=== PATIENT | male | born 1955 | race Caucasian/White ===

== ENCOUNTER → 2016-09-06 | Outpatient (CLI) | payer BC ==
[~2016-09-06] MED LIST: ACHYD1T PO; ASCO500T6 PO; ASPI325T32 PO; AZIT250T PO; CALC-694 PO; CATHETER FLUSH 10 ML SYR IV PRN; CETI10TA17 PO; CHOL20003 PO; COLE1TAB PO; Coumadin PO; GLIM4TAB PO; INSU100V6 SQ; IRON150C3 PO; LISI20TA PO; LUTE20TA PO; MTF500T PO; NAPR220T66 PO; NFR150C PO; OXYC-464 PO; POTA99TA21 PO; SENN-20 PO; TRAM50TA2 PO; TRM50T PO; [UNRECOGNIZED DRUG - OTHER] TP
--- NOTE | 2016-09-06 19:24 | Diagnostic Imaging Report ---
EXAMINATION: Three-phase bone scan. INDICATION: Bilateral knee pain. TECHNIQUE: After the intravenous administration of 26.3 Tc labeled "MDP" intravenously, three-phase bone scan over the knees was performed with flow, blood pool and delayed phase images obtained. FINDINGS: There are bilateral knee prostheses seen with photopenia expected at their sides. There is mild hyperemia of the tibial side of the prosthesis, particularly on the right side. There is also blood pool phase moderate activity around the right knee and mild activity around the left knee. There is delayed phase mild increased activity around the prostheses, bilaterally. IMPRESSION: Nonspecific mild to moderate activity around the knee prostheses, slightly more prominent around the right knee. Concurrent radiographs are not available. Slight loosening or reactive inflammatory changes are possible. Infection is unlikely. Correlate clinically and with new radiographs. Dictated by: Dictated on workstation # [id number]
== END ==
LOC: CARD 11:33
PROVIDERS: ATTEND Orthopaedic Surgery
DX: M25.561 Pain in right knee (principal); M25.562 Pain in left knee; Z96.653 Presence of artificial knee joint, bilateral
CPT/HCPCS: 78315

== ENCOUNTER → 2016-09-12 | Outpatient (CLI) | payer BC ==
[~2016-09-12] MED LIST changes: -CATHETER FLUSH 10 ML SYR IV PRN
[2016-09-12 17:45] LABS: MEAN PLATELET VOLUME 10.5 FL (7.4-10.4); RED BLOOD COUNT 4.3 10^6/uL (4.35-5.85); RED CELL DISTRIBUTION WIDTH 15.4 % (10.0-14.5); WHITE BLOOD COUNT 7.2 10^3/uL (4.3-11.0)
[2016-09-12 18:00] LABS: URIC ACID 4.2 MG/DL (2.6-7.2); hs C REACTIVE PROTEIN 0.09 MG/DL (0.00-0.50)
== END ==
LOC: LAB 17:18
PROVIDERS: ATTEND Nurse Practitioner Family
DX: M25.561 Pain in right knee (principal); M25.562 Pain in left knee; M79.1 Myalgia
CPT/HCPCS: 36415; 84550; 85027; 85652; 86038; 86141; 86430

== ENCOUNTER → 2016-09-20 | Outpatient (CLI) | payer BC ==
--- NOTE | 2016-09-20 17:07 | Diagnostic Imaging Report ---
PROCEDURE: MRI lumbar spine. TECHNIQUE: Multiplanar, multisequence MRI of the lumbar spine was performed without contrast. INDICATION: Bilateral leg pain. FINDINGS: There is satisfactory alignment at the posterior spinal line. Slight straightening of the lordotic curvature however is noted which may relate to muscle spasm. The vertebral body heights are preserved. There is mild endplate edema along the lower endplates of L2 and L4 levels. There is disc desiccation at all levels. There is moderate disc height loss at the L2-L3 level. There is unremarkable appearance of the cauda equina and conus medullaris. Incidental note of a 9 cm T2 hyperintense lesion in the left flank could be a renal cystic lesion. This is not well evaluated however on this exam. Renal ultrasound correlation is recommended. T12-L1: There is minimal disc herniation. There is no central canal, lateral recess, or foraminal stenosis. L1-L2: There is minimal disc bulge with no significant central canal or lateral recess stenosis. No foraminal narrowing. L2-L3: There is a diffuse disc bulge and moderate facet hypertrophy. There is moderate central canal stenosis reducing the AP dimension of the canal to 8.2 mm and there is rfog-ap-vlmzqsvf lateral recess stenosis on the right side and mild lateral recess stenosis on the left. The foramina demonstrate no significant stenosis. L3-L4: There is a diffuse disc bulge and xilduodu-lb-jcojwh facet arthropathy. There is moderate central canal stenosis reducing the AP dimension of the canal to 7.8 mm. There is bilateral eirv-an-hubnwucz lateral recess stenosis abutting the descending L4 nerve roots. The foramina demonstrate mild narrowing on the right and no significant narrowing on the left. L4-L5: There is a mild disc bulge and bilateral moderate facet arthropathy. No central canal stenosis. There is bhotecun-xj-vifmcd lateral recess narrowing on the left encroaching upon the descending left L5 nerve roots. There is moderate stenosis of the right lateral recess abutting the descending right L5 root. The foramina demonstrate moderate stenosis on the left and no significant stenosis on the right side. L5-S1: There is a minimal disc bulge and mild facet hypertrophy bilaterally. No central canal or lateral recess stenosis. No foraminal narrowing. IMPRESSION: 1. Zps-sl-zzctm lumbar spine disc and facet degenerative changes. There is xyqlumoo-qk-dacvpc lateral recess stenosis at L4-L5 on the left side encroaching upon the descending left L5 nerve root. Other findings as above. 2. There is a large partially visualized left flank lesion probably arising from the left kidney and could be a cystic lesion. Better evaluation with a renal ultrasound is recommended. Report was faxed to the office of Dr. Kang Mills at 5:06 p.m., by marlon (for WINTER). Dictated by: Dictated on workstation # [id number]
== END ==
LOC: RAD 15:26
PROVIDERS: ATTEND Orthopaedic Surgery
DX: M51.37 Other intervertebral disc degeneration, lumbosacral region (principal); M48.06 Spinal stenosis, lumbar region
CPT/HCPCS: 72148

== ENCOUNTER → 2016-10-15 | Outpatient (CLI) | payer BC ==
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
--- NOTE | 2016-10-15 19:33 | Diagnostic Imaging Report ---
CLINICAL INDICATION: Patient states he has low back pain with bilateral knee pain. EXAM: MRI of the thoracic spine performed without IV contrast. Sequences include sagittal T1, sagittal T2, sagittal T2 fat-sat, coronal T1, and axial T2. COMPARISON: None. FINDINGS: There is levoscoliosis of the upper thoracic spine with apex at the T2-T3 intervertebral level. There is no gross vertebral anomaly. There is associated mild right curvature of the mid to lower thoracic spine. There are minimal sized anterior spurs involving the mid and lower thoracic spine. There is mild to moderate facet arthropathy which is worse in the mid to lower thoracic spine region. There is moderate left-sided T3-T4 and mild to moderate left-sided T4-T5 neural foramen narrowing due to facet arthropathy. There is moderate bilateral neural foramen narrowing due to facet arthropathy at the T8-T9 level. There is no significant central spinal canal narrowing. Intervertebral disc heights are well-maintained. There is no significant soft tissue abnormality. The thoracic spinal cord has normal signal with normal caliber. There is no acute thoracic spine fracture or dislocation. There is an incompletely imaged large cystic structure in the expected region of the left kidney. There appears to be a moderate-sized hiatal hernia. IMPRESSION: 1: There is no acute fracture or dislocation. 2: There is scoliosis of the thoracic spine described above. 3: There is mild to moderate degenerative disease of the thoracic spine. There is multilevel mild to moderate neural foramen narrowing. There is no significant central canal narrowing. 4: There is an incompletely imaged large cystic structure in the expected region of the left kidney. Nonemergent renal ultrasound is suggested for further evaluation. 5: There appears to be a moderate sized hiatal hernia. Chest x-ray and KUB x-ray would better evaluate. Dictated by: Dictated on workstation # [id number]
== END ==
LOC: RAD 15:43
PROVIDERS: ATTEND Orthopaedic Surgery Orthopaedic Surgery of the Spine
DX: M54.2 Cervicalgia (principal); M54.14 Radiculopathy, thoracic region; I70.213 Atherosclerosis of native arteries of extremities with intermittent claudication, bilateral legs
CPT/HCPCS: 72141; 72146; 93922; 93925

== ENCOUNTER 2016-11-02 06:44 | Inpatient (IN) | payer BC ==
[~2016-11-02] VITALS: Ht 193 cm; Wt 101.2 kg
[2016-11-02 08:01] LABS: KETONES,URINE 3+ (NEGATIVE); LEUKOCYTE ESTERASE ,URINE 1+ (NEGATIVE); NITRITE,URINE NEGATIVE (NEGATIVE); PH,URINE 5 (5-9); PROTEIN,URINE 3+ (NEGATIVE); UROBILINOGEN,URINE 1 MG/DL (NORMAL)
[2016-11-02 08:13] LABS: SQUAMOUS EPITHELIAL CELL,UR RARE /HPF
[2016-11-02 08:14] LABS: BILIRUBIN,URINE 1+ (NEGATIVE); GRANULAR CASTS,URINE 25-50 /LPF
[2016-11-02] MEDS ORDERED: NS IV 1000 ML 1,000 ML IV ONE (08:19)
[2016-11-02 08:29] LABS: BASOPHILS % (AUTO) 0 % (0-10); EOSINOPHILS % (AUTO) 0 % (0-10); LYMPHOCYTES # (AUTO) 1.2 X 10^3 (1.0-4.0); LYMPHOCYTES % (AUTO) 7 % (12-44); MEAN CORPUSCULAR HEMOGLOBIN 28 PG (25-34); MEAN CORPUSCULAR HGB CONC 32 G/DL (32-36); MEAN CORPUSCULAR VOLUME 89 FL (80-99); MEAN PLATELET VOLUME 10.3 FL (7.4-10.4); MONOCYTES # (AUTO) 1.5 X 10^3 (0.0-1.0); MONOCYTES % (AUTO) 9 % (0-12); NEUTROPHILS # (AUTO) 15.1 X 10^3 (1.8-7.8); NEUTROPHILS % (AUTO) 85 % (42-75); PLATELET COUNT 202 10^3/uL (130-400); RED BLOOD COUNT 4.45 10^6/uL (4.35-5.85); RED CELL DISTRIBUTION WIDTH 14.9 % (10.0-14.5); WHITE BLOOD COUNT 17.8 10^3/uL (4.3-11.0)
[2016-11-02] MEDS ORDERED: cefTRIAXone INJECTION 1,000 MG in NS (IVPB) 50 ML IV ONE (08:30)
[2016-11-02 08:38] LABS: INR 1.1 (0.8-1.4); PROTHROMBIN TIME PATIENT 13.7 SEC (12.2-14.7)
[2016-11-02 08:47] LABS: BAND NEUTROPHILS 1 %; LYMPHOCYTES % (MANUAL) 10 %; NEUTROPHILS % (MANUAL) 83 %
[2016-11-02 08:49] LABS: ALANINE AMINOTRANSFERASE 18 U/L (0-55); ALBUMIN 3.7 G/DL (3.2-4.5); ANION GAP 9 MMOL/L (5-14); ASPARTATE AMINO TRANSFERASE 21 U/L (5-34); BILIRUBIN,TOTAL 0.9 MG/DL (0.1-1.0); BLOOD UREA NITROGEN 16 MG/DL (7-18); BUN/CREATININE RATIO 14; CALCIUM 9.2 MG/DL (8.5-10.1); CARBON DIOXIDE 27 MMOL/L (21-32); CHLORIDE 102 MMOL/L (98-107); CREATININE SERUM 1.11 MG/DL (0.60-1.30); GFR ESTIMATED > 60; GLUCOSE 157 MG/DL (70-105); POTASSIUM 4.1 MMOL/L (3.6-5.0); SODIUM 138 MMOL/L (135-145); TOTAL PROTEIN 6.9 G/DL (6.4-8.2); hs C REACTIVE PROTEIN 12.29 MG/DL (0.00-0.50)
--- NOTE | 2016-11-02 09:14 | Diagnostic Imaging Report ---
EXAMINATION: PA and lateral views of the chest. INDICATION: Chest pain. FINDINGS: There is a mild opacity in the right lung base may relate to mild pneumonia or more likely subsegmental atelectasis. The left lung is clear. Background pulmonary hyperinflation seen. The heart size is normal. No effusion or pneumothorax. IMPRESSION: Small right basilar opacity favored to be atelectasis, but could relate to a mild pneumonia. Correlate clinically. Dictated by: Dictated on workstation # [id number]
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
[2016-11-02] MEDS ORDERED: NS 100 ML (IVPB) BAG IV ONE ×2 (10:00→13:45)
[2016-11-02] MEDS ORDERED: CATHETER FLUSH 10 ML SYR IV PRN ×3 (10:00→13:45)
[2016-11-02] MEDS ORDERED: IOHEXOL 350 MG/ML 100 ML (OMNIPAQUE 350) VIAL IV ONE ×2 (10:00→13:45)
--- NOTE | 2016-11-02 10:52 | Diagnostic Imaging Report ---
CT scan of the neck and chest performed with intravenous contrast. INDICATION: Pharyngitis. Coughing up blood. FINDINGS: CT neck: There is soft tissue thickening and enhancement in the peritonsillar regions more prominent on the right side. This is not associated with an abscess. This is presumably related to infection rather than an infiltrative underlying mass. Correlate with clinical exam findings. There is no abnormality seen in the larynx with symmetric vocal cords. There is a mildly enlarged lymph node measuring 1.6 CM in short axis. This is at the level II right cervical chain. No other significant lymphadenopathy in the neck identified. The jugular vein and the carotid arterial vascular enhancement appeared grossly unremarkable. The parotid, submandibular and thyroid exams appear unremarkable. The osseous structures demonstrate degenerative changes with nonaggressive lesion. The paranasal sinuses appear clear. CT chest: There are pulmonary nodules in the right lower lobe up to 1.1 CM in size. Smaller nodules more posteriorly and inferiorly in the right the lower lobe are seen. There is no significant consolidation or sizable mass however and these nodules are probably unrelated to the symptoms. There are infracarinal lymph nodes up to 1.2 CM in size with nonspecific calcifications seen. There are prominent right hilar lymph nodes up to 1.6 CM in size. No axillary lymphadenopathy is seen. The heart size is normal. No pericardial or pleural effusion. There is a small to moderate hiatal hernia. Nonspecific calcifications at the undersurface of the right diaphragm is seen. The sections in the upper abdomen demonstrate partially visualized large mass in the left kidney measuring at least 10 x 8.7 x 10 CM concerning for primary renal cancer. The osseous structures appear grossly unremarkable. IMPRESSION: CT neck: There is a prominent thickening in the peritonsillar region with associated mild upper right neck lymphadenopathy likely related to infection. Correlate clinically and ensure resolution after treatment. CT chest: 1. Partially visualized 10 cm left renal mass suspicious for renal cell carcinoma. 2. Nodules in the right side lower lobe up to 1.1 CM in size, although nonspecific are concerning for metastasis. There are also slightly enlarged right hilar and infracarinal lymph nodes which could be neoplastic. 3. Small to moderate-sized hiatal hernia. Dictated by: Dictated on workstation # [id number]
[2016-11-02] MEDS ORDERED: fentaNYL INJECTION 100 MCG/2 ML AMP IVP ONE (11:00)
[2016-11-02 11:40] VITALS: BP 162/93
[2016-11-02] MEDS: NS IV 1000 ML 1,000 ML IV SCH (12:17)
[2016-11-02] MEDS: ACETAMINOPHEN 325 MG TABLET/CAPLET (TYLENOL) PO PRN (12:17)
[2016-11-02] MEDS: AZITHROMYCIN 500 MG/NS 250 ML IVPB IV SCH ×2 (12:18)
[2016-11-02 12:49] VITALS: BP 135/62
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
[2016-11-02] MEDS: IBUPROFEN TABLET 200 MG TAB PO PRN ×2 (13:12→22:43)
[2016-11-02] MEDS ORDERED: NAPR220T66 PO (13:20)
[2016-11-02] MEDS ORDERED: INSU100I10 SC (13:20)
[2016-11-02] MEDS ORDERED: FERR-84 PO (13:20)
[2016-11-02 13:36] VITALS: BP 125/73
--- NOTE | 2016-11-02 14:02 | Progress Note-Standard ---
Standard Progress Note HPI/CC on Admission this is a 61-year-old white male who began having a sore throat yesterday. He presented to the emergency room today with complaints of inability to breathe and inability to swallow. He notes he had night sweats last night but has not had antecedent to this time. He also is being worked up for a left kidney mass uncertain etiology, that was found incidentally on an MRI of the thoracic spine. He does have some pulmonary nodules as well. He had been coughing up some blood this morning. He was hospitalized with a similar episode of tonsillitis approximately 6 years ago. He denies having any hematuria. Progress Notes/Assess & Plan Date Seen 11/02/16 Time Seen by Provider: 07:26 Assess & Plan/Chief Complaint 1230- Was consulted on patient for pharyngitis. Patient currently admitted through ER. States pain is now a 5 out of 10 and was initially a 7 out of 10 in his throat. He is getting ready to drink some clear liquids. States throat discomfort began yesterday morning and just continued to worsen. He at one point states he was spitting out blood tinged sputum. Had CT neck completed that did note prominent thickening of the peritonsillar region with right lymphadenopathy. No drainable mass noted. Reports history or tobacco usage. Physical Exam- The patent's dental partial was removed. His pharyngial cavity was reddened with obvious swelling. No exudate noted. Tongue white. Tenderness noted to palpation of lymphadenopathy on the right side Assessment- Pharyngitis, lymphadenopathy Plan- Will continue with current Rocephin and azithromycin treatments. Will watch to see if patients symptoms continue to improve. Labs Laboratory Tests 11/02/16 08:15 Short Stay Final Diagnosis pharyngitis. lymphadenopathy. KERA ALFORD [employer] Nov 02, 2016 14:01
[2016-11-02] MEDS: inSUlin (REGULAR) HUMAN 1 UNIT/0.01 ML (CHARGE PER UNIT) SC SCH ×2 (14:19→20:28)
[2016-11-02] MEDS: ENOXAPARIN 40 MG/0.4 ML (LOVENOX) SYR SC SCH (14:21)
[2016-11-02] MEDS: fentaNYL INJECTION 100 MCG/2 ML AMP IV PRN ×2 (14:27→22:40)
[2016-11-02 14:29] VITALS: BP 118/68
[2016-11-02 15:39] VITALS: BP 105/67
--- NOTE | 2016-11-02 16:25 | Diagnostic Imaging Report ---
PROCEDURE: CT abdomen and pelvis with and without contrast. TECHNIQUE: Precontrast acquisitions were acquired through the abdomen and pelvis. Multiple contiguous axial images were obtained through the abdomen and pelvis after the administration of intravenous contrast. INDICATION: Followup of renal mass noted on CT scan of the chest from 11/02/2016. FINDINGS: There is a lobulated enhancing mass arising from the left kidney measuring upwards of 10 x 12 cm. This arises from the upper pole. The inferior portion of left kidney appears normal. Right kidney appears normal. No hydronephrosis. Liver shows no masses with normal enhancement. Gallbladder is absent. There is some air in the bile ducts consistent with previous surgery. Pancreas is atrophic. The spleen appears normal. The aorta and abdominal vessels show normal enhancement. There is atherosclerosis without aneurysm. No evidence of retroperitoneal adenopathy of pathologic size. There is large fixed hiatal hernia. The stomach and small bowel are not distended. The colon shows normal stool and gas pattern. The appendix is visualized and normal. There is diffuse diverticulosis with diffuse thickening of the sigmoid colon bowel wall. No free fluid or free air to indicate acute diverticulitis. Bladder is opacified on the delayed images and appears normal. IMPRESSION: 1. Large lobulated enhancing mass off the upper pole of the left kidney measuring upwards of 10 x 12 cm. This is consistent with primary renal cell carcinoma. No intra-abdominal adenopathy of pathologic size demonstrated. 2. Rather severe diverticulosis of the sigmoid colon with thickened colon bowel wall consistent with chronic inflammatory process. 3. Large fixed hiatal hernia without evidence of incarceration. Dictated by: Dictated on workstation # [id number]
[2016-11-02] MEDS: CEFUROXIME INJECTION 1,500 MG in NS (IVPB) 50 ML IV SCH (17:20)
--- NOTE | 2016-11-02 17:21 | Progress Note-Standard ---
Standard Progress Note Progress Notes/Assess & Plan Date Seen by Provider: Nov 02, 2016 Time Seen by Provider: 16:50 Progress/Assessment & Plan [facility] Patient seen sore throat better CT-shows thickening on right but no abscess tenderr right neck with nodes no abscess in neck currently on Rocephin and zithromax will switch to cefuroxime 1.5gm Iv q 8 D/c Rocephin regular diet will follow-up in am Final Diagnosis Acute Right Pharyngitis with cervical adenitis JAROD HEREDIA MD Nov 02, 2016 5:21 pm
[2016-11-02 19:07] VITALS: BP 117/67
[2016-11-02] MEDS ORDERED: inSUlin DETERMIR 1 UNIT/0.01 ML (LEVEMIR) CHARGE PER UNIT SQ SCH (21:00)
[2016-11-02] MEDS ORDERED: COLESTIPOL 1 GM (COLESTID) TAB PO SCH (21:00)
[2016-11-03] VITALS: BP 132/65
[2016-11-03] MEDS: NS IV 1000 ML 1,000 ML IV SCH ×2 (00:33→08:36)
[2016-11-03] MEDS: CEFUROXIME INJECTION 1,500 MG in NS (IVPB) 50 ML IV SCH ×3 (01:10→17:47)
[2016-11-03] MEDS: ACETAMINOPHEN 325 MG TABLET/CAPLET (TYLENOL) PO PRN ×2 (03:08→12:16)
[2016-11-03 04:00] VITALS: BP 123/65
[2016-11-03 05:35] LABS: BASOPHILS % (AUTO) 0 % (0-10); EOSINOPHILS # (AUTO) 0.2 10^3/uL (0.0-0.3); EOSINOPHILS % (AUTO) 1 % (0-10); LYMPHOCYTES # (AUTO) 1.4 X 10^3 (1.0-4.0); LYMPHOCYTES % (AUTO) 11 % (12-44); MEAN CORPUSCULAR HEMOGLOBIN 28 PG (25-34); MEAN CORPUSCULAR HGB CONC 31 G/DL (32-36); MEAN CORPUSCULAR VOLUME 91 FL (80-99); MEAN PLATELET VOLUME 10.8 FL (7.4-10.4); MONOCYTES # (AUTO) 1.5 X 10^3 (0.0-1.0); MONOCYTES % (AUTO) 11 % (0-12); NEUTROPHILS # (AUTO) 9.9 X 10^3 (1.8-7.8); NEUTROPHILS % (AUTO) 76 % (42-75); PLATELET COUNT 171 10^3/uL (130-400); RED BLOOD COUNT 3.94 10^6/uL (4.35-5.85); RED CELL DISTRIBUTION WIDTH 14.9 % (10.0-14.5)
[2016-11-03 06:10] LABS: ALANINE AMINOTRANSFERASE 26 U/L (0-55); ALBUMIN 3.1 G/DL (3.2-4.5); ANION GAP 7 MMOL/L (5-14); ASPARTATE AMINO TRANSFERASE 26 U/L (5-34); BILIRUBIN,TOTAL 0.5 MG/DL (0.1-1.0); BLOOD UREA NITROGEN 15 MG/DL (7-18); BUN/CREATININE RATIO 16; CALCIUM 8.1 MG/DL (8.5-10.1); CARBON DIOXIDE 24 MMOL/L (21-32); CHLORIDE 109 MMOL/L (98-107); CREATININE SERUM 0.91 MG/DL (0.60-1.30); GFR ESTIMATED > 60; POTASSIUM 4.2 MMOL/L (3.6-5.0); SODIUM 140 MMOL/L (135-145); TOTAL PROTEIN 5.7 G/DL (6.4-8.2)
[2016-11-03 06:14] LABS: GLUCOSE 60 MG/DL (70-105)
[2016-11-03] MEDS: inSUlin (REGULAR) HUMAN 1 UNIT/0.01 ML (CHARGE PER UNIT) SC SCH ×4 (06:19→20:24)
--- NOTE | 2016-11-03 06:28 | Progress Note-Standard ---
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
[2016-11-03] MEDS: GLIMEPIRIDE 4 MG (AMARYL) TAB PO SCH (06:54)
[2016-11-03 08:18] VITALS: BP 147/76
[2016-11-03] MEDS: lisINopril 20 MG (ZESTRIL) TAB PO SCH (08:20)
[2016-11-03] MEDS ORDERED: cefTRIAXone 1 GM/NS 50 ML IVPB IV SCH ×2 (08:30)
--- NOTE | 2016-11-03 11:04 | Progress Note-Hospitalist ---
Subjective HPI/CC On Admission Date Seen by Provider: Nov 03, 2016 Time Seen by Provider: 10:30 this is a 61-year-old white male who began having a sore throat yesterday. He presented to the emergency room today with complaints of inability to breathe and inability to swallow. He notes he had night sweats last night but has not had antecedent to this time. He also is being worked up for a left kidney mass uncertain etiology, that was found incidentally on an MRI of the thoracic spine. He does have some pulmonary nodules as well. He had been coughing up some blood this morning. He was hospitalized with a similar episode of tonsillitis approximately 6 years ago. He denies having any hematuria. Date Seen 11/03/16 Subjective/Events-last exam patient notes that he's been able to eat and drink much better than he had. Her Francis saw the patient this morning and noted that he would go could go home if our workup is otherwise complete. I discussed with the patient the fact that he does have a lobulated mass 10 x 12 cm on the left kidney. He had been told in the past that was on the right kidney and has been waiting for people to call him to get a doctor's appointment. He is agreeable to having Dr. Mcneil see him here and Dr. Saldivar as well Review of Systems HEENT: Sore Throat Musculoskeletal: neck pain Objective Exam Vital Signs Vital Sign - Last 12Hours 11/02/16 11/02/16 07:14 11:40 Temp 98.1 Pulse 101 Resp 18 B/P (MAP) 141/69 Pulse Ox 98 O2 Delivery Room Air Capillary Refill : Less Than 3 Seconds General Appearance: No Apparent Distress, WD/WN HEENT: Tonsillar Enlargement Neck: Limited Range of Motion, Lymphadenopathy (R) Respiratory: Lungs Clear, Normal Breath Sounds, No Accessory Muscle Use, No Respiratory Distress Cardiovascular: Regular Rate, Rhythm, No Edema, No Gallop, No Murmur Gastrointestinal: Normal Bowel Sounds, Soft Extremity: Normal Inspection Neurologic/Psychiatric: Alert, Oriented x3, No Motor/Sensory Deficits Skin: Normal Color, Warm/Dry Results/Procedures Lab Laboratory Tests 11/03/16 05:05 Assessment/Plan Assessment and Plan Assess & Plan/Chief Complaint 1.sepsis with tachycardia fever and elevated white count with a left shiftwhite count is down to 13,000-day number 2 Qianomax 2. severe pharyngitis,tonsillitis with lymphadenopathy no evidence of abscess on CT neck-Dr. Francis's consult appreciated 3. Left renal mass consistent with a primary renal cell cancer-have discussed with Dr. Ch and Dr. Mcneil- they will see and consult 4. Type II diabetes on insulin-hypoglycemic this morning we'll decrease the at bedtime Lantus 5. Conjunctivitis right eye-improved 6. Hypertension by history 7. Pulmonary nodules of unknown certain etiology-possibly related to a primary renal cell malignancy 8. oral thrush 9. 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 tobaccoism counseled to discontinue most likely discharge in the morning FELIPE STEWART MD Nov 03, 2016 11:04
[2016-11-03 11:30] LABS: BILIRUBIN,URINE NEGATIVE (NEGATIVE); KETONES,URINE NEGATIVE (NEGATIVE); LEUKOCYTE ESTERASE ,URINE NEGATIVE (NEGATIVE); NITRITE,URINE NEGATIVE (NEGATIVE); PH,URINE 5 (5-9); PROTEIN,URINE 2+ (NEGATIVE); UROBILINOGEN,URINE NORMAL (NORMAL)
[2016-11-03 11:45] LABS: WBC,URINE RARE /HPF
[2016-11-03 12:00] VITALS: BP 166/78
[2016-11-03] MEDS: AZITHROMYCIN 500 MG/NS 250 ML IVPB IV SCH ×2 (12:09)
[2016-11-03] MEDS: ENOXAPARIN 40 MG/0.4 ML (LOVENOX) SYR SC SCH (14:15)
--- NOTE | 2016-11-03 14:49 | Oncology Consultation ---
Visit Information Visit Information Date of Admission Nov 02, 2016 at 11:12 Attending Physician Danielle Tirado DO Admitting Physician Silver Nation MD Chief Complaint Renal cell mass and lung nodules Interval History Mr. Mejía is a 61 year old white admitted to the hospital due to fever, pharyngitis difficulty breath and swallow as well leukocytosis with left shift in differentials. He was treated with IV antibiotic since admission. He is getting much better and possible going home tomorrow. However, there was a large mass noticed on his scan in here and in [place]. Pt does not know what is going on and he needs an oncology evaluation. We are called to establish the care and further work up and follow up. He had his knee surgery by Dr Moore in [place] and still had pain in his legs 2 months after the knee surgery. He had MRI of spine evaluation in [place] and was told that he had kidney mass and also lung lesions. He was supposed to have a follow up with an oncologist in [place] but never happened. I consulted the patient on: 11/03/16 14:41 Constitutional: malaise EENTM: tearing, throat pain, throat swelling Respiratory: cough, hemoptysis, phlegm Cardiovascular: no symptoms reported Gastrointestinal: no symptoms reported Genitourinary: no symptoms reported Musculoskeletal: joint pain Psychiatric/Neurological: No Symptoms Reported Health Status Allergies Coded Allergies: meperidine (Verified Allergy, Unknown, RASH, 11/02/16) Home Medications Ascorbic Acid (Vitamin C) 500 Mg Tablet, 500 MG PO DAILY, (Reported) Calcium Carbonate/Vitamin D3 (Calcium 600 + Vit D Caplet) 1 Each Tablet, 1 TAB PO BID, (Reported) Cholecalciferol (Vitamin D3) (Vitamin D3) 2,000 Unit Capsule, 4,000 UNIT PO DAILY, (Reported) Colestipol Hcl,Micronized (Colestipol Hcl) 1 Gm Tablet, 2 GM PO BID, (Reported) TAKES 2 (1GM) TABLET Ferrous Sulfate (Iron) 325 Mg Tablet, 325 MG PO DAILY PRN for LOW RED BLOOD COUNT, (Reported) Glimepiride (Glimepiride) 4 Mg Tablet, 4 MG PO BID, (Reported) Insulin Glargine,Hum.rec.anlog (Lantus Solostar) 100 Unit/1 Ml Insuln.pen, 20 UNITS SC HS, (Reported) Lisinopril (Prinivil) 20 Mg Tablet, 20 MG PO DAILY, (Reported) Lutein (Lutein) 20 Mg Tablet, 40 MG PO DAILY, (Reported) Metformin Hcl (Metformin 500 Mg) 500 Mg Tablet, 500 MG PO BID WITH MEALS, ( Reported) Naproxen Sodium (Aleve) 220 Mg Tablet, 440 MG PO BID, (Reported) TAKES 2 (220MG) TABLETS Potassium Gluconate (Potassium) 99 Mg Tablet, 99 MG PO DAILY, (Reported) Flako AC/Safflower Oil (Vitamin E Beauty Oil) 52 Ml Oil, TP BID, (Reported) APPLY TO KNEES GIE-Xfttzk-Ignoom Hx Patient Social History Marrital Status: single Employed/Student: employed Alcohol Use: Denies Use Recreational Drug Use: No Smoking Status: Current Everyday Smoker Type Used: Cigarettes Recent Foreign Travel: No Contact w/other who traveled: No Recent Infectious Disease Expo: No Recent Hopitalizations: No Physical Abuse Screen: No Sexual Abuse: No Immunizations Up To Date Tetanus Booster (TDap): More than 5yrs Date of Pneumonia Vaccine: Sep 08, 2014 Family Medical History Significant Family History: No Pertinent Family Hx Family History: Diabetes mellitus 19 FATHER 19 MOTHER G8 BROTHER FH: skin cancer 19 MOTHER Family history: Arthritis Family history: Coronary thrombosis Family history: Diabetes mellitus History of - respiratory disease No Family History of: Abdominal aortic aneurysm Rush's disease Alcoholism Aphasia Cancer Cancer of colon Cataract Chest pain Congenital heart disease Congestive heart failure Cystic fibrosis Dementia Dysphagia Family history: Allergy Family history: Alzheimer's disease Family history: Asthma Family history: Breast disease Family history: Cardiovascular disease Family history: Gastrointestinal disease Family history: Glaucoma Family history: Hypertension Family history: Osteoporosis Family history: Thyroid disorder Headache Hearing loss Heart disease Hereditary disease History of - anemia History of - disorder History of drug abuse Human immunodeficiency virus (HIV) seropositivity Hypercholesterolemia Infertile Kidney disease Malignant neoplasm of lung Myocardial infarction Parkinson's disease Prostate cancer Psychotic disorder Seizure disorder Stroke Tuberculosis Visual impairment Physical Exam Vital Signs Vital Sign - Last 12Hours 11/02/16 11/02/16 07:14 11:40 Temp 98.1 Pulse 101 Resp 18 B/P (MAP) 141/69 Pulse Ox 98 O2 Delivery Room Air Capillary Refill : Less Than 3 Seconds General Appearance: No Apparent Distress, Obese HEENT: PERRL/EOMI, Pharyngeal Erythema Neck: Limited Range of Motion, Lymphadenopathy (L), Lymphadenopathy (R), Tender Lateral Respiratory: Chest Non Tender, Lungs Clear, No Accessory Muscle Use, No Respiratory Distress Cardiovascular: Regular Rate, Rhythm, No Edema, No Gallop, No JVD Gastrointestinal: Non Tender, Soft Extremity: Non Tender, No Calf Tenderness, No Pedal Edema Neurologic/Psychiatric: Alert, Oriented x3 Data Review Labs Laboratory Tests 11/03/16 05:05 Laboratory Tests 11/02/16 07:20: 11/02/16 07:55: Urine Specific [place] 1.030H, Urine Protein 3+H, Urine Ketones 3+H, Urine Bilirubin 1+H, Urine Leukocyte Esterase 1+H, Urine RBC (Auto) 1+H, Urine WBC 10- 25H, Urine Granular Casts 25-50H, Urine Mucus SMALLH 11/02/16 08:15: White Blood Count 17.8H, Hemoglobin 12.6L, Red Cell Distribution Width 14.9H, Neutrophils (%) (Auto) 85H, Lymphocytes (%) (Auto) 7L, Neutrophils # (Auto) 15.1H, Monocytes # (Auto) 1.5H, Glucose Level 157H, C-Reactive Protein High Sensitivity 12.29H 11/02/16 11:59: 11/02/16 14:17: Glucometer 125H 11/02/16 19:58: Glucometer 186H 11/03/16 05:05: White Blood Count 13.0H, Red Blood Count 3.94L, Hemoglobin 11.2L, Hematocrit 36L , Mean Corpuscular Hemoglobin Concent 31L, Red Cell Distribution Width 14.9H, Mean Platelet Volume 10.8H, Neutrophils (%) (Auto) 76H, Lymphocytes (%) (Auto) 11L, Neutrophils # (Auto) 9.9H, Monocytes # (Auto) 1.5H, Chloride Level 109H, Glucose Level 60*L, Calcium Level 8.1L, Total Protein 5.7L, Albumin 3.1L 11/03/16 06:47: 11/03/16 08:43: Glucometer 132H 11/03/16 11:25: Urine Specific [place] 1.015L, Urine Protein 2+H, Urine Glucose (UA) 1+H, Urine RBC (Auto) 1+H 11/03/16 14:12: Glucometer 275H Impression & Plan Impression & Plan IMP: 1. Large left renal mass [id number] most likely renal cell carcinoma 2. RLL 1.2cm Lung nodule/lesion, ? metastasis. Need work up before surgery of nephrectomy. 3. Right neck lymphadenopathy, possible related to current pharyngitis but can not completely rule out other possibilities. 4 .Severe pharyngitis,tonsillitis with lymphadenopathy no evidence of abscess on CT neck 5. Sepsis with tachycardia fever and elevated white count with a left shift, improving with antibiotics. 6. Type II diabetes on insulin 7. Conjunctivitis right eye 8. Hypertension by history 9. 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 Pt needs to have a staging work up as out-pt. I will see him next week at cancer center. I have given him my card and phone number. 2. We will need to get his records and scans from [facility] and compare his old scans to determine the lung nodule and to determine necessity of PET CT and of biopsy before the nephrectomy. However, because of his lymphadenopathy of the neck and pharygitis, I would prefer to wait until the infection completely cleared before the PET CT. 3. Pt can go home from Hem/Onc standpoint of view. Thank you for the consult. ARABELLA BILLY MD Nov 03, 2016 14:49
[2016-11-03 16:15] VITALS: BP 158/84
[2016-11-03] MEDS ORDERED: inSUlin DETERMIR 1 UNIT/0.01 ML (LEVEMIR) CHARGE PER UNIT SQ SCH (21:00)
[2016-11-03] MEDS: IBUPROFEN TABLET 200 MG TAB PO PRN (21:47)
[2016-11-04] VITALS: BP 155/80
[2016-11-04] MEDS: CEFUROXIME INJECTION 1,500 MG in NS (IVPB) 50 ML IV SCH ×2 (00:41→08:11)
[2016-11-04] MEDS: ACETAMINOPHEN 325 MG TABLET/CAPLET (TYLENOL) PO PRN (00:42)
[2016-11-04 04:00] VITALS: BP 159/76
[2016-11-04] MEDS: inSUlin (REGULAR) HUMAN 1 UNIT/0.01 ML (CHARGE PER UNIT) SC SCH ×2 (06:50→09:52)
[2016-11-04] MEDS: GLIMEPIRIDE 4 MG (AMARYL) TAB PO SCH (06:55)
[2016-11-04 07:43] VITALS: BP 156/82
[2016-11-04] MEDS: lisINopril 20 MG (ZESTRIL) TAB PO SCH (08:11)
[2016-11-04] MEDS ORDERED: CEFU500T63 PO (11:37)
--- NOTE | 2016-11-04 11:45 | Discharge Summary-Hospitalist ---
Diagnosis/Chief Complaint Date of Admission Nov 02, 2016 at 11:12 Date of Discharge 11/04/2016 Discharge Date: Nov 04, 2016 Discharge Time: 12:00 Admission Diagnosis 1.sepsis with tachycardia fever and elevated white count with a left shift 2. severe pharyngitis,tonsillitis with lymphadenopathy no evidence of abscess on CT neck 3. Left renal mass etiology to be determined 4. Type II diabetes on insulin 5. Conjunctivitis right eye 6. Hypertension by history 7. Pulmonary nodules of unknown certain etiology 8. oral thrush 9. 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 severe pharyngitis,tonsillitis with lymphadenopathy no evidence of abscess on CT neck-Dr. Francis's consult appreciated 3. Left renal mass consistent with a primary renal cell cancer-have discussed with Dr. Haley and Dr. Mcneil- they will see and consult 4. Type II diabetes on insulin-hypoglycemic this morning we'll decrease the at bedtime Lantus 5. Conjunctivitis right eye-improved 6. Hypertension by history 7. Pulmonary nodules of unknown certain etiology-possibly related to a primary renal cell malignancy 8. oral thrush 9. 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 tobaccoism counseled to discontinue discharge today Reason Hospital Visit/Course this is a 61-year-old white male who began having a sore throat yesterday. He presented to the emergency room today with complaints of inability to breathe and inability to swallow. He notes he had night sweats last night but has not had antecedent to this time. He also is being worked up for a left kidney mass uncertain etiology, that was found incidentally on an MRI of the thoracic spine. He does have some pulmonary nodules as well. He had been coughing up some blood this morning. He was hospitalized with a similar episode of tonsillitis approximately 6 years ago. He denies having any hematuria. Discharge Summary Procedures CT neck chest abdomen pelvis Consultations Dr. Dima Mcneil Discharge Physical Examination Allergies: Coded Allergies: meperidine (Verified Allergy, Unknown, RASH, 11/02/16) Vitals & I&Os Vital Signs Date Time Temp Pulse Resp B/P (MAP) Pulse Ox O2 Delivery O2 Flow Rate FiO2 11/04/16 07:43 97.9 78 18 156/82 93 11/02/16 14:29 Room Air General Appearance: Alert, Oriented X3 HEENT: Other (adenopathy right side neck) Respiratory: Clear to Auscultation, Other (scattered rhonchi) Cardiovascular: Regular Rate Abdominal: Normal Bowel Sounds Skin: No Rashes Neuro: Normal Gait, Normal Speech, Strength at 5/5 X4 Ext Hospital Course the patient was admitted for IV antibiotics secondary to his inability to swallow. CT neck showed no evidence of an abscess. Patient was seen in consultation by Dr. Francis who agreed with the choices of antibiotics and recommended follow up with him in about a month. Incidentally noted was a left renal mass. Patient had had some awareness of this and has not yet seen an oncologist. As such Dr. Mcneil saw him in consultation and recommended further testing for possibility of metastatic renal cell carcinoma. Case was discussed with Dr. Haley who will see him the day after discharge in his office. At the time of discharge the patient is eating and swallow swallowing normally. He is feeling much better. His metformin has been held secondary to the IV contrast use. His blood sugars have been followed closely. Labs (last 24 hrs) Laboratory Tests 11/03/16 14:12: Glucometer 275H 11/03/16 20:16: Glucometer 157H 11/03/16 21:16: Glucometer 145H 11/04/16 06:20: Glucometer 71 11/04/16 09:36: Glucometer 158H Microbiology 11/02/16 Blood Culture - Preliminary, Resulted No growth 11/02/16 Throat Culture - Preliminary, Resulted No Beta Strep isolated 11/02/16 Urine Culture - Preliminary, Resulted Pending Labs Laboratory Tests 11/04/16 06:20: Glucometer 71 11/04/16 09:36: Glucometer 158 Discharge Home Medications: Active Scripts Active Cefuroxime (Cefuroxime Axetil) 500 Mg Tablet 500 Mg PO BID Reported Lantus Solostar (Insulin Glargine,Hum.rec.anlog) 100 Unit/1 Ml Insuln.pen 20 Units SC HS Vitamin C (Ascorbic Acid) 500 Mg Tablet 500 Mg PO DAILY Vitamin D3 (Cholecalciferol (Vitamin D3)) 2,000 Unit Capsule 4,000 Unit PO DAILY Lutein 20 Mg Tablet 40 Mg PO DAILY Vitamin E Beauty Oil (Flako AC/Safflower Oil) 52 Ml Oil TP BID APPLY TO KNEES Prinivil (Lisinopril) 20 Mg Tablet 20 Mg PO DAILY Glimepiride 4 Mg Tablet 4 Mg PO BID Colestipol Hcl (Colestipol Hcl,Micronized) 1 Gm Tablet 2 Gm PO BID TAKES 2 (1GM) TABLET Condition at discharge stable Instructions to patient/family Please see electonic discharge instructions given to patient. Clinical Quality Measures DVT/VTE Risk/Contraindication: Risk Factor Score Per Nursin RFS Level Per Nursing on Admit: 4+=Very High Smoking Cessation Counseling: Counseling-Symptomatic: 3-10 Minutes Discussed Options Including: Nicotine Patch Copy Copies To 1: AMINAH MOELLER MD Copies To 2: MELVIN HALEY MD, KATHLEEN M MD Nov 04, 2016 11:45
[2016-11-04] MEDS: ENOXAPARIN 40 MG/0.4 ML (LOVENOX) SYR SC SCH (12:21)
[2016-11-04] MEDS: AZITHROMYCIN 500 MG/NS 250 ML IVPB IV SCH ×2 (12:21)
--- NOTE | 2016-11-05 07:07 | CONSULTATION REPORT ---
DATE OF SERVICE: 11/04/2016 ATTENDING PHYSICIAN: Dr. Jones. SUMMARY: After reviewing the patient's records, x-rays, interviewing him and examining him, this is a 61-year-old white man who was found to have a large left renal cell mass lobulated 10 x 12 cm, highly suspicious for renal cell carcinoma. He also was found to have some nodules in the right lung and some lymphadenopathy in that area. There is no retroperitoneal lymphadenopathy and no involvement of the blood vessels by CT. He also had 2 weeks ago, a bone scan by orthopedics that did not reveal any evidence of metastatic disease. The patient denies any voiding symptoms and denies any hematuria previously. REVIEW OF SYSTEMS: He was admitted for pharyngitis and possible sepsis. His throat is getting better. He does have chronic bronchitis and chronic diarrhea. ALLERGIES: He is allergic to DEMEROL. SOCIAL HISTORY: Social life, he is single. No children. Smokes a pack of cigarettes a day. No alcohol. No drugs. MEDICAL ILLNESSES: Admits to insulin-dependent diabetes mellitus, hypertension and osteoarthritis. MEDICATIONS: He is on lisinopril 20 mg daily, Amaryl 4 mg daily, Lantus 20 mg every evening, Aleve 2 a day and colestipol 1 gram b.i.d. PAST SURGICAL HISTORY: Had bilateral total knee replacements, cholecystectomy, a BMT, inguinal hernia repair, carpal tunnel repair and cataract extractions. PHYSICAL EXAMINATION: VITAL SIGNS: Per chart. GENERAL: Well-nourished, well-developed, in no acute distress in my examination. HEENT: The head is normocephalic. ENT unremarkable. NECK: Supple. No bruits. CHEST: Clear, nontender. HEART: Regular rate and rhythm. ABDOMEN: Soft, nontender. EXTREMITIES: Lower extremity, no edema or cyanosis. NEUROLOGIC: Grossly intact, oriented x3. RECTAL: Deferred. IMPRESSION: 1. Left renal mass, highly suspicious of renal cell carcinoma, stage 3-4. 2. Insulin dependent diabetes mellitus. 3. Hypertension. 4. Osteoarthritis. 5. Chronic bronchitis. 6. Chronic diarrhea. PLAN: We will see the patient at the office on . We will refer him to [facility] renal cancer specialist. I doubt they can do it robotically or laparoscopically and we will arrange him to see them there and proceed with the necessary procedure. This was fully explained to the patient. Job ID: [id number] DocumentID: [id number] Dictated Date: 11/04/2016 12:43:18 Contracts Attorney Date: 11/04/2016 15:03:58 Dictated By: MELVIN HALEY MD
== END 2016-11-04 13:45 | disposition home or self-care (01) | DRG 872 ==
LOC: EDUNIT# 06:44 → ER 06:47 → 4TH 11:12 → ENPENDDIS 11-04 12:00
PROVIDERS: ADMIT Internal Medicine; ATTEND Internal Medicine
DX: A41.9 Sepsis, unspecified organism (principal); J02.9 Acute pharyngitis, unspecified; J03.90 Acute tonsillitis, unspecified; R59.1 Generalized enlarged lymph nodes; B37.0 Candidal stomatitis; N28.89 Other specified disorders of kidney and ureter; K91.5 Postcholecystectomy syndrome; E11.9 Type 2 diabetes mellitus without complications; Z79.4 Long term (current) use of insulin; H10.9 Unspecified conjunctivitis; I10 Essential (primary) hypertension; R91.8 Other nonspecific abnormal finding of lung field; F17.210 Nicotine dependence, cigarettes, uncomplicated; Z79.84 Long term (current) use of oral hypoglycemic drugs; M19.90 Unspecified osteoarthritis, unspecified site; J42 Unspecified chronic bronchitis
CPT/HCPCS: 36415; 70491; 71020; 71260; 74178; 80053; 81000; 82962; 83605; 85007; 85025; 85027; 85610; 85730; 86141; 87040; 87088; 87430

== ENCOUNTER 2016-11-09 07:56 | Outpatient (RCR) | payer BC ==
[~2016-11-09 07:56] MED LIST changes: +CEFU500T63 PO; +FERR-84 PO; +INSU100I10 SC
== END 2017-02-07 | disposition home or self-care (01) ==
LOC: ONC 07:56
PROVIDERS: ATTEND Internal Medicine Hematology & Oncology
DX: C64.2 Malignant neoplasm of left kidney, except renal pelvis (principal); R91.1 Solitary pulmonary nodule; E11.9 Type 2 diabetes mellitus without complications; I10 Essential (primary) hypertension; F17.210 Nicotine dependence, cigarettes, uncomplicated; Z79.4 Long term (current) use of insulin; Z79.899 Other long term (current) drug therapy
CPT/HCPCS: 99213

== ENCOUNTER → 2016-12-19 | Outpatient (CLI) | payer BC ==
[~2016-12-19] MED LIST changes: +CATHETER FLUSH 10 ML SYR IV PRN; +IOHEXOL 350 MG/ML 100 ML (OMNIPAQUE 350) VIAL IV ONE; +NS 100 ML (IVPB) BAG IV ONE
--- NOTE | 2016-12-19 18:07 | Diagnostic Imaging Report ---
PROCEDURE: CT chest with and without contrast. TECHNIQUE: Multiple contiguous axial images were obtained through the chest before and after administration of intravenous contrast. INDICATION: Renal mass. 75 mL of Omnipaque 350 is administered intravenously. FINDINGS: There is paraseptal emphysema seen in the upper lobes. There are multiple pulmonary nodules up to 1.3 cm in size within the right lower lobe and other subcentimeter nodules are also seen mostly in the right lower lobe and right middle lobe. This is concerning for metastatic disease. No appreciable significant difference from 11/02/2016 exam is noted in the lower lobes nodules. The right upper lobe demonstrates an 8 mm nodule which appears to be slightly enlarged compared to 11/02/2016. There is no significant consolidation. The heart size is normal. There is a small to moderate size hiatal hernia. No pleural or pericardial effusion. There is a precarinal lymph node measuring 1.3 cm in size slightly larger compared to the prior exam. An infracarinal lymph node measuring 1.1 cm is stable. No axillary lymphadenopathy is seen. The osseous structures demonstrate scoliosis and degenerative changes. No suspicious mass with bone destruction seen. The left kidney demonstrates an enhancing lobulated large mass measuring 10.3 x 8 cm suggestive of renal cell carcinoma. The unenhanced phase demonstrates no suspicious calcifications. IMPRESSION: CT CHEST: 1. There are multiple pulmonary nodules mostly in the right lung up to 1.3 cm in size suggestive of metastasis. 2. Mildly enlarged mediastinal lymph nodes up to 1.2 cm in the precarinal region, slightly larger compared to 11/02/2016 exam also concerning for metastasis. 3. Large left renal mass consistent with renal cell carcinoma. Dictated by: Dictated on workstation # [id number]
== END ==
LOC: RAD 15:21
PROVIDERS: ATTEND Urology
DX: N28.89 Other specified disorders of kidney and ureter (principal); R91.8 Other nonspecific abnormal finding of lung field
CPT/HCPCS: 71270

== ENCOUNTER → 2017-03-07 | Outpatient (CLI) | payer BC ==
--- NOTE | 2017-03-07 16:59 | Diagnostic Imaging Report ---
PROCEDURE: CT chest with contrast only. TECHNIQUE: Multiple contiguous axial images were obtained through the chest after administration of intravenous contrast. INDICATION: Renal cancer. 75 mL of Omnipaque 350 is administered intravenously. COMPARISON: 12/19/2016. FINDINGS: There is interval enlargement of a nodule in the anterior aspect of the left lung base measuring now 1.3 cm compared to 3 mm on the previous exam. There are multiple other nodules that demonstrate minimal enlargement which are mostly subcentimeter in size with a few new nodules suggested in the left lung. In the right lung, the largest previously seen nodule measuring 1.3 cm is minimally smaller at 1.1 cm at this time. The mediastinum demonstrates mildly enlarged lymph nodes such as a right paratracheal 1.4 cm node and an infracarinal node measuring 1.1 cm. Minimally prominent hilar lymph nodes less than a centimeter in size are seen. No axillary lymphadenopathy is noted. The thoracic aorta is normal in caliber. The heart size is normal. There is a moderate-sized paraesophageal hiatal hernia. Sections in the upper abdomen demonstrate suggestion of left nephrectomy, and cholecystectomy clips are seen. The left adrenal gland is also probably resected. The right adrenal gland appears unremarkable. The osseous structures demonstrate mild scoliotic curvature and degenerative changes. IMPRESSION: There are numerous pulmonary metastases mostly less than a centimeter in size with generally stable to mild enlargement compared to 12/19/2016 exam. While there is significant enlargement in the dominant left lower lobe nodule, the dominant nodule in the right lower lobe measuring 1.1 cm is slightly smaller compared to prior measurements of 1.3 cm. Dictated by: Dictated on workstation # [id number]
== END ==
LOC: RAD 15:52
PROVIDERS: ATTEND Internal Medicine Hematology & Oncology
DX: C64.2 Malignant neoplasm of left kidney, except renal pelvis (principal); C78.00 Secondary malignant neoplasm of unspecified lung; R91.8 Other nonspecific abnormal finding of lung field; Z90.5 Acquired absence of kidney; Z90.49 Acquired absence of other specified parts of digestive tract
CPT/HCPCS: 71260

== ENCOUNTER 2017-06-25 06:52 | Emergency (ER) | payer BC ==
[~2017-06-25] VITALS: Ht 193 cm; Wt 93.9 kg
[~2017-06-25 06:52] MED LIST changes: +CALC-676 PO; -CATHETER FLUSH 10 ML SYR IV PRN; +FERR325T24 PO; +GABA-488 PO; +HYDR-3820 PO; -IOHEXOL 350 MG/ML 100 ML (OMNIPAQUE 350) VIAL IV ONE; +KRIL1CAP18 PO; +LISI-552 PO; +MAGN400T39 PO; +METF500T4 PO; -NS 100 ML (IVPB) BAG IV ONE; +ONDA8TAB13 PO
[2017-06-25] MEDS ORDERED: DEXTROSE 50% 50 ML (IMS) SYR ONE (06:57)
--- OUTSIDE RECORDS SUMMARY | 2017-06-25 06:58 | XMS REPORT | Continuity of Care Document ---
Author Author [employer] Organization [facility] Address Unknown Phone Unavailable Care Team Providers Care Tree Driller Name Role Phone [employer] Unavailable Unavailable Problems Medications Allergies, Adverse Reactions, Alerts Immunizations Results Vital Signs Encounters Location Location Details Encounter Type Encounter Number Reason For Visit Attending Provider ADM Date DC Date Status Source OUTPATIENT [id number] VIOLET DOE 02/05/2017 02/05/2017 Active [facility] CA SERIES [id number] BEREKET MARTINEZ 03/01/2017 03/01/2017 Active [facility] OUTPATIENT [id number] VIOLET DOE 06/07/2017 06/07/2017 Active [facility] O VIOLET DOE 06/07/2017 06/07/2017 Active [facility] Procedures Plan of Care Social History Assessment and Plan Family History Advance Directives Functional Status
--- OUTSIDE RECORDS SUMMARY | 2017-06-25 06:59 | XMS REPORT | Encounter Summary ---
Author Author [facility] Organization [facility] Address Unknown Phone Unavailable Care Team Providers Care Vertica Architect Name Role Phone PCP Unavailable Encounter Details Date Type Department Care Team Description 02/05/2017 Procedure Pass [facility] Radiology [address] [place] [address] Social History Tobacco Use Types Packs/Day Years Used Date Current Every Day Smoker Cigarettes 1 50 Smokeless Tobacco: Never Used Alcohol Use Drinks/Week oz/Week Comments No Sex Assigned at Date Recorded Not on file as of this encounter Functional Status Functional Status Response Date of Assessment Does the patient have a hearing impairment: No 01/11/2017 as of this encounter Plan of Treatment Not on fileas of this encounter Visit Diagnoses Not on filein this encounter
--- OUTSIDE RECORDS SUMMARY | 2017-06-25 06:59 | XMS REPORT | Encounter Summary ---
Author Author [facility] Organization [facility] Address Unknown Phone Unavailable Care Team Providers Care Shipbuilding Draftsperson Name Role Phone PCP Unavailable Reason for Visit * Reason Comments Cancer Encounter Details Date Type Department Care Team Description 06/07/2017 Office Visit [facility] Ryan Burton MD Renal cell carcinoma of Physicians - Urology [address] left kidney (HCC) 2ND FLOOR POD A [place] [address] [address] OFFICE BLDG [phone] [place] [address] Social History Tobacco Use Types Packs/Day Years Used Date Current Every Day Smoker Cigarettes 1 50 Smokeless Tobacco: Never Used Alcohol Use Drinks/Week oz/Week Comments No Sex Assigned at Date Recorded Not on file as of this encounter Last Filed Vital Signs Vital Sign Reading Time Taken Blood Pressure 143/70 06/07/2017 10:49 AM MATERIAL REQUIREMENTS WORKER Pulse 70 06/07/2017 10:49 AM MATERIAL REQUIREMENTS WORKER Temperature - - Respiratory Rate - - Oxygen Saturation - - Inhaled Oxygen - - Concentration Weight 94.3 kg (208 lb) 06/07/2017 10:49 AM MATERIAL REQUIREMENTS WORKER Height 193 cm (6' 4") 06/07/2017 10:49 AM MATERIAL REQUIREMENTS WORKER Body Mass Index 25.32 06/07/2017 10:49 AM MATERIAL REQUIREMENTS WORKER in this encounter Functional Status Functional Status Response Date of Assessment Does the patient have a hearing impairment: No 01/11/2017 as of this encounter Progress Notes * Ryan Burton MD - 06/07/2017 10:30 AM MATERIAL REQUIREMENTS WORKER Formatting of this note may be different from the original. Date of Service: 06/07/2017 Subjective: History of Present Illness Paul Mejía is a 61 y.o. 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 Margins negative. 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 His left renal mass was incidentally found on spine MRI September 2016 done due to low back and leg pain. Scans at that time showed a [id number] mass. 1.1 cm right lower lobe lung nodule also noted at that time along with slightly enlarged right hilar and infracarinal lymph nodes. He was asymptomatic at presentation. He has a 50 pack-year history of smoking. Since his surgery he has followed up at [facility] medical oncology with Dr. Amor and ultimately decided to follow up with medical oncology at [facility] in [place], [place]. They have surveiled him with CT scans which determined multiple lung nodules with interval growth and he has been prescribed Pazopanib which he is scheduled to start soon. He has continued to do well post operatively, no pain or hernias at site of surgery. No flank pain, hematuria, weight loss. Review of Systems Constitutional: Negative for activity change, appetite change, chills, diaphoresis, fatigue, fever and unexpected weight change. HENT: Negative for congestion, hearing loss, mouth sores and sinus pressure. Eyes: Negative for visual disturbance. Respiratory: Positive for cough, shortness of breath and wheezing. Negative for apnea and chest tightness. Cardiovascular: Negative for chest pain, palpitations and leg swelling. Gastrointestinal: Negative for abdominal distention, abdominal pain, blood in stool, constipation, nausea and vomiting. Genitourinary: Negative for decreased urine volume, difficulty urinating, discharge, dysuria, enuresis, flank pain, frequency, genital sores, hematuria, penile pain, penile swelling, scrotal swelling, testicular pain and urgency. Musculoskeletal: Negative for arthralgias, back pain, gait problem and myalgias. Skin: Negative for rash and wound. Neurological: Negative for dizziness, tremors, seizures, syncope, weakness, light-headedness, numbness and headaches. Hematological: Negative for adenopathy. Does not bruise/bleed easily. Psychiatric/Behavioral: Negative for decreased concentration and dysphoric mood. The patient is not nervous/anxious. Objective: calcium carbonate/vitamin D-3 (OSCAL-500+D) 1250 mg/200 unit tablet Take 2 Tabs by mouth daily. Calcium Carb 1250mg delivers 500mg elemental Ca cholecalciferol (VITAMIN D-3) 1,000 units tablet Take 1,000 Units by mouth daily. colestipol (COLESTID) 1 gram tablet Take 2 g by mouth twice daily. GABAPENTIN (BULK) MISC Use as directed. GINKGO BILOBA (GINKOBA PO) Take 2 Tabs by mouth daily. glimepiride (AMARYL) 4 mg tablet Take 4 mg by mouth twice daily with meals. insulin glargine (LANTUS SOLOSTAR) 100 unit/mL (3 mL) injection PEN Inject 20 Units under the skin at bedtime daily. Nxeca-MX0-JLP-[id number]-ZZ5-Hod-Astx (KRILL OIL) 1000-130(40-80) mg cap Take 1 Cap by mouth daily. lisinopril (PRINIVIL; ZESTRIL) 20 mg tablet Take 20 mg by mouth daily. Lutein 20 mg cap Take 1 Cap by mouth daily. Magnesium 250 mg tab Take 250 mg by mouth daily. metFORMIN (GLUCOPHAGE) 500 mg tablet Take 500 mg by mouth twice daily with meals. naproxen sodium(+) (ALEVE) 220 mg tablet Take 2 Tabs by mouth twice daily. Take with food. other medication 1 Dose. Focus factor 1 capsule daily. oxyCODONE/acetaminophen (ENDOCET) 5/325 mg tablet Take 1 tablet by mouth every 4 hours as needed for Pain Earliest Fill Date: 01/13/17 pazopanib (VOTRIENT) 200 mg tablet Take 800 mg by mouth daily. Take on an empty stomach, at least 1 hour before and 2 hours after food. Potassium 99 mg tab Take 1 Tab by mouth daily. senna/docusate (SENOKOT-S) 8.6/50 mg tablet Take 1 tablet by mouth daily. turmeric root extract 500 mg cap Take 1 Cap by mouth twice daily. vitamins, B complex tab Take 1 Tab by mouth daily. Vitals: 06/07/17 1049 BP: 143/70 Pulse: 70 Weight: 94.3 kg (208 lb) Height: 193 cm (76") Body mass index is 25.32 kg/(m^2). Physical Exam Constitutional: He is oriented to person, place, and time. He appears well- developed and well-nourished. No distress. HENT: Head: Normocephalic and atraumatic. Eyes: EOM are normal. Right eye exhibits no discharge. Left eye exhibits no discharge. Neck: Normal range of motion. No JVD present. Cardiovascular: Normal rate and regular rhythm. Pulmonary/Chest: Effort normal and breath sounds normal. No stridor. No respiratory distress. He has no wheezes. Abdominal: Soft. He exhibits no distension. There is no tenderness. Left lateral subcostal incisional scar without hernia Musculoskeletal: Normal range of motion. He exhibits no edema. Neurological: He is alert and oriented to person, place, and time. Coordination normal. Skin: Skin is warm. He is not diaphoretic. No erythema. No pallor. Psychiatric: He has a normal mood and affect. His behavior is normal. Judgment and thought content normal. Assessment and Plan: Problem Renal Cell Cancer (Hcc) Incidentally detected on spine MRI September 2016. [id number] mass. 1.1cm right lower lobe lung nodule along with slightly enlarged right hilar and infracarinal lymph nodes. Asymptomatic. 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 Margins negative. 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 06/07/17: Large left lower lobe lung nodule biopsied as RCC by medical oncology at [facility] and is scheduled to start Pazopanib soon. Renal cell cancer (HCC) 61 year old male s/p radical left nephrectomy 01/10/17 final pathology [id number] clear cell renal cell carcinoma with current biopsy proven lung metastases. Plan: - Await official read on CT today - If single pulmonary nodule may consider referral to CTS for wedge resection evaluation in addition to current TKI plan - If multiple nodules/sites of likely metastatic disease agree TKI first line therapy most appropriate - Will call patient with plan of care update once radiology read completed Patient seen and discussed with Dr. Burton, who directed plan of care. Alfonso Mallory MD Urology PGY1 Patient seen and examined. Pertinent radiology and laboratory reviewed. I agree with the resident's note and plan. CT scan shows multiple pulm nodules so he will proceed with TKI with Dr. Mcneil at [facility]. Ryan Burton MD in this encounter Miscellaneous Notes * Assessment & Plan Note - Alfonso Mallory MD - 06/07/2017 11:49 AM MATERIAL REQUIREMENTS WORKER Associated Problem(s): Renal cell cancer (HCC) 61 year old male s/p radical left nephrectomy 01/10/17 final pathology [id number] clear cell renal cell carcinoma with current biopsy proven lung metastases. Plan: - Await official read on CT today - If single pulmonary nodule may consider referral to CTS for wedge resection evaluation in addition to current TKI plan - If multiple nodules/sites of likely metastatic disease agree TKI first line therapy most appropriate - Will call patient with plan of care update once radiology read completed in this encounter Plan of Treatment Not on fileas of this encounter Visit Diagnoses Diagnosis Renal cell carcinoma of left kidney (HCC) in this encounter
--- OUTSIDE RECORDS SUMMARY | 2017-06-25 06:59 | XMS REPORT | Clinical Summary ---
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 If you do not see the information that you expected, contact Release of Information in the Health Information Management department at [phone] for further assistance in locating additional records.[facility] Allergies No Known Allergies Current Medications Prescription Sig. Disp. Refills Start End Date Status Date glimepiride (AMARYL) 4 mg Take 4 mg by mouth twice Active tablet daily with meals. colestipol (COLESTID) 1 Take 2 g by mouth twice Active gram tablet daily. vitamins, B complex tab Take 1 Tab by mouth Active daily. cholecalciferol (VITAMIN Take 1,000 Units by mouth Active D-3) 1,000 units tablet daily. GINKGO BILOBA (GINKOBA Take 2 Tabs by mouth Active PO) daily. metFORMIN (GLUCOPHAGE) Take 500 mg by mouth Active 500 mg tablet twice daily with meals. insulin glargine (LANTUS Inject 20 Units under the Active SOLOSTAR) 100 unit/mL (3 skin at bedtime daily. mL) injection PEN lisinopril (PRINIVIL; Take 20 mg by mouth Active ZESTRIL) 20 mg tablet daily. naproxen sodium(+) Take 2 Tabs by mouth Active (ALEVE) 220 mg tablet twice daily. Take with food. calcium carbonate/vitamin Take 2 Tabs by mouth Active D-3 (OSCAL-500+D) 1250 daily. Calcium Carb mg/200 unit tablet 1250mg delivers 500mg elemental Ca other medication 1 Dose. Focus factor 1 Active capsule daily. [id number]-Lip Take 1 Cap by mouth Active -Astx (KRILL OIL) daily. 1000-130(40-80) mg cap Lutein 20 mg cap Take 1 Cap by mouth Active daily. Potassium 99 mg tab Take 1 Tab by mouth Active daily. turmeric root extract 500 Take 1 Cap by mouth twice Active mg cap daily. Magnesium 250 mg tab Take 250 mg by mouth Active daily. oxyCODONE/acetaminophen Take 1 tablet by mouth 40 tablet 0 01/14/20 Active (ENDOCET) 5/325 mg tablet every 4 hours as needed 17 for Pain Earliest Fill Date: 01/13/17 senna/docusate Take 1 tablet by mouth 15 tablet 0 01/14/20 Active (SENOKOT-S) 8.6/50 mg daily. 17 tablet GABAPENTIN (BULK) MISC Use as directed. Active pazopanib (VOTRIENT) 200 Take 800 mg by mouth Active mg tablet daily. Take on an empty stomach, at least 1 hour before and 2 hours after food. Active Problems Problem Noted Date Renal cell cancer (HCC) 12/11/2016 Overview: Incidentally detected on spine MRI September 2016. [id number] mass. 1.1cm right lower lobe lung nodule along with slightly enlarged right hilar and infracarinal lymph nodes. Asymptomatic. 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 Margins negative. 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 06/07/17: Large left lower lobe lung nodule biopsied as RCC by medical oncology at [facility] and is scheduled to start Pazopanib soon. L ast Assessment & Plan: 61 year old male s/p radical left nephrectomy 01/10/17 final pathology [id number] clear cell renal cell carcinoma with current [...] of care update once radiology read completed Encounters Date Type Specialty Care Team Description 06/07/2017 Office Visit Urology Ryan Burton MD Renal cell carcinoma of left kidney (HCC) 06/07/2017 [facility] Radiology Ryan Burton MD Encounter 04/11/2017 Documentation Oncology Dick Amor MD 02/05/2017 Procedure Pass Radiology 02/05/2017 Procedure Pass Radiology from Last 3 Months Family History Medical History Relation Name Comments Diabetes Father Hypertension Father Diabetes Mother Hypertension Mother Diabetes Other Hypertension Other Relation Name Status Comments Father Mother Alive Other Social History Tobacco Use Types Packs/Day Years Used Date Current Every Day Smoker Cigarettes 1 50 Smokeless Tobacco: Never Used Tobacco Cessation: Ready to Quit: Yes Alcohol Use Drinks/Week oz/Week Comments No Sex Assigned at Date Recorded Not on file Last Filed Vital Signs Vital Sign Reading Time Taken Blood Pressure 143/70 06/07/2017 10:49 AM [facility] Pulse 70 06/07/2017 10:49 AM [facility] Temperature 36.9 C (98.4 F) 03/01/2017 12:20 PM CDT Respiratory Rate 18 03/01/2017 12:20 PM CDT Oxygen Saturation 94% 03/01/2017 12:20 PM CDT Inhaled Oxygen - - Concentration Weight 94.3 kg (208 lb) 06/07/2017 10:49 AM [facility] Height 193 cm (6' 4") 06/07/2017 10:49 AM MANA[facility] Body Mass Index 25.32 06/07/2017 10:49 AM MANAGER [facility] Plan of Treatment Health Maintenance Due Date Last Done Comments HEPATITIS C SCREENING 1955 PHYSICAL (COMPREHENSIVE) 1962 EXAM PERTUSSIS VACCINE 1966 TETANUS VACCINE 1972 COLORECTAL CANCER 2005 SCREENING SHINGLES VACCINE 2015 INFLUENZA VACCINE 01/01/2017 Results * CT ABD/PELV W CONTRAST (06/07/2017 10:11 AM) Specimen Performing Laboratory [facility] RAD RESULTS Impressions CHEST: 1. Bilateral pulmonary nodules, compatible with metastatic disease. 2.Mild mediastinal and hilar adenopathy.This likely represents metastatic disease. 3. Mild centrilobular and paraseptal emphysema. 4. Moderate hiatal hernia. ABDOMEN AND PELVIS: 1. Interval left radical nephrectomy without recurrent or residual nodule in the left renal fossa. 2.No abdominopelvic lymphadenopathy or metastatic disease. 3. Moderate distal colonic diverticulosis. Approved by Kashmir Guerrier M.D. on 06/07/2017 12:08 PM By my electronic signature, I attest that I have personally reviewed the images for this examination and formulated the interpretations and opinions expressed in this report Finalized by Baudilio Mckee M.D. on 06/07/2017 12:13 PM. Dictated by Kashmir Guerrier M.D. on 06/07/2017 11:[address] CHEST, ABDOMEN AND PELVIS Clinical Indication:Male, 61 years old. Renal cancer, unspecified laterality Technique: Multiple contiguous axial images were obtained through the chest, abdomen and pelvis following the administration of IV contrast material. Post processing coronal and sagittal reconstruction images were made from the axial images. IV contrast: Isovue-370 Bowel contrast:None Comparison: CT abdomen pelvis dated 11/02/2016. CHEST FINDINGS: Lower Neck: Unremarkable Axilla, Mediastinum and Jocelynn: There are a few mildly enlarged lymph nodes in the mediastinum and bilateral jocelynn, some of which contain punctate calcifications. A reference subcarinal lymph node measures 2.3 x 1.1 cm on series 6 image 34. There is a moderate hiatal hernia. There is no axillary lymphadenopathy. Heart and Great Vessels: The heart is normal in size without pericardial effusion. The thoracic aorta is normal in caliber and contains mild mixed atherosclerotic plaque. There is incidental arch origin of the left vertebral artery. The central pulmonary arteries are patent. At least mild calcified coronary artery disease. Airway, Lungs and Pleura: The trachea and central airways are patent. There is mild paraseptal and centrilobular emphysema. There are several (greater than 20 ) scattered nodules in both lungs. A sales representative uniforms left upper lobe nodule measures 2.3 cm on series 6 image 48. A few of the nodules particularly within the right lower lobe have decreased in size since the outside study dated 2016, though at least one has developed (series 6 image 50). There is no pleural effusion or pneumothorax. Chest Wall and Osseous Structures: There is mild left convexity scoliosis of the upper thoracic spine and right convexity scoliosis of the lower thoracic spine. No destructive osseous lesion. There is a small subcutaneous low-density nodule in the right anterior chest wall which likely represents a small sebaceous cyst. There is mild symmetric bilateral gynecomastia. ABDOMEN AND PELVIS FINDINGS: Liver and Biliary system: The liver is normal in size. There is mild pneumobilia in the left lobe liver. There is no discrete liver lesion. The major portal veins are patent. Previous cholecystectomy. Spleen: Unremarkable. Adrenal Glands and Kidneys: There has been interval radical left nephrectomy. No discrete nodule in the operative bed is seen. There is an unchanged nodularity of the right adrenal gland. Normal right kidney without hydronephrosis or nephrolithiasis. Pancreas and Retroperitoneum: No hyperenhancing pancreatic lesion is seen. There is is unchanged 1.0 cm low-density lesion in the body of the pancreas since 11/02/2016 (series 5 image 221). A few mildly prominent retroperitoneal lymph nodes are seen, for example on series 7 image 29, which may be reactive. Aorta and Major Vessels: The abdominal aorta and iliac vessels are normal in caliber and contain moderate predominantly calcified atherosclerotic plaque. Bowel, Mesentery and Peritoneal space: The small and large bowel loops are normal in caliber. There is moderate distal colonic diverticulosis without evidence of diverticulitis. The appendix is normal. There is no mesenteric lymphadenopathy or fluid collection. Pelvis: The urinary bladder is mildly distended. The prostate and seminal vesicles are unremarkable. No pelvic lymphadenopathy. Abdominal wall and Osseous Structures: There is multilevel lumbar spondylosis and generalized bony demineralization. No destructive osseous lesion is seen. There is mild left convexity scoliosis of the lumbar spine. There is mild soft tissue thickening in the left anterior abdominal wall, likely from prior laparotomy. Procedure Note Interface, Radiant Results - 06/07/2017 12:[address] CHEST, ABDOMEN AND PELVIS Clinical Indication: Male, 61 years old. Renal cancer, unspecified laterality Technique: Multiple contiguous axial images were obtained through the chest, abdomen and pelvis following the administration of IV contrast material. Post processing coronal and sagittal reconstruction images were made from the axial images. IV contrast: Isovue-370 Bowel contrast: None Comparison: CT abdomen pelvis dated 11/02/2016. CHEST FINDINGS: Lower Neck: Unremarkable Axilla, Mediastinum and Jocelynn: There are a few mildly enlarged lymph nodes in the mediastinum and bilateral jocelynn, some of which contain punctate calcifications. A reference subcarinal lymph node measures 2.3 x 1.1 cm on series 6 image 34. There is a moderate hiatal hernia. There is no axillary lymphadenopathy. Heart and Great Vessels: The heart is normal in size without pericardial effusion. The thoracic aorta is normal in caliber and contains mild mixed atherosclerotic plaque. There is incidental arch origin of the left vertebral artery. The central pulmonary arteries are patent. At least mild calcified coronary artery disease. Airway, Lungs and Pleura: The trachea and central airways are patent. There is mild paraseptal and centrilobular emphysema. There are several (greater than 20 ) scattered nodules in both lungs. A sales representative uniforms left upper lobe nodule measures 2.3 cm on series 6 image 48. A few of the nodules particularly within the right lower lobe have decreased in size since the outside study dated 2016, though at least one has developed (series 6 image 50). There is no pleural effusion or pneumothorax. Chest Wall and Osseous Structures: There is mild left convexity scoliosis of the upper thoracic spine and right convexity scoliosis of the lower thoracic spine. No destructive osseous lesion. There is a small subcutaneous low-density nodule in the right anterior chest wall which likely represents a small sebaceous cyst. There is mild symmetric bilateral gynecomastia. ABDOMEN AND PELVIS FINDINGS: Liver and Biliary system: The liver is normal in size. There is mild pneumobilia in the left lobe liver. There is no discrete liver lesion. The major portal veins are patent. Previous cholecystectomy. Spleen: Unremarkable. Adrenal Glands and Kidneys: There has been interval radical left nephrectomy. No discrete nodule in the operative bed is seen. There is an unchanged nodularity of the right adrenal gland. Normal right kidney without hydronephrosis or nephrolithiasis. Pancreas and Retroperitoneum: No hyperenhancing pancreatic lesion is seen. There is is unchanged 1.0 cm low-density lesion in the body of the pancreas since 11/02/2016 (series 5 image 221). A few mildly prominent retroperitoneal lymph nodes are seen, for example on series 7 image 29, which may be reactive. Aorta and Major Vessels: The abdominal aorta and iliac vessels are normal in caliber and contain moderate predominantly calcified atherosclerotic plaque. Bowel, Mesentery and Peritoneal space: The small and large bowel loops are normal in caliber. There is moderate distal colonic diverticulosis without evidence of diverticulitis. The appendix is normal. There is no mesenteric lymphadenopathy or fluid collection. Pelvis: The urinary bladder is mildly distended. The prostate and seminal vesicles are unremarkable. No pelvic lymphadenopathy. Abdominal wall and Osseous Structures: There is multilevel lumbar spondylosis and generalized bony demineralization. No destructive osseous lesion is seen. There is mild left convexity scoliosis of the lumbar spine. There is mild soft tissue thickening in the left anterior abdominal wall, likely from prior laparotomy. IMPRESSION CHEST: 1. Bilateral pulmonary nodules, compatible with metastatic disease. 2. Mild mediastinal and hilar adenopathy. This likely represents metastatic disease. 3. Mild centrilobular and paraseptal emphysema. 4. Moderate hiatal hernia. ABDOMEN AND PELVIS: 1. Interval left radical nephrectomy without recurrent or residual nodule in the left renal fossa. 2. No abdominopelvic lymphadenopathy or metastatic disease. 3. Moderate distal colonic diverticulosis. Approved by Kashmir Guerrier M.D. on 06/07/2017 12:08 PM By my electronic signature, I attest that I have personally reviewed the images for this examination and formulated the interpretations and opinions expressed in this report Finalized by Baudilio Mckee M.D. on 06/07/2017 12:13 PM. Dictated by Kashmir Guerrier M.D. on 06/07/2017 11:07 AM. * CT CHEST W CONTRAST (06/07/2017 10:11 AM) Specimen Performing Laboratory [facility] RAD RESULTS Impressions CHEST: 1. Bilateral pulmonary nodules, compatible with metastatic disease. 2.Mild mediastinal and hilar adenopathy.This likely represents metastatic disease. 3. Mild centrilobular and paraseptal emphysema. 4. Moderate hiatal hernia. ABDOMEN AND PELVIS: 1. Interval left radical nephrectomy without recurrent or residual nodule in the left renal fossa. 2.No abdominopelvic lymphadenopathy or metastatic disease. 3. Moderate distal colonic diverticulosis. Approved by Kashmir Guerrier M.D. on 06/07/2017 12:08 PM By my electronic signature, I attest that I have personally reviewed the images for this examination and formulated the interpretations and opinions expressed in this report Finalized by Baudilio Mckee M.D. on 06/07/2017 12:13 PM. Dictated by Kashmir Guerrier M.D. on 06/07/2017 11:[address] CHEST, ABDOMEN AND PELVIS Clinical Indication:Male, 61 years old. Renal cancer, unspecified laterality Technique: Multiple contiguous axial images were obtained through the chest, abdomen and pelvis following the administration of IV contrast material. Post processing coronal and sagittal reconstruction images were made from the axial images. IV contrast: Isovue-370 Bowel contrast:None Comparison: CT abdomen pelvis dated 11/02/2016. CHEST FINDINGS: Lower Neck: Unremarkable Axilla, Mediastinum and Jocelynn: There are a few mildly enlarged lymph nodes in the mediastinum and bilateral jocelynn, some of which contain punctate calcifications. A reference subcarinal lymph node measures 2.3 x 1.1 cm on series 6 image 34. There is a moderate hiatal hernia. There is no axillary lymphadenopathy. Heart and Great Vessels: The heart is normal in size without pericardial effusion. The thoracic aorta is normal in caliber and contains mild mixed atherosclerotic plaque. There is incidental arch origin of the left vertebral artery. The central pulmonary arteries are patent. At least mild calcified coronary artery disease. Airway, Lungs and Pleura: The trachea and central airways are patent. There is mild paraseptal and centrilobular emphysema. There are several (greater than 20 ) scattered nodules in both lungs. A sales representative uniforms left upper lobe nodule measures 2.3 cm on series 6 image 48. A few of the nodules particularly within the right lower lobe have decreased in size since the outside study dated 2016, though at least one has developed (series 6 image 50). There is no pleural effusion or pneumothorax. Chest Wall and Osseous Structures: There is mild left convexity scoliosis of the upper thoracic spine and right convexity scoliosis of the lower thoracic spine. No destructive osseous lesion. There is a small subcutaneous low-density nodule in the right anterior chest wall which likely represents a small sebaceous cyst. There is mild symmetric bilateral gynecomastia. ABDOMEN AND PELVIS FINDINGS: Liver and Biliary system: The liver is normal in size. There is mild pneumobilia in the left lobe liver. There is no discrete liver lesion. The major portal veins are patent. Previous cholecystectomy. Spleen: Unremarkable. Adrenal Glands and Kidneys: There has been interval radical left nephrectomy. No discrete nodule in the operative bed is seen. There is an unchanged nodularity of the right adrenal gland. Normal right kidney without hydronephrosis or nephrolithiasis. Pancreas and Retroperitoneum: No hyperenhancing pancreatic lesion is seen. There is is unchanged 1.0 cm low-density lesion in the body of the pancreas since 11/02/2016 (series 5 image 221). A few mildly prominent retroperitoneal lymph nodes are seen, for example on series 7 image 29, which may be reactive. Aorta and Major Vessels: The abdominal aorta and iliac vessels are normal in caliber and contain moderate predominantly calcified atherosclerotic plaque. Bowel, Mesentery and Peritoneal space: The small and large bowel loops are normal in caliber. There is moderate distal colonic diverticulosis without evidence of diverticulitis. The appendix is normal. There is no mesenteric lymphadenopathy or fluid collection. Pelvis: The urinary bladder is mildly distended. The prostate and seminal vesicles are unremarkable. No pelvic lymphadenopathy. Abdominal wall and Osseous Structures: There is multilevel lumbar spondylosis and generalized bony demineralization. No destructive osseous lesion is seen. There is mild left convexity scoliosis of the lumbar spine. There is mild soft tissue thickening in the left anterior abdominal wall, likely from prior laparotomy. Procedure Note Interface, Radiant Results - 06/07/2017 12:[address] CHEST, ABDOMEN AND PELVIS Clinical Indication: Male, 61 years old. Renal cancer, unspecified laterality Technique: Multiple contiguous axial images were obtained through the chest, abdomen and pelvis following the administration of IV contrast material. Post processing coronal and sagittal reconstruction images were made from the axial images. IV contrast: Isovue-370 Bowel contrast: None Comparison: CT abdomen pelvis dated 11/02/2016. CHEST FINDINGS: Lower Neck: Unremarkable Axilla, Mediastinum and Jocelynn: There are a few mildly enlarged lymph nodes in the mediastinum and bilateral jocelynn, some of which contain punctate calcifications. A reference subcarinal lymph node measures 2.3 x 1.1 cm on series 6 image 34. There is a moderate hiatal hernia. There is no axillary lymphadenopathy. Heart and Great Vessels: The heart is normal in size without pericardial effusion. The thoracic aorta is normal in caliber and contains mild mixed atherosclerotic plaque. There is incidental arch origin of the left vertebral artery. The central pulmonary arteries are patent. At least mild calcified coronary artery disease. Airway, Lungs and Pleura: The trachea and central airways are patent. There is mild paraseptal and centrilobular emphysema. There are several (greater than 20 ) scattered nodules in both lungs. A sales representative uniforms left upper lobe nodule measures 2.3 cm on series 6 image 48. A few of the nodules particularly within the right lower lobe have decreased in size since the outside study dated 2016, though at least one has developed (series 6 image 50). There is no pleural effusion or pneumothorax. Chest Wall and Osseous Structures: There is mild left convexity scoliosis of the upper thoracic spine and right convexity scoliosis of the lower thoracic spine. No destructive osseous lesion. There is a small subcutaneous low-density nodule in the right anterior chest wall which likely represents a small sebaceous cyst. There is mild symmetric bilateral gynecomastia. ABDOMEN AND PELVIS FINDINGS: Liver and Biliary system: The liver is normal in size. There is mild pneumobilia in the left lobe liver. There is no discrete liver lesion. The major portal veins are patent. Previous cholecystectomy. Spleen: Unremarkable. Adrenal Glands and Kidneys: There has been interval radical left nephrectomy. No discrete nodule in the operative bed is seen. There is an unchanged nodularity of the right adrenal gland. Normal right kidney without hydronephrosis or nephrolithiasis. Pancreas and Retroperitoneum: No hyperenhancing pancreatic lesion is seen. There is is unchanged 1.0 cm low-density lesion in the body of the pancreas since 11/02/2016 (series 5 image 221). A few mildly prominent retroperitoneal lymph nodes are seen, for example on series 7 image 29, which may be reactive. Aorta and Major Vessels: The abdominal aorta and iliac vessels are normal in caliber and contain moderate predominantly calcified atherosclerotic plaque. Bowel, Mesentery and Peritoneal space: The small and large bowel loops are normal in caliber. There is moderate distal colonic diverticulosis without evidence of diverticulitis. The appendix is normal. There is no mesenteric lymphadenopathy or fluid collection. Pelvis: The urinary bladder is mildly distended. The prostate and seminal vesicles are unremarkable. No pelvic lymphadenopathy. Abdominal wall and Osseous Structures: There is multilevel lumbar spondylosis and generalized bony demineralization. No destructive osseous lesion is seen. There is mild left convexity scoliosis of the lumbar spine. There is mild soft tissue thickening in the left anterior abdominal wall, likely from prior laparotomy. IMPRESSION CHEST: 1. Bilateral pulmonary nodules, compatible with metastatic disease. 2. Mild mediastinal and hilar adenopathy. This likely represents metastatic disease. 3. Mild centrilobular and paraseptal emphysema. 4. Moderate hiatal hernia. ABDOMEN AND PELVIS: 1. Interval left radical nephrectomy without recurrent or residual nodule in the left renal fossa. 2. No abdominopelvic lymphadenopathy or metastatic disease. 3. Moderate distal colonic diverticulosis. Approved by Kashmir Guerirer M.D. on 06/07/2017 12:08 PM By my electronic signature, I attest that I have personally reviewed the images for this examination and formulated the interpretations and opinions expressed in this report Finalized by Baudilio Mckee M.D. on 06/07/2017 12:13 PM. Dictated by Kashmir Guerrier M.D. on 06/07/2017 11:07 AM. * POC CREATININE, RAD (06/07/2017 9:41 AM) Component Value Ref Range Creatinine, POC 1.3 (H) 0.4 - 1.24 MG/DL Specimen Performing Laboratory [facility] [address] [place] [address] from Last 3 Months
--- OUTSIDE RECORDS SUMMARY | 2017-06-25 06:59 | XMS REPORT | Encounter Summary ---
Author Author [facility] Organization [facility] Address Unknown Phone Unavailable Care Team Providers Care Stock Holder Name Role Phone PCP Unavailable Encounter Details Date Type Department Care Team Description 04/11/2017 Documentation [facility] Dick Amor MD [facility] [address] [place], [place] [id number] [place] [id number] [phone] Social History Tobacco Use Types Packs/Day Years Used Date Current Every Day Smoker Cigarettes 1 50 Smokeless Tobacco: Never Used Alcohol Use Drinks/Week oz/Week Comments No Sex Assigned at Date Recorded Not on file as of this encounter Functional Status Functional Status Response Date of Assessment Does the patient have a hearing impairment: No 01/11/2017 as of this encounter Progress Notes * Shiela Titus, RN - 04/11/2017 11:31 AM LUSI FELIPE Tay APRN with pt PCP in [place] faxed over CT chest results on pt . Pt did not have CT AP as ordered. Dr Amor reviewed results and recommended CT AP and lung biopsy. Pt was scheduled to see local oncologist 04/08 in [place] and will follow up with them. Dr Amor updated. in this encounter Plan of Treatment Not on fileas of this encounter Visit Diagnoses Not on filein this encounter
--- OUTSIDE RECORDS SUMMARY | 2017-06-25 06:59 | XMS REPORT | Encounter Summary ---
Author Author [facility] Organization [facility] Address Unknown Phone Unavailable Care Team Providers Care Watershed Manager Name Role Phone PCP Unavailable Encounter Details Date Type Department Care Team Description 02/05/2017 Procedure Pass [facility] Radiology [address] [facility] [address] [place] [address] Social History Tobacco Use Types [...]
--- OUTSIDE RECORDS SUMMARY | 2017-06-25 06:59 | XMS REPORT | Encounter Summary ---
Author Author [facility] Organization [facility] Address Unknown Phone Unavailable Care Team Providers Care Kitchen Mechanic Name Role Phone PCP Unavailable Reason for Referral * Radiology Services Status Reason Specialty Diagnoses / Referred By Referred To Procedures Contact Contact New Request Radiology Diagnoses Ryan Burton MD Renal cancer, [address] laterality (HCC) [place] [address] [place], [place] rocedures [address] CT ABD/PELV W Phone: CONTRAST [phone] CT ABD/PELV WO/W Fax: CONTRAST [phone] * Radiology Services Status Reason Specialty Diagnoses / Referred By Referred To Procedures Contact Contact New Request Radiology Diagnoses Ryan Burton MD Renal cancer, [address] laterality (HCC) [place] [address] [place], [place]ced[place] [address] CT ABD/PELV W Phone: CONTRAST [phone] CT ABD/PELV WO/W Fax: CONTRAST [phone] * Radiology Services Status Reason Specialty Diagnoses / Referred By Referred To Procedures Contact Contact No Auth Needed Radiology Diagnoses Ryan Burton MD Bh[address] Ct Renal cancer, [address] FLO[address] laterality (HCC) [place] [address] [place], [place] [address] rocedures [address] Phone: CT CHEST W CONTRAST [phone] CT CHEST WO/W Fax: CONTRAST [phone] * Radiology Services Status Reason Specialty Diagnoses / Referred By Referred To Procedures Contact Contact No Auth Needed Radiology Diagnoses Ryan Burton MD [address] Ct Renal cancer, [address] FLO[address] laterality (HCC) [place] [address] [place], [place] [address] rocedures [address] Phone: CT CHEST W CONTRAST [phone] CT CHEST WO/W Fax: CONTRAST [phone] Reason for Visit * Radiology Services Status Reason Specialty Diagnoses / Referred By Referred To Procedures Contact Contact No Auth Needed Radiology Diagnoses Ryan Burton MD [address] Ct Renal cancer, [address] FLO[address] laterality (HCC) [place] [address] [place], [place] [address] rocedures [address] Phone: CT CHEST W CONTRAST [phone] CT CHEST WO/W Fax: CONTRAST [phone] Encounter Details Date Type Department Care Team Description 06/07/2017 [facility] Ryan Burton MD Encounter Hospital Radiology [address] [place] [address] [place] [address] [address] FLO[address] [phone] [place] [address] [phone] Social History Tobacco Use Types Packs/Day Years Used Date Current Every Day Smoker Cigarettes 1 50 Smokeless Tobacco: Never Used Alcohol Use Drinks/Week oz/Week Comments No Sex Assigned at Date Recorded Not on file as of this encounter Functional Status Functional Status Response Date of Assessment Does the patient have a hearing impairment: No 01/11/2017 as of this encounter Medications at Time of Discharge Medication Sig. Disp. Refills Start Date End Date calcium carbonate/vitamin Take 2 Tabs by mouth D-3 (OSCAL-500+D) 1250 daily. Calcium Carb mg/200 unit tablet 1250mg delivers 500mg elemental Ca cholecalciferol (VITAMIN Take 1,000 Units by mouth D-3) 1,000 units tablet daily. colestipol (COLESTID) 1 Take 2 g by mouth twice gram tablet daily. GABAPENTIN (BULK) MISC Use as directed. GINKGO BILOBA (GINKOBA Take 2 Tabs by mouth PO) daily. glimepiride (AMARYL) 4 mg Take 4 mg by mouth twice tablet daily with meals. insulin glargine (LANTUS Inject 20 Units under the SOLOSTAR) 100 unit/mL (3 skin at bedtime daily. mL) injection PEN [id number] Take 1 Cap by mouth -Astx (KRILL OIL) daily. 1000-130(40-80) mg cap lisinopril (PRINIVIL; Take 20 mg by mouth ZESTRIL) 20 mg tablet daily. Lutein 20 mg cap Take 1 Cap by mouth daily. Magnesium 250 mg tab Take 250 mg by mouth daily. metFORMIN (GLUCOPHAGE) Take 500 mg by mouth 500 mg tablet twice daily with meals. naproxen sodium(+) Take 2 Tabs by mouth (ALEVE) 220 mg tablet twice daily. Take with food. other medication 1 Dose. Focus factor 1 capsule daily. oxyCODONE/acetaminophen Take 1 tablet by mouth 40 tablet 0 01/13/2017 (ENDOCET) 5/325 mg tablet every 4 hours as needed for Pain Earliest Fill Date: 01/13/17 pazopanib (VOTRIENT) 200 Take 800 mg by mouth mg tablet daily. Take on an empty stomach, at least 1 hour before and 2 hours after food. Potassium 99 mg tab Take 1 Tab by mouth daily. senna/docusate Take 1 tablet by mouth 15 tablet 0 01/13/2017 (SENOKOT-S) 8.6/50 mg daily. tablet turmeric root extract 500 Take 1 Cap by mouth twice mg cap daily. vitamins, B complex tab Take 1 Tab by mouth daily. as of this encounter Plan of Treatment Not on fileas of this encounter Results * CT ABD/PELV W CONTRAST (06/07/2017 [...] ) scattered nodules in both lungs. A client service representative left upper lobe nodule measures 2.3 cm [...] Interface, Radiant Results - 06/07/2017 12:16 [address]ER CT CHEST, ABDOMEN AND PELVIS Clinical Indication: [...] ) scattered nodules in both lungs. A client service representative left upper lobe nodule measures 2.3 cm [...] ) scattered nodules in both lungs. A client service representative left upper lobe nodule measures 2.3 cm [...] Interface, Radiant Results - 06/07/2017 12:16 [address]Y [employer]ER CT CHEST, ABDOMEN AND PELVIS Clinical Indication: [...] ) scattered nodules in both lungs. A client service representative left upper lobe nodule measures 2.3 cm [...] MG/DL Specimen Performing Laboratory [facility] [address] [place] [address] in this encounter Visit Diagnoses Diagnosis Renal cancer, unspecified laterality (HCC) in this encounter Administered Medications Medication Order MAR Action Action Date Dose Rate Site iopamidol 370 (ISOVUE-370) injection 70 Given 06/07/2017 70 mL mL 10:05 TIME STUDY ENGINEER 70 mL, Intravenous, ONCE, 1 dose, 06/07/17 at 1015, NOTE: This is a HIGH ALERT Medication. sodium chloride PF 0.9% injection 50 mL Given 06/07/2017 50 mL 50 mL, Intravenous, ONCE, 1 dose, Fri 10:05 TIME STUDY ENGINEER 06/07/17 at 1015, DO NOT SEND this medication unless it is requested. This med is usually available in floor stock. in this encounter
--- OUTSIDE RECORDS SUMMARY | 2017-06-25 07:01 | XMS REPORT | Continuity of Care Document ---
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 HERNIA WITHOUT OBSTRUCTION 05/16/2017 ARABELLA BILLY MD, Ot K57.30 DVRTCLOS OF LG INT W/O PERFORATION OR AB 05/16/2017 ARABELLA BILLY MD, Ot R91.8 OTHER NONSPECIFIC ABNORMAL FINDING OF KAIN 05/16/2017 ARABELLA BILLY MD, Ot Z85.528 PERSONAL HISTORY OF OTHER MALIGNANT NEOP 05/16/2017 ARABELLA BILLY MD, Ot Z90.5 ACQUIRED ABSENCE OF KIDNEY 06/05/2017 ARABELLA BILLY MD, Ot 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 NEOPLASM OF LEFT KIDNEY, EXCEP 06/05/2017 ARABELLA BILLY MD, Ot E11.9 TYPE 2 DIABETES MELLITUS WITHOUT COMPLIC 06/05/2017 ARABELLA BILLY MD, Ot F17.210 NICOTINE DEPENDENCE, CIGARETTES, UNCOMPL 06/05/2017 ARABELLA BILLY MD, Ot I10 ESSENTIAL (PRIMARY) HYPERTENSION 06/05/2017 ARBAELLA BILLY MD, Ot R91.1 SOLITARY PULMONARY NODULE 06/05/2017 ARABELLA BILLY MD, Ot Z79.4 MCC (CURRENT) USE OF INSULIN 06/05/2017 ARABELLA BILLY MD, Ot Z79.899 OTHER OIM ARCHITECT (CURRENT) DRUG THERAPY 06/19/2017 ARABELLA BILLY MD, Ot 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 NEOPLASM OF LEFT KIDNEY, EXCEP 06/19/2017 ARABELLA BILLY MD, Ot E11.9 TYPE 2 DIABETES MELLITUS WITHOUT COMPLIC 06/19/2017 ARABELLA BILLY MD, Ot F17.210 NICOTINE DEPENDENCE, CIGARETTES, UNCOMPL 06/19/2017 ARABELLA BILLY MD, Ot I10 ESSENTIAL (PRIMARY) HYPERTENSION 06/19/2017 ARABELLA BILLY MD, Ot R91.1 SOLITARY PULMONARY NODULE 06/19/2017 ARABELLA BILLY MD, Ot Z79.4 MCC (CURRENT) USE OF INSULIN 06/19/2017 ARABELLA BILLY MD, Ot Z79.899 OTHER OIM ARCHITECT (CURRENT) DRUG THERAPY Procedures Code Description Performed By Performed On 81.54 TOTAL KNEE REPLACEMENT 10/20/2013 [id number] REPLACE OF R KNEE JT WITH SYNTH SUB, ALETA 09/20/2015 Results Test Result Range Automated blood complete blood count (hemogram) panel - 09/12/16 17:38 Blood leukocytes automated count (number/volume) 7.2 10*3/uL 4.3-11.0 Blood erythrocytes automated count (number/volume) 4.30 10*6/uL 4.35-5.85 Venous blood hemoglobin measurement (mass/volume) 12.3 g/dL 13.3-17.7 Blood hematocrit (volume fraction) 38 % 40-54 Automated erythrocyte mean corpuscular volume 89 [foz_us] 80-99 Automated erythrocyte mean corpuscular hemoglobin (mass per erythrocyte) 29 pg 25-34 Automated erythrocyte mean corpuscular hemoglobin concentration measurement ( mass/volume) 32 g/dL 32-36 Automated erythrocyte distribution width ratio 15.4 % 10.0-14.5 Automated blood platelet count (count/volume) 237 10*3/uL 130-400 Automated blood platelet mean volume measurement 10.5 [foz_us] 7.4-10.4 Serum or plasma uric acid measurement (mass/volume) - 09/12/16 17:38 Serum or plasma uric acid measurement (mass/volume) 4.2 mg/dL 2.6-7.2 Serum or plasma C reactive protein measurement (mass/volume) - 09/12/16 17:38 Serum or plasma C reactive protein measurement (mass/volume) 0.09 mg /dL 0.00-0.50 Erythrocyte sedimentation rate by westergren method - 09/12/16 17:38 Erythrocyte sedimentation rate by westergren method 7 mm 0-30 Serum or plasma rheumatoid factor measurement (units/volume) - 09/12/16 17:38 Serum or plasma rheumatoid factor measurement (units/volume) NEGATIVE NEGATIVE [id number] - 09/12/16 17:38 Screening antinuclear antibody (FLASH) assay by enzyme immunoassay <1: 80 <1:80 Streptococcus pyogenes antigen detection - 11/02/16 07:20 Streptococcus pyogenes antigen detection NEGATIVE NEGATIVE Bacterial throat culture - 11/02/16 07:20 Bacterial throat culture NBS NRG Complete urinalysis with reflex to culture - 11/02/16 07:55 Urine color determination YELLOW NRG Urine clarity determination CLEAR NRG Urine pH measurement by test strip 5 5-9 Specific gravity of urine by test strip 1.030 1.016- 1.022 Urine protein assay by test strip, semi-quantitative 3+ NEGATIVE Urine glucose detection by automated test strip NEGATIVE NEGATIVE Erythrocytes detection in urine sediment by light microscopy 1+ NEGATIVE Urine ketones detection by automated test strip 3+ NEGATIVE Urine nitrite detection by test strip NEGATIVE NEGATIVE Urine total bilirubin detection by test strip 1+ NEGATIVE Urine urobilinogen measurement by automated test strip (mass/volume) 1 mg/dL NORMAL Urine leukocyte esterase detection by dipstick 1+ NEGATIVE Automated urine sediment erythrocyte count by microscopy (number/high power field) NONE NRG Automated urine sediment leukocyte count by microscopy (number/high power field ) [HPF] NRG Bacteria detection in urine sediment by light microscopy TRACE NRG Squamous epithelial cells detection in urine sediment by light microscopy RARE NRG Crystals detection in urine sediment by light microscopy NONE NRG Casts detection in urine sediment by light microscopy PRESENT NRG Mucus detection in urine sediment by light microscopy SMALL NRG Complete urinalysis with reflex to culture YES NRG Granular casts detection in urine sediment by light microscopy 25- 50 NRG Other elements identification in urine sediment by light microscopy RARE SPERM NRG Bacterial urine culture - 11/02/16 07:55 URINE CULTURE RESULTS <10,000/ML NRG Bacterial blood culture - 11/02/16 08:10 Bacterial blood culture NG NRG Complete blood count (CBC) with automated white blood cell (WBC) differential - 11/02/16 08:15 Blood leukocytes automated count (number/volume) 17.8 10*3/uL 4.3-11.0 Blood erythrocytes automated count (number/volume) 4.45 10*6/uL 4.35-5.85 Venous blood hemoglobin measurement (mass/volume) 12.6 g/dL 13.3-17.7 Blood hematocrit (volume fraction) 40 % 40-54 Automated erythrocyte mean corpuscular volume 89 [foz_us] 80-99 Automated erythrocyte mean corpuscular hemoglobin (mass per erythrocyte) 28 pg 25-34 Automated erythrocyte mean corpuscular hemoglobin concentration measurement ( mass/volume) 32 g/dL 32-36 Automated erythrocyte distribution width ratio 14.9 % 10.0-14.5 Automated blood platelet count (count/volume) 202 10*3/uL 130-400 Automated blood platelet mean volume measurement 10.3 [foz_us] 7.4-10.4 Automated blood neutrophils/100 leukocytes 85 % 42-75 Automated blood lymphocytes/100 leukocytes 7 % 12-44 Blood monocytes/100 leukocytes 9 % 0-12 Automated blood eosinophils/100 leukocytes 0 % 0-10 Automated blood basophils/100 leukocytes 0 % 0-10 Blood neutrophils automated count (number/volume) 15.1 10*3 1.8-7.8 Blood lymphocytes automated count (number/volume) 1.2 10*3 1.0-4.0 Blood monocytes automated count (number/volume) 1.5 10*3 0.0-1.0 Automated eosinophil count 0.0 10*3/uL 0.0-0.3 Automated blood basophil count (count/volume) 0.0 10*3/uL 0.0-0.1 PT panel in platelet poor plasma by coagulation assay - 11/02/16 08:15 Prothrombin time (PT) in platelet poor plasma by coagulation assay 13.7 s 12.2-14.7 INR in platelet poor plasma or blood by coagulation assay 1.1 0.8-1.4 Activated partial thromboplastin time (aPTT) in platelet poor plasma bycoagulation assay - 11/02/16 08:15 Activated partial thromboplastin time (aPTT) in platelet poor plasma bycoagulation assay 28 s 24-35 Blood lactic acid measurement (moles/volume) - 11/02/16 08:15 Blood lactic acid measurement (moles/volume) 0.78 mmol/L 0.50-2.00 Blood manual differential performed detection - 11/02/16 08:15 Blood monocytes/100 leukocytes 6 % NRG Manual blood segmented neutrophils/100 leukocytes 83 % NRG Blood band neutrophils/100 leukocytes 1 % NRG Manual blood lymphocytes/100 leukocytes 10 % NRG Blood erythrocyte morphology finding identification NORMAL [facility] Comprehensive metabolic panel - 11/02/16 08:15 Serum or plasma sodium measurement (moles/volume) 138 mmol/L 135-145 Serum or plasma potassium measurement (moles/volume) 4.1 mmol/L 3.6-5.0 Serum or plasma chloride measurement (moles/volume) 102 mmol/L 98-107 Carbon dioxide 27 mmol/L 21-32 Serum or plasma anion gap determination (moles/volume) 9 mmol/L 5-14 Serum or plasma urea nitrogen measurement (mass/volume) 16 mg/dL 7-18 Serum or plasma creatinine measurement (mass/volume) 1.11 mg/dL 0.60-1.30 Serum or plasma urea nitrogen/creatinine mass ratio 14 NRG Serum or plasma creatinine measurement with calculation of estimated glomerular filtration rate > NRG Serum or plasma glucose measurement (mass/volume) 157 mg/dL 70-105 Serum or plasma calcium measurement (mass/volume) 9.2 mg/dL 8.5-10.1 Serum or plasma total bilirubin measurement (mass/volume) 0.9 mg/dL 0.1-1.0 Serum or plasma alkaline phosphatase measurement (enzymatic activity/volume) 58 U/L 40-136 Serum or plasma aspartate aminotransferase measurement (enzymatic activity/ volume) 21 U/L 5-34 Serum or plasma alanine aminotransferase measurement (enzymatic activity/volume ) 18 U/L 0-55 Serum or plasma protein measurement (mass/volume) 6.9 g/dL 6.4-8.2 Serum or plasma albumin measurement (mass/volume) 3.7 g/dL 3.2-4.5 Serum or plasma C reactive protein measurement (mass/volume) - 11/02/16 08:15 Serum or plasma C reactive protein measurement (mass/volume) 12.29 mg/dL 0.00-0.50 Bacterial blood culture - 11/02/16 08:40 Bacterial blood culture NG NRG Capillary blood glucose measurement by glucometer (mass/volume) - 11/02/16 11: 59 Capillary blood glucose measurement by glucometer (mass/volume) 104 mg/dL 70-110 Capillary blood glucose measurement by glucometer (mass/volume) - 11/02/16 14: 17 Capillary blood glucose measurement by glucometer (mass/volume) 125 mg/dL 70-110 Capillary blood glucose measurement by glucometer (mass/volume) - 11/02/16 19: 58 Capillary blood glucose measurement by glucometer (mass/volume) 186 mg/dL 70-110 Complete blood count (CBC) with automated white blood cell (WBC) differential - 11/03/16 05:05 Blood leukocytes automated count (number/volume) 13.0 10*3/uL 4.3-11.0 Blood erythrocytes automated count (number/volume) 3.94 10*6/uL 4.35-5.85 Venous blood hemoglobin measurement (mass/volume) 11.2 g/dL 13.3-17.7 Blood hematocrit (volume fraction) 36 % 40-54 Automated erythrocyte mean corpuscular volume 91 [foz_us] 80-99 Automated erythrocyte mean corpuscular hemoglobin (mass per erythrocyte) 28 pg 25-34 Automated erythrocyte mean corpuscular hemoglobin concentration measurement ( mass/volume) 31 g/dL 32-36 Automated erythrocyte distribution width ratio 14.9 % 10.0-14.5 Automated blood platelet count (count/volume) 171 10*3/uL 130-400 Automated blood platelet mean volume measurement 10.8 [foz_us] 7.4-10.4 Automated blood neutrophils/100 leukocytes 76 % 42-75 Automated blood lymphocytes/100 leukocytes 11 % 12-44 Blood monocytes/100 leukocytes 11 % 0-12 Automated blood eosinophils/100 leukocytes 1 % 0-10 Automated blood basophils/100 leukocytes 0 % 0-10 Blood neutrophils automated count (number/volume) 9.9 10*3 1.8-7.8 Blood lymphocytes automated count (number/volume) 1.4 10*3 1.0-4.0 Blood monocytes automated count (number/volume) 1.5 10*3 0.0-1.0 Automated eosinophil count 0.2 10*3/uL 0.0-0.3 Automated blood basophil count (count/volume) 0.0 10*3/uL 0.0-0.1 Comprehensive metabolic panel - 11/03/16 05:05 Serum or plasma sodium measurement (moles/volume) 140 mmol/L 135-145 Serum or plasma potassium measurement (moles/volume) 4.2 mmol/L 3.6-5.0 Serum or plasma chloride measurement (moles/volume) 109 mmol/L 98-107 Carbon dioxide 24 mmol/L 21-32 Serum or plasma anion gap determination (moles/volume) 7 mmol/L 5-14 Serum or plasma urea nitrogen measurement (mass/volume) 15 mg/dL 7-18 Serum or plasma creatinine measurement (mass/volume) 0.91 mg/dL 0.60-1.30 Serum or plasma urea nitrogen/creatinine mass ratio 16 NRG Serum or plasma creatinine measurement with calculation of estimated glomerular filtration rate > NRG Serum or plasma glucose measurement (mass/volume) 60 mg/dL 70-105 Serum or plasma calcium measurement (mass/volume) 8.1 mg/dL 8.5-10.1 Serum or plasma total bilirubin measurement (mass/volume) 0.5 mg/dL 0.1-1.0 Serum or plasma alkaline phosphatase measurement (enzymatic activity/volume) 50 U/L 40-136 Serum or plasma aspartate aminotransferase measurement (enzymatic activity/ volume) 26 U/L 5-34 Serum or plasma alanine aminotransferase measurement (enzymatic activity/volume ) 26 U/L 0-55 Serum or plasma protein measurement (mass/volume) 5.7 g/dL 6.4-8.2 Serum or plasma albumin measurement (mass/volume) 3.1 g/dL 3.2-4.5 Capillary blood glucose measurement by glucometer (mass/volume) - 11/03/16 06: 47 Capillary blood glucose measurement by glucometer (mass/volume) 76 mg/dL 70-110 Capillary blood glucose measurement by glucometer (mass/volume) - 11/03/16 08: 43 Capillary blood glucose measurement by glucometer (mass/volume) 132 mg/dL 70-110 Complete urinalysis with reflex to culture - 11/03/16 11:25 Urine color determination YELLOW NRG Urine clarity determination SLIGHTLY CLOUDY NRG Urine pH measurement by test strip 5 5-9 Specific gravity of urine by test strip 1.015 1.016- 1.022 Urine protein assay by test strip, semi-quantitative 2+ NEGATIVE Urine glucose detection by automated test strip 1+ NEGATIVE Erythrocytes detection in urine sediment by light microscopy 1+ NEGATIVE Urine ketones detection by automated test strip NEGATIVE NEGATIVE Urine nitrite detection by test strip NEGATIVE NEGATIVE Urine total bilirubin detection by test strip NEGATIVE NEGATIVE Urine urobilinogen measurement by automated test strip (mass/volume) NORMAL NORMAL Urine leukocyte esterase detection by dipstick NEGATIVE NEGATIVE Automated urine sediment erythrocyte count by microscopy (number/high power field) NONE NRG Automated urine sediment leukocyte count by microscopy (number/high power field ) RARE NRG Bacteria detection in urine sediment by light microscopy NEGATIVE NRG Squamous epithelial cells detection in urine sediment by light microscopy NONE NRG Crystals detection in urine sediment by light microscopy NONE NRG Casts detection in urine sediment by light microscopy NONE NRG Mucus detection in urine sediment by light microscopy NEGATIVE NRG Complete urinalysis with reflex to culture NO NRG Capillary blood glucose measurement by glucometer (mass/volume) - 11/03/16 14: 12 Capillary blood glucose measurement by glucometer (mass/volume) 275 mg/dL 70-110 Capillary blood glucose measurement by glucometer (mass/volume) - 11/03/16 20: 16 Capillary blood glucose measurement by glucometer (mass/volume) 157 mg/dL 70-110 Capillary blood glucose measurement by glucometer (mass/volume) - 11/03/16 21: 16 Capillary blood glucose measurement by glucometer (mass/volume) 145 mg/dL 70-110 Capillary blood glucose measurement by glucometer (mass/volume) - 11/04/16 06: 20 Capillary blood glucose measurement by glucometer (mass/volume) 71 mg/dL 70-110 Capillary blood glucose measurement by glucometer (mass/volume) - 11/04/16 09: 36 Capillary blood glucose measurement by glucometer (mass/volume) 158 mg/dL 70-110 Automated blood complete blood count (hemogram) panel - 04/19/17 08:05 Blood leukocytes automated count (number/volume) 6.3 10*3/uL 4.3-11.0 Blood erythrocytes automated count (number/volume) 4.32 10*6/uL 4.35-5.85 Venous blood hemoglobin measurement (mass/volume) 12.3 g/dL 13.3-17.7 Blood hematocrit (volume fraction) 39 % 40-54 Automated erythrocyte mean corpuscular volume 90 [foz_us] 80-99 Automated erythrocyte mean corpuscular hemoglobin (mass per erythrocyte) 29 pg 25-34 Automated erythrocyte mean corpuscular hemoglobin concentration measurement ( mass/volume) 32 g/dL 32-36 Automated erythrocyte distribution width ratio 14.8 % 10.0-14.5 Automated blood platelet count (count/volume) 237 10*3/uL 130-400 Automated blood platelet mean volume measurement 9.9 [foz_us] 7.4-10.4 PT panel in platelet poor plasma by coagulation assay - 04/19/17 08:05 Prothrombin time (PT) in platelet poor plasma by coagulation assay 12.3 s 12.2-14.7 INR in platelet poor plasma or blood by coagulation assay 0.9 0.8-1.4 Activated partial thromboplastin time (aPTT) in platelet poor plasma bycoagulation assay - 04/19/17 08:05 Activated partial thromboplastin time (aPTT) in platelet poor plasma bycoagulation assay 27 s 24-35 Capillary blood glucose measurement by glucometer (mass/volume) - 04/19/17 20: 48 Capillary blood glucose measurement by glucometer (mass/volume) 225 mg/dL 70-110 Capillary blood glucose measurement by glucometer (mass/volume) - 04/20/17 05: 59 Capillary blood glucose measurement by glucometer (mass/volume) 71 mg/dL 70-110 Encounters ACCT No. Visit Date/Time Discharge Status Pt. Type Provider Facility Loc./Unit Complaint [id number] 06/19/2017 14:43:00 06/19/2017 23:59:59 CLS Outpatient ARABELLA BILLY MD [facility] ONC [id number] 04/19/2017 14:45:00 04/20/2017 12:15:00 DIS Outpatient BARBARA FAUST MD [facility] 4TH LUNG NODULE [id number] 04/10/2017 12:25:00 04/10/2017 23:59:59 CLS Outpatient ARABELLA BILLY MD [facility] RAD CARCINOMA RENAL CELL [id number] 03/07/2017 15:52:00 03/07/2017 23:59:59 CLS Outpatient BEREKET MARTINEZ MD [facility] RAD RENAL CA [id number] 11/09/2016 07:56:00 02/07/2017 00:01:00 DIS Outpatient ARABELLA BILLY MD [facility] ONC [id number] 12/19/2016 15:21:00 12/19/2016 23:59:59 CLS Outpatient VIOLET DOE MD [facility] RAD RENAL MASS [id number] 11/02/2016 11:12:00 11/04/2016 13:45:00 DIS Inpatient FARHAN COYLE DO [facility] 4TH SEPSIS,PHARYNGITIS,UTI, RENAL MASS [id number] 10/15/2016 15:43:00 10/15/2016 23:59:59 CLS Outpatient OMEGA SCOTT MD [facility] RAD 54.2 M54.14 NECK PAIN, CLAUDICATION [id number] 09/20/2016 15:26:00 09/20/2016 23:59:59 CLS Outpatient DANIEL GARLAND DO [facility] RAD SCOLIOSIS [id number] 09/12/2016 17:18:00 09/12/2016 23:59:59 CLS Outpatient KAROLINA BONDS APRN [facility] LAB BILAT JOINT PAIN [id number] 09/06/2016 11:33:00 09/06/2016 23:59:59 CLS Outpatient DADA BRANDTDANIEL [facility] CARD MONO KNEE PAIN [id number] 11/28/2015 10:30:00 12/01/2015 09:48:00 DIS Outpatient DADA BRANDTDANIEL [facility] REHAB S/P L TOTAL KNEE [id number] 09/20/2015 09:50:00 09/23/2015 11:22:00 DIS Inpatient DADA BRANDT DANIEL Steven [facility] 4TH RIGHT KNEE [id number] 09/09/2015 08:52:00 09/09/2015 13:43:00 DIS Outpatient DADA BRANDT DANIEL Maurizio [facility] PREOP RIGHT KNEE [id number] 06/18/2014 16:30:00 06/21/2014 11:49:00 DIS Outpatient DADA BRANDT DANIEL Steven [facility] REHAB ARTHROFIBROSIS L KNEE S/P SERA S/P L TKA [id number] 12/21/2013 14:57:00 02/08/2014 00:01:00 DIS Outpatient DADA BRANDT DANIEL Steven [facility] REHAB S/P L TKR [id number] 12/16/2013 11:37:00 12/16/2013 23:59:59 CLS Outpatient KAROLINA BONDS APRN [facility] LABNPT (L)KNEE PAIN S/P (L) TKA [id number] 10/29/2013 14:30:00 10/29/2013 23:59:59 CLS Outpatient DADA BRANDT DANIEL Maurizio [facility] HH TKR, ANTICOAG THERAPY [id number] 10/20/2013 10:42:00 10/24/2013 13:30:00 DIS Inpatient DADA BRANDT DANIEL Maurizio [facility] SURGICAL LEFT KNEE DEGENERATIVE JOINT DISEASE [id number] 10/13/2013 09:51:00 10/13/2013 23:59:59 CLS Outpatient DADA , DANIEL Steven [facility] PREOP LEFT KNEE DEGENERATIVE JOINT DISEASE [id number] 06/08/2013 18:34:00 06/12/2013 13:15:00 DIS Inpatient BOONE ABAD MD [facility] 4TH INFLUENZA A, HYPOXIA [id number] 01/16/2013 15:49:00 01/16/2013 23:59:59 CLS Outpatient VALERIE BARRIOS MD [facility] RAD LOCKING RT KNEE [id number] 01/13/2013 15:51:00 01/13/2013 23:59:59 CLS Outpatient VALERIE BARRIOS MD [facility] RAD LOCKING RT KNEE [id number] 11/17/2012 15:58:00 11/17/2012 23:59:59 CLS Outpatient
--- NOTE | 2017-06-25 07:11 | ED General ---
General Stated Complaint: LOW BLOOD SUGAR Source of Information: EMS, Old Records Exam Limitations: Other (PT CONFUSED AND UNABLE TO ANSWER QUESTIONS ON ARRIVAL) History of Present Illness Date Seen by Provider: Jun 25, 2017 Time Seen by Provider: 06:53 Initial Comments PT ARRIVES VIA EMS FROM [facility] PT WAS AT WORK AND EMS WAS CALLED FOR PT WITH CONFUSION AND LETHARGY ACCUCHECK 21 AT SCENE EMS ATTEMPTED TO GIVE ORAL GLUCOSE, BUT PT SPIT IT OUT NO IV ACCESS ON ARRIVAL PER EMS, PT TOOK INSULIN AND AT LAST NIGHT, BUT DID NOT EAT THIS AM NO OTHER INFORMATION IS OBTAINABLE ON ARRIVAL PCP: DR. MOELLER ONCOLOGY: DR. BILLY Allergies and Home Medications Allergies Coded Allergies: meperidine (Verified Allergy, Unknown, RASH, Pt has received Fentanyl w/o issue, 04/19/17) Home Medications Ascorbic Acid 500 Mg Tablet, 500 MG PO DAILY, (Reported) Calcium Carbonate/Vitamin D3 1 Each Tablet, 1 TAB PO BID, (Reported) Cholecalciferol (Vitamin D3) 2,000 Unit Capsule, 2,000 UNIT PO DAILY, (Reported) Colestipol HCl 1 Gm Tablet, 2 GM PO BID, (Reported) TAKES 2 (1GM) TABLET Ferrous Sulfate 325 Mg Tablet, 325 MG PO BID, (Reported) Gabapentin 300 Mg Capsule, 300 MG PO TID, (Reported) Glimepiride 4 Mg Tablet, 4 MG PO BID, (Reported) Hydrocodone/Acetaminophen 1 Each Tablet, 1 TAB PO TID PRN for PAIN-MODERATE, ( Reported) Insulin Glargine,Hum.rec.anlog 100 Unit/1 Ml Insuln.pen, 20 UNITS SC HS, ( Reported) Krill/Om-3/Dha/Epa/Phospho/Ast 1 Each Capsule, 1 CAP PO DAILY, (Reported) Lisinopril 20 Mg Tablet, 20 MG PO DAILY, (Reported) Lutein 20 Mg Tablet, 40 MG PO BID, (Reported) Magnesium Oxide 400 Mg Tablet, 400 MG PO DAILY, (Reported) Metformin HCl 500 Mg Tablet, 500 MG PO BID, (Reported) Ondansetron 8 Mg Tab.rapdis, 8 MG PO TID PRN for NAUSEA/VOMITING-1ST LINE, ( Reported) Potassium Gluconate 99 Mg Tablet, 99 MG PO DAILY, (Reported) Flako AC/Safflower Oil 52 Ml Oil, TP BID, (Reported) APPLY TO SCARS [Vitorient] , (Reported) Constitutional: see HPI Past Dheozrb-Haslcm-Bonnyf Hx Patient Social History Alcohol Use: Denies Use Recreational Drug Use: No Smoking Status: Current Everyday Smoker (1 PPD) Type Used: Cigarettes (1 PPD) Recent Foreign Travel: No Contact w/Someone Who Travel: No Recent Hopitalizations: No Immunizations Up To Date Tetanus Booster (TDap): More than 5yrs Date of Pneumonia Vaccine: Sep 08, 2014 Date of Influenza Vaccine: Mar 04, 2017 Seasonal Allergies Seasonal Allergies: No Surgeries History of Surgeries: Yes (HERNIA X2 REPAIR, CARPAL TUNNEL, CATARACTS, BMT, SCREWS IN KNEE & REMOVED, LEFT TOTAL KNEE REPLACEMENT 2013; LUNG BIOPSY; LEFT NEPHRECTOMY) Surgeries: Abdominal, Ear Surgery, Eye Surgery, Gallbladder, Joint Replacement , Nephrectomy, Orthopedic Respiratory History of Respiratory Disorde: Yes (LUNG BIOPSY/PNEUMOTHORAX; LUNG CANCER) Respiratory Disorders: Pneumonia, Chronic Bronchitis Currently Using CPAP: No Currently Using BIPAP: No Cardiovascular History of Cardiac Disorders: Yes Cardiac Disorders: Hypertension Neurological History of Neurological Disord: No Reproductive System Hx Reproductive Disorders: No HIV/AIDS: No Genitourinary History of Genitourinary Disor: Yes (RENAL CANCER--LEFT NEPHRECTOMY) Gastrointestinal History of Gastrointestinal Di: Yes Gastrointestinal Disorders: Chronic Diarrhea, Polyps Musculoskeletal History of Musculoskeletal Dis: Yes (FX LEG, COLLAR BONE, RIBS, FOOT; OSTEOARTHRITIS KNEES) Musculoskeletal Disorders: Degenerate Disk Disease, Arthritis, Chronic Back Pain Endocrine History of Endocrine Disorders: Yes Endocrine Disorders: Diabetes, Insulin dep HEENT History of HEENT Disorders: Yes HEENT Disorders: Cataract Loss of Vision: Bilateral Hearing Impairment: Hard of Hearing Cancer History of Cancer: Yes Cancer: Lung, Kidney Did You Recieve Any Treatments: Yes (HAD LEFT NEPHRECTOMY FOR RENAL CANCER 2013 ; NOW WITH LUNG CANCER / LUNG METS ? AND IS ON ORAL CHEMO) Type of Tx Receive: Chemotherapy (FOR LUNG CANCER), Surgical Intervention (FOR RENAL CANCER) Psychosocial History of Psychiatric Problem: No Integumentary History of Skin or Integumenta: No Blood Transfusions History of Blood Disorders: No Adverse Reaction to a Blood Tr: No Family Medical History Significant Family History: No Pertinent Family Hx Family Medial History: Diabetes mellitus 19 FATHER 19 MOTHER G8 BROTHER FH: skin cancer 19 MOTHER Family history: Arthritis Family history: Coronary thrombosis Family history: Diabetes mellitus History of - respiratory disease No Family History of: Abdominal aortic aneurysm Karlos's disease Alcoholism Aphasia Cancer Cancer of colon Cataract Chest pain Congenital heart disease Congestive heart failure Cystic fibrosis Dementia Dysphagia Family history: Allergy Family history: Alzheimer's disease Family history: Asthma Family history: Breast disease Family history: Cardiovascular disease Family history: Gastrointestinal disease Family history: Glaucoma Family history: Hypertension Family history: Osteoporosis Family history: Thyroid disorder Headache Hearing loss Heart disease Hereditary disease History of - anemia History of - disorder History of drug abuse Human immunodeficiency virus (HIV) seropositivity Hypercholesterolemia Infertile Kidney disease Malignant neoplasm of lung Myocardial infarction Parkinson's disease Prostate cancer Psychotic disorder Seizure disorder Stroke Tuberculosis Visual impairment Physical Exam Vital Signs Vital Sign - Last 12Hours 06/25/17 07:00 Temp 97.6 Pulse 51 Resp 18 B/P (MAP) 147/73 (97) Capillary Refill : General Appearance: WD/WN, Other (PT LETHARGIC, CONFUSED, FIGHTING WITH ATTEMPTS AT IV ACCESS. NOT ANSWERING QUESTIONS OR FOLLOWING COMMANDS) HEENT: PERRL/EOMI Respiratory: Normal Breath Sounds, No Accessory Muscle Use, No Respiratory Distress Cardiovascular: Regular Rate, Rhythm, No Murmur Gastrointestinal: Non Tender, Soft Extremity: Normal Range of Motion, No Pedal Edema Neurologic/Psychiatric: No Motor/Sensory Deficits (GROSSLY INTACT), Other ( MENTATION ABOVE) Skin: Normal Color, Warm/Dry Progress/Results/Core Measures Suspected Sepsis SIRS Temperature: Pulse: Respiratory Rate: Laboratory Tests 06/25/17 07:00: White Blood Count 3.8L Blood Pressure / Mean: Laboratory Tests 06/25/17 07:00: Creatinine 1.24, Platelet Count 139, Total Bilirubin 0.7 Results/Orders Lab Results Laboratory Tests Test 06/25/17 07:00 06/25/17 07:03 06/25/17 08:18 06/25/17 08:59 Range/Units White Blood Count 3.8 L 4.3-11.0 10^3/uL Red Blood Count 4.22 L 4.35-5.85 10^6/uL Hemoglobin 12.8 L 13.3-17.7 G/DL Hematocrit 38 L 40-54 % Mean Corpuscular Volume 91 80-99 FL Mean Corpuscular Hemoglobin 30 25-34 PG Mean Corpuscular Hemoglobin Concent 33 32-36 G/DL Red Cell Distribution Width 15.0 H 10.0-14.5 % Platelet Count 139 130-400 10^3/uL Mean Platelet Volume 9.8 7.4-10.4 FL Neutrophils (%) (Auto) 72 42-75 % Lymphocytes (%) (Auto) 18 12-44 % Monocytes (%) (Auto) 10 0-12 % Eosinophils (%) (Auto) 0 0-10 % Basophils (%) (Auto) 0 0-10 % Neutrophils # (Auto) 2.7 1.8-7.8 X 10^3 Lymphocytes # (Auto) 0.7 L 1.0-4.0 X 10^3 Monocytes # (Auto) 0.4 0.0-1.0 X 10^3 Eosinophils # (Auto) 0.0 0.0-0.3 10^3/uL Basophils # (Auto) 0.0 0.0-0.1 10^3/uL Sodium Level 135 135-145 MMOL/L Potassium Level 4.2 3.6-5.0 MMOL/L Chloride Level 100 98-107 MMOL/L Carbon Dioxide Level 25 21-32 MMOL/L Anion Gap 10 5-14 MMOL/L Blood Urea Nitrogen 18 7-18 MG/DL Creatinine 1.24 0.60-1.30 MG/DL Estimat Glomerular Filtration Rate 59 BUN/Creatinine Ratio 15 Glucose Level 265 H 70-105 MG/DL Calcium Level 9.0 8.5-10.1 MG/DL Magnesium Level 1.8 1.8-2.4 MG/DL Total Bilirubin 0.7 0.1-1.0 MG/DL Aspartate Amino Transf (AST/SGOT) 33 5-34 U/L Alanine Aminotransferase (ALT/SGPT) 29 0-55 U/L Alkaline Phosphatase 57 40-136 U/L Total Protein 6.5 6.4-8.2 GM/DL Albumin 3.7 3.2-4.5 GM/DL Amylase Level 85 25-125 U/L Lipase 22 8-78 U/L Serum Alcohol < 10 <10 MG/DL Glucometer 206 H 234 H 70-110 MG/DL Urine Color YELLOW Urine Clarity CLEAR Urine pH 5 5-9 Urine Specific [place] 1.020 1.016-1.022 Urine Protein 1+ H NEGATIVE Urine Glucose (UA) NEGATIVE NEGATIVE Urine Ketones NEGATIVE NEGATIVE Urine Nitrite NEGATIVE NEGATIVE Urine Bilirubin NEGATIVE NEGATIVE Urine Urobilinogen NORMAL NORMAL MG/DL Urine Leukocyte Esterase NEGATIVE NEGATIVE Urine RBC (Auto) NEGATIVE NEGATIVE Urine RBC NONE /HPF Urine WBC NONE /HPF Urine Squamous Epithelial Cells RARE /HPF Urine Crystals NONE /LPF Urine Bacteria NEGATIVE /HPF Urine Casts NONE /LPF Urine Mucus NEGATIVE /LPF Urine Culture Indicated NO Urine Opiates Screen NEGATIVE NEGATIVE Urine Oxycodone Screen NEGATIVE NEGATIVE Urine Methadone Screen NEGATIVE NEGATIVE Urine Propoxyphene Screen NEGATIVE NEGATIVE Urine Barbiturates Screen NEGATIVE NEGATIVE Ur Tricyclic Antidepressants Screen NEGATIVE NEGATIVE Urine Phencyclidine Screen NEGATIVE NEGATIVE Urine Amphetamines Screen NEGATIVE NEGATIVE Urine Methamphetamines Screen NEGATIVE NEGATIVE Urine Benzodiazepines Screen NEGATIVE NEGATIVE Urine Cocaine Screen NEGATIVE NEGATIVE Urine Cannabinoids Screen NEGATIVE NEGATIVE My Orders Orders - KENDELL HERNANDEZ DO D50w (Emergency) Syringe (Dextrose 50% 5 (06/25/17 06:57) Accucheck Stat ONCE (06/25/17 07:03) Saline Lock/Iv-Start (06/25/17 07:03) Monitor-Rhythm Ecg Trace Only (06/25/17 07:03) Alcohol (06/25/17 07:03) Amylase (06/25/17 07:03) Cbc With Automated Diff (06/25/17 07:03) Comprehensive Metabolic Panel (06/25/17 07:03) Drug Screen Stat (Urine) (06/25/17 07:03) Lipase (06/25/17 07:03) Magnesium (06/25/17 07:03) Ua Culture If Indicated (06/25/17 07:03) Saline Lock/Iv-Start (06/25/17 07:03) D5 1/2 Ns 1000 Ml Iv Solution (Dextrose (06/25/17 07:15) D50w (Emergency) Syringe (Dextrose 50% 5 (06/25/17 07:15) General/Regular (06/25/17 Breakfast) Accucheck Stat ONCE (06/25/17 08:03) Medications Given in ED Current Medications Medications Dose Ordered Sig/Bonnie Route Start Time Stop Time Status Last Admin Dose Admin Dextrose 50 ml ONCE ONCE IV 06/25/17 07:15 06/25/17 07:16 DC 06/25/17 07:00 50 ML Dextrose/Sodium Chloride 1,000 ml @ 0 mls/hr ONCE ONCE IV 06/25/17 07:15 06/25/17 07:16 DC 06/25/17 07:12 1,000 MLS/HR Vital Signs/I&O Vital Sign - Last 12Hours 06/25/17 07:00 Temp 97.6 Pulse 51 Resp 18 B/P (MAP) 147/73 (97) Capillary Refill : Progress Note : Progress Note IV ACCESS OBTAINED AND PT GIVEN 1 AMP D50 IMMEDIATELY ON ARRIVAL, AND PT WITH IMMEDIATE IMPROVEMENT IN MENTATION--PT ABLE TO TALK, FOLLOW COMMANDS, NO LONGER COMBATIVE. ACCUCHECK DONE SHORTLY AFTER D50 WAS GIVEN AND WAS 206 0720--PT STATES HE ATE DINNER AND TOOK INSULIN AT 1830 THIS AM. 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 REMEMBERS FEELING LIKE HIS WHOLE FACE WAS STARTING TO GET NUMB AND TINGLY, AND IS ALL HE CAN RECALL UNTIL AFTER HE ARRIVED HERE. FEELS BACK TO NORMAL NOW. GIVEN A MEAL TRAY AND PT ATE ALL ACCUCHECK PRIOR TO DISMISSAL 234 UNEVENTFUL ER STAY--PT WITH NORMAL MENTATION AT DISMISSAL Departure Impression Impression: Primary Impression: Hypoglycemia associated with diabetes Disposition: 01 HOME, SELF-CARE Condition: Improved Departure-Patient Inst. Referrals: AMINAH MOELLER MD (PCP/Family) Primary Care Physician Patient Instructions: HYPOGLYCEMIA, Low Blood Sugar in People With Diabetes Add. Discharge Instructions: CHECK YOUR BLOOD SUGAR 4 TIMES A DAY EAT AT LEAST 3 HIGH-PROTEIN, LOW CARBOHYDRATE MEALS A DAY FOLLOW UP WITH DR. MOELLER THIS WEEK FOR FURTHER CARE KENDELL HERNANDEZ DO Jun 25, 2017 07:11
[2017-06-25] MEDS ORDERED: D5 1/2 NS 1000 ML IV SOLUTION 1,000 ML IV ONE (07:15)
[2017-06-25] MEDS ORDERED: DEXTROSE 50% 50 ML (IMS) SYR IV ONE (07:15)
[2017-06-25 07:22] LABS: BASOPHILS % (AUTO) 0 % (0-10); EOSINOPHILS % (AUTO) 0 % (0-10); HEMATOCRIT 38 % (40-54); HEMOGLOBIN 12.8 G/DL (13.3-17.7); LYMPHOCYTES # (AUTO) 0.7 X 10^3 (1.0-4.0); LYMPHOCYTES % (AUTO) 18 % (12-44); MEAN CORPUSCULAR HEMOGLOBIN 30 PG (25-34); MEAN CORPUSCULAR HGB CONC 33 G/DL (32-36); MEAN CORPUSCULAR VOLUME 91 FL (80-99); MEAN PLATELET VOLUME 9.8 FL (7.4-10.4); MONOCYTES # (AUTO) 0.4 X 10^3 (0.0-1.0); MONOCYTES % (AUTO) 10 % (0-12); NEUTROPHILS # (AUTO) 2.7 X 10^3 (1.8-7.8); NEUTROPHILS % (AUTO) 72 % (42-75); PLATELET COUNT 139 10^3/uL (130-400); RED BLOOD COUNT 4.22 10^6/uL (4.35-5.85); WHITE BLOOD COUNT 3.8 10^3/uL (4.3-11.0)
[2017-06-25 07:42] LABS: ALANINE AMINOTRANSFERASE 29 U/L (0-55); ALBUMIN 3.7 GM/DL (3.2-4.5); ALKALINE PHOSPHATASE 57 U/L (40-136); AMYLASE 85 U/L (25-125); BILIRUBIN,TOTAL 0.7 MG/DL (0.1-1.0); BUN/CREATININE RATIO 15; CARBON DIOXIDE 25 MMOL/L (21-32); CHLORIDE 100 MMOL/L (98-107); CREATININE SERUM 1.24 MG/DL (0.60-1.30); GFR ESTIMATED 59; GLUCOSE 265 MG/DL (70-105); LIPASE 22 U/L (8-78); MAGNESIUM 1.8 MG/DL (1.8-2.4); POTASSIUM 4.2 MMOL/L (3.6-5.0); SODIUM 135 MMOL/L (135-145); TOTAL PROTEIN 6.5 GM/DL (6.4-8.2)
[2017-06-25] MEDS ORDERED: [UNRECOGNIZED DRUG - OTHER] (08:03)
[2017-06-25 08:28] LABS: BILIRUBIN,URINE NEGATIVE (NEGATIVE); CLARITY,URINE CLEAR; COLOR,URINE YELLOW; GLUCOSE, URINE (UA) NEGATIVE (NEGATIVE); KETONES,URINE NEGATIVE (NEGATIVE); LEUKOCYTE ESTERASE ,URINE NEGATIVE (NEGATIVE); NITRITE,URINE NEGATIVE (NEGATIVE); PH,URINE 5 (5-9); PROTEIN,URINE 1+ (NEGATIVE); UROBILINOGEN,URINE NORMAL (NORMAL)
[2017-06-25 08:41] LABS: AMPHETAMINE SCREEN, URINE NEGATIVE (NEGATIVE); BARBITURATE SCREEN URINE NEGATIVE (NEGATIVE); BENZODIAZEPINES SCREEN URINE NEGATIVE (NEGATIVE); CANNABINOID SCREEN, URINE NEGATIVE (NEGATIVE); COCAINE SCREEN URINE NEGATIVE (NEGATIVE); METHADONE STAT NEGATIVE (NEGATIVE); METHAMPHETAMINE SCREEN URINE S NEGATIVE (NEGATIVE); OPIATE SCREEN URINE NEGATIVE (NEGATIVE); OXYCODONE STAT NEGATIVE (NEGATIVE); PROPOXYPHENE STAT NEGATIVE (NEGATIVE); TRICYCLIC ANTIDEPRESSANTS SCRE NEGATIVE (NEGATIVE)
[2017-06-25 08:51] LABS: BACTERIA,URINE NEGATIVE /HPF; SQUAMOUS EPITHELIAL CELL,UR RARE /HPF
[2017-06-25 09:35] VITALS: BP 163/99
== END 2017-06-25 09:35 | disposition home or self-care (01) ==
LOC: EDUNIT# 06:52 → ER 06:53
DX: E11.649 Type 2 diabetes mellitus with hypoglycemia without coma (principal); I10 Essential (primary) hypertension; M47.9 Spondylosis, unspecified; J42 Unspecified chronic bronchitis; F17.210 Nicotine dependence, cigarettes, uncomplicated; Z79.4 Long term (current) use of insulin; Z85.528 Personal history of other malignant neoplasm of kidney; Z85.3 Personal history of malignant neoplasm of breast; Z92.21 Personal history of antineoplastic chemotherapy; Z95.0 Presence of cardiac pacemaker; Z96.652 Presence of left artificial knee joint; Z87.01 Personal history of pneumonia (recurrent)
CPT/HCPCS: 36415; 80053; 80306; 80320; 81000; 82150; 82962; 83690; 83735; 85025; 93041; 96361; 96374

== ENCOUNTER 2017-07-04 11:37 | Outpatient (RCR) | payer BC ==
[2017-04-08 14:06] LABS: BASOPHILS % (AUTO) 0 % (0-10); EOSINOPHILS # (AUTO) 0.2 10^3/uL (0.0-0.3); EOSINOPHILS % (AUTO) 3 % (0-10); HEMATOCRIT 38 % (40-54); LYMPHOCYTES # (AUTO) 2.2 X 10^3 (1.0-4.0); LYMPHOCYTES % (AUTO) 30 % (12-44); MEAN CORPUSCULAR HEMOGLOBIN 28 PG (25-34); MEAN CORPUSCULAR HGB CONC 32 G/DL (32-36); MEAN CORPUSCULAR VOLUME 89 FL (80-99); MONOCYTES # (AUTO) 0.9 X 10^3 (0.0-1.0); MONOCYTES % (AUTO) 12 % (0-12); NEUTROPHILS # (AUTO) 4.1 X 10^3 (1.8-7.8); NEUTROPHILS % (AUTO) 55 % (42-75); PLATELET COUNT 326 10^3/uL (130-400); RED BLOOD COUNT 4.24 10^6/uL (4.35-5.85); RED CELL DISTRIBUTION WIDTH 14.8 % (10.0-14.5); WHITE BLOOD COUNT 7.4 10^3/uL (4.3-11.0)
[2017-06-05 14:47] LABS: BASOPHILS % (AUTO) 0 % (0-10); EOSINOPHILS # (AUTO) 0.2 10^3/uL (0.0-0.3); EOSINOPHILS % (AUTO) 4 % (0-10); HEMATOCRIT 37 % (40-54); HEMOGLOBIN 11.6 G/DL (13.3-17.7); LYMPHOCYTES # (AUTO) 1.6 X 10^3 (1.0-4.0); LYMPHOCYTES % (AUTO) 24 % (12-44); MEAN CORPUSCULAR HEMOGLOBIN 29 PG (25-34); MEAN CORPUSCULAR HGB CONC 32 G/DL (32-36); MEAN CORPUSCULAR VOLUME 92 FL (80-99); MEAN PLATELET VOLUME 9.3 FL (7.4-10.4); MONOCYTES # (AUTO) 0.7 X 10^3 (0.0-1.0); MONOCYTES % (AUTO) 10 % (0-12); NEUTROPHILS # (AUTO) 4.1 X 10^3 (1.8-7.8); NEUTROPHILS % (AUTO) 63 % (42-75); PLATELET COUNT 225 10^3/uL (130-400); RED BLOOD COUNT 4.02 10^6/uL (4.35-5.85); RED CELL DISTRIBUTION WIDTH 14.6 % (10.0-14.5); WHITE BLOOD COUNT 6.6 10^3/uL (4.3-11.0)
[2017-06-05 15:06] LABS: ALBUMIN 3.9 GM/DL (3.2-4.5); BILIRUBIN,TOTAL 0.7 MG/DL (0.1-1.0); CALCIUM 9.9 MG/DL (8.5-10.1); CREATININE SERUM 1.45 MG/DL (0.60-1.30); POTASSIUM 5.8 MMOL/L (3.6-5.0); TOTAL PROTEIN 6.6 GM/DL (6.4-8.2)
[2017-06-05 16:41] LABS: BILIRUBIN,URINE NEGATIVE (NEGATIVE); GLUCOSE, URINE (UA) NEGATIVE (NEGATIVE); KETONES,URINE NEGATIVE (NEGATIVE); LEUKOCYTE ESTERASE ,URINE NEGATIVE (NEGATIVE); NITRITE,URINE NEGATIVE (NEGATIVE); PH,URINE 6 (5-9); PROTEIN,URINE 1+ (NEGATIVE); UROBILINOGEN,URINE NORMAL (NORMAL)
[2017-06-05 16:49] LABS: CLARITY,URINE CLEAR; COLOR,URINE YELLOW; SQUAMOUS EPITHELIAL CELL,UR RARE /HPF
[2017-06-19 15:18] LABS: BASOPHILS % (AUTO) 0 % (0-10); EOSINOPHILS # (AUTO) 0.2 10^3/uL (0.0-0.3); EOSINOPHILS % (AUTO) 2 % (0-10); HEMATOCRIT 40 % (40-54); HEMOGLOBIN 13.1 G/DL (13.3-17.7); LYMPHOCYTES # (AUTO) 1.8 X 10^3 (1.0-4.0); LYMPHOCYTES % (AUTO) 27 % (12-44); MEAN CORPUSCULAR HEMOGLOBIN 30 PG (25-34); MEAN CORPUSCULAR HGB CONC 33 G/DL (32-36); MEAN CORPUSCULAR VOLUME 91 FL (80-99); MEAN PLATELET VOLUME 9.7 FL (7.4-10.4); MONOCYTES # (AUTO) 0.5 X 10^3 (0.0-1.0); MONOCYTES % (AUTO) 8 % (0-12); NEUTROPHILS # (AUTO) 4.3 X 10^3 (1.8-7.8); NEUTROPHILS % (AUTO) 63 % (42-75); PLATELET COUNT 236 10^3/uL (130-400); RED BLOOD COUNT 4.43 10^6/uL (4.35-5.85); RED CELL DISTRIBUTION WIDTH 14.8 % (10.0-14.5); WHITE BLOOD COUNT 6.7 10^3/uL (4.3-11.0)
[2017-06-19 15:44] LABS: BILIRUBIN,TOTAL 0.8 MG/DL (0.1-1.0); CALCIUM 10.1 MG/DL (8.5-10.1); CREATININE SERUM 1.43 MG/DL (0.60-1.30); POTASSIUM 5.4 MMOL/L (3.6-5.0); TOTAL PROTEIN 6.8 GM/DL (6.4-8.2)
[2017-06-27 15:32] LABS: BASOPHILS % (AUTO) 0 % (0-10); EOSINOPHILS % (AUTO) 1 % (0-10); HEMATOCRIT 40 % (40-54); HEMOGLOBIN 13.2 G/DL (13.3-17.7); LYMPHOCYTES # (AUTO) 1.2 X 10^3 (1.0-4.0); LYMPHOCYTES % (AUTO) 40 % (12-44); MEAN CORPUSCULAR HEMOGLOBIN 30 PG (25-34); MEAN CORPUSCULAR HGB CONC 33 G/DL (32-36); MEAN CORPUSCULAR VOLUME 91 FL (80-99); MEAN PLATELET VOLUME 9.8 FL (7.4-10.4); MONOCYTES # (AUTO) 0.4 X 10^3 (0.0-1.0); MONOCYTES % (AUTO) 14 % (0-12); NEUTROPHILS # (AUTO) 1.4 X 10^3 (1.8-7.8); NEUTROPHILS % (AUTO) 45 % (42-75); PLATELET COUNT 122 10^3/uL (130-400); RED BLOOD COUNT 4.35 10^6/uL (4.35-5.85); RED CELL DISTRIBUTION WIDTH 15.2 % (10.0-14.5)
[2017-06-27 15:53] LABS: ALBUMIN 3.8 GM/DL (3.2-4.5); BILIRUBIN,TOTAL 0.5 MG/DL (0.1-1.0); CALCIUM 8.9 MG/DL (8.5-10.1); CREATININE SERUM 1.45 MG/DL (0.60-1.30); POTASSIUM 4.9 MMOL/L (3.6-5.0); TOTAL PROTEIN 6.8 GM/DL (6.4-8.2)
[~2017-07-04 11:37] MED LIST changes: +[UNRECOGNIZED DRUG - OTHER]
[2017-07-04 11:53] LABS: BASOPHILS % (AUTO) 0 % (0-10); EOSINOPHILS % (AUTO) 0 % (0-10); HEMATOCRIT 40 % (40-54); HEMOGLOBIN 12.9 G/DL (13.3-17.7); LYMPHOCYTES # (AUTO) 1.5 X 10^3 (1.0-4.0); LYMPHOCYTES % (AUTO) 13 % (12-44); MEAN CORPUSCULAR HEMOGLOBIN 30 PG (25-34); MEAN CORPUSCULAR HGB CONC 33 G/DL (32-36); MEAN CORPUSCULAR VOLUME 91 FL (80-99); MEAN PLATELET VOLUME 9.9 FL (7.4-10.4); MONOCYTES # (AUTO) 1.4 X 10^3 (0.0-1.0); MONOCYTES % (AUTO) 12 % (0-12); NEUTROPHILS # (AUTO) 8.6 X 10^3 (1.8-7.8); NEUTROPHILS % (AUTO) 75 % (42-75); PLATELET COUNT 206 10^3/uL (130-400); RED BLOOD COUNT 4.36 10^6/uL (4.35-5.85); RED CELL DISTRIBUTION WIDTH 15.4 % (10.0-14.5); WHITE BLOOD COUNT 11.5 10^3/uL (4.3-11.0)
[2017-07-04 12:09] LABS: CALCIUM 10.4 MG/DL (8.5-10.1); CREATININE SERUM 1.82 MG/DL (0.60-1.30); POTASSIUM 5.3 MMOL/L (3.6-5.0)
[2017-07-04] MEDS ORDERED: NS IV 1000 ML (CANCER CTR) 1,000 ML ONE (15:21)
== END 2017-07-07 | disposition home or self-care (01) ==
LOC: ONC 11:37
PROVIDERS: ATTEND Internal Medicine Hematology & Oncology
DX: C64.2 Malignant neoplasm of left kidney, except renal pelvis (principal); R91.1 Solitary pulmonary nodule; E11.9 Type 2 diabetes mellitus without complications; I10 Essential (primary) hypertension; F17.210 Nicotine dependence, cigarettes, uncomplicated; Z79.4 Long term (current) use of insulin; Z79.899 Other long term (current) drug therapy
CPT/HCPCS: 36415; 80048; 80053; 81000; 83615; 84443; 85025; 93005; 96360; 96361; 99213

== ENCOUNTER → 2017-09-12 | Outpatient (CLI) | payer BC ==
[~2017-09-12] MED LIST changes: +BARIUM SUSPENSION 2.1% (VANILLA SILQ) 450 ML PO ONE; +CATHETER FLUSH 10 ML SYR IV PRN; +IOHEXOL 350 MG/ML 100 ML (OMNIPAQUE 350) VIAL IV ONE; +NS 250 ML (IVPB) BAG IV ONE
--- NOTE | 2017-09-12 16:25 | Diagnostic Imaging Report ---
PROCEDURE: CT chest, abdomen, and pelvis with contrast. TECHNIQUE: Multiple contiguous axial images were obtained through the chest, abdomen, and pelvis after the administration of intravenous contrast. INDICATION: Renal cell carcinoma. Lung cancer. FINDINGS: There is 5 mm vague parenchymal density in the right upper lobe medially. There is a 10 x 11 mm area in the right lung base which is likely atelectasis or scarring but underlying mass cannot totally be excluded. There is a 2.7 cm rounded mass in the left lower lobe. There is a 15 mm mass in the superior segment of the left lower lobe. There is 4 mm nodule in the left upper lobe. There is no effusion or pneumothorax. There are several mildly prominent mediastinal lymph nodes. The largest is a pretracheal lymph node measuring 15 x 15 mm. No bony destructive lesions are seen. IMPRESSION: There are multiple bilateral nodules. The subcentimeter upper lobe nodules in the right basilar atelectatic area are stable compared to the prior CT from 04/10/2017 exam. The nodule in the superior segment of the left lower lobe has increased in size. The larger nodule in the left lower lobe has increased in size. Dictated by: Dictated on workstation # [id number]
== END ==
LOC: RAD 14:44
PROVIDERS: ATTEND Internal Medicine Hematology & Oncology
DX: C64.9 Malignant neoplasm of unspecified kidney, except renal pelvis (principal); C78.01 Secondary malignant neoplasm of right lung
CPT/HCPCS: 71260; 74177

== ENCOUNTER → 2017-10-10 | Outpatient (RCR) | payer BC ==
[2017-07-12 09:45] LABS: BASOPHILS % (AUTO) 0 % (0-10); EOSINOPHILS # (AUTO) 0.1 10^3/uL (0.0-0.3); EOSINOPHILS % (AUTO) 2 % (0-10); HEMATOCRIT 36 % (40-54); HEMOGLOBIN 11.5 G/DL (13.3-17.7); LYMPHOCYTES # (AUTO) 1.4 X 10^3 (1.0-4.0); LYMPHOCYTES % (AUTO) 18 % (12-44); MEAN CORPUSCULAR HEMOGLOBIN 30 PG (25-34); MEAN CORPUSCULAR HGB CONC 32 G/DL (32-36); MEAN CORPUSCULAR VOLUME 94 FL (80-99); MEAN PLATELET VOLUME 9.5 FL (7.4-10.4); MONOCYTES # (AUTO) 0.6 X 10^3 (0.0-1.0); MONOCYTES % (AUTO) 8 % (0-12); NEUTROPHILS # (AUTO) 5.6 X 10^3 (1.8-7.8); NEUTROPHILS % (AUTO) 72 % (42-75); PLATELET COUNT 295 10^3/uL (130-400); RED CELL DISTRIBUTION WIDTH 15.5 % (10.0-14.5); WHITE BLOOD COUNT 7.8 10^3/uL (4.3-11.0)
[2017-07-12 10:04] LABS: ALANINE AMINOTRANSFERASE 21 U/L (0-55); ALBUMIN 3.2 GM/DL (3.2-4.5); ALKALINE PHOSPHATASE 62 U/L (40-136); BILIRUBIN,TOTAL 0.4 MG/DL (0.1-1.0); BUN/CREATININE RATIO 20; CALCIUM 9.4 MG/DL (8.5-10.1); CARBON DIOXIDE 26 MMOL/L (21-32); CHLORIDE 107 MMOL/L (98-107); CREATININE SERUM 1.11 MG/DL (0.60-1.30); GFR ESTIMATED > 60; GLUCOSE 83 MG/DL (70-105); SODIUM 141 MMOL/L (135-145); TOTAL PROTEIN 6.7 GM/DL (6.4-8.2)
[2017-07-19 11:08] LABS: BASOPHILS % (AUTO) 0 % (0-10); EOSINOPHILS # (AUTO) 0.1 10^3/uL (0.0-0.3); EOSINOPHILS % (AUTO) 1 % (0-10); HEMATOCRIT 37 % (40-54); HEMOGLOBIN 12.3 G/DL (13.3-17.7); LYMPHOCYTES # (AUTO) 1.6 X 10^3 (1.0-4.0); LYMPHOCYTES % (AUTO) 25 % (12-44); MEAN CORPUSCULAR HEMOGLOBIN 31 PG (25-34); MEAN CORPUSCULAR HGB CONC 33 G/DL (32-36); MEAN CORPUSCULAR VOLUME 93 FL (80-99); MEAN PLATELET VOLUME 8.9 FL (7.4-10.4); MONOCYTES # (AUTO) 0.6 X 10^3 (0.0-1.0); MONOCYTES % (AUTO) 9 % (0-12); NEUTROPHILS % (AUTO) 64 % (42-75); PLATELET COUNT 322 10^3/uL (130-400); RED CELL DISTRIBUTION WIDTH 15.7 % (10.0-14.5); WHITE BLOOD COUNT 6.2 10^3/uL (4.3-11.0)
[2017-07-19 11:32] LABS: ALANINE AMINOTRANSFERASE 19 U/L (0-55); ALBUMIN 3.6 GM/DL (3.2-4.5); ALKALINE PHOSPHATASE 60 U/L (40-136); BILIRUBIN,TOTAL 0.5 MG/DL (0.1-1.0); BUN/CREATININE RATIO 13; CALCIUM 9.3 MG/DL (8.5-10.1); CARBON DIOXIDE 31 MMOL/L (21-32); CHLORIDE 98 MMOL/L (98-107); CREATININE SERUM 1.21 MG/DL (0.60-1.30); GFR ESTIMATED > 60; GLUCOSE 124 MG/DL (70-105); POTASSIUM 4.8 MMOL/L (3.6-5.0); SODIUM 139 MMOL/L (135-145); TOTAL PROTEIN 6.6 GM/DL (6.4-8.2)
[2017-07-25 15:30] LABS: BASOPHILS % (AUTO) 0 % (0-10); EOSINOPHILS # (AUTO) 0.2 10^3/uL (0.0-0.3); EOSINOPHILS % (AUTO) 3 % (0-10); HEMATOCRIT 39 % (40-54); HEMOGLOBIN 12.5 G/DL (13.3-17.7); LYMPHOCYTES # (AUTO) 1.7 X 10^3 (1.0-4.0); LYMPHOCYTES % (AUTO) 30 % (12-44); MEAN CORPUSCULAR HEMOGLOBIN 31 PG (25-34); MEAN CORPUSCULAR HGB CONC 32 G/DL (32-36); MEAN CORPUSCULAR VOLUME 95 FL (80-99); MEAN PLATELET VOLUME 9.2 FL (7.4-10.4); MONOCYTES # (AUTO) 0.4 X 10^3 (0.0-1.0); MONOCYTES % (AUTO) 7 % (0-12); NEUTROPHILS # (AUTO) 3.4 X 10^3 (1.8-7.8); NEUTROPHILS % (AUTO) 60 % (42-75); PLATELET COUNT 250 10^3/uL (130-400); RED BLOOD COUNT 4.09 10^6/uL (4.35-5.85); RED CELL DISTRIBUTION WIDTH 16.8 % (10.0-14.5); WHITE BLOOD COUNT 5.6 10^3/uL (4.3-11.0)
[2017-07-25 15:52] LABS: ALBUMIN 3.8 GM/DL (3.2-4.5); BILIRUBIN,TOTAL 0.7 MG/DL (0.1-1.0); CALCIUM 9.6 MG/DL (8.5-10.1); CREATININE SERUM 1.44 MG/DL (0.60-1.30); POTASSIUM 4.7 MMOL/L (3.6-5.0)
[2017-08-08 15:24] LABS: BASOPHILS % (AUTO) 0 % (0-10); EOSINOPHILS # (AUTO) 0.1 10^3/uL (0.0-0.3); EOSINOPHILS % (AUTO) 2 % (0-10); HEMATOCRIT 40 % (40-54); LYMPHOCYTES # (AUTO) 1.9 X 10^3 (1.0-4.0); LYMPHOCYTES % (AUTO) 32 % (12-44); MEAN CORPUSCULAR HEMOGLOBIN 31 PG (25-34); MEAN CORPUSCULAR HGB CONC 32 G/DL (32-36); MEAN CORPUSCULAR VOLUME 97 FL (80-99); MEAN PLATELET VOLUME 9.9 FL (7.4-10.4); MONOCYTES # (AUTO) 0.5 X 10^3 (0.0-1.0); MONOCYTES % (AUTO) 9 % (0-12); NEUTROPHILS # (AUTO) 3.4 X 10^3 (1.8-7.8); NEUTROPHILS % (AUTO) 57 % (42-75); PLATELET COUNT 155 10^3/uL (130-400); RED BLOOD COUNT 4.17 10^6/uL (4.35-5.85)
[2017-08-08 15:43] LABS: BILIRUBIN,TOTAL 0.8 MG/DL (0.1-1.0); CALCIUM 10.1 MG/DL (8.5-10.1); CREATININE SERUM 1.47 MG/DL (0.60-1.30); POTASSIUM 5.2 MMOL/L (3.6-5.0)
[2017-08-22 15:36] LABS: BASOPHILS % (AUTO) 0 % (0-10); EOSINOPHILS # (AUTO) 0.1 10^3/uL (0.0-0.3); EOSINOPHILS % (AUTO) 2 % (0-10); HEMATOCRIT 41 % (40-54); HEMOGLOBIN 13.4 G/DL (13.3-17.7); LYMPHOCYTES # (AUTO) 1.9 X 10^3 (1.0-4.0); LYMPHOCYTES % (AUTO) 35 % (12-44); MEAN CORPUSCULAR HEMOGLOBIN 32 PG (25-34); MEAN CORPUSCULAR HGB CONC 33 G/DL (32-36); MEAN CORPUSCULAR VOLUME 97 FL (80-99); MEAN PLATELET VOLUME 9.8 FL (7.4-10.4); MONOCYTES # (AUTO) 0.5 X 10^3 (0.0-1.0); MONOCYTES % (AUTO) 10 % (0-12); NEUTROPHILS # (AUTO) 2.8 X 10^3 (1.8-7.8); NEUTROPHILS % (AUTO) 53 % (42-75); PLATELET COUNT 183 10^3/uL (130-400); RED BLOOD COUNT 4.21 10^6/uL (4.35-5.85); RED CELL DISTRIBUTION WIDTH 16.7 % (10.0-14.5); WHITE BLOOD COUNT 5.3 10^3/uL (4.3-11.0)
[2017-08-22 15:52] LABS: ALBUMIN 4.2 GM/DL (3.2-4.5); BILIRUBIN,TOTAL 1.1 MG/DL (0.1-1.0); CALCIUM 10.1 MG/DL (8.5-10.1); CREATININE SERUM 1.65 MG/DL (0.60-1.30); POTASSIUM 5.8 MMOL/L (3.6-5.0); TOTAL PROTEIN 6.9 GM/DL (6.4-8.2)
[2017-08-26 16:01] LABS: CALCIUM 8.9 MG/DL (8.5-10.1); CREATININE SERUM 1.34 MG/DL (0.60-1.30); POTASSIUM 4.9 MMOL/L (3.6-5.0)
[2017-09-19 15:27] LABS: BASOPHILS % (AUTO) 0 % (0-10); EOSINOPHILS # (AUTO) 0.2 10^3/uL (0.0-0.3); EOSINOPHILS % (AUTO) 2 % (0-10); HEMATOCRIT 39 % (40-54); HEMOGLOBIN 12.4 G/DL (13.3-17.7); LYMPHOCYTES # (AUTO) 1.4 X 10^3 (1.0-4.0); LYMPHOCYTES % (AUTO) 16 % (12-44); MEAN CORPUSCULAR HEMOGLOBIN 32 PG (25-34); MEAN CORPUSCULAR HGB CONC 32 G/DL (32-36); MEAN CORPUSCULAR VOLUME 101 FL (80-99); MEAN PLATELET VOLUME 9.5 FL (7.4-10.4); MONOCYTES # (AUTO) 0.8 X 10^3 (0.0-1.0); MONOCYTES % (AUTO) 9 % (0-12); NEUTROPHILS # (AUTO) 6.6 X 10^3 (1.8-7.8); NEUTROPHILS % (AUTO) 73 % (42-75); PLATELET COUNT 228 10^3/uL (130-400); RED BLOOD COUNT 3.88 10^6/uL (4.35-5.85); RED CELL DISTRIBUTION WIDTH 15.3 % (10.0-14.5); WHITE BLOOD COUNT 9.1 10^3/uL (4.3-11.0)
[2017-09-19 15:44] LABS: BILIRUBIN,TOTAL 0.7 MG/DL (0.1-1.0); CALCIUM 9.3 MG/DL (8.5-10.1); CREATININE SERUM 1.45 MG/DL (0.60-1.30); POTASSIUM 4.7 MMOL/L (3.6-5.0); TOTAL PROTEIN 6.7 GM/DL (6.4-8.2)
[~2017-10-10] MED LIST changes: -BARIUM SUSPENSION 2.1% (VANILLA SILQ) 450 ML PO ONE; -CATHETER FLUSH 10 ML SYR IV PRN; -IOHEXOL 350 MG/ML 100 ML (OMNIPAQUE 350) VIAL IV ONE; -METF500T4 PO; +METF500T5 PO; +NIVOLUMAB 200 MG, NIVOLUMAB 40 MG in NS (IVPB) CANCER CENTER 50 ML IV SCH; +NS (IVPB) CANCER CENTER 250 ML ONE; -NS 250 ML (IVPB) BAG IV ONE; +NS IV 1000 ML (CANCER CTR) 1,000 ML ONE; +NS IV 500 ML (CANCER CENTER) IV SCH; +PEMBROLIZUMAB 200 MG in NS (IVPB) CANCER CENTER 50 ML IV SCH
[2017-10-10 15:31] LABS: BASOPHILS % (AUTO) 0 % (0-10); EOSINOPHILS # (AUTO) 0.3 10^3/uL (0.0-0.3); EOSINOPHILS % (AUTO) 5 % (0-10); HEMATOCRIT 38 % (40-54); HEMOGLOBIN 11.7 G/DL (13.3-17.7); LYMPHOCYTES # (AUTO) 1.8 X 10^3 (1.0-4.0); LYMPHOCYTES % (AUTO) 29 % (12-44); MEAN CORPUSCULAR HGB CONC 31 G/DL (32-36); MEAN CORPUSCULAR VOLUME 102 FL (80-99); MEAN PLATELET VOLUME 9.9 FL (7.4-10.4); MONOCYTES # (AUTO) 0.6 X 10^3 (0.0-1.0); MONOCYTES % (AUTO) 10 % (0-12); NEUTROPHILS # (AUTO) 3.5 X 10^3 (1.8-7.8); NEUTROPHILS % (AUTO) 56 % (42-75); PLATELET COUNT 216 10^3/uL (130-400); RED BLOOD COUNT 3.72 10^6/uL (4.35-5.85); RED CELL DISTRIBUTION WIDTH 13.5 % (10.0-14.5); WHITE BLOOD COUNT 6.3 10^3/uL (4.3-11.0)
[2017-10-10 15:33] LABS: MEAN CORPUSCULAR HEMOGLOBIN 31 PG (25-34)
[2017-10-10 15:59] LABS: ALBUMIN 4.1 GM/DL (3.2-4.5); BILIRUBIN,TOTAL 0.5 MG/DL (0.1-1.0); CALCIUM 9.9 MG/DL (8.5-10.1); CREATININE SERUM 1.33 MG/DL (0.60-1.30); POTASSIUM 4.9 MMOL/L (3.6-5.0); TOTAL PROTEIN 6.9 GM/DL (6.4-8.2)
== END | disposition home or self-care (01) ==
LOC: ONC 07-12 09:37
PROVIDERS: ATTEND Internal Medicine Hematology & Oncology
DX: C64.2 Malignant neoplasm of left kidney, except renal pelvis (principal); R91.1 Solitary pulmonary nodule; E11.9 Type 2 diabetes mellitus without complications; I10 Essential (primary) hypertension; F17.210 Nicotine dependence, cigarettes, uncomplicated; Z79.4 Long term (current) use of insulin; Z79.899 Other long term (current) drug therapy
CPT/HCPCS: 36415; 80048; 80053; 84443; 85025; 87324; 87449; 96360; 96413; 99213

== ENCOUNTER 2018-02-26 15:09 | Outpatient (RCR) | payer BC ==
[2018-01-30 15:31] LABS: BASOPHILS % (AUTO) 0 % (0-10); EOSINOPHILS # (AUTO) 0.5 10^3/uL (0.0-0.3); EOSINOPHILS % (AUTO) 7 % (0-10); HEMATOCRIT 39 % (40-54); HEMOGLOBIN 12.4 G/DL (13.3-17.7); LYMPHOCYTES # (AUTO) 1.7 X 10^3 (1.0-4.0); LYMPHOCYTES % (AUTO) 25 % (12-44); MEAN CORPUSCULAR HEMOGLOBIN 31 PG (25-34); MEAN CORPUSCULAR HGB CONC 32 G/DL (32-36); MEAN CORPUSCULAR VOLUME 98 FL (80-99); MEAN PLATELET VOLUME 10.1 FL (7.4-10.4); MONOCYTES # (AUTO) 0.7 X 10^3 (0.0-1.0); MONOCYTES % (AUTO) 11 % (0-12); NEUTROPHILS # (AUTO) 3.8 X 10^3 (1.8-7.8); NEUTROPHILS % (AUTO) 57 % (42-75); PLATELET COUNT 215 10^3/uL (130-400); RED BLOOD COUNT 4.03 10^6/uL (4.35-5.85); RED CELL DISTRIBUTION WIDTH 14.2 % (10.0-14.5); WHITE BLOOD COUNT 6.6 10^3/uL (4.3-11.0)
[2018-01-30 15:46] LABS: ALBUMIN 4.2 GM/DL (3.2-4.5); BILIRUBIN,TOTAL 0.5 MG/DL (0.1-1.0); CALCIUM 10.1 MG/DL (8.5-10.1); CREATININE SERUM 1.57 MG/DL (0.60-1.30); POTASSIUM 5.3 MMOL/L (3.6-5.0); TOTAL PROTEIN 7.1 GM/DL (6.4-8.2)
[~2018-02-26] VITALS: Ht 188 cm; Wt 95.3 kg
[~2018-02-26 15:09] MED LIST changes: +METF-397 PO; -METF500T5 PO; -NIVOLUMAB 200 MG, NIVOLUMAB 40 MG in NS (IVPB) CANCER CENTER 50 ML IV SCH; +NIVOLUMAB 480 MG in NS (IVPB) CANCER CENTER 50 ML IV SCH; +NIVOLUMAB IV SCH; +NS (IVPB) CANCER CENTER 250 ML IV SCH; -NS (IVPB) CANCER CENTER 250 ML ONE; -NS IV 1000 ML (CANCER CTR) 1,000 ML ONE; -NS IV 500 ML (CANCER CENTER) IV SCH; +NS IV SCH; -PEMBROLIZUMAB 200 MG in NS (IVPB) CANCER CENTER 50 ML IV SCH
[2018-02-26 15:26] LABS: BASOPHILS % (AUTO) 0 % (0-10); EOSINOPHILS # (AUTO) 0.3 10^3/uL (0.0-0.3); EOSINOPHILS % (AUTO) 4 % (0-10); HEMATOCRIT 38 % (40-54); HEMOGLOBIN 12.3 G/DL (13.3-17.7); LYMPHOCYTES # (AUTO) 1.9 X 10^3 (1.0-4.0); LYMPHOCYTES % (AUTO) 26 % (12-44); MEAN CORPUSCULAR HEMOGLOBIN 32 PG (25-34); MEAN CORPUSCULAR HGB CONC 33 G/DL (32-36); MEAN CORPUSCULAR VOLUME 97 FL (80-99); MEAN PLATELET VOLUME 9.5 FL (7.4-10.4); MONOCYTES # (AUTO) 0.9 X 10^3 (0.0-1.0); MONOCYTES % (AUTO) 12 % (0-12); NEUTROPHILS # (AUTO) 4.3 X 10^3 (1.8-7.8); NEUTROPHILS % (AUTO) 58 % (42-75); PLATELET COUNT 198 10^3/uL (130-400); RED BLOOD COUNT 3.88 10^6/uL (4.35-5.85); RED CELL DISTRIBUTION WIDTH 14.1 % (10.0-14.5); WHITE BLOOD COUNT 7.3 10^3/uL (4.3-11.0)
[2018-02-26 15:47] LABS: ALBUMIN 4.1 GM/DL (3.2-4.5); BILIRUBIN,TOTAL 0.5 MG/DL (0.1-1.0); CALCIUM 9.9 MG/DL (8.5-10.1); CREATININE SERUM 1.36 MG/DL (0.60-1.30); MAGNESIUM 1.8 MG/DL (1.8-2.4); TOTAL PROTEIN 6.7 GM/DL (6.4-8.2)
== END 2018-03-27 09:33 | disposition home or self-care (01) ==
LOC: ONC 15:09
PROVIDERS: ATTEND Internal Medicine Hematology & Oncology
DX: Z51.11 Encounter for antineoplastic chemotherapy (principal); C64.2 Malignant neoplasm of left kidney, except renal pelvis; R91.1 Solitary pulmonary nodule; E11.9 Type 2 diabetes mellitus without complications; I10 Essential (primary) hypertension; F17.210 Nicotine dependence, cigarettes, uncomplicated; Z79.4 Long term (current) use of insulin; Z79.899 Other long term (current) drug therapy
CPT/HCPCS: 36415; 80053; 83735; 84443; 85025; 96413

== ENCOUNTER → 2018-03-21 | Outpatient (CLI) | payer BC ==
[~2018-03-21] MED LIST changes: +BARIUM SUSPENSION 2.1% (VANILLA SILQ) 450 ML PO ONE; +IOHEXOL 350 MG/ML 100 ML (OMNIPAQUE 350) VIAL IV ONE; -NIVOLUMAB 480 MG in NS (IVPB) CANCER CENTER 50 ML IV SCH; -NIVOLUMAB IV SCH; -NS (IVPB) CANCER CENTER 250 ML IV SCH; +NS 250 ML (IVPB) BAG IV ONE; -NS IV SCH
--- NOTE | 2018-03-21 12:39 | Diagnostic Imaging Report ---
PROCEDURE: CT chest with contrast, CT abdomen and pelvis with and without contrast. TECHNIQUE: Pre and post intravenous contrast axial imaging of the abdomen and pelvis and post contrast axial imaging of the chest were performed. INDICATION: Renal cell carcinoma. FINDINGS: The previous CT chest, abdomen and pelvis exam of 09/12/2017 noted a 2.7 cm rounded mass in the left lower lobe and a 1.5 cm mass in the superior segment. Both of those masses have decreased in size since the prior study. The mass in the left lower lobe now measures 1.9 cm while the mass in the superior segment of the left lower lobe is estimated to be 0.6 cm in size. The 0.4 cm nodule in the left upper lobe seen previously is barely visible on this exam. At the most, this measures 0.2 cm. The previous exam also identified a 0.5 cm nodule in the medial aspect of the right upper lobe. That finding cannot be identified on this exam. The poorly defined area of increased density near the right hemidiaphragm measuring 1.1 cm previously is also much less prominent. There is still a vague area of increased density in this region but there is no discrete mass. The lungs are otherwise generally clear. The chronic pulmonary changes seen previously are again visualized and no different. The heart is stable in size. The aorta is not abnormally dilated and there is no sign of a dissection. There is no definite defect within the pulmonary arteries to indicate a pulmonary embolus. There are a few small mediastinal nodes. These seem similar to the prior exam. The largest node is in the right pretracheal region and measures 1.6 cm. On the prior exam, this measured 1.5 cm. The 6.7 cm hiatal hernia seen previously is again evident and no different. The thyroid gland is generally unremarkable. The sections through the abdomen and pelvis show no sign of an acute abnormality. The liver is homogeneous and not enlarged. As noted on the prior exam, there is air in the biliary tree. The spleen, the pancreas, the right adrenal gland, the right kidney, the aorta and inferior vena cava show no sign of an acute abnormality. There is no evidence for a mass in the renal fossa on the left to suggest recurrent neoplasm. There is no pelvic mass or free fluid collection evident. There are innumerable diverticula in the sigmoid colon. There is no sign of acute diverticulitis. The appendix was visualized and is not abnormally thickened. The bone windows show no evidence for a fracture or for a destructive lesion. IMPRESSION: 1. The appearance of the chest has improved since the prior exam as the parenchymal lung masses have either decreased in size or essentially resolved. There is no acute cardiopulmonary abnormality noted. 2. There is no acute abnormality of the abdomen or pelvis. 3. There is no sign of a mass in the left renal fossa to suggest recurrent neoplasm. Dictated by: Dictated on workstation # [id number]
== END ==
LOC: RAD 10:46
PROVIDERS: ATTEND Internal Medicine Hematology & Oncology
DX: C64.9 Malignant neoplasm of unspecified kidney, except renal pelvis (principal); C78.01 Secondary malignant neoplasm of right lung
CPT/HCPCS: 71260; 74178

== ENCOUNTER 2018-03-28 09:56 | Outpatient (RCR) | payer BC ==
[~2018-03-28] VITALS: Ht 188 cm; Wt 95.7 kg
[~2018-03-28 09:56] MED LIST changes: -BARIUM SUSPENSION 2.1% (VANILLA SILQ) 450 ML PO ONE; -IOHEXOL 350 MG/ML 100 ML (OMNIPAQUE 350) VIAL IV ONE; +NIVOLUMAB 480 MG in NS (IVPB) CANCER CENTER 50 ML IV SCH; +NIVOLUMAB IV SCH; +NS (IVPB) CANCER CENTER 250 ML IV SCH; -NS 250 ML (IVPB) BAG IV ONE; +NS IV SCH
[2018-03-28 10:18] LABS: BASOPHILS % (AUTO) 0 % (0-10); EOSINOPHILS # (AUTO) 0.2 10^3/uL (0.0-0.3); EOSINOPHILS % (AUTO) 2 % (0-10); HEMATOCRIT 40 % (40-54); HEMOGLOBIN 12.7 G/DL (13.3-17.7); LYMPHOCYTES # (AUTO) 1.3 X 10^3 (1.0-4.0); LYMPHOCYTES % (AUTO) 17 % (12-44); MEAN CORPUSCULAR HEMOGLOBIN 30 PG (25-34); MEAN CORPUSCULAR HGB CONC 31 G/DL (32-36); MEAN CORPUSCULAR VOLUME 97 FL (80-99); MEAN PLATELET VOLUME 9.7 FL (7.4-10.4); MONOCYTES # (AUTO) 0.7 X 10^3 (0.0-1.0); MONOCYTES % (AUTO) 10 % (0-12); NEUTROPHILS # (AUTO) 5.2 X 10^3 (1.8-7.8); NEUTROPHILS % (AUTO) 71 % (42-75); PLATELET COUNT 247 10^3/uL (130-400); RED BLOOD COUNT 4.18 10^6/uL (4.35-5.85); RED CELL DISTRIBUTION WIDTH 14.3 % (10.0-14.5); WHITE BLOOD COUNT 7.4 10^3/uL (4.3-11.0)
[2018-03-28 10:35] LABS: ALBUMIN 4.1 GM/DL (3.2-4.5); BILIRUBIN,TOTAL 0.6 MG/DL (0.1-1.0); CALCIUM 9.5 MG/DL (8.5-10.1); CREATININE SERUM 1.4 MG/DL (0.60-1.30); MAGNESIUM 1.8 MG/DL (1.8-2.4); POTASSIUM 5.3 MMOL/L (3.6-5.0); TOTAL PROTEIN 6.8 GM/DL (6.4-8.2)
== END 2018-04-23 13:11 | disposition home or self-care (01) ==
LOC: ONC 09:56
PROVIDERS: ATTEND Internal Medicine Hematology & Oncology
DX: Z51.81 Encounter for therapeutic drug level monitoring (principal); C64.9 Malignant neoplasm of unspecified kidney, except renal pelvis; C78.01 Secondary malignant neoplasm of right lung
CPT/HCPCS: 36415; 80053; 83735; 84443; 85025; 96413

== ENCOUNTER 2018-05-07 16:40 | Inpatient (IN) | payer BC ==
[~2018-05-07] VITALS: Ht 193 cm; Wt 92.2 kg
[2018-05-07] VITALS (9 sets, daily range): BP systolic 93–126; BP diastolic 52–73
[~2018-05-07 16:40] MED LIST changes: -NIVOLUMAB 480 MG in NS (IVPB) CANCER CENTER 50 ML IV SCH; -NIVOLUMAB IV SCH; -NS (IVPB) CANCER CENTER 250 ML IV SCH; -NS IV SCH
--- OUTSIDE RECORDS SUMMARY | 2018-05-07 16:45 | XMS REPORT | Clinical Summary ---
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 If you do not see the information that you expected, contact Release of Information in the Health Information Management department at [phone] for further assistance in locating additional records.[facility] Allergies No Known Allergies Current Medications Prescription [...] Dose. Focus factor 1 Active capsule daily. [id number] Take 1 Cap by mouth Active -Astx [...] Incidentally detected on spine MRI September 2016. [id number] mass. 1.1cm right lower lobe lung nodule along with slightly enlarged right hilar and infracarinal lymph nodes. Asymptomatic. 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 Margins negative. 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 06/07/17: Large left lower lobe lung nodule biopsied as RCC by medical oncology at [facility] and is scheduled to start Pazopanib soon. 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 WORKER Temperature 36.9 C (98.4 F) 03/01/2017 12:20 PM CDT Respiratory Rate 18 03/01/2017 12:20 PM CDT Oxygen Saturation 94% 03/01/2017 12:20 PM CDT Inhaled Oxygen - - Concentration Weight 94.3 kg (208 lb) 06/07/2017 10:49 AM MOVING WORKER Height 193 cm (6' 4") 06/07/2017 10:49 AM MOVING WORKER Body Mass Index 25.32 06/07/2017 10:49 AM MOVING WORKER Plan of Treatment Health Maintenance Due Date Last Done Comments HEPATITIS C SCREENING 1955 PHYSICAL (COMPREHENSIVE) 1962 EXAM HIV SCREENING 1970 DTAP/TDAP VACCINES (1 - 1973 Tdap) COLORECTAL CANCER 2005 SCREENING SHINGLES RECOMBINANT 2005 VACCINE (1 of 2) INFLUENZA VACCINE 01/01/2018 06/12/2013 Results Not on filefrom Last 3 Months
--- OUTSIDE RECORDS SUMMARY | 2018-05-07 16:48 | XMS REPORT | Continuity of Care Document ---
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 06/25/2017 DANIEL GARLAND DO Ot 715.36 LOC OSTEOARTH NOS-L/LEG 06/25/2017 DANIEL GARLAND DO Ot V72.63 PRE-PROCEDURAL LABORATORY EXAMINATION 06/25/2017 DANIEL GARLAND DO Ot V72.81 [id number] CARDIOVASCULAR 06/25/2017 DANIEL GARLAND DO Ot V72.83 EXAM PRE-OPERATIVE NEC 06/25/2017 DANIEL GARLAND DO Ot V72.84 EXAM PRE-OPERATIVE NOS 06/25/2017 DANIEL GARLAND DO Ot V74.8 SCREEN-BACTERIAL DIS NEC 06/25/2017 DANIEL GARLAND DO Ot V43.65 KNEE JOINT REPLACEMENT STATUS 06/25/2017 DANIEL GARLAND DO Ot V58.61 ANTICOAGULANTS,LT,CURRENT USE 06/25/2017 DANIEL GARLAND DO Ot V58.83 ENCOUNTER FOR THERAPEUTIC DRUG MONITORIN 06/25/2017 KAROLINA BNODS [employer]AR [employer] SUPERVISOR Ot 719.06 JOINT EFFUSION-L/LEG 06/25/2017 KAROLINA BONDS [employer] SUPERVISOR Ot 719.46 JOINT PAIN-L/LEG 06/25/2017 KAROLINA BONDS [employer] SUPERVISOR Ot V43.65 KNEE JOINT REPLACEMENT STATUS 06/25/2017 DANIEL GARLAND DO Ot M25.561 PAIN IN RIGHT KNEE 06/25/2017 DANIEL GARLAND DO Ot M25.562 PAIN IN LEFT KNEE 06/25/2017 DANIEL GARLAND DO Ot Z96.653 PRESENCE OF ARTIFICIAL KNEE JOINT, BILAT 06/25/2017 KAROLINA BONDS [employer] SUPERVISOR Ot M25.561 PAIN IN RIGHT KNEE 06/25/2017 KAROLINA BONDS [employer] SUPERVISOR Ot M25.562 PAIN IN LEFT KNEE 06/25/2017 KAROLINA BONDS [employer] SUPERVISOR Ot M79.1 MYALGIA 06/25/2017 DANIEL GARLAND DO Ot M48.06 SPINAL STENOSIS, LUMBAR REGION 06/25/2017 DANIEL GARLAND DO Ot M51.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 DISC DEGENERATION, 06/25/2017 SONIA WILDER, OMEGA Meyer Ot I70.213 ATHSCL [place] ARTERIES OF EXTRM W INTRMT 06/25/2017 OMEGA SCOTT MD Ot M54.14 RADICULOPATHY, THORACIC REGION 06/25/2017 OMEGA SCOTT MD Ot M54.2 CERVICALGIA 06/25/2017 NADER WILDER, VIOLET Ot N28.89 OTHER SPECIFIED DISORDERS OF KIDNEY AND 06/25/2017 NADER WILDER, VIOLET Ot R91.8 OTHER NONSPECIFIC ABNORMAL FINDING OF KAIN 06/25/2017 ARABELLA BILLY MD Ot 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 NEOPLASM OF LEFT KIDNEY, EXCEP 06/25/2017 ARABELLA BILLY MD Ot E11.9 TYPE 2 DIABETES MELLITUS WITHOUT COMPLIC 06/25/2017 ARABELLA BILLY MD Ot F17.210 NICOTINE DEPENDENCE, CIGARETTES, UNCOMPL 06/25/2017 ARABELLA BILLY MD Ot I10 ESSENTIAL (PRIMARY) HYPERTENSION 06/25/2017 ARABELLA BILLY MD, Ot R91.1 SOLITARY PULMONARY NODULE 06/25/2017 ARABELLA BILLY MD, Ot Z79.4 SNF (CURRENT) USE OF INSULIN 06/25/2017 ARABELLA BILLY MD, Ot Z79.899 OTHER GROCERY SACKER (CURRENT) DRUG THERAPY 06/25/2017 BEREKET MARTINEZ MD, Ot 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 NEOPLASM OF LEFT KIDNEY, EXCEP 06/25/2017 BEREKET MARTINEZ MD, Ot 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 06/25/2017 BEREKET MARTINEZ MD, Ot R91.8 OTHER NONSPECIFIC ABNORMAL FINDING OF KAIN 06/25/2017 BEREKET MARTINEZ MD, Ot Z90.49 ACQUIRED ABSENCE OF OTHER SPECIFIED PART 06/25/2017 BEREKET MARTINEZ MD, Ot Z90.5 ACQUIRED ABSENCE OF KIDNEY 06/25/2017 ARABELLA BILLY MD, Ot K44.9 DIAPHRAGMATIC HERNIA WITHOUT OBSTRUCTION 06/25/2017 ARABELLA BILLY MD, Ot K57.30 DVRTCLOS OF LG INT W/O PERFORATION OR AB 06/25/2017 ARABELLA BILLY MD, Ot R91.8 OTHER NONSPECIFIC ABNORMAL FINDING OF KAIN 06/25/2017 ARABELLA BILLY MD, Ot Z85.528 PERSONAL HISTORY OF OTHER MALIGNANT NEOP 06/25/2017 ARABELLA BILLY MD, Ot Z90.5 ACQUIRED ABSENCE OF KIDNEY 06/25/2017 DAVID DO KENDELL K Ot E11.649 TYPE 2 DIABETES MELLITUS WITH HYPOGLYCEM 06/25/2017 DAVID BRANDT KENDELL K Ot F17.210 NICOTINE DEPENDENCE, CIGARETTES, UNCOMPL 06/25/2017 DAVID DO, KENDELL K Ot I10 ESSENTIAL (PRIMARY) HYPERTENSION 06/25/2017 DAVID DO KENDELL K Ot J42 UNSPECIFIED CHRONIC BRONCHITIS 06/25/2017 DAVID BRANDT KENDELL K Ot M47.9 SPONDYLOSIS, UNSPECIFIED 06/25/2017 DAVID DO KENDELL K Ot R73.09 OTHER ABNORMAL GLUCOSE 06/25/2017 DAVID BRANDT KENDELL K Ot Z79.4 GROCERY SACKER (CURRENT) USE OF INSULIN 06/25/2017 DAVID BRANDT KENDELL K Ot Z85.3 PERSONAL HISTORY OF MALIGNANT NEOPLASM O 06/25/2017 DAVID DO, KENDELL K Ot Z85.528 PERSONAL HISTORY OF OTHER MALIGNANT NEOP 06/25/2017 DAVID DO, KENDELL K Ot Z87.01 PERSONAL HISTORY OF PNEUMONIA (RECURRENT 06/25/2017 [facility], KENDELL K Ot Z92.21 PERSONAL HISTORY OF ANTINEOPLASTIC CHEMO 06/25/2017 [place] DO, KENDELL K Ot Z95.0 PRESENCE OF CARDIAC PACEMAKER 06/25/2017 DAVID DO, KENDELL K Ot Z96.652 PRESENCE OF LEFT ARTIFICIAL KNEE JOINT 06/27/2017 DAVID DO, KENDELL K Ot E11.649 TYPE 2 DIABETES MELLITUS WITH HYPOGLYCEM 06/27/2017 [place] DO, KENDELL K Ot F17.210 NICOTINE DEPENDENCE, CIGARETTES, UNCOMPL 06/27/2017 [place] DO, KENDELL K Ot I10 ESSENTIAL (PRIMARY) HYPERTENSION 06/27/2017 [facility], KENDELL K Ot J42 UNSPECIFIED CHRONIC BRONCHITIS 06/27/2017 [facility] KENDELL K Ot M47.9 SPONDYLOSIS, UNSPECIFIED 06/27/2017 [facility] KENDELL K Ot R73.09 OTHER ABNORMAL GLUCOSE 06/27/2017 [facility], KENDELL K Ot Z79.4 GROCERY SACKER (CURRENT) USE OF INSULIN 06/27/2017 [facility] KENDELL K Ot Z85.3 PERSONAL HISTORY OF MALIGNANT NEOPLASM O 06/27/2017 [facility] KENDELL K Ot Z85.528 PERSONAL HISTORY OF OTHER MALIGNANT NEOP 06/27/2017 [facility], KENDELL K Ot Z87.01 PERSONAL HISTORY OF PNEUMONIA (RECURRENT 06/27/2017 [facility], KENDELL K Ot Z92.21 PERSONAL HISTORY OF ANTINEOPLASTIC CHEMO 06/27/2017 [facility], KENDELL K Ot Z95.0 PRESENCE OF CARDIAC PACEMAKER 06/27/2017 [place] DO, KENDELL K Ot Z96.652 PRESENCE OF LEFT ARTIFICIAL KNEE JOINT 07/07/2017 MARIAJOSE WILDER, ARABELLA Ot 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 NEOPLASM OF LEFT KIDNEY, EXCEP 07/07/2017 MARIAJOSE WILDER, ARABELLA Ot E11.9 TYPE 2 DIABETES MELLITUS WITHOUT COMPLIC 07/07/2017 MARIAJOSE WILDER, ARABELLA Ot F17.210 NICOTINE DEPENDENCE, CIGARETTES, UNCOMPL 07/07/2017 MARIAJOSE WILDER, ARABELLA Ot I10 ESSENTIAL (PRIMARY) HYPERTENSION 07/07/2017 ARABELLA BILLY MD Ot R91.1 SOLITARY PULMONARY NODULE 07/07/2017 ARABELLA BILLY MD Ot Z79.4 SNF (CURRENT) USE OF INSULIN 07/07/2017 ARABELLA BILLY MD Ot Z79.899 OTHER SNF (CURRENT) DRUG THERAPY 07/08/2017 ARABELLA BILLY MD Ot 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 NEOPLASM OF LEFT KIDNEY, EXCEP 07/08/2017 ARABELLA BILLY MD Ot E11.9 TYPE 2 DIABETES MELLITUS WITHOUT COMPLIC 07/08/2017 ARABELLA BILLY MD Ot F17.210 NICOTINE DEPENDENCE, CIGARETTES, UNCOMPL 07/08/2017 ARABELLA BILLY MD Ot I10 ESSENTIAL (PRIMARY) HYPERTENSION 07/08/2017 ARABELLA BILLY MD Ot R91.1 SOLITARY PULMONARY NODULE 07/08/2017 ARABELLA BILLY MD Ot Z79.4 GROCERY SACKER (CURRENT) USE OF INSULIN 07/08/2017 ARABELLA BILLY MD Ot Z79.899 OTHER SNF (CURRENT) DRUG THERAPY 07/15/2017 ARABELLA BILLY MD Ot 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 NEOPLASM OF LEFT KIDNEY, EXCEP 07/15/2017 ARABELLA BILLY MD Ot E11.9 TYPE 2 DIABETES MELLITUS WITHOUT COMPLIC 07/15/2017 ARABELLA BILLY MD Ot F17.210 NICOTINE DEPENDENCE, CIGARETTES, UNCOMPL 07/15/2017 ARABELLA BILLY MD Ot I10 ESSENTIAL (PRIMARY) HYPERTENSION 07/15/2017 ARABELLA BILLY MD Ot R91.1 SOLITARY PULMONARY NODULE 07/15/2017 ARABELLA BILLY MD Ot Z79.4 SNF (CURRENT) USE OF INSULIN 07/15/2017 ARABELLA BILLY MD Ot Z79.899 OTHER SNF (CURRENT) DRUG THERAPY 08/16/2017 ARABELLA BILLY MD Ot 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 NEOPLASM OF LEFT KIDNEY, EXCEP 08/16/2017 ARABELLA BILLY MD Ot E11.9 TYPE 2 DIABETES MELLITUS WITHOUT COMPLIC 08/16/2017 ARABELLA BILLY MD Ot F17.210 NICOTINE DEPENDENCE, CIGARETTES, UNCOMPL 08/16/2017 ARABELLA BILLY MD Ot I10 ESSENTIAL (PRIMARY) HYPERTENSION 08/16/2017 ARABELLA BILLY MD Ot R91.1 SOLITARY PULMONARY NODULE 08/16/2017 MARIAJOSE WILDER, ARABELLA Ot Z79.4 SNF (CURRENT) USE OF INSULIN 08/16/2017 MARIAJOSE WILDER, ARABELLA Ot Z79.899 OTHER GROCERY SACKER (CURRENT) DRUG THERAPY 09/11/2017 REVEAL VALERIE WILDER Ot 719.66 JOINT SYMPTOM NEC-L/LEG 09/11/2017 REVEAL VALERIE WILDER Ot 715.36 LOC OSTEOARTH NOS-L/LEG 09/11/2017 REVEAL VALERIE WILDER Ot 717.2 DERANG POST MED MENISCUS 09/11/2017 REVEAL VALERIE WILDER Ot 719.06 JOINT EFFUSION-L/LEG 09/11/2017 DADA BRANDT DANIEL Maurizio Ot 715.36 LOC OSTEOARTH NOS-L/LEG 09/11/2017 DADA BRANDT DANIEL Maurizio Ot V72.63 PRE-PROCEDURAL LABORATORY EXAMINATION 09/11/2017 DADA BRANDT DANIEL Maurizio Ot V72.81 [id number] CARDIOVASCULAR 09/11/2017 DANIEL GARLAND DO Ot V72.83 EXAM PRE-OPERATIVE NEC 09/11/2017 DADA BRANDT DANIEL Maurizio Ot V72.84 EXAM PRE-OPERATIVE NOS 09/11/2017 DADA BRANDT DANIEL Maurizio Ot V74.8 SCREEN-BACTERIAL DIS NEC 09/11/2017 DANIEL GARLAND DO Ot V43.65 KNEE JOINT REPLACEMENT STATUS 09/11/2017 DADA BRANDT DANIEL Maurizio Ot V58.61 ANTICOAGULANTS,LT,CURRENT USE 09/11/2017 DADA BRANDT DANIEL Maurizio Ot V58.83 ENCOUNTER FOR THERAPEUTIC DRUG MONITORIN 09/11/2017 KAROLINA BONDS [employer] SUPERVISOR Ot 719.06 JOINT EFFUSION-L/LEG 09/11/2017 KAROLINA BONDS [employer] SUPERVISOR Ot 719.46 JOINT PAIN-L/LEG 09/11/2017 KAROLINA BONDS [employer] SUPERVISOR Ot V43.65 KNEE JOINT REPLACEMENT STATUS 09/11/2017 DANIEL GARLAND DO Ot M25.561 PAIN IN RIGHT KNEE 09/11/2017 DANIEL GARLAND DO Ot M25.562 PAIN IN LEFT KNEE 09/11/2017 DANIEL GARLAND DO Ot Z96.653 PRESENCE OF ARTIFICIAL KNEE JOINT, BILAT 09/11/2017 KAROLINA BONDS [employer] SUPERVISOR Ot M25.561 PAIN IN RIGHT KNEE 09/11/2017 KAROLINA BONDS APRN Ot M25.562 PAIN IN LEFT KNEE 09/11/2017 KAROLINA BONDS APRN Ot M79.1 MYALGIA 09/11/2017 DADA DO, DANIEL F Ot M48.06 SPINAL STENOSIS, LUMBAR REGION 09/11/2017 DADA DO, DANIEL F Ot M51.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 DISC DEGENERATION, 09/11/2017 OMEGA SCOTT MD Ot I70.213 ATHSCL [place] ARTERIES OF EXTRM W INTRMT 09/11/2017 OMEGA SCOTT MD Ot M54.14 RADICULOPATHY, THORACIC REGION 09/11/2017 OMEGA SCOTT MD, Ot M54.2 CERVICALGIA 09/11/2017 VIOLET DOE MD Ot N28.89 OTHER SPECIFIED DISORDERS OF KIDNEY AND 09/11/2017 VIOLET DOE MD Ot R91.8 OTHER NONSPECIFIC ABNORMAL FINDING OF KAIN 09/11/2017 BEREKET MARTINEZ MD, Ot 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 NEOPLASM OF LEFT KIDNEY, EXCEP 09/11/2017 BEREKET MARTINEZ MD Ot 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 09/11/2017 BEREKET MARTINEZ MD Ot R91.8 OTHER NONSPECIFIC ABNORMAL FINDING OF KAIN 09/11/2017 BEREKET MARTINEZ MD, Ot Z90.49 ACQUIRED ABSENCE OF OTHER SPECIFIED PART 09/11/2017 BEREKET MARTINEZ MD, Ot Z90.5 ACQUIRED ABSENCE OF KIDNEY 09/11/2017 ARABELLA BILLY MD Ot K44.9 DIAPHRAGMATIC HERNIA WITHOUT OBSTRUCTION 09/11/2017 ARABELLA BILLY MD, Ot K57.30 DVRTCLOS OF LG INT W/O PERFORATION OR AB 09/11/2017 ARABELLA BILLY MD Ot R91.8 OTHER NONSPECIFIC ABNORMAL FINDING OF KAIN 09/11/2017 ARABELLA BILLY MD, Ot Z85.528 PERSONAL HISTORY OF OTHER MALIGNANT NEOP 09/11/2017 ARABELLA BILLY MD, Ot Z90.5 ACQUIRED ABSENCE OF KIDNEY 09/11/2017 ARABELLA BILLY MD, Ot 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 NEOPLASM OF LEFT KIDNEY, EXCEP 09/11/2017 ARABELLA BILLY MD Ot E11.9 TYPE 2 DIABETES MELLITUS WITHOUT COMPLIC 09/11/2017 ARABELLA BILLY MD Ot F17.210 NICOTINE DEPENDENCE, CIGARETTES, UNCOMPL 09/11/2017 MARIAJOSE WILDER, ARABELLA Ot I10 ESSENTIAL (PRIMARY) HYPERTENSION 09/11/2017 MARIAJOSE WILDER, ARABELLA Ot R91.1 SOLITARY PULMONARY NODULE 09/11/2017 ARABELLA BILLY MD Ot Z79.4 GROCERY SACKER (CURRENT) USE OF INSULIN 09/11/2017 ARABELLA BILLY MD Ot Z79.899 OTHER SNF (CURRENT) DRUG THERAPY 09/12/2017 VALERIE BARRIOS MD Ot 719.66 JOINT SYMPTOM NEC-L/LEG 09/12/2017 VALERIE BARRIOS MD Ot 715.36 LOC OSTEOARTH NOS-L/LEG 09/12/2017 VALERIE BARRIOS MD Ot 717.2 DERANG POST MED MENISCUS 09/12/2017 VALERIE BARRIOS MD Ot 719.06 JOINT EFFUSION-L/LEG 09/12/2017 DANIEL GARLAND DO Ot 715.36 LOC OSTEOARTH NOS-L/LEG 09/12/2017 DANIEL GARLAND DO Ot V72.63 PRE-PROCEDURAL LABORATORY EXAMINATION 09/12/2017 DANIEL GARLAND DO Ot V72.81 [id number] CARDIOVASCULAR 09/12/2017 DANIEL GARLAND DO Ot V72.83 EXAM PRE-OPERATIVE NEC 09/12/2017 DANIEL GARLAND DO Ot V72.84 EXAM PRE-OPERATIVE NOS 09/12/2017 DANIEL GARLAND DO Ot V74.8 SCREEN-BACTERIAL DIS NEC 09/12/2017 DANIEL GARLAND DO Ot V43.65 KNEE JOINT REPLACEMENT STATUS 09/12/2017 DANIEL GARLAND DO Ot V58.61 ANTICOAGULANTS,LT,CURRENT USE 09/12/2017 DANIEL GARLAND DO Ot V58.83 ENCOUNTER FOR THERAPEUTIC DRUG MONITORIN 09/12/2017 KAROLINA BONDS [employer] SUPERVISOR Ot 719.06 JOINT EFFUSION-L/LEG 09/12/2017 KAROLINA BONDS [employer] SUPERVISOR Ot 719.46 JOINT PAIN-L/LEG 09/12/2017 KAROLINA BONDS [employer] SUPERVISOR Ot V43.65 KNEE JOINT REPLACEMENT STATUS 09/12/2017 DANIEL GARLAND DO Ot M25.561 PAIN IN RIGHT KNEE 09/12/2017 DANIEL GARLAND DO Ot M25.562 PAIN IN LEFT KNEE 09/12/2017 DADA DO, DANIEL Maurizio Ot Z96.653 PRESENCE OF ARTIFICIAL KNEE JOINT, BILAT 09/12/2017 VAMSHIKAROLINA BRIAR SH[employer] SUPERVISOR Ot M25.561 PAIN IN RIGHT KNEE 09/12/2017 VAMSHI KAROLINA E [employer] SUPERVISOR Ot M25.562 PAIN IN LEFT KNEE 09/12/2017 VAMSHIKAROLINA BRIAR SH[employer] SUPERVISOR Ot M79.1 MYALGIA 09/12/2017 DADA DO, DANIEL Steven Ot M48.06 SPINAL STENOSIS, LUMBAR REGION 09/12/2017 DADA DO, DANIEL F Ot M51.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 DISC DEGENERATION, 09/12/2017 OMEGA SCOTT MD Ot I70.213 ATHSCL [place] ARTERIES OF EXTRM W INTRMT 09/12/2017 OMEGA SCOTT MD Ot M54.14 RADICULOPATHY, THORACIC REGION 09/12/2017 OMEGA SCOTT MD, Ot M54.2 CERVICALGIA 09/12/2017 VIOLET DOE MD Ot N28.89 OTHER SPECIFIED DISORDERS OF KIDNEY AND 09/12/2017 VIOLET DOE MD Ot R91.8 OTHER NONSPECIFIC ABNORMAL FINDING OF KAIN 09/12/2017 BEREKET MARTINEZ MD, Ot 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 NEOPLASM OF LEFT KIDNEY, EXCEP 09/12/2017 BEREKET MARTINEZ MD Ot 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 09/12/2017 BEREKET MARTINEZ MD Ot R91.8 OTHER NONSPECIFIC ABNORMAL FINDING OF KAIN 09/12/2017 BEREKET MARTINEZ MD Ot Z90.49 ACQUIRED ABSENCE OF OTHER SPECIFIED PART 09/12/2017 BEREKET MARTINEZ MD Ot Z90.5 ACQUIRED ABSENCE OF KIDNEY 09/12/2017 ARABELLA BILLY MD, Ot K44.9 DIAPHRAGMATIC HERNIA WITHOUT OBSTRUCTION 09/12/2017 ARABELLA BILLY MD, Ot K57.30 DVRTCLOS OF LG INT W/O PERFORATION OR AB 09/12/2017 ARABELLA BILLY MD Ot R91.8 OTHER NONSPECIFIC ABNORMAL FINDING OF KAIN 09/12/2017 ARABELLA BILLY MD, Ot Z85.528 PERSONAL HISTORY OF OTHER MALIGNANT NEOP 09/12/2017 ARABELLA BILLY MD, Ot Z90.5 ACQUIRED ABSENCE OF KIDNEY 09/12/2017 XUN MD, MACIAS-RYAN Ot 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 NEOPLASM OF LEFT KIDNEY, EXCEP 09/12/2017 MARIAJOSE WILDER, ARABELLA Ot E11.9 TYPE 2 DIABETES MELLITUS WITHOUT COMPLIC 09/12/2017 ARABELLA BILLY MD Ot F17.210 NICOTINE DEPENDENCE, CIGARETTES, UNCOMPL 09/12/2017 ARABELLA BILLY MD Ot I10 ESSENTIAL (PRIMARY) HYPERTENSION 09/12/2017 ARABELLA BILLY MD Ot R91.1 SOLITARY PULMONARY NODULE 09/12/2017 ARABELLA BILLY MD Ot Z79.4 SNF (CURRENT) USE OF INSULIN 09/12/2017 ARABELLA BILLY MD Ot Z79.899 OTHER SNF (CURRENT) DRUG THERAPY 09/12/2017 SOPHIE WILDER, VALERIE Bennett Ot 719.66 JOINT SYMPTOM NEC-L/LEG 09/12/2017 SOPHIE WILDER, VALERIE Bennett Ot 715.36 LOC OSTEOARTH NOS-L/LEG 09/12/2017 SOPHIE WILDER, VALERIE Bennett Ot 717.2 DERANG POST MED MENISCUS 09/12/2017 SOPHIE WILDER, VALERIE Bennett Ot 719.06 JOINT EFFUSION-L/LEG 09/12/2017 DADA DO DANIEL Maurizio Ot 715.36 LOC OSTEOARTH NOS-L/LEG 09/12/2017 DADA BRANDT DANIEL F Ot V72.63 PRE-PROCEDURAL LABORATORY EXAMINATION 09/12/2017 DANIEL GARLAND DO Ot V72.81 [id number]-[id number] CARDIOVASCULAR 09/12/2017 DANIEL GARLAND DO Ot V72.83 EXAM PRE-OPERATIVE NEC 09/12/2017 DADA BRANDT DANIEL Maurizio Ot V72.84 EXAM PRE-OPERATIVE NOS 09/12/2017 DANIEL GARLAND DO Ot V74.8 SCREEN-BACTERIAL DIS NEC 09/12/2017 DADA BRANDT DANIEL Maurizio Ot V43.65 KNEE JOINT REPLACEMENT STATUS 09/12/2017 DADA BRANDT DANIEL F Ot V58.61 ANTICOAGULANTS,LT,CURRENT USE 09/12/2017 DADA BRANDT DANIEL Maurizio Ot V58.83 ENCOUNTER FOR THERAPEUTIC DRUG MONITORIN 09/12/2017 KAROLINA BONDS [employer] SUPERVISOR Ot 719.06 JOINT EFFUSION-L/LEG 09/12/2017 KAROLINA BONDS [employer] SUPERVISOR Ot 719.46 JOINT PAIN-L/LEG 09/12/2017 KAROLINA BONDS [employer] SUPERVISOR Ot V43.65 KNEE JOINT REPLACEMENT STATUS 09/12/2017 DADA , DANIEL Steven Ot M25.561 PAIN IN RIGHT KNEE 09/12/2017 DADA , DANIEL Steven Ot M25.562 PAIN IN LEFT KNEE 09/12/2017 DADA , DANIEL Steven Ot Z96.653 PRESENCE OF ARTIFICIAL KNEE JOINT, BILAT 09/12/2017 VAMSHIKAROLINA E BRIAR [employer] SUPERVISOR Ot M25.561 PAIN IN RIGHT KNEE 09/12/2017 VAMSHI KAROLINA E [employer] SUPERVISOR Ot M25.562 PAIN IN LEFT KNEE 09/12/2017 VAMSHI KAROLINA E [employer] SUPERVISOR Ot M79.1 MYALGIA 09/12/2017 DADA , DANIEL Steven Ot M48.06 SPINAL STENOSIS, LUMBAR REGION 09/12/2017 DADA BRANDT, DANIEL Steven Ot M51.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 DISC DEGENERATION, 09/12/2017 SONIA WILDER, OMEGA Meyer Ot I70.213 ATHSCL [place] ARTERIES OF EXTRM W INTRMT 09/12/2017 OMEGA SCOTT MD Ot M54.14 RADICULOPATHY, THORACIC REGION 09/12/2017 OMEGA SCOTT MD Ot M54.2 CERVICALGIA 09/12/2017 VIOLET DOE MD Ot N28.89 OTHER SPECIFIED DISORDERS OF KIDNEY AND 09/12/2017 VIOLET DOE MD Ot R91.8 OTHER NONSPECIFIC ABNORMAL FINDING OF KAIN 09/12/2017 BEREKET MARTINEZ MD Ot 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 NEOPLASM OF LEFT KIDNEY, EXCEP 09/12/2017 BEREKET MARTINEZ MD Ot 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 09/12/2017 BEREKET MARTINEZ MD Ot R91.8 OTHER NONSPECIFIC ABNORMAL FINDING OF KAIN 09/12/2017 BEREKET MARTINEZ MD Ot Z90.49 ACQUIRED ABSENCE OF OTHER SPECIFIED PART 09/12/2017 BEREKET MARTINEZ MD Ot Z90.5 ACQUIRED ABSENCE OF KIDNEY 09/12/2017 ARABELLA BILLY MD Ot K44.9 DIAPHRAGMATIC HERNIA WITHOUT OBSTRUCTION 09/12/2017 ARABELLA BILLY MD, Ot K57.30 DVRTCLOS OF LG INT W/O PERFORATION OR AB 09/12/2017 ARABELLA BILLY MD Ot R91.8 OTHER NONSPECIFIC ABNORMAL FINDING OF KAIN 09/12/2017 ARABELLA BILLY MD Ot Z85.528 PERSONAL HISTORY OF OTHER MALIGNANT NEOP 09/12/2017 ARABELLA BILLY MD, Ot Z90.5 ACQUIRED ABSENCE OF KIDNEY 09/12/2017 ARABELLA BILLY MD, Ot 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 NEOPLASM OF LEFT KIDNEY, EXCEP 09/12/2017 ARABELLA BILLY MD Ot E11.9 TYPE 2 DIABETES MELLITUS WITHOUT COMPLIC 09/12/2017 ARABELLA BILLY MD, Ot F17.210 NICOTINE DEPENDENCE, CIGARETTES, UNCOMPL 09/12/2017 ARABELLA BILLY MD Ot I10 ESSENTIAL (PRIMARY) HYPERTENSION 09/12/2017 ARABELLA BILLY MD, Ot R91.1 SOLITARY PULMONARY NODULE 09/12/2017 ARABELLA BILLY MD, Ot Z79.4 SNF (CURRENT) USE OF INSULIN 09/12/2017 ARABELLA BILLY MD, Ot Z79.899 OTHER GROCERY SACKER (CURRENT) DRUG THERAPY 09/13/2017 ARABELLA BILLY MD, Ot C64.9 MALIGNANT NEOPLASM OF UNSP KIDNEY, EXCEP 09/13/2017 ARABELLA BILLY MD, Ot 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 09/18/2017 ARABELLA BILLY MD, Ot C64.9 MALIGNANT NEOPLASM OF UNSP KIDNEY, EXCEP 09/18/2017 ARABELLA BILLY MD, Ot 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 09/19/2017 VALERIE BARRIOS MD Ot 719.66 JOINT SYMPTOM NEC-L/LEG 09/19/2017 VALERIE BARRIOS MD Ot 715.36 LOC OSTEOARTH NOS-L/LEG 09/19/2017 VALERIE BARRIOS MD Ot 717.2 DERANG POST MED MENISCUS 09/19/2017 VALERIE BARRIOS MD Ot 719.06 JOINT EFFUSION-L/LEG 09/19/2017 DANIEL GARLAND DO Ot 715.36 LOC OSTEOARTH NOS-L/LEG 09/19/2017 DANIEL GARLAND DO Ot V72.63 PRE-PROCEDURAL LABORATORY EXAMINATION 09/19/2017 DANIEL GARLAND DO Ot V72.81 QSOS-SUI-TYYORTTUX CARDIOVASCULAR 09/19/2017 DANIEL GARLAND DO Ot V72.83 EXAM PRE-OPERATIVE NEC 09/19/2017 DANIEL GARLAND DO Ot V72.84 EXAM PRE-OPERATIVE NOS 09/19/2017 DANIEL GARLAND DO Ot V74.8 SCREEN-BACTERIAL DIS NEC 09/19/2017 DANIEL GARLAND DO Ot V43.65 KNEE JOINT REPLACEMENT STATUS 09/19/2017 DANIEL GARLAND DO Ot V58.61 ANTICOAGULANTS,LT,CURRENT USE 09/19/2017 DANIEL GARLAND DO Ot V58.83 ENCOUNTER FOR THERAPEUTIC DRUG MONITORIN 09/19/2017 KAROLINA BONDS [employer]RIAR [employer] SUPERVISOR Ot 719.06 JOINT EFFUSION-L/LEG 09/19/2017 VAMSHI KAROLINA E [employer] SH[employer] SUPERVISOR Ot 719.46 JOINT PAIN-L/LEG 09/19/2017 KAROLINA BONDS [employer] SUPERVISOR Ot V43.65 KNEE JOINT REPLACEMENT STATUS 09/19/2017 DANIEL GARLAND DO Ot M25.561 PAIN IN RIGHT KNEE 09/19/2017 DANIEL GARLAND DO Ot M25.562 PAIN IN LEFT KNEE 09/19/2017 DANIEL GARLAND DO Ot Z96.653 PRESENCE OF ARTIFICIAL KNEE JOINT, BILAT 09/19/2017 KAROLINA BONDS [employer] SUPERVISOR Ot M25.561 PAIN IN RIGHT KNEE 09/19/2017 KAROLINA BONDS [employer] SUPERVISOR Ot M25.562 PAIN IN LEFT KNEE 09/19/2017 VAMSHI KAROLINA E [employer] SUPERVISOR Ot M79.1 MYALGIA 09/19/2017 DANIEL GARLAND DO Ot M48.06 SPINAL STENOSIS, LUMBAR REGION 09/19/2017 DANIEL GARLAND DO Ot M51.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 DISC DEGENERATION, 09/19/2017 OMEGA SCOTT MD Ot I70.213 ATHSCL [place] ARTERIES OF EXTRM W INTRMT 09/19/2017 OMEGA SCOTT MD Ot M54.14 RADICULOPATHY, THORACIC REGION 09/19/2017 OMEGA SCOTT MD Ot M54.2 CERVICALGIA 09/19/2017 VIOLET DOE MD Ot N28.89 OTHER SPECIFIED DISORDERS OF KIDNEY AND 09/19/2017 VIOLET DOE MD Ot R91.8 OTHER NONSPECIFIC ABNORMAL FINDING OF KAIN 09/19/2017 BEREKET MARTINEZ MD Ot 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 NEOPLASM OF LEFT KIDNEY, EXCEP 09/19/2017 BEREKET MARTINEZ MD Ot 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 09/19/2017 BEREKET MARTINEZ MD Ot R91.8 OTHER NONSPECIFIC ABNORMAL FINDING OF KAIN 09/19/2017 BEREKET MARTINEZ MD, Ot Z90.49 ACQUIRED ABSENCE OF OTHER SPECIFIED PART 09/19/2017 BEREKET MARTINEZ MD, Ot Z90.5 ACQUIRED ABSENCE OF KIDNEY 09/19/2017 ARABELLA BILLY MD, Ot K44.9 DIAPHRAGMATIC HERNIA WITHOUT OBSTRUCTION 09/19/2017 ARABELLA BILLY MD, Ot K57.30 DVRTCLOS OF LG INT W/O PERFORATION OR AB 09/19/2017 ARABELLA BILLY MD, Ot R91.8 OTHER NONSPECIFIC ABNORMAL FINDING OF KAIN 09/19/2017 ARABELLA BILLY MD, Ot Z85.528 PERSONAL HISTORY OF OTHER MALIGNANT NEOP 09/19/2017 ARABELLA BILLY MD, Ot Z90.5 ACQUIRED ABSENCE OF KIDNEY 09/19/2017 ARABELLA BILLY MD, Ot 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 NEOPLASM OF LEFT KIDNEY, EXCEP 09/19/2017 ARABELLA BILLY MD, Ot E11.9 TYPE 2 DIABETES MELLITUS WITHOUT COMPLIC 09/19/2017 ARABELLA BILLY MD, Ot F17.210 NICOTINE DEPENDENCE, CIGARETTES, UNCOMPL 09/19/2017 ARABELLA BILLY MD, Ot I10 ESSENTIAL (PRIMARY) HYPERTENSION 09/19/2017 ARABELLA BILLY MD, Ot R91.1 SOLITARY PULMONARY NODULE 09/19/2017 ARABELLA BILLY MD, Ot Z79.4 GROCERY SACKER (CURRENT) USE OF INSULIN 09/19/2017 ARABELLA BILLY MD, Ot Z79.899 OTHER GROCERY SACKER (CURRENT) DRUG THERAPY 09/19/2017 ARABELLA BILLY MD, Ot C64.9 MALIGNANT NEOPLASM OF UNSP KIDNEY, EXCEP 09/19/2017 ARABELLA BILLY MD, Ot 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 09/20/2017 ARABELLA BILLY MD, Ot 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 NEOPLASM OF LEFT KIDNEY, EXCEP 09/20/2017 ARABELLA BILLY MD, Ot E11.9 TYPE 2 DIABETES MELLITUS WITHOUT COMPLIC 09/20/2017 ARABELLA BILLY MD, Ot F17.210 NICOTINE DEPENDENCE, CIGARETTES, UNCOMPL 09/20/2017 ARABELLA BILLY MD Ot I10 ESSENTIAL (PRIMARY) HYPERTENSION 09/20/2017 XUN MD, MACIAS-RYAN Ot R91.1 SOLITARY PULMONARY NODULE 09/20/2017 ARABELLA BILLY MD Ot Z79.4 GROCERY SACKER (CURRENT) USE OF INSULIN 09/20/2017 ARABELLA BILLY MD Ot Z79.899 OTHER SNF (CURRENT) DRUG THERAPY 09/23/2017 ARABELLA BILLY MD Ot 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 NEOPLASM OF LEFT KIDNEY, EXCEP 09/23/2017 ARABELLA BILLY MD Ot E11.9 TYPE 2 DIABETES MELLITUS WITHOUT COMPLIC 09/23/2017 ARABELLA BILLY MD Ot F17.210 NICOTINE DEPENDENCE, CIGARETTES, UNCOMPL 09/23/2017 ARABELLA BILLY MD Ot I10 ESSENTIAL (PRIMARY) HYPERTENSION 09/23/2017 ARABELLA BILLY MD Ot R91.1 SOLITARY PULMONARY NODULE 09/23/2017 ARABELLA BILLY MD, Ot Z79.4 SNF (CURRENT) USE OF INSULIN 09/23/2017 ARABELLA BILLY MD, Ot Z79.899 OTHER SNF (CURRENT) DRUG THERAPY 09/25/2017 ARABELLA BILLY MD, Ot 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 NEOPLASM OF LEFT KIDNEY, EXCEP 09/25/2017 ARABELLA BILLY MD, Ot E11.9 TYPE 2 DIABETES MELLITUS WITHOUT COMPLIC 09/25/2017 ARABELLA BILLY MD Ot F17.210 NICOTINE DEPENDENCE, CIGARETTES, UNCOMPL 09/25/2017 ARABELLA BILLY MD Ot I10 ESSENTIAL (PRIMARY) HYPERTENSION 09/25/2017 ARABELLA BILLY MD Ot R91.1 SOLITARY PULMONARY NODULE 09/25/2017 ARABELLA BILLY MD, Ot Z79.4 GROCERY SACKER (CURRENT) USE OF INSULIN 09/25/2017 ARABELLA BILLY MD Ot Z79.899 OTHER GROCERY SACKER (CURRENT) DRUG THERAPY 10/10/2017 ARABELLA BILLY MD Ot 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 NEOPLASM OF LEFT KIDNEY, EXCEP 10/10/2017 ARABELLA BILLY MD Ot E11.9 TYPE 2 DIABETES MELLITUS WITHOUT COMPLIC 10/10/2017 ARABELLA BILLY MD Ot F17.210 NICOTINE DEPENDENCE, CIGARETTES, UNCOMPL 10/10/2017 ARABELLA BILLY MD Ot I10 ESSENTIAL (PRIMARY) HYPERTENSION 10/10/2017 ARABELLA BILLY MD Ot R91.1 SOLITARY PULMONARY NODULE 10/10/2017 ARABELLA BILLY MD, Ot Z79.4 SNF (CURRENT) USE OF INSULIN 10/10/2017 ARABELLA BILLY MD Ot Z79.899 OTHER SNF (CURRENT) DRUG THERAPY 10/11/2017 ARABELLA BILLY MD, Ot 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 NEOPLASM OF LEFT KIDNEY, EXCEP 10/11/2017 ARABELLA BILLY MD Ot E11.9 TYPE 2 DIABETES MELLITUS WITHOUT COMPLIC 10/11/2017 ARABELLA BILLY MD Ot F17.210 NICOTINE DEPENDENCE, CIGARETTES, UNCOMPL 10/11/2017 ARABELLA BILLY MD Ot I10 ESSENTIAL (PRIMARY) HYPERTENSION 10/11/2017 ARABELLA BILLY MD Ot R91.1 SOLITARY PULMONARY NODULE 10/11/2017 ARABELLA BILLY MD, Ot Z79.4 SNF (CURRENT) USE OF INSULIN 10/11/2017 ARABELLA BILLY MD Ot Z79.899 OTHER GROCERY SACKER (CURRENT) DRUG THERAPY 10/24/2017 ARABELLA BILLY MD, Ot 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 NEOPLASM OF LEFT KIDNEY, EXCEP 10/24/2017 ARABELLA BILLY MD Ot E11.9 TYPE 2 DIABETES MELLITUS WITHOUT COMPLIC 10/24/2017 ARABELLA BILLY MD Ot F17.210 NICOTINE DEPENDENCE, CIGARETTES, UNCOMPL 10/24/2017 ARABELLA BILLY MD Ot I10 ESSENTIAL (PRIMARY) HYPERTENSION 10/24/2017 ARABELLA BILLY MD Ot R91.1 SOLITARY PULMONARY NODULE 10/24/2017 ARABELLA BILLY MD Ot Z79.4 SNF (CURRENT) USE OF INSULIN 10/24/2017 ARABELLA BILLY MD Ot Z79.899 OTHER GROCERY SACKER (CURRENT) DRUG THERAPY 10/25/2017 ARABELLA BILLY MD Ot 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 NEOPLASM OF LEFT KIDNEY, EXCEP 10/25/2017 ARABELLA BILLY MD Ot E11.9 TYPE 2 DIABETES MELLITUS WITHOUT COMPLIC 10/25/2017 ARABELLA BILLY MD Ot F17.210 NICOTINE DEPENDENCE, CIGARETTES, UNCOMPL 10/25/2017 ARABELLA BILLY MD Ot I10 ESSENTIAL (PRIMARY) HYPERTENSION 10/25/2017 ARABELLA BILLY MD Ot R91.1 SOLITARY PULMONARY NODULE 10/25/2017 ARABELLA BILLY MD Ot Z79.4 SNF (CURRENT) USE OF INSULIN 10/25/2017 ARABELLA BILLY MD Ot Z79.899 OTHER SNF (CURRENT) DRUG THERAPY 11/14/2017 ARABELLA BILLY MD, Ot 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 NEOPLASM OF LEFT KIDNEY, EXCEP 11/14/2017 ARABELLA BILLY MD Ot E11.9 TYPE 2 DIABETES MELLITUS WITHOUT COMPLIC 11/14/2017 ARABELLA BILLY MD, Ot F17.210 NICOTINE DEPENDENCE, CIGARETTES, UNCOMPL 11/14/2017 ARABELLA BILLY MD Ot I10 ESSENTIAL (PRIMARY) HYPERTENSION 11/14/2017 ARABELLA BILLY MD, Ot R91.1 SOLITARY PULMONARY NODULE 11/14/2017 ARABELLA BILLY MD, Ot Z51.11 ENCOUNTER FOR ANTINEOPLASTIC CHEMOTHERAP 11/14/2017 ARABELLA BILLY MD, Ot Z79.4 SNF (CURRENT) USE OF INSULIN 11/14/2017 ARABELLA BILLY MD, Ot Z79.899 OTHER GROCERY SACKER (CURRENT) DRUG THERAPY 11/20/2017 ARABELLA BILLY MD, Ot C64.9 MALIGNANT NEOPLASM OF UNSP KIDNEY, EXCEP 11/20/2017 ARABELLA BILLY MD Ot 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 01/22/2018 ARABELLA BILLY MD, Ot 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 NEOPLASM OF LEFT KIDNEY, EXCEP 01/22/2018 ARABELLA BILLY MD, Ot E11.9 TYPE 2 DIABETES MELLITUS WITHOUT COMPLIC 01/22/2018 ARABELLA BILLY MD, Ot F17.210 NICOTINE DEPENDENCE, CIGARETTES, UNCOMPL 01/22/2018 ARABELLA BILLY MD Ot I10 ESSENTIAL (PRIMARY) HYPERTENSION 01/22/2018 ARABELLA BILLY MD Ot R91.1 SOLITARY PULMONARY NODULE 01/22/2018 ARABELLA BILLY MD, Ot Z51.11 ENCOUNTER FOR ANTINEOPLASTIC CHEMOTHERAP 01/22/2018 ARABELLA BILLY MD, Ot Z79.4 GROCERY SACKER (CURRENT) USE OF INSULIN 01/22/2018 ARABELLA BILLY MD, Ot Z79.899 OTHER GROCERY SACKER (CURRENT) DRUG THERAPY 01/23/2018 ARABELLA BILLY MD, Ot 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 NEOPLASM OF LEFT KIDNEY, EXCEP 01/23/2018 ARABELLA BILLY MD Ot E11.9 TYPE 2 DIABETES MELLITUS WITHOUT COMPLIC 01/23/2018 ARABELLA BILLY MD Ot F17.210 NICOTINE DEPENDENCE, CIGARETTES, UNCOMPL 01/23/2018 ARABELLA BILLY MD Ot I10 ESSENTIAL (PRIMARY) HYPERTENSION 01/23/2018 ARABELLA BILLY MD Ot R91.1 SOLITARY PULMONARY NODULE 01/23/2018 ARABELLA BILLY MD Ot Z51.11 ENCOUNTER FOR ANTINEOPLASTIC CHEMOTHERAP 01/23/2018 ARABELLA BILLY MD Ot Z79.4 SNF (CURRENT) USE OF INSULIN 01/23/2018 ARABELLA BILLY MD Ot Z79.899 OTHER SNF (CURRENT) DRUG THERAPY 01/30/2018 ARABELLA BILLY MD, Ot 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 NEOPLASM OF LEFT KIDNEY, EXCEP 01/30/2018 ARABELLA BILLY MD Ot E11.9 TYPE 2 DIABETES MELLITUS WITHOUT COMPLIC 01/30/2018 ARABELLA BILLY MD Ot F17.210 NICOTINE DEPENDENCE, CIGARETTES, UNCOMPL 01/30/2018 ARABELLA BILLY MD Ot I10 ESSENTIAL (PRIMARY) HYPERTENSION 01/30/2018 ARABELLA BILLY MD Ot R91.1 SOLITARY PULMONARY NODULE 01/30/2018 ARABELLA BILLY MD Ot Z51.11 ENCOUNTER FOR ANTINEOPLASTIC CHEMOTHERAP 01/30/2018 ARABELLA BILLY MD Ot Z79.4 SNF (CURRENT) USE OF INSULIN 01/30/2018 ARABELLA BILLY MD Ot Z79.899 OTHER GROCERY SACKER (CURRENT) DRUG THERAPY 02/25/2018 ARABELLA BILLY MD, Ot 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 NEOPLASM OF LEFT KIDNEY, EXCEP 02/25/2018 ARABELLA BILLY MD Ot E11.9 TYPE 2 DIABETES MELLITUS WITHOUT COMPLIC 02/25/2018 ARABELLA BILLY MD Ot F17.210 NICOTINE DEPENDENCE, CIGARETTES, UNCOMPL 02/25/2018 ARABELLA BILLY MD Ot I10 ESSENTIAL (PRIMARY) HYPERTENSION 02/25/2018 ARABELLA BILLY MD Ot R91.1 SOLITARY PULMONARY NODULE 02/25/2018 ARABELLA BILLY MD Ot Z51.11 ENCOUNTER FOR ANTINEOPLASTIC CHEMOTHERAP 02/25/2018 ARABELLA BILLY MD Ot Z79.4 SNF (CURRENT) USE OF INSULIN 02/25/2018 ARABELLA BILLY MD Ot Z79.899 OTHER SNF (CURRENT) DRUG THERAPY 03/05/2018 ARABELLA BILLY MD, Ot 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 NEOPLASM OF LEFT KIDNEY, EXCEP 03/05/2018 ARABELLA BILLY MD Ot E11.9 TYPE 2 DIABETES MELLITUS WITHOUT COMPLIC 03/05/2018 ARABELLA BILLY MD Ot F17.210 NICOTINE DEPENDENCE, CIGARETTES, UNCOMPL 03/05/2018 ARABELLA BILLY MD Ot I10 ESSENTIAL (PRIMARY) HYPERTENSION 03/05/2018 ARABELLA BILLY MD Ot R91.1 SOLITARY PULMONARY NODULE 03/05/2018 ARABELLA BILLY MD Ot Z51.11 ENCOUNTER FOR ANTINEOPLASTIC CHEMOTHERAP 03/05/2018 ARABELLA BILLY MD Ot Z79.4 GROCERY SACKER (CURRENT) USE OF INSULIN 03/05/2018 ARABELLA BILLY MD Ot Z79.899 OTHER GROCERY SACKER (CURRENT) DRUG THERAPY 03/27/2018 ARABELLA BILLY MD, Ot 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 NEOPLASM OF LEFT KIDNEY, EXCEP 03/27/2018 ARABELLA BILLY MD Ot E11.9 TYPE 2 DIABETES MELLITUS WITHOUT COMPLIC 03/27/2018 ARABELLA BILLY MD Ot F17.210 NICOTINE DEPENDENCE, CIGARETTES, UNCOMPL 03/27/2018 ARABELLA BILLY MD Ot I10 ESSENTIAL (PRIMARY) HYPERTENSION 03/27/2018 ARABELLA BILLY MD Ot R91.1 SOLITARY PULMONARY NODULE 03/27/2018 ARABELLA BILLY MD Ot Z51.11 ENCOUNTER FOR ANTINEOPLASTIC CHEMOTHERAP 03/27/2018 ARABELLA BILLY MD Ot Z79.4 GROCERY SACKER (CURRENT) USE OF INSULIN 03/27/2018 ARABELLA BILLY MD Ot Z79.899 OTHER GROCERY SACKER (CURRENT) DRUG THERAPY 04/23/2018 ARABELLA BILLY MD, Ot C64.9 MALIGNANT NEOPLASM OF UNSP KIDNEY, EXCEP 04/23/2018 ARABELLA BILLY MD, Ot 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 04/23/2018 DAMARIS VALADEZ MD, Ot C64.9 MALIGNANT NEOPLASM OF UNSP KIDNEY, EXCEP 04/23/2018 DAMARIS VALADEZ MD, Ot 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 Procedures Code Description Performed By Performed On 81.54 TOTAL KNEE REPLACEMENT 10/20/2013 [id number] REPLACE OF R KNEE JT WITH SYNTH [...] plasma rheumatoid factor measurement (units/volume) NEGATIVE NEGATIVE [id number] - 09/12/16 17:38 Screening antinuclear antibody (FLASH) [...] NRG Blood erythrocyte morphology finding identification NORMAL NR Comprehensive metabolic panel - 11/02/16 08:15 Serum [...] measurement by glucometer (mass/volume) 71 mg/dL 70-110 Complete blood count (CBC) with automated white blood cell (WBC) differential - 06/25/17 07:00 Blood leukocytes automated count (number/volume) 3.8 10*3/uL 4.3-11.0 Blood erythrocytes automated count (number/volume) 4.22 10*6/uL 4.35-5.85 Venous blood hemoglobin measurement (mass/volume) 12.8 g/dL 13.3-17.7 Blood hematocrit (volume fraction) 38 % 40-54 Automated erythrocyte mean corpuscular volume 91 [foz_us] 80-99 Automated erythrocyte mean corpuscular hemoglobin (mass per erythrocyte) 30 pg 25-34 Automated erythrocyte mean corpuscular hemoglobin concentration measurement ( mass/volume) 33 g/dL 32-36 Automated erythrocyte distribution width ratio 15.0 % 10.0-14.5 Automated blood platelet count (count/volume) 139 10*3/uL 130-400 Automated blood platelet mean volume measurement 9.8 [foz_us] 7.4-10.4 Automated blood neutrophils/100 leukocytes 72 % 42-75 Automated blood lymphocytes/100 leukocytes 18 % 12-44 Blood monocytes/100 leukocytes 10 % 0-12 Automated blood eosinophils/100 leukocytes 0 % 0-10 Automated blood basophils/100 leukocytes 0 % 0-10 Blood neutrophils automated count (number/volume) 2.7 10*3 1.8-7.8 Blood lymphocytes automated count (number/volume) 0.7 10*3 1.0-4.0 Blood monocytes automated count (number/volume) 0.4 10*3 0.0-1.0 Automated eosinophil count 0.0 10*3/uL 0.0-0.3 Automated blood basophil count (count/volume) 0.0 10*3/uL 0.0-0.1 Comprehensive metabolic panel - 06/25/17 07:00 Serum or plasma sodium measurement (moles/volume) 135 mmol/L 135-145 Serum or plasma potassium measurement (moles/volume) 4.2 mmol/L 3.6-5.0 Serum or plasma chloride measurement (moles/volume) 100 mmol/L 98-107 Carbon dioxide 25 mmol/L 21-32 Serum or plasma anion gap determination (moles/volume) 10 mmol/L 5-14 Serum or plasma urea nitrogen measurement (mass/volume) 18 mg/dL 7-18 Serum or plasma creatinine measurement (mass/volume) 1.24 mg/dL 0.60-1.30 Serum or plasma urea nitrogen/creatinine mass ratio 15 NRG Serum or plasma creatinine measurement with calculation of estimated glomerular filtration rate 59 NRG Serum or plasma glucose measurement (mass/volume) 265 mg/dL 70-105 Serum or plasma calcium measurement (mass/volume) 9.0 mg/dL 8.5-10.1 Serum or plasma total bilirubin measurement (mass/volume) 0.7 mg/dL 0.1-1.0 Serum or plasma alkaline phosphatase measurement (enzymatic activity/volume) 57 U/L 40-136 Serum or plasma aspartate aminotransferase measurement (enzymatic activity/ volume) 33 U/L 5-34 Serum or plasma alanine aminotransferase measurement (enzymatic activity/volume ) 29 U/L 0-55 Serum or plasma protein measurement (mass/volume) 6.5 g/dL 6.4-8.2 Serum or plasma albumin measurement (mass/volume) 3.7 g/dL 3.2-4.5 Magnesium - 06/25/17 07:00 Magnesium 1.8 mg/dL 1.8-2.4 Serum or plasma amylase measurement (enzymatic activity/volume) - 06/25/17 07: 00 Serum or plasma amylase measurement (enzymatic activity/volume) 85 U /L 25-125 Lipase - 06/25/17 07:00 Lipase 22 U/L 8-78 Serum or plasma ethanol measurement (mass/volume) - 06/25/17 07:00 Serum or plasma ethanol measurement (mass/volume) < mg/dL <10 Capillary blood glucose measurement by glucometer (mass/volume) - 06/25/17 07: 03 Capillary blood glucose measurement by glucometer (mass/volume) 206 mg/dL 70-110 Urine drug screening test - 06/25/17 08:18 Urine phencyclidine detection by screening method NEGATIVE NEGATIVE Urine benzodiazepines detection by screening method NEGATIVE NEGATIVE Urine cocaine detection NEGATIVE NEGATIVE Urine amphetamines detection by screening method NEGATIVE NEGATIVE Urine methamphetamine detection by screening method NEGATIVE NEGATIVE Urine cannabinoids detection by screening method NEGATIVE NEGATIVE Urine opiates detection by screening method NEGATIVE NEGATIVE Urine barbiturates detection NEGATIVE NEGATIVE Screening urine tricyclic antidepressants detection NEGATIVE NEGATIVE Urine methadone detection by screening method NEGATIVE NEGATIVE Urine oxycodone detection NEGATIVE NEGATIVE Urine propoxyphene detection NEGATIVE NEGATIVE Complete urinalysis with reflex to culture - 06/25/17 08:18 Urine color determination YELLOW NRG Urine clarity determination CLEAR NRG Urine pH measurement by test strip 5 5-9 Specific gravity of urine by test strip 1.020 1.016- 1.022 Urine protein assay by test strip, semi-quantitative 1+ NEGATIVE Urine glucose detection by automated test strip NEGATIVE NEGATIVE Erythrocytes detection in urine sediment by light microscopy NEGATIVE NEGATIVE Urine ketones detection by automated test [...] count by microscopy (number/high power field ) NONE NRG Bacteria detection in urine sediment by [...] blood glucose measurement by glucometer (mass/volume) - 06/25/17 08: 59 Capillary blood glucose measurement by glucometer (mass/volume) 234 mg/dL 70-110 C DIFFICILE AG + TOXIN A/B. - 07/12/17 14:00 RESULTS NEGATIVE FOR ANTIGEN AND TOXIN A/B NRG Encounters ACCT No. Visit Date/Time Discharge Status Pt. Type Provider Facility Loc./Unit Complaint [id number] 04/23/2018 15:30:00 04/23/2018 23:59:59 CLS Outpatient DAMARIS VALADEZ MD [facility] ONC [id number] 03/28/2018 09:56:00 04/23/2018 13:11:00 DIS Outpatient ARABELLA BILLY MD [facility] ONC [id number] 02/26/2018 15:09:00 03/27/2018 09:33:00 DIS Outpatient ARABELLA BILLY MD [facility] ONC [id number] 03/21/2018 10:46:00 03/21/2018 23:59:59 CLS Outpatient ARABELLA BILLY MD [facility] RAD RENAL CELL CARCINOMA [id number] 12/05/2017 14:29:00 12/05/2017 23:59:59 CLS Outpatient ARABELLA BILLY MD [facility] ONC [id number] 10/10/2017 15:10:00 10/10/2017 00:01:00 DIS Outpatient ARABELLA BILLY MD [facility] ONC [id number] 09/12/2017 14:44:00 09/12/2017 23:59:59 CLS Outpatient ARABELLA BILLY MD [facility] RAD C64.9 CARCINOMA [id number] 07/04/2017 11:37:00 07/07/2017 00:01:00 DIS Outpatient ARABELLA BILLY MD [facility] ONC [id number] 06/25/2017 06:53:00 06/25/2017 09:35:00 DIS Emergency DAVID DO, KENDELL K [facility] ER LOW BLOOD SUGAR [id number] 04/19/2017 14:45:00 04/20/2017 12:15:00 DIS Inpatient BARBARA FAUST MD [facility] 4TH LUNG NODULE [id number] 04/10/2017 12:25:00 04/10/2017 23:59:59 CLS Outpatient ARABELLA BILLY MD [facility] RAD CARCINOMA RENAL CELL [id number] 03/07/2017 15:52:00 03/07/2017 23:59:59 CLS Outpatient BEREKET MARTINEZ MD [facility] RAD RENAL CA [id number] 11/09/2016 07:56:00 02/07/2017 00:01:00 DIS Outpatient ARABELLA BILLY MD [facility] ONC [id number] 12/19/2016 15:21:00 12/19/2016 23:59:59 CLS Outpatient VIOLET DOE MD [facility] RAD RENAL MASS [id number] 11/02/2016 11:12:00 11/04/2016 13:45:00 DIS Inpatient FARHAN COYLE DO [facility] 4TH SEPSIS,PHARYNGITIS,UTI, RENAL MASS [id number] 10/15/2016 15:43:00 10/15/2016 23:59:59 CLS Outpatient OMEGA SCOTT MD [facility] RAD 54.2 M54.14 NECK PAIN, CLAUDICATION [id number] 09/20/2016 15:26:00 09/20/2016 23:59:59 CLS Outpatient DADA BRANDTDANIEL [facility] RAD SCOLIOSIS [id number] 09/12/2016 17:18:00 09/12/2016 23:59:59 CLS Outpatient KAROLINA BONDS APRN [facility] LAB BILAT JOINT PAIN [id number] 09/06/2016 11:33:00 09/06/2016 23:59:59 CLS Outpatient DADA BRANDTDANIEL [facility] CARD MONO KNEE PAIN [id number] 11/28/2015 10:30:00 12/01/2015 09:48:00 DIS Outpatient DADA BRANDTDANIEL [facility] REHAB S/P L TOTAL KNEE [id number] 09/20/2015 09:50:00 09/23/2015 11:22:00 DIS Inpatient DANIEL GARLAND DO [facility] 4TH RIGHT KNEE [id number] 09/09/2015 08:52:00 09/09/2015 13:43:00 DIS Outpatient DADA DODANIEL [facility] PREOP RIGHT KNEE [id number] 06/18/2014 16:30:00 06/21/2014 11:49:00 DIS Outpatient DADA BRANDT DANIEL Steven [facility] REHAB ARTHROFIBROSIS L KNEE S/P SERA S/P L TKA [id number] 12/21/2013 14:57:00 02/08/2014 00:01:00 DIS Outpatient DADA BRANDT DANIEL Steven [facility] REHAB S/P L TKR [id number] 12/16/2013 11:37:00 12/16/2013 23:59:59 CLS Outpatient KAROLINA BONDS BARNEY [facility] LABNPT (L)KNEE PAIN S/P (L) TKA [id number] 10/29/2013 14:30:00 10/29/2013 23:59:59 CLS Outpatient DANIEL GARLAND DO [facility] HH TKR, ANTICOAG THERAPY [id number] 10/20/2013 10:42:00 10/24/2013 13:30:00 DIS Inpatient DANIEL GARLAND DO [facility] SURGICAL LEFT KNEE DEGENERATIVE JOINT DISEASE [id number] 10/13/2013 09:51:00 10/13/2013 23:59:59 CLS Outpatient DANIEL GARLAND DO [facility] PREOP LEFT KNEE DEGENERATIVE JOINT DISEASE [id number] 06/08/2013 18:34:00 06/12/2013 13:15:00 DIS Inpatient BOONE ABAD MD [facility] 4TH INFLUENZA A, HYPOXIA [id number] 01/16/2013 15:49:00 01/16/2013 23:59:59 CLS Outpatient VALERIE BARRIOS MD [facility] RAD LOCKING RT KNEE [id number] 01/13/2013 15:51:00 01/13/2013 23:59:59 CLS Outpatient VALERIE BARRIOS MD [facility] RAD LOCKING RT KNEE [id number] 11/17/2012 15:58:00 11/17/2012 23:59:59 CLS Outpatient [id number] 06/18/2014 16:32:57 ACT Document Registration
[2018-05-07] MEDS ORDERED: RT-ALBUTEROL/IPRATROPIUM 3 ML (DUONEB) VIAL ONE (16:52)
[2018-05-07 17:10] LABS: BASOPHILS % (AUTO) 0 % (0-10); EOSINOPHILS # (AUTO) 0.2 10^3/uL (0.0-0.3); EOSINOPHILS % (AUTO) 1 % (0-10); HEMATOCRIT 37 % (40-54); HEMOGLOBIN 11.4 G/DL (13.3-17.7); LYMPHOCYTES # (AUTO) 1.9 X 10^3 (1.0-4.0); LYMPHOCYTES % (AUTO) 9 % (12-44); MEAN CORPUSCULAR HEMOGLOBIN 30 PG (25-34); MEAN CORPUSCULAR HGB CONC 31 G/DL (32-36); MEAN CORPUSCULAR VOLUME 96 FL (80-99); MEAN PLATELET VOLUME 9.7 FL (7.4-10.4); MONOCYTES # (AUTO) 1.2 X 10^3 (0.0-1.0); MONOCYTES % (AUTO) 6 % (0-12); NEUTROPHILS # (AUTO) 16.6 X 10^3 (1.8-7.8); NEUTROPHILS % (AUTO) 84 % (42-75); PLATELET COUNT 256 10^3/uL (130-400); RED BLOOD COUNT 3.83 10^6/uL (4.35-5.85); RED CELL DISTRIBUTION WIDTH 13.9 % (10.0-14.5); WHITE BLOOD COUNT 19.9 10^3/uL (4.3-11.0)
[2018-05-07 17:25] LABS: ALBUMIN 3.6 GM/DL (3.2-4.5); BILIRUBIN,TOTAL 0.3 MG/DL (0.1-1.0); CALCIUM 10.1 MG/DL (8.5-10.1); CREATININE SERUM 2.76 MG/DL (0.60-1.30); POTASSIUM 5.2 MMOL/L (3.6-5.0)
[2018-05-07 17:35] LABS: BAND NEUTROPHILS 12 %; BASOPHILS % (MANUAL) 0 %; EOSINOPHILS % (MANUAL) 0 %; LYMPHOCYTES % (MANUAL) 15 %; MONOCYTES % (MANUAL) 4 %; NEUTROPHILS % (MANUAL) 69 %
[2018-05-07 17:36] LABS: RBC MORPH NORMAL
--- NOTE | 2018-05-07 17:36 | Diagnostic Imaging Report ---
INDICATION: Productive cough and shortness of breath. Frontal chest obtained at 05:08 p.m. and is compared with 04/20/2017. There is cardiomegaly. There is worsening infiltrate in the left lung base. There is new infiltrate in the right lung base. There is no pneumothorax or gross pleural fluid. IMPRESSION: Bibasilar infiltrates worsened on the left side compared to the prior study and new on the right side. The findings are suspicious for pneumonia. Follow-up is recommended. Dictated by: Dictated on workstation # [id number]
--- NOTE | 2018-05-07 17:56 | ED Respiratory ---
General Chief Complaint: Respiratory Problems Stated Complaint: SOB,COLD SYMPTOMS Nursing Triage Note: PT CO OF SOA SENT FROM [facility]. W LOW O2 SAT Source: patient Exam Limitations: no limitations History of Present Illness Date Seen by Provider: May 07, 2018 Time Seen by Provider: 16:40 Initial Comments Patient is a 62-year-old male who was sent over to the emergency room from the [facility] for complaints of low oxygen saturation. He was having sutures removed this evening on his chest wall from a cyst removal and during his vital signs assessment it was found that his oxygen saturation was in the 70s. On arrival to the emergency room he was found to have oxygen saturation of 70% on room air. He denies any shortness of breath at this time and reports that he's had a respiratory cold for the past few days. He is alert and oriented and answers questions appropriately, He has history of lung cancer and he receives weekly injections of chemotherapy. Current smoker. Sees Dr. Nation and Dr. Mcneil Timing/Duration: just prior to arrival Associated Symptoms: cough, nasal congestion Allergies and Home Medications Allergies Coded Allergies: meperidine (Verified Allergy, Unknown, RASH, Pt has received Fentanyl w/o issue, 04/19/17) Home Medications Ascorbic Acid 500 Mg Tablet, 500 MG PO DAILY, (Reported) Calcium Carbonate/Vitamin D3 1 Each Tablet, 1 TAB PO BID, (Reported) Cholecalciferol (Vitamin D3) 2,000 Unit Capsule, 2,000 UNIT PO DAILY, (Reported) Colestipol HCl 1 Gm Tablet, 2 GM PO BID, (Reported) TAKES 2 (1GM) TABLET Ferrous Sulfate 325 Mg Tablet, 325 MG PO BID, (Reported) Gabapentin 300 Mg Capsule, 300 MG PO TID, (Reported) Glimepiride 4 Mg Tablet, 4 MG PO BID, (Reported) Insulin Detemir 100 Unit/1 Ml Insuln.pen, 20 UNITS SC HS, (Reported) Krill/Om-3/Dha/Epa/Phospho/Ast 1 Each Capsule, 1 CAP PO DAILY, (Reported) Lisinopril 20 Mg Tablet, 20 MG PO DAILY, (Reported) Lutein 20 Mg Tablet, 40 MG PO BID, (Reported) Magnesium Oxide 400 Mg Tablet, 400 MG PO DAILY, (Reported) Metformin HCl 500 Mg Tablet, 500 MG PO BID, (Reported) Potassium Gluconate 99 Mg Tablet, 99 MG PO DAILY, (Reported) Flako AC/Safflower Oil 52 Ml Oil, TP BID, (Reported) APPLY TO SCARS Patient Home Medication List Home Medication List Reviewed: Yes Review of Systems Review of Systems Constitutional: see HPI; No chills, No fever EENTM: see HPI, nose congestion Respiratory: see HPI, cough, other (low oxygen saturation) All Other Systems Reviewed Negative Unless Noted: Yes Past Aeaijkr-Yqmuds-Lgmjkp Hx Past Med/Social Hx: Reviewed Nursing Past Med/Soc Hx Patient Social History Type Used: Cigarettes Recent Foreign Travel: No Contact w/Someone Who Travel: No Recent Infectious Disease Expo: No Recent Hopitalizations: No Immunizations Up To Date Tetanus Booster (TDap): More than 5yrs Date of Pneumonia Vaccine: Sep 08, 2014 Date of Influenza Vaccine: Mar 04, 2017 Seasonal Allergies Seasonal Allergies: No Past Medical History Surgeries: Yes Abdominal, Ear Surgery, Eye Surgery, Gallbladder, Joint Replacement, Nephrectomy , Orthopedic Respiratory: Yes (LUNG BIOPSY/PNEUMOTHORAX; LUNG CANCER) Pneumonia, Chronic Bronchitis Currently Using CPAP: No Currently Using BIPAP: No Cardiac: Yes Hypertension Neurological: No Reproductive Disorders: No HIV/AIDS: No Genitourinary: Yes (RENAL CANCER--LEFT NEPHRECTOMY) Gastrointestinal: Yes Chronic Diarrhea, Polyps Musculoskeletal: Yes (FX LEG, COLLAR BONE, RIBS, FOOT; OSTEOARTHRITIS KNEES) Degenerate Disk Disease, Arthritis, Chronic Back Pain Endocrine: Yes Diabetes, Insulin dep HEENT: Yes Cataract Loss of Vision: Bilateral Hearing Impairment: Hard of Hearing Cancer: Yes Lung, Kidney Did You Recieve Any Treatments: Yes What Type of Treatment Did You: Chemotherapy, Surgical Intervention Psychosocial: No Integumentary: No Blood Disorders: No Adverse Reaction/Blood Tranf: No Family Medical History Reviewed Nursing Family Hx Diabetes mellitus 19 FATHER 19 MOTHER G8 BROTHER FH: skin cancer 19 MOTHER Family history: Arthritis Family history: Coronary thrombosis Family history: Diabetes mellitus History of - respiratory disease No Family History of: Abdominal aortic aneurysm [place]'s disease Alcoholism Aphasia Cancer Cancer of colon Cataract Chest pain Congenital heart disease Congestive heart failure Cystic fibrosis Dementia Dysphagia Family history: Allergy Family history: Alzheimer's disease Family history: Asthma Family history: Breast disease Family history: Cardiovascular disease Family history: Gastrointestinal disease Family history: Glaucoma Family history: Hypertension Family history: Osteoporosis Family history: Thyroid disorder Headache Hearing loss Heart disease Hereditary disease History of - anemia History of - disorder History of drug abuse Human immunodeficiency virus (HIV) seropositivity Hypercholesterolemia Infertile Kidney disease Malignant neoplasm of lung Myocardial infarction Parkinson's disease Prostate cancer Psychotic disorder Seizure disorder Stroke Tuberculosis Visual impairment No Pertinent Family Hx Physical Exam Vital Signs - First Documented Capillary Refill : Less Than 3 Seconds Height: 6'4.00" Weight: 195lbs. 0.1oz. 88.983083mf; 27.1 BMI Method:Stated General Appearance: WD/WN, no apparent distress Eyes: Bilateral Eye PERRL, Bilateral Eye EOMI Respiratory: chest non-tender, no respiratory distress, no accessory muscle use , wheezing (faint wheezes throughout all lung mccray.) Cardiovascular: normal peripheral pulses, regular rate, rhythm, no edema, no gallop, no JVD, no murmur Gastrointestinal: normal bowel sounds, non tender, soft, no organomegaly, no pulsatile mass Extremities: normal capillary refill Neurologic/Psychiatric: alert, normal mood/affect, oriented x 3 Skin: normal color, warm/dry Focused Exam Lactate Level 05/07/18 16:48: Lactic Acid Level 0.75 Lactic Acid Level Laboratory Tests Test 05/07/18 16:48 Lactic Acid Level 0.75 MMOL/L (0.50-2.00) Progress/Results/Core Measures Suspected Sepsis Recent Fever Within 48 Hours: No Infection Criteria Present: None New/Unexplained Altered Menta: No Sepsis Screen: No Definite Risk SIRS Temperature:97.4 Pulse: 107 Respiratory Rate: 24 Laboratory Tests 05/07/18 16:48: White Blood Count 19.9H Blood Pressure 107 /61 Mean: 76 05/07/18 16:48: Lactic Acid Level 0.75 Laboratory Tests 05/07/18 16:48: Platelet Count 256, Total Bilirubin 0.3 Results/Orders Lab Results Laboratory Tests Test 05/07/18 16:48 Range/Units White Blood Count 19.9 H 4.3-11.0 10^3/uL Red Blood Count 3.83 L 4.35-5.85 10^6/uL Hemoglobin 11.4 L 13.3-17.7 G/DL Hematocrit 37 L 40-54 % Mean Corpuscular Volume 96 80-99 FL Mean Corpuscular Hemoglobin 30 25-34 PG Mean Corpuscular Hemoglobin Concent 31 L 32-36 G/DL Red Cell Distribution Width 13.9 10.0-14.5 % Platelet Count 256 130-400 10^3/uL Mean Platelet Volume 9.7 7.4-10.4 FL Neutrophils (%) (Auto) 84 H 42-75 % Lymphocytes (%) (Auto) 9 L 12-44 % Monocytes (%) (Auto) 6 0-12 % Eosinophils (%) (Auto) 1 0-10 % Basophils (%) (Auto) 0 0-10 % Neutrophils # (Auto) 16.6 H 1.8-7.8 X 10^3 Lymphocytes # (Auto) 1.9 1.0-4.0 X 10^3 Monocytes # (Auto) 1.2 H 0.0-1.0 X 10^3 Eosinophils # (Auto) 0.2 0.0-0.3 10^3/uL Basophils # (Auto) 0.0 0.0-0.1 10^3/uL Neutrophils % (Manual) 69 % Lymphocytes % (Manual) 15 % Monocytes % (Manual) 4 % Eosinophils % (Manual) 0 % Basophils % (Manual) 0 % Band Neutrophils 12 % Blood Morphology Comment NORMAL Sodium Level 136 135-145 MMOL/L Potassium Level 5.2 H 3.6-5.0 MMOL/L Chloride Level 99 98-107 MMOL/L Carbon Dioxide Level 26 21-32 MMOL/L Anion Gap 11 5-14 MMOL/L Blood Urea Nitrogen 64 H 7-18 MG/DL Creatinine 2.76 H 0.60-1.30 MG/DL Estimat Glomerular Filtration Rate 23 BUN/Creatinine Ratio 23 Glucose Level 207 H 70-105 MG/DL Lactic Acid Level 0.75 0.50-2.00 MMOL/L Calcium Level 10.1 8.5-10.1 MG/DL Corrected Calcium 10.4 H 8.5-10.1 MG/DL Total Bilirubin 0.3 0.1-1.0 MG/DL Aspartate Amino Transf (AST/SGOT) 33 5-34 U/L Alanine Aminotransferase (ALT/SGPT) 39 0-55 U/L Alkaline Phosphatase 121 40-136 U/L Total Protein 7.0 6.4-8.2 GM/DL Albumin 3.6 3.2-4.5 GM/DL Micro Results Microbiology 05/07/18 Blood Culture - Preliminary, Resulted No growth 05/07/18 Blood Culture - Preliminary, Resulted No growth My Orders Orders - JEMIMA BARBOSA Cbc With Automated Diff (05/07/18 16:57) Comprehensive Metabolic Panel (05/07/18 16:57) Chest 1 View, Ap/Pa Only (05/07/18 16:57) O2 (05/07/18 16:57) Saline Lock/Iv-Start (05/07/18 16:57) Monitor-Rhythm Ecg Trace Only (05/07/18 16:57) Blood Culture (05/07/18 16:57) Influenza A And B Antigens (05/07/18 16:57) Lactic Acid Analyzer (05/07/18 16:57) General/Regular (05/08/18 Dinner) Manual Differential (05/07/18 16:48) Medications Given in ED Vital Signs/I&O 05/07/18 05/07/18 05/07/18 16:40 16:40 16:58 Temp 97.4 Pulse 107 Resp 24 B/P (MAP) 107/61 (76) Pulse Ox 91 93 90 O2 Delivery Nasal Cannula Nasal Cannula Nasal Cannula O2 Flow Rate 5.00 6.00 4.00 Capillary Refill : Less Than 3 Seconds Blood Pressure Mean: 76 Progress Note : Time: 18:00 Progress Note I have seen and evaluated the patient. His oxygen saturation has improved with oxygen via nasal canula and wheezing is no longer auscultated after breathing treatment. I have informed him of plans for admission and he agrees with plan of care. Dr. Araya agrees to accept the patient to hospitalist services. He has had blood pressures that have been in the 90s systolic but map still 65 and above. He continues to put his hand up on the bed while sleeping and it keeps having readings that are borderline hypotensive. Once the hand is placed down blood pressure rises to about 100 systolic. I discussed the case with Dr. Cloud and he has reviewed the laboratory results and he recommends giving the 3 L of normal saline for sepsis protocol as a precautionary measure. Diagnostic Imaging Diagonstic Imaging: Xray Plain Films/CT/US/NM/MRI: chest Comments NAME: [facility] REC#: [id number] PHYSICIAN: JEMIMA BARBOSA CC: JEMIMA BARBOSA; DANIEL SALINAS MD Page 1 of 1 [facility]PORT [facility] [place] [place] CC: JEMIMA BARBOSA; DANIEL SALINAS MD Page 1 of 1 RADIOLOGY REPORT NAME: [facility] REC#: [id number] PT STATUS: ADM IN : 1955 PHYSICIAN: JEMIMA BARBOSA ADMIT DATE: 05/07/18/ Signed Date of Exam: 05/07/18 CHEST 1 VIEW, AP/PA ONLY INDICATION: Productive cough and shortness of breath. Frontal chest obtained at 05:08 p.m. and is compared with 04/20/2017. There is cardiomegaly. There is worsening infiltrate in the left lung base. There is new infiltrate in the right lung base. There is no pneumothorax or gross pleural fluid. IMPRESSION: Bibasilar infiltrates worsened on the left side compared to the prior study and new on the right side. The findings are suspicious for pneumonia. Follow-up is recommended. Dictated by: Dictated on workstation # [id number] Dict: 05/07/181729 Trans: 05/07/181826 Interpreted by: DANIEL SALINAS MD Electronically signed by: DANIEL SALINAS MD 05/07/181826 Reviewed: Reviewed by Me Departure Communication (Admissions) Time/Spoke to Admitting Phy: 18:[address] Araya at this time she agrees to accept the patient to her services. Recommends Zosyn for IV antibiotic coverage. Impression Primary Impression: Pneumonia Disposition: HOME, SELF-CARE Condition: Stable/Unchanged Admissions Decision to Admit Reason: Admit from ER (General) Decision to Admit/Date: May 07, 2018 Time/Decision to Admit Time: 18:00 Departure-Patient Inst. Referrals: AMINAH NATION MD (PCP/Family) Primary Care Physician JEMIMA BARBOSA May 07, 2018 17:56
--- OUTSIDE RECORDS SUMMARY | 2018-05-07 18:41 | XMS REPORT | Clinical Summary ---
Author Author [facility] Organization [facility] Address Unknown Phone Unavailable Care Team Providers Care Electrical Troubleshooter Name Role Phone Silver Nation MD PCP Source Comments Some departments are not documenting in the electronic medical record. If you do not see the information that you expected, contact Release of Information in the Health Information Management department at [phone] for further assistance in locating additional records.[facility] Allergies No Known Allergies Current Medications Prescription [...] Dose. Focus factor 1 Active capsule daily. [id number] Take 1 Cap by mouth Active -Astx [...] Incidentally detected on spine MRI September 2016. [id number] mass. 1.1cm right lower lobe lung nodule along with slightly enlarged right hilar and infracarinal lymph nodes. Asymptomatic. 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 Margins negative. 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 06/07/17: Large left lower lobe lung nodule biopsied as RCC by medical oncology at [facility] and is scheduled to start Pazopanib soon. 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 Pulse 70 06/07/2017 10:49 AM COAL TRIMMER MACHINE OPERATOR Temperature 36.9 C (98.4 F) 03/01/2017 12:20 PM CDT Respiratory Rate 18 03/01/2017 12:20 PM CDT Oxygen Saturation 94% 03/01/2017 12:20 PM CDT Inhaled Oxygen - - Concentration Weight 94.3 kg (208 lb) 06/07/2017 10:49 AM COAL TRIMMER MACHINE OPERATOR Height 193 cm (6' 4") 06/07/2017 10:49 AM COAL TRIMMER MACHINE OPERATOR Body Mass Index 25.32 06/07/2017 10:49 AM COAL TRIMMER MACHINE OPERATOR Plan of Treatment Health Maintenance Due Date Last Done Comments HEPATITIS C SCREENING 1955 PHYSICAL (COMPREHENSIVE) 1962 EXAM HIV SCREENING 1970 DTAP/TDAP VACCINES (1 - 1973 Tdap) COLORECTAL CANCER 2005 SCREENING SHINGLES RECOMBINANT 2005 VACCINE (1 of 2) INFLUENZA VACCINE 01/01/2018 06/12/2013 Results Not on filefrom Last 3 Months
--- OUTSIDE RECORDS SUMMARY | 2018-05-07 18:44 | XMS REPORT | Continuity of Care Document ---
Author Author [facility] Organization [facility] Address Unknown Phone Unavailable Allergies Active Description Code Type Severity Reaction Onset Reported/Identified Relationship to Patient Clinical Status Yes meperidine [id number] Drug Allergy Unknown RASH 11/02/2016 Yes meperidine [id number] Drug Allergy Unknown RASH, Pt has re [...] BILLY MD, Ot R91.1 SOLITARY PULMONARY NODULE ARABELLA BILLY MD, Ot Z51.11 ENCOUNTER FOR ANTINEOPLASTIC CHEMOTHERAP ARABELLA BILLY MD, Ot Z79.4 CORRECTION (CURRENT) USE OF INSULIN ARABELLA BILLY MD, Ot Z79.899 OTHER PHYSICAL SECURITY SPECIALIST (CURRENT) DRUG THERAPY DANIEL GARLAND DO Ot [...] MD Ot 305.1 TOBACCO USE DISORDER 06/12/2013 BONOE ABAD MD Ot 389.9 HEARING LOSS NOS [...] Steven Ot V72.84 06/08/2014 DADA DO, DANIEL Setven Ot V74.8 06/08/2014 DADA DO, DANIEL Steven Ot V43.65 06/08/2014 DADA DO, DANIEL Steven Ot V58.61 06/08/2014 DADA DO, DANIEL Steven Ot V58.83 06/08/2014 VAMSHIKAROLINA FIELD STAFF MANAGER Ot 719.06 06/08/2014 VAMSHI KAROLINA Mavis FIELD STAFF MANAGER Ot 719.46 06/08/2014 VAMSHI KAROLINA E FIELD STAFF MANAGER Ot V43.65 06/21/2014 DADA DO, DANIEL Steven [...] ENCOUNTER FOR OTHER PREPROCEDURAL EXAMIN 09/09/2015 DADA DANIEL BRANDT Ot Z11.2 ENCOUNTER FOR SCREENING FOR [...] 09/23/2015 DADA BRANDT DANIEL Steven Ot Z79.4 CORRECTION (CURRENT) USE OF INSULIN 11/23/2015 DADA BRANDT [...] EXAMINATION 09/06/2016 DANIEL GARLAND DO Ot V72.81 CGJI-BCT-ORWOQIBGR CARDIOVASCULAR 09/06/2016 DANIEL GARLAND DO Ot V72.83 EXAM PRE-OPERATIVE NEC 09/06/2016 DANIEL GARLAND DO Ot V72.84 EXAM PRE-OPERATIVE NOS 09/06/2016 DADA BRANDT DANIEL Steven Ot V74.8 SCREEN-BACTERIAL DIS NEC 09/06/2016 DADA BRANDT, DANIEL Steven Ot V43.65 KNEE JOINT REPLACEMENT STATUS 09/06/2016 DADA BRANDT, DANIEL Steven Ot V58.61 ANTICOAGULANTS,LT,CURRENT USE 09/06/2016 DADA BRANDT, DANIEL Steven Ot V58.83 ENCOUNTER FOR THERAPEUTIC DRUG MONITORIN 09/06/2016 KAROLINA BONDS FIELD STAFF MANAGER Ot 719.06 JOINT EFFUSION-L/LEG 09/06/2016 KAROLINA BONDS FIELD STAFF MANAGER Ot 719.46 JOINT PAIN-L/LEG 09/06/2016 KAROLINA BONDS FIELD STAFF MANAGER Ot V43.65 KNEE JOINT REPLACEMENT STATUS 09/07/2016 [...] OTHER INTERVERTEBRAL DISC DEGENERATION, 09/28/2016 KAROLINA BONDS FIELD STAFF MANAGER Ot M25.561 PAIN IN RIGHT KNEE 09/28/2016 KAROLINA BONDS FIELD STAFF MANAGER Ot M25.562 PAIN IN LEFT KNEE 09/28/2016 KAROLINA BONDS FIELD STAFF MANAGER Ot M79.1 MYALGIA 10/10/2016 DADA BRANDT DANIEL Steven Ot M48.06 SPINAL STENOSIS, LUMBAR REGION 10/10/2016 DADA BRANDT DANIEL Maurizio Ot M51.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 DISC DEGENERATION, 10/17/2016 OMEGA SOCTT MD Ot 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 10/17/2016 OMEGA SCOTT MD Ot M54.14 RADICULOPATHY, THORACIC REGION 10/17/2016 OMEGA SCOTT MD Ot M54.2 CERVICALGIA 10/31/2016 OMEGA SCOTT MD Ot 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 10/31/2016 OMEGA [...] KAIN 11/04/2016 FARHAN COYLE DO Ot Z79.4 CORRECTION (CURRENT) USE OF INSULIN 11/04/2016 FARHAN COYLE DO Ot Z79.84 CORRECTION (CURRENT) USE OF ORAL HYPOGLYC 11/09/2016 REVEAL [...] EXAMINATION 11/09/2016 DANIEL GARLAND DO Ot V72.81 OGJJ-PTL-UODNNOLRD CARDIOVASCULAR 11/09/2016 DANIEL GARLAND DO Ot V72.83 EXAM PRE-OPERATIVE NEC 11/09/2016 DANIEL GARLAND DO Ot V72.84 EXAM PRE-OPERATIVE NOS 11/09/2016 DANIEL GARLAND DO Ot V74.8 SCREEN-BACTERIAL DIS NEC 11/09/2016 DANIEL GARLAND DO Ot V43.65 KNEE JOINT REPLACEMENT STATUS 11/09/2016 DANIEL GARLAND DO Ot V58.61 ANTICOAGULANTS,LT,CURRENT USE 11/09/2016 DANIEL GARLAND DO Ot V58.83 ENCOUNTER FOR THERAPEUTIC DRUG MONITORIN 11/09/2016 KAROLINA BONDS FIELD STAFF MANAGER Ot 719.06 JOINT EFFUSION-L/LEG 11/09/2016 KAROLINA BONDS FIELD STAFF MANAGER Ot 719.46 JOINT PAIN-L/LEG 11/09/2016 KAROLINA BONDS FIELD STAFF MANAGER Ot V43.65 KNEE JOINT REPLACEMENT STATUS 11/09/2016 DANIEL GARLAND DO Ot M25.561 PAIN IN RIGHT KNEE 11/09/2016 DANIEL GARLAND DO Ot M25.562 PAIN IN LEFT KNEE 11/09/2016 DANIEL GARLAND DO Ot Z96.653 PRESENCE OF ARTIFICIAL KNEE JOINT, BILAT 11/09/2016 KAROLINA BONDS FIELD STAFF MANAGER Ot M25.561 PAIN IN RIGHT KNEE 11/09/2016 KAROLINA BONDS FIELD STAFF MANAGER Ot M25.562 PAIN IN LEFT KNEE 11/09/2016 KAROLINA BONDS FIELD STAFF MANAGER Ot M79.1 MYALGIA 11/09/2016 DANIEL GARLAND DO Ot M48.06 SPINAL STENOSIS, LUMBAR REGION 11/09/2016 DANIEL GARLAND DO Ot M51.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 DISC DEGENERATION, 11/09/2016 OMEGA SCOTT MD Ot 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 11/09/2016 OMEGA [...] NODULE 12/14/2016 ARABELLA BILLY MD Ot Z79.4 CORRECTION (CURRENT) USE OF INSULIN 12/14/2016 ARABELLA BILLY MD, Ot Z79.899 OTHER PHYSICAL SECURITY SPECIALIST (CURRENT) DRUG THERAPY 12/19/2016 VALERIE BARRIOS MD Ot 719.66 JOINT SYMPTOM NEC-L/LEG 12/19/2016 VALERIE BARRIOS MD Ot 715.36 LOC OSTEOARTH NOS-L/LEG 12/19/2016 VALERIE BARRIOS MD Ot 717.2 DERANG POST MED MENISCUS 12/19/2016 VALERIE BARRIOS MD Ot 719.06 JOINT EFFUSION-L/LEG 12/19/2016 DANIEL GARLAND DO Ot 715.36 LOC OSTEOARTH NOS-L/LEG 12/19/2016 DANIEL GARLAND DO Ot V72.63 PRE-PROCEDURAL LABORATORY EXAMINATION 12/19/2016 DANIEL GARLAND DO Ot V72.81 OOHO-TKC-BRQTYLKSZ CARDIOVASCULAR 12/19/2016 DANIEL GARLAND DO Ot V72.83 EXAM PRE-OPERATIVE NEC 12/19/2016 DANIEL GARLAND DO Ot V72.84 EXAM PRE-OPERATIVE NOS 12/19/2016 DANIEL GARLAND DO Ot V74.8 SCREEN-BACTERIAL DIS NEC 12/19/2016 DANIEL GARLAND DO Ot V43.65 KNEE JOINT REPLACEMENT STATUS 12/19/2016 DANIEL GARLAND DO Ot V58.61 ANTICOAGULANTS,LT,CURRENT USE 12/19/2016 DANIEL GARLAND DO Ot V58.83 ENCOUNTER FOR THERAPEUTIC DRUG MONITORIN 12/19/2016 KAROLINA BONDS FIELD STAFF MANAGER Ot 719.06 JOINT EFFUSION-L/LEG 12/19/2016 KAROLINA BONDS FIELD STAFF MANAGER Ot 719.46 JOINT PAIN-L/LEG 12/19/2016 KAROLINA BONDS FIELD STAFF MANAGER Ot V43.65 KNEE JOINT REPLACEMENT STATUS 12/19/2016 DANIEL GARLAND DO Ot M25.561 PAIN IN RIGHT KNEE 12/19/2016 DANIEL GARLAND DO Ot M25.562 PAIN IN LEFT KNEE 12/19/2016 DANIEL GARLAND DO Ot Z96.653 PRESENCE OF ARTIFICIAL KNEE JOINT, BILAT 12/19/2016 KAROLINA BONDS FIELD STAFF MANAGER Ot M25.561 PAIN IN RIGHT KNEE 12/19/2016 KAROLINA BONDS FIELD STAFF MANAGER Ot M25.562 PAIN IN LEFT KNEE 12/19/2016 KAROLINA BONDS FIELD STAFF MANAGER Ot M79.1 MYALGIA 12/19/2016 DANIEL GARLAND DO Ot M48.06 SPINAL STENOSIS, LUMBAR REGION 12/19/2016 DADA BRANDT DANIEL Steven Ot M51.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 DISC DEGENERATION, 12/19/2016 SONIA WILDER, OMEGA Meyer Ot 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 12/19/2016 OMEGA [...] NODULE 12/19/2016 ARABELLA BILLY MD Ot Z79.4 PHYSICAL SECURITY SPECIALIST (CURRENT) USE OF INSULIN 12/19/2016 ARABELLA BILLY MD, Ot Z79.899 OTHER PHYSICAL SECURITY SPECIALIST (CURRENT) DRUG THERAPY 12/20/2016 VIOLET DOE MD [...] NODULE 02/07/2017 ARABELLA BILLY MD, Ot Z79.4 PHYSICAL SECURITY SPECIALIST (CURRENT) USE OF INSULIN 02/07/2017 ARABELLA BILLY MD, Ot Z79.899 OTHER CORRECTION (CURRENT) DRUG THERAPY 02/13/2017 ARABELLA BILLY MD, Ot 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 NEOPLASM OF LEFT KIDNEY, EXCEP 02/13/2017 ARABELLA BILLY MD Ot E11.9 TYPE 2 DIABETES MELLITUS WITHOUT COMPLIC 02/13/2017 ARABELLA BILLY MD, Ot F17.210 NICOTINE DEPENDENCE, CIGARETTES, UNCOMPL 02/13/2017 ARABELLA BILLY MD Ot I10 ESSENTIAL (PRIMARY) HYPERTENSION 02/13/2017 ARABELLA BILLY MD Ot R91.1 SOLITARY PULMONARY NODULE 02/13/2017 ARABELLA BILLY MD, Ot Z79.4 CORRECTION (CURRENT) USE OF INSULIN 02/13/2017 ARABELLA BILLY MD Ot Z79.899 OTHER PHYSICAL SECURITY SPECIALIST (CURRENT) DRUG THERAPY 03/08/2017 BEREKET MARTINEZ MD Ot 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 NEOPLASM OF LEFT KIDNEY, EXCEP 03/08/2017 BEREKET MARTINEZ MD Ot 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 03/08/2017 BEREKET MARTINEZ MD Ot R91.8 OTHER NONSPECIFIC ABNORMAL FINDING OF KAIN 03/08/2017 BEREKET MARTINEZ MD Ot Z90.49 ACQUIRED ABSENCE OF OTHER SPECIFIED PART 03/08/2017 BEREKET MARTINEZ MD Ot Z90.5 ACQUIRED ABSENCE [...] NODULE 04/09/2017 ARABELLA BILLY MD Ot Z79.4 CORRECTION (CURRENT) USE OF INSULIN 04/09/2017 ARABELLA BILLY MD Ot Z79.899 OTHER PHYSICAL SECURITY SPECIALIST (CURRENT) DRUG THERAPY 04/19/2017 VALERIE BARRIOS MD Ot 719.66 JOINT SYMPTOM NEC-L/LEG 04/19/2017 VALERIE BARRIOS MD Ot 715.36 LOC OSTEOARTH NOS-L/LEG 04/19/2017 VALERIE BARRIOS MD Ot 717.2 DERANG POST MED MENISCUS 04/19/2017 VALERIE BARRIOS MD Ot 719.06 JOINT EFFUSION-L/LEG 04/19/2017 DANIEL GARLAND DO Ot 715.36 LOC OSTEOARTH NOS-L/LEG 04/19/2017 DANIEL GARLAND DO Ot V72.63 PRE-PROCEDURAL LABORATORY EXAMINATION 04/19/2017 DANIEL GARLAND DO Ot V72.81 VWOI-PNH-VTFEHJOKO CARDIOVASCULAR 04/19/2017 DANIEL GARLAND DO Ot V72.83 EXAM PRE-OPERATIVE NEC 04/19/2017 DANIEL GARLAND DO Ot V72.84 EXAM PRE-OPERATIVE NOS 04/19/2017 DANIEL GARLAND DO Ot V74.8 SCREEN-BACTERIAL DIS NEC 04/19/2017 DANIEL GARLAND DO Ot V43.65 KNEE JOINT REPLACEMENT STATUS 04/19/2017 DANIEL GARLAND DO Ot V58.61 ANTICOAGULANTS,LT,CURRENT USE 04/19/2017 DANIEL GARLAND DO Ot V58.83 ENCOUNTER FOR THERAPEUTIC DRUG MONITORIN 04/19/2017 VAMSHISALENA JACOBOH Mavis FIELD STAFF MANAGER Ot 719.06 JOINT EFFUSION-L/LEG 04/19/2017 KAROLINA BONDS FIELD STAFF MANAGER Ot 719.46 JOINT PAIN-L/LEG 04/19/2017 VAMSHI, KAROLINA Gamble FIELD STAFF MANAGER Ot V43.65 KNEE JOINT REPLACEMENT STATUS 04/19/2017 DANIEL GARLAND DO Ot M25.561 PAIN IN RIGHT KNEE 04/19/2017 DANIEL GARLAND DO Ot M25.562 PAIN IN LEFT KNEE 04/19/2017 DANIEL GARLAND DO Ot Z96.653 PRESENCE OF ARTIFICIAL KNEE JOINT, BILAT 04/19/2017 VAMSHI KAROLINA Mavis FIELD STAFF MANAGER Ot M25.561 PAIN IN RIGHT KNEE 04/19/2017 VAMSHI, KAROLINA Mavis FIELD STAFF MANAGER Ot M25.562 PAIN IN LEFT KNEE 04/19/2017 VAMSHI, KAROLINA Mavis FIELD STAFF MANAGER Ot M79.1 MYALGIA 04/19/2017 DADA BRANDT DANIEL Steven Ot M48.06 SPINAL STENOSIS, LUMBAR REGION 04/19/2017 DADA BRANDT DANIEL Steven Ot M51.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 DISC DEGENERATION, 04/19/2017 SONIA WILDER, OMEGA Meyer Ot 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 04/19/2017 OMEGA [...] NODULE 04/19/2017 ARABELLA BILLY MD, Ot Z79.4 CORRECTION (CURRENT) USE OF INSULIN 04/19/2017 ARABELLA BILLY MD, Ot Z79.899 OTHER PHYSICAL SECURITY SPECIALIST (CURRENT) DRUG THERAPY 04/19/2017 BEREKET MARTINEZ MD, [...] NODULE 04/20/2017 BARBARA FAUST MD, Ot Z79.4 CORRECTION (CURRENT) USE OF INSULIN 04/20/2017 BARBARA FAUST MD, Ot Z79.899 OTHER CORRECTION (CURRENT) DRUG THERAPY 04/20/2017 BARBARA FAUST MD, [...] NODULE 05/16/2017 ARABELLA BILLY MD, Ot Z79.4 CORRECTION (CURRENT) USE OF INSULIN 05/16/2017 ARABELLA BILLY MD, Ot Z79.899 OTHER PHYSICAL SECURITY SPECIALIST (CURRENT) DRUG THERAPY 05/16/2017 VALERIE BARRIOS MD Ot 719.66 JOINT SYMPTOM NEC-L/LEG 05/16/2017 VALERIE BARRIOS MD Ot 715.36 LOC OSTEOARTH NOS-L/LEG 05/16/2017 VALERIE BARRIOS MD Ot 717.2 DERANG POST MED MENISCUS 05/16/2017 VALERIE BARRIOS MD Ot 719.06 JOINT EFFUSION-L/LEG 05/16/2017 DANIEL GARLAND DO Ot 715.36 LOC OSTEOARTH NOS-L/LEG 05/16/2017 DAINEL GARLAND DO Ot V72.63 PRE-PROCEDURAL LABORATORY EXAMINATION 05/16/2017 DANIEL GARLAND DO Ot V72.81 YDVP-PII-LNHHVGCTH CARDIOVASCULAR 05/16/2017 DANIEL GARLAND DO Ot V72.83 EXAM PRE-OPERATIVE NEC 05/16/2017 DANIEL GARLAND DO Ot V72.84 EXAM PRE-OPERATIVE NOS 05/16/2017 DANIEL GARLAND DO Ot V74.8 SCREEN-BACTERIAL DIS NEC 05/16/2017 DANIEL GARLAND DO Ot V43.65 KNEE JOINT REPLACEMENT STATUS 05/16/2017 DANIEL GARLAND DO Ot V58.61 ANTICOAGULANTS,LT,CURRENT USE 05/16/2017 DADA BRANDT DANIEL Steven Ot V58.83 ENCOUNTER FOR THERAPEUTIC DRUG MONITORIN 05/16/2017 KAROLINA BONDS FIELD STAFF MANAGER Ot 719.06 JOINT EFFUSION-L/LEG 05/16/2017 KAROLINA BONDS FIELD STAFF MANAGER Ot 719.46 JOINT PAIN-L/LEG 05/16/2017 KAROLINA BONDS FIELD STAFF MANAGER Ot V43.65 KNEE JOINT REPLACEMENT STATUS 05/16/2017 DADA BRANDT DANIEL Steven Ot M25.561 PAIN IN RIGHT KNEE 05/16/2017 DADA BRANDT DANIEL Steven Ot M25.562 PAIN IN LEFT KNEE 05/16/2017 DADA BRANDT DANIEL Steven Ot Z96.653 PRESENCE OF ARTIFICIAL KNEE JOINT, BILAT 05/16/2017 KAROLINA BONDS FIELD STAFF MANAGER Ot M25.561 PAIN IN RIGHT KNEE 05/16/2017 KAROLINA BONDS FIELD STAFF MANAGER Ot M25.562 PAIN IN LEFT KNEE 05/16/2017 KAROLINA BONDS FIELD STAFF MANAGER Ot M79.1 MYALGIA 05/16/2017 DADA BRANDT DANIEL Steven Ot M48.06 SPINAL STENOSIS, LUMBAR REGION 05/16/2017 DADA BRANDT DANIEL Steven Ot M51.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 DISC DEGENERATION, 05/16/2017 SONIA WILDER, OMEGA Meyer Ot 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 05/16/2017 SONIA [...] NODULE 05/16/2017 ARABELLA BILLY MD, Ot Z79.4 CORRECTION (CURRENT) USE OF INSULIN 05/16/2017 ARABELLA BILLY MD, Ot Z79.899 OTHER CORRECTION (CURRENT) DRUG THERAPY 05/16/2017 BEREKET MARTINEZ MD, [...] NODULE 06/05/2017 ARABELLA BILLY MD, Ot Z79.4 PHYSICAL SECURITY SPECIALIST (CURRENT) USE OF INSULIN 06/05/2017 ARABELLA BILLY MD Ot Z79.899 OTHER CORRECTION (CURRENT) DRUG THERAPY 06/19/2017 ARABELLA BILLY MD, Ot 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 NEOPLASM OF LEFT KIDNEY, EXCEP 06/19/2017 ARABELLA BILLY MD Ot E11.9 TYPE 2 DIABETES MELLITUS WITHOUT COMPLIC 06/19/2017 ARABELLA BILLY MD, Ot F17.210 NICOTINE DEPENDENCE, CIGARETTES, UNCOMPL 06/19/2017 ARABELLA BILLY MD Ot I10 ESSENTIAL (PRIMARY) HYPERTENSION 06/19/2017 ARABELLA BILLY MD Ot R91.1 SOLITARY PULMONARY NODULE 06/19/2017 ARABELLA BILLY MD, Ot Z79.4 CORRECTION (CURRENT) USE OF INSULIN 06/19/2017 ARABELLA BILLY MD, Ot Z79.899 OTHER PHYSICAL SECURITY SPECIALIST (CURRENT) DRUG THERAPY 06/25/2017 VALERIE BARRIOS MD Ot 719.66 JOINT SYMPTOM NEC-L/LEG 06/25/2017 VALERIE BARRIOS MD Ot 715.36 LOC OSTEOARTH NOS-L/LEG 06/25/2017 VALERIE BARRIOS MD Ot 717.2 DERANG POST MED MENISCUS 06/25/2017 VALERIE BARRIOS MD Ot 719.06 JOINT EFFUSION-L/LEG 06/25/2017 DANIEL GARLAND DO Ot 715.36 LOC OSTEOARTH NOS-L/LEG 06/25/2017 DANIEL GARLAND DO Ot V72.63 PRE-PROCEDURAL LABORATORY EXAMINATION 06/25/2017 DANIEL GARLAND DO Ot V72.81 HLEA-RXZ-RYPVHFIBJ CARDIOVASCULAR 06/25/2017 DANIEL GARLAND DO Ot V72.83 EXAM PRE-OPERATIVE NEC 06/25/2017 DANIEL GARLAND DO Ot V72.84 EXAM PRE-OPERATIVE NOS 06/25/2017 DANIEL GARLAND DO Ot V74.8 SCREEN-BACTERIAL DIS NEC 06/25/2017 DANIEL GARLAND DO Ot V43.65 KNEE JOINT REPLACEMENT STATUS 06/25/2017 DANIEL GARLAND DO Ot V58.61 ANTICOAGULANTS,LT,CURRENT USE 06/25/2017 DANIEL GARLAND DO Ot V58.83 ENCOUNTER FOR THERAPEUTIC DRUG MONITORIN 06/25/2017 KAROLINA BONDS FIELD STAFF MANAGER Ot 719.06 JOINT EFFUSION-L/LEG 06/25/2017 KAROLINA BONDS FIELD STAFF MANAGER Ot 719.46 JOINT PAIN-L/LEG 06/25/2017 KAROLINA BONDS FIELD STAFF MANAGER Ot V43.65 KNEE JOINT REPLACEMENT STATUS 06/25/2017 DANIEL GARLAND DO Ot M25.561 PAIN IN RIGHT KNEE 06/25/2017 DANIEL GARLAND DO Ot M25.562 PAIN IN LEFT KNEE 06/25/2017 DANIEL GARLAND DO Ot Z96.653 PRESENCE OF ARTIFICIAL KNEE JOINT, BILAT 06/25/2017 KAROLINA BONDS FIELD STAFF MANAGER Ot M25.561 PAIN IN RIGHT KNEE 06/25/2017 KAROLINA BONDS FIELD STAFF MANAGER Ot M25.562 PAIN IN LEFT KNEE 06/25/2017 KAROLINA BONDS FIELD STAFF MANAGER Ot M79.1 MYALGIA 06/25/2017 DANIEL GARLAND DO Ot M48.06 SPINAL STENOSIS, LUMBAR REGION 06/25/2017 DANIEL GARLAND DO Ot M51.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 DISC DEGENERATION, 06/25/2017 SONIA WILDER, OMEGA Meyer Ot 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 06/25/2017 OMEGA [...] NODULE 06/25/2017 ARABELLA BILLY MD, Ot Z79.4 CORRECTION (CURRENT) USE OF INSULIN 06/25/2017 ARABELLA BILLY MD, Ot Z79.899 OTHER PHYSICAL SECURITY SPECIALIST (CURRENT) DRUG THERAPY 06/25/2017 BEREKET MARTINEZ MD, [...] 06/25/2017 DAVID BRANDT KENDELL K Ot Z79.4 PHYSICAL SECURITY SPECIALIST (CURRENT) USE OF INSULIN 06/25/2017 DAVID BRANDT KENDELL K Ot Z85.3 PERSONAL HISTORY OF MALIGNANT NEOPLASM O 06/25/2017 DAVID DO, KENDELL K Ot Z85.528 PERSONAL HISTORY OF OTHER MALIGNANT NEOP 06/25/2017 DAVID DO, KENDELL K Ot Z87.01 PERSONAL HISTORY OF PNEUMONIA (RECURRENT 06/25/2017 [facility], KENDELL K Ot Z92.21 PERSONAL HISTORY OF ANTINEOPLASTIC CHEMO 06/25/2017 [place] DO, KENDELL K Ot Z95.0 PRESENCE OF CARDIAC PACEMAKER 06/25/2017 DAVID DO, KENDELL K Ot Z96.652 PRESENCE OF LEFT ARTIFICIAL KNEE JOINT 06/27/2017 DAVID DO, KENDELL K Ot E11.649 TYPE 2 DIABETES MELLITUS WITH HYPOGLYCEM 06/27/2017 [place] DO, KENDELL K Ot F17.210 NICOTINE DEPENDENCE, CIGARETTES, UNCOMPL 06/27/2017 [place] DO, KENDELL K Ot I10 ESSENTIAL (PRIMARY) HYPERTENSION 06/27/2017 [facility], KENDELL K Ot J42 UNSPECIFIED CHRONIC BRONCHITIS 06/27/2017 [facility] KENDELL K Ot M47.9 SPONDYLOSIS, UNSPECIFIED 06/27/2017 [facility] KENDELL K Ot R73.09 OTHER ABNORMAL GLUCOSE 06/27/2017 [facility], KENDELL K Ot Z79.4 PHYSICAL SECURITY SPECIALIST (CURRENT) USE OF INSULIN 06/27/2017 [facility] KENDELL K Ot Z85.3 PERSONAL HISTORY OF MALIGNANT NEOPLASM O 06/27/2017 [facility] KENDELL K Ot Z85.528 PERSONAL HISTORY OF OTHER MALIGNANT NEOP 06/27/2017 [facility], KENDELL K Ot Z87.01 PERSONAL HISTORY OF PNEUMONIA (RECURRENT 06/27/2017 [facility], KENDELL K Ot Z92.21 PERSONAL HISTORY OF ANTINEOPLASTIC CHEMO 06/27/2017 [facility], KENDELL K Ot Z95.0 PRESENCE OF CARDIAC PACEMAKER 06/27/2017 [place] DO, KENDELL K Ot Z96.652 PRESENCE OF [...] NODULE 07/07/2017 ARABELLA BILLY MD Ot Z79.4 CORRECTION (CURRENT) USE OF INSULIN 07/07/2017 ARABELLA BILLY MD Ot Z79.899 OTHER CORRECTION (CURRENT) DRUG THERAPY 07/08/2017 ARBAELLA BILLY MD Ot 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 NEOPLASM OF LEFT KIDNEY, EXCEP 07/08/2017 ARABELLA BILLY MD Ot E11.9 TYPE 2 DIABETES MELLITUS WITHOUT COMPLIC 07/08/2017 ARABELLA BILLY MD Ot F17.210 NICOTINE DEPENDENCE, CIGARETTES, UNCOMPL 07/08/2017 ARABELLA BILLY MD Ot I10 ESSENTIAL (PRIMARY) HYPERTENSION 07/08/2017 ARABELLA BILLY MD Ot R91.1 SOLITARY PULMONARY NODULE 07/08/2017 ARABELLA BILLY MD Ot Z79.4 PHYSICAL SECURITY SPECIALIST (CURRENT) USE OF INSULIN 07/08/2017 ARABELLA BILLY MD Ot Z79.899 OTHER CORRECTION (CURRENT) DRUG THERAPY 07/15/2017 ARABELLA BILLY MD Ot 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 NEOPLASM OF LEFT KIDNEY, EXCEP 07/15/2017 ARABELLA BILLY MD Ot E11.9 TYPE 2 DIABETES MELLITUS WITHOUT COMPLIC 07/15/2017 ARABELLA BILLY MD Ot F17.210 NICOTINE DEPENDENCE, CIGARETTES, UNCOMPL 07/15/2017 ARABELLA BLILY MD Ot I10 ESSENTIAL (PRIMARY) HYPERTENSION 07/15/2017 ARABELLA BILLY MD Ot R91.1 SOLITARY PULMONARY NODULE 07/15/2017 ARABELLA BILLY MD Ot Z79.4 CORRECTION (CURRENT) USE OF INSULIN 07/15/2017 ARABELLA BILLY MD Ot Z79.899 OTHER CORRECTION (CURRENT) DRUG THERAPY 08/16/2017 ARABELLA BILLY MD Ot 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 NEOPLASM OF LEFT KIDNEY, EXCEP 08/16/2017 ARABELLA BILLY MD Ot E11.9 TYPE 2 DIABETES MELLITUS WITHOUT COMPLIC 08/16/2017 ARABELLA BILLY MD Ot F17.210 NICOTINE DEPENDENCE, CIGARETTES, UNCOMPL 08/16/2017 ARABELLA BILLY MD Ot I10 ESSENTIAL (PRIMARY) HYPERTENSION 08/16/2017 ARABELLA BILLY MD Ot R91.1 SOLITARY PULMONARY NODULE 08/16/2017 MARIAJOSE WILDER, ARABELLA Ot Z79.4 CORRECTION (CURRENT) USE OF INSULIN 08/16/2017 MARIAJOSE WILDER, ARABELLA Ot Z79.899 OTHER PHYSICAL SECURITY SPECIALIST (CURRENT) DRUG THERAPY 09/11/2017 REVEAL VALERIE WILDER [...] 09/11/2017 DADA BRANDT DANIEL Maurizio Ot V72.81 KCGJ-XES-IQJAGKFIZ CARDIOVASCULAR 09/11/2017 DANIEL GARLAND DO Ot V72.83 [...] FOR THERAPEUTIC DRUG MONITORIN 09/11/2017 KAROLINA BONDS FIELD STAFF MANAGER Ot 719.06 JOINT EFFUSION-L/LEG 09/11/2017 KAROLINA BONDS FIELD STAFF MANAGER Ot 719.46 JOINT PAIN-L/LEG 09/11/2017 KAROLINA BONDS FIELD STAFF MANAGER Ot V43.65 KNEE JOINT REPLACEMENT STATUS 09/11/2017 DANIEL GARLAND DO Ot M25.561 PAIN IN RIGHT KNEE 09/11/2017 DANIEL GARLAND DO Ot M25.562 PAIN IN LEFT KNEE 09/11/2017 DANIEL GARLAND DO Ot Z96.653 PRESENCE OF ARTIFICIAL KNEE JOINT, BILAT 09/11/2017 KAROLINA BONDS FIELD STAFF MANAGER Ot M25.561 PAIN IN RIGHT KNEE 09/11/2017 KAROLINA BONDS APRN Ot M25.562 PAIN IN LEFT KNEE 09/11/2017 KAROLINA BONDS APRN Ot M79.1 MYALGIA 09/11/2017 DADA DO, DANIEL F Ot M48.06 SPINAL STENOSIS, LUMBAR REGION 09/11/2017 DADA DO, DANIEL F Ot M51.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 DISC DEGENERATION, 09/11/2017 OMEGA SCOTT MD Ot 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 09/11/2017 OMEGA [...] Ot 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 09/11/2017 BEREKET MARTINEZ MD Ot R91.8 OTHER [...] NODULE 09/11/2017 ARABELLA BILLY MD Ot Z79.4 PHYSICAL SECURITY SPECIALIST (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) USE OF INSULIN 09/11/2017 ARABELLA BILLY MD Ot Z79.899 OTHER CORRECTION (CURRENT) DRUG THERAPY 09/12/2017 VALERIE BARRIOS MD Ot 719.66 JOINT SYMPTOM NEC-L/LEG 09/12/2017 VALERIE BARRIOS MD Ot 715.36 LOC OSTEOARTH NOS-L/LEG 09/12/2017 VALERIE BARRIOS MD Ot 717.2 DERANG POST MED MENISCUS 09/12/2017 VALERIE BARRIOS MD Ot 719.06 JOINT EFFUSION-L/LEG 09/12/2017 DANIEL GARLAND DO Ot 715.36 LOC OSTEOARTH NOS-L/LEG 09/12/2017 DANIEL GARLAND DO Ot V72.63 PRE-PROCEDURAL LABORATORY EXAMINATION 09/12/2017 DANIEL GARLAND DO Ot V72.81 EFOI-ZKB-[id number] CARDIOVASCULAR 09/12/2017 DANIEL GARLAND DO Ot V72.83 EXAM PRE-OPERATIVE NEC 09/12/2017 DANIEL GARLAND DO Ot V72.84 EXAM PRE-OPERATIVE NOS 09/12/2017 DANIEL GARLAND DO Ot V74.8 SCREEN-BACTERIAL DIS NEC 09/12/2017 DANIEL GARLAND DO Ot V43.65 KNEE JOINT REPLACEMENT STATUS 09/12/2017 DANIEL GARLAND DO Ot V58.61 ANTICOAGULANTS,LT,CURRENT USE 09/12/2017 DANIEL GARLAND DO Ot V58.83 ENCOUNTER FOR THERAPEUTIC DRUG MONITORIN 09/12/2017 KAROLINA BONDS FIELD STAFF MANAGER Ot 719.06 JOINT EFFUSION-L/LEG 09/12/2017 KAROLINA BONDS FIELD STAFF MANAGER Ot 719.46 JOINT PAIN-L/LEG 09/12/2017 KAROLINA BONDS FIELD STAFF MANAGER Ot V43.65 KNEE JOINT REPLACEMENT STATUS 09/12/2017 DANIEL GARLAND DO Ot M25.561 PAIN IN RIGHT KNEE 09/12/2017 DANIEL GARLAND DO Ot M25.562 PAIN IN LEFT KNEE 09/12/2017 DADA DO, DANIEL Maurizio Ot Z96.653 PRESENCE OF ARTIFICIAL KNEE JOINT, BILAT 09/12/2017 VAMSHIKAROLINA FIELD STAFF MANAGER Ot M25.561 PAIN IN RIGHT KNEE 09/12/2017 VAMSHI KAROLINA E FIELD STAFF MANAGER Ot M25.562 PAIN IN LEFT KNEE 09/12/2017 VAMSHIKAROLINA FIELD STAFF MANAGER Ot M79.1 MYALGIA 09/12/2017 DADA DO, DANIEL Steven Ot M48.06 SPINAL STENOSIS, LUMBAR REGION 09/12/2017 DADA DO, DANIEL F Ot M51.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 DISC DEGENERATION, 09/12/2017 OMEGA SCOTT MD Ot 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 09/12/2017 OMEGA [...] NODULE 09/12/2017 ARABELLA BILLY MD Ot Z79.4 CORRECTION (CURRENT) USE OF INSULIN 09/12/2017 ARABELLA BILLY MD Ot Z79.899 OTHER CORRECTION (CURRENT) DRUG THERAPY 09/12/2017 SOPHIE WILDER, VALERIE [...] EXAMINATION 09/12/2017 DANIEL GARLAND DO Ot V72.81 [id number]-UST-[id number] CARDIOVASCULAR 09/12/2017 DANIEL GARLAND DO Ot V72.83 [...] FOR THERAPEUTIC DRUG MONITORIN 09/12/2017 KAROLINA BONDS FIELD STAFF MANAGER Ot 719.06 JOINT EFFUSION-L/LEG 09/12/2017 KAROLINA BONDS FIELD STAFF MANAGER Ot 719.46 JOINT PAIN-L/LEG 09/12/2017 KAROLINA BONDS FIELD STAFF MANAGER Ot V43.65 KNEE JOINT REPLACEMENT STATUS 09/12/2017 DADA , DANIEL Steven Ot M25.561 PAIN IN RIGHT KNEE 09/12/2017 DADA , DANIEL Steven Ot M25.562 PAIN IN LEFT KNEE 09/12/2017 DADA , DANIEL Steven Ot Z96.653 PRESENCE OF ARTIFICIAL KNEE JOINT, BILAT 09/12/2017 VAMSHIKAROLINA E FIELD STAFF MANAGER Ot M25.561 PAIN IN RIGHT KNEE 09/12/2017 VAMSHI KAROLINA E FIELD STAFF MANAGER Ot M25.562 PAIN IN LEFT KNEE 09/12/2017 VAMSHI KAROLINA E FIELD STAFF MANAGER Ot M79.1 MYALGIA 09/12/2017 DADA , DANIEL Steven Ot M48.06 SPINAL STENOSIS, LUMBAR REGION 09/12/2017 DADA BRANDT, DANIEL Steven Ot M51.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 DISC DEGENERATION, 09/12/2017 SONIA WILDER, OMEGA Meyer Ot 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 09/12/2017 OMEGA [...] NODULE 09/12/2017 ARABELLA BILLY MD, Ot Z79.4 CORRECTION (CURRENT) USE OF INSULIN 09/12/2017 ARABELLA BILLY MD, Ot Z79.899 OTHER PHYSICAL SECURITY SPECIALIST (CURRENT) DRUG THERAPY 09/13/2017 ARABELLA BILLY MD, [...] EXAMINATION 09/19/2017 DANIEL GARLAND DO Ot V72.81 [id number]-KTM-HDYIIONZA CARDIOVASCULAR 09/19/2017 DANIEL GARLAND DO Ot V72.83 EXAM PRE-OPERATIVE NEC 09/19/2017 DANIEL GARLAND DO Ot V72.84 EXAM PRE-OPERATIVE NOS 09/19/2017 DANIEL GARLAND DO Ot V74.8 SCREEN-BACTERIAL DIS NEC 09/19/2017 DANIEL GARLAND DO Ot V43.65 KNEE JOINT REPLACEMENT STATUS 09/19/2017 DANIEL GARLAND DO Ot V58.61 ANTICOAGULANTS,LT,CURRENT USE 09/19/2017 DANIEL GARLAND DO Ot V58.83 ENCOUNTER FOR THERAPEUTIC DRUG MONITORIN 09/19/2017 KAROLINA BONDS FIELD STAFF MANAGER Ot 719.06 JOINT EFFUSION-L/LEG 09/19/2017 VAMSHI KAROLINA E FIELD STAFF MANAGER Ot 719.46 JOINT PAIN-L/LEG 09/19/2017 KAROLINA BONDS FIELD STAFF MANAGER Ot V43.65 KNEE JOINT REPLACEMENT STATUS 09/19/2017 DANIEL GARLAND DO Ot M25.561 PAIN IN RIGHT KNEE 09/19/2017 DANIEL GARLAND DO Ot M25.562 PAIN IN LEFT KNEE 09/19/2017 DANIEL GARLAND DO Ot Z96.653 PRESENCE OF ARTIFICIAL KNEE JOINT, BILAT 09/19/2017 KAROLINA BONDS FIELD STAFF MANAGER Ot M25.561 PAIN IN RIGHT KNEE 09/19/2017 KAROLINA BONDS FIELD STAFF MANAGER Ot M25.562 PAIN IN LEFT KNEE 09/19/2017 VAMSHI KAROLINA E FIELD STAFF MANAGER Ot M79.1 MYALGIA 09/19/2017 DANIEL GARLAND DO Ot M48.06 SPINAL STENOSIS, LUMBAR REGION 09/19/2017 DANIEL GARLAND DO Ot M51.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 DISC DEGENERATION, 09/19/2017 OMEGA SCOTT MD Ot 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 09/19/2017 OMEGA [...] NODULE 09/19/2017 ARABELLA BILLY MD, Ot Z79.4 PHYSICAL SECURITY SPECIALIST (CURRENT) USE OF INSULIN 09/19/2017 ARABELLA BILLY MD, Ot Z79.899 OTHER PHYSICAL SECURITY SPECIALIST (CURRENT) DRUG THERAPY 09/19/2017 ARABELLA BILLY MD, [...] NODULE 09/20/2017 ARABELLA BILLY MD Ot Z79.4 PHYSICAL SECURITY SPECIALIST (CURRENT) USE OF INSULIN 09/20/2017 ARABELLA BILLY MD Ot Z79.899 OTHER CORRECTION (CURRENT) DRUG THERAPY 09/23/2017 ARABELLA BILLY MD Ot 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 NEOPLASM OF LEFT KIDNEY, EXCEP 09/23/2017 ARABELLA BILLY MD Ot E11.9 TYPE 2 DIABETES MELLITUS WITHOUT COMPLIC 09/23/2017 ARABELLA BILLY MD Ot F17.210 NICOTINE DEPENDENCE, CIGARETTES, UNCOMPL 09/23/2017 ARABELLA BILLY MD Ot I10 ESSENTIAL (PRIMARY) HYPERTENSION 09/23/2017 ARABELLA BILLY MD Ot R91.1 SOLITARY PULMONARY NODULE 09/23/2017 ARABELLA BILLY MD, Ot Z79.4 CORRECTION (CURRENT) USE OF INSULIN 09/23/2017 ARABELLA BILLY MD, Ot Z79.899 OTHER CORRECTION (CURRENT) DRUG THERAPY 09/25/2017 ARABELLA BILLY MD, Ot 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 NEOPLASM OF LEFT KIDNEY, EXCEP 09/25/2017 ARABELLA BILLY MD, Ot E11.9 TYPE 2 DIABETES MELLITUS WITHOUT COMPLIC 09/25/2017 ARABELLA BILLY MD Ot F17.210 NICOTINE DEPENDENCE, CIGARETTES, UNCOMPL 09/25/2017 ARABELLA BILLY MD Ot I10 ESSENTIAL (PRIMARY) HYPERTENSION 09/25/2017 ARABELLA BILLY MD Ot R91.1 SOLITARY PULMONARY NODULE 09/25/2017 ARABELLA BILLY MD, Ot Z79.4 PHYSICAL SECURITY SPECIALIST (CURRENT) USE OF INSULIN 09/25/2017 ARABELLA BILLY MD Ot Z79.899 OTHER PHYSICAL SECURITY SPECIALIST (CURRENT) DRUG THERAPY 10/10/2017 ARABELLA BILLY MD Ot 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 NEOPLASM OF LEFT KIDNEY, EXCEP 10/10/2017 ARABELLA BILLY MD Ot E11.9 TYPE 2 DIABETES MELLITUS WITHOUT COMPLIC 10/10/2017 ARABELLA BILLY MD Ot F17.210 NICOTINE DEPENDENCE, CIGARETTES, UNCOMPL 10/10/2017 ARABELLA BILLY MD Ot I10 ESSENTIAL (PRIMARY) HYPERTENSION 10/10/2017 ARABELLA BILLY MD Ot R91.1 SOLITARY PULMONARY NODULE 10/10/2017 ARABELLA BILLY MD, Ot Z79.4 CORRECTION (CURRENT) USE OF INSULIN 10/10/2017 ARABELLA BILLY MD Ot Z79.899 OTHER CORRECTION (CURRENT) DRUG THERAPY 10/11/2017 ARABELLA BILLY MD, Ot 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 NEOPLASM OF LEFT KIDNEY, EXCEP 10/11/2017 ARABELLA BILLY MD Ot E11.9 TYPE 2 DIABETES MELLITUS WITHOUT COMPLIC 10/11/2017 ARABELLA BILLY MD Ot F17.210 NICOTINE DEPENDENCE, CIGARETTES, UNCOMPL 10/11/2017 ARABELLA BILLY MD Ot I10 ESSENTIAL (PRIMARY) HYPERTENSION 10/11/2017 ARABELLA BILLY MD Ot R91.1 SOLITARY PULMONARY NODULE 10/11/2017 ARABELLA BILLY MD, Ot Z79.4 CORRECTION (CURRENT) USE OF INSULIN 10/11/2017 ARABELLA BILLY MD Ot Z79.899 OTHER PHYSICAL SECURITY SPECIALIST (CURRENT) DRUG THERAPY 10/24/2017 AARBELLA BILLY MD, Ot 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 NEOPLASM OF LEFT KIDNEY, EXCEP 10/24/2017 ARABELAL BILLY MD Ot E11.9 TYPE 2 DIABETES MELLITUS WITHOUT COMPLIC 10/24/2017 ARABELLA BILLY MD Ot F17.210 NICOTINE DEPENDENCE, CIGARETTES, UNCOMPL 10/24/2017 ARABELLA BILLY MD Ot I10 ESSENTIAL (PRIMARY) HYPERTENSION 10/24/2017 ARABELLA BILLY MD Ot R91.1 SOLITARY PULMONARY NODULE 10/24/2017 ARABELLA BILLY MD Ot Z79.4 CORRECTION (CURRENT) USE OF INSULIN 10/24/2017 ARABELLA BILLY MD Ot Z79.899 OTHER PHYSICAL SECURITY SPECIALIST (CURRENT) DRUG THERAPY 10/25/2017 ARABELLA BILLY MD Ot 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 NEOPLASM OF LEFT KIDNEY, EXCEP 10/25/2017 ARABELLA BILLY MD Ot E11.9 TYPE 2 DIABETES MELLITUS WITHOUT COMPLIC 10/25/2017 ARABELLA BILLY MD Ot F17.210 NICOTINE DEPENDENCE, CIGARETTES, UNCOMPL 10/25/2017 ARABELLA BILLY MD Ot I10 ESSENTIAL (PRIMARY) HYPERTENSION 10/25/2017 ARABELLA BILLY MD Ot R91.1 SOLITARY PULMONARY NODULE 10/25/2017 ARABELLA BILLY MD Ot Z79.4 CORRECTION (CURRENT) USE OF INSULIN 10/25/2017 ARABELLA BILLY MD Ot Z79.899 OTHER CORRECTION (CURRENT) DRUG THERAPY 11/14/2017 ARABELLA BILLY MD, [...] CHEMOTHERAP 11/14/2017 ARABELLA BILLY MD, Ot Z79.4 CORRECTION (CURRENT) USE OF INSULIN 11/14/2017 ARABELLA BILLY MD, Ot Z79.899 OTHER PHYSICAL SECURITY SPECIALIST (CURRENT) DRUG THERAPY 11/20/2017 ARABELLA BILLY MD, [...] CHEMOTHERAP 01/22/2018 ARABELLA BILLY MD, Ot Z79.4 PHYSICAL SECURITY SPECIALIST (CURRENT) USE OF INSULIN 01/22/2018 ARABELLA BILLY MD, Ot Z79.899 OTHER PHYSICAL SECURITY SPECIALIST (CURRENT) DRUG THERAPY 01/23/2018 ARABELLA BILLY MD, [...] CHEMOTHERAP 01/23/2018 ARABELLA BILLY MD Ot Z79.4 CORRECTION (CURRENT) USE OF INSULIN 01/23/2018 ARABELLA BILLY MD Ot Z79.899 OTHER CORRECTION (CURRENT) DRUG THERAPY 01/30/2018 ARABELLA BILLY MD, [...] CHEMOTHERAP 01/30/2018 ARABELLA BILLY MD Ot Z79.4 CORRECTION (CURRENT) USE OF INSULIN 01/30/2018 ARABELLA BILLY MD Ot Z79.899 OTHER PHYSICAL SECURITY SPECIALIST (CURRENT) DRUG THERAPY 02/25/2018 ARABELLA BILLY MD, [...] CHEMOTHERAP 02/25/2018 ARABELLA BILLY MD Ot Z79.4 CORRECTION (CURRENT) USE OF INSULIN 02/25/2018 ARABELLA BILLY MD Ot Z79.899 OTHER CORRECTION (CURRENT) DRUG THERAPY 03/05/2018 ARABELLA BILLY MD, [...] CHEMOTHERAP 03/05/2018 ARABELLA BILLY MD Ot Z79.4 PHYSICAL SECURITY SPECIALIST (CURRENT) USE OF INSULIN 03/05/2018 ARABELLA BILLY MD Ot Z79.899 OTHER PHYSICAL SECURITY SPECIALIST (CURRENT) DRUG THERAPY 03/27/2018 ARABELLA BILLY MD, [...] CHEMOTHERAP 03/27/2018 ARABELLA BILLY MD Ot Z79.4 PHYSICAL SECURITY SPECIALIST (CURRENT) USE OF INSULIN 03/27/2018 ARABELLA BILLY MD Ot Z79.899 OTHER PHYSICAL SECURITY SPECIALIST (CURRENT) DRUG THERAPY 04/23/2018 ARABELLA BILLY MD, Ot C64.9 MALIGNANT NEOPLASM OF UNSP KIDNEY, EXCEP 04/23/2018 ARABELLA BILLY MD, Ot 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 04/23/2018 DAMARIS VALADEZ MD, Ot C64.9 MALIGNANT NEOPLASM OF UNSP KIDNEY, EXCEP 04/23/2018 DAMARIS VALADEZ MD, Ot 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 Procedures Code Description Performed By Performed On 81.54 TOTAL KNEE REPLACEMENT 10/20/2013 [id number] REPLACE OF R KNEE JT WITH SYNTH [...] plasma rheumatoid factor measurement (units/volume) NEGATIVE NEGATIVE [id number] - 09/12/16 17:38 Screening antinuclear antibody (FLASH) [...] NEGATIVE FOR ANTIGEN AND TOXIN A/B NRG Complete blood count (CBC) with automated white blood cell (WBC) differential - 05/07/18 16:48 Blood leukocytes automated count (number/volume) 19.9 10*3/uL 4.3-11.0 Blood erythrocytes automated count (number/volume) 3.83 10*6/uL 4.35-5.85 Venous blood hemoglobin measurement (mass/volume) 11.4 g/dL 13.3-17.7 Blood hematocrit (volume fraction) 37 % 40-54 Automated erythrocyte mean corpuscular volume 96 [foz_us] 80-99 Automated erythrocyte mean corpuscular hemoglobin (mass per erythrocyte) 30 pg 25-34 Automated erythrocyte mean corpuscular hemoglobin concentration measurement ( mass/volume) 31 g/dL 32-36 Automated erythrocyte distribution width ratio 13.9 % 10.0-14.5 Automated blood platelet count (count/volume) 256 10*3/uL 130-400 Automated blood platelet mean volume measurement 9.7 [foz_us] 7.4-10.4 Automated blood neutrophils/100 leukocytes 84 % 42-75 Automated blood lymphocytes/100 leukocytes 9 % 12-44 Blood monocytes/100 leukocytes 6 % 0-12 Automated blood eosinophils/100 leukocytes 1 % 0-10 Automated blood basophils/100 leukocytes 0 % 0-10 Blood neutrophils automated count (number/volume) 16.6 10*3 1.8-7.8 Blood lymphocytes automated count (number/volume) 1.9 10*3 1.0-4.0 Blood monocytes automated count (number/volume) 1.2 10*3 0.0-1.0 Automated eosinophil count 0.2 10*3/uL 0.0-0.3 Automated blood basophil count (count/volume) 0.0 10*3/uL 0.0-0.1 Blood lactic acid measurement (moles/volume) - 05/07/18 16:48 Blood lactic acid measurement (moles/volume) 0.75 mmol/L 0.50-2.00 Comprehensive metabolic panel - 05/07/18 16:48 Serum or plasma sodium measurement (moles/volume) 136 mmol/L 135-145 Serum or plasma potassium measurement (moles/volume) 5.2 mmol/L 3.6-5.0 Serum or plasma chloride measurement (moles/volume) 99 mmol/L 98-107 Carbon dioxide 26 mmol/L 21-32 Serum or plasma anion gap determination (moles/volume) 11 mmol/L 5-14 Serum or plasma urea nitrogen measurement (mass/volume) 64 mg/dL 7-18 Serum or plasma creatinine measurement (mass/volume) 2.76 mg/dL 0.60-1.30 Serum or plasma urea nitrogen/creatinine mass ratio 23 NRG Serum or plasma creatinine measurement with calculation of estimated glomerular filtration rate 23 NRG Serum or plasma glucose measurement (mass/volume) 207 mg/dL 70-105 Serum or plasma calcium measurement (mass/volume) 10.1 mg/dL 8.5-10.1 Serum or plasma total bilirubin measurement (mass/volume) 0.3 mg/dL 0.1-1.0 Serum or plasma alkaline phosphatase measurement (enzymatic activity/volume) 121 U/L 40-136 Serum or plasma aspartate aminotransferase measurement (enzymatic activity/ volume) 33 U/L 5-34 Serum or plasma alanine aminotransferase measurement (enzymatic activity/volume ) 39 U/L 0-55 Serum or plasma protein measurement (mass/volume) 7.0 g/dL 6.4-8.2 Serum or plasma albumin measurement (mass/volume) 3.6 g/dL 3.2-4.5 CALCIUM CORRECTED 10.4 mg/dL 8.5-10.1 Blood manual differential performed detection - 05/07/18 16:48 Blood monocytes/100 leukocytes 4 % NRG Manual blood segmented neutrophils/100 leukocytes 69 % NRG Blood band neutrophils/100 leukocytes 12 % NRG Manual blood lymphocytes/100 leukocytes 15 % NRG Manual eosinophils/100 leukocytes in nose 0 % NRG Manual blood basophils/100 leukocytes 0 % NRG Blood erythrocyte morphology finding identification NORMAL NRG Encounters ACCT No. Visit Date/Time Discharge Status Pt. Type Provider Facility Loc./Unit Complaint [id number] 04/23/2018 15:30:00 04/23/2018 23:59:59 CLS Outpatient DAMARIS VALADEZ MD [facility] ONC [id number] 03/28/2018 09:56:00 04/23/2018 13:11:00 DIS Outpatient ARABELLA BILLY MD [facility] ONC [id number] 02/26/2018 15:09:00 03/27/2018 09:33:00 DIS Outpatient ARABELLA BILLY MD [facility] ONC [id number] 03/21/2018 10:46:00 03/21/2018 23:59:59 CLS Outpatient ARABELLA BILLY MD [facility] RAD RENAL CELL CARCINOMA [id number] 12/05/2017 14:29:00 12/05/2017 23:59:59 CLS Outpatient ARABELLA BILLY MD [facility] ONC [id number] 10/10/2017 15:10:00 10/10/2017 00:01:00 DIS Outpatient ARABELLA BILLY MD [facility] ONC [id number] 09/12/2017 14:44:00 09/12/2017 23:59:59 CLS Outpatient ARABELLA BILLY MD [facility] RAD C64.9 CARCINOMA [id number] 07/04/2017 11:37:00 07/07/2017 00:01:00 DIS Outpatient ARABELLA BILLY MD [facility] ONC [id number] 06/25/2017 06:53:00 06/25/2017 09:35:00 DIS Emergency DAVID KENDELL BRANDT [facility] ER LOW BLOOD SUGAR [id number] 04/19/2017 14:45:00 04/20/2017 12:15:00 DIS Inpatient BARBARA FAUST MD [facility] 4TH LUNG NODULE [id number] 04/10/2017 12:25:00 04/10/2017 23:59:59 CLS Outpatient ARABELLA BILLY MD [facility] RAD CARCINOMA RENAL CELL [id number] 03/07/2017 15:52:00 03/07/2017 23:59:59 CLS Outpatient BEREKET MARTINEZ MD [facility] RAD RENAL CA [id number] 11/09/2016 07:56:00 02/07/2017 00:01:00 DIS Outpatient ARABELLA BILLY MD [facility] ONC [id number] 12/19/2016 15:21:00 12/19/2016 23:59:59 CLS Outpatient VIOLET DOE MD [facility] RAD RENAL MASS [id number] 11/02/2016 11:12:00 11/04/2016 13:45:00 DIS Inpatient FARHAN COYLE DO [facility] 4TH SEPSIS,PHARYNGITIS,UTI, RENAL MASS [id number] 10/15/2016 15:43:00 10/15/2016 23:59:59 CLS Outpatient OMEGA SCOTT MD [facility] RAD 54.2 M54.14 NECK PAIN, CLAUDICATION [id number] 09/20/2016 15:26:00 09/20/2016 23:59:59 CLS Outpatient DANIEL GARLAND DO [facility] RAD SCOLIOSIS [id number] 09/12/2016 17:18:00 09/12/2016 23:59:59 CLS Outpatient KAROLINA BONDS APRN [facility] LAB BILAT JOINT PAIN [id number] 09/06/2016 11:33:00 09/06/2016 23:59:59 CLS Outpatient DADA BRANDTDANIEL [facility] CARD MONO KNEE PAIN [id number] 11/28/2015 10:30:00 12/01/2015 09:48:00 DIS Outpatient DADA BRANDT DANIEL Steven [facility] REHAB S/P L TOTAL KNEE [id number] 09/20/2015 09:50:00 09/23/2015 11:22:00 DIS Inpatient DADA BRANDT DANIEL Steven [facility] 4TH RIGHT KNEE [id number] 09/09/2015 08:52:00 09/09/2015 13:43:00 DIS Outpatient DANIEL GARLAND DO [facility] PREOP RIGHT KNEE [id number] 06/18/2014 16:30:00 06/21/2014 11:49:00 DIS Outpatient DADA BRANDT DANIEL Steven [facility] REHAB ARTHROFIBROSIS L KNEE S/P SERA S/P L TKA [id number] 12/21/2013 14:57:00 02/08/2014 00:01:00 DIS Outpatient DADA BRANDT DANIEL Maurizio [facility] REHAB S/P L TKR [id number] 12/16/2013 11:37:00 12/16/2013 23:59:59 CLS Outpatient KAROLINA BONDS APRN [facility] LABNPT (L)KNEE PAIN S/P (L) TKA [id number] 10/29/2013 14:30:00 10/29/2013 23:59:59 CLS Outpatient DADA BRANDT DANIEL Maurizio [facility] HH TKR, ANTICOAG THERAPY [id number] 10/20/2013 10:42:00 10/24/2013 13:30:00 DIS Inpatient DANIEL GARLAND DO [facility] SURGICAL LEFT KNEE DEGENERATIVE JOINT DISEASE [id number] 10/13/2013 09:51:00 10/13/2013 23:59:59 CLS Outpatient DADADANIEL LINDSAY DO [facility] PREOP LEFT KNEE DEGENERATIVE JOINT DISEASE [id number] 06/08/2013 18:34:00 06/12/2013 13:15:00 DIS Inpatient BOONE ABAD MD [facility] 4TH INFLUENZA A, HYPOXIA [id number] 01/16/2013 15:49:00 01/16/2013 23:59:59 CLS Outpatient VALERIE BARRIOS MD [facility] RAD LOCKING RT KNEE [id number] 01/13/2013 15:51:00 01/13/2013 23:59:59 CLS Outpatient VALERIE BARRIOS MD [facility] RAD LOCKING RT KNEE [id number] 11/17/2012 15:58:00 11/17/2012 23:59:59 CLS Outpatient [id number] 05/07/2018 17:12:00 Document Registration [id number] 06/18/2014 16:32:57 ACT Document Registration
[2018-05-07] MEDS ORDERED: PIPERACILLIN SODIUM/TAZOBACTAM 4.5 GM in NS (IVPB) 100 ML IV ONE (18:45)
[2018-05-07] MEDS ORDERED: NS IV 1000 ML 1,000 ML ONE (19:00)
[2018-05-07] MEDS ORDERED: NS IV 1000 ML 1,000 ML IV SCH ×3 (19:15→19:30)
[2018-05-07] MEDS ORDERED: CATHETER FLUSH 10 ML SYR IV PRN (20:15)
[2018-05-07] MEDS ORDERED: ONDANSETRON 4 MG/2 ML (SDV) Z0FRAN IV PRN (20:15)
[2018-05-07] MEDS ORDERED: CALCIUM CARBONATE 500 MG (TUMS) TAB.CHEW PO PRN (20:30)
[2018-05-07] MEDS ORDERED: ACETAMINOPHEN 500 MG TAB (TYLENOL) PO PRN (20:30)
[2018-05-07] MEDS ORDERED: DOCUSATE SODIUM 100 MG (COLACE) CAP PO PRN (20:30)
[2018-05-07] MEDS ORDERED: HYDROcodone/APAP 5 MG/325 MG (LORTAB) TAB PO PRN (20:30)
[2018-05-07] MEDS ORDERED: LOPERAMIDE 2 MG (IMODIUM) CAP PO PRN (20:30)
[2018-05-07] MEDS ORDERED: ALPRAZolam 0.25 MG (XANAX) TAB PO PRN (20:30)
[2018-05-07] MEDS ORDERED: diphenhydrAMINE 25 MG TAB (BENADRYL) PO PRN (20:30)
[2018-05-07] MEDS ORDERED: guaiFENesin/CODEINE (ROBITUSSIN AC) 10ML UDC PO PRN (20:30)
[2018-05-07] MEDS: NS IV 1000 ML 1,000 ML IV SCH (20:43)
[2018-05-07] MEDS ORDERED: NS IV 1000 ML 1,000 ML IV ONE (21:30)
[2018-05-07 21:39] LABS: ABG BASE EXCESS 0.5 MMOL/L (-2.5-2.5); ABG OXYGEN SATURATION 92 % (94-100); ABG PO2 75 MMHG (79-93); ABG TCO2 32.7 MMOL/L (21.0-31.0)
[2018-05-07 21:43] LABS: ABG PCO2 95 MMHG (35-45); ABG PH 7.11 (7.37-7.43)
[2018-05-07 21:44] LABS: ALLENS TEST POSITIVE; INSPIRED O2 6L; PATIENT TEMP 96.3; VENTILATOR NO
[2018-05-07 23:13] LABS: ABG BASE EXCESS -0.6 MMOL/L (-2.5-2.5); ABG OXYGEN SATURATION 97 % (94-100); ABG PO2 97 MMHG (79-93); ABG TCO2 30.9 MMOL/L (21.0-31.0); ALLENS TEST YES-POS; INSPIRED O2 50% BIPAP; PATIENT TEMP 98.6; VENTILATOR NO
[2018-05-07 23:15] LABS: ABG PCO2 91 MMHG (35-45); ABG PH 7.12 (7.37-7.43)
[2018-05-07] MEDS ORDERED: PROPOFOL DRIP (ICU) 100 ML IV ONE (23:52)
[2018-05-08] VITALS (28 sets, daily range): BP systolic 72–146; BP diastolic 5–84
[2018-05-08] MEDS ORDERED: ACETAMINOPHEN 325 MG SUPP (TYLENOL) PR PRN (00:15)
[2018-05-08] MEDS: PANTOPRAZOLE 40 MG (PROTONIX) VIAL IV SCH ×2 (00:51→12:19)
[2018-05-08 01:28] LABS: ABG BASE EXCESS 0.8 MMOL/L (-2.5-2.5); ABG OXYGEN SATURATION 100 % (94-100); ABG PCO2 58 MMHG (35-45); ABG PO2 278 MMHG (79-93); ABG TCO2 28.7 MMOL/L (21.0-31.0); ALLENS TEST YES-POS; INSPIRED O2 80%
[2018-05-08 01:29] LABS: PATIENT TEMP 97.7; VENTILATOR YES
[2018-05-08 01:30] LABS: ABG PH 7.28 (7.37-7.43)
[2018-05-08 01:52] LABS: BASOPHILS % (AUTO) 0 % (0-10); EOSINOPHILS % (AUTO) 0 % (0-10); HEMATOCRIT 24 % (40-54); HEMOGLOBIN 7.7 G/DL (13.3-17.7); LYMPHOCYTES # (AUTO) 0.8 X 10^3 (1.0-4.0); LYMPHOCYTES % (AUTO) 7 % (12-44); MEAN CORPUSCULAR HEMOGLOBIN 32 PG (25-34); MEAN CORPUSCULAR HGB CONC 32 G/DL (32-36); MEAN CORPUSCULAR VOLUME 100 FL (80-99); MEAN PLATELET VOLUME 9.9 FL (7.4-10.4); MONOCYTES # (AUTO) 0.7 X 10^3 (0.0-1.0); MONOCYTES % (AUTO) 6 % (0-12); NEUTROPHILS # (AUTO) 10.6 X 10^3 (1.8-7.8); NEUTROPHILS % (AUTO) 87 % (42-75); PLATELET COUNT 170 10^3/uL (130-400); RED BLOOD COUNT 2.42 10^6/uL (4.35-5.85); RED CELL DISTRIBUTION WIDTH 14.3 % (10.0-14.5); WHITE BLOOD COUNT 12.2 10^3/uL (4.3-11.0)
[2018-05-08 02:09] LABS: BUN/CREATININE RATIO 28; CARBON DIOXIDE 17 MMOL/L (21-32); CHLORIDE 114 MMOL/L (98-107); CREATININE SERUM 1.51 MG/DL (0.60-1.30); GFR ESTIMATED 47; GLUCOSE 139 MG/DL (70-105); MAGNESIUM 1.6 MG/DL (1.8-2.4); PHOSPHORUS 3.4 MG/DL (2.3-4.7); POTASSIUM 4.3 MMOL/L (3.6-5.0); SODIUM 139 MMOL/L (135-145)
[2018-05-08 02:13] LABS: CALCIUM 5.7 MG/DL (8.5-10.1)
--- NOTE | 2018-05-08 02:52 | Procedure/Intervention Note ---
Procedures/Interventions Reason for Intubation: respiratory distress and impending respiratory failure with hypercarbia Date of ETT Placement: May 07, 2018 Time of ETT Placement: 23:40 Intubation Method: orotracheal Tube Size: 8.0 Medications: Etomidate (20 mg), Fentanyl (50 g), Succinylcholine (100 mg), Versed (5 mg) Positive End Tide CO2: Yes Breath Sounds after Intubation: bilateral-equal Intubation Complications: no complications Post Intubation Xray: Yes ET tube in good position Called emergently to ICU 9 to provide intubation for patient with significant respiratory distress and compromise. Patient has history of lung cancer and pneumonia. Had respiratory decline and had trial of BiPAP, which failed. Patient has markedly elevated PCO2 level on ABG with acidosis. Intubated via video scope times one attempt after sedation and paralysis with etomidate and succinylcholine. Postintubation sedation with Versed and fentanyl pending propofol drip initiation. Postintubation chest x-ray shows ET tube in good position. OG tube passed after also in good position. Tolerated procedure well with no complications. MORGAN MARIE MD May 08, 2018 02:52
[2018-05-08] MEDS: PIPERACILLIN/TAZO 4.5 GM/NS 100 ML IV SCH ×6 (03:00→16:29)
[2018-05-08 03:54] LABS: ABG BASE EXCESS 1.6 MMOL/L (-2.5-2.5); ABG OXYGEN SATURATION 99 % (94-100); ABG PCO2 42 MMHG (35-45); ABG PH 7.41 (7.37-7.43); ABG PO2 102 MMHG (79-93); ABG TCO2 27.1 MMOL/L (21.0-31.0)
[2018-05-08 03:56] LABS: ALLENS TEST YES-POS; INSPIRED O2 40%; PATIENT TEMP 99.1; VENTILATOR YES
[2018-05-08] MEDS: POTASSIUM CL 10MEQ/50ML IVPB 50 ML IV SCH (04:28)
[2018-05-08] MEDS: KCL 20 MEQ TAB (K-DUR) PO SCH (04:29)
[2018-05-08] MEDS: MAGNESIUM 1 GM/100 ML IVPB 100 ML IV SCH ×3 (04:29→08:51)
[2018-05-08] MEDS ORDERED: RT-ALBUTEROL/IPRATROPIUM 3 ML (DUONEB) VIAL INH PRN (04:45)
[2018-05-08 05:40] LABS: BASOPHILS % (AUTO) 0 % (0-10); EOSINOPHILS # (AUTO) 0.1 10^3/uL (0.0-0.3); EOSINOPHILS % (AUTO) 1 % (0-10); HEMATOCRIT 32 % (40-54); HEMOGLOBIN 9.9 G/DL (13.3-17.7); LYMPHOCYTES # (AUTO) 1.3 X 10^3 (1.0-4.0); LYMPHOCYTES % (AUTO) 8 % (12-44); MEAN CORPUSCULAR HEMOGLOBIN 30 PG (25-34); MEAN CORPUSCULAR HGB CONC 31 G/DL (32-36); MEAN CORPUSCULAR VOLUME 96 FL (80-99); MEAN PLATELET VOLUME 9.7 FL (7.4-10.4); MONOCYTES % (AUTO) 6 % (0-12); NEUTROPHILS # (AUTO) 12.9 X 10^3 (1.8-7.8); NEUTROPHILS % (AUTO) 85 % (42-75); PLATELET COUNT 224 10^3/uL (130-400); RED BLOOD COUNT 3.32 10^6/uL (4.35-5.85); RED CELL DISTRIBUTION WIDTH 14.3 % (10.0-14.5); WHITE BLOOD COUNT 15.3 10^3/uL (4.3-11.0)
--- NOTE | 2018-05-08 05:44 | Pulmonary Consultation ---
History of Present Illness History of Present Illness Date of Consultation 05/08/18 05:39 Time Seen by Provider: 05:39 Date of Admission History of Present Illness 62 yo with lung cancer currently undergoing chemo last was 04/23 was admitted to 4th floor secondary to SOB, hypoxia, and hypotension. He have worsening lethargy, confusion, and respiratory distress. PT was transferred to ICU and was placed on BiPAP however continued to worsen and was intubated per Dr. Vila. He has been hypotensive through the night and has had a total of 4 liters through the night. Allergies and Home Medications Allergies Coded Allergies: meperidine (Verified Allergy, Unknown, RASH, Pt has received Fentanyl w/o issue, 04/19/17) Home Medications Ascorbic Acid 500 Mg Tablet, 500 MG PO DAILY, (Reported) Calcium Carbonate/Vitamin D3 1 Each Tablet, 1 TAB PO BID, (Reported) Cholecalciferol (Vitamin D3) 2,000 Unit Capsule, 2,000 UNIT PO DAILY, (Reported) Colestipol HCl 1 Gm Tablet, 2 GM PO BID, (Reported) TAKES 2 (1GM) TABLET Ferrous Sulfate 325 Mg Tablet, 325 MG PO BID, (Reported) Gabapentin 300 Mg Capsule, 300 MG PO TID, (Reported) Glimepiride 4 Mg Tablet, 4 MG PO BID, (Reported) Insulin Detemir 100 Unit/1 Ml Insuln.pen, 20 UNITS SC HS, (Reported) Krill/Om-3/Dha/Epa/Phospho/Ast 1 Each Capsule, 1 CAP PO DAILY, (Reported) Lisinopril 20 Mg Tablet, 20 MG PO DAILY, (Reported) Lutein 20 Mg Tablet, 40 MG PO BID, (Reported) Magnesium Oxide 400 Mg Tablet, 400 MG PO DAILY, (Reported) Metformin HCl 500 Mg Tablet, 500 MG PO BID, (Reported) Potassium Gluconate 99 Mg Tablet, 99 MG PO DAILY, (Reported) Flako AC/Safflower Oil 52 Ml Oil, TP BID, (Reported) APPLY TO SCARS Past Kpsqobx-Mlfzho-Acjxec Hx Past Med/Social Hx: Reviewed Nursing Past Med/Soc Hx Patient Social History Alcohol Use: Denies Use Recreational Drug Use: No Smoking Status: Current Everyday Smoker Type Used: Cigarettes Recent Foreign Travel: No Contact w/Someone Who Travel: No Recent Infectious Disease Expo: No Recent Hopitalizations: No Physical Abuse: No Sexual Abuse: No Immunizations Up To Date Tetanus Booster (TDap): More than 5yrs Date of Pneumonia Vaccine: Sep 08, 2014 Date of Influenza Vaccine: Mar 03, 2018 Seasonal Allergies Seasonal Allergies: No Past Medical History Surgeries: Yes Abdominal, Ear Surgery, Eye Surgery, Gallbladder, Joint Replacement, Nephrectomy , Orthopedic Respiratory: Yes (LUNG BIOPSY/PNEUMOTHORAX; LUNG CANCER) Pneumonia, Chronic Bronchitis Currently Using CPAP: No Currently Using BIPAP: No Cardiac: Yes Hypertension Neurological: No Reproductive Disorders: No HIV/AIDS: No Genitourinary: Yes (RENAL CANCER--LEFT NEPHRECTOMY) Gastrointestinal: Yes Chronic Diarrhea, Polyps Musculoskeletal: Yes (FX LEG, COLLAR BONE, RIBS, FOOT; OSTEOARTHRITIS KNEES) Degenerate Disk Disease, Arthritis, Chronic Back Pain Endocrine: Yes Diabetes, Insulin dep HEENT: Yes Cataract Loss of Vision: Bilateral Hearing Impairment: Hard of Hearing Cancer: Yes Lung, Kidney Did You Recieve Any Treatments: Yes What Type of Treatment Did You: Chemotherapy, Surgical Intervention Psychosocial: No Integumentary: No Blood Disorders: No Adverse Reaction/Blood Tranf: No Family Medical History Reviewed Nursing Family Hx Diabetes mellitus 19 FATHER 19 MOTHER G8 BROTHER FH: skin cancer 19 MOTHER Family history: Arthritis Family history: Coronary thrombosis Family history: Diabetes mellitus History of - respiratory disease No Family History of: Abdominal aortic aneurysm Ulysses's disease Alcoholism Aphasia Cancer Cancer of colon Cataract Chest pain Congenital heart disease Congestive heart failure Cystic fibrosis Dementia Dysphagia Family history: Allergy Family history: Alzheimer's disease Family history: Asthma Family history: Breast disease Family history: Cardiovascular disease Family history: Gastrointestinal disease Family history: Glaucoma Family history: Hypertension Family history: Osteoporosis Family history: Thyroid disorder Headache Hearing loss Heart disease Hereditary disease History of - anemia History of - disorder History of drug abuse Human immunodeficiency virus (HIV) seropositivity Hypercholesterolemia Infertile Kidney disease Malignant neoplasm of lung Myocardial infarction Parkinson's disease Prostate cancer Psychotic disorder Seizure disorder Stroke Tuberculosis Visual impairment No Pertinent Family Hx Review of Systems Time Seen by Provider: 07:36 Sepsis Event Evaluation Height, Weight, BMI Height: 6'4.00" Weight: 211lbs. 8.0oz. 95.201071yc; 25.7 BMI Method:Stated Exam Exam Vital Signs Date Time Temp Pulse Resp B/P (MAP) Pulse Ox O2 Delivery O2 Flow Rate FiO2 05/08/18 05:00 64 24 92/57 (69) 100 Mechanical Ventilator 40.00 05/08/18 04:00 96 Mechanical Ventilator 40 05/08/18 04:00 64 24 96/59 (71) 100 Mechanical Ventilator 40.00 05/08/18 03:00 63 23 95/54 (68) 100 Mechanical Ventilator 40.00 05/08/18 02:00 62 23 80/45 (57) 100 Mechanical Ventilator 40.00 05/08/18 01:47 Mechanical Ventilator 40.00 05/08/18 01:40 Mechanical Ventilator 70.00 05/08/18 01:00 60 05/08/18 01:00 60 05/08/18 01:00 56 17 72/43 (53) 100 Mechanical Ventilator 80.00 05/08/18 00:38 97.6 65 16 115/47 100 NIV Bilevel 50.00 05/08/18 00:01 Mechanical Ventilator 80.00 05/08/18 00:00 100 Mechanical Ventilator 80 05/08/18 00:00 65 16 115/47 (69) 100 NIV Bilevel 50.00 05/07/18 23:00 74 11 102/56 (71) 96 NIV Bilevel 50.00 05/07/18 23:00 98 NIV Bilevel 70 05/07/18 22:52 80 05/07/18 22:12 97.6 75 18 104/59 (74) 96 NIV Bilevel 50.00 05/07/18 21:29 100/54 (69) 05/07/18 21:18 93/52 (66) 05/07/18 20:54 87 18 103/53 (70) 95 Nasal Cannula 6.00 05/07/18 20:39 96.1 78 126/73 (90) Nasal Cannula 6.00 05/07/18 20:23 63 121/67 (85) 05/07/18 20:08 87 103/53 (70) 05/07/18 19:55 Nasal Cannula 6.00 05/07/18 19:53 96.0 88 20 107/64 (78) 89 Nasal Cannula 6.00 05/07/18 19:21 82 16 101/62 (75) 94 Nasal Cannula 6.00 05/07/18 16:58 90 Nasal Cannula 4.00 05/07/18 16:40 93 Nasal Cannula 6.00 05/07/18 16:40 97.4 107 24 107/61 (76) 91 Nasal Cannula 5.00 I & O 05/08/18 07:00 Intake Total 5100 ml Output Total 1050 ml Balance 4050 ml Height & Weight Height: 6'4.00" Weight: 211lbs. 8.0oz. 95.372236io; 25.7 BMI Method:Stated General Appearance: No Apparent Distress, WD/WN HEENT: PERRL/EOMI, Normal ENT Inspection, Pharynx Normal Neck: Full Range of Motion, Non Tender, Supple Respiratory: Chest Non Tender, Decreased Breath Sounds Cardiovascular: Regular Rate, Rhythm Capillary Refill: Less Than 3 Seconds Gastrointestinal: normal bowel sounds, non tender, soft, no organomegaly, no pulsatile mass Extremity: Normal Capillary Refill, Normal Inspection Neurologic/Psychiatric: Alert Skin: Normal Color Results Lab Laboratory Tests 05/07/18 16:48 05/08/18 01:40 Assessment/Plan Assessment/Plan Acute respiratory distress/failure -Continue vent Pneumonia with severe sepsis -Continue zosyn -Garcia cultures pending Hypotension -Will place central line -IVF Anemia -Monitor -Occult stool -GI ppx Lung cancer -Oncology is following -Last Chemo 04/23 Metabolic acidosis with renal failure -Monitor -IVF Hypercalcemia -IVF -monitor -Recheck ANETA HAWKINS DO May 08, 2018 05:44
[2018-05-08] MEDS ORDERED: PANTOPRAZOLE 40 MG (PROTONIX) VIAL IV ONE (05:45)
[2018-05-08 05:57] LABS: CALCIUM 8.3 MG/DL (8.5-10.1); CREATININE SERUM 2.25 MG/DL (0.60-1.30); POTASSIUM 6.1 MMOL/L (3.6-5.0)
[2018-05-08] MEDS ORDERED: SOD POLYSTERENE 15 GM/60 ML (KAYEXALATE) UNIT DOSE NG ONE (06:30)
--- NOTE | 2018-05-08 06:36 | Pulmonary Progress Note ---
Subjective Time Seen by a Provider: 07:37 Sepsis Event Evaluation Height, Weight, BMI Height: 6'4.00" Weight: 211lbs. 8.0oz. 95.833694ep; 25.7 BMI Method:Stated Focused Exam Lactate Level 05/07/18 16:48: Lactic Acid Level 0.75 05/07/18 23:15: Lactic Acid Level 0.46L 05/08/18 01:40: Lactic Acid Level 0.56 Exam Exam Vital Signs Date Time Temp Pulse Resp B/P (MAP) Pulse Ox O2 Delivery O2 Flow Rate FiO2 05/08/18 06:00 67 28 98/58 (71) 100 Mechanical Ventilator 40.00 05/08/18 05:00 64 24 92/57 (69) 100 Mechanical Ventilator 40.00 05/08/18 04:00 96 Mechanical Ventilator 40 05/08/18 04:00 64 24 96/59 (71) 100 Mechanical Ventilator 40.00 05/08/18 03:00 63 23 95/54 (68) 100 Mechanical Ventilator 40.00 05/08/18 02:00 62 23 80/45 (57) 100 Mechanical Ventilator 40.00 05/08/18 01:47 Mechanical Ventilator 40.00 05/08/18 01:40 Mechanical Ventilator 70.00 05/08/18 01:00 60 05/08/18 01:00 60 05/08/18 01:00 56 17 72/43 (53) 100 Mechanical Ventilator 80.00 05/08/18 00:38 97.6 65 16 115/47 100 NIV Bilevel 50.00 05/08/18 00:01 Mechanical Ventilator 80.00 05/08/18 00:00 100 Mechanical Ventilator 80 05/08/18 00:00 65 16 115/47 (69) 100 NIV Bilevel 50.00 05/07/18 23:00 74 11 102/56 (71) 96 NIV Bilevel 50.00 05/07/18 23:00 98 NIV Bilevel 70 05/07/18 22:52 80 05/07/18 22:12 97.6 75 18 104/59 (74) 96 NIV Bilevel 50.00 05/07/18 21:29 100/54 (69) 05/07/18 21:18 93/52 (66) 05/07/18 20:54 87 18 103/53 (70) 95 Nasal Cannula 6.00 05/07/18 20:39 96.1 78 126/73 (90) Nasal Cannula 6.00 05/07/18 20:23 63 121/67 (85) 05/07/18 20:08 87 103/53 (70) 05/07/18 19:55 Nasal Cannula 6.00 05/07/18 19:53 96.0 88 20 107/64 (78) 89 Nasal Cannula 6.00 05/07/18 19:21 82 16 101/62 (75) 94 Nasal Cannula 6.00 05/07/18 16:58 90 Nasal Cannula 4.00 05/07/18 16:40 93 Nasal Cannula 6.00 05/07/18 16:40 97.4 107 24 107/61 (76) 91 Nasal Cannula 5.00 I & O 05/08/18 07:00 Intake Total 5100 ml Output Total 1050 ml Balance 4050 ml Height & Weight Height: 6'4.00" Weight: 211lbs. 8.0oz. 95.191705ds; 25.7 BMI Method:Stated General Appearance: WD/WN, Anxious HEENT: PERRL/EOMI Neck: Full Range of Motion, Supple Respiratory: Chest Non Tender, No Accessory Muscle Use, No Respiratory Distress , Crackles, Decreased Breath Sounds Cardiovascular: Regular Rate, Rhythm Capillary Refill: Less Than 3 Seconds Gastrointestinal: normal bowel sounds, non tender, soft, no organomegaly, no pulsatile mass Neurologic/Psychiatric: Alert Skin: Normal Color, Warm/Dry Results Lab Laboratory Tests 05/07/18 16:48 05/08/18 01:40 05/08/18 05:25 Assessment/Plan Assessment/Plan Acute respiratory distress/failure -Continue vent Pneumonia with severe sepsis -Continue zosyn -Garcia cultures pending Hypotension -Will place central line -IVF -Give antoher liter Hyperkalemia -Kayexalate and recheck at 11 Anemia -Monitor -Occult stool -GI ppx Lung cancer -Oncology is following -Last Chemo 04/23 Metabolic acidosis with renal failure -Monitor -IVF Hypercalcemia -IVF -monitor -Recheck ANETA HAWKINS DO May 08, 2018 06:36
[2018-05-08] MEDS ORDERED: NS IV 1000 ML 1,000 ML IV ONE (06:45)
[2018-05-08] MEDS: RT-ALBUTEROL/IPRATROPIUM 3 ML (DUONEB) VIAL INH SCH ×5 (06:51→22:13)
[2018-05-08] MEDS: NS IV 1000 ML 1,000 ML IV SCH ×5 (06:59→19:53)
[2018-05-08] MEDS ORDERED: ACETAMINOPHEN 650 MG SUPP (TYLENOL) PR PRN (07:30)
--- NOTE | 2018-05-08 07:33 | Diagnostic Imaging Report ---
INDICATION: Intubation, tube placement. TECHNIQUE: Single view chest 1207 AM. CORRELATION STUDY: 05/07/2018 FINDINGS: Endotracheal tube has been placed, tip projects over the trachea below the clavicles and above the kusum. Gastric tube passes below the left hemidiaphragm. Heart size and mediastinum remain enlarged and prominent. Vasculature appear slightly increased from prior study. Scattered areas of atelectasis and/or infiltrate throughout both lung mccray appearing to be superimposed on chronic changes of the lung parenchyma. The findings do appear to be increased particularly at the right mid and lower lung field. Bilateral pleural effusions. IMPRESSION: 1. Interval intubation and placement of gastric tube. 2. There appears to be increasing areas of infiltrate, right greater than left. Dictated by: Dictated on workstation # [id number]
--- NOTE | 2018-05-08 07:59 | History & Physical-Hospitalist ---
History of Present Illness HPI/Chief Complaint Pt is a 62yoCM with a PMH of metastatic renal cell carcinoma, IDDMII, HTN who presented to the ER from [facility] who presented to the ER for hypoxia. He is currently intubated and sedated and unable to provide any history. Reportedly he was found to have sats in the 60s in the [facility] and sent to the ER. He was started on oxygen and responded to 4-5lpm via NC and was able to maintain his sats. He was found ot have bilateral pneumonia and was admitted to the floor. He continued to decompensate with confusion and was found to be hypercarbic. He was transferred to the unit and trialed on BiPAP but was unable to tolerate it and eventually could not no longer protect his airway. ER physician responded for emergent intubation. This morning his ABG has improved but he is now hypotensive and receiving fluid bolus. Source: patient Exam Limitations: clinical condition Date Seen 05/08/18 Time Seen by a Provider: 07:56 Attending Physician Silver Nation MD PCP Silver Nation MD Referring Physician Date of Admission May 07, 2018 at 18:06 Home Medications & Allergies Home Medications Reviewed patient Home Medication Reconciliation performed by pharmacy medication reconciliations entry level installation technician and/or nursing. Patients Allergies have been reviewed. Allergies Allergies Coded Allergies meperidine (Verified Allergy, Unknown, RASH, Pt has received Fentanyl w/o issue, 04/19/17) Past Gzrckql-Trezwr-Qvaajg Hx Past Med/Social Hx: Reviewed Nursing Past Med/Soc Hx Patient Social History Alcohol Use: Denies Use Recreational Drug Use: No Smoking Status: Current Everyday Smoker Type Used: Cigarettes Physical Abuse Screen: No Sexual Abuse: No Recent Foreign Travel: No Contact w/other who traveled: No Recent Hopitalizations: No Recent Infectious Disease Expo: No Immunizations Up To Date Tetanus Booster (TDap): More than 5yrs Date of Pneumonia Vaccine: Sep 08, 2014 Date of Influenza Vaccine: Mar 03, 2018 Seasonal Allergies Seasonal Allergies: No Past Medical History Surgeries: Abdominal, Ear Surgery, Eye Surgery, Gallbladder, Joint Replacement , Nephrectomy, Orthopedic Respiratory: Chronic Bronchitis Currently Using CPAP: No Currently Using BIPAP: No Cardiac: Hypertension Reproductive: No HIV/AIDS: No Gastrointestinal: Chronic Diarrhea, Polyps Musculoskeletal: Degenerate Disk Disease, Arthritis, Chronic Back Pain Endocrine: Diabetes, Insulin dep HEENT: Cataract Loss of Vision: Bilateral Hearing Impairment: Hard of Hearing Cancer: Lung, Kidney Did You Recieve Any Treatments: Yes What Type of Treatment Did You: Chemotherapy, Surgical Intervention History of Blood Disorders: No Adverse Reaction to Blood Olmedo: No Family History Reviewed Nursing Family Hx Diabetes mellitus 19 FATHER 19 MOTHER G8 BROTHER FH: skin cancer 19 MOTHER Family history: Arthritis Family history: Coronary thrombosis Family history: Diabetes mellitus History of - respiratory disease No Family History of: Abdominal aortic aneurysm [place]'s disease Alcoholism Aphasia Cancer Cancer of colon Cataract Chest pain Congenital heart disease Congestive heart failure Cystic fibrosis Dementia Dysphagia Family history: Allergy Family history: Alzheimer's disease Family history: Asthma Family history: Breast disease Family history: Cardiovascular disease Family history: Gastrointestinal disease Family history: Glaucoma Family history: Hypertension Family history: Osteoporosis Family history: Thyroid disorder Headache Hearing loss Heart disease Hereditary disease History of - anemia History of - disorder History of drug abuse Human immunodeficiency virus (HIV) seropositivity Hypercholesterolemia Infertile Kidney disease Malignant neoplasm of lung Myocardial infarction Parkinson's disease Prostate cancer Psychotic disorder Seizure disorder Stroke Tuberculosis Visual impairment No Pertinent Family Hx Review of Systems ROS-Unable to Obtain: Intubated and sedated Constitutional: see HPI Physical Exam Physical Exam Vital Signs Vital Signs - First Documented 05/07/18 23:00 FiO2 70 Capillary Refill : Less Than 3 Seconds Height, Weight, BMI Height: 6'4.00" Weight: 99lbs. 8.0oz. 45.112408wr; 25.7 BMI Method:Stated General Appearance: Other (intubated and sedated) HEENT: PERRL/EOMI, Moist Mucous Membranes Neck: Non Tender, Supple Respiratory: Respiratory Distress, Rhonci, Other (intubated) Cardiovascular: Regular Rate, Rhythm, No Murmur Gastrointestinal: Normal Bowel Sounds, Soft Rectal: Deferred Genital/Rectal: Other (roblero in place) Extremity: No Calf Tenderness, No Pedal Edema Neurologic/Psychiatric: Alert, Oriented x3, Normal Mood/Affect Skin: Normal Color, Warm/Dry Results Results/Procedures Labs Laboratory Tests 05/10/18 04:10 05/11/18 03:55 Patient resulted labs reviewed. Imaging: Reviewed Imaging Report Assessment/Plan Admission Diagnosis Acute Respiratory Failure Admission Status: Inpatient Order (span 2 midnights) Reason for Inpatient Admission: intubated Diagnosis/Problems Diagnosis/Problems (1) Septic shock Status: Acute Assessment & Plan: Continue on broad spectrum abx Cultures done in ER Continue fluid resuscitation May need pressors (2) Acute respiratory failure Status: Acute Assessment & Plan: On vent Pulm consulted, appreciate recs ABG improved likely due to pneumonia Qualifiers: Respiratory failure complication: hypoxia and hypercapnia Qualified Codes: J96.01 - Acute respiratory failure with hypoxia; J96.02 - Acute respiratory failure with hypercapnia (3) 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 Assessment & Plan: Follows with Dr Mcneil Consulted, appreciate recs Qualifiers: Laterality: unspecified laterality Qualified Codes: C78.00 - Secondary malignant neoplasm of unspecified lung; C64.9 - Malignant neoplasm of unspecified kidney, except renal pelvis (4) Acute renal failure Status: Acute Assessment & Plan: Acute on chronic kidney disease Hyperkalemia this AM Kayexalate ordered Monitor on telemetry Repeat Monitor UOP Qualifiers: Acute renal failure type: unspecified Qualified Codes: N17.9 - Acute kidney failure, unspecified (5) Hyperkalemia Status: Resolved Assessment & Plan: Kayexalate ordered Attempt to avoid lasix for hypotension Liley transient due to succ given during intubation Resolution Date/Time: 05/09/18 @ 09:04 Clinical Quality Measures DVT/VTE Risk/Contraindication: Risk Factor Score Per Nursin RFS Level Per Nursing on Admit: 4+=Very High Smoking Cessation Counseling: Counseling-Symptomatic: 3-10 Minutes Discussed Options Including: Nicotine Patch RYANNE DYSON MD May 08, 2018 07:59
[2018-05-08] MEDS ORDERED: MIDAZOLAM 5 MG/5 ML (VERSED) VIAL IJ ONE (08:06)
[2018-05-08] MEDS ORDERED: fentaNYL INJECTION 100 MCG/2 ML AMP INJ ONE (08:06)
[2018-05-08] MEDS ORDERED: SUCCINYLCHOLINE INJ 100 MG/5 ML SYR INJ ONE (08:06)
[2018-05-08] MEDS ORDERED: ETOMIDATE IV SOLN 20 MG/10 ML VIAL IV ONE (08:06)
[2018-05-08] MEDS: CHLORHEXIDINE 0.12% SOLN 15 ML (PERIDEX) UDC PO SCH ×2 (08:38→20:42)
[2018-05-08] MEDS ORDERED: INSU100I29 SC (09:49)
--- NOTE | 2018-05-08 10:04 | Anesthesia-Procedure Note ---
Procedures/Interventions Procedure Start/Stop/Diagnosis Date of Procedure: May 08, 2018 Start Time: 09:08 Stop Time: 09:21 Arterial Line Arterial Line Catheter: 20G Type: Radial Location: Left Procedure: prepped, draped in sterile fashion, 1% lidocaine used to numb region , good wave-form was obtained, patient tolerated procedure well, no immediate complications, post procedure area cleaned, post procedure dressing applied LYUDMILA MCGOVERN CRNA May 08, 2018 10:04
[2018-05-08 11:11] LABS: HEMOGLOBIN 10.6 G/DL (13.3-17.7)
--- NOTE | 2018-05-08 11:41 | Oncology Consultation ---
Visit Information Visit Information Date of Admission May 07, 2018 at 18:06 Attending Physician Silver Nation MD Admitting Physician Silver Nation MD Chief Complaint Respiratory failure, renal cell cancer with lung mets Interval History Mr. 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 He was on 2nd line therapy Opdivo immunotherapy and was doing well. Last CT scan 03/2018 showed disease improvement and reducing size of the tumor masses. He has his last dose of Opdivo 480mg on 04/23/18. He presented to urgent care with SOB and hypoxia, then transfused to ER. She was found to have bilateral pneumonia on CXR. He was treated with IV antibiotics and admitted to the floor and then intubated later at the night I consulted the patient on: 05/08/18 11:31 Time Seen by Provider: 11:41 Review of Systems Constitutional: see HPI, other (Pt is intubated and not able to give any) EENTM: see HPI Health Status Allergies Coded Allergies: meperidine (Verified Allergy, Unknown, RASH, Pt has received Fentanyl w/o issue, 04/19/17) Home Medications Ascorbic Acid (Vitamin C) 500 Mg Tablet, 500 MG PO DAILY, (Reported) Calcium Carbonate/Vitamin D3 (Calcium 500 + Vit D 200 Caplet) 1 Each Tablet, 1 TAB PO BID, (Reported) Cholecalciferol (Vitamin D3) (Vitamin D3) 2,000 Unit Capsule, 2,000 UNIT PO DAILY, (Reported) Colestipol HCl (Colestipol HCl) 1 Gm Tablet, 2 GM PO BID, (Reported) TAKES 2 (1GM) TABLET Ferrous Sulfate (Ferosul) 325 Mg Tablet, 325 MG PO BID, (Reported) Gabapentin (Gabapentin) 300 Mg Capsule, 300 MG PO TID, (Reported) Glimepiride (Glimepiride) 4 Mg Tablet, 4 MG PO BID, (Reported) Insulin Detemir (Levemir Flextouch) 100 Unit/1 Ml Insuln.pen, 20 UNITS SC HS, ( Reported) Krill/Om-3/Dha/Epa/Phospho/Ast (Krill Oil 1,000 mg Softgel) 1 Each Capsule, 1 CAP PO DAILY, (Reported) Lisinopril (Lisinopril) 20 Mg Tablet, 20 MG PO DAILY, (Reported) Lutein (Lutein) 20 Mg Tablet, 40 MG PO BID, (Reported) Magnesium Oxide (Magnesium) 400 Mg Tablet, 400 MG PO DAILY, (Reported) Metformin HCl (Metformin HCl) 500 Mg Tablet, 500 MG PO BID, (Reported) Potassium Gluconate (Potassium) 99 Mg Tablet, 99 MG PO DAILY, (Reported) Flako AC/Safflower Oil (Vitamin E Beauty Oil) 52 Ml Oil, TP BID, (Reported) APPLY TO SCARS ERU-Zyvpdv-Vouuvk Hx Patient Social History Alcohol Use: Denies Use Recreational Drug Use: No Smoking Status: Current Everyday Smoker Type Used: Cigarettes Recent Foreign Travel: No Contact w/other who traveled: No Recent Infectious Disease Expo: No Recent Hopitalizations: No Physical Abuse Screen: No Sexual Abuse: No Immunizations Up To Date Tetanus Booster (TDap): More than 5yrs Date of Pneumonia Vaccine: Sep 08, 2014 Date of Influenza Vaccine: Mar 03, 2018 Family Medical History Significant Family History: No Pertinent Family Hx Family History: Diabetes mellitus 19 FATHER 19 MOTHER G8 BROTHER FH: skin cancer 19 MOTHER Family history: Arthritis Family history: Coronary thrombosis Family history: Diabetes mellitus History of - respiratory disease No Family History of: Abdominal aortic aneurysm Karlos's disease Alcoholism Aphasia Cancer Cancer of colon Cataract Chest pain Congenital heart disease Congestive heart failure Cystic fibrosis Dementia Dysphagia Family history: Allergy Family history: Alzheimer's disease Family history: Asthma Family history: Breast disease Family history: Cardiovascular disease Family history: Gastrointestinal disease Family history: Glaucoma Family history: Hypertension Family history: Osteoporosis Family history: Thyroid disorder Headache Hearing loss Heart disease Hereditary disease History of - anemia History of - disorder History of drug abuse Human immunodeficiency virus (HIV) seropositivity Hypercholesterolemia Infertile Kidney disease Malignant neoplasm of lung Myocardial infarction Parkinson's disease Prostate cancer Psychotic disorder Seizure disorder Stroke Tuberculosis Visual impairment Physical Exam Vital Signs Vital Signs - First Documented 05/07/18 23:00 FiO2 70 Capillary Refill : Less Than 3 Seconds Height, Weight, BMI Height: 6'4.00" Weight: 99lbs. 8.0oz. 45.657202tk; 25.7 BMI Method:Stated General Appearance: Other (Intubated) HEENT: PERRL/EOMI Cardiovascular: Regular Rate, Rhythm Neurologic/Psychiatric: Other (sedated) Data Review Labs Laboratory Tests 05/07/18 16:48 05/08/18 01:40 05/08/18 05:25 05/08/18 11:02 05/08/18 11:13 Laboratory Tests 05/07/18 16:48: White Blood Count 19.9H, Red Blood Count 3.83L, Hemoglobin 11.4L, Hematocrit 37L , Mean Corpuscular Hemoglobin Concent 31L, Neutrophils (%) (Auto) 84H, Lymphocytes (%) (Auto) 9L, Neutrophils # (Auto) 16.6H, Monocytes # (Auto) 1.2H, Potassium Level 5.2H, Blood Urea Nitrogen 64H, Creatinine 2.76H, Glucose Level 207H, Corrected Calcium 10.4H 05/07/18 21:30: Arterial Blood pH 7.11*L, Arterial Blood Partial Pressure CO2 95*H, Arterial Blood Partial Pressure O2 75L, Arterial Blood HCO3 30H, Arterial Blood Total CO2 32.7H, Arterial Blood Oxygen Saturation 92L 05/07/18 23:05: Arterial Blood pH 7.12*L, Arterial Blood Partial Pressure CO2 91*H, Arterial Blood Partial Pressure O2 97H, Arterial Blood HCO3 28H 05/07/18 23:15: Lactic Acid Level 0.46L 05/08/18 01:15: 05/08/18 01:20: Arterial Blood pH 7.28*L, Arterial Blood Partial Pressure CO2 58H, Arterial Blood Partial Pressure O2 278H 05/08/18 01:40: White Blood Count 12.2H, Red Blood Count 2.42L, Hemoglobin 7.7#L, Hematocrit 24L , Mean Corpuscular Volume 100H, Neutrophils (%) (Auto) 87H, Lymphocytes (%) ( Auto) 7L, Neutrophils # (Auto) 10.6H, Lymphocytes # (Auto) 0.8L, Chloride Level 114#H, Carbon Dioxide Level 17L, Blood Urea Nitrogen 43H, Creatinine 1.51H, Glucose Level 139H, Calcium Level 5.7#*L, Magnesium Level 1.6L 05/08/18 03:45: Arterial Blood Partial Pressure O2 102H 05/08/18 05:25: White Blood Count 15.3H, Red Blood Count 3.32L, Hemoglobin 9.9#L, Hematocrit 32L , Mean Corpuscular Hemoglobin Concent 31L, Neutrophils (%) (Auto) 85H, Lymphocytes (%) (Auto) 8L, Neutrophils # (Auto) 12.9H, Potassium Level 6.1H, Blood Urea Nitrogen 59H, Creatinine 2.25H, Glucose Level 154H, Calcium Level 8.3L 05/08/18 10:01: Glucometer 136H 05/08/18 11:02: Hemoglobin 10.6L, Hematocrit 34L 05/08/18 11:13: Blood Urea Nitrogen 55H, Creatinine 2.11H, Glucose Level 127H, Calcium Level 8.3L, Chloride Level 108H, Magnesium Level 2.5H Impression & Plan Impression & Plan 1. Respiratory failure on vent. Pneumonia. ? Pneumonitis from Opdivo immunotherapy. Will treat with both antibiotics and add steroid until we can prove it is NOT from Opdivo pneumonitis otherwise. Solumderol 125mg q 6hr IV. 2. 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 Pathology approved lung metastasis 04/29/17. Started Opdivo treatment 09-28-2017. CT scan 03-20-18 showed improvement. Last cycle #11 was given 04/23/2018. 3. Hypotensive, sepsis. PICC line placement for IVF. 4. h/o severe pharyngitis, tonsillitis with lymphadenopathy no evidence of abscess on CT neck 10/2016. Resolved. 5. Type II diabetes on insulin 6. Acute and on chronic renal insufficiency, ARABELLA BILLY MD May 08, 2018 11:41
[2018-05-08 11:42] LABS: CALCIUM 8.3 MG/DL (8.5-10.1); CREATININE SERUM 2.11 MG/DL (0.60-1.30); MAGNESIUM 2.5 MG/DL (1.8-2.4); POTASSIUM 4.8 MMOL/L (3.6-5.0)
[2018-05-08] MEDS ORDERED: NS IV 1000 ML 1,000 ML IV SCH (12:00)
[2018-05-08] MEDS: methylPREDNISolone 125 MG (Solu-MEDROL) VIAL IVP SCH ×2 (12:18→17:18)
[2018-05-08] MEDS ORDERED: VANCOMYCIN 1 GM/NS 250 ML IVPB IV NR ×2 (13:13)
[2018-05-08] MEDS: DEXMEDETOMIDINE INJECTION 200 MCG in NS (IVPB) 50 ML IV PRN ×2 (13:52→23:29)
[2018-05-08] MEDS ORDERED: NOREPINEPHRINE 4 MG in NS (IVPB) 250 ML IV SCH (15:45)
[2018-05-08] MEDS ORDERED: inSUlin ASPART (NovoLOG) 1 UNIT/0.01 ML (CHARGE PER UNIT) SC SCH ×2 (16:00→18:00)
--- NOTE | 2018-05-08 16:54 | Diagnostic Imaging Report ---
INDICATION: Evaluate PICC line. COMPARISON: Earlier same day. FINDINGS: Single frontal radiographic view of the chest was obtained and demonstrates interval placement of right upper extremity PICC line. The tip is coiled within the high SVC near the junction of the innominate veins. Indwelling endotracheal tube is again seen with tip below the clavicular heads and above the kusum. Gastric tube extends inferiorly beyond the [id number]. Lungs show interval decreased inspiratory volumes with slight increase in patchy alveolar opacities in the left base. Otherwise, aeration is stable. There is no pneumothorax on either side. Cardiac silhouette and pulmonary vasculature is stable as well. IMPRESSION: 1. Lines and tubes as above. May want to withdraw the indwelling PICC line 6 cm and readvance. 2. Increased patchy alveolar opacities in left base, which are felt to represent atelectasis and related to interval decreased inspiratory volumes. Dictated by: Dictated on workstation # [id number]
[2018-05-08] MEDS: inSUlin ASPART (NovoLOG) 1 UNIT/0.01 ML (CHARGE PER UNIT) SC SCH (17:28)
--- NOTE | 2018-05-08 17:42 | Diagnostic Imaging Report ---
INDICATION: PICC line repositioning. Frontal chest obtained at 5:27 p.m. and compared with 4:22 p.m. the same day. FINDINGS: PICC line has been repositioned, tip is now overlying the mid to lower SVC. ET tube and NG tube are unchanged. There is cardiomegaly with unchanged bilateral infiltrates. IMPRESSION: Repositioning of right-sided PICC line, tip now overlies the mid to lower SVC. Otherwise, no change compared to earlier today. Dictated by: Dictated on workstation # [id number]
[2018-05-08] MEDS ORDERED: PIPERACILLIN/TAZO 4.5 GM/NS 100 ML IV SCH ×2 (18:00)
[2018-05-08] MEDS ORDERED: ATROPINE INJ 0.4 MG/ML SDV IV PRN (18:30)
[2018-05-08] MEDS ORDERED: inSUlin DETERMIR 1 UNIT/0.01 ML (LEVEMIR) CHARGE PER UNIT SQ SCH (21:00)
[2018-05-08] MEDS ORDERED: NON-FORMULARY MEDICATION 1 EA EA (Insulin Detemir (Levemir Flextouch) 20 UNITS) SC SCH (21:00)
[2018-05-08] MEDS: fentaNYL INJECTION 100 MCG/2 ML AMP IV PRN ×2 (22:13→22:52)
[2018-05-09] VITALS (27 sets, daily range): BP systolic 94–156; BP diastolic 39–99
[2018-05-09] MEDS: PIPERACILLIN/TAZO 4.5 GM/NS 100 ML IV SCH ×6 (00:15→16:43)
[2018-05-09] MEDS: methylPREDNISolone 125 MG (Solu-MEDROL) VIAL IVP SCH ×2 (00:16→05:25)
[2018-05-09] MEDS: inSUlin ASPART (NovoLOG) 1 UNIT/0.01 ML (CHARGE PER UNIT) SC SCH ×4 (00:16→17:17)
[2018-05-09] MEDS: PANTOPRAZOLE 40 MG (PROTONIX) VIAL IV SCH ×3 (00:16→23:22)
[2018-05-09] MEDS: NS IV 1000 ML 1,000 ML IV SCH ×4 (01:35→21:29)
[2018-05-09] MEDS: DEXMEDETOMIDINE INJECTION 200 MCG in NS (IVPB) 50 ML IV PRN (02:15)
[2018-05-09] MEDS: RT-ALBUTEROL/IPRATROPIUM 3 ML (DUONEB) VIAL INH SCH ×6 (02:43→22:25)
[2018-05-09 03:17] LABS: BASOPHILS % (AUTO) 0 % (0-10); EOSINOPHILS % (AUTO) 0 % (0-10); HEMATOCRIT 33 % (40-54); HEMOGLOBIN 10.6 G/DL (13.3-17.7); LYMPHOCYTES # (AUTO) 0.8 X 10^3 (1.0-4.0); LYMPHOCYTES % (AUTO) 4 % (12-44); MEAN CORPUSCULAR HEMOGLOBIN 30 PG (25-34); MEAN CORPUSCULAR HGB CONC 32 G/DL (32-36); MEAN CORPUSCULAR VOLUME 94 FL (80-99); MEAN PLATELET VOLUME 10.1 FL (7.4-10.4); MONOCYTES # (AUTO) 0.2 X 10^3 (0.0-1.0); MONOCYTES % (AUTO) 1 % (0-12); NEUTROPHILS # (AUTO) 16.5 X 10^3 (1.8-7.8); NEUTROPHILS % (AUTO) 95 % (42-75); PLATELET COUNT 230 10^3/uL (130-400); RED BLOOD COUNT 3.52 10^6/uL (4.35-5.85); RED CELL DISTRIBUTION WIDTH 14.2 % (10.0-14.5); WHITE BLOOD COUNT 17.5 10^3/uL (4.3-11.0)
[2018-05-09 03:29] LABS: ABG BASE EXCESS -7.7 MMOL/L (-2.5-2.5); ABG OXYGEN SATURATION 87 % (94-100); ABG PCO2 36 MMHG (35-45); ABG PO2 53 MMHG (79-93); ABG TCO2 18.8 MMOL/L (21.0-31.0)
[2018-05-09 03:34] LABS: ALLENS TEST ARTLINE; INSPIRED O2 25% FIO2; VENTILATOR YES
[2018-05-09 03:35] LABS: PATIENT TEMP 97.2
[2018-05-09 03:36] LABS: CALCIUM 7.7 MG/DL (8.5-10.1); CREATININE SERUM 1.99 MG/DL (0.60-1.30); PHOSPHORUS 3.7 MG/DL (2.3-4.7); POTASSIUM 4.7 MMOL/L (3.6-5.0)
[2018-05-09] MEDS: POTASSIUM CL 10MEQ/50ML IVPB 50 ML IV SCH (04:33)
[2018-05-09] MEDS: MAGNESIUM 1 GM/100 ML IVPB 100 ML IV SCH (04:33)
[2018-05-09] MEDS: KCL 20 MEQ TAB (K-DUR) PO SCH (04:34)
--- NOTE | 2018-05-09 05:29 | Pulmonary Progress Note ---
CHRIS CRUZ MED STUDENT 05/09/18 0529: Subjective Date Seen by a Provider: May 09, 2018 Time Seen by a Provider: 05:24 Subjective/Events-last exam Patient has had episodes of bradycardia with HR's as low as 35, Miguel Ángel consulted , atropine prn ordered but not given still on ventilator Sepsis Event Evaluation Height, Weight, BMI Height: 6'4.00" Weight: 99lbs. 8.0oz. 45.523980iw; 25.7 BMI Method:Stated Focused Exam Lactate Level 05/07/18 16:48: Lactic Acid Level 0.75 05/07/18 23:15: Lactic Acid Level 0.46L 05/08/18 01:40: Lactic Acid Level 0.56 Cardiovascular: Regular Rate, Rhythm, No Edema Skin: normal color, warm/dry Exam Exam Vital Signs Date Time Temp Pulse Resp B/P (MAP) Pulse Ox O2 Delivery O2 Flow Rate FiO2 05/09/18 05:00 47 23 123/48 (73) 97 Mechanical Ventilator 25.00 05/09/18 04:00 96 Mechanical Ventilator 25 05/09/18 04:00 59 24 99/53 (68) 96 Mechanical Ventilator 25.00 05/09/18 04:00 97.9 Mechanical Ventilator 25.00 05/09/18 03:00 55 24 107/59 (75) 95 Mechanical Ventilator 25.00 05/09/18 02:43 51 24 96 25 05/09/18 02:00 54 24 137/52 (80) 96 Mechanical Ventilator 25.00 05/09/18 01:35 141/54 05/09/18 01:00 69 05/09/18 01:00 59 24 146/54 (84) 95 Mechanical Ventilator 25.00 05/09/18 00:59 65 23 156/57 (90) 95 Mechanical Ventilator 25.00 05/09/18 00:00 94 Mechanical Ventilator 25 05/09/18 00:00 97.8 Mechanical Ventilator 25.00 05/08/18 23:00 74 24 124/50 (74) 95 Mechanical Ventilator 25.00 05/08/18 22:14 81 24 93 25 05/08/18 22:00 86 22 92 Mechanical Ventilator 25.00 05/08/18 21:00 70 24 83/61 (68) 96 Mechanical Ventilator 25.00 05/08/18 20:00 97.8 05/08/18 20:00 96 Mechanical Ventilator 25 05/08/18 20:00 67 24 98/58 (71) 96 Mechanical Ventilator 25.00 05/08/18 19:01 57 24 97 25 05/08/18 19:00 57 05/08/18 19:00 59 24 146/54 (84) 97 Mechanical Ventilator 25.00 05/08/18 18:00 49 24 91/39 (56) 100 Mechanical Ventilator 30.00 05/08/18 17:00 92 25 146/84 (104) 100 Mechanical Ventilator 30.00 05/08/18 16:51 56 24 99 30 05/08/18 16:31 98.4 05/08/18 16:08 95 Mechanical Ventilator 30 05/08/18 16:01 60 94/52 05/08/18 16:00 62 24 92/50 (64) 98 Mechanical Ventilator 30.00 05/08/18 15:00 62 23 102/44 (63) 98 Mechanical Ventilator 30.00 05/08/18 14:15 68 24 97 30 05/08/18 14:00 63 23 133/50 (77) 98 Mechanical Ventilator 30.00 05/08/18 13:00 61 23 115/38 (63) 100 Mechanical Ventilator 30.00 05/08/18 13:00 61 05/08/18 12:29 98.1 05/08/18 12:00 76 23 85/33 (50) 97 Mechanical Ventilator 30.00 05/08/18 12:00 100 Mechanical Ventilator 30 05/08/18 11:00 67 24 85/75 (78) 100 Mechanical Ventilator 30.00 05/08/18 10:30 65 24 100 30 05/08/18 10:00 66 23 102/46 (64) 100 Mechanical Ventilator 30.00 05/08/18 09:00 66 23 98/56 (70) 100 Mechanical Ventilator 30.00 05/08/18 08:49 64 24 100 30 05/08/18 08:29 63 23 88/52 100 Mechanical Ventilator 30.00 05/08/18 08:01 99.1 05/08/18 08:00 72 24 85/50 (62) 100 Mechanical Ventilator 30.00 05/08/18 08:00 100 Mechanical Ventilator 30 05/08/18 07:00 84 05/08/18 07:00 84 24 116/62 (80) 96 Mechanical Ventilator 30.00 05/08/18 06:52 78 24 100 30 05/08/18 06:38 Mechanical Ventilator 30.00 05/08/18 06:00 67 28 98/58 (71) 100 Mechanical Ventilator 40.00 I & O 05/09/18 07:00 Intake Total 7050 ml Output Total 990 ml Balance 6060 ml Height & Weight Height: 6'4.00" Weight: 99lbs. 8.0oz. 45.873000rf; 25.7 BMI Method:Stated General Appearance: Other (Intubated) HEENT: PERRL/EOMI Respiratory: Respiratory Distress, Rhonci, Other (intubated) Cardiovascular: Regular Rate, Rhythm Capillary Refill: Less Than 3 Seconds Gastrointestinal: normal bowel sounds, non tender, soft, no organomegaly, no pulsatile mass Extremity: No Calf Tenderness, No Pedal Edema Neurologic/Psychiatric: Other (sedated) Results Lab Laboratory Tests 05/07/18 16:48 05/08/18 01:40 05/08/18 05:25 05/08/18 11:02 05/08/18 11:13 05/09/18 03:10 Assessment/Plan Assessment/Plan Acute respiratory distress/failure -Continue vent Pneumonia with severe sepsis -Continue vancomycin -Garcia cultures pending Hypotension -IVF -levophed Bradycardia -cardiology consulted -atropine prn Anemia -Monitor -Occult stool -GI ppx 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 RN is giving PRN Atropine. Exam Exam General Appearance: Other (Intubated) HEENT: PERRL/EOMI Respiratory: Respiratory Distress, Rhonci, Other (intubated) Cardiovascular: Bradycardia Capillary Refill: Less Than 3 Seconds Gastrointestinal: normal bowel sounds, non tender, soft, no organomegaly, no pulsatile mass Extremity: No Calf Tenderness, No Pedal Edema Neurologic/Psychiatric: Other (sedated) Assessment/Plan Assessment/Plan Acute respiratory distress/failure -Continue vent Pneumonia with severe sepsis -Continue vancomycin, and zosyn -Garcia cultures pending Hypotension -IVF -Echo is pending for today -Levophed- titrate to d/c as tolerated Bradycardia- possibly secondary to Precedex -D/C precedex. Will add Fentanyl gtt -If pt continues to be hypotensive and bradycardic will change to dopamine. -cardiology consulted -atropine prn Metastatic renal carcinoma - mets to lung -Last chemo was 04/23 -Follows with Dr. Mcneil Anemia -Monitor -Occult stool -GI ppx Renal clear cell carcinoma with metastasis to Lung -Oncology is following -Last Chemo 04/23 -nephrectomy 2017 Metabolic acidosis with renal failure -Monitor -IVF CHRIS CRUZ MED STUDENT May 09, 2018 05:29 ANETA HAWKINS DO May 09, 2018 05:35
[2018-05-09] MEDS ORDERED: SODIUM BICARB 8.4% 50 MEQ/50 ML (ABBOTT) SYR IV ONE (05:45)
[2018-05-09] MEDS ORDERED: fentaNYL INJECTION 1,250 MCG in NS (IVPB) 250 ML IV SCH ×3 (06:00→19:00)
[2018-05-09] MEDS ORDERED: methylPREDNISolone 125 MG (Solu-MEDROL) VIAL IVP SCH (06:00)
--- NOTE | 2018-05-09 07:23 | Diagnostic Imaging Report ---
INDICATION: Pneumonia. COMPARISON: 05/08/2018. FINDINGS: Single view of the chest demonstrates stable support lines. The heart is prominent with overall less central vascular congestion. Infiltrates persist in both bases. Trace effusions are noted. There is no pneumothorax. IMPRESSION: 1. Well-positioned support lines. 2. Cardiac enlargement with decreased central vascular congestion. 3. Stable infiltrates in both bases with trace effusion. Dictated by: Dictated on workstation # [id number]
[2018-05-09] MEDS: CHLORHEXIDINE 0.12% SOLN 15 ML (PERIDEX) UDC PO SCH ×2 (08:16→21:21)
[2018-05-09] MEDS: VANCOMYCIN 1500 MG/NS 500 ML IVPB IV SCH ×2 (08:24)
--- NOTE | 2018-05-09 08:26 | Consultation-Cardiology ---
HPI-Cardiology Cardiology Consultation: Date of Consultation 05/09/18 Time Seen by a Provider: 08:20 Date of Admission 05-07-18 Attending Physician Silver Nation MD Admitting Physician Silver Naiton MD Consulting Physician Erika Del Rosario MD HPI: Chief Complaint: Bradycardia Unable to obtain information from patient. Currently intubated and sedated. Information obtained via chart review and nursing. He was seen at [facility] on 05-07-18 d/t increasing dyspnea, cough. He was found to be hypoxic and sent to the [facility] ED. CXR showed pneumonia. Condition continued to worsen requiring intubation. He currently has a niece at the bedside. She reports they were unaware he had been feeling unwell until they were called yesterday following his hospitalization. She states prior to this he is typically very active. Review of Systems-Cardiology Review of Systems Other comments Unable to obtain d/t intubation and sedation All Other Systems Reviewed Negative Unless Noted: Yes IFL-[id number]-[id number] Hx Patient Social History Alcohol Use: Denies Use Recreational Drug Use: No Smoking Status: Current Everyday Smoker Type Used: Cigarettes Recent Foreign Travel: No Recent Infectious Disease Expo: No Hospitalization with Isolation: Denies Physical Abuse Screen: No Sexual Abuse: No Immunizations Up To Date Tetanus Booster (TDap): More than 5yrs Date of Pneumonia Vaccine: Sep 08, 2014 Date of Influenza Vaccine: Mar 03, 2018 Past Medical History PMH As described under Assessment. Family Medical History Family Medical History: Niece reports family h/o cancer and diabetes. No reported family h/o CAD. Family History: Diabetes mellitus 19 FATHER 19 MOTHER G8 BROTHER FH: skin cancer 19 MOTHER Family history: Arthritis Family history: Coronary thrombosis Family history: Diabetes mellitus History of - respiratory disease No Family History of: Abdominal aortic aneurysm Kimball's disease Alcoholism Aphasia Cancer Cancer of colon Cataract Chest pain Congenital heart disease Congestive heart failure Cystic fibrosis Dementia Dysphagia Family history: Allergy Family history: Alzheimer's disease Family history: Asthma Family history: Breast disease Family history: Cardiovascular disease Family history: Gastrointestinal disease Family history: Glaucoma Family history: Hypertension Family history: Osteoporosis Family history: Thyroid disorder Headache Hearing loss Heart disease Hereditary disease History of - anemia History of - disorder History of drug abuse Human immunodeficiency virus (HIV) seropositivity Hypercholesterolemia Infertile Kidney disease Malignant neoplasm of lung Myocardial infarction Parkinson's disease Prostate cancer Psychotic disorder Seizure disorder Stroke Tuberculosis Visual impairment Allergies and Home Medications Allergies Coded Allergies: meperidine (Verified Allergy, Unknown, RASH, Pt has received Fentanyl w/o issue, 04/19/17) Home Medications Ascorbic Acid 500 Mg Tablet, 500 MG PO DAILY, (Reported) Calcium Carbonate/Vitamin D3 1 Each Tablet, 1 TAB PO BID, (Reported) Cholecalciferol (Vitamin D3) 2,000 Unit Capsule, 2,000 UNIT PO DAILY, (Reported) Colestipol HCl 1 Gm Tablet, 2 GM PO BID, (Reported) TAKES 2 (1GM) TABLET Ferrous Sulfate 325 Mg Tablet, 325 MG PO BID, (Reported) Gabapentin 300 Mg Capsule, 300 MG PO TID, (Reported) Glimepiride 4 Mg Tablet, 4 MG PO BID, (Reported) Insulin Detemir 100 Unit/1 Ml Insuln.pen, 20 UNITS SC HS, (Reported) Krill/Om-3/Dha/Epa/Phospho/Ast 1 Each Capsule, 1 CAP PO DAILY, (Reported) Lisinopril 20 Mg Tablet, 20 MG PO DAILY, (Reported) Lutein 20 Mg Tablet, 40 MG PO BID, (Reported) Magnesium Oxide 400 Mg Tablet, 400 MG PO DAILY, (Reported) Metformin HCl 500 Mg Tablet, 500 MG PO BID, (Reported) Potassium Gluconate 99 Mg Tablet, 99 MG PO DAILY, (Reported) Flako AC/Safflower Oil 52 Ml Oil, TP BID, (Reported) APPLY TO SCARS Patient Home Medication List Home Medication List Reviewed: Yes Physical Exam-Cardiology Physical Exam Vital Signs/I&O 05/11/18 05/12/18 05/12/18 05/12/18 23:45 00:30 03:45 04:30 Temp 97.5 96.7 Pulse 73 77 Resp 22 18 B/P (MAP) 157/76 (103) 140/70 (93) Pulse Ox 92 92 98 91 O2 Delivery Nasal Cannula Nasal Cannula Nasal Cannula Nasal Cannula O2 Flow Rate 2.00 2.00 2.00 2.00 05/12/18 05/12/18 05/12/18 07:47 08:00 08:00 Temp 98.5 Pulse 98 Resp 20 B/P (MAP) 139/66 (90) Pulse Ox 75 92 92 O2 Delivery Nasal Cannula Nasal Cannula Nasal Cannula O2 Flow Rate 2.00 2.00 2.00 05/12/18 00:00 Intake Total 1260 ml Output Total 1250 ml Balance 10 ml Capillary Refill : Less Than 3 Seconds Constitutional: well-developed, well-nourished HEENT: oral hygience is good; No ulceration Neck: No carotid bruit; carotid pulses are 2 + bilaterally Respiratory: No accessory muscle use, No respiratory distress; other (coarse lower lobes bilat; currently intubated) Cardiovascular: regular rate-rhythm; No JVD; S1 and S2 Gastrointestinal: soft, audible bowel sounds Rectal: deferred Genital/Rectal: other (Urinary catheter to DD; clear, yellow urine) Extremities: no lower extremity edema bilateral Neurologic/Psychiatric: other (intubated/sedated) Skin: normal color, warm/dry; No ulcerations Data Review Labs Laboratory Tests 05/11/18 11:00: Stool Occult Blood Immunoassay NEGATIVE, Glucometer 251H 05/11/18 12:10: Sodium Level 146H, Potassium Level 5.3H, Chloride Level 116H, Carbon Dioxide Level 20L, Anion Gap 10, Blood Urea Nitrogen 51H, Creatinine 1.77H, Estimat Glomerular Filtration Rate 39, BUN/Creatinine Ratio 29, Glucose Level 221H, Calcium Level 7.9L 05/11/18 16:08: Glucometer 233H 05/11/18 20:34: Glucometer 298H 05/12/18 05:04: White Blood Count 16.9H, Red Blood Count 3.56L, Hemoglobin 10.6L, Hematocrit 34L , Mean Corpuscular Volume 96, Mean Corpuscular Hemoglobin 30, Mean Corpuscular Hemoglobin Concent 31L, Red Cell Distribution Width 15.0H, Platelet Count 220, Mean Platelet Volume 9.8, Neutrophils (%) (Auto) 91H, Lymphocytes (%) (Auto) 4L , Monocytes (%) (Auto) 5, Eosinophils (%) (Auto) 0, Basophils (%) (Auto) 0, Neutrophils # (Auto) 15.4H, Lymphocytes # (Auto) 0.7L, Monocytes # (Auto) 0.8, Eosinophils # (Auto) 0.0, Basophils # (Auto) 0.0, Sodium Level 143, Potassium Level 5.9H, Chloride Level 113H, Carbon Dioxide Level 23, Anion Gap 7, Blood Urea Nitrogen 40H, Creatinine 1.50H, Estimat Glomerular Filtration Rate 47, BUN/ Creatinine Ratio 27, Glucose Level 242H, Calcium Level 8.1L Microbiology 05/07/18 Blood Culture - Preliminary, Resulted No growth 05/09/18 MRSA Screen - Final, Complete MRSA not isolated Radiology NAME: JAROD LOJA [facility] REC#: [id number] PT STATUS: ADM IN : 1955 PHYSICIAN: ANETA HAWKINS DO ADMIT DATE: 05/07/18/ICU Signed Date of Exam: 05/09/18 CHEST 1 VIEW, AP/PA ONLY INDICATION: Pneumonia. COMPARISON: 05/08/2018. FINDINGS: Single view of the chest demonstrates stable support lines. The heart is prominent with overall less central vascular congestion. Infiltrates persist in both bases. Trace effusions are noted. There is no pneumothorax. IMPRESSION: 1. Well-positioned support lines. 2. Cardiac enlargement with decreased central vascular congestion. 3. Stable infiltrates in both bases with trace effusion. Dictated by: Dictated on workstation # [id number] Dict: 05/09/18624 Trans: 05/09/18828 Interpreted by: ZARI BHAT Electronically signed by: ZARI BHAT 05/09/18828 ECG Impression ECG Initial ECG Rhythm: S.Giovani A/P-Cardiology Assessment/Admission Diagnosis Sinus bradycardia - received one dose of Atropine this morning for HR of 35 Pneumonia with sepsis- management per medical/surgical services Hypotension secondary to sepsis - BP improved Acute respiratory failure requiring intubation H/O renal cell carcinoma - post left nephrectomy in 2006 at [facility] Metastatic lung cancer - receiving chemo (last tx on 04-23-18) - management per oncology services (Dr. Mcneil) Acute on chronic renal failure Metabolic acidosis - has received Bicarb - management per pulmonary services Clinical Quality Measures DVT/VTE Risk/Contraindication: Risk Factor Score Per Nursin RFS Level Per Nursing on Admit: 4+=Very High Smoking Cessation Counseling: Counseling-Symptomatic: 3-10 Minutes Discussed Options Including: Nicotine Patch NOHEMY GRANADOS May 09, 2018 08:26
--- NOTE | 2018-05-09 08:30 | Progress Note-Hospitalist ---
Subjective HPI/CC On Admission Date Seen by Provider: May 09, 2018 Time Seen by Provider: 08:27 Pt is a 62yoCM with a PMH of metastatic renal cell carcinoma, IDDMII, HTN who presented to the ER from [facility] who presented to the ER for hypoxia. He is currently intubated and sedated and unable to provide any history. Reportedly he was found to have sats in the 60s in the [facility] and sent to the ER. He was started on oxygen and responded to 4-5lpm via NC and was able to maintain his sats. He was found ot have bilateral pneumonia and was admitted to the floor. He continued to decompensate with confusion and was found to be hypercarbic. He was transferred to the unit and trialed on BiPAP but was unable to tolerate it and eventually could not no longer protect his airway. ER physician responded for emergent intubation. This morning his ABG has improved but he is now hypotensive and receiving fluid bolus. Subjective/Events-last exam Pt is intubated and sedated. Unable to answer ROS. RN reports episode of bradycardia overnight requiring atropine. Focused Exam Lactate Level 05/07/18 16:48: Lactic Acid Level 0.75 05/07/18 23:15: Lactic Acid Level 0.46L 05/08/18 01:40: Lactic Acid Level 0.56 Objective Exam Vital Signs Vital Signs Date Time Temp Pulse Resp B/P (MAP) Pulse Ox O2 Delivery O2 Flow Rate FiO2 05/09/18 06:33 71 24 95 25 05/09/18 06:00 147/59 (88) Mechanical Ventilator 25.00 05/09/18 04:00 97.9 Capillary Refill : Less Than 3 Seconds General Appearance: Other (on vent) Respiratory: Decreased Breath Sounds, Other (on vent) Cardiovascular: Regular Rate, Rhythm Gastrointestinal: Normal Bowel Sounds, Non Tender, Soft Extremity: No Calf Tenderness, No Pedal Edema Results/Procedures Lab Laboratory Tests 05/08/18 11:02 05/08/18 11:13 05/09/18 03:10 Patient resulted labs reviewed. Imaging: Reviewed Imaging Report Assessment/Plan Assessment and Plan Assess & Plan/Chief Complaint Acute Respiratory Failure Diagnosis/Problems Diagnosis/Problems (1) Septic shock Status: Acute Assessment & Plan: Continue on Vanc and Zosyn Cultures done in ER Required pressors overnight but now titrate off Blood cultures negative Flu negative (2) Bradycardia Assessment & Plan: Atropine given overnight DC precedex Cardiology consulted, appreciate recs (3) Acute respiratory failure Status: Acute Assessment & Plan: On vent Pulm consulted, appreciate recs ABG improved likely due to pneumonia May need bronch Qualifiers: Respiratory failure complication: hypoxia and hypercapnia Qualified Codes: J96.01 - Acute respiratory failure with hypoxia; J96.02 - Acute respiratory failure with hypercapnia (4) Acute renal failure Status: Acute Assessment & Plan: Acute on chronic kidney disease Hyperkalemia resolved but acidosis Also markedly hyperchloremic and likely contributing Monitor on telemetry Repeat Monitor UOP- adequate (5) 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 Assessment & Plan: Follows with Dr Mcneil Consulted, appreciate recs On Opdivo On steroids for possible opdivo induced pneumonitis Qualifiers: Laterality: unspecified laterality Qualified Codes: C78.00 - Secondary malignant neoplasm of unspecified lung; C64.9 - Malignant neoplasm of unspecified kidney, except renal pelvis (6) Hyperkalemia Status: Resolved Assessment & Plan: Resolved Resolution Date/Time: 05/09/18 @ 09:04 (7) Insulin dependent diabetes mellitus Assessment & Plan: Increase insulin due to hyperglycemia Likely due to steroids Clinical Quality Measures DVT/VTE Risk/Contraindication: Risk Factor Score Per Nursin RFS Level Per Nursing on Admit: 4+=Very High Smoking Cessation Counseling: Counseling-Symptomatic: 3-10 Minutes Discussed Options Including: Nicotine Patch RYANNE DYSON MD May 09, 2018 08:30
[2018-05-09 10:11] LABS: BILIRUBIN,URINE NEGATIVE (NEGATIVE); CLARITY,URINE SLIGHTLY CLOUDY; COLOR,URINE YELLOW; GLUCOSE, URINE (UA) 3+ (NEGATIVE); KETONES,URINE 2+ (NEGATIVE); LEUKOCYTE ESTERASE ,URINE 1+ (NEGATIVE); NITRITE,URINE NEGATIVE (NEGATIVE); PH,URINE 5 (5-9); PROTEIN,URINE 2+ (NEGATIVE); UROBILINOGEN,URINE NORMAL (NORMAL)
--- NOTE | 2018-05-09 10:13 | Oncology Progress Note ---
Subjective Date Seen by a Provider: May 09, 2018 Time Seen by a Provider: 10:08 Subjective/Events-last exam Remains on vent, sedated. Still a lot respiratory secretions. BP is better today PICC line placed yesterday. Good urine output Data Review Labs Laboratory Tests 05/11/18 12:10 05/12/18 05:04 Laboratory Tests 05/09/18 11:33: Glucometer 340H 05/09/18 17:07: Glucometer 258H 05/09/18 21:24: Glucometer 289H 05/10/18 04:10: White Blood Count 14.0H, Red Blood Count 3.20L, Hemoglobin 9.7L, Hematocrit 29L , Neutrophils (%) (Auto) 89H, Lymphocytes (%) (Auto) 5L, Neutrophils # (Auto) 12.5H, Lymphocytes # (Auto) 0.7L, Arterial Blood Partial Pressure O2 52L, Arterial Blood HCO3 22L, Arterial Blood Oxygen Saturation 88L, Arterial Blood Base Excess -3.0L, Chloride Level 116H, Carbon Dioxide Level 19L, Blood Urea Nitrogen 48H, Creatinine 1.73H, Glucose Level 251H, Calcium Level 7.3L 05/10/18 13:11: Glucometer 175H 05/10/18 21:03: Glucometer 316H 05/11/18 03:55: White Blood Count 19.4H, Red Blood Count 3.57L, Hemoglobin 10.7L, Hematocrit 34L , Red Cell Distribution Width 14.9H, Neutrophils (%) (Auto) 93H, Lymphocytes (% ) (Auto) 3L, Neutrophils # (Auto) 18.0H, Lymphocytes # (Auto) 0.6L, Sodium Level 146H, Potassium Level 5.5H, Chloride Level 117H, Carbon Dioxide Level 20L , Blood Urea Nitrogen 55H, Creatinine 1.98H, Glucose Level 225H, Calcium Level 7.9L 05/11/18 08:22: 05/11/18 11:00: Glucometer 251H 05/11/18 12:10: Sodium Level 146H, Potassium Level 5.3H, Chloride Level 116H, Carbon Dioxide Level 20L, Blood Urea Nitrogen 51H, Creatinine 1.77H, Glucose Level 221H, Calcium Level 7.9L 05/11/18 16:08: Glucometer 233H 12/9/18 20:34: Glucometer 298H 05/12/18 05:04: White Blood Count 16.9H, Red Blood Count 3.56L, Hemoglobin 10.6L, Hematocrit 34L , Mean Corpuscular Hemoglobin Concent 31L, Red Cell Distribution Width 15.0H, Neutrophils (%) (Auto) 91H, Lymphocytes (%) (Auto) 4L, Neutrophils # (Auto) 15.4H, Lymphocytes # (Auto) 0.7L, Potassium Level 5.9H, Chloride Level 113H, Blood Urea Nitrogen 40H, Creatinine 1.50H, Glucose Level 242H, Calcium Level 8.1L Physical Exam Vital Signs Vital Signs - First Documented 05/07/18 23:00 FiO2 70 Capillary Refill : Less Than 3 Seconds Height, Weight, BMI Height: 6'4.00" Weight: 212lbs. 6.0oz. 96.610563td; 25.7 BMI Method:Stated General Appearance: Other (remains on vent, sedated) Focused Exam Lactate Level Impression & Plan Impression & Plan 1. Respiratory failure on vent. Pneumonia. ? Pneumonitis from Opdivo immunotherapy. Continue both antibiotics and add steroid until we can prove it is NOT from Opdivo pneumonitis otherwise. Solumderol 125mg q 6hr IV. Continue until patient is extubated and stable, then wean off over a week. Appreciate Dr Scanlon insight and help. 2. 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 Pathology approved lung metastasis 04/29/17. Started Opdivo treatment 09-28-2017. CT scan 03-20-18 showed improvement. Last cycle #11 was given 04/23/2018. 3. Hypotensive, sepsis. PICC line placement for IVF. 4. h/o severe pharyngitis, tonsillitis with lymphadenopathy no evidence of abscess on CT neck 10/2016. Resolved. 5. Type II diabetes on insulin 6. Acute and on chronic renal insufficiency, 7. I will be off this weekend. Call hospitalist for help. Clinical Quality Measures DVT/VTE Risk/Contraindication: Risk Factor Score Per Nursin RFS Level Per Nursing on Admit: 4+=Very High Smoking Cessation Counseling: Counseling-Symptomatic: 3-10 Minutes Discussed Options Including: Nicotine Patch ARABELLA BILLY MD May 09, 2018 10:13
[2018-05-09 10:24] LABS: AMORPHOUS SEDIMENT,UR MOD AMOR URATES /LPF; BACTERIA,URINE NEGATIVE /HPF; RBC,URINE RARE /HPF; WBC,URINE 0-2 /HPF
[2018-05-09] MEDS ORDERED: fentaNYL INJECTION 1,250 MCG in NS (IVPB) 225 ML IV SCH ×2 (10:45→12:34)
[2018-05-09] MEDS ORDERED: inSUlin ASPART (NovoLOG) 1 UNIT/0.01 ML (CHARGE PER UNIT) SC SCH (11:00)
[2018-05-09] MEDS: methylPREDNISolone 40 MG/ML (Solu-MEDROL) VIAL IV SCH ×3 (11:35→23:24)
[2018-05-09] MEDS ORDERED: TROUGH ORDER-PHARMACY XX NR (12:00)
[2018-05-09] MEDS ORDERED: NS IV SCH (13:00)
[2018-05-09] MEDS ORDERED: VANCOMYCIN IV SCH (13:00)
[2018-05-09] MEDS ORDERED: LORazepam INJ 2 MG/ML (ATIVAN) VIAL ONE (13:36)
[2018-05-09] MEDS: LORazepam INJ 2 MG/ML (ATIVAN) VIAL IVP PRN ×2 (13:39→17:43)
[2018-05-09] MEDS ORDERED: aCETylcysteine 20% (MUCOMYST) 30ML SOLN VIAL ONE (14:13)
[2018-05-09] MEDS: aCETylcysteine 20% (MUCOMYST) 30ML SOLN VIAL INH SCH ×2 (14:32→22:25)
--- NOTE | 2018-05-09 14:34 | Consultation-Cardiology ---
HPI-Cardiology Cardiology Consultation: Date of Consultation 05/09/18 Time Seen by a Provider: 09:15 Date of Admission Attending Physician Silver Nation MD Admitting Physician Silver Nation MD Consulting Physician KANG PEREZ MD, MA, FACP, FACC, FSCAI, CCDS HPI: Chief Complaint: Bradycardia Unable to obtain information from patient. Currently intubated and sedated. Information obtained via chart review and nursing. He was seen at [facility] on 05-07-18 d/t increasing dyspnea, cough. He was found to be hypoxic and sent to the [facility] ED. CXR showed pneumonia. Condition continued to worsen requiring intubation. His niece has reported they were unaware he had been feeling unwell until they were called following his hospitalization. She has stated that prior to this he was typically very active. Review of Systems-Cardiology Review of Systems Constitutional: other (He is intubated and on mech vent and unable to provide any history) All Other Systems Reviewed Negative Unless Noted: Yes [id number] Hx Patient Social History Alcohol Use: Denies Use Recreational Drug Use: No Smoking Status: Current Everyday Smoker Type Used: Cigarettes Recent Foreign Travel: No Recent Infectious Disease Expo: No Hospitalization with Isolation: Denies Physical Abuse Screen: No Sexual Abuse: No Immunizations Up To Date Tetanus Booster (TDap): More than 5yrs Date of Pneumonia Vaccine: Sep 08, 2014 Date of Influenza Vaccine: Mar 03, 2018 Past Medical History PMH As described under Assessment. Family Medical History Family Medical History: Niece reports family h/o cancer and diabetes. No reported family h/o CAD. Family History: Diabetes mellitus 19 FATHER 19 MOTHER G8 BROTHER FH: skin cancer 19 MOTHER Family history: Arthritis Family history: Coronary thrombosis Family history: Diabetes mellitus History of - respiratory disease No Family History of: Abdominal aortic aneurysm [place]'s disease Alcoholism Aphasia Cancer Cancer of colon Cataract Chest pain Congenital heart disease Congestive heart failure Cystic fibrosis Dementia Dysphagia Family history: Allergy Family history: Alzheimer's disease Family history: Asthma Family history: Breast disease Family history: Cardiovascular disease Family history: Gastrointestinal disease Family history: Glaucoma Family history: Hypertension Family history: Osteoporosis Family history: Thyroid disorder Headache Hearing loss Heart disease Hereditary disease History of - anemia History of - disorder History of drug abuse Human immunodeficiency virus (HIV) seropositivity Hypercholesterolemia Infertile Kidney disease Malignant neoplasm of lung Myocardial infarction Parkinson's disease Prostate cancer Psychotic disorder Seizure disorder Stroke Tuberculosis Visual impairment Allergies and Home Medications Allergies Coded Allergies: meperidine (Verified Allergy, Unknown, RASH, Pt has received Fentanyl w/o issue, 04/19/17) Home Medications Ascorbic Acid 500 Mg Tablet, 500 MG PO DAILY, (Reported) Calcium Carbonate/Vitamin D3 1 Each Tablet, 1 TAB PO BID, (Reported) Cholecalciferol (Vitamin D3) 2,000 Unit Capsule, 2,000 UNIT PO DAILY, (Reported) Colestipol HCl 1 Gm Tablet, 2 GM PO BID, (Reported) TAKES 2 (1GM) TABLET Ferrous Sulfate 325 Mg Tablet, 325 MG PO BID, (Reported) Gabapentin 300 Mg Capsule, 300 MG PO TID, (Reported) Glimepiride 4 Mg Tablet, 4 MG PO BID, (Reported) Insulin Detemir 100 Unit/1 Ml Insuln.pen, 20 UNITS SC HS, (Reported) Krill/Om-3/Dha/Epa/Phospho/Ast 1 Each Capsule, 1 CAP PO DAILY, (Reported) Lisinopril 20 Mg Tablet, 20 MG PO DAILY, (Reported) Lutein 20 Mg Tablet, 40 MG PO BID, (Reported) Magnesium Oxide 400 Mg Tablet, 400 MG PO DAILY, (Reported) Metformin HCl 500 Mg Tablet, 500 MG PO BID, (Reported) Potassium Gluconate 99 Mg Tablet, 99 MG PO DAILY, (Reported) Flako AC/Safflower Oil 52 Ml Oil, TP BID, (Reported) APPLY TO SCARS Patient Home Medication List Home Medication List Reviewed: Yes Physical Exam-Cardiology Physical Exam Vital Signs/I&O 05/09/18 05/09/18 05/09/18 05/09/18 02:43 03:00 04:00 04:00 Temp 97.9 Pulse 51 55 59 Resp 24 24 24 B/P (MAP) 107/59 (75) 99/53 (68) Pulse Ox 96 95 96 O2 Delivery Mechanical Ventilator Mechanical Ventilator Mechanical Ventilator O2 Flow Rate 25.00 25.00 25.00 FiO2 25 05/09/18 05/09/18 05/09/18 05/09/18 04:00 04:57 05:00 05:56 Pulse 48 47 Resp 24 23 B/P (MAP) 123/48 (73) 146/59 Pulse Ox 96 96 97 O2 Delivery Mechanical Ventilator Mechanical Ventilator O2 Flow Rate 25.00 FiO2 25 25 05/09/18 05/09/18 05/09/18 05/09/18 06:00 06:33 07:00 07:00 Pulse 68 71 58 61 Resp 24 24 24 B/P (MAP) 147/59 (88) Pulse Ox 96 95 96 O2 Delivery Mechanical Ventilator Mechanical Ventilator O2 Flow Rate 25.00 25.00 FiO2 25 05/09/18 05/09/18 05/09/18 05/09/18 08:00 08:00 08:25 08:29 Temp 96.6 Pulse 54 63 Resp 24 24 B/P (MAP) 115/51 (72) Pulse Ox 97 96 99 O2 Delivery Mechanical Ventilator Mechanical Ventilator O2 Flow Rate 25.00 FiO2 25 25 05/09/18 05/09/18 05/09/18 05/09/18 09:00 09:39 09:48 12:00 Pulse 80 70 76 Resp 24 24 B/P (MAP) 132/92 Pulse Ox 95 99 96 O2 Delivery Mechanical Ventilator Mechanical Ventilator Mechanical Ventilator O2 Flow Rate 25.00 25.00 FiO2 25 25 05/09/18 05/09/18 05/09/18 12:11 13:07 13:11 Temp 97.0 Pulse 62 66 Resp 24 B/P (MAP) 135/48 Pulse Ox 100 FiO2 25 05/09/18 00:00 Intake Total 4600 ml Output Total 650 ml Balance 3950 ml Capillary Refill : Less Than 3 Seconds Constitutional: well-developed, well-nourished HEENT: oral hygience is good; No ulceration Neck: No carotid bruit; carotid pulses are 2 + bilaterally Respiratory: No accessory muscle use, No respiratory distress; other (coarse lower lobes bilat; currently intubated) Cardiovascular: regular rate-rhythm; No JVD; S1 and S2 Gastrointestinal: soft, audible bowel sounds Rectal: deferred Genital/Rectal: other (Urinary catheter to DD; clear, yellow urine) Extremities: no lower extremity edema bilateral Neurologic/Psychiatric: other (intubated/sedated) Skin: normal color, warm/dry; No ulcerations Data Review Labs Laboratory Tests 05/08/18 17:23: Glucometer 211H 05/09/18 00:04: Glucometer 276H 05/09/18 03:10: White Blood Count 17.5H, Red Blood Count 3.52L, Hemoglobin 10.6L, Hematocrit 33L , Mean Corpuscular Volume 94, Mean Corpuscular Hemoglobin 30, Mean Corpuscular Hemoglobin Concent 32, Red Cell Distribution Width 14.2, Platelet Count 230, Mean Platelet Volume 10.1, Neutrophils (%) (Auto) 95H, Lymphocytes (%) (Auto) 4L , Monocytes (%) (Auto) 1, Eosinophils (%) (Auto) 0, Basophils (%) (Auto) 0, Neutrophils # (Auto) 16.5H, Lymphocytes # (Auto) 0.8L, Monocytes # (Auto) 0.2, Eosinophils # (Auto) 0.0, Basophils # (Auto) 0.0, Sodium Level 140, Potassium Level 4.7, Chloride Level 111H, Carbon Dioxide Level 14L, Anion Gap 15H, Blood Urea Nitrogen 53H, Creatinine 1.99H, Estimat Glomerular Filtration Rate 34, BUN/ Creatinine Ratio 27, Glucose Level 309H, Calcium Level 7.7L, Phosphorus Level 3.7, Magnesium Level 2.0 05/09/18 03:25: Blood Gas Puncture Site LEFT RADIAL, Blood Gas Patient Temperature 97.2, Arterial Blood pH 7.30*L, Arterial Blood Partial Pressure CO2 36, Arterial Blood Partial Pressure O2 53L, Arterial Blood HCO3 18L, Arterial Blood Total CO2 18.8L, Arterial Blood Oxygen Saturation 87L, Arterial Blood Base Excess - 7.7L, Ino Test ARTLINE, Blood Gas Ventilator Setting YES, Blood Gas Inspired Oxygen 25% FIO2 05/09/18 09:50: Urine Color YELLOW, Urine Clarity SLIGHTLY CLOUDY, Urine pH 5, Urine Specific [place] 1.020, Urine Protein 2+H, Urine Glucose (UA) 3+H, Urine Ketones 2+H, Urine Nitrite NEGATIVE, Urine Bilirubin NEGATIVE, Urine Urobilinogen NORMAL, Urine Leukocyte Esterase 1+H, Urine RBC (Auto) 1+H, Urine RBC RARE, Urine WBC 0- 2, Urine Squamous Epithelial Cells 2-5, Urine Crystals NONE, Urine Amorphous Sediment MOD CASSANDRA URATESH, Urine Bacteria NEGATIVE, Urine Casts NONE, Urine Mucus NEGATIVE, Urine Culture Indicated NO 05/09/18 11:33: Glucometer 340H Microbiology 05/07/18 Blood Culture - Preliminary, Resulted No growth 05/08/18 Influenza Types A,B Antigen (BARRON) - Final, Complete Laboratory Tests 05/07/18 16:48 05/08/18 01:40 05/08/18 05:25 05/08/18 11:02 05/08/18 11:13 05/09/18 03:10 A/P-Cardiology Assessment/Admission Diagnosis Sinus bradycardia - received one dose of Atropine this morning for HR of 35 Pneumonia with sepsis- management per Medical services Hypotension secondary to sepsis - BP improved Acute respiratory failure requiring intubation H/O renal cell carcinoma - post left nephrectomy in 2006 at [facility] Metastatic lung cancer - receiving chemo (last tx on 04-23-18) - management per Oncology services (Dr. Mcneil) Acute on chronic renal failure Metabolic acidosis - has received Bicarb - management per Pulmonary services Discussion and Recomendations * Bradycardia likely due to metabolic abnormalities that are continually being corrected * Continue to monitor labs * Echo today * Prognosis guarded Clinical Quality Measures DVT/VTE Risk/Contraindication: Risk Factor Score Per Nursin RFS Level Per Nursing on Admit: 4+=Very High Smoking Cessation Counseling: Counseling-Symptomatic: 3-10 Minutes Discussed Options Including: Nicotine Patch KANG PEREZ MD FACP FAC CCDS May 09, 2018 14:34
[2018-05-09] MEDS ORDERED: inSUlin DETERMIR 1 UNIT/0.01 ML (LEVEMIR) CHARGE PER UNIT SQ SCH (21:00)
[2018-05-10] VITALS (29 sets, daily range): BP systolic 71–179; BP diastolic 49–104
[2018-05-10] MEDS: inSUlin ASPART (NovoLOG) 1 UNIT/0.01 ML (CHARGE PER UNIT) SC SCH ×4 (00:30→21:11)
[2018-05-10] MEDS: PIPERACILLIN/TAZO 4.5 GM/NS 100 ML IV SCH ×6 (01:28→17:50)
[2018-05-10] MEDS: aCETylcysteine 20% (MUCOMYST) 30ML SOLN VIAL INH SCH ×4 (02:41→22:11)
[2018-05-10] MEDS: RT-ALBUTEROL/IPRATROPIUM 3 ML (DUONEB) VIAL INH SCH ×6 (02:41→22:11)
[2018-05-10 04:24] LABS: ABG OXYGEN SATURATION 88 % (94-100); ABG PCO2 37 MMHG (35-45); ABG PH 7.38 (7.37-7.43); ABG PO2 52 MMHG (79-93); ABG TCO2 22.7 MMOL/L (21.0-31.0); BASOPHILS % (AUTO) 0 % (0-10); EOSINOPHILS % (AUTO) 0 % (0-10); HEMATOCRIT 29 % (40-54); HEMOGLOBIN 9.7 G/DL (13.3-17.7); LYMPHOCYTES # (AUTO) 0.7 X 10^3 (1.0-4.0); LYMPHOCYTES % (AUTO) 5 % (12-44); MEAN CORPUSCULAR HEMOGLOBIN 30 PG (25-34); MEAN CORPUSCULAR HGB CONC 33 G/DL (32-36); MEAN CORPUSCULAR VOLUME 92 FL (80-99); MEAN PLATELET VOLUME 9.6 FL (7.4-10.4); MONOCYTES # (AUTO) 0.8 X 10^3 (0.0-1.0); MONOCYTES % (AUTO) 6 % (0-12); NEUTROPHILS # (AUTO) 12.5 X 10^3 (1.8-7.8); NEUTROPHILS % (AUTO) 89 % (42-75); PLATELET COUNT 233 10^3/uL (130-400); RED CELL DISTRIBUTION WIDTH 14.1 % (10.0-14.5)
[2018-05-10 04:25] LABS: ALLENS TEST ARTLINE; INSPIRED O2 25%; VENTILATOR YES
[2018-05-10 04:26] LABS: PATIENT TEMP 96.9
[2018-05-10 04:40] LABS: CALCIUM 7.3 MG/DL (8.5-10.1); CREATININE SERUM 1.73 MG/DL (0.60-1.30); MAGNESIUM 2.1 MG/DL (1.8-2.4); PHOSPHORUS 3.3 MG/DL (2.3-4.7)
[2018-05-10] MEDS: NS IV 1000 ML 1,000 ML IV SCH ×2 (05:09→13:04)
[2018-05-10] MEDS: POTASSIUM CL 10MEQ/50ML IVPB 50 ML IV SCH (05:14)
[2018-05-10] MEDS: MAGNESIUM 1 GM/100 ML IVPB 100 ML IV SCH (05:15)
[2018-05-10] MEDS: methylPREDNISolone 40 MG/ML (Solu-MEDROL) VIAL IV SCH ×3 (05:38→18:04)
[2018-05-10] MEDS: KCL 20 MEQ TAB (K-DUR) PO SCH (06:29)
--- NOTE | 2018-05-10 07:17 | Pulmonary Progress Note ---
Subjective Time Seen by a Provider: 07:23 Subjective/Events-last exam Pt is off Levophed. Currently on Diprivan and Fentanyl gtt. HR has been stable. Sepsis Event Evaluation Height, Weight, BMI Height: 6'4.00" Weight: 240lbs. 6.0oz. 108.215987cc; 25.7 BMI Method:Stated Focused Exam Lactate Level 05/07/18 16:48: Lactic Acid Level 0.75 05/07/18 23:15: Lactic Acid Level 0.46L 05/08/18 01:40: Lactic Acid Level 0.56 Exam Exam Vital Signs Date Time Temp Pulse Resp B/P (MAP) Pulse Ox O2 Delivery O2 Flow Rate FiO2 05/10/18 06:18 67 24 98 25 05/10/18 06:02 63 24 92/58 (69) 98 Mechanical Ventilator 25.00 05/10/18 06:00 63 24 92/58 (69) 98 Mechanical Ventilator 25.00 05/10/18 05:39 62 05/10/18 05:00 64 23 95/57 (70) 98 Mechanical Ventilator 25.00 05/10/18 04:41 66 24 97 25 05/10/18 04:00 97.6 05/10/18 04:00 69 23 110/60 (77) 97 Mechanical Ventilator 25.00 05/10/18 04:00 99 Mechanical Ventilator 25 05/10/18 03:00 62 24 99/53 (68) 96 Mechanical Ventilator 25.00 05/10/18 02:42 62 24 96 25 05/10/18 02:00 67 23 84/52 (63) 95 Mechanical Ventilator 25.00 05/10/18 01:00 61 24 87/52 (64) 96 Mechanical Ventilator 25.00 05/10/18 01:00 67 05/10/18 00:52 61 05/10/18 00:15 61 24 96 25 05/10/18 00:00 97.0 05/10/18 00:00 58 24 117/49 (71) 97 Mechanical Ventilator 25.00 05/10/18 00:00 99 Mechanical Ventilator 25 05/09/18 23:00 63 23 116/49 (71) 96 Mechanical Ventilator 25.00 05/09/18 22:26 75 24 98 25 05/09/18 22:00 58 23 115/43 (67) 96 Mechanical Ventilator 25.00 12/7/18 21:00 61 24 123/44 (70) 97 Mechanical Ventilator 25.00 18 20:24 61 24 97 25 05/09/18 20:00 96.9 Mechanical Ventilator 25.00 05/09/18 20:00 99 Mechanical Ventilator 25 05/09/18 20:00 60 24 114/43 (66) 97 Mechanical Ventilator 25.00 05/09/18 19:00 62 23 117/42 (67) 97 Mechanical Ventilator 25.00 05/09/18 19:00 64 05/09/18 18:51 56 24 98 25 05/09/18 18:06 68 109/41 05/09/18 18:00 65 24 124/44 (70) 98 Mechanical Ventilator 25.00 05/09/18 17:00 63 23 119/89 (99) 99 Mechanical Ventilator 25.00 05/09/18 16:52 99 Mechanical Ventilator 25 05/09/18 16:52 97.4 05/09/18 16:42 24 100 25 05/09/18 16:00 64 24 104/41 (62) 97 Mechanical Ventilator 25.00 05/09/18 15:00 59 23 102/39 (60) 97 Mechanical Ventilator 25.00 05/09/18 14:32 63 24 98 25 05/09/18 14:00 64 23 94/40 (58) 95 Mechanical Ventilator 25.00 05/09/18 13:11 66 135/48 05/09/18 13:07 62 24 100 25 05/09/18 13:00 58 05/09/18 13:00 57 23 112/43 (66) 95 Mechanical Ventilator 25.00 05/09/18 12:11 97.0 05/09/18 12:00 96 Mechanical Ventilator 25 05/09/18 12:00 69 24 124/45 (71) 97 Mechanical Ventilator 25.00 05/09/18 11:00 63 24 102/42 (62) 97 Mechanical Ventilator 25.00 05/09/18 10:00 77 25 106/99 (101) 97 Mechanical Ventilator 25.00 05/09/18 09:48 76 132/92 Mechanical Ventilator 25.00 05/09/18 09:39 70 24 99 25 05/09/18 09:00 80 24 95 Mechanical Ventilator 25.00 05/09/18 08:29 96.6 05/09/18 08:25 63 24 99 25 05/09/18 08:00 96 Mechanical Ventilator 25 05/09/18 08:00 54 24 115/51 (72) 97 Mechanical Ventilator 25.00 I & O 05/10/18 07:00 Intake Total 3015 ml Output Total 1040 ml Balance 1975 ml Height & Weight Height: 6'4.00" Weight: 240lbs. 6.0oz. 108.320527dl; 25.7 BMI Method:Stated General Appearance: Other (remains on vent, sedated) HEENT: PERRL/EOMI Respiratory: Decreased Breath Sounds, Other (on vent) Cardiovascular: Regular Rate, Rhythm Capillary Refill: Less Than 3 Seconds Gastrointestinal: normal bowel sounds, non tender, soft, no organomegaly, no pulsatile mass Extremity: No Calf Tenderness, No Pedal Edema Neurologic/Psychiatric: Other (sedated) Skin: Normal Color, Warm/Dry Results Lab Laboratory Tests 05/08/18 11:02 05/08/18 11:13 05/09/18 03:10 05/10/18 04:10 Assessment/Plan Assessment/Plan Acute respiratory distress/failure -Will start weaning ventilator today. -D/C sedation and wake pt up. -Yesterday when pt was awake on vent he was telling RN he wanted ET tube out. Per family assistant wants him to be a DNR. He is still currently in computer as a DNR. Family is not at bedside yet. I will attempt vent weaning today and we will need to confirm DNR status with patient and family. I have also consulted hospice for education only. Pt has metastatic renal cell cancer with mets to lung. Pneumonia with severe sepsis -Continue vancomycin, and zosyn -Garcia cultures pending Hypotension - resolved -Levophed- D/C'd Bradycardia- improved -D/C precedex. Metabolic acidosis renal failure Metastatic renal carcinoma - mets to lung -Last chemo was 04/23 -Follows with Dr. Mcneil Anemia -Monitor -Occult stool -GI ppx Renal clear cell carcinoma with metastasis to Lung -Oncology is following -Last Chemo 04/23 -nephrectomy 2017 Metabolic acidosis with renal failure -Monitor -IVF ANETA HAWKINS DO May 10, 2018 07:17
[2018-05-10] MEDS: VANCOMYCIN 1500 MG/NS 500 ML IVPB IV SCH ×2 (08:29)
[2018-05-10] MEDS: PANTOPRAZOLE 40 MG (PROTONIX) VIAL IV SCH (08:30)
[2018-05-10] MEDS: CHLORHEXIDINE 0.12% SOLN 15 ML (PERIDEX) UDC PO SCH ×2 (08:37→21:00)
--- NOTE | 2018-05-10 09:28 | Progress Note-Hospitalist ---
Subjective HPI/CC On Admission Date Seen by Provider: May 10, 2018 Time Seen by Provider: 09:23 Pt is a 62yoCM with a PMH of metastatic renal cell carcinoma, IDDMII, HTN who presented to the ER from [facility] who presented to the ER for hypoxia. He is currently intubated and sedated and unable to provide any history. Reportedly he was found to have sats in the 60s in the [facility] and sent to the ER. He was started on oxygen and responded to 4-5lpm via NC and was able to maintain his sats. He was found ot have bilateral pneumonia and was admitted to the floor. He continued to decompensate with confusion and was found to be hypercarbic. He was transferred to the unit and trialed on BiPAP but was unable to tolerate it and eventually could not no longer protect his airway. ER physician responded for emergent intubation. This morning his ABG has improved but he is now hypotensive and receiving fluid bolus. Subjective/Events-last exam Pt is intubated with slight sedation. Appears uncomfortable at this time. Focused Exam Lactate Level 05/07/18 16:48: Lactic Acid Level 0.75 05/07/18 23:15: Lactic Acid Level 0.46L 05/08/18 01:40: Lactic Acid Level 0.56 Objective Exam Vital Signs Vital Signs Date Time Temp Pulse Resp B/P (MAP) Pulse Ox O2 Delivery O2 Flow Rate FiO2 05/10/18 08:05 97 Vapotherm 15.00 25 05/10/18 08:00 64 18 140/74 (96) 05/10/18 07:00 98.2 Capillary Refill : Less Than 3 Seconds General Appearance: Other (intubated, tearful, appears uncomfortable) Respiratory: Lungs Clear, No Respiratory Distress Cardiovascular: Regular Rate, Rhythm Gastrointestinal: Normal Bowel Sounds, Non Tender, Soft Extremity: No Calf Tenderness, No Pedal Edema Neurologic/Psychiatric: Other (easily arousable) Results/Procedures Lab Laboratory Tests 05/10/18 04:10 Patient resulted labs reviewed. Imaging: Reviewed Imaging Report Assessment/Plan Assessment and Plan Assess & Plan/Chief Complaint Acute Respiratory Failure Diagnosis/Problems Diagnosis/Problems (1) Septic shock Status: Acute Assessment & Plan: Continue on Vanc and Zosyn Blood cultures negative Flu negative Leukocytosis improving Afebrile (2) Bradycardia Assessment & Plan: Resolved with discontinuation of precedex Cardiology consulted, appreciate recs (3) Acute respiratory failure Status: Acute Assessment & Plan: On vent- plan to extubate today Pulm consulted, appreciate recs likely due to pneumonia Qualifiers: Respiratory failure complication: hypoxia and hypercapnia Qualified Codes: J96.01 - Acute respiratory failure with hypoxia; J96.02 - Acute respiratory failure with hypercapnia (4) Acute renal failure Status: Acute Assessment & Plan: Acute on chronic kidney disease Improving Monitor UOP- adequate Qualifiers: Acute renal failure type: unspecified Qualified Codes: N17.9 - Acute kidney failure, unspecified (5) 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 Assessment & Plan: Follows with Dr Mcneil Consulted, appreciate recs On Opdivo On steroids for possible opdivo induced pneumonitis Qualifiers: Laterality: unspecified laterality Qualified Codes: C78.00 - Secondary malignant neoplasm of unspecified lung; C64.9 - Malignant neoplasm of unspecified kidney, except renal pelvis (6) Insulin dependent diabetes mellitus Assessment & Plan: Remains hyperglycemic Will increase insulin again Likely due to steroids (7) Hyperkalemia Status: Resolved Assessment & Plan: Resolved Resolution Date/Time: 05/09/18 @ 09:04 Clinical Quality Measures DVT/VTE Risk/Contraindication: Risk Factor Score Per Nursin RFS Level Per Nursing on Admit: 4+=Very High Smoking Cessation Counseling: Counseling-Symptomatic: 3-10 Minutes Discussed Options Including: Nicotine Patch RYANNE DYSON MD May 10, 2018 09:28
--- NOTE | 2018-05-10 09:49 | Diagnostic Imaging Report ---
Portable erect AP chest at 335h. INDICATION: Pneumonia The heart size is within normal limits and stable when compared to 05/09/2018. The atelectasis/infiltrate and fluid involving the left lung base seen previously is again evident and essentially no different. The right lower lobe atelectasis/infiltrate seen on the prior study is perhaps slightly greater. The upper lungs are generally clear. The mediastinum is not widened. The osseous structures are intact. The supportive tubes and lines seem stable in position. IMPRESSION: The appearance of the chest has worsened somewhat since the prior study as there has been a slight increase in atelectasis/infiltrate in the right lower lobe. A followup exam would be recommended for continued evaluation. Dictated by: Dictated on workstation # [id number]
--- NOTE | 2018-05-10 14:30 | Progress Note-Cardiology ---
Cardiology SOAP Progress Note Subjective: Does not report cp or palp or syncope Notes shortness of breath Notes dry throat and dry cough since being taken off of vent Objective: I&O/Vital Signs 05/10/18 05/10/18 05/10/18 05/10/18 02:42 03:00 04:00 04:00 Pulse 62 62 69 Resp 24 24 23 B/P (MAP) 99/53 (68) 110/60 (77) Pulse Ox 96 96 99 97 O2 Delivery Mechanical Ventilator Mechanical Ventilator Mechanical Ventilator O2 Flow Rate 25.00 25.00 FiO2 25 25 05/10/18 05/10/18 05/10/18 05/10/18 04:00 04:41 05:00 05:39 Temp 97.6 Pulse 66 64 62 Resp 24 23 B/P (MAP) 95/57 (70) Pulse Ox 97 98 O2 Delivery Mechanical Ventilator O2 Flow Rate 25.00 FiO2 25 05/10/18 05/10/18 05/10/18 05/10/18 06:00 06:02 06:18 07:00 Temp 98.2 Pulse 63 63 67 66 Resp 24 24 24 16 B/P (MAP) 92/58 (69) 92/58 (69) 105/58 (74) Pulse Ox 98 98 98 99 O2 Delivery Mechanical Ventilator Mechanical Ventilator Mechanical Ventilator O2 Flow Rate 25.00 25.00 25.00 FiO2 25 05/10/18 05/10/18 05/10/18 05/10/18 07:00 08:00 08:00 08:05 Pulse 71 64 Resp 18 B/P (MAP) 140/74 (96) Pulse Ox 99 97 97 O2 Delivery Mechanical Ventilator Vapotherm Vapotherm O2 Flow Rate 25.00 15.00 15.00 FiO2 25 25 05/10/18 05/10/18 05/10/18 05/10/18 09:00 10:00 11:00 11:39 Pulse 92 90 93 Resp 29 28 27 B/P (MAP) 143/80 (101) 150/82 (104) 147/88 (107) Pulse Ox 97 97 96 97 O2 Delivery Vapotherm Vapotherm Vapotherm Vapotherm O2 Flow Rate 25.00 25.00 25.00 10.00 15.00 15.00 15.00 FiO2 25 05/10/18 05/10/18 12:00 13:00 Pulse 98 92 Resp 20 B/P (MAP) 157/83 (107) Pulse Ox 96 O2 Delivery Vapotherm O2 Flow Rate 25.00 15.00 05/10/18 00:00 Intake Total 1300 ml Output Total 490 ml Balance 810 ml Weight (Pounds): 240 Weight (Ounces): 6.0 Weight (Calculated Kilograms): 108.695809 Constitutional: AAO x 3, well-developed, well-nourished Respiratory: No accessory muscle use, No respiratory distress; other (fair bilat air entry; prolonged exp; scattered rhonchi over large damián ways) Cardiovascular: regular rate-rhythm; No JVD; S1 and S2 Gastrointestional: No tender; soft; No guarding, No rebound; audible bowel sounds Genital/Rectal: other (Urinary catheter to DD; clear, yellow urine) Extremities: no lower extremity edema bilateral Neurologic/Psychiatric: other (appropriately responsive; moves all limbs equally) Skin: normal color, warm/dry; No ulcerations Results/Procedures: Labs Laboratory Tests 05/09/18 17:07: Glucometer 258H 05/09/18 21:24: Glucometer 289H 05/10/18 04:10: White Blood Count 14.0H, Red Blood Count 3.20L, Hemoglobin 9.7L, Hematocrit 29L , Mean Corpuscular Volume 92, Mean Corpuscular Hemoglobin 30, Mean Corpuscular Hemoglobin Concent 33, Red Cell Distribution Width 14.1, Platelet Count 233, Mean Platelet Volume 9.6, Neutrophils (%) (Auto) 89H, Lymphocytes (%) (Auto) 5L , Monocytes (%) (Auto) 6, Eosinophils (%) (Auto) 0, Basophils (%) (Auto) 0, Neutrophils # (Auto) 12.5H, Lymphocytes # (Auto) 0.7L, Monocytes # (Auto) 0.8, Eosinophils # (Auto) 0.0, Basophils # (Auto) 0.0, Blood Gas Puncture Site ARTLINE, Blood Gas Patient Temperature 96.9, Arterial Blood pH 7.38, Arterial Blood Partial Pressure CO2 37, Arterial Blood Partial Pressure O2 52L, Arterial Blood HCO3 22L, Arterial Blood Total CO2 22.7, Arterial Blood Oxygen Saturation 88L, Arterial Blood Base Excess -3.0L, Ino Test ARTLINE, Blood Gas Ventilator Setting YES, Blood Gas Inspired Oxygen 25%, Sodium Level 145, Potassium Level 4.0, Chloride Level 116H, Carbon Dioxide Level 19L, Anion Gap 10, Blood Urea Nitrogen 48H, Creatinine 1.73H, Estimat Glomerular Filtration Rate 40, BUN/ Creatinine Ratio 28, Glucose Level 251H, Calcium Level 7.3L, Phosphorus Level 3.3, Magnesium Level 2.1 05/10/18 13:11: Glucometer 175H Microbiology 05/07/18 Blood Culture - Preliminary, Resulted No growth 05/08/18 Gram Stain - Final, Complete 05/08/18 Sputum Culture - Final, Complete Yeast species Laboratory Tests 05/09/18 03:10 05/10/18 04:10 A/P: Assessment: Ac resp failure, improved. He's now off mech vent Sinus bradycardia - likely due to metabolic abnormalities, now resolved Pneumonia with sepsis- management per Medical services Hypotension secondary to sepsis - BP improved H/o renal cell carcinoma - post left nephrectomy in 2006 at [facility] Metastatic lung cancer - receiving chemo (last tx on 04-23-18) - management per Oncology services (Dr. Mcneil) Acute on chronic renal failure, acute component of renal failure is improving Plan: * Bradycardia likely due to metabolic abnormalities that are continually being corrected * Continue to monitor labs * Echo today * Prognosis guarded Clinical Quality Measures Smoking Cessation Counseling: Counseling-Symptomatic: 3-10 Minutes Discussed Options Including: Nicotine Patch KANG PEREZ MD FACP [facility] CCDS May 10, 2018 14:30
[2018-05-10] MEDS ORDERED: ACETAMINOPHEN 500 MG TAB (TYLENOL) ONE (21:05)
[2018-05-10] MEDS: inSUlin DETERMIR 1 UNIT/0.01 ML (LEVEMIR) CHARGE PER UNIT SQ SCH (21:10)
[2018-05-10] MEDS ORDERED: ACETAMINOPHEN 500 MG TAB (TYLENOL) PO PRN (22:30)
[2018-05-11] VITALS (14 sets, daily range): BP systolic 134–177; BP diastolic 62–115
[2018-05-11] MEDS: aCETylcysteine 20% (MUCOMYST) 30ML SOLN VIAL INH SCH ×4 (02:21→23:45)
[2018-05-11] MEDS: RT-ALBUTEROL/IPRATROPIUM 3 ML (DUONEB) VIAL INH SCH ×6 (02:22→23:45)
[2018-05-11 04:05] LABS: BASOPHILS % (AUTO) 0 % (0-10); EOSINOPHILS % (AUTO) 0 % (0-10); HEMATOCRIT 34 % (40-54); HEMOGLOBIN 10.7 G/DL (13.3-17.7); LYMPHOCYTES # (AUTO) 0.6 X 10^3 (1.0-4.0); LYMPHOCYTES % (AUTO) 3 % (12-44); MEAN CORPUSCULAR HEMOGLOBIN 30 PG (25-34); MEAN CORPUSCULAR HGB CONC 32 G/DL (32-36); MEAN CORPUSCULAR VOLUME 94 FL (80-99); MEAN PLATELET VOLUME 9.8 FL (7.4-10.4); MONOCYTES # (AUTO) 0.8 X 10^3 (0.0-1.0); MONOCYTES % (AUTO) 4 % (0-12); NEUTROPHILS % (AUTO) 93 % (42-75); PLATELET COUNT 221 10^3/uL (130-400); RED BLOOD COUNT 3.57 10^6/uL (4.35-5.85); RED CELL DISTRIBUTION WIDTH 14.9 % (10.0-14.5); WHITE BLOOD COUNT 19.4 10^3/uL (4.3-11.0)
[2018-05-11 04:37] LABS: CALCIUM 7.9 MG/DL (8.5-10.1); CREATININE SERUM 1.98 MG/DL (0.60-1.30); MAGNESIUM 2.4 MG/DL (1.8-2.4); PHOSPHORUS 3.5 MG/DL (2.3-4.7); POTASSIUM 5.5 MMOL/L (3.6-5.0)
[2018-05-11] MEDS: methylPREDNISolone 40 MG/ML (Solu-MEDROL) VIAL IV SCH ×4 (06:03→18:23)
[2018-05-11] MEDS ORDERED: SOD POLYSTERENE 15 GM/60 ML (KAYEXALATE) UNIT DOSE PO ONE (07:00)
[2018-05-11] MEDS: POTASSIUM CL 10MEQ/50ML IVPB 50 ML IV SCH (07:38)
[2018-05-11] MEDS: KCL 20 MEQ TAB (K-DUR) PO SCH (07:39)
[2018-05-11] MEDS: MAGNESIUM 1 GM/100 ML IVPB 100 ML IV SCH (07:39)
[2018-05-11] MEDS: inSUlin ASPART (NovoLOG) 1 UNIT/0.01 ML (CHARGE PER UNIT) SC SCH ×4 (07:44→20:47)
[2018-05-11] MEDS ORDERED: TROUGH ORDER-PHARMACY XX NR (08:00)
[2018-05-11] MEDS: NS IV 1000 ML 1,000 ML IV SCH (08:24)
[2018-05-11] MEDS ORDERED: NITROGLYCERIN 2% OINT 1 GM UNIT DOSE PACKET TOP PRN (09:15)
--- NOTE | 2018-05-11 09:15 | Progress Note-Hospitalist ---
Subjective HPI/CC On Admission Date Seen by Provider: May 11, 2018 Time Seen by Provider: 09:09 Pt is a 62yoCM with a PMH of metastatic renal cell carcinoma, IDDMII, HTN who presented to the ER from [facility] who presented to the ER for hypoxia. He is currently intubated and sedated and unable to provide any history. Reportedly he was found to have sats in the 60s in the [facility] and sent to the ER. He was started on oxygen and responded to 4-5lpm via NC and was able to maintain his sats. He was found ot have bilateral pneumonia and was admitted to the floor. He continued to decompensate with confusion and was found to be hypercarbic. He was transferred to the unit and trialed on BiPAP but was unable to tolerate it and eventually could not no longer protect his airway. ER physician responded for emergent intubation. This morning his ABG has improved but he is now hypotensive and receiving fluid bolus. Subjective/Events-last exam Pt reports feeling better. Breathing is better as well. His only request is to be discharged from the hospital. Otherwise no complaints or concerns. Discussed with him that he is not yet ready to DC but ready for transfer out of ICU. Objective Exam Vital Signs Vital Signs Date Time Temp Pulse Resp B/P (MAP) Pulse Ox O2 Delivery O2 Flow Rate FiO2 05/11/18 07:00 82 20 164/111 (128) 99 Nasal Cannula 2.00 05/11/18 04:00 97.9 05/10/18 11:39 25 Capillary Refill : Less Than 3 Seconds General Appearance: No Apparent Distress, WD/WN Respiratory: Lungs Clear, No Respiratory Distress Cardiovascular: Regular Rate, Rhythm, No Murmur Gastrointestinal: Normal Bowel Sounds, Soft Genital/Rectal: Other (roblero in place) Extremity: No Calf Tenderness Neurologic/Psychiatric: Alert, Oriented x3 Results/Procedures Lab Laboratory Tests 05/11/18 03:55 Patient resulted labs reviewed. Imaging: Reviewed Imaging Report Assessment/Plan Assessment and Plan Assess & Plan/Chief Complaint Acute Respiratory Failure Diagnosis/Problems Diagnosis/Problems (1) Septic shock Status: Acute Assessment & Plan: Continue on Zosyn DC Vanc as MRSA screen negative Blood cultures negative Flu negative transfer to floor (2) Acute respiratory failure Status: Acute Assessment & Plan: Extubated 05/10 Pulm consulted, appreciate recs likely due to pneumonia Qualifiers: Respiratory failure complication: hypoxia and hypercapnia Qualified Codes: J96.01 - Acute respiratory failure with hypoxia; J96.02 - Acute respiratory failure with hypercapnia (3) Acute renal failure Status: Acute Assessment & Plan: Acute on chronic kidney disease Creatinine up today with mild hyperkalemia Kayexalate ordered by Dr Scanlon Follow up BMP this afternoon Hold home lisinopril Qualifiers: Acute renal failure type: unspecified Qualified Codes: N17.9 - Acute kidney failure, unspecified (4) 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 Assessment & Plan: Follows with Dr Mcneil Consulted, appreciate recs On Opdivo On steroids for possible opdivo induced pneumonitis Qualifiers: Laterality: unspecified laterality Qualified Codes: C78.00 - Secondary malignant neoplasm of unspecified lung; C64.9 - Malignant neoplasm of unspecified kidney, except renal pelvis (5) Insulin dependent diabetes mellitus Assessment & Plan: Blood sugar improved slightly since yesterday Trend Likely due to steroids (6) Essential (primary) hypertension Status: Chronic Assessment & Plan: BP trending up Holding home lisinopril due to MARÍA Nitro paste added prn (7) Bradycardia Status: Resolved Assessment & Plan: Resolved with discontinuation of precedex Cardiology consulted, appreciate recs Resolution Date/Time: 05/11/18 @ 09:12 Clinical Quality Measures DVT/VTE Risk/Contraindication: Risk Factor Score Per Nursin RFS Level Per Nursing on Admit: 4+=Very High Smoking Cessation Counseling: Counseling-Symptomatic: 3-10 Minutes Discussed Options Including: Nicotine Patch RYANNE DYSON MD May 11, 2018 09:15
[2018-05-11] MEDS: PIPERACILLIN/TAZO 4.5 GM/NS 100 ML IV SCH ×6 (10:23→16:27)
[2018-05-11] MEDS: GABAPENTIN 300 MG (NEURONTIN) CAP PO SCH ×3 (10:23→20:43)
--- NOTE | 2018-05-11 10:43 | Diagnostic Imaging Report ---
INDICATION: Dyspnea. Comparison made with prior examination 05/10/2018. FINDINGS: There are patchy bibasilar infiltrates right greater than left. There are bilateral pleural effusions. There is cardiomegaly. There is some venous congestion. There is no pneumothorax. Mediastinum is unremarkable. IMPRESSION: Bibasilar infiltrates and small bilateral pleural effusions. Cardiomegaly and some central pulmonary venous congestion. Dictated by: Dictated on workstation # [id number]
[2018-05-11] MEDS: PANTOPRAZOLE 40 MG (PROTONIX) VIAL IV SCH ×2 (12:14)
[2018-05-11 12:34] LABS: CALCIUM 7.9 MG/DL (8.5-10.1); CREATININE SERUM 1.77 MG/DL (0.60-1.30); POTASSIUM 5.3 MMOL/L (3.6-5.0)
--- NOTE | 2018-05-11 12:38 | Diagnostic Imaging Report ---
INDICATION: Line placement. TECHNIQUE: Single-view chest at 12:12 p.m. CORRELATION STUDY: 05/11/2018. FINDINGS: Combination of likely loculated effusion along with consolidation of the right mid and lower lung field persisting. Overall, generally stable. Infiltrate and effusion of the left lung base persisting, may be slightly increased. Heart size remains enlarged and vasculature is prominent. Right-sided central line is present. Tip projects over the expected location of the low SVC, stable to perhaps slightly advanced from prior study. IMPRESSION: 1. Combination of effusion along with consolidation of both lung bases, overall generally stable to perhaps slightly increased on the left. 2. A right upper extremity central line tip projects over the low SVC, generally stable. Dictated by: Dictated on workstation # [id number]
--- NOTE | 2018-05-11 15:04 | Progress Note-Cardiology ---
Cardiology SOAP Progress Note Subjective: Notes shortness of breath and dry cough No cp or palp or syncope Gen malaise Objective: I&O/Vital Signs 05/11/18 05/11/18 05/11/18 05/11/18 04:00 04:00 04:00 05:00 Temp 97.9 Pulse 93 89 Resp 27 23 B/P (MAP) 138/115 (123) 147/80 (102) Pulse Ox 97 99 100 O2 Delivery Nasal Cannula Nasal Cannula Nasal Cannula O2 Flow Rate 2.00 2.00 2.00 05/11/18 05/11/18 05/11/18 05/11/18 06:00 06:22 07:00 07:00 Pulse 89 83 82 Resp 27 20 B/P (MAP) 167/88 (114) 164/111 (128) Pulse Ox 100 97 99 O2 Delivery Nasal Cannula Nasal Cannula Nasal Cannula O2 Flow Rate 2.00 2.00 2.00 05/11/18 05/11/18 05/11/18 05/11/18 08:00 08:00 08:00 09:00 Temp 98.2 Pulse 88 90 Resp 27 B/P (MAP) 164/82 (109) 163/88 (113) Pulse Ox 99 98 99 O2 Delivery Nasal Cannula Nasal Cannula Nasal Cannula O2 Flow Rate 2.00 2.00 2.00 05/11/18 05/11/18 05/11/18 10:00 11:00 11:32 Temp 99.4 Pulse 93 106 Resp 24 B/P (MAP) 177/98 (124) 177/97 (123) Pulse Ox 99 90 91 O2 Delivery Nasal Cannula Nasal Cannula Nasal Cannula O2 Flow Rate 2.00 2.00 3.00 05/11/18 00:00 Intake Total 1100 ml Output Total 520 ml Balance 580 ml Weight (Pounds): 242 Weight (Ounces): 6.0 Weight (Calculated Kilograms): 109.863427 Constitutional: AAO x 3, well-developed, well-nourished Respiratory: No accessory muscle use, No respiratory distress; other (fair bilat air entry; prolonged exp; scattered rhonchi over large damián ways) Cardiovascular: regular rate-rhythm; No JVD; S1 and S2 Gastrointestional: No tender; soft; No guarding, No rebound; audible bowel sounds Genital/Rectal: other (Urinary catheter to DD; clear, yellow urine) Extremities: no lower extremity edema bilateral Neurologic/Psychiatric: other (appropriately responsive; moves all limbs equally) Skin: normal color, warm/dry; No ulcerations Results/Procedures: Labs Laboratory Tests 05/10/18 21:03: Glucometer 316H 05/11/18 03:55: White Blood Count 19.4H, Red Blood Count 3.57L, Hemoglobin 10.7L, Hematocrit 34L , Mean Corpuscular Volume 94, Mean Corpuscular Hemoglobin 30, Mean Corpuscular Hemoglobin Concent 32, Red Cell Distribution Width 14.9H, Platelet Count 221, Mean Platelet Volume 9.8, Neutrophils (%) (Auto) 93H, Lymphocytes (%) (Auto) 3L , Monocytes (%) (Auto) 4, Eosinophils (%) (Auto) 0, Basophils (%) (Auto) 0, Neutrophils # (Auto) 18.0H, Lymphocytes # (Auto) 0.6L, Monocytes # (Auto) 0.8, Eosinophils # (Auto) 0.0, Basophils # (Auto) 0.0, Sodium Level 146H, Potassium Level 5.5H, Chloride Level 117H, Carbon Dioxide Level 20L, Anion Gap 9, Blood Urea Nitrogen 55H, Creatinine 1.98H, Estimat Glomerular Filtration Rate 34, BUN/ Creatinine Ratio 28, Glucose Level 225H, Calcium Level 7.9L, Phosphorus Level 3.5, Magnesium Level 2.4 05/11/18 08:22: Vancomycin Level Trough 14.4 05/11/18 11:00: Glucometer 251H, Stool Occult Blood Immunoassay NEGATIVE 05/11/18 12:10: Sodium Level 146H, Potassium Level 5.3H, Chloride Level 116H, Carbon Dioxide Level 20L, Anion Gap 10, Blood Urea Nitrogen 51H, Creatinine 1.77H, Estimat Glomerular Filtration Rate 39, BUN/Creatinine Ratio 29, Glucose Level 221H, Calcium Level 7.9L Microbiology 05/07/18 Blood Culture - Preliminary, Resulted No growth 05/09/18 MRSA Screen - Final, Complete MRSA not isolated Laboratory Tests 05/10/18 04:10 05/11/18 03:55 05/11/18 12:10 A/P: Assessment: Ac resp failure, improved. He's now off mech vent Sinus bradycardia - likely due to metabolic abnormalities and/or dexmedetomidine during mech vent, now resolved Pneumonia with sepsis- management per Medical services Hypotension secondary to sepsis - BP improved H/o renal cell carcinoma - post left nephrectomy in 2006 at [facility] Metastatic lung cancer - receiving chemo (last tx on 04-23-18) - management per Oncology services (Dr. Mcneil) Acute on chronic renal failure, acute component of renal failure is improving. K at top end of normal to minimally elevated Plan: * Continue to monitor labs * Prognosis guarded * I spoke with him and answered CV-related questions Clinical Quality Measures Smoking Cessation Counseling: Counseling-Symptomatic: 3-10 Minutes Discussed Options Including: Nicotine Patch KANG PEREZ MD FACP FAC CCDS May 11, 2018 15:04
[2018-05-11] MEDS: inSUlin DETERMIR 1 UNIT/0.01 ML (LEVEMIR) CHARGE PER UNIT SQ SCH (20:43)
[2018-05-12] MEDS: PANTOPRAZOLE 40 MG (PROTONIX) VIAL IV SCH (00:26)
[2018-05-12] MEDS: PIPERACILLIN/TAZO 4.5 GM/NS 100 ML IV SCH ×6 (00:26→16:34)
[2018-05-12] MEDS: methylPREDNISolone 40 MG/ML (Solu-MEDROL) VIAL IV SCH ×5 (00:26→23:47)
[2018-05-12 00:30] VITALS: BP 157/76
[2018-05-12] MEDS: morphine INJ 4 MG/ML 1 ML (VIAL/SYRINGE) IVP PRN (00:42)
[2018-05-12] MEDS: aCETylcysteine 20% (MUCOMYST) 30ML SOLN VIAL INH SCH ×4 (03:45→21:34)
[2018-05-12] MEDS: RT-ALBUTEROL/IPRATROPIUM 3 ML (DUONEB) VIAL INH SCH ×6 (03:45→21:34)
[2018-05-12 04:30] VITALS: BP 140/70
[2018-05-12 05:12] LABS: BASOPHILS % (AUTO) 0 % (0-10); EOSINOPHILS % (AUTO) 0 % (0-10); HEMATOCRIT 34 % (40-54); HEMOGLOBIN 10.6 G/DL (13.3-17.7); LYMPHOCYTES # (AUTO) 0.7 X 10^3 (1.0-4.0); LYMPHOCYTES % (AUTO) 4 % (12-44); MEAN CORPUSCULAR HEMOGLOBIN 30 PG (25-34); MEAN CORPUSCULAR HGB CONC 31 G/DL (32-36); MEAN CORPUSCULAR VOLUME 96 FL (80-99); MEAN PLATELET VOLUME 9.8 FL (7.4-10.4); MONOCYTES # (AUTO) 0.8 X 10^3 (0.0-1.0); MONOCYTES % (AUTO) 5 % (0-12); NEUTROPHILS # (AUTO) 15.4 X 10^3 (1.8-7.8); NEUTROPHILS % (AUTO) 91 % (42-75); PLATELET COUNT 220 10^3/uL (130-400); RED BLOOD COUNT 3.56 10^6/uL (4.35-5.85); WHITE BLOOD COUNT 16.9 10^3/uL (4.3-11.0)
[2018-05-12 05:31] LABS: CALCIUM 8.1 MG/DL (8.5-10.1); CREATININE SERUM 1.5 MG/DL (0.60-1.30); POTASSIUM 5.9 MMOL/L (3.6-5.0)
[2018-05-12] MEDS: inSUlin ASPART (NovoLOG) 1 UNIT/0.01 ML (CHARGE PER UNIT) SC SCH ×4 (06:46→20:45)
[2018-05-12 08:00] VITALS: BP 139/66
--- NOTE | 2018-05-12 08:49 | Pulmonary Progress Note ---
CHRIS CRUZ MED STUDENT 05/12/18 0849: Subjective Date Seen by a Provider: May 12, 2018 Time Seen by a Provider: 08:45 Subjective/Events-last exam Patient reports he is feeling good today. Throat soreness has resolved, describes no SOB, cough, or CP. Sepsis Event Evaluation Height, Weight, BMI Height: 6'4.00" Weight: 262lbs. 2.0oz. 118.572788bb; 25.7 BMI Method:Stated Exam Exam Vital Signs Date Time Temp Pulse Resp B/P (MAP) Pulse Ox O2 Delivery O2 Flow Rate FiO2 05/12/18 08:00 92 Nasal Cannula 2.00 05/12/18 08:00 98.5 98 20 139/66 (90) 92 Nasal Cannula 2.00 05/12/18 07:47 75 Nasal Cannula 2.00 05/12/18 04:30 96.7 77 18 140/70 (93) 91 Nasal Cannula 2.00 05/12/18 03:45 98 Nasal Cannula 2.00 05/12/18 00:30 97.5 73 22 157/76 (103) 92 Nasal Cannula 2.00 05/11/18 23:45 92 Nasal Cannula 2.00 05/11/18 20:31 97.6 75 16 152/70 (97) 91 Nasal Cannula 2.00 05/11/18 19:51 87 Nasal Cannula 2.00 05/11/18 19:45 91 Nasal Cannula 2.00 05/11/18 16:05 97.9 77 20 136/64 (88) 91 Nasal Cannula 2.00 05/11/18 15:15 92 Nasal Cannula 2.00 05/11/18 11:32 91 Nasal Cannula 3.00 05/11/18 11:00 99.4 106 24 177/97 (123) 90 Nasal Cannula 2.00 05/11/18 10:00 93 26 177/98 (124) 99 Nasal Cannula 2.00 05/11/18 09:00 90 27 163/88 (113) 99 Nasal Cannula 2.00 I & O 05/12/18 07:00 Intake Total 2340 ml Output Total 2450 ml Balance -110 ml Height & Weight Height: 6'4.00" Weight: 262lbs. 2.0oz. 118.910939jz; 25.7 BMI Method:Stated General Appearance: No Apparent Distress, WD/WN, Other (intubated and sedated) HEENT: PERRL/EOMI, Moist Mucous Membranes Neck: Non Tender, Supple Respiratory: Chest Non Tender, No Accessory Muscle Use, Other (on 2L nasal canula) Cardiovascular: Regular Rate, Rhythm, No Murmur Capillary Refill: Less Than 3 Seconds Gastrointestinal: normal bowel sounds, non tender, soft, no organomegaly, no pulsatile mass Extremity: No Calf Tenderness, No Pedal Edema Neurologic/Psychiatric: Alert, Oriented x3, Normal Mood/Affect Skin: Normal Color, Warm/Dry Results Lab Laboratory Tests 05/11/18 03:55 05/11/18 12:10 05/12/18 05:04 Assessment/Plan Assessment/Plan Acute respiratory distress/failure -sats 92 today on 2L via nasal canula Pneumonia with severe sepsis -Continue zosyn -Garcia cultures pending Bilateral effusions/consolidation on CXR -IS -ambulate with assistance Bradycardia, Hypotension -Resolved -Cardiology consulted Anemia -Monitor -Occult stool negative -GI ppx 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 Mcneil is following -Last Chemo 04/23 -nephrectomy 2017 Metabolic acidosis with renal failure -Monitor -IVF Hyperkalemia -kayexalate ANETA HAWKINS DO 05/12/18 1552: Exam Exam General Appearance: No Apparent Distress, WD/WN HEENT: PERRL/EOMI, Moist Mucous Membranes Neck: Non Tender, Supple Capillary Refill: Less Than 3 Seconds Gastrointestinal: normal bowel sounds, non tender, soft, no organomegaly Skin: Normal Color, Warm/Dry Assessment/Plan Assessment/Plan Acute respiratory distress/failure -sats 92 today on 2L via nasal canula Pneumonia with severe sepsis -Continue zosyn -Garcia cultures pending Bilateral effusions/consolidation on CXR -IS -ambulate with assistance Bradycardia, Hypotension -Resolved -Cardiology consulted Anemia -Monitor -Occult stool negative -GI ppx 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 Mcneil is following -Last Chemo 04/23 -nephrectomy 2017 Metabolic acidosis with renal failure -Monitor -IVF Hyperkalemia -kayexalate -Recheck labs CHRIS CRUZ STUDENT May 12, 2018 08:49 ANETA HAWKINS DO May 12, 2018 15:52
[2018-05-12] MEDS: GABAPENTIN 300 MG (NEURONTIN) CAP PO SCH ×3 (09:02→20:45)
--- NOTE | 2018-05-12 09:14 | Progress Note-Cardiology ---
Cardiology SOAP Progress Note Subjective: Sitting up in bed. Family at the bedside. Feels SOB is improving. C/O occ non -productive cough. No c/o palpitations, syncope or near syncope. Objective: I&O/Vital Signs 05/12/18 05/12/18 05/13/18 05/13/18 20:00 21:35 00:12 02:23 Temp 98.4 Pulse 77 Resp 18 B/P (MAP) 139/64 (89) Pulse Ox 90 95 91 O2 Delivery Nasal Cannula Nasal Cannula Nasal Cannula Nasal Cannula O2 Flow Rate 4.00 4.00 4.00 4.00 05/13/18 05/13/18 04:19 07:34 Temp 97.9 Pulse 71 Resp 18 B/P (MAP) 137/71 (93) Pulse Ox 94 90 O2 Delivery Nasal Cannula Nasal Cannula O2 Flow Rate 4.00 4.00 05/13/18 00:00 Intake Total 1920 ml Output Total 1500 ml Balance 420 ml Weight (Pounds): 262 Weight (Ounces): 2.0 Weight (Calculated Kilograms): 118.972182 Constitutional: AAO x 3, well-developed, well-nourished Respiratory: No accessory muscle use, No respiratory distress; other (fair bilat air entry; prolonged exp; scattered rhonchi over large air ways) Cardiovascular: regular rate-rhythm; No JVD; S1 and S2 Gastrointestional: No tender; soft; No guarding, No rebound; audible bowel sounds Genital/Rectal: other (Urinary catheter to DD; clear, yellow urine) Extremities: no lower extremity edema bilateral Neurologic/Psychiatric: other (appropriately responsive; moves all limbs equally) Skin: normal color, warm/dry; No ulcerations Results/Procedures: Labs Laboratory Tests 05/12/18 11:31: Glucometer 304H 05/12/18 16:00: Sodium Level 143, Potassium Level 5.9H, Chloride Level 112H, Carbon Dioxide Level 25, Anion Gap 6, Blood Urea Nitrogen 39H, Creatinine 1.54H, Estimat Glomerular Filtration Rate 46, BUN/Creatinine Ratio 25, Glucose Level 278H, Calcium Level 8.1L, B-Type Natriuretic Peptide 819.5H 05/12/18 16:14: Glucometer 250H 05/12/18 20:14: Glucometer 267H 05/13/18 05:46: Glucometer 265H 05/13/18 06:05: White Blood Count 16.8H, Red Blood Count 3.60L, Hemoglobin 10.6L, Hematocrit 35L , Mean Corpuscular Volume 97, Mean Corpuscular Hemoglobin 29, Mean Corpuscular Hemoglobin Concent 30L, Red Cell Distribution Width 15.2H, Platelet Count 226, Mean Platelet Volume 10.4, Neutrophils (%) (Auto) 91H, Lymphocytes (%) (Auto) 5L , Monocytes (%) (Auto) 5, Eosinophils (%) (Auto) 0, Basophils (%) (Auto) 0, Neutrophils # (Auto) 15.3H, Lymphocytes # (Auto) 0.8L, Monocytes # (Auto) 0.8, Eosinophils # (Auto) 0.0, Basophils # (Auto) 0.0, Neutrophils % (Manual) 90, Lymphocytes % (Manual) 8, Monocytes % (Manual) 2, Sodium Level 143, Potassium Level 5.7H, Chloride Level 110H, Carbon Dioxide Level 26, Anion Gap 7, Blood Urea Nitrogen 36H, Creatinine 1.40H, Estimat Glomerular Filtration Rate 51, BUN/ Creatinine Ratio 26, Glucose Level 250H, Calcium Level 8.4L Microbiology 05/07/18 Blood Culture - Preliminary, Resulted No growth 05/09/18 MRSA Screen - Final, Complete MRSA not isolated A/P: Assessment: Ac resp failure, improved. He's now off mech vent Sinus bradycardia - likely due to metabolic abnormalities and/or dexmedetomidine during mech vent, now resolved Pneumonia with sepsis- management per Medical services Hypotension secondary to sepsis - BP improved H/o renal cell carcinoma - post left nephrectomy in 2006 at [facility] Metastatic lung cancer - receiving chemo (last tx on 04-23-18) - management per Oncology services (Dr. Mcneil) Acute on chronic renal failure, acute component of renal failure is improving Hyperkalemia Plan: * Continue to monitor labs * Worsening hyperkalemia - give Kayexalate * Prognosis guarded Clinical Quality Measures Smoking Cessation Counseling: Counseling-Symptomatic: 3-10 Minutes Discussed Options Including: Nicotine Patch NOHEMY GRANADOS May 12, 2018 09:14
[2018-05-12] MEDS ORDERED: SOD POLYSTERENE 15 GM/60 ML (KAYEXALATE) UNIT DOSE PO NR (09:15)
[2018-05-12] MEDS: PANTOPRAZOLE 40 MG (PROTONIX) TAB PO SCH ×2 (09:49→20:45)
--- NOTE | 2018-05-12 10:36 | Oncology Progress Note ---
Subjective Date Seen by a Provider: May 12, 2018 Time Seen by a Provider: 10:26 Subjective/Events-last exam Pt is off vent. Doing much better. Wanting to go home On steroid taper. No fever O2 sat 91% on 4L NC. 75% on 2L NC Data Review Labs Laboratory Tests 05/12/18 05:04 Laboratory Tests 05/09/18 17:07: Glucometer 258H 05/09/18 21:24: Glucometer 289H 05/10/18 04:10: White Blood Count 14.0H, Red Blood Count 3.20L, Hemoglobin 9.7L, Hematocrit 29L , Neutrophils (%) (Auto) 89H, Lymphocytes (%) (Auto) 5L, Neutrophils # (Auto) 12.5H, Lymphocytes # (Auto) 0.7L, Arterial Blood Partial Pressure O2 52L, Arterial Blood HCO3 22L, Arterial Blood Oxygen Saturation 88L, Arterial Blood Base Excess -3.0L, Chloride Level 116H, Carbon Dioxide Level 19L, Blood Urea Nitrogen 48H, Creatinine 1.73H, Glucose Level 251H, Calcium Level 7.3L 05/10/18 13:11: Glucometer 175H 05/10/18 21:03: Glucometer 316H 05/11/18 03:55: White Blood Count 19.4H, Red Blood Count 3.57L, Hemoglobin 10.7L, Hematocrit 34L , Red Cell Distribution Width 14.9H, Neutrophils (%) (Auto) 93H, Lymphocytes (% ) (Auto) 3L, Neutrophils # (Auto) 18.0H, Lymphocytes # (Auto) 0.6L, Sodium Level 146H, Potassium Level 5.5H, Chloride Level 117H, Carbon Dioxide Level 20L , Blood Urea Nitrogen 55H, Creatinine 1.98H, Glucose Level 225H, Calcium Level 7.9L 05/11/18 08:22: 05/11/18 11:00: Glucometer 251H 05/11/18 12:10: Sodium Level 146H, Potassium Level 5.3H, Chloride Level 116H, Carbon Dioxide Level 20L, Blood Urea Nitrogen 51H, Creatinine 1.77H, Glucose Level 221H, Calcium Level 7.9L 05/11/18 16:08: Glucometer 233H 05/11/18 20:34: Glucometer 298H 05/12/18 05:04: Potassium Level 5.9H, Chloride Level 113H, Blood Urea Nitrogen 40H, Creatinine 1.50H, Glucose Level 242H, Calcium Level 8.1L, White Blood Count 16.9H, Red Blood Count 3.56L, Hemoglobin 10.6L, Hematocrit 34L, Mean Corpuscular Hemoglobin Concent 31L, Red Cell Distribution Width 15.0H, Neutrophils (%) (Auto ) 91H, Lymphocytes (%) (Auto) 4L, Neutrophils # (Auto) 15.4H, Lymphocytes # ( Auto) 0.7L 05/12/18 11:31: Glucometer 304H Physical Exam Vital Signs Vital Signs - First Documented 05/07/18 23:00 FiO2 70 Capillary Refill : Less Than 3 Seconds Height, Weight, BMI Height: 6'4.00" Weight: 262lbs. 2.0oz. 118.875596lc; 25.7 BMI Method:Stated General Appearance: No Apparent Distress HEENT: PERRL/EOMI Neck: Non Tender, Supple Respiratory: No Accessory Muscle Use, No Respiratory Distress Cardiovascular: Regular Rate, Rhythm Neurologic/Psychiatric: Alert, Oriented x3 Impression & Plan Impression & Plan 1. Respiratory failure and pneumonia , improved, Off vent. Dr Scanlon and Dr Araya to decide the antibiotics and hospital course. Pt can be discharged from Hem/Onc point of view. 2. ? Pneumonitis from Opdivo immunotherapy. Change IV to PO Prednisone 20mg a day over 2 days and then 10 mg over 2 days then off. 3. 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 Pathology approved lung metastasis 04/29/17. Started Opdivo treatment 09-28-2017. CT scan 03-20-18 showed improvement. Last cycle #11 was given 04/23/2018. Because of #1 and #2 above, Pt needs rest and treatment break at least for a month. See me in the mid Jun 2018. Please call cancer center for f/u appointment. 4. Hypotensive, sepsis. PICC line placement for IVF. 5. Type II diabetes on insulin 6. Acute and on chronic renal insufficiency, improving Clinical Quality Measures DVT/VTE Risk/Contraindication: Risk Factor Score Per Nursin RFS Level Per Nursing on Admit: 4+=Very High Smoking Cessation Counseling: Counseling-Symptomatic: 3-10 Minutes Discussed Options Including: Nicotine Patch ARABELLA BLILY MD May 12, 2018 10:36
--- NOTE | 2018-05-12 10:41 | Physical Therapy Evaluation ---
PT Evaluation-General Medical Diagnosis Admission Date May 07, 2018 at 18:06 Medical Diagnosis: pneumonia Onset Date: May 07, 2018 Therapy Diagnosis Therapy Diagnosis: generalized weakness Height/Weight Height (Feet): 6 Height (Inches): 4.00 Weight (Pounds): 262 Weight (Ounces): 2.0 Precautions Precautions/Isolations: Fall Prevention, Standard Precautions, Pressure Ulcer Weight Bear Status Right Lower Extremity: Right Full Weight Bearing Left Lower Extremity: Left Full Weight Bearing Referral Physician: Quiana Reason for Referral: Evaluation/Treatment Medical History Pertinent Medical History: Arthritis, DM, Smoking Additional Medical History lung and kidney cancer Current History ED from clinic with SOB and SAO2 70% on RA Reviewed History: Yes Social History Home: Single Level Current Living Status: Spouse Entry Into Home: Stairs With Railing PT Steps Into Home: 6 Prior/Core FIM Prior Level of Function Therapy Code Descriptions/Definitions Functional [place] Measure: 0=Not Assessed/NA 4=Minimal Assistance 1=Total Assistance 5=Supervision or Setup 2=Maximal Assistance 6=Modified [place] 3=Moderate Assistance 7=Complete [place] Therapy Quality Codes: 6 Independent with activity with or without an assistive device 5 Patient requires set up or clean up by helper. Patient completes activity by themselves 4 Supervision or touching assist (CGA). [place] provide cues , steadying assist 3 The helper provides less than half the effort to complete the activity 2 The helper provides more than half the effort to complete the activity 1 Dependent. The helper does all the effort to complete an activity 7 Patient refused to complete or attempt activity 9 The patient did not perform the activity before the current illness or injury 88 Not attempted due to Medical conditions or safety concerns Functional Abilities and Goals: Independent: Patient completed the activities by him/herself, with or without an assistive device, with no assistance from a helper. Needed Some Help: Patient needed partial assistance from another person to complete activities. Dependent: A helper completed the activities for the patient. Unknown: Not Applicable: Bed Mobility: 7 Transfers (B,C,W/C) (FIM): 7 Gait: 7 Stairs: 7 Indoor Mobility (Ambulation): Independent Stairs: Independent Prior Devices Use: None PT Evaluation-Current Subjective Patient agrees to PT. No c/o at this time. Pain Numeric Pain Scale: 0-No Pain Location: No Pain Reported Objective Patient Orientation: Normal For Age Problem Solving: Fair Attachments: Oxygen (4L), IV ROM/Strength ROM Lower Extremities bilateral LE WFL (noted left LE edema) Strength Lower Extremities 4/5 grossly bilaterally Integumentary/Posture Integumentary refer to nursing notes Bowel Incontinence: No Bladder Incontinence: No Posture slight trunk flexed posture Neuromuscular (Tone, Coordination, Reflexes) grossly intact Sensory Vision: Wears Glasses Hearing: Functional Sensation Right Lower Extremit: Impaired Sensation Left Lower Extremity: Impaired Transfers Therapy Code Descriptions/Definitions Functional [place] Measure: 0=Not Assessed/NA 4=Minimal Assistance 1=Total Assistance 5=Supervision or Setup 2=Maximal Assistance 6=Modified [place] 3=Moderate Assistance 7=Complete [place] Transfers (B, C, W/C) (FIM): 5 Scootin Rollin Supine to/from Sit: 6 Sit to/from Stand: 5 Gait Mode of Locomotion: Walk Anticipated Mode of Locomotion: Walk Gait (FIM): 5 Distance (FIM): 3=150 ft Distance: 275' Gait Level of Assist: 5 Gait Assistive Device: FWW Comments/Gait Description slow, steady gait sequence Balance Sitting Static: Normal Sitting Dynamic: Normal Standing Static: Normal Standing Dynamic: Normal Assessment/Needs 62 y.o. male, will benefit from short term skilled PT to address functional strength and mobility to improve current LOF and to safely return to home with family at maximum LOF. Patient and family are current smokers. Rehab Potential: Guarded PT Longterm Goals Longterm Goals PT Longterm Goals Time Frame: May 21, 2018 Transfers (B,C,W/C) (FIM): 6 Gait (FIM): 6 Gait distance (FIM): 3=150 ft Distance: 300' Gait Level of Assist: 6 Gait Assistive Device: None, FWW Stairs (FIM): 5 # of Steps: 8 Stairs Level Of Assist: 5 household level PT Plan Problem List Problem List: Activity Tolerance, Safety, Gait Treatment/Plan Treatment Plan: Continue Plan of Care Treatment Plan: Bed Mobility, Education, Functional Activity Deshawn, Functional Strength, Gait, Safety, Therapeutic Exercise, Transfers Treatment Duration: May 21, 2018 Frequency: 6 times per week Estimated Hrs Per Day: .25 hour per day Patient and/or Family Agrees t: Yes Discharge Recommendations Therapy D/C Recommendations: Home w/ Family Support Time/GCodes Time In: 1000 Time Out: 1016 Total Billed Treatment Time: 16 Total Billed Treatment 1 visit EVModC 16 min G Codes Necessary: SUE Porras PT May 12, 2018 10:41
--- NOTE | 2018-05-12 11:27 | Progress Note-Hospitalist ---
Progress Note Progress Notes/Assess & Plan Date Seen 05/12/18 Time Seen by Provider: 11:20 Assessment & Plan The patient is a 62-year-old white male known to me for many years. He was hospitalized at this time with pneumonia and respiratory failure and ultimately was placed on the ventilator. A recent CT scan from 03/21 is reviewed. At that time the report suggested that the previously known lung metastases or either reduced in size or inapparent. The left renal fossa also appeared to be clear of tumor at this time. The patient reports that he has been able to walk in the hallway. He has felt quite weak. Physical exam: He is alert and oriented. Lungs show rather distant breath sounds. CV is regular without murmur. Abdomen is soft. Impression: Pneumonia/hypoxia. 2.renal cell carcinoma with metastases. 3.type II diabetes mellitus. Plan: Continue pulmonary toilet. 2.PT for strengthening and ambulation. 3.nasal cannula oxygen. BOONE ABAD MD May 12, 2018 11:27
[2018-05-12] MEDS: CATHETER FLUSH 10 ML SYR IV PRN (11:51)
[2018-05-12 13:00] VITALS: BP 138/64
--- NOTE | 2018-05-12 15:45 | Progress Note-Cardiology ---
Cardiology SOAP Progress Note Subjective: Feels better today Less short of breath No cp or palp or syncope Objective: I&O/Vital Signs 05/12/18 05/12/18 05/12/18 05/12/18 03:45 04:30 07:47 08:00 Temp 96.7 98.5 Pulse 77 98 Resp 18 20 B/P (MAP) 140/70 (93) 139/66 (90) Pulse Ox 98 91 75 92 O2 Delivery Nasal Cannula Nasal Cannula Nasal Cannula Nasal Cannula O2 Flow Rate 2.00 2.00 2.00 2.00 05/12/18 05/12/18 05/12/18 08:00 11:20 13:00 Temp 97.2 Pulse 68 Resp 18 B/P (MAP) 138/64 (88) Pulse Ox 92 92 92 O2 Delivery Nasal Cannula Nasal Cannula Nasal Cannula O2 Flow Rate 4.00 4.00 4.00 05/12/18 00:00 Intake Total 1260 ml Output Total 1250 ml Balance 10 ml Weight (Pounds): 262 Weight (Ounces): 2.0 Weight (Calculated Kilograms): 118.622407 Constitutional: AAO x 3, well-developed, well-nourished Respiratory: No accessory muscle use, No respiratory distress; other (fair bilat air entry; prolonged exp; scattered rhonchi over large air ways) Cardiovascular: regular rate-rhythm; No JVD; S1 and S2 Gastrointestional: No tender; soft; No guarding, No rebound; audible bowel sounds Genital/Rectal: other (Urinary catheter to DD; clear, yellow urine) Extremities: no lower extremity edema bilateral Neurologic/Psychiatric: other (appropriately responsive; moves all limbs equally) Skin: normal color, warm/dry; No ulcerations Results/Procedures: Labs Laboratory Tests 05/11/18 16:08: Glucometer 233H 05/11/18 20:34: Glucometer 298H 05/12/18 05:04: White Blood Count 16.9H, Red Blood Count 3.56L, Hemoglobin 10.6L, Hematocrit 34L , Mean Corpuscular Volume 96, Mean Corpuscular Hemoglobin 30, Mean Corpuscular Hemoglobin Concent 31L, Red Cell Distribution Width 15.0H, Platelet Count 220, Mean Platelet Volume 9.8, Neutrophils (%) (Auto) 91H, Lymphocytes (%) (Auto) 4L , Monocytes (%) (Auto) 5, Eosinophils (%) (Auto) 0, Basophils (%) (Auto) 0, Neutrophils # (Auto) 15.4H, Lymphocytes # (Auto) 0.7L, Monocytes # (Auto) 0.8, Eosinophils # (Auto) 0.0, Basophils # (Auto) 0.0, Sodium Level 143, Potassium Level 5.9H, Chloride Level 113H, Carbon Dioxide Level 23, Anion Gap 7, Blood Urea Nitrogen 40H, Creatinine 1.50H, Estimat Glomerular Filtration Rate 47, BUN/ Creatinine Ratio 27, Glucose Level 242H, Calcium Level 8.1L 05/12/18 11:31: Glucometer 304H Microbiology 05/07/18 Blood Culture - Preliminary, Resulted No growth 05/09/18 MRSA Screen - Final, Complete MRSA not isolated Laboratory Tests 05/11/18 03:55 05/11/18 12:10 05/12/18 05:04 A/P: Assessment: Ac resp failure, improved. He's now off mech vent Sinus bradycardia - likely due to metabolic abnormalities and/or dexmedetomidine during mech vent, now resolved Pneumonia with sepsis- management per Medical services Hypotension secondary to sepsis - BP improved H/o renal cell carcinoma - post left nephrectomy in 2006 at [facility] Metastatic lung cancer - receiving chemo (last tx on 04-23-18) - management per Oncology services (Dr. Mcneil) Acute on chronic renal failure, acute component of renal failure is improving Hyperkalemia Plan: * Continue to monitor labs * Worsening hyperkalemia - give Kayexalate * I spoke with him and his fam and answered questions Clinical Quality Measures Smoking Cessation Counseling: Counseling-Symptomatic: 3-10 Minutes Discussed Options Including: Nicotine Patch KANG PEREZ MD FACP FAC CCDS May 12, 2018 15:45
[2018-05-12 15:55] VITALS: BP 161/77
[2018-05-12 16:24] LABS: CALCIUM 8.1 MG/DL (8.5-10.1); CREATININE SERUM 1.54 MG/DL (0.60-1.30); POTASSIUM 5.9 MMOL/L (3.6-5.0)
[2018-05-12 19:45] VITALS: BP 131/60
[2018-05-12] MEDS: inSUlin DETERMIR 1 UNIT/0.01 ML (LEVEMIR) CHARGE PER UNIT SQ SCH (20:44)
[2018-05-13 00:12] VITALS: BP 139/64
[2018-05-13] MEDS: PIPERACILLIN/TAZO 4.5 GM/NS 100 ML IV SCH ×6 (00:53→17:39)
[2018-05-13] MEDS: RT-ALBUTEROL/IPRATROPIUM 3 ML (DUONEB) VIAL INH SCH ×6 (02:23→22:30)
[2018-05-13 04:19] VITALS: BP 137/71
[2018-05-13] MEDS: methylPREDNISolone 40 MG/ML (Solu-MEDROL) VIAL IV SCH ×2 (05:57→12:31)
[2018-05-13] MEDS: inSUlin ASPART (NovoLOG) 1 UNIT/0.01 ML (CHARGE PER UNIT) SC SCH ×4 (05:57→21:04)
[2018-05-13 06:16] LABS: BASOPHILS % (AUTO) 0 % (0-10); EOSINOPHILS % (AUTO) 0 % (0-10); HEMATOCRIT 35 % (40-54); HEMOGLOBIN 10.6 G/DL (13.3-17.7); LYMPHOCYTES # (AUTO) 0.8 X 10^3 (1.0-4.0); LYMPHOCYTES % (AUTO) 5 % (12-44); MEAN CORPUSCULAR HEMOGLOBIN 29 PG (25-34); MEAN CORPUSCULAR HGB CONC 30 G/DL (32-36); MEAN CORPUSCULAR VOLUME 97 FL (80-99); MEAN PLATELET VOLUME 10.4 FL (7.4-10.4); MONOCYTES # (AUTO) 0.8 X 10^3 (0.0-1.0); MONOCYTES % (AUTO) 5 % (0-12); NEUTROPHILS # (AUTO) 15.3 X 10^3 (1.8-7.8); PLATELET COUNT 226 10^3/uL (130-400); RED CELL DISTRIBUTION WIDTH 15.2 % (10.0-14.5); WHITE BLOOD COUNT 16.8 10^3/uL (4.3-11.0)
[2018-05-13 06:38] LABS: CALCIUM 8.4 MG/DL (8.5-10.1); CREATININE SERUM 1.4 MG/DL (0.60-1.30); POTASSIUM 5.7 MMOL/L (3.6-5.0)
[2018-05-13 06:55] LABS: LYMPHOCYTES % (MANUAL) 8 %; MONOCYTES % (MANUAL) 2 %; NEUTROPHILS % (MANUAL) 90 %
[2018-05-13] MEDS: aCETylcysteine 20% (MUCOMYST) 30ML SOLN VIAL INH SCH ×3 (07:32→19:14)
[2018-05-13 08:00] VITALS: BP 162/75
[2018-05-13] MEDS: GABAPENTIN 300 MG (NEURONTIN) CAP PO SCH ×3 (08:13→21:04)
[2018-05-13] MEDS: PANTOPRAZOLE 40 MG (PROTONIX) TAB PO SCH ×2 (08:13→21:04)
--- NOTE | 2018-05-13 09:08 | Pulmonary Progress Note ---
CHRIS CRUZ MED STUDENT 05/13/18 0908: Subjective Date Seen by a Provider: May 13, 2018 Time Seen by a Provider: 09:07 Subjective/Events-last exam Patient reports he is feeling better. Gets out of bed only with assistance and says this is difficult as his knees hurt. He has a nonproductive cough. Sepsis Event Evaluation Height, Weight, BMI Height: 6'4.00" Weight: 264lbs. 4.4oz. 119.752090iw; 25.7 BMI Method:Stated Focused Exam Respiratory: Chest Non Tender, No Accessory Muscle Use, Wheezing Cardiovascular: Regular Rate, Rhythm, No Murmur Skin: normal color, warm/dry Exam Exam Vital Signs Date Time Temp Pulse Resp B/P (MAP) Pulse Ox O2 Delivery O2 Flow Rate FiO2 05/13/18 07:34 90 Nasal Cannula 4.00 05/13/18 04:19 97.9 71 18 137/71 (93) 94 Nasal Cannula 4.00 05/13/18 02:23 91 Nasal Cannula 4.00 05/13/18 00:12 98.4 77 18 139/64 (89) 95 Nasal Cannula 4.00 05/12/18 21:35 90 Nasal Cannula 4.00 05/12/18 20:00 Nasal Cannula 4.00 05/12/18 19:45 97.4 90 20 131/60 (83) 92 Nasal Cannula 4.00 05/12/18 18:28 93 Nasal Cannula 4.00 05/12/18 15:55 97.9 80 16 161/77 (105) 97 Nasal Cannula 4.00 05/12/18 15:48 92 Nasal Cannula 4.00 05/12/18 13:00 97.2 68 18 138/64 (88) 92 Nasal Cannula 4.00 05/12/18 11:20 92 Nasal Cannula 4.00 I & O 05/13/18 07:00 Intake Total 2470 ml Output Total 2200 ml Balance 270 ml Height & Weight Height: 6'4.00" Weight: 264lbs. 4.4oz. 119.457781uc; 25.7 BMI Method:Stated General Appearance: No Apparent Distress, WD/WN HEENT: PERRL/EOMI, Moist Mucous Membranes Neck: Non Tender, Supple Respiratory: Chest Non Tender, No Accessory Muscle Use, Wheezing, Other ( requiring 4L O2 via nasal canula) Cardiovascular: Regular Rate, Rhythm, No Murmur Capillary Refill: Less Than 3 Seconds Gastrointestinal: normal bowel sounds, non tender, soft Extremity: No Calf Tenderness, No Pedal Edema Neurologic/Psychiatric: Alert, Oriented x3 Skin: Normal Color, Warm/Dry Results Lab Laboratory Tests 05/11/18 12:10 05/12/18 05:04 05/12/18 16:00 05/13/18 06:05 Assessment/Plan Assessment/Plan Acute respiratory distress/failure -sats 90 today on 4L via nasal canula -continue oxygen Pneumonia with severe sepsis -Continue zosyn -Garcia cultures grew yeast -persistent cough, some wheezing Bilateral effusions/consolidation on CXR -IS -ambulate with assistance Bradycardia, Hypotension -Resolved -Cardiology consulted Anemia -Monitor -Occult stool negative -GI ppx 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 Mcneil is following -Last Chemo 04/23 -nephrectomy 2016 Metabolic acidosis with renal failure -Improving, continue to Monitor Hyperkalemia -kayexalate ANETA HAWKINS DO 05/13/18 1315: Subjective Time Seen by a Provider: 13:10 Subjective/Events-last exam Pt feels better. No complications noted. nonproductive cough. Exam Exam General Appearance: No Apparent Distress, WD/WN HEENT: PERRL/EOMI, Moist Mucous Membranes Neck: Non Tender, Supple Respiratory: Chest Non Tender, No Accessory Muscle Use, Wheezing Cardiovascular: Regular Rate, Rhythm Capillary Refill: Less Than 3 Seconds Gastrointestinal: normal bowel sounds, non tender, soft Neurologic/Psychiatric: Alert, Oriented x3 Skin: Normal Color, Warm/Dry Assessment/Plan Assessment/Plan Acute respiratory distress/failure -sats 90 today on 4L via nasal canula -continue oxygen Pneumonia with severe sepsis -Continue zosyn -Garcia cultures grew yeast -persistent cough, some wheezing Bilateral effusions/consolidation on CXR -BNP is elevated. Lasix started. -IS -ambulate with assistance Bradycardia, Hypotension -Resolved -Cardiology consulted Anemia -Monitor -Occult stool negative -GI ppx 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 Mcneil is following -Last Chemo 04/23 -nephrectomy 2017 Metabolic acidosis with renal failure -Improving, continue to Monitor Hyperkalemia -kayexalate lasix CHRIS CRUZ MED STUDENT May 13, 2018 09:08 ANETA HAWKINS DO May 13, 2018 13:15
--- NOTE | 2018-05-13 10:00 | Physical Therapy Daily Note ---
PT Daily Note-Current Subjective Patient agrees to PT. Pain Numeric Pain Scale: 0-No Pain Location: No Pain Reported Mental Status Patient Orientation: Normal For Age Attachments: Oxygen, IV Transfers Therapy Code Descriptions/Definitions Functional [place] Measure: 0=Not Assessed/NA 4=Minimal Assistance 1=Total Assistance 5=Supervision or Setup 2=Maximal Assistance 6=Modified [place] 3=Moderate Assistance 7=Complete [place] Therapy Quality Codes: 6 Independent with activity with or without an assistive device 5 Patient requires set up or clean up by helper. Patient completes activity by themselves 4 Supervision or touching assist (CGA). [place] provide cues , steadying assist 3 The helper provides less than half the effort to complete the activity 2 The helper provides more than half the effort to complete the activity 1 Dependent. The helper does all the effort to complete an activity 7 Patient refused to complete or attempt activity 9 The patient did not perform the activity before the current illness or injury 88 Not attempted due to Medical conditions or safety concerns Transfers (B, C, W/C) (FIM): 6 Scootin Rollin Supine to/from Sit: 6 Sit to/from Stand: 6 Bed to/from Chair: 6 Weight Bearing Right Lower Extremity: Right Full Weight Bearing Left Lower Extremity: Left Full Weight Bearing Gait Training Gait (FIM): 6 Distance (FIM): 3=150 ft Distance: 300' Gait Level of Assist: 6 Gait Assistive Device: FWW steady, functional gait sequence Assessment Patient is up in recliner with needs met. Patient progressing with treatment plan. PT Finished Cloth Examiner Goals Finished Cloth Examiner Goals PT Senior Care Goals Time Frame: May 21, 2018 Transfers (B,C,W/C) (FIM): 6 Gait (FIM): 6 Gait distance (FIM): 3=150 ft Distance: 300' Gait Level of Assist: 6 Gait Assistive Device: None, FWW Stairs (FIM): 5 # of Steps: 8 Stairs Level Of Assist: 5 PT Plan Treatment/Plan Treatment Plan: Continue Plan of Care Treatment Plan: Bed Mobility, Education, Functional Activity Deshawn, Functional Strength, Gait, Safety, Therapeutic Exercise, Transfers Treatment Duration: May 21, 2018 Frequency: 6 times per week Estimated Hrs Per Day: .25 hour per day Patient and/or Family Agrees t: Yes Time/GCodes Time In: 921 Time Out: 930 Total Billed Treatment Time: 9 Total Billed Treatment 1 visit FA 9 min SUE CONTRERAS PT May 13, 2018 10:00
--- NOTE | 2018-05-13 10:32 | Progress Note-Cardiology ---
Cardiology SOAP Progress Note Subjective: Sitting up in a chair at the bedside. Feels breathing is unchanged from yesterday. No c/o CP, palpitations, syncope or near syncope. C/O bilat LE swelling. Objective: I&O/Vital Signs 05/13/18 05/13/18 05/13/18 05/13/18 07:34 08:00 08:15 12:00 Temp 98.7 97.5 Pulse 91 77 Resp 22 B/P (MAP) 162/75 (104) 162/75 (104) Pulse Ox 90 93 93 O2 Delivery Nasal Cannula Nasal Cannula Nasal Cannula Nasal Cannula O2 Flow Rate 4.00 4.00 4.00 4.00 05/13/18 05/13/18 05/13/18 12:48 15:01 16:35 Temp 98.3 Pulse 73 Resp 18 B/P (MAP) 172/81 (111) Pulse Ox 93 88 95 O2 Delivery Nasal Cannula Nasal Cannula Nasal Cannula O2 Flow Rate 4.00 3.00 4.00 05/13/18 00:00 Intake Total 1920 ml Output Total 1500 ml Balance 420 ml Weight (Pounds): 264 Weight (Ounces): 4.4 Weight (Calculated Kilograms): 119.755553 Constitutional: AAO x 3, well-developed, well-nourished Respiratory: No accessory muscle use, No respiratory distress; other (fair bilat air entry; prolonged exp; scattered rhonchi over large air ways) Cardiovascular: regular rate-rhythm; No JVD; S1 and S2 Gastrointestional: No tender; soft; No guarding, No rebound; audible bowel sounds Extremities: other (mod bilat LE edema) Neurologic/Psychiatric: other (appropriately responsive; moves all limbs equally) Skin: normal color, warm/dry Results/Procedures: Labs Laboratory Tests 05/12/18 20:14: Glucometer 267H 05/13/18 05:46: Glucometer 265H 05/13/18 06:05: White Blood Count 16.8H, Red Blood Count 3.60L, Hemoglobin 10.6L, Hematocrit 35L , Mean Corpuscular Volume 97, Mean Corpuscular Hemoglobin 29, Mean Corpuscular Hemoglobin Concent 30L, Red Cell Distribution Width 15.2H, Platelet Count 226, Mean Platelet Volume 10.4, Neutrophils (%) (Auto) 91H, Lymphocytes (%) (Auto) 5L , Monocytes (%) (Auto) 5, Eosinophils (%) (Auto) 0, Basophils (%) (Auto) 0, Neutrophils # (Auto) 15.3H, Lymphocytes # (Auto) 0.8L, Monocytes # (Auto) 0.8, Eosinophils # (Auto) 0.0, Basophils # (Auto) 0.0, Neutrophils % (Manual) 90, Lymphocytes % (Manual) 8, Monocytes % (Manual) 2, Sodium Level 143, Potassium Level 5.7H, Chloride Level 110H, Carbon Dioxide Level 26, Anion Gap 7, Blood Urea Nitrogen 36H, Creatinine 1.40H, Estimat Glomerular Filtration Rate 51, BUN/ Creatinine Ratio 26, Glucose Level 250H, Calcium Level 8.4L 05/13/18 10:29: Glucometer 517*H 05/13/18 14:30: Albumin 3.0L 05/13/18 16:01: Glucometer 449*H Microbiology 05/07/18 Blood Culture - Final, Complete No growth 05/09/18 MRSA Screen - Final, Complete MRSA not isolated A/P: Assessment: Ac resp failure, improved Sinus bradycardia - likely due to metabolic abnormalities and/or dexmedetomidine during mech vent, now resolved Pneumonia with sepsis- management per Medical services Hypotension secondary to sepsis - BP improved Hyperkalemia, persistent Acute on chronic renal failure H/o renal cell carcinoma - post left nephrectomy in [address] [facility] Metastatic lung cancer - receiving chemo (last tx on 04-23-18) - management per Oncology services (Dr. Mcneil) Plan: * Continue to monitor labs * Hyperkalemia persistent, but slightly better * Bilat LE swelling - give dose of Lasix today Physician Assessment Physician Assessment Shortness of breath persistent. Malaise persistent. No cp or palp or syncope Lungs: fair air entry, prolonged exp phase Cor: reg Ext: mild to mod pitting edema A&R * As documented in our note above that I updated (italics) * Continue diuretics as needed and as tolerated * Kayexelate today * Monitor labs Clinical Quality Measures Smoking Cessation Counseling: Counseling-Symptomatic: 3-10 Minutes Discussed Options Including: Nicotine Patch NOHEMY GRANADOS MIXING MACHINE TENDER CORK GASKET May 13, 2018 10:31 KANG PEREZ MD [facility] May 13, 2018 17:33
[2018-05-13] MEDS ORDERED: FUROSEMIDE 40 MG/4 ML INJ (LASIX) IVP NR ×2 (10:45→14:15)
[2018-05-13 12:00] VITALS: BP 162/75
--- NOTE | 2018-05-13 14:10 | Progress Note-Hospitalist ---
Progress Note Progress Notes/Assess & Plan Date Seen 05/13/18 Time Seen by Provider: 14:07 Assessment & Plan The patient reports that he walked to the end of his hallway and back to his room with some difficulty. He observed that his legs are so swollen he has trouble bending at the knees. He has something of a cough but is not troubled by shortness of breath at this time. Physical exam: He is pleasant and alert. Lungs show scattered rhonchi bilaterally. CV is regular. Extremities show considerable edema to the hips. The calves are quite edematous and firm. His belly is large but also firm. He is not clear whether there seems to be fluid in the tummy. His arms have some edema but he states that seems to be lessening. Impression: Metastatic renal cell carcinoma. 2.lung metastases and pneumonia/ respiratory failure. 3.anasarca. Plan: Serum albumin. 2.IV Lasix. BOONE ABAD MD May 13, 2018 14:10
[2018-05-13] MEDS ORDERED: SOD POLYSTERENE 15 GM/60 ML (KAYEXALATE) UNIT DOSE PO NR (15:00)
--- NOTE | 2018-05-13 16:14 | Oncology Progress Note ---
Subjective Date Seen by a Provider: May 13, 2018 Time Seen by a Provider: 16:11 Subjective/Events-last exam Pt continues improving. Working on to get off the swelling of both legs. Wants to home if possible Still on 4L O2 Sat 90% Data Review Labs Laboratory Tests 05/13/18 06:05 Laboratory Tests 05/10/18 21:03: Glucometer 316H 05/11/18 03:55: White Blood Count 19.4H, Red Blood Count 3.57L, Hemoglobin 10.7L, Hematocrit 34L , Red Cell Distribution Width 14.9H, Neutrophils (%) (Auto) 93H, Lymphocytes (% ) (Auto) 3L, Neutrophils # (Auto) 18.0H, Lymphocytes # (Auto) 0.6L, Sodium Level 146H, Potassium Level 5.5H, Chloride Level 117H, Carbon Dioxide Level 20L , Blood Urea Nitrogen 55H, Creatinine 1.98H, Glucose Level 225H, Calcium Level 7.9L 05/11/18 08:22: 05/11/18 11:00: Glucometer 251H 05/11/18 12:10: Sodium Level 146H, Potassium Level 5.3H, Chloride Level 116H, Carbon Dioxide Level 20L, Blood Urea Nitrogen 51H, Creatinine 1.77H, Glucose Level 221H, Calcium Level 7.9L 05/11/18 16:08: Glucometer 233H 05/11/18 20:34: Glucometer 298H 05/12/18 05:04: Potassium Level 5.9H, Chloride Level 113H, Blood Urea Nitrogen 40H, Creatinine 1.50H, Glucose Level 242H, Calcium Level 8.1L, White Blood Count 16.9H, Red Blood Count 3.56L, Hemoglobin 10.6L, Hematocrit 34L, Mean Corpuscular Hemoglobin Concent 31L, Red Cell Distribution Width 15.0H, Neutrophils (%) (Auto ) 91H, Lymphocytes (%) (Auto) 4L, Neutrophils # (Auto) 15.4H, Lymphocytes # ( Auto) 0.7L 05/12/18 11:31: Glucometer 304H 05/12/18 16:00: Potassium Level 5.9H, Chloride Level 112H, Blood Urea Nitrogen 39H, Creatinine 1.54H, Glucose Level 278H, Calcium Level 8.1L, B-Type Natriuretic Peptide 819.5H 05/12/18 16:14: Glucometer 250H 05/12/18 20:14: Glucometer 267H 05/13/18 05:46: Glucometer 265H 05/13/18 06:05: White Blood Count 16.8H, Red Blood Count 3.60L, Hemoglobin 10.6L, Hematocrit 35L , Mean Corpuscular Hemoglobin Concent 30L, Red Cell Distribution Width 15.2H, Neutrophils (%) (Auto) 91H, Lymphocytes (%) (Auto) 5L, Neutrophils # (Auto) 15.3H, Lymphocytes # (Auto) 0.8L, Potassium Level 5.7H, Chloride Level 110H, Blood Urea Nitrogen 36H, Creatinine 1.40H, Glucose Level 250H, Calcium Level 8.4L 05/13/18 10:29: Glucometer 517*H 05/13/18 14:30: Albumin 3.0L 05/13/18 16:01: Glucometer 449*H Physical Exam Vital Signs Vital Signs - First Documented 05/07/18 23:00 FiO2 70 Capillary Refill : Less Than 3 Seconds Height, Weight, BMI Height: 6'4.00" Weight: 264lbs. 4.4oz. 119.025843ik; 25.7 BMI Method:Stated General Appearance: No Apparent Distress HEENT: PERRL/EOMI Neck: Non Tender, Supple Respiratory: No Accessory Muscle Use, No Respiratory Distress, Crackles Cardiovascular: Regular Rate, Rhythm Extremity: Pedal Edema, Swelling Neurologic/Psychiatric: Alert, Oriented x3 Impression & Plan Impression & Plan 1. Respiratory failure and pneumonia , improved, Off vent. Dr Scanlon and Dr Araya to decide the antibiotics and hospital course. Pt can be discharged from Hem/Onc point of view. 2. ? Pneumonitis from Opdivo immunotherapy. Change IV to PO Prednisone 20mg a day over 2 days and then 10 mg over 2 days then off. Stop Prednisone on discharge home. 3. 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 Pathology approved lung metastasis 04/29/17. Started Opdivo treatment 09-28-2017. CT scan 03-20-18 showed improvement. Last cycle #11 was given 04/23/2018. Because of #1 and #2 above, Pt needs rest and treatment break at least for a month. I will see him at cancer center on 06/16/18 2pm. I gave him f/u appointment card today. 4. Hypotensive, sepsis. PICC line placement for IVF. 5. Type II diabetes on insulin 6. Acute and on chronic renal insufficiency, improving Clinical Quality Measures DVT/VTE Risk/Contraindication: Risk Factor Score Per Nursin RFS Level Per Nursing on Admit: 4+=Very High Smoking Cessation Counseling: Counseling-Symptomatic: 3-10 Minutes Discussed Options Including: Nicotine Patch ARABELLA BILLY MD May 13, 2018 16:14
[2018-05-13 16:35] VITALS: BP 172/81
[2018-05-13 19:45] VITALS: BP 154/68
[2018-05-13] MEDS: inSUlin DETERMIR 1 UNIT/0.01 ML (LEVEMIR) CHARGE PER UNIT SQ SCH (21:05)
[2018-05-14 00:31] VITALS: BP 143/63
[2018-05-14] MEDS: PIPERACILLIN/TAZO 4.5 GM/NS 100 ML IV SCH ×6 (00:35→16:21)
[2018-05-14] MEDS: aCETylcysteine 20% (MUCOMYST) 30ML SOLN VIAL INH SCH ×5 (02:10→22:38)
[2018-05-14] MEDS: RT-ALBUTEROL/IPRATROPIUM 3 ML (DUONEB) VIAL INH SCH ×6 (02:10→22:38)
[2018-05-14 04:46] VITALS: BP 136/62
[2018-05-14] MEDS: inSUlin ASPART (NovoLOG) 1 UNIT/0.01 ML (CHARGE PER UNIT) SC SCH ×4 (06:04→21:28)
[2018-05-14] MEDS: predniSONE 20 MG TAB PO SCH (06:04)
[2018-05-14] MEDS: inSUlin DETERMIR 1 UNIT/0.01 ML (LEVEMIR) CHARGE PER UNIT SQ SCH ×2 (06:04→21:27)
[2018-05-14 06:17] LABS: BASOPHILS % (AUTO) 0 % (0-10); EOSINOPHILS # (AUTO) 0.1 10^3/uL (0.0-0.3); EOSINOPHILS % (AUTO) 1 % (0-10); HEMATOCRIT 35 % (40-54); HEMOGLOBIN 10.9 G/DL (13.3-17.7); LYMPHOCYTES # (AUTO) 1.5 X 10^3 (1.0-4.0); LYMPHOCYTES % (AUTO) 10 % (12-44); MEAN CORPUSCULAR HEMOGLOBIN 30 PG (25-34); MEAN CORPUSCULAR HGB CONC 31 G/DL (32-36); MEAN CORPUSCULAR VOLUME 96 FL (80-99); MEAN PLATELET VOLUME 9.8 FL (7.4-10.4); MONOCYTES # (AUTO) 0.9 X 10^3 (0.0-1.0); MONOCYTES % (AUTO) 6 % (0-12); NEUTROPHILS # (AUTO) 12.7 X 10^3 (1.8-7.8); NEUTROPHILS % (AUTO) 84 % (42-75); PLATELET COUNT 246 10^3/uL (130-400); RED BLOOD COUNT 3.66 10^6/uL (4.35-5.85); RED CELL DISTRIBUTION WIDTH 14.9 % (10.0-14.5); WHITE BLOOD COUNT 15.1 10^3/uL (4.3-11.0)
[2018-05-14 06:41] LABS: CALCIUM 8.4 MG/DL (8.5-10.1); CREATININE SERUM 1.46 MG/DL (0.60-1.30); POTASSIUM 4.5 MMOL/L (3.6-5.0)
--- NOTE | 2018-05-14 06:57 | Pulmonary Progress Note ---
CHRIS CRUZ MED STUDENT 05/14/18 0657: Subjective Date Seen by a Provider: May 14, 2018 Time Seen by a Provider: 06:53 Subjective/Events-last exam Patient is awake and alert this am. He reports he feels lots better today. No new symptoms, slept well. Sepsis Event Evaluation Height, Weight, BMI Height: 6'4.00" Weight: 260lbs. 0.4oz. 117.366085sq; 25.7 BMI Method:Stated Focused Exam Respiratory: Chest Non Tender, No Accessory Muscle Use, No Respiratory Distress , Wheezing Cardiovascular: Regular Rate, Rhythm, No Murmur Skin: normal color, warm/dry Exam Exam Vital Signs Date Time Temp Pulse Resp B/P (MAP) Pulse Ox O2 Delivery O2 Flow Rate FiO2 05/14/18 04:46 97.8 78 18 136/62 (86) 95 Nasal Cannula 4.00 05/14/18 02:11 96 Nasal Cannula 3.00 05/14/18 00:31 98.4 86 18 143/63 (89) 97 Nasal Cannula 4.00 05/13/18 22:31 98 Nasal Cannula 3.00 05/13/18 20:00 Nasal Cannula 4.00 05/13/18 19:45 98.6 84 20 154/68 (96) 94 Nasal Cannula 4.00 05/13/18 19:16 94 Nasal Cannula 3.00 05/13/18 16:35 98.3 73 18 172/81 (111) 95 Nasal Cannula 4.00 05/13/18 15:01 88 Nasal Cannula 3.00 05/13/18 12:48 93 Nasal Cannula 4.00 05/13/18 12:00 97.5 77 162/75 (104) 93 Nasal Cannula 4.00 05/13/18 08:15 Nasal Cannula 4.00 05/13/18 08:00 98.7 91 22 162/75 (104) 93 Nasal Cannula 4.00 05/13/18 07:34 90 Nasal Cannula 4.00 I & O 05/14/18 07:00 Intake Total 2620 ml Output Total 2300 ml Balance 320 ml Height & Weight Height: 6'4.00" Weight: 260lbs. 0.4oz. 117.975456pj; 25.7 BMI Method:Stated General Appearance: No Apparent Distress, WD/WN HEENT: PERRL/EOMI Neck: Non Tender, Supple Respiratory: Chest Non Tender, No Accessory Muscle Use, No Respiratory Distress , Wheezing Cardiovascular: Regular Rate, Rhythm, No Murmur Capillary Refill: Less Than 3 Seconds Gastrointestinal: normal bowel sounds, non tender, soft Extremity: Non Tender Neurologic/Psychiatric: Alert, Oriented x3 Skin: Normal Color, Warm/Dry Results Lab Laboratory Tests 05/12/18 16:00 05/13/18 06:05 05/14/18 06:10 Assessment/Plan Assessment/Plan Acute respiratory distress/failure -sats 95 today on 4L via nasal canula -continue oxygen Pneumonia with severe sepsis -Continue zosyn -persistent nonproductive cough, some wheezing Bilateral effusions/consolidation on CXR -Repeat CXR today Bradycardia, Hypotension -Resolved -Cardiology consulted Anemia -Monitor -Occult stool negative -GI ppx 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 Mcneil is following -Last Chemo 04/23 -nephrectomy 2017 Metabolic acidosis with renal failure -Improving, continue to Monitor Hyperkalemia, resolved ANETA HAWKINS DO 05/14/18 0906: Subjective Time Seen by a Provider: 09:04 Subjective/Events-last exam Pt feels improved. No complications noted. Exam Exam General Appearance: No Apparent Distress, WD/WN HEENT: PERRL/EOMI Neck: Non Tender, Supple Respiratory: Chest Non Tender, No Accessory Muscle Use, No Respiratory Distress Cardiovascular: Regular Rate, Rhythm Capillary Refill: Less Than 3 Seconds Gastrointestinal: normal bowel sounds, non tender, soft Neurologic/Psychiatric: Alert, Oriented x3 Skin: Normal Color, Warm/Dry Assessment/Plan Assessment/Plan Acute respiratory distress/failure -sats 95 today on 4L via nasal canula -continue oxygen -Repeat CXR Pneumonia with severe sepsis -Continue zosyn -persistent nonproductive cough, some wheezing Bilateral effusions/consolidation on CXR -Repeat CXR today Bradycardia, Hypotension -Resolved -Cardiology consulted Anemia -Monitor -Occult stool negative -GI ppx 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 Mcneil is following -Last Chemo 04/23 -nephrectomy 2017 Metabolic acidosis with renal failure -Improving, continue to Monitor Hyperkalemia, resolved CHRIS CRUZ MED STUDENT May 14, 2018 06:57 ANETA HAWKINS DO May 14, 2018 09:06
[2018-05-14] MEDS: GABAPENTIN 300 MG (NEURONTIN) CAP PO SCH ×3 (07:56→21:28)
[2018-05-14] MEDS: PANTOPRAZOLE 40 MG (PROTONIX) TAB PO SCH ×2 (07:56→21:28)
[2018-05-14 08:00] VITALS: BP 165/71
--- NOTE | 2018-05-14 08:43 | Diagnostic Imaging Report ---
INDICATION: Shortness of breath. COMPARISON: Comparison is made with the prior examination prior dated 05/11/2018. FINDINGS: There are bibasilar infiltrates and bilateral pleural effusions. There is no pneumothorax. Mediastinum is unremarkable. There is some cardiomegaly. IMPRESSION: Bibasilar pneumonia with bilateral pleural effusions. Dictated by: Dictated on workstation # [id number]
[2018-05-14 08:55] LABS: NEUTROPHILS % (AUTO) 90 % (42-75)
--- NOTE | 2018-05-14 09:35 | Progress Note-Hospitalist ---
COYLEFARHAN DO 05/14/18 0935: Subjective HPI/CC On Admission Date Seen by Provider: May 14, 2018 Pt is a 62yoCM with a PMH of metastatic renal cell carcinoma, IDDMII, HTN who presented to the ER from [facility] who presented to the ER for hypoxia. He is currently intubated and sedated and unable to provide any history. Reportedly he was found to have sats in the 60s in the [facility] and sent to the ER. He was started on oxygen and responded to 4-5lpm via OR and was able to maintain his sats. He was found ot have bilateral pneumonia and was admitted to the floor. He continued to decompensate with confusion and was found to be hypercarbic. He was transferred to the unit and trialed on BiPAP but was unable to tolerate it and eventually could not no longer protect his airway. ER physician responded for emergent intubation. This morning his ABG has improved but he is now hypotensive and receiving fluid bolus. 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 Doesn't wear oxygen at home but will likely need that at discharge Patient will need either swing bed or inpatient rehab since he lives alone Bowels are moving Eating and drinking well Checked meds and labs Review of Systems General: Fatigue Pulmonary: Cough Cardiovascular: Edema Objective Exam Vital Signs Vital Signs Date Time Temp Pulse Resp B/P (MAP) Pulse Ox O2 Delivery O2 Flow Rate FiO2 05/14/18 18:56 91 Vapotherm 10.00 36 05/14/18 16:45 98.1 89 20 142/86 (104) Capillary Refill : Less Than 3 Seconds General Appearance: No Apparent Distress, WD/WN, Chronically ill Respiratory: Chest Non Tender, Lungs Clear, No Accessory Muscle Use, No Respiratory Distress, Wheezing Cardiovascular: Regular Rate, Rhythm, No Edema, No Gallop, No JVD, No Murmur, Normal Peripheral Pulses Extremity: Normal Capillary Refill, Normal Inspection, Normal Range of Motion, Non Tender, No Calf Tenderness, Pedal Edema Neurologic/Psychiatric: Alert, Oriented x3, No Motor/Sensory Deficits, Normal Mood/Affect Results/Procedures Lab Laboratory Tests 05/14/18 06:10 Patient resulted labs reviewed. Imaging: Reviewed Imaging Report Assessment/Plan Assessment and Plan Assess & Plan/Chief Complaint Assessment: Anasarca s/p respiratory failure Renal cell CA w/mets to lung Plan: Lasix Ambulate Evaluate rehab Diagnosis/Problems Diagnosis/Problems (1) Pneumonia Status: Acute (2) Anasarca Status: Acute (3) Acute renal failure Status: Acute Qualifiers: Acute renal failure type: unspecified Qualified Codes: N17.9 - Acute kidney failure, unspecified (4) Cough Status: Acute (5) Insulin dependent diabetes mellitus Status: Chronic (6) 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 Qualifiers: Laterality: unspecified laterality Qualified Codes: C78.00 - Secondary malignant neoplasm of unspecified lung; C64.9 - Malignant neoplasm of unspecified kidney, except renal pelvis Clinical Quality Measures DVT/VTE Risk/Contraindication: Risk Factor Score Per Nursin RFS Level Per Nursing on Admit: 4+=Very High Smoking Cessation Counseling: Counseling-Symptomatic: 3-10 Minutes Discussed Options Including: Nicotine Patch MARIA ELENASARAH MED STUDENT 05/14/18 1016: Subjective HPI/CC On Admission Time Seen by Provider: 07:10 Subjective/Events-last exam Pt had no events overnight Currently on 4L NC Today his biggest bother is his b/l LLE edema, states the pain is a constant 5/ 10 Initiated lasix yesterday- he says that has helped a little Denies SOB, continues to have a cough Expiratory wheezing Ambulating well No bowel/bladder dysfunction AM labs showed decrease in WBC to 15.1, increase in Cr to 1.45 Focused Exam Respiratory: Chest Non Tender, Wheezing Cardiovascular: Regular Rate, Rhythm Objective Exam General Appearance: Chronically ill Respiratory: Wheezing Cardiovascular: Regular Rate, Rhythm Extremity: Pedal Edema, Swelling Neurologic/Psychiatric: Alert, Oriented x3 Skin: Normal Color Assessment/Plan Assessment and Plan Assess & Plan/Chief Complaint Assessment: Pneumonia Cough Respiratory failure B/l infiltrates on CXR Acute renal failure Anasarca Anemia Metastatic renal cell carcinoma to lung DM Plan: Continue O2 Continue lasix Continue IV abx Breathing tx q2h Ambulate Monitor labs Diagnosis/Problems Diagnosis/Problems (1) Pneumonia Status: Acute (2) Anasarca Status: Acute (3) Acute renal failure Status: Acute Qualifiers: Acute renal failure type: unspecified Qualified Codes: N17.9 - Acute kidney failure, unspecified (4) Cough Status: Acute (5) Insulin dependent diabetes mellitus Status: Chronic (6) 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 Qualifiers: Laterality: unspecified laterality Qualified Codes: C78.00 - Secondary malignant neoplasm of unspecified lung; C64.9 - Malignant neoplasm of unspecified kidney, except renal pelvis FARHAN COYLE DO May 14, 2018 09:35 SARAH ARREDONDO MED STUDENT May 14, 2018 10:16
--- NOTE | 2018-05-14 11:47 | Physical Therapy Daily Note ---
PT Daily Note-Current Subjective Pt. sitting up in bed, agrees to Rx. Willing to sit up after Rx. Pain Numeric Pain Scale: 0-No Pain Mental Status Patient Orientation: Normal For Age Transfers Therapy Code Descriptions/Definitions Functional [place] Measure: 0=Not Assessed/NA 4=Minimal Assistance 1=Total Assistance 5=Supervision or Setup 2=Maximal Assistance 6=Modified [place] 3=Moderate Assistance 7=Complete [place] Therapy Quality Codes: 6 Independent with activity with or without an assistive device 5 Patient requires set up or clean up by helper. Patient completes activity by themselves 4 Supervision or touching assist (CGA). Celoron provide cues , steadying assist 3 The helper provides less than half the effort to complete the activity 2 The helper provides more than half the effort to complete the activity 1 Dependent. The helper does all the effort to complete an activity 7 Patient refused to complete or attempt activity 9 The patient did not perform the activity before the current illness or injury 88 Not attempted due to Medical conditions or safety concerns indep sup to sit Weight Bearing Right Lower Extremity: Right Full Weight Bearing Left Lower Extremity: Left Full Weight Bearing Gait Training Gait (FIM): 5 Distance (FIM): 3=150 ft (300) Gait Level of Assist: 5 Gait Persons Needed: 1 Gait Assistive Device: FWW O2 $L and IV assist, instructed in safer gait pattern, pt. crosses over at turns Exercises Supine Ex: Bridging, Quad Set, Rolling, Hip abd/add Supine Reps: 10 Treatments bedding and gown changed, pt. incont of urine in bed and chair, all cleaned and changed as well as pts gown Assessment Current Status: Good Progress still much edema, SBA for safe gait PT Jail Goals Jail Goals PT Jail Goals Time Frame: May 21, 2018 Transfers (B,C,W/C) (FIM): 6 Gait (FIM): 6 Gait distance (FIM): 3=150 ft Distance: 300' Gait Level of Assist: 6 Gait Assistive Device: None, FWW Stairs (FIM): 5 # of Steps: 8 Stairs Level Of Assist: 5 PT Plan Treatment/Plan Treatment Plan: Continue Plan of Care Treatment Plan: Bed Mobility, Education, Functional Activity Deshawn, Functional Strength, Gait, Safety, Therapeutic Exercise, Transfers Treatment Duration: May 21, 2018 Frequency: 6 times per week Estimated Hrs Per Day: .25 hour per day Patient and/or Family Agrees t: Yes Safety Risks/Education Patient Education: Gait Training, Transfer Techniques, Correct Positioning, Disease Process, Safety Issues Teaching Recipient: Patient Teaching Methods: Demonstration, Discussion Response to Teaching: Verbalize Understanding, Return Demonstration, Reinforcement Needed Time/GCodes Time In: 1120 Time Out: 1145 Total Billed Treatment Time: 25 Total Billed Treatment 1,EX8, GT17 G Codes Necessary: MARY BETH Ricci SATELLITE DISH REPAIRER May 14, 2018 11:47
[2018-05-14 12:00] VITALS: BP 157/72
--- NOTE | 2018-05-14 13:27 | Progress Note-Cardiology ---
Cardiology SOAP Progress Note Subjective: Reports bilat leg swelling that he finds quite bothersome Has shortness of breath, but this continues to improve Denies cp or palp or syncope Reports a h/o L nephrectomy in [place] for clear cell CA Objective: I&O/Vital Signs 05/14/18 05/14/18 05/14/18 05/14/18 02:11 04:46 07:17 08:00 Temp 97.8 98.8 Pulse 78 92 Resp 18 B/P (MAP) 136/62 (86) 165/71 (102) Pulse Ox 96 95 92 90 O2 Delivery Nasal Cannula Nasal Cannula Nasal Cannula Nasal Cannula O2 Flow Rate 3.00 4.00 4.00 4.00 05/14/18 05/14/18 08:00 10:57 Pulse Ox 90 O2 Delivery Nasal Cannula Nasal Cannula O2 Flow Rate 4.00 4.00 05/14/18 00:00 Intake Total 2370 ml Output Total 1900 ml Balance 470 ml Weight (Pounds): 260 Weight (Ounces): 0.4 Weight (Calculated Kilograms): 117.183295 Constitutional: AAO x 3, well-developed, well-nourished Respiratory: No accessory muscle use, No respiratory distress; other (fair bilat air entry; prolonged exp; scattered rhonchi over large air ways) Cardiovascular: regular rate-rhythm; No JVD; S1 and S2 Gastrointestional: No tender; soft; No guarding, No rebound; audible bowel sounds Extremities: No clubbing, No cyanosis; significant edema Neurologic/Psychiatric: other (appropriately responsive; moves all limbs equally) Skin: normal color, warm/dry Results/Procedures: Labs Laboratory Tests 05/13/18 14:30: Albumin 3.0L 05/13/18 16:01: Glucometer 449*H 05/13/18 20:19: Glucometer 483*H 05/14/18 05:40: Glucometer 193H 05/14/18 06:10: White Blood Count 15.1H, Red Blood Count 3.66L, Hemoglobin 10.9L, Hematocrit 35L , Mean Corpuscular Volume 96, Mean Corpuscular Hemoglobin 30, Mean Corpuscular Hemoglobin Concent 31L, Red Cell Distribution Width 14.9H, Platelet Count 246, Mean Platelet Volume 9.8, Neutrophils (%) (Auto) 84H, Lymphocytes (%) (Auto) 10L , Monocytes (%) (Auto) 6, Eosinophils (%) (Auto) 1, Basophils (%) (Auto) 0, Neutrophils # (Auto) 12.7H, Lymphocytes # (Auto) 1.5, Monocytes # (Auto) 0.9, Eosinophils # (Auto) 0.1, Basophils # (Auto) 0.0, Sodium Level 144, Potassium Level 4.5, Chloride Level 107, Carbon Dioxide Level 30, Anion Gap 7, Blood Urea Nitrogen 30H, Creatinine 1.46H, Estimat Glomerular Filtration Rate 49, BUN/ Creatinine Ratio 21, Glucose Level 191H, Calcium Level 8.4L 05/14/18 11:22: Glucometer 229H Microbiology 05/07/18 Blood Culture - Final, Complete No growth 05/09/18 MRSA Screen - Final, Complete MRSA not isolated Laboratory Tests 05/12/18 16:00 05/13/18 06:05 05/14/18 06:10 A/P: Assessment: Ac resp failure, improved Sinus bradycardia - likely due to metabolic abnormalities and/or dexmedetomidine during mech vent, now resolved Pneumonia with sepsis- management per Medical services CKD 3 H/o renal cell carcinoma - post left nephrectomy in 2006 at [facility] Metastatic lung cancer - receiving chemo (last tx on 04-23-18) - management per Oncology services (Dr. Mcneil) Plan: * Continue to monitor labs * Hyperkalemia has resolved * Bilat LE swelling - give dose of Lasix today Clinical Quality Measures Smoking Cessation Counseling: Counseling-Symptomatic: 3-10 Minutes Discussed Options Including: Nicotine Patch KANG PEREZ MD FACP [facility] May 14, 2018 13:27
[2018-05-14] MEDS ORDERED: FUROSEMIDE 40 MG/4 ML INJ (LASIX) IVP NR (13:30)
[2018-05-14] MEDS: morphine INJ 4 MG/ML 1 ML (VIAL/SYRINGE) IVP PRN (14:58)
[2018-05-14] MEDS: oxyCODONE/APAP 7.5-325 MG (PERCOCET 7.5) TABLET PO PRN (16:20)
[2018-05-14 16:45] VITALS: BP 142/86
[2018-05-14 20:10] VITALS: BP 153/76
[2018-05-15 00:08] VITALS: BP 138/74
[2018-05-15] MEDS: PIPERACILLIN/TAZO 4.5 GM/NS 100 ML IV SCH ×6 (01:53→16:15)
[2018-05-15] MEDS: aCETylcysteine 20% (MUCOMYST) 30ML SOLN VIAL INH SCH ×6 (02:42→22:02)
[2018-05-15] MEDS: RT-ALBUTEROL/IPRATROPIUM 3 ML (DUONEB) VIAL INH SCH ×6 (02:42→22:02)
[2018-05-15 04:00] VITALS: BP 146/72
[2018-05-15 05:40] LABS: BASOPHILS % (AUTO) 0 % (0-10); EOSINOPHILS # (AUTO) 0.1 10^3/uL (0.0-0.3); EOSINOPHILS % (AUTO) 1 % (0-10); HEMATOCRIT 38 % (40-54); HEMOGLOBIN 11.8 G/DL (13.3-17.7); LYMPHOCYTES % (AUTO) 5 % (12-44); MEAN CORPUSCULAR HEMOGLOBIN 29 PG (25-34); MEAN CORPUSCULAR HGB CONC 31 G/DL (32-36); MEAN CORPUSCULAR VOLUME 95 FL (80-99); MEAN PLATELET VOLUME 9.6 FL (7.4-10.4); MONOCYTES # (AUTO) 1.1 X 10^3 (0.0-1.0); MONOCYTES % (AUTO) 5 % (0-12); NEUTROPHILS # (AUTO) 18.3 X 10^3 (1.8-7.8); NEUTROPHILS % (AUTO) 89 % (42-75); PLATELET COUNT 264 10^3/uL (130-400); RED BLOOD COUNT 4.01 10^6/uL (4.35-5.85); RED CELL DISTRIBUTION WIDTH 14.8 % (10.0-14.5); WHITE BLOOD COUNT 20.5 10^3/uL (4.3-11.0)
[2018-05-15 05:57] LABS: CALCIUM 9.1 MG/DL (8.5-10.1); CREATININE SERUM 1.29 MG/DL (0.60-1.30); POTASSIUM 3.4 MMOL/L (3.6-5.0)
[2018-05-15] MEDS: inSUlin ASPART (NovoLOG) 1 UNIT/0.01 ML (CHARGE PER UNIT) SC SCH ×4 (05:58→20:38)
[2018-05-15] MEDS: predniSONE 20 MG TAB PO SCH (06:04)
[2018-05-15 06:22] LABS: BAND NEUTROPHILS 1 %; BASOPHILS % (MANUAL) 0 %; EOSINOPHILS % (MANUAL) 0 %; LYMPHOCYTES % (MANUAL) 5 %; METAMYELOCYTES % 1 %; MONOCYTES % (MANUAL) 1 %; NEUTROPHILS % (MANUAL) 92 %
[2018-05-15 06:23] LABS: ANISOCYTOSIS SLIGHT; HYPOCHROMASIA MODERATE; STOMATOCYTES SLIGHT; TARGET CELLS SLIGHT
--- NOTE | 2018-05-15 07:27 | Pulmonary Progress Note ---
Subjective Date Seen by a Provider: May 15, 2018 Time Seen by a Provider: 07:22 Subjective/Events-last exam Yesterday afternoon patient had coarse lung sounds and felt his chest was a little congested. After increasing frequency of mucomyst and switching nasal canula to vapotherm he reports his condition is improved and he is feeling "about the same" this morning compared to yesterday. Sepsis Event Evaluation Height, Weight, BMI Height: 6'4.00" Weight: 260lbs. 0.4oz. 117.563510fc; 25.7 BMI Method:Stated Focused Exam Respiratory: Chest Non Tender, No Accessory Muscle Use, No Respiratory Distress , Rhonci (l side), Other (on vapotherm) Cardiovascular: Regular Rate, Rhythm, No Murmur Skin: normal color, warm/dry Exam Exam Vital Signs Date Time Temp Pulse Resp B/P (MAP) Pulse Ox O2 Delivery O2 Flow Rate FiO2 05/15/18 06:58 95 Vapotherm 13.00 40 05/15/18 02:42 88 Vapotherm 10.00 36 05/15/18 00:08 98.1 84 18 138/74 (95) 93 Nasal Cannula 4.00 05/14/18 22:38 91 Vapotherm 10.00 36 05/14/18 20:10 97.6 85 18 153/76 (101) 94 Vapotherm 36.00 10.00 05/14/18 18:56 91 Vapotherm 10.00 36 05/14/18 16:45 98.1 89 20 142/86 (104) 93 Nasal Cannula 4.00 05/14/18 14:51 90 Nasal Cannula 4.00 05/14/18 12:00 98.5 79 20 157/72 (100) 92 Nasal Cannula 4.00 05/14/18 10:57 90 Nasal Cannula 4.00 05/14/18 08:00 Nasal Cannula 4.00 05/14/18 08:00 98.8 92 18 165/71 (102) 90 Nasal Cannula 4.00 I & O 05/15/18 07:00 Intake Total 1860 ml Output Total 2650 ml Balance -790 ml Height & Weight Height: 6'4.00" Weight: 260lbs. 0.4oz. 117.317863rn; 25.7 BMI Method:Stated General Appearance: No Apparent Distress, WD/WN HEENT: PERRL/EOMI Neck: Non Tender, Supple Respiratory: Chest Non Tender, No Accessory Muscle Use, No Respiratory Distress , Rhonci (L side), Other (on vapotherm) Cardiovascular: Regular Rate, Rhythm, No Murmur Capillary Refill: Less Than 3 Seconds Gastrointestinal: normal bowel sounds, non tender, soft Extremity: Normal Capillary Refill, Normal Inspection, Normal Range of Motion, Non Tender, No Calf Tenderness, Pedal Edema Neurologic/Psychiatric: Alert, Oriented x3 Skin: Normal Color, Warm/Dry Results Lab Laboratory Tests 05/14/18 06:10 05/15/18 05:30 Assessment/Plan Assessment/Plan Acute respiratory distress/failure -sats 90 today on vapotherm 40% O2 with flow rate 13 -continue oxygen -Repeat CXR Increased feeling of congestion yesterday afternoon -increase frequency of mucomyst treatment -switch from nasal canula to vapotherm -subjective improvement in these symptoms since onset yesterday afternoon Pneumonia with severe sepsis -Continue zosyn -persistent nonproductive cough, some wheezing Bilateral effusions/consolidation on CXR -still present on todays CXR -continue Abx Bradycardia, Hypotension -Resolved -Cardiology consulted Anemia -Monitor -Occult stool negative -GI ppx 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 Mcneil is following -Last Chemo 04/23 -nephrectomy 2017 Metabolic acidosis with renal failure -Improving, continue to Monitor Hyperkalemia, resolved CHRIS CRUZ MED STUDENT May 15, 2018 07:26
[2018-05-15 08:00] VITALS: BP 157/71
[2018-05-15] MEDS: oxyCODONE/APAP 7.5-325 MG (PERCOCET 7.5) TABLET PO PRN ×2 (08:15→16:15)
[2018-05-15] MEDS: PANTOPRAZOLE 40 MG (PROTONIX) TAB PO SCH ×2 (08:15→20:37)
[2018-05-15] MEDS: GABAPENTIN 300 MG (NEURONTIN) CAP PO SCH ×3 (08:15→20:37)
[2018-05-15] MEDS: inSUlin DETERMIR 1 UNIT/0.01 ML (LEVEMIR) CHARGE PER UNIT SQ SCH ×2 (08:16→20:38)
--- NOTE | 2018-05-15 10:08 | Progress Note-Cardiology ---
Cardiology SOAP Progress Note Subjective: Sitting up in a recliner at the bedside. Feels LE swelling has improved. No c/ o CP or palpitations. Feels breathing is improving Objective: I&O/Vital Signs 05/14/18 05/15/18 05/15/18 05/15/18 22:38 00:08 02:42 04:00 Temp 98.1 98.4 Pulse 84 88 Resp 18 18 B/P (MAP) 138/74 (95) 146/72 (96) Pulse Ox 91 93 88 95 O2 Delivery Vapotherm Nasal Cannula Vapotherm Nasal Cannula O2 Flow Rate 10.00 4.00 10.00 4.00 FiO2 36 36 05/15/18 05/15/18 06:58 08:00 Temp 96.1 Pulse 65 Resp 16 B/P (MAP) 157/71 (99) Pulse Ox 95 92 O2 Delivery Vapotherm Nasal Cannula O2 Flow Rate 13.00 4.00 FiO2 40 05/15/18 00:00 Intake Total 1260 ml Output Total 2200 ml Balance -940 ml Weight (Pounds): 177 Weight (Ounces): 5.4 Weight (Calculated Kilograms): 80.985117 Constitutional: AAO x 3, well-developed, well-nourished Respiratory: No accessory muscle use, No respiratory distress; other (fair bilat air entry; prolonged exp; scattered rhonchi over large air ways) Cardiovascular: regular rate-rhythm; No JVD; S1 and S2 Gastrointestional: No tender; soft; No guarding, No rebound; audible bowel sounds Extremities: No clubbing, No cyanosis; significant edema Neurologic/Psychiatric: other (appropriately responsive; moves all limbs equally) Skin: normal color, warm/dry Results/Procedures: Labs Laboratory Tests 05/14/18 11:22: Glucometer 229H 05/14/18 16:15: Glucometer 375H 05/14/18 20:09: Glucometer 371H 05/15/18 05:16: Glucometer 42*L 05/15/18 05:30: White Blood Count 20.5H, Red Blood Count 4.01L, Hemoglobin 11.8L, Hematocrit 38L , Mean Corpuscular Volume 95, Mean Corpuscular Hemoglobin 29, Mean Corpuscular Hemoglobin Concent 31L, Red Cell Distribution Width 14.8H, Platelet Count 264, Mean Platelet Volume 9.6, Neutrophils (%) (Auto) 89H, Lymphocytes (%) (Auto) 5L , Monocytes (%) (Auto) 5, Eosinophils (%) (Auto) 1, Basophils (%) (Auto) 0, Neutrophils # (Auto) 18.3H, Lymphocytes # (Auto) 1.0, Monocytes # (Auto) 1.1H, Eosinophils # (Auto) 0.1, Basophils # (Auto) 0.0, Neutrophils % (Manual) 92, Lymphocytes % (Manual) 5, Monocytes % (Manual) 1, Eosinophils % (Manual) 0, Basophils % (Manual) 0, Metamyelocytes % 1, Band Neutrophils 1, Hypochromasia MODERATE, Basophilic Stippling SLIGHT, Anisocytosis SLIGHT, Target Cells SLIGHT , Stomatocytes SLIGHT, Sodium Level 145, Potassium Level 3.4L, Chloride Level 101, Carbon Dioxide Level 34H, Anion Gap 10, Blood Urea Nitrogen 28H, Creatinine 1.29, Estimat Glomerular Filtration Rate 56, BUN/Creatinine Ratio 22 , Glucose Level 35*L, Calcium Level 9.1 05/15/18 05:51: Glucometer 88 Microbiology 05/07/18 Blood Culture - Final, Complete No growth 05/09/18 MRSA Screen - Final, Complete MRSA not isolated Laboratory Tests 05/14/18 06:10 05/15/18 05:30 A/P: Assessment: Ac resp failure, improved Sinus bradycardia - likely due to metabolic abnormalities and/or dexmedetomidine during mech vent, now resolved Pneumonia with sepsis- management per Medical services CKD 3 H/o renal cell carcinoma - post left nephrectomy in 2006 at [facility] Metastatic lung cancer - receiving chemo (last tx on 04-23-18) - management per Oncology services (Dr. Mcneil) Plan: * Continue to monitor labs * Bilat LE swelling - give dose of Lasix today Clinical Quality Measures Smoking Cessation Counseling: Counseling-Symptomatic: 3-10 Minutes Discussed Options Including: Nicotine Patch NOHEMY GRANADOS May 15, 2018 10:08
[2018-05-15] MEDS ORDERED: FUROSEMIDE 40 MG/4 ML INJ (LASIX) IVP NR (10:14)
[2018-05-15] MEDS: CATHETER FLUSH 10 ML SYR IV PRN (11:01)
--- NOTE | 2018-05-15 11:03 | Diagnostic Imaging Report ---
INDICATION: Shortness of breath. EXAMINATION: Portable chest at 9:39 AM. FINDINGS: The right upper extremity PICC line tip projects over the SVC. There are bilateral pleural effusions with some volume loss at the lung bases. IMPRESSION: Bilateral basilar atelectasis and effusions, unchanged from the previous day. Dictated by: Dictated on workstation # [id number]
--- NOTE | 2018-05-15 11:11 | Physical Therapy Daily Note ---
PT Daily Note-Current Subjective Patient agrees to PT. Pain Numeric Pain Scale: 5-Moderate Pain Location: Right, Left Location Body Site: Knee Pain Description: Chronic Mental Status Patient Orientation: Normal For Age Attachments: Oxygen (vapotherm), IV Transfers Therapy Code Descriptions/Definitions Functional [place] Measure: 0=Not Assessed/NA 4=Minimal Assistance 1=Total Assistance 5=Supervision or Setup 2=Maximal Assistance 6=Modified [place] 3=Moderate Assistance 7=Complete [place] Therapy Quality Codes: 6 Independent with activity with or without an assistive device 5 Patient requires set up or clean up by helper. Patient completes activity by themselves 4 Supervision or touching assist (CGA). [place] provide cues , steadying assist 3 The helper provides less than half the effort to complete the activity 2 The helper provides more than half the effort to complete the activity 1 Dependent. The helper does all the effort to complete an activity 7 Patient refused to complete or attempt activity 9 The patient did not perform the activity before the current illness or injury 88 Not attempted due to Medical conditions or safety concerns Transfers (B, C, W/C) (FIM): 6 Scootin Sit to/from Stand: 6 Weight Bearing Right Lower Extremity: Right Full Weight Bearing Left Lower Extremity: Left Full Weight Bearing Exercises Standing: Marching, Mini squats Standing Reps: 20 (3 sets) Assessment Patient unable to ambulate due to on vapotherm. Dr. jasso for assessment. Patient instructed to perform sit to stand and standing exercises PRN. PT Snf Goals It Help Desk Analyst Goals PT Snf Goals Time Frame: May 21, 2018 Transfers (B,C,W/C) (FIM): 6 Gait (FIM): 6 Gait distance (FIM): 3=150 ft Distance: 300' Gait Level of Assist: 6 Gait Assistive Device: None, FWW Stairs (FIM): 5 # of Steps: 8 Stairs Level Of Assist: 5 PT Plan Treatment/Plan Treatment Plan: Continue Plan of Care Treatment Plan: Bed Mobility, Education, Functional Activity Deshawn, Functional Strength, Gait, Safety, Therapeutic Exercise, Transfers Treatment Duration: May 21, 2018 Frequency: 6 times per week Estimated Hrs Per Day: .25 hour per day Patient and/or Family Agrees t: Yes Time/GCodes Time In: 1030 Time Out: 1040 Total Billed Treatment Time: 10 Total Billed Treatment 1 visit EX 10 min SUE CONTRERAS PT May 15, 2018 11:11
--- NOTE | 2018-05-15 11:39 | Progress Note-Hospitalist ---
FARHAN COYLE 05/15/18 1139: Subjective HPI/CC On Admission Date Seen by Provider: May 15, 2018 Time Seen by Provider: 10:30 Pt is a 62yoCM with a PMH of metastatic renal cell carcinoma, IDDMII, HTN who presented to the ER from [facility] who presented to the ER for hypoxia. He is currently intubated and sedated and unable to provide any history. Reportedly he was found to have sats in the 60s in the [facility] and sent to the ER. He was started on oxygen and responded to 4-5lpm via NC and was able to maintain his sats. He was found ot have bilateral pneumonia and was admitted to the floor. He continued to decompensate with confusion and was found to be hypercarbic. He was transferred to the unit and trialed on BiPAP but was unable to tolerate it and eventually could not no longer protect his airway. ER physician responded for emergent intubation. This morning his ABG has improved but he is now hypotensive and receiving fluid bolus. Subjective/Events-last exam Patient doing well except edema Vapotherm placed due to hypoxia last night Labs noted with elevated wbc No pain except edema and scrotal edema Dr Ch consulted Objective Exam Vital Signs Vital Signs Date Time Temp Pulse Resp B/P (MAP) Pulse Ox O2 Delivery O2 Flow Rate FiO2 05/15/18 20:05 98.4 85 22 141/64 (89) 92 Vapotherm 36.00 10.00 05/15/18 19:27 35 Capillary Refill : Less Than 3 Seconds General Appearance: No Apparent Distress, WD/WN, Chronically ill Respiratory: Chest Non Tender, Normal Breath Sounds, No Accessory Muscle Use, No Respiratory Distress, Decreased Breath Sounds Cardiovascular: Regular Rate, Rhythm, No Gallop, No JVD, No Murmur, Normal Peripheral Pulses Extremity: Pedal Edema Neurologic/Psychiatric: Alert, Oriented x3, No Motor/Sensory Deficits, Normal Mood/Affect Results/Procedures Lab Laboratory Tests 05/15/18 05:30 Patient resulted labs reviewed. Imaging: Reviewed Imaging Report Assessment/Plan Assessment and Plan Assess & Plan/Chief Complaint Assessment: Anasarca s/p respiratory failure Renal cell CA w/mets to lung Plan: Lasix Ambulate Evaluate rehab Diagnosis/Problems Diagnosis/Problems (1) Pneumonia Status: Acute (2) Anasarca Status: Acute (3) Acute renal failure Status: Acute Qualifiers: Acute renal failure type: unspecified Qualified Codes: N17.9 - Acute kidney failure, unspecified (4) Cough Status: Acute (5) Insulin dependent diabetes mellitus Status: Chronic (6) 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 Qualifiers: Laterality: unspecified laterality Qualified Codes: C78.00 - Secondary malignant neoplasm of unspecified lung; C64.9 - Malignant neoplasm of unspecified kidney, except renal pelvis Clinical Quality Measures DVT/VTE Risk/Contraindication: Risk Factor Score Per Nursin RFS Level Per Nursing on Admit: 4+=Very High Smoking Cessation Counseling: Counseling-Symptomatic: 3-10 Minutes Discussed Options Including: Nicotine Patch ARIANEIA,SARAH MED STUDENT 05/15/18 1210: Subjective Subjective/Events-last exam Pt was switched to vapotherm last night- beginning to cough up yellow sputum Very uncomfortable due to severe b/l LE edema and scrotal swelling- beginning to have some problems with urination WBC up from yesterday - 20.1 Hypokalemic at 3.4 Creatinine improved to 1.29 Doing well with PT Focused Exam Respiratory: No Accessory Muscle Use, No Respiratory Distress Cardiovascular: Regular Rate, Rhythm, No Murmur Skin: normal color, cool (lower extremities) Objective Exam General Appearance: Chronically ill Neck: Full Range of Motion, Non Tender Respiratory: Chest Non Tender, No Accessory Muscle Use, No Respiratory Distress Cardiovascular: Regular Rate, Rhythm, No Murmur Extremity: Pedal Edema, Swelling Neurologic/Psychiatric: Alert, Oriented x3 Assessment/Plan Assessment and Plan Assess & Plan/Chief Complaint Assessment: Anasarca s/p respiratory failure Renal cell CA w/ mets to lung Plan: Re-evaluate Lasix dosing- increase if possible Wide [place] wraps to b/l LE Continue PT and ambulation Rehab evaluation Diagnosis/Problems Diagnosis/Problems (1) Anasarca Status: Acute (2) Cough Status: Acute (3) 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 Qualifiers: Laterality: unspecified laterality Qualified Codes: C78.00 - Secondary malignant neoplasm of unspecified lung; C64.9 - Malignant neoplasm of unspecified kidney, except renal pelvis (4) Insulin dependent diabetes mellitus Status: Chronic (5) Essential (primary) hypertension Status: Chronic FARHAN COYLE DO May 15, 2018 11:39 DIMATTIA,SARAH MED STUDENT May 15, 2018 12:10
[2018-05-15 12:00] VITALS: BP 150/90
[2018-05-15] MEDS: morphine INJ 4 MG/ML 1 ML (VIAL/SYRINGE) IVP PRN ×2 (12:26→20:37)
[2018-05-15 12:53] LABS: BILIRUBIN,URINE NEGATIVE (NEGATIVE); CLARITY,URINE CLEAR; COLOR,URINE YELLOW; GLUCOSE, URINE (UA) 3+ (NEGATIVE); KETONES,URINE NEGATIVE (NEGATIVE); LEUKOCYTE ESTERASE ,URINE 1+ (NEGATIVE); NITRITE,URINE NEGATIVE (NEGATIVE); PH,URINE 6.5 (5-9); PROTEIN,URINE NEGATIVE (NEGATIVE); UROBILINOGEN,URINE NORMAL (NORMAL)
[2018-05-15 13:02] LABS: BACTERIA,URINE NEGATIVE /HPF; RBC,URINE RARE /HPF; SQUAMOUS EPITHELIAL CELL,UR RARE /HPF; WBC,URINE RARE /HPF
[2018-05-15] MEDS: PHENAZOPYRIDINE 100 MG (PYRIDIUM) TABLET PO SCH ×2 (13:07→17:14)
[2018-05-15] MEDS: HYOSCYAMINE 0.375 MG (LEVBID) TAB PO SCH ×2 (13:12→20:37)
--- NOTE | 2018-05-15 14:10 | CONSULTATION REPORT ---
DATE OF SERVICE: 05/15/2018 ATTENDING PHYSICIAN: Danielle Tirado DO. SUMMARY: A 62-year-old white man with history of left renal cell carcinoma with metastasis, post radical nephrectomy at , was admitted with respiratory issues and pneumonia and respirator. He had a catheter for the past 5 days, was removed yesterday and the patient is complaining of pain in the suprapubic area especially with voiding as well as dysuria and some also swelling in his genitalia. PHYSICAL EXAMINATION: On physical exam, there is some edema of the penile skin part of fluid retention. There is edema in the lower extremities, more on the left side. ASSESSMENT: Cystitis was dysuria and genital edema. PLAN: 1. Urinalysis with possible culture. 2. Scrotal support and elevation of the genitalia and ice. 3. Continue Zosyn. 4. Pyridium 200 mg t.i.d. 5. 0.375 b.i.d. Thank you for letting me participate in the care of this patient. We will follow with you. Job ID: [id number] DocumentID: [id number] Dictated Date: 05/15/2018 13:09:57 Account Development Manager Date: 05/15/2018 14:10:15 Dictated By: MELVIN HALEY MD
[2018-05-15 20:05] VITALS: BP 141/64
[2018-05-15] MEDS: MICONAZOLE 2% POWDER (DESENEX AF) 90 GM TOP SCH (20:39)
[2018-05-15 23:59] VITALS: BP 123/56
[2018-05-16] MEDS: PIPERACILLIN/TAZO 4.5 GM/NS 100 ML IV SCH ×4 (00:45→08:57)
[2018-05-16] MEDS: RT-ALBUTEROL/IPRATROPIUM 3 ML (DUONEB) VIAL INH SCH ×6 (02:16→21:36)
[2018-05-16] MEDS: aCETylcysteine 20% (MUCOMYST) 30ML SOLN VIAL INH SCH ×6 (02:17→21:36)
[2018-05-16 04:00] VITALS: BP 135/60
[2018-05-16 05:11] LABS: BASOPHILS % (AUTO) 0 % (0-10); EOSINOPHILS # (AUTO) 0.3 10^3/uL (0.0-0.3); EOSINOPHILS % (AUTO) 2 % (0-10); HEMATOCRIT 32 % (40-54); HEMOGLOBIN 10.1 G/DL (13.3-17.7); LYMPHOCYTES # (AUTO) 1.1 X 10^3 (1.0-4.0); LYMPHOCYTES % (AUTO) 8 % (12-44); MEAN CORPUSCULAR HEMOGLOBIN 30 PG (25-34); MEAN CORPUSCULAR HGB CONC 32 G/DL (32-36); MEAN CORPUSCULAR VOLUME 95 FL (80-99); MEAN PLATELET VOLUME 9.7 FL (7.4-10.4); MONOCYTES # (AUTO) 0.7 X 10^3 (0.0-1.0); MONOCYTES % (AUTO) 5 % (0-12); NEUTROPHILS # (AUTO) 11.3 X 10^3 (1.8-7.8); NEUTROPHILS % (AUTO) 84 % (42-75); PLATELET COUNT 242 10^3/uL (130-400); RED BLOOD COUNT 3.37 10^6/uL (4.35-5.85); RED CELL DISTRIBUTION WIDTH 14.6 % (10.0-14.5); WHITE BLOOD COUNT 13.5 10^3/uL (4.3-11.0)
[2018-05-16 05:26] LABS: CALCIUM 8.3 MG/DL (8.5-10.1); CREATININE SERUM 1.4 MG/DL (0.60-1.30); POTASSIUM 3.6 MMOL/L (3.6-5.0)
[2018-05-16] MEDS: inSUlin ASPART (NovoLOG) 1 UNIT/0.01 ML (CHARGE PER UNIT) SC SCH ×4 (05:44→20:26)
[2018-05-16] MEDS: predniSONE 20 MG TAB PO SCH (06:13)
[2018-05-16] MEDS: inSUlin DETERMIR 1 UNIT/0.01 ML (LEVEMIR) CHARGE PER UNIT SQ SCH ×2 (06:14→20:26)
[2018-05-16 08:00] VITALS: BP 146/71
--- NOTE | 2018-05-16 08:46 | Progress Note-Hospitalist ---
Subjective HPI/CC On Admission Date Seen by Provider: May 16, 2018 Time Seen by Provider: 10:30 Pt is a 62yoCM with a PMH of metastatic renal cell carcinoma, IDDMII, HTN who presented to the ER from [facility] who presented to the ER for hypoxia. He is currently intubated and sedated and unable to provide any history. Reportedly he was found to have sats in the 60s in the [facility] and sent to the ER. He was started on oxygen and responded to 4-5lpm via NC and was able to maintain his sats. He was found ot have bilateral pneumonia and was admitted to the floor. He continued to decompensate with confusion and was found to be hypercarbic. He was transferred to the unit and trialed on BiPAP but was unable to tolerate it and eventually could not no longer protect his airway. ER physician responded for emergent intubation. This morning his ABG has improved but he is now hypotensive and receiving fluid bolus. Subjective/Events-last exam Patient doing much better Lower extremity edema is improving Wide [place] wraps will be initiated Scrotal edema managed by with improvement No pain is reported Bowels are moving Lungs are clear today Completed antibiotics today of Zosyn Off Vapotherm Inpatient rehabilitation eval Review of Systems General: Fatigue Cardiovascular: Edema Objective Exam Vital Signs Vital Signs Date Time Temp Pulse Resp B/P (MAP) Pulse Ox O2 Delivery O2 Flow Rate FiO2 05/16/18 10:12 95 High Flow N/C 12.00 05/16/18 08:00 98.9 90 20 146/71 (96) 05/16/18 06:50 35 Capillary Refill : Less Than 3 Seconds General Appearance: No Apparent Distress, WD/WN, Chronically ill Respiratory: Chest Non Tender, Lungs Clear, Normal Breath Sounds, No Accessory Muscle Use, No Respiratory Distress Cardiovascular: Regular Rate, Rhythm, No Gallop, No JVD, No Murmur, Normal Peripheral Pulses Extremity: Pedal Edema Neurologic/Psychiatric: Alert, Oriented x3, No Motor/Sensory Deficits, Normal Mood/Affect Results/Procedures Lab Laboratory Tests 05/16/18 05:03 Patient resulted labs reviewed. Imaging: Reviewed Imaging Report Assessment/Plan Assessment and Plan Assess & Plan/Chief Complaint Assessment: Anasarca s/p respiratory failure Renal cell CA w/mets to lung s/p Pneumonia Plan: Lasix IV Wide hector wraps Ambulate Evaluate rehab Diagnosis/Problems Diagnosis/Problems (1) Pneumonia Status: Resolved Qualifiers: Aspiration pneumonia type: unspecified Laterality: unspecified laterality Lung location: unspecified part of lung Resolution Date/Time: 05/16/18 @ 12:02 (2) Anasarca Status: Acute (3) Acute renal failure Status: Resolved Qualifiers: Acute renal failure type: unspecified Qualified Codes: N17.9 - Acute kidney failure, unspecified Resolution Date/Time: 05/16/18 @ 12:02 (4) Cough Status: Resolved (5) Insulin dependent diabetes mellitus Status: Chronic (6) 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 Qualifiers: Laterality: unspecified laterality Qualified Codes: C78.00 - Secondary malignant neoplasm of unspecified lung; C64.9 - Malignant neoplasm of unspecified kidney, except renal pelvis Clinical Quality Measures DVT/VTE Risk/Contraindication: Risk Factor Score Per Nursin RFS Level Per Nursing on Admit: 4+=Very High Smoking Cessation Counseling: Counseling-Symptomatic: 3-10 Minutes Discussed Options Including: Nicotine Patch FARHAN COYLE DO May 16, 2018 08:46
[2018-05-16] MEDS: PHENAZOPYRIDINE 100 MG (PYRIDIUM) TABLET PO SCH ×2 (08:57→13:16)
[2018-05-16] MEDS: MICONAZOLE 2% POWDER (DESENEX AF) 90 GM TOP SCH ×2 (08:57→20:26)
[2018-05-16] MEDS: GABAPENTIN 300 MG (NEURONTIN) CAP PO SCH ×3 (08:57→20:26)
[2018-05-16] MEDS: PANTOPRAZOLE 40 MG (PROTONIX) TAB PO SCH ×2 (08:57→20:26)
[2018-05-16] MEDS: HYOSCYAMINE 0.375 MG (LEVBID) TAB PO SCH (08:57)
--- NOTE | 2018-05-16 09:51 | Progress Note-Urology ---
Progress Note-Urology Progress Notes/Assess & Plan Progress/Assessment & Plan DOING AND FEELING MUCH BETTER. KEEP SAME AND MAY BE TOMORROW USE LEVBID AND PYRIDIUM PRN MELVIN HALEY MD May 16, 2018 09:51
--- NOTE | 2018-05-16 10:30 | Oncology Progress Note ---
Subjective Date Seen by a Provider: May 16, 2018 Time Seen by a Provider: 10:24 Subjective/Events-last exam Pt is feeling better. Able to walk in short distance O2 requirement from 15L to 12L and sat 90% Data Review Labs Laboratory Tests 05/16/18 05:03 Laboratory Tests 05/13/18 10:29: Glucometer 517*H 05/13/18 14:30: Albumin 3.0L 05/13/18 16:01: Glucometer 449*H 05/13/18 20:19: Glucometer 483*H 05/14/18 05:40: Glucometer 193H 05/14/18 06:10: White Blood Count 15.1H, Red Blood Count 3.66L, Hemoglobin 10.9L, Hematocrit 35L , Mean Corpuscular Hemoglobin Concent 31L, Red Cell Distribution Width 14.9H, Neutrophils (%) (Auto) 84H, Lymphocytes (%) (Auto) 10L, Neutrophils # (Auto) 12.7H, Blood Urea Nitrogen 30H, Creatinine 1.46H, Glucose Level 191H, Calcium Level 8.4L 05/14/18 11:22: Glucometer 229H 05/14/18 16:15: Glucometer 375H 05/14/18 20:09: Glucometer 371H 05/15/18 05:16: Glucometer 42*L 05/15/18 05:30: White Blood Count 20.5H, Red Blood Count 4.01L, Hemoglobin 11.8L, Hematocrit 38L , Mean Corpuscular Hemoglobin Concent 31L, Red Cell Distribution Width 14.8H, Neutrophils (%) (Auto) 89H, Lymphocytes (%) (Auto) 5L, Neutrophils # (Auto) 18.3H, Monocytes # (Auto) 1.1H, Potassium Level 3.4L, Carbon Dioxide Level 34H, Blood Urea Nitrogen 28H, Glucose Level 35*L 05/15/18 05:51: 05/15/18 11:28: Glucometer 330H 05/15/18 12:45: Urine Specific [place] 1.010L, Urine Glucose (UA) 3+H, Urine Leukocyte Esterase 1+H 05/15/18 15:54: Glucometer 293H 05/15/18 20:08: Glucometer 348H 05/16/18 05:03: White Blood Count 13.5H, Red Blood Count 3.37L, Hemoglobin 10.1L, Hematocrit 32L , Red Cell Distribution Width 14.6H, Neutrophils (%) (Auto) 84H, Lymphocytes (% ) (Auto) 8L, Neutrophils # (Auto) 11.3H, Carbon Dioxide Level 37H, Blood Urea Nitrogen 26H, Creatinine 1.40H, Glucose Level 124H, Calcium Level 8.3L Laboratory Tests 05/16/18 05:03 Physical Exam Vital Signs Vital Signs - First Documented 05/10/18 00:00 Temp 97.0 Pulse 58 Resp 24 B/P (MAP) 117/49 (71) Pulse Ox 99 O2 Delivery Mechanical Ventilator O2 Flow Rate 25.00 FiO2 25 Capillary Refill : Less Than 3 Seconds Height, Weight, BMI Height: 6'4.00" Weight: 247lbs. 7.0oz. 112.150173nb; 25.7 BMI Method:Stated General Appearance: No Apparent Distress Respiratory: No Accessory Muscle Use, No Respiratory Distress, Crackles Cardiovascular: Regular Rate, Rhythm, Tachycardia Gastrointestinal: Non Tender, Soft Extremity: Pedal Edema, Swelling Neurologic/Psychiatric: Alert, Oriented x3 Impression & Plan Impression & Plan 1. Respiratory failure and pneumonia , improved, Off vent. Dr Scanlon and Dr Araya to decide the antibiotics and hospital course. Pt can be discharged from Hem/Onc point of view. 2. ? Pneumonitis from Opdivo immunotherapy. Change IV to PO Prednisone 20mg a day over 2 days and then 10 mg over 2 days then off today. 3. 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 Pathology approved lung metastasis 04/29/17. Started Opdivo treatment 09-28-2017. CT scan 03-20-18 showed improvement. Last cycle #11 was given 04/23/2018. Because of #1 and #2 above, Pt needs rest and treatment break at least for a month. [facility] will [facility] 06[facility]16[facility]18 2pm. I gave him f/u appointment card today. 4. Hypotensive, sepsis. PICC line placement for IVF. 5. Type II diabetes on insulin 6. Acute and on chronic renal insufficiency, improving 7. Pt can go home from Hem/Onc stand point of view. See me at [facility] on . I have already given pt appointment card. Clinical Quality Measures DVT/VTE Risk/Contraindication: Risk Factor Score Per Nursin RFS Level Per Nursing on Admit: 4+=Very High Smoking Cessation Counseling: Counseling-Symptomatic: 3-10 Minutes Discussed Options Including: Nicotine Patch ARABELLA BILLY MD May 16, 2018 10:30
--- NOTE | 2018-05-16 11:00 | Physical Therapy Daily Note ---
PT Daily Note-Current Subjective Patient agrees to PT. He is currently on 10L O2 HF NC Pain Numeric Pain Scale: 0-No Pain Location: No Pain Reported Mental Status Patient Orientation: Normal For Age Attachments: Oxygen, IV Transfers Therapy Code Descriptions/Definitions Functional [place] Measure: 0=Not Assessed/NA 4=Minimal Assistance 1=Total Assistance 5=Supervision or Setup 2=Maximal Assistance 6=Modified [place] 3=Moderate Assistance 7=Complete [place] Therapy Quality Codes: 6 Independent with activity with or without an assistive device 5 Patient requires set up or clean up by helper. Patient completes activity by themselves 4 Supervision or touching assist (CGA). [place] provide cues , steadying assist 3 The helper provides less than half the effort to complete the activity 2 The helper provides more than half the effort to complete the activity 1 Dependent. The helper does all the effort to complete an activity 7 Patient refused to complete or attempt activity 9 The patient did not perform the activity before the current illness or injury 88 Not attempted due to Medical conditions or safety concerns Transfers (B, C, W/C) (FIM): 6 Scootin Sit to/from Stand: 6 Weight Bearing Right Lower Extremity: Right Full Weight Bearing Left Lower Extremity: Left Full Weight Bearing Gait Training Gait (FIM): 6 Distance (FIM): 3=150 ft Distance: 300' Gait Level of Assist: 6 Gait Assistive Device: FWW safe and functional/O2 12L NC HF with activity Assessment Patient tolerated treatment well and remains up in recliner with needs met. Per patient report, they are going to wean O2 on this date. PT Snf Goals Snf Goals PT Snf Goals Time Frame: May 21, 2018 Transfers (B,C,W/C) (FIM): 6 Gait (FIM): 6 Gait distance (FIM): 3=150 ft Distance: 300' Gait Level of Assist: 6 Gait Assistive Device: None, FWW Stairs (FIM): 5 # of Steps: 8 Stairs Level Of Assist: 5 PT Plan Treatment/Plan Treatment Plan: Continue Plan of Care Treatment Plan: Bed Mobility, Education, Functional Activity Deshawn, Functional Strength, Gait, Safety, Therapeutic Exercise, Transfers Treatment Duration: May 21, 2018 Frequency: 6 times per week Estimated Hrs Per Day: .25 hour per day Patient and/or Family Agrees t: Yes Time/GCodes Time In: 1030 Time Out: 1040 Total Billed Treatment Time: 10 Total Billed Treatment 1 visit FA 10 min SUE CONTRERAS PT May 16, 2018 11:00
[2018-05-16 12:00] VITALS: BP 143/69
--- NOTE | 2018-05-16 13:19 | Progress Note-Cardiology ---
Cardiology SOAP Progress Note Subjective: Shortness of breath improving very slowly No cp or palp or syncope Persistent leg swelling Objective: I&O/Vital Signs 05/16/18 05/16/18 05/16/18 05/16/18 02:17 04:00 06:50 08:00 Temp 99.2 Pulse 88 Resp 20 B/P (MAP) 135/60 (85) Pulse Ox 90 93 90 95 O2 Delivery Vapotherm Vapotherm Vapotherm High Flow N/C O2 Flow Rate 15.00 36.00 15.00 12.00 10.00 FiO2 35 35 05/16/18 05/16/18 05/16/18 08:00 08:35 10:12 Temp 98.9 Pulse 90 Resp 20 B/P (MAP) 146/71 (96) Pulse Ox 97 98 95 O2 Delivery High Flow N/C Nasal Cannula High Flow N/C O2 Flow Rate 10.00 15.00 12.00 05/16/18 00:00 Intake Total 1630 ml Output Total 2200 ml Balance -570 ml Weight (Pounds): 247 Weight (Ounces): 7.0 Weight (Calculated Kilograms): 112.682361 Constitutional: AAO x 3, well-developed, well-nourished Respiratory: No accessory muscle use, No respiratory distress; other (fair bilat air entry; prolonged exp; scattered rhonchi over large air ways) Cardiovascular: regular rate-rhythm; No JVD; S1 and S2 Gastrointestional: No tender; soft; No guarding, No rebound; audible bowel sounds Extremities: No clubbing, No cyanosis; significant edema Neurologic/Psychiatric: other (appropriately responsive; moves all limbs equally) Skin: normal color, cool (lower extremities) Results/Procedures: Labs Laboratory Tests 05/15/18 15:54: Glucometer 293H 05/15/18 20:08: Glucometer 348H 05/16/18 05:03: White Blood Count 13.5H, Red Blood Count 3.37L, Hemoglobin 10.1L, Hematocrit 32L , Mean Corpuscular Volume 95, Mean Corpuscular Hemoglobin 30, Mean Corpuscular Hemoglobin Concent 32, Red Cell Distribution Width 14.6H, Platelet Count 242, Mean Platelet Volume 9.7, Neutrophils (%) (Auto) 84H, Lymphocytes (%) (Auto) 8L , Monocytes (%) (Auto) 5, Eosinophils (%) (Auto) 2, Basophils (%) (Auto) 0, Neutrophils # (Auto) 11.3H, Lymphocytes # (Auto) 1.1, Monocytes # (Auto) 0.7, Eosinophils # (Auto) 0.3, Basophils # (Auto) 0.0, Sodium Level 143, Potassium Level 3.6, Chloride Level 99, Carbon Dioxide Level 37H, Anion Gap 7, Blood Urea Nitrogen 26H, Creatinine 1.40H, Estimat Glomerular Filtration Rate 51, BUN/ Creatinine Ratio 19, Glucose Level 124H, Calcium Level 8.3L, B-Type Natriuretic Peptide 42.6 05/16/18 10:51: Glucometer 279H Microbiology 05/07/18 Blood Culture - Final, Complete No growth 05/09/18 MRSA Screen - Final, Complete MRSA not isolated Laboratory Tests 05/15/18 05:30 05/16/18 05:03 A/P: Assessment: Ac resp failure, improved Sinus bradycardia - likely due to metabolic abnormalities and/or dexmedetomidine during mech vent, now resolved Pneumonia with sepsis- management per Medical services CKD 3 H/o renal cell carcinoma - post left nephrectomy in 2006 at [facility] Metastatic lung cancer - receiving chemo (last tx on 04-23-18) - management per Oncology services (Dr. Mcneil) Bilateral leg swelling due to venous insuff Plan: * Add oral furosemide * K, if needed * Continue to monitor labs * Dr Booth covering the Card Svce over this weekend Clinical Quality Measures Smoking Cessation Counseling: Counseling-Symptomatic: 3-10 Minutes Discussed Options Including: Nicotine Patch KANG PEREZ MD FACP [facility] CCDS May 16, 2018 13:19
[2018-05-16] MEDS ORDERED: KCL 10 MEQ TAB (MICRO K) PO NR (13:30)
[2018-05-16] MEDS ORDERED: FUROSEMIDE 40 MG (LASIX) TAB PO NR (13:30)
[2018-05-16 16:00] VITALS: BP 132/68
[2018-05-16] MEDS ORDERED: PHENAZOPYRIDINE 100 MG (PYRIDIUM) TABLET PO PRN (16:15)
[2018-05-16] MEDS ORDERED: HYOSCYAMINE 0.375 MG (LEVBID) TAB PO PRN (16:15)
[2018-05-16] MEDS ORDERED: LIDOCAINE UROJET 2% GEL 10 ML PKG TOP PRN (16:30)
[2018-05-16] MEDS: TAMSULOSIN 0.4 MG (FLOMAX) CAP PO SCH (16:46)
[2018-05-16 20:00] VITALS: BP 131/62
[2018-05-17 00:50] VITALS: BP 123/56
[2018-05-17] MEDS: aCETylcysteine 20% (MUCOMYST) 30ML SOLN VIAL INH SCH ×5 (01:39→19:01)
[2018-05-17] MEDS: RT-ALBUTEROL/IPRATROPIUM 3 ML (DUONEB) VIAL INH SCH ×6 (01:39→21:11)
[2018-05-17 04:30] VITALS: BP 123/56
[2018-05-17 05:31] LABS: BASOPHILS % (AUTO) 0 % (0-10); EOSINOPHILS # (AUTO) 0.3 10^3/uL (0.0-0.3); EOSINOPHILS % (AUTO) 2 % (0-10); HEMATOCRIT 32 % (40-54); HEMOGLOBIN 9.9 G/DL (13.3-17.7); LYMPHOCYTES # (AUTO) 1.1 X 10^3 (1.0-4.0); LYMPHOCYTES % (AUTO) 10 % (12-44); MEAN CORPUSCULAR HEMOGLOBIN 30 PG (25-34); MEAN CORPUSCULAR HGB CONC 31 G/DL (32-36); MEAN CORPUSCULAR VOLUME 96 FL (80-99); MONOCYTES # (AUTO) 0.8 X 10^3 (0.0-1.0); MONOCYTES % (AUTO) 7 % (0-12); NEUTROPHILS # (AUTO) 9.5 X 10^3 (1.8-7.8); NEUTROPHILS % (AUTO) 81 % (42-75); PLATELET COUNT 221 10^3/uL (130-400); RED BLOOD COUNT 3.33 10^6/uL (4.35-5.85); RED CELL DISTRIBUTION WIDTH 14.7 % (10.0-14.5); WHITE BLOOD COUNT 11.7 10^3/uL (4.3-11.0)
[2018-05-17 05:49] LABS: CALCIUM 8.8 MG/DL (8.5-10.1); CREATININE SERUM 1.37 MG/DL (0.60-1.30); POTASSIUM 3.9 MMOL/L (3.6-5.0)
[2018-05-17] MEDS: KCL 10 MEQ TAB (MICRO K) PO SCH (06:29)
[2018-05-17] MEDS: inSUlin DETERMIR 1 UNIT/0.01 ML (LEVEMIR) CHARGE PER UNIT SQ SCH ×2 (06:30→20:34)
[2018-05-17] MEDS: inSUlin ASPART (NovoLOG) 1 UNIT/0.01 ML (CHARGE PER UNIT) SC SCH ×4 (06:30→20:33)
--- NOTE | 2018-05-17 07:06 | Pulmonary Progress Note ---
Subjective Time Seen by a Provider: 07:08 Subjective/Events-last exam NO complications noted. Sepsis Event Evaluation Height, Weight, BMI Height: 6'4.00" Weight: 247lbs. 7.0oz. 112.220215fe; 25.7 BMI Method:Stated Exam Exam Vital Signs Date Time Temp Pulse Resp B/P (MAP) Pulse Ox O2 Delivery O2 Flow Rate FiO2 05/17/18 01:39 95 High Flow N/C 6.00 05/17/18 00:50 98.4 74 18 123/56 (78) 96 High Flow N/C 10.00 05/16/18 21:36 94 High Flow N/C 8.00 05/16/18 20:00 98.6 87 20 131/62 (85) 95 High Flow N/C 10.00 05/16/18 19:45 High Flow N/C 8.00 05/16/18 18:51 96 High Flow N/C 8.00 05/16/18 16:00 98.4 69 18 132/68 (89) 95 High Flow N/C 10.00 05/16/18 14:09 96 High Flow N/C 10.00 05/16/18 12:00 98.5 87 18 143/69 (93) 97 High Flow N/C 10.00 05/16/18 10:12 95 High Flow N/C 12.00 05/16/18 08:35 98 Nasal Cannula 15.00 05/16/18 08:00 98.9 90 20 146/71 (96) 97 High Flow N/C 10.00 05/16/18 08:00 95 High Flow N/C 12.00 I & O 05/17/18 07:00 Intake Total 1510 ml Output Total 3520 ml Balance -2010 ml Height & Weight Height: 6'4.00" Weight: 247lbs. 7.0oz. 112.447236ne; 25.7 BMI Method:Stated General Appearance: No Apparent Distress, WD/WN, Chronically ill HEENT: PERRL/EOMI Neck: Full Range of Motion, Non Tender Respiratory: Chest Non Tender, Lungs Clear, Normal Breath Sounds, No Accessory Muscle Use, No Respiratory Distress Cardiovascular: Regular Rate, Rhythm, No Gallop, No JVD, No Murmur, Normal Peripheral Pulses Capillary Refill: Less Than 3 Seconds Gastrointestinal: normal bowel sounds, non tender, soft Extremity: Pedal Edema Neurologic/Psychiatric: Alert, Oriented x3, No Motor/Sensory Deficits, Normal Mood/Affect Skin: Normal Color, Warm/Dry Results Lab Laboratory Tests 05/16/18 05:03 05/17/18 05:25 Assessment/Plan Assessment/Plan Acute respiratory distress/failure - improving -continue oxygen -titrate as tolerated. 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 Mcneil is following -Last Chemo 04/23 -nephrectomy 2017 ANETA HAWKINS DO May 17, 2018 07:06
[2018-05-17 08:00] VITALS: BP 142/65
[2018-05-17] MEDS: PANTOPRAZOLE 40 MG (PROTONIX) TAB PO SCH ×2 (08:25→20:33)
[2018-05-17] MEDS: FUROSEMIDE 20 MG (LASIX) TAB PO SCH (08:25)
[2018-05-17] MEDS: GABAPENTIN 300 MG (NEURONTIN) CAP PO SCH ×3 (08:25→20:33)
[2018-05-17] MEDS: oxyCODONE/APAP 7.5-325 MG (PERCOCET 7.5) TABLET PO PRN (08:26)
--- NOTE | 2018-05-17 09:39 | Progress Note-Urology ---
Progress Note-Urology Progress Notes/Assess & Plan Progress/Assessment & Plan HAS RETENTION. STARTED ON FLOMAX. PLAN PUENTE FOR A DAY OR 2 THEN TOV AGAIN, ? CYSTO, ?URECHOLINE Final Diagnosis URINE RETENTION MELVIN HALEY MD May 17, 2018 09:39
[2018-05-17 12:00] VITALS: BP 128/59
--- NOTE | 2018-05-17 13:00 | Progress Note-Hospitalist ---
Subjective HPI/CC On Admission Date Seen by Provider: May 17, 2018 Time Seen by Provider: 12:00 Pt is a 62yoCM with a PMH of metastatic renal cell carcinoma, IDDMII, HTN who presented to the ER from [facility] who presented to the ER for hypoxia. He is currently intubated and sedated and unable to provide any history. Reportedly he was found to have sats in the 60s in the [facility] and sent to the ER. He was started on oxygen and responded to 4-5lpm via NC and was able to maintain his sats. He was found ot have bilateral pneumonia and was admitted to the floor. He continued to decompensate with confusion and was found to be hypercarbic. He was transferred to the unit and trialed on BiPAP but was unable to tolerate it and eventually could not no longer protect his airway. ER physician responded for emergent intubation. This morning his ABG has improved but he is now hypotensive and receiving fluid bolus. Subjective/Events-last exam Patient is sitting up getting his breathing treatment. He has been having trouble with urinary retention and we had to straight catheter him last night when he had almost thousand cc of urine. Dr. Saldivar put him on Flomax. The patient's chest x-ray continues to show bilateral pleural effusions but otherwise appears to be a little bit better. Currently has no complaint. Review of Systems Pulmonary: Dyspnea Genitourinary: Retention Neurological: Weakness Objective Exam Vital Signs Vital Signs Date Time Temp Pulse Resp B/P (MAP) Pulse Ox O2 Delivery O2 Flow Rate FiO2 05/17/18 16:20 98.1 80 18 134/65 (88) 97 High Flow N/C 6.00 05/16/18 06:50 35 Capillary Refill : Less Than 3 Seconds General Appearance: Chronically ill Neck: Limited Range of Motion Respiratory: Decreased Breath Sounds Cardiovascular: Systolic Murmur, Irregularly Irregular Gastrointestinal: Normal Bowel Sounds, Non Tender, Soft Rectal: Deferred Back: Normal Inspection Extremity: Pedal Edema Neurologic/Psychiatric: Alert, Oriented x3, Normal Mood/Affect Results/Procedures Lab Laboratory Tests 05/17/18 05:25 Patient resulted labs reviewed. Imaging: Reviewed Imaging Report Assessment/Plan Assessment and Plan Assess & Plan/Chief Complaint 1. Status post respiratory failure and arrest-has never been on O2 before and is down to 5 L. 2. IBIlateral pneumonia 3. Metastatic renal cell carcinoma 4. Type II diabetes labile 5. Urinary retention status post catheter placement 6. Deconditioning-consider rehabilitation Diagnosis/Problems Diagnosis/Problems (1) Acute respiratory failure Status: Acute Qualifiers: Respiratory failure complication: hypoxia and hypercapnia Qualified Codes: J96.01 - Acute respiratory failure with hypoxia; J96.02 - Acute respiratory failure with hypercapnia (2) 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 Qualifiers: Laterality: unspecified laterality Qualified Codes: C78.00 - Secondary malignant neoplasm of unspecified lung; C64.9 - Malignant neoplasm of unspecified kidney, except renal pelvis (3) Insulin dependent diabetes mellitus Status: Chronic (4) Pneumonia Status: Resolved Qualifiers: Aspiration pneumonia type: unspecified Laterality: unspecified laterality Lung location: unspecified part of lung Resolution Date/Time: 05/16/18 @ 12:02 (5) Urinary retention Clinical Quality Measures DVT/VTE Risk/Contraindication: Risk Factor Score Per Nursin RFS Level Per Nursing on Admit: 4+=Very High Smoking Cessation Counseling: Counseling-Symptomatic: 3-10 Minutes Discussed Options Including: Nicotine Patch FELIPE STEWART MD May 17, 2018 13:00
[2018-05-17] MEDS: MICONAZOLE 2% POWDER (DESENEX AF) 90 GM TOP SCH ×2 (13:04→20:34)
--- NOTE | 2018-05-17 13:57 | Physical Therapy Daily Note ---
PT Daily Note-Current Subjective Pt sitting up in bed upon arrival. Pt agrees to PT but reports would rather not walk until Valente is placed due to leakage. Mental Status Patient Orientation: Person, Place, Time, Situation Attachments: Oxygen (6L) Transfers Therapy Code Descriptions/Definitions Functional Mccone Measure: 0=Not Assessed/NA 4=Minimal Assistance 1=Total Assistance 5=Supervision or Setup 2=Maximal Assistance 6=Modified Mccone 3=Moderate Assistance 7=Complete Mccone Therapy Quality Codes: 6 Independent with activity with or without an assistive device 5 Patient requires set up or clean up by helper. Patient completes activity by themselves 4 Supervision or touching assist (CGA). Costa provide cues , steadying assist 3 The helper provides less than half the effort to complete the activity 2 The helper provides more than half the effort to complete the activity 1 Dependent. The helper does all the effort to complete an activity 7 Patient refused to complete or attempt activity 9 The patient did not perform the activity before the current illness or injury 88 Not attempted due to Medical conditions or safety concerns Weight Bearing Right Lower Extremity: Right Full Weight Bearing Left Lower Extremity: Left Full Weight Bearing Exercises Supine Ex: Bridging, Ankle pumps, Quad Set, Rolling, Glut sets, Heel Slides, Scooting, Straight leg raise, Hip abd/add Supine Reps: 15 Treatments Pt completes Supine Ex in bed with a couple short rest breaks. Pt also has to use urinal constantly due to leakage. Pt has urine retention and bladder gets so full that it slowly leaks. Pt has all needs met at end of tx. Assessment Current Status: Good Progress Pt completes Ex well and states will walk with Nurse later after Valente is placed. PT Refrigerated [employer] Goals Refr[employer]ated [employer] Goals PT Ref[employer]igerated [employer] Goals Time Frame: May 21, 2018 Transfers (B,C,W/C) (FIM): 6 Gait (FIM): 6 Gait distance (FIM): 3=150 ft Distance: 300' Gait Level of Assist: 6 Gait Assistive Device: None, FWW Stairs (FIM): 5 # of Steps: 8 Stairs Level Of Assist: 5 PT Plan Problem List Problem List: Activity Tolerance, Functional Strength, Safety Treatment/Plan Treatment Plan: Continue Plan of Care Treatment Plan: Bed Mobility, Education, Functional Activity Deshawn, Functional Strength, Gait, Safety, Therapeutic Exercise, Transfers Treatment Duration: May 21, 2018 Frequency: 6 times per week Estimated Hrs Per Day: .25 hour per day Patient and/or Family Agrees t: Yes Safety Risks/Education Patient Education: Correct Positioning, Disease Process, Safety Issues Teaching Recipient: Patient Teaching Methods: Discussion Response to Teaching: Verbalize Understanding Time/GCodes Time In: 1230 Time Out: 1255 Total Billed Treatment Time: 25 Total Billed Treatment 1, EX x2 (25m) G Codes Necessary: ANDRÉS Ledezma PTA May 17, 2018 13:57
[2018-05-17 16:20] VITALS: BP 134/65
[2018-05-17] MEDS: TAMSULOSIN 0.4 MG (FLOMAX) CAP PO SCH (17:39)
[2018-05-17 19:40] VITALS: BP 129/60
[2018-05-18] VITALS: BP 121/58
[2018-05-18] MEDS: RT-ALBUTEROL/IPRATROPIUM 3 ML (DUONEB) VIAL INH SCH ×6 (01:21→21:36)
[2018-05-18 05:47] LABS: BASOPHILS % (AUTO) 0 % (0-10); EOSINOPHILS # (AUTO) 0.3 10^3/uL (0.0-0.3); EOSINOPHILS % (AUTO) 3 % (0-10); HEMATOCRIT 32 % (40-54); HEMOGLOBIN 9.8 G/DL (13.3-17.7); LYMPHOCYTES % (AUTO) 11 % (12-44); MEAN CORPUSCULAR HEMOGLOBIN 30 PG (25-34); MEAN CORPUSCULAR HGB CONC 31 G/DL (32-36); MEAN CORPUSCULAR VOLUME 97 FL (80-99); MONOCYTES # (AUTO) 0.9 X 10^3 (0.0-1.0); MONOCYTES % (AUTO) 10 % (0-12); NEUTROPHILS # (AUTO) 6.8 X 10^3 (1.8-7.8); NEUTROPHILS % (AUTO) 76 % (42-75); PLATELET COUNT 245 10^3/uL (130-400); RED BLOOD COUNT 3.32 10^6/uL (4.35-5.85); RED CELL DISTRIBUTION WIDTH 14.9 % (10.0-14.5)
[2018-05-18 06:04] LABS: BUN/CREATININE RATIO 18; CALCIUM 8.5 MG/DL (8.5-10.1); CARBON DIOXIDE 42 MMOL/L (21-32); CHLORIDE 92 MMOL/L (98-107); CREATININE SERUM 1.17 MG/DL (0.60-1.30); GFR ESTIMATED > 60; GLUCOSE 103 MG/DL (70-105); POTASSIUM 4.1 MMOL/L (3.6-5.0); SODIUM 144 MMOL/L (135-145)
[2018-05-18] MEDS: inSUlin ASPART (NovoLOG) 1 UNIT/0.01 ML (CHARGE PER UNIT) SC SCH ×4 (06:16→20:23)
[2018-05-18] MEDS: KCL 10 MEQ TAB (MICRO K) PO SCH (06:18)
[2018-05-18] MEDS: inSUlin DETERMIR 1 UNIT/0.01 ML (LEVEMIR) CHARGE PER UNIT SQ SCH ×2 (06:21→20:23)
--- NOTE | 2018-05-18 06:34 | Pulmonary Progress Note ---
Sepsis Event Evaluation Height, Weight, BMI Height: 6'4.00" Weight: 234lbs. 3.0oz. 106.135079os; 25.7 BMI Method:Stated Exam Exam Vital Signs Date Time Temp Pulse Resp B/P (MAP) Pulse Ox O2 Delivery O2 Flow Rate FiO2 05/18/18 01:21 94 High Flow N/C 5.00 05/18/18 00:00 97.8 74 18 121/58 (79) 97 High Flow N/C 6.00 05/17/18 21:11 95 High Flow N/C 6.00 05/17/18 19:40 95 High Flow N/C 6.00 05/17/18 19:40 98.0 86 14 129/60 (83) 94 High Flow N/C 6.00 05/17/18 19:01 92 High Flow N/C 6.00 05/17/18 16:20 98.1 80 18 134/65 (88) 97 High Flow N/C 6.00 05/17/18 15:10 High Flow N/C 5.00 05/17/18 12:00 98.7 78 18 128/59 (82) 94 High Flow N/C 10.00 05/17/18 11:15 93 High Flow N/C 5.00 05/17/18 08:00 High Flow N/C 8.00 05/17/18 08:00 98.3 89 18 142/65 (90) 95 High Flow N/C 10.00 05/17/18 07:12 95 High Flow N/C 6.00 I & O 05/18/18 07:00 Intake Total 1780 ml Output Total 1750 ml Balance 30 ml Height & Weight Height: 6'4.00" Weight: 234lbs. 3.0oz. 106.017175jo; 25.7 BMI Method:Stated General Appearance: Chronically ill HEENT: PERRL/EOMI Neck: Limited Range of Motion Respiratory: Decreased Breath Sounds Cardiovascular: Systolic Murmur, Irregularly Irregular Capillary Refill: Less Than 3 Seconds Gastrointestinal: normal bowel sounds, non tender, soft Extremity: Pedal Edema Neurologic/Psychiatric: Alert, Oriented x3, Normal Mood/Affect Skin: Normal Color, Warm/Dry Results Lab Laboratory Tests 05/17/18 05:25 05/18/18 05:30 Assessment/Plan Assessment/Plan Acute respiratory distress/failure - improving -continue oxygen -titrate as tolerated. 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 Mcneil is following -Last Chemo 04/23 -nephrectomy 2017 ANETA HAWKINS DO May 18, 2018 06:34
[2018-05-18] MEDS: aCETylcysteine 20% (MUCOMYST) 30ML SOLN VIAL INH SCH ×3 (06:50→19:29)
[2018-05-18 08:00] VITALS: BP 142/64
[2018-05-18] MEDS: GABAPENTIN 300 MG (NEURONTIN) CAP PO SCH ×3 (09:25→20:22)
[2018-05-18] MEDS: FUROSEMIDE 20 MG (LASIX) TAB PO SCH (09:25)
[2018-05-18] MEDS: PANTOPRAZOLE 40 MG (PROTONIX) TAB PO SCH ×2 (09:26→20:22)
[2018-05-18] MEDS: MICONAZOLE 2% POWDER (DESENEX AF) 90 GM TOP SCH ×2 (09:26→20:23)
[2018-05-18] MEDS: oxyCODONE/APAP 7.5-325 MG (PERCOCET 7.5) TABLET PO PRN ×2 (09:26→16:31)
--- NOTE | 2018-05-18 12:50 | Progress Note-Hospitalist ---
Subjective HPI/CC On Admission Date Seen by Provider: May 18, 2018 Time Seen by Provider: 12:30 Pt is a 62yoCM with a PMH of metastatic renal cell carcinoma, IDDMII, HTN who presented to the ER from [facility] who presented to the ER for hypoxia. He is currently intubated and sedated and unable to provide any history. Reportedly he was found to have sats in the 60s in the [facility] and sent to the ER. He was started on oxygen and responded to 4-5lpm via NC and was able to maintain his sats. He was found ot have bilateral pneumonia and was admitted to the floor. He continued to decompensate with confusion and was found to be hypercarbic. He was transferred to the unit and trialed on BiPAP but was unable to tolerate it and eventually could not no longer protect his airway. ER physician responded for emergent intubation. This morning his ABG has improved but he is now hypotensive and receiving fluid bolus. Subjective/Events-last exam patient is sitting up eating on 4 L nasal cannulaand feels much better. He is asking about when he can go home because he wants to get back to work. 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 We discussed that he may have to go home on oxygen but he is highly resistant to this idea and does not seem to have insight into how ill he spend. He finds the Valente catheter a nuisance Review of Systems Pulmonary: Dyspnea Objective Exam Vital Signs Vital Signs Date Time Temp Pulse Resp B/P (MAP) Pulse Ox O2 Delivery O2 Flow Rate FiO2 05/18/18 10:34 93 High Flow N/C 4.00 05/18/18 08:00 99.2 88 14 142/64 (90) 05/16/18 06:50 35 Capillary Refill : Less Than 3 Seconds General Appearance: Chronically ill Neck: Normal Inspection, Non Tender Respiratory: Chest Non Tender, Decreased Breath Sounds Cardiovascular: Regular Rate, Rhythm, No Gallop, Normal Peripheral Pulses, Systolic Murmur Gastrointestinal: Normal Bowel Sounds, Non Tender, Soft Rectal: Deferred Back: Normal Inspection, No CVA Tenderness Extremity: Pedal Edema Neurologic/Psychiatric: Alert, Oriented x3, Normal Mood/Affect Skin: Normal Color, Warm/Dry Results/Procedures Lab Laboratory Tests 05/18/18 05:30 Patient resulted labs reviewed. Imaging: Reviewed Imaging Report Assessment/Plan Assessment and Plan Assess & Plan/Chief Complaint 1. Status post respiratory failure and arrest-has never been on O2 before and is down to 4 L. 2. BIlateral pneumonia 3. Metastatic renal cell carcinoma 4. Type II diabetes labile 5. Urinary retention status post catheter placement 6. Deconditioning-consider rehabilitation Diagnosis/Problems Diagnosis/Problems (1) Acute respiratory failure Status: Acute Qualifiers: Respiratory failure complication: hypoxia and hypercapnia Qualified Codes: J96.01 - Acute respiratory failure with hypoxia; J96.02 - Acute respiratory failure with hypercapnia (2) 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 Qualifiers: Laterality: unspecified laterality Qualified Codes: C78.00 - Secondary malignant neoplasm of unspecified lung; C64.9 - Malignant neoplasm of unspecified kidney, except renal pelvis (3) Insulin dependent diabetes mellitus Status: Chronic (4) Pneumonia Status: Resolved Qualifiers: Aspiration pneumonia type: unspecified Laterality: unspecified laterality Lung location: unspecified part of lung Resolution Date/Time: 05/16/18 @ 12:02 (5) Urinary retention Clinical Quality Measures DVT/VTE Risk/Contraindication: Risk Factor Score Per Nursin RFS Level Per Nursing on Admit: 4+=Very High Smoking Cessation Counseling: Counseling-Symptomatic: 3-10 Minutes Discussed Options Including: Nicotine Patch FELIPE STEWART MD May 18, 2018 12:50
[2018-05-18 12:53] VITALS: BP 126/57
[2018-05-18 16:40] VITALS: BP_SYST 126; BP_SYST 133; BP_DIAS 59; BP_DIAS 77
[2018-05-18] MEDS: TAMSULOSIN 0.4 MG (FLOMAX) CAP PO SCH (19:30)
[2018-05-18 20:00] VITALS: BP 138/60
[2018-05-18] MEDS: morphine INJ 4 MG/ML 1 ML (VIAL/SYRINGE) IVP PRN (20:22)
[2018-05-19] VITALS: BP 115/52
[2018-05-19] MEDS: RT-ALBUTEROL/IPRATROPIUM 3 ML (DUONEB) VIAL INH SCH ×6 (01:06→22:20)
[2018-05-19 04:00] VITALS: BP 153/67
[2018-05-19 05:47] LABS: BASOPHILS % (AUTO) 0 % (0-10); EOSINOPHILS # (AUTO) 0.3 10^3/uL (0.0-0.3); EOSINOPHILS % (AUTO) 3 % (0-10); HEMATOCRIT 32 % (40-54); HEMOGLOBIN 9.9 G/DL (13.3-17.7); LYMPHOCYTES # (AUTO) 1.3 X 10^3 (1.0-4.0); LYMPHOCYTES % (AUTO) 15 % (12-44); MEAN CORPUSCULAR HEMOGLOBIN 30 PG (25-34); MEAN CORPUSCULAR HGB CONC 31 G/DL (32-36); MEAN CORPUSCULAR VOLUME 96 FL (80-99); MEAN PLATELET VOLUME 9.8 FL (7.4-10.4); MONOCYTES # (AUTO) 0.9 X 10^3 (0.0-1.0); MONOCYTES % (AUTO) 11 % (0-12); NEUTROPHILS # (AUTO) 6.3 X 10^3 (1.8-7.8); NEUTROPHILS % (AUTO) 71 % (42-75); PLATELET COUNT 218 10^3/uL (130-400); RED BLOOD COUNT 3.31 10^6/uL (4.35-5.85); RED CELL DISTRIBUTION WIDTH 14.7 % (10.0-14.5); WHITE BLOOD COUNT 8.8 10^3/uL (4.3-11.0)
[2018-05-19 06:00] LABS: CREATININE SERUM 1.35 MG/DL (0.60-1.30); POTASSIUM 4.3 MMOL/L (3.6-5.0)
[2018-05-19] MEDS: inSUlin ASPART (NovoLOG) 1 UNIT/0.01 ML (CHARGE PER UNIT) SC SCH ×4 (06:20→21:53)
[2018-05-19] MEDS: inSUlin DETERMIR 1 UNIT/0.01 ML (LEVEMIR) CHARGE PER UNIT SQ SCH ×2 (06:21→21:53)
[2018-05-19] MEDS: KCL 10 MEQ TAB (MICRO K) PO SCH (06:21)
--- NOTE | 2018-05-19 06:41 | Pulmonary Progress Note ---
CHRIS CRUZ MED STUDENT 05/19/18 0641: Subjective Date Seen by a Provider: May 19, 2018 Time Seen by a Provider: 06:37 Subjective/Events-last exam Patient appears to be much improved, is sitting up in bed with no SOB this morning. He reports his condition is improved and he feels strong enough for discharge. Sepsis Event Evaluation Height, Weight, BMI Height: 6'4.00" Weight: 224lbs. 6.0oz. 101.066687kk; 25.7 BMI Method:Stated Focused Exam Respiratory: Chest Non Tender, Lungs Clear, Normal Breath Sounds, No Accessory Muscle Use, Other (on 3L O2 via nasal canula) Cardiovascular: Regular Rate, Rhythm, No Murmur Skin: normal color, warm/dry Exam Exam Vital Signs Date Time Temp Pulse Resp B/P (MAP) Pulse Ox O2 Delivery O2 Flow Rate FiO2 05/19/18 01:06 92 High Flow N/C 3.00 05/19/18 00:00 98.9 79 18 115/52 (73) 93 High Flow N/C 3.00 05/18/18 21:36 91 High Flow N/C 3.00 05/18/18 20:00 98.3 80 18 138/60 (86) 92 High Flow N/C 4.00 05/18/18 19:55 High Flow N/C 3.00 05/18/18 19:29 94 High Flow N/C 4.00 05/18/18 16:40 98.5 114 18 133/59 (83) 96 High Flow N/C 4.00 05/18/18 14:23 92 High Flow N/C 4.00 05/18/18 12:53 98.8 87 18 126/57 (80) 94 High Flow N/C 6.00 05/18/18 10:34 93 High Flow N/C 4.00 05/18/18 08:00 Nasal Cannula 05/18/18 08:00 99.2 88 14 142/64 (90) 93 High Flow N/C 6.00 05/18/18 06:53 92 High Flow N/C 4.00 I & O 05/19/18 07:00 Intake Total 3770 ml Output Total 6025 ml Balance -2255 ml Height & Weight Height: 6'4.00" Weight: 224lbs. 6.0oz. 101.150443if; 25.7 BMI Method:Stated General Appearance: No Apparent Distress, WD/WN HEENT: PERRL/EOMI Neck: Normal Inspection, Non Tender Respiratory: Chest Non Tender, Lungs Clear, Normal Breath Sounds, No Accessory Muscle Use, Other (on 3L via nc) Cardiovascular: Regular Rate, Rhythm, No Gallop Capillary Refill: Less Than 3 Seconds Gastrointestinal: non tender, soft Neurologic/Psychiatric: Alert, Oriented x3, Normal Mood/Affect Skin: Normal Color, Warm/Dry Results Lab Laboratory Tests 05/18/18 05:30 05/19/18 05:42 Assessment/Plan Assessment/Plan Acute respiratory distress/failure - improving -continue oxygen, currently on 3L via nasal canula -titrate as tolerated -home O2 test prior to discharge Pneumonia- resolving Anemia -Monitor 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 Mcneil is following -Last Chemo 04/23 -nephrectomy 2016 ANETA HAWKINS DO 05/19/18 0810: Subjective Time Seen by a Provider: 08:09 Subjective/Events-last exam Pt appears to be doing better. He has less SOB. Exam Exam General Appearance: No Apparent Distress, WD/WN HEENT: PERRL/EOMI Neck: Normal Inspection, Non Tender Respiratory: Chest Non Tender, Lungs Clear, Normal Breath Sounds, No Accessory Muscle Use Cardiovascular: Regular Rate, Rhythm Capillary Refill: Less Than 3 Seconds Gastrointestinal: non tender, soft Neurologic/Psychiatric: Alert, Oriented x3, Normal Mood/Affect Skin: Normal Color, Warm/Dry Assessment/Plan Assessment/Plan Acute respiratory distress/failure - improving -continue oxygen, currently on 3L via nasal canula -titrate as tolerated -home O2 test prior to discharge Pneumonia- resolving Anemia -Monitor 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 Mcneil is following -Last Chemo 04/23 -nephrectomy 2017 CHRIS CRUZ MED STUDENT May 19, 2018 06:41 ANETA HAWKINS DO May 19, 2018 08:10
[2018-05-19] MEDS: aCETylcysteine 20% (MUCOMYST) 30ML SOLN VIAL INH SCH ×3 (06:59→18:21)
[2018-05-19 08:00] VITALS: BP 148/65
[2018-05-19] MEDS: PANTOPRAZOLE 40 MG (PROTONIX) TAB PO SCH ×2 (08:17→20:47)
[2018-05-19] MEDS: FUROSEMIDE 20 MG (LASIX) TAB PO SCH (08:17)
[2018-05-19] MEDS: oxyCODONE/APAP 7.5-325 MG (PERCOCET 7.5) TABLET PO PRN ×2 (08:17→16:38)
[2018-05-19] MEDS: GABAPENTIN 300 MG (NEURONTIN) CAP PO SCH ×3 (08:18→20:47)
[2018-05-19] MEDS: MICONAZOLE 2% POWDER (DESENEX AF) 90 GM TOP SCH ×2 (11:26→20:48)
[2018-05-19 12:00] VITALS: BP 163/79
--- NOTE | 2018-05-19 12:39 | Progress Note-Hospitalist ---
Subjective HPI/CC On Admission Date Seen by Provider: May 19, 2018 Time Seen by Provider: 12:34 Pt is a 62yoCM with a PMH of metastatic renal cell carcinoma, IDDMII, HTN who presented to the ER from [facility] who presented to the ER for hypoxia. He is currently intubated and sedated and unable to provide any history. Reportedly he was found to have sats in the 60s in the [facility] and sent to the ER. He was started on oxygen and responded to 4-5lpm via NC and was able to maintain his sats. He was found ot have bilateral pneumonia and was admitted to the floor. He continued to decompensate with confusion and was found to be hypercarbic. He was transferred to the unit and trialed on BiPAP but was unable to tolerate it and eventually could not no longer protect his airway. ER physician responded for emergent intubation. This morning his ABG has improved but he is now hypotensive and receiving fluid bolus. Subjective/Events-last exam Pt reports feeling better. No complaints. Would like catheter out. Requesting DC. Objective Exam Vital Signs Vital Signs Date Time Temp Pulse Resp B/P (MAP) Pulse Ox O2 Delivery O2 Flow Rate FiO2 05/19/18 14:57 92 3.00 05/19/18 14:16 Nasal Cannula 05/19/18 12:00 98.5 75 18 163/79 (107) 05/16/18 06:50 35 Capillary Refill : Less Than 3 Seconds General Appearance: No Apparent Distress, WD/WN Respiratory: Lungs Clear Cardiovascular: Regular Rate, Rhythm, No Murmur Gastrointestinal: Normal Bowel Sounds, Soft Genital/Rectal: Other (roblero in place) Extremity: No Calf Tenderness, No Pedal Edema Neurologic/Psychiatric: Alert, Oriented x3 Results/Procedures Lab Laboratory Tests 05/19/18 05:42 Patient resulted labs reviewed. Imaging: Reviewed Imaging Report Assessment/Plan Assessment and Plan Assess & Plan/Chief Complaint Acute Respiratory Failure Diagnosis/Problems Diagnosis/Problems (1) Acute respiratory failure Status: Acute Assessment & Plan: Extubated 05/10 Pulm consulted, appreciate recs likely due to pneumonia Still on 3lpm Will get home oxygen study Diuresing well- 3lpm out today and over 5l yesterday Will decrease lasix due to contraction alkalosis Qualifiers: Respiratory failure complication: hypoxia and hypercapnia Qualified Codes: J96.01 - Acute respiratory failure with hypoxia; J96.02 - Acute respiratory failure with hypercapnia (2) Septic shock Status: Resolved Assessment & Plan: Completed abx Resolution Date/Time: 05/19/18 @ 12:36 (3) Acute renal failure Status: Resolved Assessment & Plan: Acute on chronic kidney disease acute aspect resolved Qualifiers: Acute renal failure type: unspecified Qualified Codes: N17.9 - Acute kidney failure, unspecified Resolution Date/Time: 05/16/18 @ 12:02 (4) 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 Assessment & Plan: Follows with Dr Mcneil Consulted, appreciate recs On Opdivo On steroids for possible opdivo induced pneumonitis Qualifiers: Laterality: unspecified laterality Qualified Codes: C78.00 - Secondary malignant neoplasm of unspecified lung; C64.9 - Malignant neoplasm of unspecified kidney, except renal pelvis (5) Insulin dependent diabetes mellitus Status: Chronic Assessment & Plan: Blood sugar improved slightly since yesterday Trend Likely due to steroids (6) Essential (primary) hypertension Status: Chronic Assessment & Plan: BP trending up Holding home lisinopril due to MARÍA Nitro paste added prn (7) Bradycardia Status: Resolved Assessment & Plan: Resolved with discontinuation of precedex Cardiology consulted, appreciate recs Resolution Date/Time: 05/11/18 @ 09:12 Clinical Quality Measures DVT/VTE Risk/Contraindication: Risk Factor Score Per Nursin RFS Level Per Nursing on Admit: 4+=Very High Smoking Cessation Counseling: Counseling-Symptomatic: 3-10 Minutes Discussed Options Including: Nicotine Patch RYANNE DYSON MD May 19, 2018 12:39
--- NOTE | 2018-05-19 14:32 | Physical Therapy Daily Note ---
PT Daily Note-Current Subjective Patient agrees to PT and reports he hopes to go home this week. Pain Numeric Pain Scale: 0-No Pain Location: No Pain Reported Mental Status Patient Orientation: Normal For Age Attachments: Oxygen Transfers Therapy Code Descriptions/Definitions Functional [place] Measure: 0=Not Assessed/NA 4=Minimal Assistance 1=Total Assistance 5=Supervision or Setup 2=Maximal Assistance 6=Modified [place] 3=Moderate Assistance 7=Complete [place] Therapy Quality Codes: 6 Independent with activity with or without an assistive device 5 Patient requires set up or clean up by helper. Patient completes activity by themselves 4 Supervision or touching assist (CGA). [place] provide cues , steadying assist 3 The helper provides less than half the effort to complete the activity 2 The helper provides more than half the effort to complete the activity 1 Dependent. The helper does all the effort to complete an activity 7 Patient refused to complete or attempt activity 9 The patient did not perform the activity before the current illness or injury 88 Not attempted due to Medical conditions or safety concerns Transfers (B, C, W/C) (FIM): 6 Scootin Sit to/from Stand: 6 Weight Bearing Right Lower Extremity: Right Full Weight Bearing Left Lower Extremity: Left Full Weight Bearing Gait Training Gait (FIM): 6 Distance (FIM): 3=150 ft Distance: >500' Gait Level of Assist: 6 Gait Assistive Device: FWW steady, functional pace with FWW Assessment Patient tolerated treatment well and returned to EOB. Patient much improved with gross motor skills. 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 Time Frame: May 21, 2018 Transfers (B,C,W/C) (FIM): 6 Gait (FIM): 6 Gait distance (FIM): 3=150 ft Distance: 300' Gait Level of Assist: 6 Gait Assistive Device: None, FWW Stairs (FIM): 5 # of Steps: 8 Stairs Level Of Assist: 5 PT Plan Treatment/Plan Treatment Plan: Continue Plan of Care Treatment Plan: Bed Mobility, Education, Functional Activity Deshawn, Functional Strength, Gait, Safety, Therapeutic Exercise, Transfers Treatment Duration: May 21, 2018 Frequency: 6 times per week Estimated Hrs Per Day: .25 hour per day Patient and/or Family Agrees t: Yes Time/GCodes Time In: 1350 Time Out: 1404 Total Billed Treatment Time: 14 Total Billed Treatment 1 visit FA 14 min SUE CONTRERAS PT May 19, 2018 14:32
--- NOTE | 2018-05-19 14:48 | Oncology Progress Note ---
Subjective Date Seen by a Provider: May 19, 2018 Time Seen by a Provider: 14:45 Subjective/Events-last exam Doing better. On O2 3L NC Large urine out put. Cr is coming down nicely. Possible home tomorrow. Data Review Labs Laboratory Tests 05/19/18 05:42 Laboratory Tests 05/16/18 16:36: Glucometer 380H 05/16/18 19:48: Glucometer 371H 05/17/18 05:25: White Blood Count 11.7H, Red Blood Count 3.33L, Hemoglobin 9.9L, Hematocrit 32L , Mean Corpuscular Hemoglobin Concent 31L, Red Cell Distribution Width 14.7H, Neutrophils (%) (Auto) 81H, Lymphocytes (%) (Auto) 10L, Neutrophils # (Auto) 9.5H, Chloride Level 94L, Carbon Dioxide Level 39H, Blood Urea Nitrogen 25H, Creatinine 1.37H, Glucose Level 242H 05/17/18 10:59: Glucometer 450*H 05/17/18 11:04: Glucometer 336H 05/17/18 16:22: Glucometer 275H 05/17/18 20:22: Glucometer 311H 05/18/18 05:30: Red Blood Count 3.32L, Hemoglobin 9.8L, Hematocrit 32L, Mean Corpuscular Hemoglobin Concent 31L, Red Cell Distribution Width 14.9H, Neutrophils (%) (Auto ) 76H, Lymphocytes (%) (Auto) 11L, Chloride Level 92L, Carbon Dioxide Level 42H , Blood Urea Nitrogen 21H 05/18/18 11:09: Glucometer 273H 05/18/18 16:37: Glucometer 323H 05/18/18 19:50: Glucometer 353H 05/19/18 05:42: Red Blood Count 3.31L, Hemoglobin 9.9L, Hematocrit 32L, Mean Corpuscular Hemoglobin Concent 31L, Red Cell Distribution Width 14.7H, Chloride Level 90L, Carbon Dioxide Level 42H, Blood Urea Nitrogen 24H, Creatinine 1.35H 05/19/18 11:22: Glucometer 305H Laboratory Tests 05/19/18 05:42 Physical Exam Vital Signs Vital Signs - First Documented 05/13/18 05/14/18 00:12 18:56 Temp 98.4 Pulse 77 Resp 18 B/P (MAP) 139/64 (89) Pulse Ox 95 O2 Delivery Nasal Cannula O2 Flow Rate 4.00 FiO2 36 Capillary Refill : Less Than 3 Seconds Height, Weight, BMI Height: 6'4.00" Weight: 224lbs. 6.0oz. 101.393807te; 25.7 BMI Method:Stated General Appearance: No Apparent Distress HEENT: PERRL/EOMI Respiratory: Chest Non Tender, No Accessory Muscle Use, No Respiratory Distress Cardiovascular: Regular Rate, Rhythm Gastrointestinal: Non Tender, Soft Neurologic/Psychiatric: Alert, Oriented x3 Impression & Plan Impression & Plan 1. Respiratory failure and pneumonia , improved, Off vent. Dr Scanlon and Dr Araya to decide the antibiotics and hospital course. Pt can be discharged from Hem/Onc point of view. 2. ? Pneumonitis from Opdivo immunotherapy. Pt is off steroid and continue improving. Possible home tomorrow. 3. 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 Pathology approved lung metastasis 04/29/17. Started Opdivo treatment 09-28-2017. CT scan 03-20-18 showed improvement. Last cycle #11 was given 04/23/2018. Because of #1 and #2 above, Pt needs rest and treatment break at least for a month. I will see him at cancer center on 06/16/18 2pm. I gave him f/u appointment card today. 4. Hypotensive, sepsis. Resolved. 5. Type II diabetes on insulin 6. Acute and on chronic renal insufficiency, improving 7. See me at Cancer center on 06/16/18. I have already given pt appointment card. Clinical Quality Measures DVT/VTE Risk/Contraindication: Risk Factor Score Per Nursin RFS Level Per Nursing on Admit: 4+=Very High Smoking Cessation Counseling: Counseling-Symptomatic: 3-10 Minutes Discussed Options Including: Nicotine Patch ARABELLA BILLY MD May 19, 2018 14:48
[2018-05-19 15:30] VITALS: BP 117/56
[2018-05-19] MEDS: BETHANECHOL 25 MG (URECHOLINE) TAB PO SCH ×2 (16:58→20:47)
[2018-05-19] MEDS: TAMSULOSIN 0.4 MG (FLOMAX) CAP PO SCH (16:58)
[2018-05-19 19:55] VITALS: BP 118/55
[2018-05-20 00:21] VITALS: BP 126/56
[2018-05-20] MEDS: RT-ALBUTEROL/IPRATROPIUM 3 ML (DUONEB) VIAL INH SCH ×6 (02:19→22:44)
[2018-05-20 04:00] VITALS: BP 135/64
[2018-05-20] MEDS: aCETylcysteine 20% (MUCOMYST) 30ML SOLN VIAL INH SCH ×3 (06:28→20:14)
[2018-05-20] MEDS: inSUlin ASPART (NovoLOG) 1 UNIT/0.01 ML (CHARGE PER UNIT) SC SCH ×4 (06:52→21:22)
[2018-05-20] MEDS: inSUlin DETERMIR 1 UNIT/0.01 ML (LEVEMIR) CHARGE PER UNIT SQ SCH ×2 (06:57→21:22)
[2018-05-20] MEDS: BETHANECHOL 25 MG (URECHOLINE) TAB PO SCH ×4 (06:57→21:22)
[2018-05-20] MEDS: KCL 10 MEQ TAB (MICRO K) PO SCH (06:57)
[2018-05-20] MEDS: oxyCODONE/APAP 7.5-325 MG (PERCOCET 7.5) TABLET PO PRN (07:00)
--- NOTE | 2018-05-20 07:12 | Pulmonary Progress Note ---
Subjective Date Seen by a Provider: May 20, 2018 Time Seen by a Provider: 07:17 Subjective/Events-last exam Patient reports that he is feeling well and ready for discharge today. His only concern is that he has some left hip pain that began a few days ago when someone wrapped his hip too tight. His hip is no longer wrapped, but he is experiencing residual discomfort. Sepsis Event Evaluation Height, Weight, BMI Height: 6'4.00" Weight: 215lbs. 6.4oz. 97.203781gg; 25.7 BMI Method:Stated Focused Exam Respiratory: Chest Non Tender, Lungs Clear, Normal Breath Sounds, No Accessory Muscle Use, No Respiratory Distress Cardiovascular: Regular Rate, Rhythm, No Murmur Skin: normal color, warm/dry Exam Exam Vital Signs Date Time Temp Pulse Resp B/P (MAP) Pulse Ox O2 Delivery O2 Flow Rate FiO2 05/20/18 06:28 95 Nasal Cannula 2.00 05/20/18 04:00 98.0 85 20 135/64 (87) 93 High Flow N/C 2.00 05/20/18 02:21 95 Nasal Cannula 2.00 05/20/18 00:21 98.3 87 18 126/56 (79) 94 High Flow N/C 2.00 05/19/18 22:22 92 Nasal Cannula 2.00 05/19/18 20:45 Nasal Cannula 2.00 05/19/18 19:55 98.9 95 20 118/55 (76) 92 High Flow N/C 2.00 05/19/18 18:30 97 Nasal Cannula 2.00 05/19/18 15:30 98.2 91 20 117/56 (76) 93 High Flow N/C 2.00 05/19/18 14:57 92 3.00 05/19/18 14:16 91 Nasal Cannula 3.00 05/19/18 12:00 98.5 75 18 163/79 (107) 98 High Flow N/C 3.00 05/19/18 11:13 90 Nasal Cannula 3.00 05/19/18 08:00 98.6 89 18 148/65 (92) 92 High Flow N/C 3.00 05/19/18 08:00 Nasal Cannula I & O 05/20/18 07:00 Intake Total 3280 ml Output Total 7345 ml Balance -4065 ml Height & Weight Height: 6'4.00" Weight: 215lbs. 6.4oz. 97.054938gb; 25.7 BMI Method:Stated General Appearance: No Apparent Distress, WD/WN HEENT: PERRL/EOMI Neck: Normal Inspection, Non Tender Respiratory: Chest Non Tender, Lungs Clear, Normal Breath Sounds, No Accessory Muscle Use, No Respiratory Distress, Other (on 2L nasal canula) Cardiovascular: Regular Rate, Rhythm, No Murmur Capillary Refill: Less Than 3 Seconds Gastrointestinal: non tender, soft Extremity: No Calf Tenderness, No Pedal Edema Neurologic/Psychiatric: Alert, Oriented x3 Skin: Normal Color, Warm/Dry Results Lab Laboratory Tests 05/19/18 05:42 Assessment/Plan Assessment/Plan Acute respiratory distress/failure - improving -Maintaining oxygenation with 2L via nasal canula -titrate as tolerated -home O2 test Pneumonia- resolving -F/u CXR in 6 weeks to ensure complete resolution Anemia -Monitor 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 Mcneil is following -Last Chemo 04/23 -nephrectomy 2017 CHRIS CRUZ MED STUDENT May 20, 2018 07:12
[2018-05-20 08:00] VITALS: BP 131/56
[2018-05-20] MEDS: GABAPENTIN 300 MG (NEURONTIN) CAP PO SCH ×3 (08:38→21:22)
[2018-05-20] MEDS: PANTOPRAZOLE 40 MG (PROTONIX) TAB PO SCH ×2 (08:38→21:22)
[2018-05-20] MEDS: FUROSEMIDE 20 MG (LASIX) TAB PO SCH (08:38)
[2018-05-20] MEDS: MICONAZOLE 2% POWDER (DESENEX AF) 90 GM TOP SCH ×2 (08:39→21:35)
--- NOTE | 2018-05-20 09:43 | Physical Therapy Daily Note ---
PT Daily Note-Current Subjective Patient reports he wants to go home today. Agrees to PT. Pain Numeric Pain Scale: 0-No Pain Location: No Pain Reported Mental Status Patient Orientation: Normal For Age Attachments: Oxygen, Valente Catheter Transfers Therapy Code Descriptions/Definitions Functional [place] Measure: 0=Not Assessed/NA 4=Minimal Assistance 1=Total Assistance 5=Supervision or Setup 2=Maximal Assistance 6=Modified [place] 3=Moderate Assistance 7=Complete [place] Therapy Quality Codes: 6 Independent with activity with or without an assistive device 5 Patient requires set up or clean up by helper. Patient completes activity by themselves 4 Supervision or touching assist (CGA). [place] provide cues , steadying assist 3 The helper provides less than half the effort to complete the activity 2 The helper provides more than half the effort to complete the activity 1 Dependent. The helper does all the effort to complete an activity 7 Patient refused to complete or attempt activity 9 The patient did not perform the activity before the current illness or injury 88 Not attempted due to Medical conditions or safety concerns Transfers (B, C, W/C) (FIM): 7 Scootin Sit to/from Stand: 7 Weight Bearing Right Lower Extremity: Right Full Weight Bearing Left Lower Extremity: Left Full Weight Bearing Gait Training Gait (FIM): 6 Distance (FIM): 3=150 ft Distance: >500' Gait Level of Assist: 6 Gait Assistive Device: FWW safe and functional with no deviation Assessment Patient is currently at modified independent to independent LOF with all gross motor skills and does not require continued skilled PT intervention. PT to dismiss patient from services and nursing staff to continue to ambulate with patient PRN. PT Detention Goals Detention Goals PT Filling Layer Up Goals Time Frame: May 21, 2018 Transfers (B,C,W/C) (FIM): 6 Gait (FIM): 6 Gait distance (FIM): 3=150 ft Distance: 300' Gait Level of Assist: 6 Gait Assistive Device: None, FWW Stairs (FIM): 5 # of Steps: 8 Stairs Level Of Assist: 5 PT Plan Treatment/Plan Treatment Plan: Discontinue PT, goals met Treatment Plan: Bed Mobility, Education, Functional Activity Deshawn, Functional Strength, Gait, Safety, Therapeutic Exercise, Transfers Treatment Duration: May 21, 2018 Frequency: 6 times per week Estimated Hrs Per Day: .25 hour per day Patient and/or Family Agrees t: Yes Time/GCodes Time In: 640 Time Out: 929 Total Billed Treatment Time: 9 Total Billed Treatment 1 visit FA 9 min SUE CONTRERAS PT May 20, 2018 09:43
--- NOTE | 2018-05-20 10:24 | Progress Note-Urology ---
Progress Note-Urology Progress Notes/Assess & Plan Progress/Assessment & Plan FAILED TOV AND PUENTE REINSERTED AND URECHOLINE 25 AC AND HS STARTED. PLAN TOV TODAY AND MANAGE PER ORDERS Final Diagnosis URINE RETENTION MELVIN HALEY MD May 20, 2018 10:24
[2018-05-20 11:31] VITALS: BP 132/61
--- NOTE | 2018-05-20 12:02 | Progress Note-Hospitalist ---
Subjective HPI/CC On Admission Date Seen by Provider: May 20, 2018 Time Seen by Provider: 11:55 Pt is a 62yoCM with a PMH of metastatic renal cell carcinoma, IDDMII, HTN who presented to the ER from [facility] who presented to the ER for hypoxia. He is currently intubated and sedated and unable to provide any history. Reportedly he was found to have sats in the 60s in the [facility] and sent to the ER. He was started on oxygen and responded to 4-5lpm via NC and was able to maintain his sats. He was found ot have bilateral pneumonia and was admitted to the floor. He continued to decompensate with confusion and was found to be hypercarbic. He was transferred to the unit and trialed on BiPAP but was unable to tolerate it and eventually could not no longer protect his airway. ER physician responded for emergent intubation. This morning his ABG has improved but he is now hypotensive and receiving fluid bolus. Subjective/Events-last exam Pt reports doing well. Valente removed today. Requesting DC home still. Objective Exam Vital Signs Vital Signs Date Time Temp Pulse Resp B/P (MAP) Pulse Ox O2 Delivery O2 Flow Rate FiO2 05/20/18 11:31 97.0 75 6 132/61 (84) 95 High Flow N/C 2.00 05/16/18 06:50 35 Capillary Refill : Less Than 3 Seconds General Appearance: No Apparent Distress, WD/WN Respiratory: Lungs Clear, No Respiratory Distress Cardiovascular: Regular Rate, Rhythm, No Murmur Neurologic/Psychiatric: Alert, Oriented x3 Results/Procedures Lab Patient resulted labs reviewed. Imaging: Reviewed Imaging Report Assessment/Plan Assessment and Plan Assess & Plan/Chief Complaint Acute Respiratory Failure Diagnosis/Problems Diagnosis/Problems (1) Acute respiratory failure Status: Acute Assessment & Plan: Extubated 05/10 Pulm consulted, appreciate recs likely due to pneumonia Still on 3lpm- home oxygen study showed 3lpm need 7L out yesterday Lasix decreased yesterday Qualifiers: Respiratory failure complication: hypoxia and hypercapnia Qualified Codes: J96.01 - Acute respiratory failure with hypoxia; J96.02 - Acute respiratory failure with hypercapnia (2) Septic shock Status: Resolved Assessment & Plan: Completed abx Resolution Date/Time: 05/19/18 @ 12:36 (3) Acute renal failure Status: Resolved Assessment & Plan: Acute on chronic kidney disease acute aspect resolved Qualifiers: Acute renal failure type: unspecified Qualified Codes: N17.9 - Acute kidney failure, unspecified Resolution Date/Time: 05/16/18 @ 12:02 (4) 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 Assessment & Plan: Follows with Dr Mcneil Consulted, appreciate recs Qualifiers: Laterality: unspecified laterality Qualified Codes: C78.00 - Secondary malignant neoplasm of unspecified lung; C64.9 - Malignant neoplasm of unspecified kidney, except renal pelvis (5) Insulin dependent diabetes mellitus Status: Chronic Assessment & Plan: Levemir 20 units BID and SSI (6) Essential (primary) hypertension Status: Chronic Assessment & Plan: BP well controlled (7) Bradycardia Status: Resolved Assessment & Plan: Resolved with discontinuation of precedex Cardiology consulted, appreciate recs Resolution Date/Time: 05/11/18 @ 09:12 Clinical Quality Measures DVT/VTE Risk/Contraindication: Risk Factor Score Per Nursin RFS Level Per Nursing on Admit: 4+=Very High Smoking Cessation Counseling: Counseling-Symptomatic: 3-10 Minutes Discussed Options Including: Nicotine Patch RYANNE DYSON MD May 20, 2018 12:02
[2018-05-20 15:50] VITALS: BP 122/56
[2018-05-20] MEDS: TAMSULOSIN 0.4 MG (FLOMAX) CAP PO SCH (18:24)
[2018-05-20 19:50] VITALS: BP 123/58
[2018-05-21 00:06] VITALS: BP 111/60
[2018-05-21] MEDS: RT-ALBUTEROL/IPRATROPIUM 3 ML (DUONEB) VIAL INH SCH ×3 (02:29→09:52)
[2018-05-21 04:09] VITALS: BP 120/64
[2018-05-21] MEDS: inSUlin DETERMIR 1 UNIT/0.01 ML (LEVEMIR) CHARGE PER UNIT SQ SCH (06:06)
[2018-05-21] MEDS: inSUlin ASPART (NovoLOG) 1 UNIT/0.01 ML (CHARGE PER UNIT) SC SCH ×2 (06:06→11:45)
[2018-05-21] MEDS: KCL 10 MEQ TAB (MICRO K) PO SCH (06:06)
[2018-05-21] MEDS: BETHANECHOL 25 MG (URECHOLINE) TAB PO SCH ×2 (06:06→10:50)
[2018-05-21] MEDS: oxyCODONE/APAP 7.5-325 MG (PERCOCET 7.5) TABLET PO PRN (06:11)
[2018-05-21] MEDS: aCETylcysteine 20% (MUCOMYST) 30ML SOLN VIAL INH SCH (06:46)
--- NOTE | 2018-05-21 07:02 | Pulmonary Progress Note ---
Subjective Date Seen by a Provider: May 21, 2018 Time Seen by a Provider: 07:08 Subjective/Events-last exam Patient reports he is feeling well. He is ready to go home. No SOB, still an occasional cough. Was having urinary retention but reports one void this morning since catheter was dc'd. Sepsis Event Evaluation Height, Weight, BMI Height: 6'4.00" Weight: 203lbs. 5.0oz. 92.866847qb; 25.7 BMI Method:Stated Focused Exam Respiratory: Chest Non Tender, Lungs Clear, No Accessory Muscle Use, No Respiratory Distress, Decreased Breath Sounds, Other (on 2L nc) Cardiovascular: Regular Rate, Rhythm, No Murmur Skin: normal color, warm/dry Exam Exam Vital Signs Date Time Temp Pulse Resp B/P (MAP) Pulse Ox O2 Delivery O2 Flow Rate FiO2 05/21/18 06:48 91 Nasal Cannula 2.00 05/21/18 04:09 98.3 88 18 120/64 (82) 95 High Flow N/C 2.00 05/21/18 02:29 91 Nasal Cannula 2.00 05/21/18 00:06 98.9 84 18 111/60 (77) 94 High Flow N/C 2.00 05/20/18 22:44 95 Nasal Cannula 2.00 05/20/18 20:15 91 Nasal Cannula 2.00 05/20/18 20:00 Nasal Cannula 2.00 05/20/18 19:50 98.8 88 20 123/58 (79) 91 High Flow N/C 2.00 05/20/18 15:50 98.3 77 18 122/56 (78) 92 High Flow N/C 2.00 05/20/18 13:58 93 Nasal Cannula 2.00 05/20/18 11:31 97.0 75 6 132/61 (84) 95 High Flow N/C 2.00 05/20/18 10:26 91 Nasal Cannula 2.00 05/20/18 08:00 98.7 99 16 131/56 (81) 92 High Flow N/C 2.00 05/20/18 08:00 Nasal Cannula 2.00 I & O 05/21/18 07:00 Intake Total 2500 ml Output Total 2825 ml Balance -325 ml Height & Weight Height: 6'4.00" Weight: 203lbs. 5.0oz. 92.465119bd; 25.7 BMI Method:Stated General Appearance: No Apparent Distress, WD/WN HEENT: PERRL/EOMI Neck: Normal Inspection, Non Tender Respiratory: Lungs Clear, No Accessory Muscle Use, No Respiratory Distress, Other (on 2L nc) Cardiovascular: Regular Rate, Rhythm, No Murmur Capillary Refill: Less Than 3 Seconds Gastrointestinal: non tender, soft Extremity: No Calf Tenderness, No Pedal Edema Neurologic/Psychiatric: Alert, Oriented x3 Skin: Normal Color, Warm/Dry Assessment/Plan Assessment/Plan Acute respiratory distress/failure - improving -Maintaining oxygenation 91-95 with 2L via nasal canula -home O2 test performed yesterday demonstrated need for 3 lpm Pneumonia- resolving -F/u CXR in 6 weeks to ensure complete resolution Anemia -Monitor 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 Mcneil is following -Last Chemo 04/23 -nephrectomy 2017 Urinary Retention -Urology consulted CHRIS CRUZ MED STUDENT May 21, 2018 07:02
[2018-05-21 08:00] VITALS: BP 130/58
[2018-05-21] MEDS: PANTOPRAZOLE 40 MG (PROTONIX) TAB PO SCH (09:08)
[2018-05-21] MEDS: FUROSEMIDE 20 MG (LASIX) TAB PO SCH (09:08)
[2018-05-21] MEDS: GABAPENTIN 300 MG (NEURONTIN) CAP PO SCH (09:09)
[2018-05-21] MEDS ORDERED: OXYC1TAB16 PO (09:10)
[2018-05-21] MEDS ORDERED: TAMS0.4C98 PO (09:10)
[2018-05-21] MEDS ORDERED: FURO20TA4 PO (09:10)
[2018-05-21] MEDS ORDERED: BETH25TA PO (09:10)
[2018-05-21] MEDS: MICONAZOLE 2% POWDER (DESENEX AF) 90 GM TOP SCH (09:12)
--- NOTE | 2018-05-21 09:46 | Discharge Summary-Hospitalist ---
Diagnosis/Chief Complaint Date of Admission May 07, 2018 at 18:06 Date of Discharge Admission Diagnosis Acute Respiratory Failure Discharge Diagnosis (1) Acute respiratory failure Status: Acute Assessment & Plan: Extubated 05/10 Pulm consulted, appreciate recs likely due to pneumonia Still on 3lpm- home oxygen study showed 3lpm need 7L out yesterday Lasix decreased yesterday (2) Septic shock Status: Resolved Assessment & Plan: Completed abx (3) Acute renal failure Status: Resolved Assessment & Plan: Acute on chronic kidney disease acute aspect resolved (4) 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 Assessment & Plan: Follows with Dr Mcneil Consulted, appreciate recs (5) Insulin dependent diabetes mellitus Status: Chronic Assessment & Plan: Levemir 20 units BID and SSI (6) Essential (primary) hypertension Status: Chronic Assessment & Plan: BP well controlled (7) Bradycardia Status: Resolved Assessment & Plan: Resolved with discontinuation of precedex Cardiology consulted, appreciate recs Discharge Summary Discharge Physical Exam Allergies: Coded Allergies: meperidine (Verified Allergy, Unknown, RASH, Pt has received Fentanyl w/o issue, 04/19/17) Vitals & I&Os Vital Signs Date Time Temp Pulse Resp B/P (MAP) Pulse Ox O2 Delivery O2 Flow Rate FiO2 05/21/18 08:00 99.0 98 20 130/58 (82) 94 High Flow N/C 2.00 05/16/18 06:50 35 Hospital Course Labs (last 24 hrs) Laboratory Tests 05/20/18 10:22: Glucometer 303H 05/20/18 15:53: Glucometer 217H 05/20/18 20:57: Glucometer 407*H 05/21/18 05:38: Glucometer 175H Microbiology 05/07/18 Blood Culture - Final, Complete No growth 05/09/18 MRSA Screen - Final, Complete MRSA not isolated Patient resulted labs reviewed. Pending Labs Laboratory Tests 05/21/18 05:38: Glucometer 175 Imaging: Reviewed Imaging Report Discharge Home Medications: Active Scripts Active Furosemide 20 Mg Tablet 40 Mg PO DAILY Percocet 7.5-325 mg Tablet (Oxycodone HCl/Acetaminophen) 1 Each Tablet 1 Each PO Q8HR PRN Flomax (Tamsulosin HCl) 0.4 Mg Cap 0.4 Mg PO DAILY@1800 Bethanechol Chloride 25 Mg Tablet 50 Mg PO ACHS Reported Levemir Flextouch (Insulin Detemir) 100 Unit/1 Ml Insuln.pen 20 Units SC HS Krill Oil 1,000 mg Softgel (Krill/Om-3/Dha/Epa/Phospho/Ast) 1 Each Capsule 1 Cap PO DAILY Magnesium (Magnesium Oxide) 400 Mg Tablet 400 Mg PO DAILY Potassium (Potassium Gluconate) 99 Mg Tablet 99 Mg PO DAILY Calcium 500 + Vit D 200 Caplet (Calcium Carbonate/Vitamin D3) 1 Each Tablet 1 Tab PO BID Ferosul (Ferrous Sulfate) 325 Mg Tablet 325 Mg PO BID Colestipol HCl 1 Gm Tablet 2 Gm PO BID TAKES 2 (1GM) TABLET Metformin HCl 500 Mg Tablet 500 Mg PO BID Glimepiride 4 Mg Tablet 4 Mg PO BID Lisinopril 20 Mg Tablet 20 Mg PO DAILY Gabapentin 300 Mg Capsule 300 Mg PO TID Vitamin C (Ascorbic Acid) 500 Mg Tablet 500 Mg PO DAILY Vitamin D3 (Cholecalciferol (Vitamin D3)) 2,000 Unit Capsule 2,000 Unit PO DAILY Lutein 20 Mg Tablet 40 Mg PO BID Vitamin E Beauty Oil (Flako AC/Safflower Oil) 52 Ml Oil TP BID APPLY TO SCARS Instructions to patient/family Please see electronic discharge instructions given to patient. Clinical Quality Measures DVT/VTE Risk/Contraindication: Risk Factor Score Per Nursin RFS Level Per Nursing on Admit: 4+=Very High Smoking Cessation Counseling: Counseling-Symptomatic: 3-10 Minutes Discussed Options Including: Nicotine Patch Problem Qualifiers (1) Acute respiratory failure: Respiratory failure complication: hypoxia and hypercapnia Qualified Codes: J96.01 - Acute respiratory failure with hypoxia; J96.02 - Acute respiratory failure with hypercapnia (2) Acute renal failure: Acute renal failure type: unspecified Qualified Codes: N17.9 - Acute kidney failure, unspecified (3) Metastatic renal cell carcinoma to lung: Laterality: unspecified laterality Qualified Codes: C78.00 - Secondary malignant neoplasm of unspecified lung; C64.9 - Malignant neoplasm of unspecified kidney, except renal pelvis RYANNE DYSON MD May 21, 2018 09:46
--- NOTE | 2018-05-21 10:21 | D/C HH Face to Face Order ---
D/C Face to Face Orders Instructions for Patient Via [facility], Patient Instructions/FollowUp: Please follow up with your physicians as recommended. Physician to follow Patient: Dr Nation Discharge Diet for Home: No Restrictions Patient Data-Allergies,Ht & Wt Patient Allergies: Coded Allergies: meperidine (Verified Allergy, Unknown, RASH, Pt has received Fentanyl w/o issue, 04/19/17) Height (Feet): 6 Height (Inches): 4.00 Weight (Pounds): 203 Weight (Ounces): 5.0 Home Health Need/Face to Face Date of Face to Face: May 21, 2018 Clinical Findings: Shortness of breath I have seen Pt [id number]: Yes Discharged To: Home Diagnosis/Conditions: Metastatic renal cell carinoma, respiratory failure, sepsis, urinary retention Patient is Homebound due to: Shortness of breath/distress (on continuous oxygen ) Homebound Status Due to the above stated illness, injury or surgical procedure (medical condition or diagnosis) and associated clinical findings, the patient is homebound because of his/her inability to leave home except with aid of a supportive device and/or person AND leaving the home requires a considerable and taxing effort or is medically contraindicated. Pt req the following assistanc: Aid of another person Home Health Nursing Orders Home Health Services Order: Nursing Services Straight cath supervision, med set up Home Health Infusion Therapy Line Start Date: May 08, 2018 Line Start Time: 1600 Line Type: PICC Site Location: Arm-Upper Certify Stmt I certify that this patient is under my care and that I, a nurse practitioner or a physician; a assistant professor of german working with me, had a face to face encounter that - meets the physician face to face encounter requirements with this patient as dated. RYANNE DYSON MD May 21, 2018 10:19
[2018-05-21] MEDS ORDERED: oxyCODONE/APAP 7.5-325 MG (PERCOCET 7.5) TABLET PO PRN (10:45)
[2018-05-21 12:00] VITALS: BP 119/59
[2018-05-21 14:02] VITALS: BP 119/59
== END 2018-05-21 12:57 | disposition home health service (06) | DRG 871 ==
LOC: EDUNIT# 16:40 → ER 16:41 → 4TH 18:06 → ICU 22:13 → 4TH 05-11 10:40
PROVIDERS: ADMIT Family Medicine; ATTEND Family Medicine
PROC: 5A1945Z Respiratory Ventilation, 24-96 Consecutive Hours (ICD-10-PCS; principal; 2018-05-07)
DX: A41.9 Sepsis, unspecified organism (principal); R65.21 Severe sepsis with septic shock; J18.9 Pneumonia, unspecified organism; J96.01 Acute respiratory failure with hypoxia; J96.02 Acute respiratory failure with hypercapnia; N17.9 Acute kidney failure, unspecified; C78.00 Secondary malignant neoplasm of unspecified lung; E87.4 Mixed disorder of acid-base balance; E87.2 Acidosis; J90 Pleural effusion, not elsewhere classified; I12.9 Hypertensive chronic kidney disease with stage 1 through stage 4 chronic kidney disease, or unspecified chronic kidney disease; N18.3 Chronic kidney disease, stage 3 (moderate); D64.9 Anemia, unspecified; E87.5 Hyperkalemia; F17.210 Nicotine dependence, cigarettes, uncomplicated; E11.9 Type 2 diabetes mellitus without complications; M19.91 Primary osteoarthritis, unspecified site; M54.9 Dorsalgia, unspecified; E83.52 Hypercalcemia; Z79.4 Long term (current) use of insulin; Z90.5 Acquired absence of kidney; Z85.528 Personal history of other malignant neoplasm of kidney; Z79.899 Other long term (current) drug therapy; Z92.21 Personal history of antineoplastic chemotherapy; R00.1 Bradycardia, unspecified; T38.0X5A Adverse effect of glucocorticoids and synthetic analogues, initial encounter; E87.6 Hypokalemia; N30.90 Cystitis, unspecified without hematuria; N50.89 Other specified disorders of the male genital organs; R33.9 Retention of urine, unspecified
CPT/HCPCS: 36415; 36569; 36600; 71045; 76937; 80048; 80053; 80202; 81000; 82040; 82274; 82330; 82805; 82962; 83605; 83735; 83880; 84100; 84484; 85007; 85014; 85018; 85025; 85027; 87040; 87070; 87081; 87205; 87449; 87804; 87899; 93005; 93041; 93306; 94003; 94640; 94668; 94760; 94761; 94799; 96361; 96365

== ENCOUNTER 2018-06-16 13:53 | Outpatient (RCR) | payer BC, OTHER ==
[2018-04-23 15:50] LABS: BASOPHILS % (AUTO) 0 % (0-10); EOSINOPHILS # (AUTO) 0.4 10^3/uL (0.0-0.3); EOSINOPHILS % (AUTO) 5 % (0-10); HEMATOCRIT 39 % (40-54); HEMOGLOBIN 12.1 G/DL (13.3-17.7); LYMPHOCYTES # (AUTO) 1.6 X 10^3 (1.0-4.0); LYMPHOCYTES % (AUTO) 23 % (12-44); MEAN CORPUSCULAR HEMOGLOBIN 30 PG (25-34); MEAN CORPUSCULAR HGB CONC 31 G/DL (32-36); MEAN CORPUSCULAR VOLUME 97 FL (80-99); MEAN PLATELET VOLUME 9.6 FL (7.4-10.4); MONOCYTES # (AUTO) 0.7 X 10^3 (0.0-1.0); MONOCYTES % (AUTO) 10 % (0-12); NEUTROPHILS # (AUTO) 4.3 X 10^3 (1.8-7.8); NEUTROPHILS % (AUTO) 62 % (42-75); PLATELET COUNT 205 10^3/uL (130-400); RED BLOOD COUNT 4.01 10^6/uL (4.35-5.85); RED CELL DISTRIBUTION WIDTH 13.8 % (10.0-14.5); WHITE BLOOD COUNT 6.9 10^3/uL (4.3-11.0)
[2018-04-23 16:17] LABS: ALBUMIN 4.1 GM/DL (3.2-4.5); BILIRUBIN,TOTAL 0.5 MG/DL (0.1-1.0); CALCIUM 9.6 MG/DL (8.5-10.1); CREATININE SERUM 1.42 MG/DL (0.60-1.30); POTASSIUM 5.9 MMOL/L (3.6-5.0); TOTAL PROTEIN 6.9 GM/DL (6.4-8.2)
[~2018-06-16] VITALS: Ht 188 cm; Wt 97.1 kg
[~2018-06-16 13:53] MED LIST changes: +BETH25TA PO; +FURO20TA4 PO; +INSU100I29 SC; +NIVOLUMAB 480 MG in NS (IVPB) CANCER CENTER 50 ML IV SCH; +NS (IVPB) CANCER CENTER 250 ML IV SCH; +OXYC1TAB16 PO; +TAMS0.4C98 PO
[2018-06-16 14:24] LABS: BASOPHILS % (AUTO) 0 % (0-10); EOSINOPHILS # (AUTO) 0.2 10^3/uL (0.0-0.3); EOSINOPHILS % (AUTO) 3 % (0-10); HEMATOCRIT 39 % (40-54); HEMOGLOBIN 12.2 G/DL (13.3-17.7); LYMPHOCYTES # (AUTO) 1.4 X 10^3 (1.0-4.0); LYMPHOCYTES % (AUTO) 16 % (12-44); MEAN CORPUSCULAR HEMOGLOBIN 30 PG (25-34); MEAN CORPUSCULAR HGB CONC 31 G/DL (32-36); MEAN CORPUSCULAR VOLUME 95 FL (80-99); MONOCYTES # (AUTO) 0.9 X 10^3 (0.0-1.0); MONOCYTES % (AUTO) 10 % (0-12); NEUTROPHILS # (AUTO) 6.5 X 10^3 (1.8-7.8); NEUTROPHILS % (AUTO) 72 % (42-75); PLATELET COUNT 216 10^3/uL (130-400); RED BLOOD COUNT 4.13 10^6/uL (4.35-5.85); RED CELL DISTRIBUTION WIDTH 14.8 % (10.0-14.5); WHITE BLOOD COUNT 9.1 10^3/uL (4.3-11.0)
[2018-06-16 14:52] LABS: BILIRUBIN,TOTAL 0.3 MG/DL (0.1-1.0); CALCIUM 9.2 MG/DL (8.5-10.1); CREATININE SERUM 1.3 MG/DL (0.60-1.30); MAGNESIUM 1.8 MG/DL (1.8-2.4); POTASSIUM 5.1 MMOL/L (3.6-5.0); TOTAL PROTEIN 6.7 GM/DL (6.4-8.2)
[2018-06-25] MEDS ORDERED: NIVOLUMAB 240 MG in NS (IVPB) CANCER CENTER 50 ML IV SCH (15:37)
== END 2018-06-25 15:37 | disposition home or self-care (01) ==
LOC: ONC 13:53
PROVIDERS: ATTEND Internal Medicine Hematology & Oncology
DX: Z51.11 Encounter for antineoplastic chemotherapy (principal); C64.9 Malignant neoplasm of unspecified kidney, except renal pelvis; C78.01 Secondary malignant neoplasm of right lung
CPT/HCPCS: 36415; 80053; 83735; 84443; 85025; 96413; 99213

== ENCOUNTER → 2018-06-18 | Outpatient (CLI) | payer BC ==
[~2018-06-18] MED LIST changes: +BARIUM SUSPENSION 2.1% (VANILLA SILQ) 450 ML PO ONE; +IOHEXOL 350 MG/ML 100 ML (OMNIPAQUE 350) VIAL IV ONE; -NIVOLUMAB 480 MG in NS (IVPB) CANCER CENTER 50 ML IV SCH; -NS (IVPB) CANCER CENTER 250 ML IV SCH; +NS 100 ML (IVPB) BAG IV ONE; +RECEIVED CONTRAST (Hold Metformin) IV SCH
--- NOTE | 2018-06-18 11:05 | Diagnostic Imaging Report ---
PROCEDURE: CT chest with contrast, CT abdomen and pelvis with and without contrast. TECHNIQUE: Pre and post intravenous contrast axial imaging of the abdomen and pelvis and post contrast axial imaging of the chest were performed. INDICATION: Renal cell carcinoma. COMPARISON: Comparison is made with prior CT from 03/21/2018. FINDINGS: CT CHEST: No axillary lymphadenopathy is seen. Paratracheal lymph node is stable at approximately 17 mm. There are small AP window nodes which appear stable. Subcarinal partially calcified node appears to be stable. The asael are unremarkable. No pericardial or pleural fluid is seen. Large hiatal hernia is again noted. Parenchymal evaluation again demonstrates centrilobular emphysematous changes. A superior segment left lower lobe nodule has increased in size measuring 13 mm compared with 7 mm. The nodule noted in the lingula continues to decrease in size, now measuring approximately 14 mm x 7 mm compared with 16 mm x 11 mm. No new mass is seen. There is some linear scarring or atelectasis in bilateral upper lobes. IMPRESSION: 1. Mixed findings, with decrease in size of a slightly lobulated nodule in the lingula. However, there has been increase in size of a nodule in the superior segment left lower lobe since prior exam from 03/21/2018. Mediastinal lymph nodes are stable. CT ABDOMEN AND PELVIS: No discrete liver mass is seen. Air in the biliary tree left lobe is again noted. Gallbladder surgically absent. Pancreas and spleen are unremarkable. No definite adrenal mass is identified. Left kidney is surgically absent. No mass in the left renal fossa is identified. The right kidney is unremarkable. Aorta is calcified but nonaneurysmal. No central retroperitoneal or mesenteric lymphadenopathy is seen. Bowel loops are normal caliber. There is diverticulosis of the sigmoid but no evidence of acute diverticulitis. No inguinal lymphadenopathy is seen. No definite iliac lymphadenopathy is seen. Bladder and prostate are unremarkable. Bony structures are nonacute. IMPRESSION: Stable CT of the abdomen and pelvis when compared with exam from 03/21/2018. Patient is status post nephrectomy. No residual or recurrent mass or evidence of abdominal or pelvic lymphadenopathy is seen. There is uncomplicated sigmoid diverticulosis. Dictated by: Dictated on workstation # [id number]
== END ==
LOC: RAD 09:06
PROVIDERS: ATTEND Internal Medicine Hematology & Oncology
DX: C78.01 Secondary malignant neoplasm of right lung (principal); C64.9 Malignant neoplasm of unspecified kidney, except renal pelvis; K57.30 Diverticulosis of large intestine without perforation or abscess without bleeding; Z90.5 Acquired absence of kidney; Z90.49 Acquired absence of other specified parts of digestive tract
CPT/HCPCS: 71260; 74178

== ENCOUNTER 2018-09-10 14:18 | Outpatient (RCR) | payer BC, OTHER ==
[2018-06-25 15:57] LABS: BASOPHILS % (AUTO) 0 % (0-10); EOSINOPHILS # (AUTO) 0.1 10^3/uL (0.0-0.3); EOSINOPHILS % (AUTO) 2 % (0-10); HEMATOCRIT 36 % (40-54); HEMOGLOBIN 11.3 G/DL (13.3-17.7); LYMPHOCYTES # (AUTO) 1.3 X 10^3 (1.0-4.0); LYMPHOCYTES % (AUTO) 21 % (12-44); MEAN CORPUSCULAR HEMOGLOBIN 29 PG (25-34); MEAN CORPUSCULAR HGB CONC 31 G/DL (32-36); MEAN CORPUSCULAR VOLUME 93 FL (80-99); MEAN PLATELET VOLUME 9.8 FL (7.4-10.4); MONOCYTES % (AUTO) 16 % (0-12); NEUTROPHILS # (AUTO) 3.7 X 10^3 (1.8-7.8); NEUTROPHILS % (AUTO) 61 % (42-75); PLATELET COUNT 212 10^3/uL (130-400); RED CELL DISTRIBUTION WIDTH 14.9 % (10.0-14.5)
[2018-06-25 16:15] LABS: ALBUMIN 3.9 GM/DL (3.2-4.5); BILIRUBIN,TOTAL 0.5 MG/DL (0.1-1.0); CALCIUM 9.7 MG/DL (8.5-10.1); CREATININE SERUM 1.46 MG/DL (0.60-1.30); POTASSIUM 5.7 MMOL/L (3.6-5.0); TOTAL PROTEIN 6.7 GM/DL (6.4-8.2)
[2018-07-10 15:26] LABS: BASOPHILS % (AUTO) 0 % (0-10); EOSINOPHILS # (AUTO) 0.2 10^3/uL (0.0-0.3); EOSINOPHILS % (AUTO) 2 % (0-10); HEMATOCRIT 36 % (40-54); HEMOGLOBIN 11.3 G/DL (13.3-17.7); LYMPHOCYTES # (AUTO) 1.7 X 10^3 (1.0-4.0); LYMPHOCYTES % (AUTO) 20 % (12-44); MEAN CORPUSCULAR HEMOGLOBIN 29 PG (25-34); MEAN CORPUSCULAR HGB CONC 32 G/DL (32-36); MEAN CORPUSCULAR VOLUME 92 FL (80-99); MEAN PLATELET VOLUME 9.9 FL (7.4-10.4); MONOCYTES # (AUTO) 0.8 X 10^3 (0.0-1.0); MONOCYTES % (AUTO) 10 % (0-12); NEUTROPHILS # (AUTO) 5.7 X 10^3 (1.8-7.8); NEUTROPHILS % (AUTO) 68 % (42-75); PLATELET COUNT 261 10^3/uL (130-400); RED CELL DISTRIBUTION WIDTH 15.1 % (10.0-14.5); WHITE BLOOD COUNT 8.3 10^3/uL (4.3-11.0)
[2018-07-10 16:33] LABS: ALANINE AMINOTRANSFERASE 18 U/L (0-55); ALBUMIN 3.9 GM/DL (3.2-4.5); ALKALINE PHOSPHATASE 56 U/L (40-136); BILIRUBIN,TOTAL 0.7 MG/DL (0.1-1.0); BUN/CREATININE RATIO 14; CALCIUM 9.2 MG/DL (8.5-10.1); CARBON DIOXIDE 25 MMOL/L (21-32); CHLORIDE 106 MMOL/L (98-107); CREATININE SERUM 1.19 MG/DL (0.60-1.30); GFR ESTIMATED > 60; GLUCOSE 122 MG/DL (70-105); POTASSIUM 4.6 MMOL/L (3.6-5.0); SODIUM 140 MMOL/L (135-145); TOTAL PROTEIN 6.3 GM/DL (6.4-8.2)
[2018-08-06 15:32] LABS: BASOPHILS % (AUTO) 0 % (0-10); EOSINOPHILS # (AUTO) 0.2 10^3/uL (0.0-0.3); EOSINOPHILS % (AUTO) 2 % (0-10); HEMATOCRIT 32 % (40-54); HEMOGLOBIN 9.9 G/DL (13.3-17.7); LYMPHOCYTES # (AUTO) 1.7 X 10^3 (1.0-4.0); LYMPHOCYTES % (AUTO) 23 % (12-44); MEAN CORPUSCULAR HEMOGLOBIN 29 PG (25-34); MEAN CORPUSCULAR HGB CONC 31 G/DL (32-36); MEAN CORPUSCULAR VOLUME 96 FL (80-99); MEAN PLATELET VOLUME 9.9 FL (7.4-10.4); MONOCYTES # (AUTO) 0.6 X 10^3 (0.0-1.0); MONOCYTES % (AUTO) 8 % (0-12); NEUTROPHILS # (AUTO) 4.9 X 10^3 (1.8-7.8); NEUTROPHILS % (AUTO) 67 % (42-75); PLATELET COUNT 289 10^3/uL (130-400); RED CELL DISTRIBUTION WIDTH 14.9 % (10.0-14.5); WHITE BLOOD COUNT 7.4 10^3/uL (4.3-11.0)
[2018-08-06 16:02] LABS: ALBUMIN 4.1 GM/DL (3.2-4.5); BILIRUBIN,TOTAL 0.5 MG/DL (0.1-1.0); CALCIUM 10.1 MG/DL (8.5-10.1); CREATININE SERUM 1.5 MG/DL (0.60-1.30); POTASSIUM 4.9 MMOL/L (3.6-5.0); TOTAL PROTEIN 6.4 GM/DL (6.4-8.2)
[2018-08-20 15:31] LABS: BASOPHILS % (AUTO) 0 % (0-10); EOSINOPHILS # (AUTO) 0.3 10^3/uL (0.0-0.3); EOSINOPHILS % (AUTO) 4 % (0-10); HEMATOCRIT 35 % (40-54); HEMOGLOBIN 10.8 G/DL (13.3-17.7); LYMPHOCYTES # (AUTO) 1.8 X 10^3 (1.0-4.0); LYMPHOCYTES % (AUTO) 25 % (12-44); MEAN CORPUSCULAR HEMOGLOBIN 30 PG (25-34); MEAN CORPUSCULAR HGB CONC 31 G/DL (32-36); MEAN CORPUSCULAR VOLUME 96 FL (80-99); MEAN PLATELET VOLUME 9.5 FL (7.4-10.4); MONOCYTES # (AUTO) 0.7 X 10^3 (0.0-1.0); MONOCYTES % (AUTO) 11 % (0-12); NEUTROPHILS # (AUTO) 4.2 X 10^3 (1.8-7.8); NEUTROPHILS % (AUTO) 60 % (42-75); PLATELET COUNT 236 10^3/uL (130-400); RED CELL DISTRIBUTION WIDTH 14.8 % (10.0-14.5)
[2018-08-20 15:55] LABS: ALBUMIN 4.2 GM/DL (3.2-4.5); BILIRUBIN,TOTAL 0.5 MG/DL (0.1-1.0); CALCIUM 10.3 MG/DL (8.5-10.1); CREATININE SERUM 1.47 MG/DL (0.60-1.30); POTASSIUM 4.9 MMOL/L (3.6-5.0); TOTAL PROTEIN 6.8 GM/DL (6.4-8.2)
[~2018-09-10] VITALS: Ht 188 cm; Wt 97.1 kg
[~2018-09-10 14:18] MED LIST changes: -BARIUM SUSPENSION 2.1% (VANILLA SILQ) 450 ML PO ONE; -IOHEXOL 350 MG/ML 100 ML (OMNIPAQUE 350) VIAL IV ONE; +NIVOLUMAB 240 MG in NS (IVPB) CANCER CENTER 50 ML IV SCH; +NS (IVPB) CANCER CENTER 250 ML IV SCH; -NS 100 ML (IVPB) BAG IV ONE; -RECEIVED CONTRAST (Hold Metformin) IV SCH
== END 2018-09-23 | disposition home or self-care (01) ==
LOC: ONC 14:18
PROVIDERS: ATTEND Internal Medicine Hematology & Oncology
DX: Z51.11 Encounter for antineoplastic chemotherapy (principal); C78.01 Secondary malignant neoplasm of right lung; Z85.528 Personal history of other malignant neoplasm of kidney; Z51.81 Encounter for therapeutic drug level monitoring; Z90.5 Acquired absence of kidney
CPT/HCPCS: 36415; 80053; 85025; 96413; 99213

== ENCOUNTER 2018-12-15 06:22 | Outpatient (CLI) | payer BC ==
[~2018-12-15] VITALS: Ht 193 cm; Wt 92.2 kg
[~2018-12-15 06:22] MED LIST changes: -NIVOLUMAB 240 MG in NS (IVPB) CANCER CENTER 50 ML IV SCH; -NS (IVPB) CANCER CENTER 250 ML IV SCH
[2018-12-15] MEDS ORDERED: LACT1CAP64 PO (10:02)
[2018-12-15] MEDS ORDERED: HYDR-3812 PO (10:02)
== END 2018-12-15 12:53 | disposition home or self-care (01) ==
LOC: PREOP 06:22
PROVIDERS: ATTEND Otolaryngology Otolaryngology/Facial Plastic Surgery
DX: Z01.818 Encounter for other preprocedural examination (principal)

== ENCOUNTER 2018-12-19 07:49 | Day surgery (SDC) | payer BC ==
[2018-12-19] VITALS (9 sets, daily range): BP systolic 107–124; BP diastolic 57–68
[~2018-12-19] VITALS: Ht 193 cm; Wt 92.2 kg
[~2018-12-19 07:49] MED LIST changes: +HYDR-3812 PO; +LACT1CAP64 PO
[2018-12-19] MEDS ORDERED: LACTATED RINGERS 1,000 ML IV PRN (08:25)
--- NOTE | 2018-12-19 08:43 | Progress Note-Pre Operative ---
Pre-Operative Progress Note H&P Reviewed The H&P was reviewed, patient examined and no changes noted. Date Seen by Provider: Dec 19, 2018 Time Seen by Provider: 08:30 Date H&P Reviewed: Dec 19, 2018 Time H&P Reviewed: 08:30 Pre-Operative Diagnosis: JAROD Ross MD Dec 19, 2018 08:43
[2018-12-19 08:46] LABS: BASOPHILS % (AUTO) 0 % (0-10); EOSINOPHILS # (AUTO) 0.4 10^3/uL (0.0-0.3); EOSINOPHILS % (AUTO) 5 % (0-10); HEMATOCRIT 40 % (40-54); HEMOGLOBIN 12.6 G/DL (13.3-17.7); LYMPHOCYTES # (AUTO) 1.6 X 10^3 (1.0-4.0); LYMPHOCYTES % (AUTO) 21 % (12-44); MEAN CORPUSCULAR HEMOGLOBIN 30 PG (25-34); MEAN CORPUSCULAR HGB CONC 31 G/DL (32-36); MEAN CORPUSCULAR VOLUME 95 FL (80-99); MEAN PLATELET VOLUME 9.9 FL (7.4-10.4); MONOCYTES # (AUTO) 0.9 X 10^3 (0.0-1.0); MONOCYTES % (AUTO) 11 % (0-12); NEUTROPHILS # (AUTO) 4.8 X 10^3 (1.8-7.8); NEUTROPHILS % (AUTO) 62 % (42-75); PLATELET COUNT 228 10^3/uL (130-400); RED CELL DISTRIBUTION WIDTH 14.6 % (10.0-14.5); WHITE BLOOD COUNT 7.7 10^3/uL (4.3-11.0)
[2018-12-19 09:10] LABS: CALCIUM 9.7 MG/DL (8.5-10.1); CREATININE SERUM 1.3 MG/DL (0.60-1.30); POTASSIUM 5.7 MMOL/L (3.6-5.0)
[2018-12-19] MEDS ORDERED: SEVOFLURANE (ULTANE) 15 ML INHAL SOLN ONE (09:44)
[2018-12-19] MEDS ORDERED: proPOfol 200 MG/20 ML (DIPRIVAN) VIAL IV ONE (09:44)
[2018-12-19] MEDS ORDERED: ONDANSETRON 4 MG/2 ML (SDV) Z0FRAN ONE (09:44)
[2018-12-19] MEDS ORDERED: MIDAZOLAM 2 MG/2 ML (VERSED) VIAL ONE (09:44)
[2018-12-19] MEDS ORDERED: LIDOCAINE PF 2% 5 ML (XYLOCAINE) VIAL ONE (09:44)
[2018-12-19] MEDS ORDERED: fentaNYL INJECTION 100 MCG/2 ML AMP ONE (09:44)
--- NOTE | 2018-12-19 10:27 | Progress Note-Post Operative ---
Post-Operative Progess Note Surgeon (s)/Community Affairs Director (s) Surgeon JAROD HEREDIA MD Community Affairs Director n/a Pre-Operative Diagnosis Bilat ELOISA Post-Operative Diagnosis same Post-Op Procedure Note Date of Procedure: Dec 19, 2018 Name of Procedure Performed: BMT Description & Findings Description and Findings: n/a Anesthesia Type lma Estimated Blood Loss minimal Packing none. Specimen(s) collected/removed none JAROD HEREDIA MD Dec 19, 2018 10:27
[2018-12-19] MEDS ORDERED: APAP 325 MG/10.15 ML LIQ (TYLENOL) UDC PO PRN (10:30)
[2018-12-19] MEDS ORDERED: ONDANSETRON 4 MG/2 ML (SDV) Z0FRAN IVP PRN (10:45)
[2018-12-19] MEDS ORDERED: morphine INJ 10 MG/ML 1ML (SYR OR VIAL) IVP ONE (10:45)
[2018-12-19] MEDS ORDERED: GARAMYCIN OPTH EACH EAR (12:12)
--- NOTE | 2018-12-19 12:59 | Anesthesia-General Post-Op ---
General Patient Condition Mental Status/LOC: Same as Preop Cardiovascular: Satisfactory Nausea/Vomiting: Absent Respiratory: Satisfactory Pain: Controlled Complications: Absent Post Op Complications Complications None Follow Up Care/Instructions Patient Instructions None needed. Anesthesia/Patient Condition Patient Condition Patient is doing well, no complaints, stable vital signs, no apparent adverse anesthesia problems. No complications reported per nursing. JESSE HUITRON CRNA Dec 19, 2018 12:59
--- OUTSIDE RECORDS SUMMARY | 2018-12-19 18:01 | XMS REPORT | Clinical Summary ---
Author Author [facility] Organization [facility] Address Unknown Phone Unavailable Care Team Providers Care Admiralty Lawyer Name Role Phone Silver Nation MD PCP Source Comments Some departments are not documenting in the electronic medical record. If you d o not see the information that you expected, contact Release of Information in [facility] [employer] Information Management department at [phone] for further assistan ce in locating additional records.[facility] Allergies No Known Allergies Medications End Date Status Medication Sig Dispensed Refills Start Date Active glimepiride (AMARYL) 4 mg Take 4 mg by 0 tablet mouth twice daily with meals. Active colestipol (COLESTID) 1 Take 2 g by 0 gram tablet mouth twice daily. Active vitamins, B complex tab Take 1 Tab by 0 mouth daily. Active cholecalciferol (VITAMIN Take 1,000 0 D-3) 1,000 units tablet Units by mouth daily. Active GINKGO BILOBA (GINKOBA Take 2 Tabs 0 PO) by mouth daily. Active metFORMIN (GLUCOPHAGE) Take 500 mg 0 500 mg tablet by mouth twice daily with meals. Active insulin glargine (LANTUS Inject 20 0 SOLOSTAR) 100 unit/mL (3 Units under mL) injection PEN the skin at bedtime daily. Active lisinopril (PRINIVIL; Take 20 mg by 0 ZESTRIL) 20 mg tablet mouth daily. Active naproxen sodium(+) Take 2 Tabs 0 (ALEVE) 220 mg tablet by mouth twice daily. Take with food. Active calcium carbonate/vitamin Take 2 Tabs 0 D-3 (OSCAL-500+D) 1250 by mouth mg/200 unit tablet daily. Calcium Carb 1250mg delivers 500mg elemental Ca Active other medication 1 Dose. Focus 0 factor 1 capsule daily. Active Wqofo-[id number]-[id number]-OM6-Lip Take 1 Cap by 0 -Astx (KRILL OIL) mouth daily. 1000-130(40-80) mg cap Active Lutein 20 mg cap Take 1 Cap by 0 mouth daily. Active Potassium 99 mg tab Take 1 Tab by 0 mouth daily. Active turmeric root extract 500 Take 1 Cap by 0 mg cap mouth twice daily. Active Magnesium 250 mg tab Take 250 mg 0 by mouth daily. Active oxyCODONE/acetaminophen Take 1 tablet 40 tablet 0 (ENDOCET) 5/325 mg tablet by mouth 7 every 4 hours as needed for Pain Earliest Fill Date: 01/13/17 Active senna/docusate Take 1 tablet 15 tablet 0 (SENOKOT-S) 8.6/50 mg by mouth 7 tablet daily. Active GABAPENTIN (BULK) MISC Use as 0 directed. Active pazopanib (VOTRIENT) 200 Take 800 mg 0 mg tablet by mouth daily. Take on an empty stomach, at least 1 hour before and 2 hours after food. Active Problems Problem Noted Date Renal cell cancer 12/11/2016 Overview: Incidentally detected on spine MRI September 2016. [id number] mass. 1.1cm right lower lobe lung nodule along with slightly enlarged right hilar and infracarinal lymph nodes. Asymptomatic. 50 pack-year history of smoking 01/10/17: Left radical nephrectomy final pathology [id number] clear cell renal cell carcinoma WHO/ISUP grade 4, 9/9 nodes negative. Margins negative. 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 06/07/17: Large left lower lobe lung nodule biopsied as RCC by medical oncology at [facility] and is scheduled to start Pazopanib soon. L ast Assessment & Plan: 61 year old male s/p radical left nephrectomy 01/10/17 final pathology [id number] clear cell renal cell carcinoma with current [...] Comments Father Mother Alive Other Social History Date Tobacco Use Types Packs/Day Years Used Current Every Day Smoker Cigarettes 1 50 Smokeless Tobacco: Never Used Tobacco Cessation: Ready to Quit: Yes Drinks/Week oz/Week Comments Alcohol Use No Sex Assigned at Date Recorded Not on file Industry Job Start Date Occupation Not on file Not on file Not on file Travel End Travel History Travel Start No recent travel history available. Last Filed Vital Signs Reading Time Taken Comments Vital Sign 143/70 06/07/2017 10:49 AM [employer] Blood Pressure 70 06/07/2017 10:49 AM [employer] Pulse 36.9 C (98.4 F) 03/01/2017 12:20 PM CDT Temperature 18 03/01/2017 12:20 PM CDT Respiratory Rate 94% 03/01/2017 12:20 PM CDT Oxygen Saturation - - Inhaled Oxygen Concentration 94.3 kg (208 lb) 06/07/2017 10:49 AM [employer] Weight 193 cm (6' 4") 06/07/2017 10:49 AM [employer] Height 25.32 06/07/2017 10:49 AM [employer] Body Mass Index Plan of Treatment Health Maintenance Due Date Last Done Comments HEPATITIS C SCREENING 1955 PHYSICAL (COMPREHENSIVE) 1962 EXAM HIV SCREENING 1970 DTAP/TDAP VACCINES (1 - 1973 Tdap) COLORECTAL CANCER 2005 SCREENING SHINGLES RECOMBINANT 2005 VACCINE (1 of 2) INFLUENZA VACCINE 03/03/2019 06/12/2013 Results Not on filefrom Last 3 Months Insurance Type Payer Benefit Subscriber ID Effective Phone Address Plan / Dates Group PPO BCBS [employer] xxxxxxxxxxxx 2016-P OUT OF resent STATE Advance Directives Patient Advanced [employer] Programs Director Explanation Type Date Recorded Advance 12/11/2016 4:24 PM Directive/DPOA Date Inactivated Comments Code Status Date Activated 01/13/2017 7:57 PM Full Code 01/10/2017 5:03 PM Provider has discussed Code Status Yes w/Patient or Family?
== END 2018-12-19 12:50 | disposition home or self-care (01) ==
LOC: SDC 07:49
PROVIDERS: ATTEND Otolaryngology Otolaryngology/Facial Plastic Surgery
DX: H65.23 Chronic serous otitis media, bilateral (principal); H90.6 Mixed conductive and sensorineural hearing loss, bilateral; E11.9 Type 2 diabetes mellitus without complications; I10 Essential (primary) hypertension; J40 Bronchitis, not specified as acute or chronic; M19.91 Primary osteoarthritis, unspecified site; M54.9 Dorsalgia, unspecified; Z85.528 Personal history of other malignant neoplasm of kidney; Z85.118 Personal history of other malignant neoplasm of bronchus and lung; Z96.653 Presence of artificial knee joint, bilateral; Z90.5 Acquired absence of kidney; Z79.4 Long term (current) use of insulin; Z79.899 Other long term (current) drug therapy; Z11.2 Encounter for screening for other bacterial diseases
CPT/HCPCS: 36415; 80048; 82962; 85025; 87081

== ENCOUNTER 2018-12-26 14:23 | Outpatient (RCR) | payer BC, OTHER ==
[2018-12-24 15:57] LABS: BASOPHILS % (AUTO) 0 % (0-10); EOSINOPHILS # (AUTO) 0.3 10^3/uL (0.0-0.3); EOSINOPHILS % (AUTO) 4 % (0-10); HEMATOCRIT 38 % (40-54); HEMOGLOBIN 11.9 G/DL (13.3-17.7); LYMPHOCYTES # (AUTO) 1.6 X 10^3 (1.0-4.0); LYMPHOCYTES % (AUTO) 20 % (12-44); MEAN CORPUSCULAR HEMOGLOBIN 29 PG (25-34); MEAN CORPUSCULAR HGB CONC 31 G/DL (32-36); MEAN CORPUSCULAR VOLUME 94 FL (80-99); MEAN PLATELET VOLUME 9.9 FL (7.4-10.4); MONOCYTES # (AUTO) 0.7 X 10^3 (0.0-1.0); MONOCYTES % (AUTO) 9 % (0-12); NEUTROPHILS # (AUTO) 5.1 X 10^3 (1.8-7.8); NEUTROPHILS % (AUTO) 66 % (42-75); PLATELET COUNT 221 10^3/uL (130-400); RED CELL DISTRIBUTION WIDTH 14.5 % (10.0-14.5); WHITE BLOOD COUNT 7.7 10^3/uL (4.3-11.0)
[2018-12-24 16:05] LABS: ALBUMIN 4.2 GM/DL (3.2-4.5); BILIRUBIN,TOTAL 0.4 MG/DL (0.1-1.0); CALCIUM 10.3 MG/DL (8.5-10.1); CREATININE SERUM 1.54 MG/DL (0.60-1.30); TOTAL PROTEIN 6.7 GM/DL (6.4-8.2)
[~2018-12-26 14:23] MED LIST changes: +GARAMYCIN OPTH EACH EAR; +NIVOLUMAB 240 MG in NS (IVPB) CANCER CENTER 50 ML IV SCH; +NS (IVPB) CANCER CENTER 250 ML IV SCH; +NS IV 1000 ML (CANCER CTR) 1,000 ML ONE
[2018-12-26] MEDS ORDERED: NS IV 1000 ML (CANCER CTR) 1,000 ML ONE (15:18)
[2018-12-26 16:00] LABS: CREATININE SERUM 1.41 MG/DL (0.60-1.30); POTASSIUM 5.2 MMOL/L (3.6-5.0)
[2018-12-27] MEDS ORDERED: FAMO-119 PO (17:22)
[2018-12-27] MEDS ORDERED: PRD20T PO (17:22)
== END 2019-01-01 09:15 | disposition home or self-care (01) ==
LOC: ONC 14:23
PROVIDERS: ATTEND Internal Medicine Hematology & Oncology
DX: Z51.11 Encounter for antineoplastic chemotherapy (principal); C78.01 Secondary malignant neoplasm of right lung; Z85.528 Personal history of other malignant neoplasm of kidney; Z51.81 Encounter for therapeutic drug level monitoring; Z90.5 Acquired absence of kidney
CPT/HCPCS: 36415; 80048; 80053; 85025; 96360; 96413

== ENCOUNTER 2018-12-27 16:44 | Emergency (ER) | payer BC ==
[~2018-12-27] VITALS: Ht 193 cm; Wt 92.2 kg
[~2018-12-27 16:44] MED LIST changes: -NIVOLUMAB 240 MG in NS (IVPB) CANCER CENTER 50 ML IV SCH; -NS (IVPB) CANCER CENTER 250 ML IV SCH; -NS IV 1000 ML (CANCER CTR) 1,000 ML ONE
--- NOTE | 2018-12-27 17:10 | ED Integumentary General ---
General Chief Complaint: Bite-Animal/Human/Insect Stated Complaint: WASP STING Nursing Triage Note: PT WAS STUNG BY A WASP AT APPROX 1500. PT DENIES DIFFICULTY BREATHING. PT UNAWARE OF LAST TDAP SHOT. PT STATES HE REMOVED THE WASPS STINGER. SWELLING NOTED TO RIGHT HAND. Source: patient Exam Limitations: no limitations History of Present Illness Date Seen by Provider: Dec 27, 2018 Time Seen by Provider: 17:10 Initial Comments 63 yo male patient presents for c/o a wasp sting to the right hand at 1500. Patient denies taking any medications at home. swelling and pain to the right hand. Location Injury Occurred: home Timing/Duration: this afternoon Location: hands (rt hand) Possible Cause: insect sting Modifying Factors: worse with other (worse with palpation) Allergies and Home Medications Allergies Coded Allergies: meperidine (Verified Allergy, Mild, RASH, Pt has received Fentanyl w/o issue, 12/15/18) Home Medications Ascorbic Acid 500 Mg Tablet, 500 MG PO DAILY, (Reported) Calcium Carbonate/Vitamin D3 1 Each Tablet, 1 TAB PO BID, (Reported) Cholecalciferol (Vitamin D3) 2,000 Unit Capsule, 2,000 UNIT PO DAILY, (Reported) Colestipol HCl 1 Gm Tablet, 2 GM PO BID, (Reported) TAKES 2 (1GM) TABLET Ferrous Sulfate 325 Mg Tablet, 325 MG PO BID, (Reported) Gabapentin 300 Mg Capsule, 300 MG PO TID, (Reported) Glimepiride 4 Mg Tablet, 4 MG PO BID, (Reported) Hydrocodone/Acetaminophen 1 Each Tablet, 1 TAB PO Q4-6HR PRN for PAIN-MODERATE, (Reported) Insulin Detemir 100 Unit/1 Ml Insuln.pen, 20 UNITS SC HS, (Reported) Krill/Om-3/Dha/Epa/Phospho/Ast 1 Each Capsule, 1 CAP PO DAILY, (Reported) Lactobacillus Combo No.11 1 Each Cap.sprink, 1 EACH PO DAILY, (Reported) Lisinopril 20 Mg Tablet, 20 MG PO DAILY, (Reported) Lutein 20 Mg Tablet, 40 MG PO BID, (Reported) Magnesium Oxide 400 Mg Tablet, 400 MG PO DAILY, (Reported) Metformin HCl 500 Mg Tablet, 500 MG PO BID, (Reported) Flako AC/Safflower Oil 52 Ml Oil, TP BID, (Reported) APPLY TO SCARS [Garamycin Opth] , 3 DROPS EACH EAR BID Prescribed by: NOHEMY MILLAN on 12/19/18 1212 Patient Home Medication List Home Medication List Reviewed: Yes Review of Systems Review of Systems Constitutional: No chills, No dizziness, No fever, No malaise EENTM: No ear pain, No tearing, No mouth swelling, No nose congestion, No throat pain, No throat swelling Respiratory: No cough, No short of breath, No stridor, No wheezing Cardiovascular: No chest pain, No edema, No palpitations Gastrointestinal: No nausea, No vomiting Musculoskeletal: see HPI Skin: see HPI Psychiatric/Neurological: Denies Headache All Other Systems Reviewed Negative Unless Noted: Yes (Negative excepted noted.) Past Gqhfwia-Eiobpb-Vewquf Hx Past Med/Social Hx: Reviewed Nursing Past Med/Soc Hx Patient Social History Alcohol Use: Denies Use Recreational Drug Use: No Type Used: Cigarettes 2nd Hand Smoke Exposure: Yes Recent Foreign Travel: No Contact w/Someone Who Travel: No Recent Infectious Disease Expo: No Recent Hopitalizations: No Physical Abuse: No Sexual Abuse: No Immunizations Up To Date Tetanus Booster (TDap): More than 5yrs Date of Pneumonia Vaccine: Sep 08, 2014 Date of Influenza Vaccine: Mar 03, 2018 Seasonal Allergies Seasonal Allergies: No Past Medical History Surgeries: Yes (BILAT TKR, BMT, HERNIA X2) Abdominal, Ear Surgery, Eye Surgery, Gallbladder, Joint Replacement, Nephrectomy Respiratory: Yes (LUNG BIOPSY/PNEUMOTHORAX; LUNG CANCER) Pneumonia, Chronic Bronchitis Currently Using CPAP: No Currently Using BIPAP: No Cardiac: Yes Hypertension Neurological: No Reproductive Disorders: No HIV/AIDS: No Genitourinary: Yes (RENAL CANCER--LEFT NEPHRECTOMY) Gastrointestinal: Yes Chronic Diarrhea, Polyps Musculoskeletal: Yes (FX LEG, COLLAR BONE, RIBS, FOOT; OSTEOARTHRITIS KNEES) Degenerate Disk Disease, Arthritis, Chronic Back Pain Endocrine: Yes Diabetes, Insulin dep HEENT: Yes (GLASSES, PARTIAL ) Cataract Loss of Vision: Denies Hearing Impairment: Hard of Hearing Cancer: Yes Lung, Kidney Did You Recieve Any Treatments: Yes What Type of Treatment Did You: Chemotherapy, Surgical Intervention Psychosocial: No Integumentary: No Blood Disorders: No Adverse Reaction/Blood Tranf: No (N/A) Family Medical History Reviewed Nursing Family Hx Diabetes mellitus 19 FATHER 19 MOTHER G8 BROTHER FH: skin cancer 19 MOTHER Family history: Arthritis Family history: Coronary thrombosis Family history: Diabetes mellitus History of - respiratory disease No Family History of: Abdominal aortic aneurysm [place]'s disease Alcoholism Aphasia Cancer Cancer of colon Cataract Chest pain Congenital heart disease Congestive heart failure Cystic fibrosis Dementia Dysphagia Family history: Allergy Family history: Alzheimer's disease Family history: Asthma Family history: Breast disease Family history: Cardiovascular disease Family history: Gastrointestinal disease Family history: Glaucoma Family history: Hypertension Family history: Osteoporosis Family history: Thyroid disorder Headache Hearing loss Heart disease Hereditary disease History of - anemia History of - disorder History of drug abuse Human immunodeficiency virus (HIV) seropositivity Hypercholesterolemia Infertile Kidney disease Malignant neoplasm of lung Myocardial infarction Parkinson's disease Prostate cancer Psychotic disorder Seizure disorder Stroke Tuberculosis Visual impairment No Pertinent Family Hx Physical Exam Vital Signs Vital Signs - First Documented 12/27/18 16:54 Temp 97.6 Pulse 86 Resp 18 B/P (MAP) 113/66 (82) O2 Delivery Room Air Capillary Refill : Less Than 3 Seconds General Appearance: WD/WN, no apparent distress HEENT: PERRL/EOMI, pharynx normal Neck: supple, normal inspection Cardiovascular: normal peripheral pulses, regular rate, rhythm, no murmur Respiratory: lungs clear, normal breath sounds, no respiratory distress, no accessory muscle use Extremities: normal capillary refill, swelling (swelling and tenderness to the rt hand over the 3rd, 4th, and 5th metacarpals/fingers. puncture to the rt 4th MCP joint noted without cellulitis. ) Neurologic/Psychiatric: no motor/sensory deficits, alert, normal mood/affect, oriented x 3 Skin: normal color, warm/dry, other (swelling and tenderness to the rt hand over the 3rd, 4th, and 5th metacarpals/fingers. puncture to the rt 4th MCP joint noted without cellulitis. ) Skin Problem Location: upper extremities (rt hand ) Skin Problem Character: other (swelling and tenderness to the rt hand over the 3rd, 4th, and 5th metacarpals/fingers. puncture to the rt 4th MCP joint noted without cellulitis. ) Procedures/Interventions Date of ETT Placement: May 07, 2018 Time of ETT Placement: 2339 Progress/Results/Core Measures Results/Orders My Orders Orders - KRISTIAN RICHARDS Pepcid Po (12/27/18 17:14) Tdap (Boostrix) Im (12/27/18 17:15) Motrin 800 Mg Po (7/27/19 17:14) Prednisone Tablet (Deltasone Tablet) (12/27/18 17:15) Diphenhydramine Tablet (Benadryl Tablet) (12/27/18 17:15) Vital Signs/I&O 12/27/18 16:54 Temp 97.6 Pulse 86 Resp 18 B/P (MAP) 113/66 (82) O2 Delivery Room Air Blood Pressure Mean: 82 Departure Impression Primary Impression: Bee sting Qualified Codes: T63.441A - Toxic effect of venom of bees, accidental (unintentional), initial encounter Disposition: HOME, SELF-CARE Condition: Improved Departure-Patient Inst. Decision time for Depature: 17:21 Referrals: AMINAH MOELLER MD (PCP/Family) Primary Care Physician Patient Instructions: Insect Bites and Stings (DC) Add. Discharge Instructions: All discharge instructions reviewed with patient and/or family. Voiced understanding. Medications as instructed. Claritin 10 mg once daily as needed. Benadryl 25 mg by mouth every 4-6 hours as needed for itching or swelling. Tylenol extra strength [id number] as directed for pain. Ibuprofen [id number] as directed for pain. Elevate the right hand on pillows. Follow-up with your family practitioner for recheck if not patient improvement in symptoms. Reduction in the emergency department for worsened symptoms, difficulty swallowing, difficulty breathing, fever, redness, or any other concerns. Scripts Famotidine (Pepcid) 20 Mg Tablet 20 MG PO BID, #20 TAB 0 Refills Prov: KRISTIAN RICHARDS 12/27/18 Prednisone (Prednisone) 20 Mg Tab 40 MG PO DAILY, #10 TAB 0 Refills Prov: KRISTIAN RICHARDS 12/27/18 KRISTIAN RICHARDS Dec 27, 2018 17:10
[2018-12-27] MEDS ORDERED: IBUPROFEN 800 MG (MOTRIN) TAB PO STA (17:14)
[2018-12-27] MEDS ORDERED: FAMOTIDINE 20 MG (PEPCID) TABLET PO STA (17:14)
[2018-12-27] MEDS ORDERED: diphenhydrAMINE 25 MG TAB (BENADRYL) PO ONE (17:15)
[2018-12-27] MEDS ORDERED: predniSONE 20 MG TAB PO ONE (17:15)
[2018-12-27] MEDS ORDERED: TETANUS,DIPTH,PERTUSS P/F (BOOSTRIX) 0.5 ML VIAL IM ONE (17:15)
[2018-12-27] MEDS ORDERED: PRD20T PO (17:22)
[2018-12-27] MEDS ORDERED: FAMO-119 PO (17:22)
[2018-12-27 17:44] VITALS: BP 113/66
== END 2018-12-27 17:45 | disposition home or self-care (01) ==
LOC: EDUNIT# 16:44 → ER 16:47
DX: T63.441A Toxic effect of venom of bees, accidental (unintentional), initial encounter (principal); I10 Essential (primary) hypertension; E11.9 Type 2 diabetes mellitus without complications; F17.210 Nicotine dependence, cigarettes, uncomplicated; M17.0 Bilateral primary osteoarthritis of knee; Z85.528 Personal history of other malignant neoplasm of kidney; Z23 Encounter for immunization; Z88.5 Allergy status to narcotic agent; Z79.4 Long term (current) use of insulin; Z90.5 Acquired absence of kidney; Z85.118 Personal history of other malignant neoplasm of bronchus and lung; Z80.8 Family history of malignant neoplasm of other organs or systems
CPT/HCPCS: 90715; 99284

== ENCOUNTER → 2019-01-16 | Outpatient (CLI) | payer BC ==
[~2019-01-16] MED LIST changes: +FAMO-119 PO; +HOLD METFORMIN - RECEIVED CONTRAST 20 ML VIAL IV SCH; +IOHEXOL 350 MG/ML 100 ML (OMNIPAQUE 350) VIAL IV ONE; +NS 100 ML (IVPB) BAG IV ONE; +PRD20T PO
--- NOTE | 2019-01-16 15:50 | Diagnostic Imaging Report ---
PROCEDURE: CT chest with contrast, CT abdomen and pelvis with and without contrast. TECHNIQUE: Pre and post intravenous contrast axial imaging of the abdomen and pelvis and post contrast axial imaging of the chest were performed. Auto Exposure Controls were utilized during the CT exam to meet ALARA standards for radiation dose reduction. INDICATION: Renal cancer. Findings: Comparison is 06/18/2018. Lungs are emphysematous. The previously seen 13 mm left upper lobe nodule now measures 3 mm. The 14 mm left lower lobe nodule now measures 8 mm. No edema or pneumonia. No pleural effusion or pneumothorax. Heart size is normal. No pericardial effusion. Aorta is normal in caliber. There are moderate coronary artery calcifications. No axillary, supraclavicular lymphadenopathy. A 16 mm right lower paratracheal lymph node is unchanged. Is mild hiatal hernia. Liver is normal. No focal liver lesions are seen. Gallbladder is absent. There is no biliary ductal dilation. Portal vein is patent. Pancreas, spleen and right adrenal gland are normal. Left kidney is resected, possible including the left adrenal gland. Right kidney is normal. No hydronephrosis. Urinary bladder is normal. There is diverticulosis without diverticulitis. Appendix is normal. No abdominal or pelvic lymphadenopathy. Abdominal aorta is atherosclerotic but normal in caliber. No free fluid or air is seen. There are no suspicious osseous lesions. Impression: 1. Decrease in size of pulmonary nodule stable right lower paratracheal lymph node. Dictated by: Dictated on workstation # [id number]
== END ==
LOC: RAD 15:02
PROVIDERS: ATTEND Internal Medicine Hematology & Oncology
DX: C64.1 Malignant neoplasm of right kidney, except renal pelvis (principal); C78.01 Secondary malignant neoplasm of right lung; R91.8 Other nonspecific abnormal finding of lung field
CPT/HCPCS: 71260; 74178

== ENCOUNTER 2019-03-17 14:37 | Outpatient (RCR) | payer BC, OTHER ==
[2019-01-21 15:33] LABS: BASOPHILS % (AUTO) 0 % (0-10); EOSINOPHILS # (AUTO) 0.4 10^3/uL (0.0-0.3); EOSINOPHILS % (AUTO) 5 % (0-10); HEMATOCRIT 38 % (40-54); HEMOGLOBIN 11.8 G/DL (13.3-17.7); LYMPHOCYTES # (AUTO) 1.6 X 10^3 (1.0-4.0); LYMPHOCYTES % (AUTO) 23 % (12-44); MEAN CORPUSCULAR HEMOGLOBIN 29 PG (25-34); MEAN CORPUSCULAR HGB CONC 31 G/DL (32-36); MEAN CORPUSCULAR VOLUME 95 FL (80-99); MEAN PLATELET VOLUME 9.4 FL (7.4-10.4); MONOCYTES # (AUTO) 0.7 X 10^3 (0.0-1.0); MONOCYTES % (AUTO) 11 % (0-12); NEUTROPHILS # (AUTO) 4.3 X 10^3 (1.8-7.8); NEUTROPHILS % (AUTO) 61 % (42-75); PLATELET COUNT 239 10^3/uL (130-400); RED CELL DISTRIBUTION WIDTH 14.7 % (10.0-14.5); WHITE BLOOD COUNT 7.1 10^3/uL (4.3-11.0)
[2019-01-21 16:08] LABS: ALBUMIN 4.1 GM/DL (3.2-4.5); BILIRUBIN,TOTAL 0.5 MG/DL (0.1-1.0); CALCIUM 9.9 MG/DL (8.5-10.1); CREATININE SERUM 1.4 MG/DL (0.60-1.30); POTASSIUM 4.7 MMOL/L (3.6-5.0); TOTAL PROTEIN 6.9 GM/DL (6.4-8.2)
[2019-02-18 15:55] LABS: BASOPHILS % (AUTO) 0 % (0-10); EOSINOPHILS # (AUTO) 0.4 10^3/uL (0.0-0.3); EOSINOPHILS % (AUTO) 6 % (0-10); HEMATOCRIT 40 % (40-54); HEMOGLOBIN 12.5 G/DL (13.3-17.7); LYMPHOCYTES # (AUTO) 1.6 X 10^3 (1.0-4.0); LYMPHOCYTES % (AUTO) 23 % (12-44); MEAN CORPUSCULAR HEMOGLOBIN 30 PG (25-34); MEAN CORPUSCULAR HGB CONC 31 G/DL (32-36); MEAN CORPUSCULAR VOLUME 96 FL (80-99); MONOCYTES # (AUTO) 0.7 X 10^3 (0.0-1.0); MONOCYTES % (AUTO) 10 % (0-12); NEUTROPHILS # (AUTO) 4.4 X 10^3 (1.8-7.8); NEUTROPHILS % (AUTO) 62 % (42-75); PLATELET COUNT 211 10^3/uL (130-400); RED CELL DISTRIBUTION WIDTH 14.6 % (10.0-14.5); WHITE BLOOD COUNT 7.1 10^3/uL (4.3-11.0)
[2019-02-18 16:25] LABS: ALBUMIN 4.1 GM/DL (3.2-4.5); BILIRUBIN,TOTAL 0.4 MG/DL (0.1-1.0); CALCIUM 9.5 MG/DL (8.5-10.1); CREATININE SERUM 1.39 MG/DL (0.60-1.30); POTASSIUM 4.4 MMOL/L (3.6-5.0); TOTAL PROTEIN 6.4 GM/DL (6.4-8.2)
[~2019-03-17] VITALS: Ht 188 cm; Wt 96.6 kg
[~2019-03-17 14:37] MED LIST changes: -HOLD METFORMIN - RECEIVED CONTRAST 20 ML VIAL IV SCH; -IOHEXOL 350 MG/ML 100 ML (OMNIPAQUE 350) VIAL IV ONE; +NIVOLUMAB 240 MG in NS (IVPB) CANCER CENTER 50 ML IV SCH; +NIVOLUMAB 480 MG in NS (IVPB) CANCER CENTER 100 ML IV SCH; +NS (IVPB) CANCER CENTER 250 ML IV SCH; -NS 100 ML (IVPB) BAG IV ONE; +NS IV 1000 ML (CANCER CTR) IV SCH
[2019-03-17 15:45] LABS: BASOPHILS % (AUTO) 0 % (0-10); EOSINOPHILS # (AUTO) 0.3 10^3/uL (0.0-0.3); EOSINOPHILS % (AUTO) 5 % (0-10); HEMATOCRIT 39 % (40-54); HEMOGLOBIN 12.4 G/DL (13.3-17.7); LYMPHOCYTES # (AUTO) 1.6 X 10^3 (1.0-4.0); LYMPHOCYTES % (AUTO) 23 % (12-44); MEAN CORPUSCULAR HEMOGLOBIN 30 PG (25-34); MEAN CORPUSCULAR HGB CONC 32 G/DL (32-36); MEAN CORPUSCULAR VOLUME 94 FL (80-99); MEAN PLATELET VOLUME 9.8 FL (7.4-10.4); MONOCYTES # (AUTO) 0.8 X 10^3 (0.0-1.0); MONOCYTES % (AUTO) 12 % (0-12); NEUTROPHILS # (AUTO) 4.2 X 10^3 (1.8-7.8); NEUTROPHILS % (AUTO) 61 % (42-75); PLATELET COUNT 226 10^3/uL (130-400); RED CELL DISTRIBUTION WIDTH 14.1 % (10.0-14.5); WHITE BLOOD COUNT 6.9 10^3/uL (4.3-11.0)
[2019-03-17 16:15] LABS: ALBUMIN 4.1 GM/DL (3.2-4.5); BILIRUBIN,TOTAL 0.5 MG/DL (0.1-1.0); CALCIUM 9.5 MG/DL (8.5-10.1); CREATININE SERUM 1.41 MG/DL (0.60-1.30); POTASSIUM 4.7 MMOL/L (3.6-5.0); TOTAL PROTEIN 6.5 GM/DL (6.4-8.2)
== END 2019-04-07 | disposition home or self-care (01) ==
LOC: ONC 14:37
PROVIDERS: ATTEND Internal Medicine Hematology & Oncology
DX: Z51.11 Encounter for antineoplastic chemotherapy (principal); C78.01 Secondary malignant neoplasm of right lung; Z85.528 Personal history of other malignant neoplasm of kidney; Z51.81 Encounter for therapeutic drug level monitoring; Z90.5 Acquired absence of kidney
CPT/HCPCS: 36415; 80053; 84443; 85025; 96413

== ENCOUNTER → 2019-05-13 | Outpatient (CLI) | payer BC ==
[~2019-05-13] MED LIST changes: -NIVOLUMAB 240 MG in NS (IVPB) CANCER CENTER 50 ML IV SCH; -NIVOLUMAB 480 MG in NS (IVPB) CANCER CENTER 100 ML IV SCH; -NS (IVPB) CANCER CENTER 250 ML IV SCH; -NS IV 1000 ML (CANCER CTR) IV SCH
--- NOTE | 2019-05-13 16:38 | Diagnostic Imaging Report ---
INDICATION: Trauma. Pain and swelling. COMPARISON: 10/20/2013. FINDINGS: Four radiographic views of left tibia and fibula were obtained. There is no evidence of acute fracture or dislocation. Postsurgical changes of previous total left knee replacement are partially visualized. Tibial component appears well seated. There is no evidence of periprosthetic fracture or loosening. Left ankle joint space is maintained as well. IMPRESSION: 1. No acute fracture or dislocation of left tibia or fibula. Dictated by: Dictated on workstation # [id number]
== END ==
LOC: RAD 16:22
PROVIDERS: ATTEND Nurse Practitioner Family
DX: S89.92XA Unspecified injury of left lower leg, initial encounter (principal)
CPT/HCPCS: 73590

== ENCOUNTER 2019-06-28 12:09 | Emergency (ER) | payer BC ==
[~2019-06-28] VITALS: Ht 193 cm; Wt 102.0 kg
[~2019-06-28 12:09] MED LIST changes: +GLIM4TAB3 PO; -TAMS0.4C98 PO; +TMSL.4C PO; -TRAM50TA2 PO
--- NOTE | 2019-06-28 12:57 | ED Lower Extremity ---
General Chief Complaint: Skin/Wound Problems Stated Complaint: L LEG SWELLING Nursing Triage Note: Patient reports having a piece of iron falling on his L leg about 5 weeks ago. patient states that the area that was hit has began to swell and turn red Nursing Sepsis Screen: No Definite Risk (JAMES PATIÑO MEDICAL STUDENT) Source: patient Exam Limitations: no limitations (MORGAN MARIE MD) History of Present Illness Initial Comments Mr. Mejía is a 64 year old male presenting to the ED via private vehicle for left leg pain. Patient reports that several weeks ago a piece of treated lumber and iron fell on his left leg while working. He had a deep gash on his leg for which he saw his PCP. He was prescribed Keflex on both 04/11/19 and 04/15/19. He finished both courses. He reports that he has had a wound since then but it was not causing him significant pain until 06/24/19 when he bumped his wound at work. Since then he has had increasing leg pain, which he rates as 8/10 at rest and 10/10 with movement. He reports swelling, redness, and warmth of the surrounding area. He denies fevers, chills, nausea, vomiting, diarrhea or palpitations. (JAMES PATIÑO MEDICAL STUDENT) Date Seen by Provider: Jun 28, 2019 Time Seen by Provider: 12:40 Method of Injury: direct blow Modifying Factors: Worse With Movement; Improves With Rest (MORGAN MARIE MD) Allergies and Home Medications Allergies Coded Allergies: meperidine (Verified Allergy, Mild, RASH, Pt has received Fentanyl w/o issue, 12/15/18) Home Medications Ascorbic Acid 500 Mg Tablet, 500 MG PO DAILY, (Reported) Calcium Carbonate/Vitamin D3 1 Each Tablet, 1 TAB PO BID, (Reported) Cholecalciferol (Vitamin D3) 2,000 Unit Capsule, 2,000 UNIT PO DAILY, (Reported) Colestipol HCl 1 Gm Tablet, 2 GM PO BID, (Reported) TAKES 2 (1GM) TABLET Famotidine 20 Mg Tablet, 20 MG PO BID Prescribed by: KRISTIAN RICHARDS on 12/27/18 1722 Ferrous Sulfate 325 Mg Tablet, 325 MG PO BID, (Reported) Gabapentin 300 Mg Capsule, 300 MG PO TID, (Reported) Glimepiride 4 Mg Tablet, 4 MG PO BID, (Reported) Hydrocodone/Acetaminophen 1 Each Tablet, 1 TAB PO Q4-6HR PRN for PAIN-MODERATE, (Reported) Insulin Detemir 100 Unit/1 Ml Insuln.pen, 20 UNITS SC HS, (Reported) Krill/Om-3/Dha/Epa/Phospho/Ast 1 Each Capsule, 1 CAP PO DAILY, (Reported) Lactobacillus Combo No.11 1 Each Cap.sprink, 1 EACH PO DAILY, (Reported) Lisinopril 20 Mg Tablet, 20 MG PO DAILY, (Reported) Lutein 20 Mg Tablet, 40 MG PO BID, (Reported) Magnesium Oxide 400 Mg Tablet, 400 MG PO DAILY, (Reported) Metformin HCl 500 Mg Tablet, 500 MG PO BID, (Reported) Prednisone 20 Mg Tab, 40 MG PO DAILY Prescribed by: KRISTIAN RICHARDS on 12/27/18 172 Flako AC/Safflower Oil 52 Ml Oil, TP BID, (Reported) APPLY TO SCARS [Garamycin Opth] , 3 DROPS EACH EAR BID Prescribed by: NOHEMY MILLAN on 12/19/18 1212 Patient Home Medication List Home Medication List Reviewed: Yes (MORGAN MARIE MD) Review of Systems Constitutional: no symptoms reported EENTM: no symptoms reported Respiratory: no symptoms reported Cardiovascular: no symptoms reported Gastrointestinal: no symptoms reported Musculoskeletal: other (left lower leg pain) Skin: other (Wound on lateral aspect of distal vee) (JAMES PATIÑO MEDICAL STUDENT) Constitutional: No chills, No fever Cardiovascular: no symptoms reported Gastrointestinal: no symptoms reported Musculoskeletal: muscle pain, other (left lower leg pain) Skin: change in color, lesions Psychiatric/Neurological: No Symptoms Reported (MORGAN MARIE MD) All Other Systems Reviewed Negative Unless Noted: Yes (MORGAN MARIE MD) Past Ybeewvo-Llkbxb-Flqtdf Hx Past Med/Social Hx: Reviewed Nursing Past Med/Soc Hx (MORGAN MARIE MD) Patient Social History Alcohol Use: Denies Use Recreational Drug Use: No Type Used: Cigarettes 2nd Hand Smoke Exposure: Yes Recent Foreign Travel: No Contact w/Someone Who Travel: No Recent Infectious Disease Expo: No Recent Hopitalizations: No Physical Abuse: No Sexual Abuse: No Mistreated: No Fear: No (JAMES PATIÑO MEDICAL STUDENT) Immunizations Up To Date Tetanus Booster (TDap): More than 5yrs Date of Pneumonia Vaccine: Sep 08, 2014 Date of Influenza Vaccine: Mar 03, 2018 (JAMES PATIÑO MEDICAL STUDENT) Seasonal Allergies Seasonal Allergies: No (JAMES PATIÑO MEDICAL STUDENT) Past Medical History Surgeries: Yes (BILAT TKR, BMT, HERNIA X2) Abdominal, Ear Surgery, Eye Surgery, Gallbladder, Joint Replacement, Nephrectomy Respiratory: Yes (LUNG BIOPSY/PNEUMOTHORAX; LUNG CANCER) Pneumonia, Chronic Bronchitis Currently Using CPAP: No Currently Using BIPAP: No Cardiac: Yes Hypertension Neurological: No Reproductive Disorders: No HIV/AIDS: No Genitourinary: Yes (RENAL CANCER--LEFT NEPHRECTOMY) Gastrointestinal: Yes Chronic Diarrhea, Polyps Musculoskeletal: Yes (FX LEG, COLLAR BONE, RIBS, FOOT; OSTEOARTHRITIS KNEES) Degenerate Disk Disease, Arthritis, Chronic Back Pain Endocrine: Yes Diabetes, Insulin dep HEENT: Yes (GLASSES, PARTIAL ) Cataract Loss of Vision: Denies Hearing Impairment: Hard of Hearing Cancer: Yes Lung, Kidney Did You Recieve Any Treatments: Yes What Type of Treatment Did You: Chemotherapy, Surgical Intervention Psychosocial: No Integumentary: No Blood Disorders: No Adverse Reaction/Blood Tranf: No (N/A) (JAMES PATIÑO MEDICAL STUDENT) Family Medical History Reviewed Nursing Family Hx (MORGAN MARIE MD) Diabetes mellitus 19 FATHER 19 MOTHER G8 BROTHER FH: skin cancer 19 MOTHER Family history: Arthritis Family history: Coronary thrombosis Family history: Diabetes mellitus History of - respiratory disease No Family History of: Abdominal aortic aneurysm Buffalo's disease Alcoholism Aphasia Cancer Cancer of colon Cataract Chest pain Congenital heart disease Congestive heart failure Cystic fibrosis Dementia Dysphagia Family history: Allergy Family history: Alzheimer's disease Family history: Asthma Family history: Breast disease Family history: Cardiovascular disease Family history: Gastrointestinal disease Family history: Glaucoma Family history: Hypertension Family history: Osteoporosis Family history: Thyroid disorder Headache Hearing loss Heart disease Hereditary disease History of - anemia History of - disorder History of drug abuse Human immunodeficiency virus (HIV) seropositivity Hypercholesterolemia Infertile Kidney disease Malignant neoplasm of lung Myocardial infarction Parkinson's disease Prostate cancer Psychotic disorder Seizure disorder Stroke Tuberculosis Visual impairment No Pertinent Family Hx (JAMES PATIÑO MEDICAL STUDENT) Physical Exam Vital Signs Vital Signs - First Documented 06/28/19 12:16 Temp 36.9 Pulse 80 Resp 18 B/P (MAP) 155/77 (103) Pulse Ox 99 (MORGAN MARIE MD) Vital Signs Capillary Refill : Less Than 3 Seconds (JAMES PATIÑO MEDICAL STUDENT) Height, Weight, BMI Height: 6'4.00" Weight: 203lbs. 5.0oz. 92.686460mi; 27.00 BMI Method:Stated General Appearance: no apparent distress Cardiovascular: normal peripheral pulses, regular rate, rhythm, no murmur Respiratory: lungs clear, normal breath sounds Gastrointestinal: normal bowel sounds, non tender, soft Legs: left leg pain (severely tender to palpation), left leg soft tissue tenderness, left leg swelling (circumferential from mid-calf to mid-foot), left leg other (Red, warm to touch) Feet: left foot pain, left foot soft tissue tenderness, left foot swelling Neurologic/Tendon: normal sensation, normal motor functions (JAMES PATIÑO MEDICAL STUDENT) General Appearance: WD/WN, no apparent distress Cardiovascular: normal peripheral pulses, regular rate, rhythm Respiratory: lungs clear, normal breath sounds Gastrointestinal: non tender, soft Legs: right leg non-tender, right leg normal inspection, right leg normal range of motion Feet: right foot non-tender, right foot normal inspection, right foot normal range of motion Neurologic/Psychiatric: alert, oriented x 3 Skin: warm/dry, other (erythema to the distal left lower extremity from distal third junction of the tibia down into the mid foot including ankle. Circumferential erythema and swelling. Healing lesion lateral aspect proximal to the lateral malleolus actually 2 x 2 centimeter) Lymphatic: no adenopathy (MORGAN MARIE MD) Procedures/Interventions Date of ETT Placement: May 07, 2018 Time of ETT Placement: 2340 (JAMES PATIÑO MEDICAL STUDENT) Progress/Results/Core Measures Results/Orders Lab Results Laboratory Tests Test 06/28/19 13:10 Range/Units White Blood Count 9.2 4.3-11.0 10^3/uL Red Blood Count 4.14 L 4.35-5.85 10^6/uL Hemoglobin 12.1 L 13.3-17.7 G/DL Hematocrit 39 L 40-54 % Mean Corpuscular Volume 93 80-99 FL Mean Corpuscular Hemoglobin 29 25-34 PG Mean Corpuscular Hemoglobin Concent 31 L 32-36 G/DL Red Cell Distribution Width 14.5 10.0-14.5 % Platelet Count 239 130-400 10^3/uL Mean Platelet Volume 9.6 7.4-10.4 FL Neutrophils (%) (Auto) 69 42-75 % Lymphocytes (%) (Auto) 15 12-44 % Monocytes (%) (Auto) 11 0-12 % Eosinophils (%) (Auto) 5 0-10 % Basophils (%) (Auto) 0 0-10 % Neutrophils # (Auto) 6.3 1.8-7.8 X 10^3 Lymphocytes # (Auto) 1.4 1.0-4.0 X 10^3 Monocytes # (Auto) 1.0 0.0-1.0 X 10^3 Eosinophils # (Auto) 0.5 H 0.0-0.3 10^3/uL Basophils # (Auto) 0.0 0.0-0.1 10^3/uL Sodium Level 136 135-145 MMOL/L Potassium Level 5.2 H 3.6-5.0 MMOL/L Chloride Level 104 98-107 MMOL/L Carbon Dioxide Level 22 21-32 MMOL/L Anion Gap 10 5-14 MMOL/L Blood Urea Nitrogen 28 H 7-18 MG/DL Creatinine 1.43 H 0.60-1.30 MG/DL Estimat Glomerular Filtration Rate 50 BUN/Creatinine Ratio 20 Glucose Level 168 H 70-105 MG/DL Lactic Acid Level 0.74 0.50-2.00 MMOL/L Calcium Level 9.3 8.5-10.1 MG/DL Corrected Calcium 9.5 8.5-10.1 MG/DL Total Bilirubin 0.5 0.1-1.0 MG/DL Aspartate Amino Transf (AST/SGOT) 20 5-34 U/L Alanine Aminotransferase (ALT/SGPT) 24 0-55 U/L Alkaline Phosphatase 68 40-136 U/L C-Reactive Protein High Sensitivity 1.17 H 0.00-0.50 MG/DL Total Protein 6.6 6.4-8.2 GM/DL Albumin 3.8 3.2-4.5 GM/DL (MORGAN MARIE MD) My Orders Orders - MORGAN MARIE MD Cbc With Automated Diff (06/28/19 12:47) Comprehensive Metabolic Panel (06/28/19 12:47) Hs C Reactive Protein (06/28/19 12:47) Lactic Acid Analyzer (06/28/19 12:47) Blood Culture (06/28/19 12:47) Tibia/Fibula, Left, 2 Views (06/28/19 12:47) Ed Iv/Invasive Line Start (06/28/19 12:47) Ceftriaxone For Iv Use (Rocephin For I (06/28/19 14:15) (MORGAN MARIE MD) Vital Signs/I&O 06/28/19 12:16 Temp 36.9 Pulse 80 Resp 18 B/P (MAP) 155/77 (103) Pulse Ox 99 (MORGAN MARIE MD) Blood Pressure Mean: 103 Progress Progress Note : Progress Note I have seen and evaluated the patient and agree with above except as indicated. I directed the plan of care. IV, labs, blood cultures and lactic acid ordered. X-ray left lower extremity. Monitor patient. 1421: Rocephin 1 g IV. Labs reassuring as well as x-ray. We will continue outpatient treatment with doxycycline 10 days. Discharged home with return precautions. Patient verbalize understanding instructions and agreement with plan. Toradol 15 mg IV given for pain. (MORGAN MARIE MD) Diagnostic Imaging Diagonstic Imaging: Xray Plain Films/CT/US/NM/MRI: other Comments [facility], [place] NAME: [facility] REC#: [id number] PT STATUS: REG ER : 1955 PHYSICIAN: MORGAN MARIE MD ADMIT DATE: 06/28/19/ER Draft Date of Exam:06/28/19 TIBIA/FIBULA, LEFT, 2 VIEWS EXAMINATION: Left tibia and fibula at 121h. INDICATION: Injury AP and lateral views were obtained. The prior exam of 05/13/2019 noted post traumatic and post surgical changes involving the knee joint including a total knee prosthesis. The prosthesis is again evident on this study and remains in good position. There is no fracture or acute bony abnormality identified. The soft tissues are unremarkable. There is no radiopaque foreign body evident. IMPRESSION: 1. There is no evidence for an acute bony abnormality of the left lower leg. 2. The total knee prosthesis seen previously appears stable. Dictated on workstation # [id number] Dict: 06/28/19 1342 Trans: 06/28/19 1353 [facility] [id number] Interpreted by: EDUARDA PHILLIPS MD Electronically signed by: Reviewed: Reviewed by Me (MORGAN MARIE MD) Departure Impression Primary Impression: Cellulitis of right lower extremity Disposition: HOME, SELF-CARE Condition: Improved Departure-Patient Inst. Decision time for Depature: 14:23 (MORGAN MARIE MD) Referrals: SHAWN CALLEJAS MD (PCP/Family) Primary Care Physician Patient Instructions: Cellulitis (Skin Infection), Adult (DC) Add. Discharge Instructions: All discharge instructions reviewed with patient and/or family. Voiced understanding. Take medications as directed. Elevate the feet as much as possible. Follow-up with your doctor in 2-3 days for recheck. Return for worse pain, fever, increasing redness, increasing swelling, foul-smelling drainage or other concerns as needed. You may take Tylenol/acetaminophen 1000 mg every 8 hours as needed for pain (2 yuya-yey-qshufly extra strength tablets). Do not exceed 6 tablets in a day. If you take your prescribed pain medicine, you may only take one of the extra strength tablets every 8 hours. Scripts Doxycycline Hyclate (Doxycycline Hyclate) 100 Mg Tablet 100 MG PO BID, #20 TAB 0 Refills Prov: MORGAN MARIE MD 06/28/19 JAMES PATIÑO MEDICAL STUDENT Jun 28, 2019 12:57 MORGAN MARIE MD Jun 28, 2019 13:25
[2019-06-28 13:26] LABS: BASOPHILS % (AUTO) 0 % (0-10); EOSINOPHILS # (AUTO) 0.5 10^3/uL (0.0-0.3); EOSINOPHILS % (AUTO) 5 % (0-10); HEMATOCRIT 39 % (40-54); HEMOGLOBIN 12.1 G/DL (13.3-17.7); LYMPHOCYTES # (AUTO) 1.4 X 10^3 (1.0-4.0); LYMPHOCYTES % (AUTO) 15 % (12-44); MEAN CORPUSCULAR HEMOGLOBIN 29 PG (25-34); MEAN CORPUSCULAR HGB CONC 31 G/DL (32-36); MEAN CORPUSCULAR VOLUME 93 FL (80-99); MEAN PLATELET VOLUME 9.6 FL (7.4-10.4); MONOCYTES % (AUTO) 11 % (0-12); NEUTROPHILS # (AUTO) 6.3 X 10^3 (1.8-7.8); NEUTROPHILS % (AUTO) 69 % (42-75); PLATELET COUNT 239 10^3/uL (130-400); RED CELL DISTRIBUTION WIDTH 14.5 % (10.0-14.5); WHITE BLOOD COUNT 9.2 10^3/uL (4.3-11.0)
[2019-06-28 13:50] LABS: ALBUMIN 3.8 GM/DL (3.2-4.5); BILIRUBIN,TOTAL 0.5 MG/DL (0.1-1.0); CALCIUM 9.3 MG/DL (8.5-10.1); CREATININE SERUM 1.43 MG/DL (0.60-1.30); POTASSIUM 5.2 MMOL/L (3.6-5.0); TOTAL PROTEIN 6.6 GM/DL (6.4-8.2)
--- NOTE | 2019-06-28 13:53 | Diagnostic Imaging Report ---
EXAMINATION: Left tibia and fibula at 121h. INDICATION: Injury AP and lateral views were obtained. The prior exam of 05/13/2019 noted post traumatic and post surgical changes involving the knee joint including a total knee prosthesis. The prosthesis is again evident on this study and remains in good position. There is no fracture or acute bony abnormality identified. The soft tissues are unremarkable. There is no radiopaque foreign body evident. IMPRESSION: 1. There is no evidence for an acute bony abnormality of the left lower leg. 2. The total knee prosthesis seen previously appears stable. Dictated by: Dictated on workstation # [id number]
[2019-06-28] MEDS ORDERED: cefTRIAXone FOR IV USE 1,000 MG in WATER (STERILE) FOR INJECTION 10 ML IV ONE (14:15)
[2019-06-28] MEDS ORDERED: KETOROLAC 30 MG/ML VIAL IVP STA (14:18)
[2019-06-28] MEDS ORDERED: DOXY100T2 PO (14:25)
[2019-06-28 14:39] VITALS: BP 155/77
== END 2019-06-28 14:40 | disposition home or self-care (01) ==
LOC: EDUNIT# 12:09 → ER 12:10
DX: L03.115 Cellulitis of right lower limb (principal); I10 Essential (primary) hypertension; E11.9 Type 2 diabetes mellitus without complications; M17.0 Bilateral primary osteoarthritis of knee; Z88.5 Allergy status to narcotic agent; Z79.4 Long term (current) use of insulin; Z79.52 Long term (current) use of systemic steroids; Z77.22 Contact with and (suspected) exposure to environmental tobacco smoke (acute) (chronic); Z96.653 Presence of artificial knee joint, bilateral; Z90.5 Acquired absence of kidney; Z85.118 Personal history of other malignant neoplasm of bronchus and lung; Z85.528 Personal history of other malignant neoplasm of kidney; Z80.8 Family history of malignant neoplasm of other organs or systems
CPT/HCPCS: 36415; 73590; 80053; 83605; 85025; 86141; 87040

== ENCOUNTER 2019-07-07 15:12 | Outpatient (RCR) | payer BC, OTHER ==
[2019-04-14 15:27] LABS: BASOPHILS % (AUTO) 0 % (0-10); EOSINOPHILS # (AUTO) 0.4 10^3/uL (0.0-0.3); EOSINOPHILS % (AUTO) 5 % (0-10); HEMATOCRIT 39 % (40-54); HEMOGLOBIN 12.2 G/DL (13.3-17.7); LYMPHOCYTES # (AUTO) 1.8 X 10^3 (1.0-4.0); LYMPHOCYTES % (AUTO) 23 % (12-44); MEAN CORPUSCULAR HEMOGLOBIN 29 PG (25-34); MEAN CORPUSCULAR HGB CONC 31 G/DL (32-36); MEAN CORPUSCULAR VOLUME 94 FL (80-99); MEAN PLATELET VOLUME 9.3 FL (7.4-10.4); MONOCYTES # (AUTO) 1.1 X 10^3 (0.0-1.0); MONOCYTES % (AUTO) 14 % (0-12); NEUTROPHILS # (AUTO) 4.6 X 10^3 (1.8-7.8); NEUTROPHILS % (AUTO) 59 % (42-75); PLATELET COUNT 222 10^3/uL (130-400); WHITE BLOOD COUNT 7.8 10^3/uL (4.3-11.0)
[2019-04-14 15:53] LABS: ALBUMIN 4.3 GM/DL (3.2-4.5); BILIRUBIN,TOTAL 0.4 MG/DL (0.1-1.0); CALCIUM 9.9 MG/DL (8.5-10.1); CREATININE SERUM 1.57 MG/DL (0.60-1.30); POTASSIUM 4.7 MMOL/L (3.6-5.0); TOTAL PROTEIN 6.9 GM/DL (6.4-8.2)
[2019-05-12 15:21] LABS: BASOPHILS % (AUTO) 0 % (0-10); EOSINOPHILS # (AUTO) 0.4 10^3/uL (0.0-0.3); EOSINOPHILS % (AUTO) 5 % (0-10); HEMATOCRIT 41 % (40-54); HEMOGLOBIN 13.1 G/DL (13.3-17.7); LYMPHOCYTES # (AUTO) 1.5 X 10^3 (1.0-4.0); LYMPHOCYTES % (AUTO) 18 % (12-44); MEAN CORPUSCULAR HEMOGLOBIN 30 PG (25-34); MEAN CORPUSCULAR HGB CONC 32 G/DL (32-36); MEAN CORPUSCULAR VOLUME 93 FL (80-99); MEAN PLATELET VOLUME 10.1 FL (7.4-10.4); MONOCYTES % (AUTO) 12 % (0-12); NEUTROPHILS # (AUTO) 5.2 X 10^3 (1.8-7.8); NEUTROPHILS % (AUTO) 65 % (42-75); PLATELET COUNT 202 10^3/uL (130-400); WHITE BLOOD COUNT 8.1 10^3/uL (4.3-11.0)
[2019-05-12 15:39] LABS: ALBUMIN 4.3 GM/DL (3.2-4.5); BILIRUBIN,TOTAL 0.4 MG/DL (0.1-1.0); CALCIUM 9.7 MG/DL (8.5-10.1); CREATININE SERUM 1.44 MG/DL (0.60-1.30); POTASSIUM 5.2 MMOL/L (3.6-5.0); TOTAL PROTEIN 6.9 GM/DL (6.4-8.2)
[2019-06-09 16:02] LABS: BASOPHILS % (AUTO) 0 % (0-10); EOSINOPHILS # (AUTO) 0.6 10^3/uL (0.0-0.3); EOSINOPHILS % (AUTO) 8 % (0-10); HEMATOCRIT 39 % (40-54); HEMOGLOBIN 12.4 G/DL (13.3-17.7); LYMPHOCYTES # (AUTO) 1.6 X 10^3 (1.0-4.0); LYMPHOCYTES % (AUTO) 22 % (12-44); MEAN CORPUSCULAR HEMOGLOBIN 29 PG (25-34); MEAN CORPUSCULAR HGB CONC 32 G/DL (32-36); MEAN CORPUSCULAR VOLUME 92 FL (80-99); MEAN PLATELET VOLUME 8.8 FL (7.4-10.4); MONOCYTES # (AUTO) 0.8 X 10^3 (0.0-1.0); MONOCYTES % (AUTO) 11 % (0-12); NEUTROPHILS # (AUTO) 4.2 X 10^3 (1.8-7.8); NEUTROPHILS % (AUTO) 59 % (42-75); PLATELET COUNT 238 10^3/uL (130-400); RED CELL DISTRIBUTION WIDTH 14.6 % (10.0-14.5); WHITE BLOOD COUNT 7.1 10^3/uL (4.3-11.0)
[2019-06-09 16:24] LABS: ALBUMIN 4.2 GM/DL (3.2-4.5); BILIRUBIN,TOTAL 0.6 MG/DL (0.1-1.0); CALCIUM 10.1 MG/DL (8.5-10.1); CREATININE SERUM 1.62 MG/DL (0.60-1.30); POTASSIUM 5.3 MMOL/L (3.6-5.0); TOTAL PROTEIN 6.6 GM/DL (6.4-8.2)
[~2019-07-07 15:12] MED LIST changes: +DOXY100T2 PO; +NIVOLUMAB 480 MG in NS (IVPB) CANCER CENTER 100 ML IV SCH; +NS (IVPB) CANCER CENTER 250 ML IV SCH; +NS IV 1000 ML (CANCER CTR) IV SCH
[2019-07-07 15:43] LABS: BASOPHILS % (AUTO) 0 % (0-10); EOSINOPHILS # (AUTO) 0.5 10^3/uL (0.0-0.3); EOSINOPHILS % (AUTO) 5 % (0-10); HEMATOCRIT 40 % (40-54); HEMOGLOBIN 12.7 G/DL (13.3-17.7); LYMPHOCYTES # (AUTO) 1.7 X 10^3 (1.0-4.0); LYMPHOCYTES % (AUTO) 19 % (12-44); MEAN CORPUSCULAR HEMOGLOBIN 30 PG (25-34); MEAN CORPUSCULAR HGB CONC 32 G/DL (32-36); MEAN CORPUSCULAR VOLUME 93 FL (80-99); MEAN PLATELET VOLUME 10.1 FL (7.4-10.4); MONOCYTES # (AUTO) 0.9 X 10^3 (0.0-1.0); MONOCYTES % (AUTO) 10 % (0-12); NEUTROPHILS # (AUTO) 5.9 X 10^3 (1.8-7.8); NEUTROPHILS % (AUTO) 66 % (42-75); PLATELET COUNT 295 10^3/uL (130-400); RED CELL DISTRIBUTION WIDTH 15.1 % (10.0-14.5); WHITE BLOOD COUNT 8.9 10^3/uL (4.3-11.0)
[2019-07-07 16:02] LABS: ALBUMIN 4.2 GM/DL (3.2-4.5); BILIRUBIN,TOTAL 0.5 MG/DL (0.1-1.0); CREATININE SERUM 1.57 MG/DL (0.60-1.30); POTASSIUM 5.3 MMOL/L (3.6-5.0); TOTAL PROTEIN 7.2 GM/DL (6.4-8.2)
== END 2019-07-13 | disposition home or self-care (01) ==
LOC: ONC 15:12
PROVIDERS: ATTEND Internal Medicine Hematology & Oncology
DX: Z51.11 Encounter for antineoplastic chemotherapy (principal); C64.1 Malignant neoplasm of right kidney, except renal pelvis; C78.01 Secondary malignant neoplasm of right lung; I10 Essential (primary) hypertension; D63.0 Anemia in neoplastic disease; E11.9 Type 2 diabetes mellitus without complications; A41.9 Sepsis, unspecified organism; R00.0 Tachycardia, unspecified; D72.829 Elevated white blood cell count, unspecified; R19.7 Diarrhea, unspecified; Z98.890 Other specified postprocedural states; Z89.022 Acquired absence of left finger(s); Z90.49 Acquired absence of other specified parts of digestive tract; Z79.4 Long term (current) use of insulin
CPT/HCPCS: 36415; 80053; 84443; 85025; 96413

== ENCOUNTER → 2019-08-06 | Outpatient (CLI) | payer BC ==
[~2019-08-06] MED LIST changes: +ACHD5005 PO; -GLIM4TAB3 PO; +GLIM4TAB5 PO; -HYDR-3812 PO; -HYDR-3820 PO; -NIVOLUMAB 480 MG in NS (IVPB) CANCER CENTER 100 ML IV SCH; -NS (IVPB) CANCER CENTER 250 ML IV SCH; -NS IV 1000 ML (CANCER CTR) IV SCH
== END ==
LOC: WOUNDCARE 13:15
PROVIDERS: ATTEND Surgery
DX: E11.622 Type 2 diabetes mellitus with other skin ulcer (principal); E11.52 Type 2 diabetes mellitus with diabetic peripheral angiopathy with gangrene; I70.262 Atherosclerosis of native arteries of extremities with gangrene, left leg; I87.332 Chronic venous hypertension (idiopathic) with ulcer and inflammation of left lower extremity; C64.2 Malignant neoplasm of left kidney, except renal pelvis; L97.222 Non-pressure chronic ulcer of left calf with fat layer exposed; Z92.21 Personal history of antineoplastic chemotherapy
CPT/HCPCS: 11104

== ENCOUNTER → 2019-08-10 | Outpatient (CLI) | payer BC | LOC: WOUNDCARE 15:31 | PROVIDERS: ATTEND Surgery | DX: L97.222 Non-pressure chronic ulcer of left calf with fat layer exposed (principal); E11.622 Type 2 diabetes mellitus with other skin ulcer; I87.332 Chronic venous hypertension (idiopathic) with ulcer and inflammation of left lower extremity; C64.2 Malignant neoplasm of left kidney, except renal pelvis; E11.52 Type 2 diabetes mellitus with diabetic peripheral angiopathy with gangrene; Z92.21 Personal history of antineoplastic chemotherapy | CPT/HCPCS: 99213 ==

== ENCOUNTER → 2019-08-12 | Outpatient (CLI) | payer BC ==
--- NOTE | 2019-08-12 17:09 | Diagnostic Imaging Report ---
PROCEDURE: US left lower extremity venous. TECHNIQUE: Multiple real-time grayscale images were obtained over the left lower extremity in various projections. Additional duplex Doppler and color Doppler images were also obtained. INDICATION: Left leg swelling, ulcers lower leg FINDINGS: Left lower extremity venous Doppler demonstrates normal compression, augmentation, and color flow. No fluid collections are identified. IMPRESSION: Negative left lower extremity venous Doppler. Dictated by: Dictated on workstation # [id number]
== END ==
LOC: RAD 15:23
PROVIDERS: ATTEND Surgery
DX: E11.622 Type 2 diabetes mellitus with other skin ulcer (principal); L97.222 Non-pressure chronic ulcer of left calf with fat layer exposed; I87.332 Chronic venous hypertension (idiopathic) with ulcer and inflammation of left lower extremity; C64.2 Malignant neoplasm of left kidney, except renal pelvis; Z92.21 Personal history of antineoplastic chemotherapy

== ENCOUNTER → 2019-08-13 | Outpatient (CLI) | payer BC | LOC: LAB 12:12 | PROVIDERS: ATTEND Surgery | DX: E11.622 Type 2 diabetes mellitus with other skin ulcer (principal) | CPT/HCPCS: 36415; 83036 ==

== ENCOUNTER → 2019-08-13 | Outpatient (CLI) | payer BC | LOC: WOUNDCARE 10:55 | PROVIDERS: ATTEND Surgery | DX: E11.622 Type 2 diabetes mellitus with other skin ulcer (principal); L97.222 Non-pressure chronic ulcer of left calf with fat layer exposed; I87.332 Chronic venous hypertension (idiopathic) with ulcer and inflammation of left lower extremity; C64.2 Malignant neoplasm of left kidney, except renal pelvis; Z92.21 Personal history of antineoplastic chemotherapy; L22 Diaper dermatitis; M79.605 Pain in left leg | CPT/HCPCS: 99213 ==

== ENCOUNTER → 2019-08-14 | Outpatient (CLI) | payer BC ==
[~2019-08-14] MED LIST changes: +CATHETER FLUSH 10 ML SYR IV PRN; +HOLD METFORMIN - RECEIVED CONTRAST 20 ML VIAL IV SCH; +IOHEXOL 350 MG/ML 100 ML (OMNIPAQUE 350) VIAL IV ONE; +NS 100 ML (IVPB) BAG IV ONE
--- NOTE | 2019-08-14 16:07 | Diagnostic Imaging Report ---
PROCEDURE: CT chest with contrast, CT abdomen and pelvis with and without contrast. TECHNIQUE: Pre and post intravenous contrast axial imaging of the abdomen and pelvis and post contrast axial imaging of the chest were performed. Auto Exposure Controls were utilized during the CT exam to meet ALARA standards for radiation dose reduction. INDICATION: Carcinoma, secondary lung cancer. COMPARISON: January 16, 2019 and March 21, 2018. FINDINGS: Precarinal lymph node is mildly prominent measuring 1.5 cm, though this is unchanged since March 2018. A few calcified mediastinal and hilar lymph nodes are again identified. No new adenopathy within the chest. Scattered vascular calcifications within the thoracic aorta and its branch vessels, including within the coronary arteries. No aneurysmal dilatation of the thoracic aorta. The heart is within normal limits in size. No pericardial effusion. No pleural effusion. Large hiatal hernia is again noted. Moderate background emphysematous changes. No pneumothorax. Previously noted left upper lobe/lingular pulmonary nodule appears unchanged from the prior examination measuring 0.6 x 0.3 cm. Previously noted left lower lobe pulmonary nodule continues to decrease in size now measuring 3 mm, axial image 50. No new pulmonary nodules or opacities. Scattered osseous degenerative changes without acute osseous abnormality within the chest. Cholecystectomy. Minimal pneumobilia within the left hepatic lobe is again identified and stable. The liver is otherwise unremarkable. The spleen is unremarkable. The right adrenal gland is unremarkable. The pancreas is unremarkable. Postsurgical changes of a left nephrectomy. No abnormal soft tissue mass within the left renal fossa. Advanced vascular calcifications without aneurysmal dilatation of the abdominal aorta. The urinary bladder is unremarkable. Extensive colonic diverticulosis without CT evidence of diverticulitis. The appendix is unremarkable. Significant mural thickening associated with multiple loops of small bowel are present, particularly within the left abdomen. This appears to be a change from the prior examination. No bowel obstruction or pneumatosis. Duodenal diverticulum are again identified without adjacent fat stranding. No significant adenopathy, free air, or free fluid within the abdomen or pelvis. Scattered osseous degenerative changes without acute osseous abnormality. IMPRESSION: Previously noted left-sided pulmonary nodules continue to decrease in size without new suspicious pulmonary nodules. Therefore, findings likely relate to good interval response to therapy. Significant mural thickening associated with multiple loops of small bowel, favored related to underlying enteritis. Postsurgical changes within the right upper quadrant with associated stable pneumobilia. Dictated by: Dictated on workstation # [id number]
== END ==
LOC: RAD 15:01
PROVIDERS: ATTEND Internal Medicine Hematology & Oncology
DX: C64.1 Malignant neoplasm of right kidney, except renal pelvis (principal); C78.01 Secondary malignant neoplasm of right lung; R92.8 Other abnormal and inconclusive findings on diagnostic imaging of breast; Z98.890 Other specified postprocedural states
CPT/HCPCS: 71260; 74178

== ENCOUNTER → 2019-08-17 | Outpatient (CLI) | payer BC ==
[~2019-08-17] MED LIST changes: -CATHETER FLUSH 10 ML SYR IV PRN; -HOLD METFORMIN - RECEIVED CONTRAST 20 ML VIAL IV SCH; -IOHEXOL 350 MG/ML 100 ML (OMNIPAQUE 350) VIAL IV ONE; -NS 100 ML (IVPB) BAG IV ONE
== END ==
LOC: WOUNDCARE 15:36
PROVIDERS: ATTEND Surgery
DX: E11.622 Type 2 diabetes mellitus with other skin ulcer (principal); L97.222 Non-pressure chronic ulcer of left calf with fat layer exposed; I87.332 Chronic venous hypertension (idiopathic) with ulcer and inflammation of left lower extremity; C64.2 Malignant neoplasm of left kidney, except renal pelvis; Z92.21 Personal history of antineoplastic chemotherapy; L22 Diaper dermatitis; M79.605 Pain in left leg
CPT/HCPCS: 11042

== ENCOUNTER → 2019-08-25 | Outpatient (CLI) | payer BC | LOC: WOUNDCARE 15:13 | PROVIDERS: ATTEND Surgery | DX: E11.622 Type 2 diabetes mellitus with other skin ulcer (principal); L97.222 Non-pressure chronic ulcer of left calf with fat layer exposed; I87.332 Chronic venous hypertension (idiopathic) with ulcer and inflammation of left lower extremity; C64.2 Malignant neoplasm of left kidney, except renal pelvis; Z92.21 Personal history of antineoplastic chemotherapy; L22 Diaper dermatitis; M79.605 Pain in left leg | CPT/HCPCS: 99213 ==

== ENCOUNTER → 2019-09-01 | Outpatient (CLI) | payer BC | LOC: WOUNDCARE 15:15 | PROVIDERS: ATTEND Surgery | DX: E11.622 Type 2 diabetes mellitus with other skin ulcer (principal); L97.222 Non-pressure chronic ulcer of left calf with fat layer exposed; I87.332 Chronic venous hypertension (idiopathic) with ulcer and inflammation of left lower extremity; C64.2 Malignant neoplasm of left kidney, except renal pelvis; Z92.21 Personal history of antineoplastic chemotherapy; M79.605 Pain in left leg; I89.0 Lymphedema, not elsewhere classified | CPT/HCPCS: 99212 ==

== ENCOUNTER 2019-10-27 15:13 | Outpatient (RCR) | payer BC, OTHER ==
[2019-08-04 15:40] LABS: BASOPHILS % (AUTO) 0 % (0-10); EOSINOPHILS # (AUTO) 0.4 10^3/uL (0.0-0.3); EOSINOPHILS % (AUTO) 4 % (0-10); HEMATOCRIT 38 % (40-54); HEMOGLOBIN 11.9 G/DL (13.3-17.7); LYMPHOCYTES # (AUTO) 1.3 X 10^3 (1.0-4.0); LYMPHOCYTES % (AUTO) 14 % (12-44); MEAN CORPUSCULAR HEMOGLOBIN 29 PG (25-34); MEAN CORPUSCULAR HGB CONC 31 G/DL (32-36); MEAN CORPUSCULAR VOLUME 94 FL (80-99); MEAN PLATELET VOLUME 9.1 FL (7.4-10.4); MONOCYTES # (AUTO) 1.1 X 10^3 (0.0-1.0); MONOCYTES % (AUTO) 11 % (0-12); NEUTROPHILS % (AUTO) 72 % (42-75); PLATELET COUNT 271 10^3/uL (130-400); RED CELL DISTRIBUTION WIDTH 15.1 % (10.0-14.5); WHITE BLOOD COUNT 9.8 10^3/uL (4.3-11.0)
[2019-08-04 16:03] LABS: ALBUMIN 4.1 GM/DL (3.2-4.5); BILIRUBIN,TOTAL 0.5 MG/DL (0.1-1.0); CALCIUM 9.5 MG/DL (8.5-10.1); CREATININE SERUM 1.44 MG/DL (0.60-1.30); POTASSIUM 5.2 MMOL/L (3.6-5.0); TOTAL PROTEIN 6.9 GM/DL (6.4-8.2)
[2019-09-28 14:59] LABS: BASOPHILS % (AUTO) 0 % (0-10); EOSINOPHILS # (AUTO) 0.5 10^3/uL (0.0-0.3); EOSINOPHILS % (AUTO) 6 % (0-10); HEMATOCRIT 40 % (40-54); HEMOGLOBIN 12.7 G/DL (13.3-17.7); LYMPHOCYTES % (AUTO) 20 % (12-44); MEAN CORPUSCULAR HEMOGLOBIN 30 PG (25-34); MEAN CORPUSCULAR HGB CONC 32 G/DL (32-36); MEAN CORPUSCULAR VOLUME 93 FL (80-99); MEAN PLATELET VOLUME 9.9 FL (7.4-10.4); MONOCYTES # (AUTO) 0.9 X 10^3 (0.0-1.0); MONOCYTES % (AUTO) 9 % (0-12); NEUTROPHILS # (AUTO) 6.5 X 10^3 (1.8-7.8); NEUTROPHILS % (AUTO) 66 % (42-75); PLATELET COUNT 230 10^3/uL (130-400); RED CELL DISTRIBUTION WIDTH 15.1 % (10.0-14.5); WHITE BLOOD COUNT 9.9 10^3/uL (4.3-11.0)
[2019-09-28 15:18] LABS: BILIRUBIN,TOTAL 0.7 MG/DL (0.1-1.0); CALCIUM 9.6 MG/DL (8.5-10.1); CREATININE SERUM 1.45 MG/DL (0.60-1.30); TOTAL PROTEIN 6.2 GM/DL (6.4-8.2)
[~2019-10-27 15:13] MED LIST changes: +ASCO500T17 PO; -ASCO500T6 PO; +NIVOLUMAB 480 MG in NS (IVPB) CANCER CENTER 100 ML IV SCH; +NS (IVPB) CANCER CENTER 250 ML IV SCH; +NS IV 1000 ML (CANCER CTR) IV SCH
[2019-10-27 15:27] LABS: BASOPHILS % (AUTO) 0 % (0-10); EOSINOPHILS # (AUTO) 0.6 10^3/uL (0.0-0.3); EOSINOPHILS % (AUTO) 6 % (0-10); HEMATOCRIT 38 % (40-54); HEMOGLOBIN 12.3 G/DL (13.3-17.7); LYMPHOCYTES # (AUTO) 2.2 X 10^3 (1.0-4.0); LYMPHOCYTES % (AUTO) 21 % (12-44); MEAN CORPUSCULAR HEMOGLOBIN 30 PG (25-34); MEAN CORPUSCULAR HGB CONC 32 G/DL (32-36); MEAN CORPUSCULAR VOLUME 93 FL (80-99); MEAN PLATELET VOLUME 9.9 FL (7.4-10.4); MONOCYTES # (AUTO) 1.1 X 10^3 (0.0-1.0); MONOCYTES % (AUTO) 11 % (0-12); NEUTROPHILS # (AUTO) 6.3 X 10^3 (1.8-7.8); NEUTROPHILS % (AUTO) 62 % (42-75); PLATELET COUNT 232 10^3/uL (130-400); WHITE BLOOD COUNT 10.2 10^3/uL (4.3-11.0)
[2019-10-27 15:48] LABS: ALBUMIN 4.2 GM/DL (3.2-4.5); BILIRUBIN,TOTAL 0.6 MG/DL (0.1-1.0); CALCIUM 9.6 MG/DL (8.5-10.1); CREATININE SERUM 1.69 MG/DL (0.60-1.30); TOTAL PROTEIN 6.9 GM/DL (6.4-8.2)
== END 2019-11-02 | disposition home or self-care (01) ==
LOC: ONC 15:13
PROVIDERS: ATTEND Internal Medicine Hematology & Oncology
DX: Z51.11 Encounter for antineoplastic chemotherapy (principal); C64.1 Malignant neoplasm of right kidney, except renal pelvis; C78.01 Secondary malignant neoplasm of right lung; I10 Essential (primary) hypertension; D63.0 Anemia in neoplastic disease; E11.9 Type 2 diabetes mellitus without complications; A41.9 Sepsis, unspecified organism; R00.0 Tachycardia, unspecified; D72.829 Elevated white blood cell count, unspecified; D63.1 Anemia in chronic kidney disease; N28.9 Disorder of kidney and ureter, unspecified; K52.9 Noninfective gastroenteritis and colitis, unspecified; J18.9 Pneumonia, unspecified organism; Z89.022 Acquired absence of left finger(s); Z98.890 Other specified postprocedural states; Z90.49 Acquired absence of other specified parts of digestive tract; Z79.899 Other long term (current) drug therapy; Z79.4 Long term (current) use of insulin
CPT/HCPCS: 36415; 80053; 85025; 88305; 88312; 96413; 99213

== ENCOUNTER → 2019-11-27 | Outpatient (CLI) | payer BC ==
[~2019-11-27] MED LIST changes: -NIVOLUMAB 480 MG in NS (IVPB) CANCER CENTER 100 ML IV SCH; -NS (IVPB) CANCER CENTER 250 ML IV SCH; -NS IV 1000 ML (CANCER CTR) IV SCH
--- NOTE | 2019-11-27 15:35 | Diagnostic Imaging Report ---
PROCEDURE: CT chest and abdomen without contrast. TECHNIQUE: Axial images were obtained from the thoracic inlet through the iliac crest without the administration of intravenous contrast. Auto Exposure Controls were utilized during the CT exam to meet ALARA standards for radiation dose reduction. INDICATION: Renal cell carcinoma. FINDINGS: The previous CT chest, abdomen, and pelvis exam of 08/14/2019 noted a 3 x 6 mm nodule in the left upper lobe/lingula. That finding is again evident and does not seem to have changed significantly (image 49 series 2). The 3 mm nodule in the posterior aspect of the left upper lung seen previously does not appear to have changed significantly either (image 27 series 2). Also, the wispy area of increased density in the anterior aspect of the left upper lung noted on the prior exam is essentially no different (image 26 series 2). There is no new parenchymal mass identified to indicate metastatic disease. There are chronic pulmonary changes present. These are similar to the prior exam. There is no sign of failure, pneumonia, or pleural effusion to indicate an acute abnormality. The heart is stable in size. Coronary artery calcifications are noted. The aorta is not abnormally dilated. The 1.5 cm precarinal node on the right noted previously now measures 1.6 cm. The other smaller nodes in the mediastinum are no different. The thyroid gland is not well visualized. The images through the abdomen show that the liver is not enlarged. There is no focal mass involving the liver to suggest metastatic disease but the evaluation of the liver is limited as intravenous contrast was not administered. The pneumobilia seen on the prior exam has nearly completely resolved. As noted on the previous exam, the gallbladder is surgically absent. The spleen, pancreas, right kidney, aorta, and inferior vena cava are unremarkable for an acute abnormality. The large 5.0 x 6.3 cm hiatal hernia seen on the prior study is again evident. The left kidney is surgically absent. There is no mass in the left renal fossa to suggest recurrent neoplasm. There is no periaortic or retroperitoneal adenopathy noted. The prior exam did raise a question of enteritis. There is no clear evidence for an inflammation/infection of the small bowel on this study. The bone windows show no sign of a fracture or of a destructive lesion. IMPRESSION: 1. The small pulmonary nodules noted on the prior study are again evident and do not appear to have changed significantly. No new parenchymal lung mass has developed to suggest metastatic disease. There is no sign of a recurrent mass in the left renal fossa either. 2. There is no acute abnormality of the chest, abdomen, or pelvis. Dictated by: Dictated on workstation # [id number]
== END ==
LOC: RAD 13:36
PROVIDERS: ATTEND Internal Medicine Hematology & Oncology
DX: C64.1 Malignant neoplasm of right kidney, except renal pelvis (principal); C78.01 Secondary malignant neoplasm of right lung
CPT/HCPCS: 71250; 74150

== ENCOUNTER 2020-01-27 15:12 | Outpatient (RCR) | payer BC, OTHER ==
[2019-11-24 15:24] LABS: BASOPHILS % (AUTO) 0 % (0-10); EOSINOPHILS # (AUTO) 0.7 10^3/uL (0.0-0.3); EOSINOPHILS % (AUTO) 8 % (0-10); HEMATOCRIT 36 % (40-54); HEMOGLOBIN 11.1 G/DL (13.3-17.7); LYMPHOCYTES # (AUTO) 2.1 X 10^3 (1.0-4.0); LYMPHOCYTES % (AUTO) 23 % (12-44); MEAN CORPUSCULAR HEMOGLOBIN 29 PG (25-34); MEAN CORPUSCULAR HGB CONC 31 G/DL (32-36); MEAN CORPUSCULAR VOLUME 94 FL (80-99); MEAN PLATELET VOLUME 9.7 FL (7.4-10.4); MONOCYTES # (AUTO) 0.8 X 10^3 (0.0-1.0); MONOCYTES % (AUTO) 9 % (0-12); NEUTROPHILS # (AUTO) 5.4 X 10^3 (1.8-7.8); NEUTROPHILS % (AUTO) 60 % (42-75); PLATELET COUNT 215 10^3/uL (130-400); WHITE BLOOD COUNT 8.9 10^3/uL (4.3-11.0)
[2019-11-24 15:37] LABS: ALBUMIN 4.1 GM/DL (3.2-4.5); POTASSIUM 5.2 MMOL/L (3.6-5.0)
[2019-11-24 15:38] LABS: CALCIUM 9.4 MG/DL (8.5-10.1)
[2019-11-24 15:39] LABS: TOTAL PROTEIN 6.6 GM/DL (6.4-8.2)
[2019-11-24 15:41] LABS: BILIRUBIN,TOTAL 0.4 MG/DL (0.1-1.0)
[2019-11-24 15:43] LABS: CREATININE SERUM 1.62 MG/DL (0.60-1.30)
[2019-12-30 15:44] LABS: BASOPHILS % (AUTO) 0 % (0-10); EOSINOPHILS # (AUTO) 0.6 10^3/uL (0.0-0.3); EOSINOPHILS % (AUTO) 6 % (0-10); HEMATOCRIT 35 % (40-54); LYMPHOCYTES # (AUTO) 2.1 X 10^3 (1.0-4.0); LYMPHOCYTES % (AUTO) 20 % (12-44); MEAN CORPUSCULAR HEMOGLOBIN 30 PG (25-34); MEAN CORPUSCULAR HGB CONC 32 G/DL (32-36); MEAN CORPUSCULAR VOLUME 94 FL (80-99); MEAN PLATELET VOLUME 9.6 FL (7.4-10.4); MONOCYTES % (AUTO) 10 % (0-12); NEUTROPHILS # (AUTO) 6.7 X 10^3 (1.8-7.8); NEUTROPHILS % (AUTO) 64 % (42-75); PLATELET COUNT 242 10^3/uL (130-400); WHITE BLOOD COUNT 10.5 10^3/uL (4.3-11.0)
[2019-12-30 16:05] LABS: ALBUMIN 3.9 GM/DL (3.2-4.5); BILIRUBIN,TOTAL 0.2 MG/DL (0.1-1.0); CALCIUM 9.1 MG/DL (8.5-10.1); CREATININE SERUM 1.42 MG/DL (0.60-1.30); POTASSIUM 5.8 MMOL/L (3.6-5.0); TOTAL PROTEIN 6.5 GM/DL (6.4-8.2)
[~2020-01-27 15:12] MED LIST changes: +NIVOLUMAB 480 MG in NS (IVPB) CANCER CENTER 100 ML IV SCH; +NS (IVPB) CANCER CENTER 250 ML IV SCH; +NS IV 1000 ML (CANCER CTR) IV SCH
[2020-01-27 15:44] LABS: BASOPHILS % (AUTO) 0 % (0-10); EOSINOPHILS # (AUTO) 0.6 10^3/uL (0.0-0.3); EOSINOPHILS % (AUTO) 8 % (0-10); HEMATOCRIT 35 % (40-54); HEMOGLOBIN 11.1 G/DL (13.3-17.7); LYMPHOCYTES # (AUTO) 1.8 X 10^3 (1.0-4.0); LYMPHOCYTES % (AUTO) 22 % (12-44); MEAN CORPUSCULAR HEMOGLOBIN 30 PG (25-34); MEAN CORPUSCULAR HGB CONC 32 G/DL (32-36); MEAN CORPUSCULAR VOLUME 95 FL (80-99); MONOCYTES # (AUTO) 0.8 X 10^3 (0.0-1.0); MONOCYTES % (AUTO) 10 % (0-12); NEUTROPHILS # (AUTO) 5.1 X 10^3 (1.8-7.8); NEUTROPHILS % (AUTO) 61 % (42-75); PLATELET COUNT 219 10^3/uL (130-400); WHITE BLOOD COUNT 8.3 10^3/uL (4.3-11.0)
[2020-01-27 16:08] LABS: ALBUMIN 4.1 GM/DL (3.2-4.5); BILIRUBIN,TOTAL 0.5 MG/DL (0.1-1.0); CALCIUM 9.8 MG/DL (8.5-10.1); CREATININE SERUM 1.65 MG/DL (0.60-1.30); POTASSIUM 5.3 MMOL/L (3.6-5.0); TOTAL PROTEIN 6.5 GM/DL (6.4-8.2)
== END 2020-02-22 | disposition home or self-care (01) ==
LOC: ONC 15:12
PROVIDERS: ATTEND Internal Medicine Hematology & Oncology
DX: Z51.11 Encounter for antineoplastic chemotherapy (principal); C64.1 Malignant neoplasm of right kidney, except renal pelvis; C78.01 Secondary malignant neoplasm of right lung; I12.9 Hypertensive chronic kidney disease with stage 1 through stage 4 chronic kidney disease, or unspecified chronic kidney disease; D63.0 Anemia in neoplastic disease; E11.22 Type 2 diabetes mellitus with diabetic chronic kidney disease; A41.9 Sepsis, unspecified organism; R00.0 Tachycardia, unspecified; D72.829 Elevated white blood cell count, unspecified; D63.1 Anemia in chronic kidney disease; K52.9 Noninfective gastroenteritis and colitis, unspecified; N18.3 Chronic kidney disease, stage 3 (moderate); Z98.890 Other specified postprocedural states; Z90.49 Acquired absence of other specified parts of digestive tract; Z79.899 Other long term (current) drug therapy; Z79.4 Long term (current) use of insulin; Z90.5 Acquired absence of kidney; Z87.01 Personal history of pneumonia (recurrent)
CPT/HCPCS: 80053; 85025; G0463; 36415; 84443; 96413; 99213

== ENCOUNTER → 2020-02-03 | Outpatient (CLI) | payer BC ==
[~2020-02-03] MED LIST changes: -NIVOLUMAB 480 MG in NS (IVPB) CANCER CENTER 100 ML IV SCH; -NS (IVPB) CANCER CENTER 250 ML IV SCH; -NS IV 1000 ML (CANCER CTR) IV SCH
--- NOTE | 2020-02-03 13:32 | Diagnostic Imaging Report ---
PROCEDURE: US Scrotum. TECHNIQUE: Multiple Real-time grayscale images were obtained over the scrotum in various projections bilaterally. INDICATION: Swelling left scrotum. FINDINGS: The right testicle measures 4.9 x 2.4 x 2.3 cm. The left testicle measures 5.2 x 2.9 x 2.9 cm. Both testicles show a homogeneous appearance without evidence of mass. There is normal blood flow to both testes. The epididymides appear normal bilaterally. There is a small hydrocele on the right with a moderate hydrocele on the left. No evidence of varicoceles. IMPRESSION: 1. Bilateral hydroceles, larger on the left. 2. The testicles and epididymides appear normal. Dictated by: Dictated on workstation # [id number]
== END ==
LOC: RAD 12:16
PROVIDERS: ATTEND Physician Assistant
DX: N43.3 Hydrocele, unspecified (principal)
CPT/HCPCS: 76870

== ENCOUNTER 2020-02-18 16:07 | Emergency (ER) | payer BC ==
[~2020-02-18] VITALS: Ht 193 cm; Wt 95.2 kg
[2020-02-18] MEDS ORDERED: NITROGLYCERIN 0.4 MG SL TABS BTL 25'S SL PRN (16:15)
[2020-02-18] MEDS ORDERED: ASPIRIN 81 MG CHEW (CHILDREN'S ASA) PO ONE (16:15)
--- NOTE | 2020-02-18 16:37 | ED Cardiac General ---
History of Present Illness General Stated Complaint: CHEST PAIN,SOB Source: patient, old records (KENDELL HERNANDEZ DO) History of Present Illness Date Seen by Provider: Feb 18, 2020 Time Seen by Provider: 16:15 Initial Comments PT ARRIVES VIA POV FROM HOME C/O LEFT CHEST PAIN AND SHORTNESS OF BREATH SINCE SATURDAY PAIN IS WORSE WITH EXERTION, COUGHING AND DEEP BREATHS--RATES PAIN 5/10 AT REST, UP TO 9/10 WITH EXERTION, COUGH OR DEEP BREATHS BEGAN HAVING A PRODUCTIVE COUGH TODAY--WHITE TO YELLOW SPUTUM NO FEVER/SWEATS/CHILLS NO CHANGE IN CHRONIC LEG SWELLING--LEFT LEG IS ALWAYS SWOLLEN/LARGER THAN RIGHT DUE TO OLD INJURY NO PALPITATIONS OR SYNCOPE HAS NOT TAKEN ANYTHING FOR PAIN AT ANY TIME PT HAS COPD BUT HAS NOT USED INHALER TODAY STILL SMOKES-1 PACK/DAY NO HISTORY OF CARDIAC PROBLEMS, BUT HAS HTN, HYPERLIPIDEMA AND IS INSULIN- DEPENDENT PLUS ORAL MEDICATION DEPENDENT DIABETIC. PT HAS RENAL CANCER WITH METS TO LUNGS, AND IS GETTING MONTHLY IV CHEMO--LAST TREATMENT WAS LAST MONTH PT STATES HE WAS MOVING SOME FURNITURE ON SATURDAY AND IN AN AREA WITH ALOT OF RATS/RAT FECES NO KNOWN SICK CONTACTS OR KNOWN EXPOSURE TO COVID-19 PCP: DR. CALLEJAS (KENDELL HERNANDEZ DO) Allergies and Home Medications Allergies Coded Allergies: meperidine (Verified Allergy, Mild, RASH, Pt has received Fentanyl w/o issue, 12/15/18) Home Medications Ascorbic Acid 500 Mg Tablet, 500 MG PO DAILY, (Reported) Calcium Carbonate/Vitamin D3 1 Each Tablet, 1 TAB PO BID, (Reported) Cholecalciferol (Vitamin D3) 2,000 Unit Capsule, 2,000 UNIT PO DAILY, (Reported) Colestipol HCl 1 Gm Tablet, 2 GM PO BID, (Reported) TAKES 2 (1GM) TABLET Doxycycline Hyclate 100 Mg Tablet, 100 MG PO BID Prescribed by: MORGAN MARIE on 06/28/19 1425 Famotidine 20 Mg Tablet, 20 MG PO BID Prescribed by: KRISTIAN RICHARDS on 12/27/18 1722 Ferrous Sulfate 325 Mg Tablet, 325 MG PO BID, (Reported) Gabapentin 300 Mg Capsule, 300 MG PO TID, (Reported) Glimepiride 4 Mg Tablet, 4 MG PO BID, (Reported) Hydrocodone Bit/Acetaminophen 1 Each Tablet, 1 TAB PO Q4-6HR PRN for PAIN- MODERATE, (Reported) Insulin Detemir 100 Unit/1 Ml Insuln.pen, 20 UNITS SC HS, (Reported) Krill/Om-3/Dha/Epa/Phospho/Ast 1 Each Capsule, 1 CAP PO DAILY, (Reported) Lactobacillus Combo No.11 1 Each Cap.sprink, 1 EACH PO DAILY, (Reported) Lisinopril 20 Mg Tablet, 20 MG PO DAILY, (Reported) Lutein 20 Mg Tablet, 40 MG PO BID, (Reported) Magnesium Oxide 400 Mg Tablet, 400 MG PO DAILY, (Reported) Metformin HCl 500 Mg Tablet, 500 MG PO BID, (Reported) Prednisone 20 Mg Tab, 40 MG PO DAILY Prescribed by: KRISTIAN RICHARDS on 12/27/18 1722 Flako AC/Safflower Oil 52 Ml Oil, TP BID, (Reported) APPLY TO SCARS [Garamycin Opth] , 3 DROPS EACH EAR BID Prescribed by: NOHEMY MILLAN on 12/19/18 1212 Patient Home Medication List Home Medication List Reviewed: Yes (MORGAN MARIE MD) Review of Systems Review of Systems Constitutional: no symptoms reported; No chills, No diaphoresis, No fever EENTM: No Symptoms Reported Respiratory: See HPI, Cough, Shortness of Air, SOA With Exertion Cardiovascular: See HPI, Chest Pain, Edema (PER HPI); Denies Irregular Heart Rate, Denies Lightheadedness, Denies Palpitations, Denies Syncope Gastrointestinal: No Symptoms Reported; Denies Abdominal Pain, Denies Diarrhea, Denies Nausea, Denies Vomiting Genitourinary: No Symptoms Reported Musculoskeletal: no symptoms reported Skin: no symptoms reported Psychiatric/Neurological: No Symptoms Reported Endocrine: No Symptoms Reported Hematologic/Lymphatic: No Symptoms Reported (KENDELL HERNANDEZ DO) Past Lqljary-Jaltpd-Fcgkyo Hx Past Med/Social Hx: Reviewed and Corrections made (KENDELL HERNANDEZ DO) Patient Social History Alcohol Use: Denies Use Recreational Drug Use: No Smoking Status: Current Everyday Smoker (1 PACK/DAY) Type Used: Cigarettes 2nd Hand Smoke Exposure: Yes Recent Hopitalizations: No (KENDELL HERNANDEZ DO) Immunizations Up To Date Tetanus Booster (TDap): More than 5yrs Date of Pneumonia Vaccine: Sep 08, 2014 Date of Influenza Vaccine: Mar 03, 2018 (KENDELL HERNANDEZ DO) Seasonal Allergies Seasonal Allergies: No (KENDELL HERNANDEZ DO) Past Medical History Surgeries: Yes (BILAT TKR, BMT, HERNIA X2;CATARACTS;THUMB SURGERY;L NEPHRECTOMY;LUNG BX) Abdominal, Ear Surgery, Eye Surgery, Gallbladder, Joint Replacement, Nephrectomy, Orthopedic Respiratory: Yes (LUNG BIOPSY/PNEUMOTHORAX; LUNG CANCER) Pneumonia, Chronic Bronchitis Currently Using CPAP: No Currently Using BIPAP: No Cardiac: Yes Hypertension, Rheumatic Fever Neurological: No Reproductive Disorders: No HIV/AIDS: No Genitourinary: Yes (RENAL CANCER--LEFT NEPHRECTOMY) Gastrointestinal: Yes Chronic Diarrhea, Polyps Musculoskeletal: Yes (FX L LEG,CLAVICLE,RIBS,FOOT; KNEE SX/SCREWS;OSTEOARTHRITIS KNEES/BILAT TKR) Degenerate Disk Disease, Arthritis, Chronic Back Pain, Fractures Endocrine: Yes (INSULIN + ORAL MEDICATIONS) Diabetes, Insulin dep HEENT: Yes (GLASSES, PARTIAL ) Cataract Loss of Vision: Denies Hearing Impairment: Hard of Hearing Cancer: Yes (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) Lung, Kidney Did You Recieve Any Treatments: Yes (CHEMO FOR LUNG CA/METS; LEFT NEPHRECOMTY FOR RENAL CA 2013) What Type of Treatment Did You: Chemotherapy, Surgical Intervention Psychosocial: No Integumentary: No Blood Disorders: No Adverse Reaction/Blood Tranf: No (N/A) (KENDELL HERNANDEZ DO) Family Medical History Diabetes mellitus 19 FATHER 19 MOTHER G8 BROTHER FH: skin cancer 19 MOTHER Family history: Arthritis Family history: Coronary thrombosis Family history: Diabetes mellitus History of - respiratory disease No Family History of: Abdominal aortic aneurysm [place]'s disease Alcoholism Aphasia Cancer Cancer of colon Cataract Chest pain Congenital heart disease Congestive heart failure Cystic fibrosis Dementia Dysphagia Family history: Allergy Family history: Alzheimer's disease Family history: Asthma Family history: Breast disease Family history: Cardiovascular disease Family history: Gastrointestinal disease Family history: Glaucoma Family history: Hypertension Family history: Osteoporosis Family history: Thyroid disorder Headache Hearing loss Heart disease Hereditary disease History of - anemia History of - disorder History of drug abuse Human immunodeficiency virus (HIV) seropositivity Hypercholesterolemia Infertile Kidney disease Malignant neoplasm of lung Myocardial infarction Parkinson's disease Prostate cancer Psychotic disorder Seizure disorder Stroke Tuberculosis Visual impairment No Pertinent Family Hx SOCIAL HISTORY: -ETOH--DENIES USE -SMOKES 1 PPD -DRUGS--DENIES USE PSH: -HERNIA REPAIR X 2 -BILATERAL MYRINGOTOMY TUBES -CARPAL TUNNEL SURGERY -BILATERAL CATARACT SURGERY -SCREWS IN KNEE AND LATER REMOVED -BILATERAL KNEE REPLACEMENTS 2013 -LEFT NEPHRECTOMY FOR CANCER 2013 -LUNG BIOPSY WITH PNEUMOTHORAX (KENDELL HERNANDEZ DO) Physical Exam Vital Signs Vital Signs - First Documented 02/18/20 02/18/20 16:15 16:20 Temp 36.8 Pulse 84 Resp 18 B/P (MAP) 149/80 (103) Pulse Ox 94 O2 Delivery Room Air O2 Flow Rate 2.00 (MORGAN MARIE MD) Vital Signs Capillary Refill : (KENDELL HERNANDEZ DO) Height, Weight, BMI Height: 6'4.00" Weight: 203lbs. 5.0oz. 92.413206eg; 27.00 BMI Method:Stated General Appearance: No Apparent Distress, WD/WN, Other (VERY FLAT AFFECT) HEENT: PERRL/EOMI Neck: Full Range of Motion, Normal Inspection, Non Tender, Supple; No Carotid Bruit, No JVD Respiratory: Normal Breath Sounds, No Accessory Muscle Use, No Respiratory Distress Cardiovascular: Regular Rate, Rhythm, No JVD, No Murmur, Normal Peripheral Pulses Gastrointestinal: Non Tender, Soft Extremity: Normal Capillary Refill, Non Tender, No Calf Tenderness, Other (TR [place] EDEMA ON RIGHT, 1+ EDEMA ON LEFT--PT STATES IS NORMAL DUE TO OLD L LEG INJURY) Neurologic/Psychiatric: Alert, Oriented x3, No Motor/Sensory Deficits, 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 Norm as Tested Skin: Normal Color, Warm/Dry; No Rash (KENDELL HERNANDEZ DO) Procedures/Interventions Date of ETT Placement: May 07, 2018 Time of ETT Placement: 2339 (KENDELL HERNANDEZ DO) Progress/Results/Core Measures Results/Orders Lab Results Laboratory Tests Test 02/18/20 16:05 02/18/20 16:30 02/18/20 17:28 02/18/20 19:33 Range/Units Coronavirus 2019 (JOSE CARLOS) Negative Negative White Blood Count 8.5 4.3-11.0 10^3/uL Red Blood Count 3.72 L 4.35-5.85 10^6/uL Hemoglobin 11.3 L 13.3-17.7 G/DL Hematocrit 36 L 40-54 % Mean Corpuscular Volume 95 80-99 FL Mean Corpuscular Hemoglobin 30 25-34 PG Mean Corpuscular Hemoglobin Concent 32 32-36 G/DL Red Cell Distribution Width 13.7 10.0-14.5 % Platelet Count 216 130-400 10^3/uL Mean Platelet Volume 9.8 7.4-10.4 FL Neutrophils (%) (Auto) 53 42-75 % Lymphocytes (%) (Auto) 25 12-44 % Monocytes (%) (Auto) 11 0-12 % Eosinophils (%) (Auto) 10 0-10 % Basophils (%) (Auto) 0 0-10 % Neutrophils # (Auto) 4.5 1.8-7.8 X 10^3 Lymphocytes # (Auto) 2.2 1.0-4.0 X 10^3 Monocytes # (Auto) 1.0 0.0-1.0 X 10^3 Eosinophils # (Auto) 0.9 H 0.0-0.3 10^3/uL Basophils # (Auto) 0.0 0.0-0.1 10^3/uL Erythrocyte Sedimentation Rate 10 0-30 MM/HR Prothrombin Time 13.4 12.2-14.7 SEC INR Comment 1.0 0.8-1.4 Activated Partial Thromboplast Time 30 24-35 SEC D-Dimer 0.99 H 0.00-0.49 UG/ML Sodium Level 136 135-145 MMOL/L Potassium Level 5.6 H 3.6-5.0 MMOL/L Chloride Level 105 98-107 MMOL/L Carbon Dioxide Level 25 21-32 MMOL/L Anion Gap 6 5-14 MMOL/L Blood Urea Nitrogen 23 H 7-18 MG/DL Creatinine 1.51 H 0.60-1.30 MG/DL Estimat Glomerular Filtration Rate 47 BUN/Creatinine Ratio 15 Glucose Level 138 H 70-105 MG/DL Calcium Level 9.0 8.5-10.1 MG/DL Corrected Calcium 9.1 8.5-10.1 MG/DL Magnesium Level 1.7 1.6-2.4 MG/DL Total Bilirubin 0.4 0.1-1.0 MG/DL Aspartate Amino Transf (AST/SGOT) 18 5-34 U/L Alanine Aminotransferase (ALT/SGPT) 18 0-55 U/L Alkaline Phosphatase 67 40-136 U/L Lactate Dehydrogenase 155 125-220 U/L Total Creatine Kinase 190 30-200 U/L Creatine Kinase MB 7.7 *H 5.7 <6.6 NG/ML Myoglobin 102.2 H 100.4 H 10.0-92.0 NG/ML Troponin I < 0.028 < 0.028 <0.028 NG/ML C-Reactive Protein High Sensitivity 0.14 0.00-0.50 MG/DL B-Type Natriuretic Peptide 26.2 <100.0 PG/ML Total Protein 6.6 6.4-8.2 GM/DL Albumin 3.9 3.2-4.5 GM/DL Amylase Level 78 25-125 U/L Lipase 20 8-78 U/L Procalcitonin 0.05 <0.10 NG/ML (MORGAN MARIE MD) My Orders Orders - MORGAN MARIE MD Creatine Kinase Mb (02/18/20 19:29) Troponin I (02/18/20 19:29) Myoglobin Serum (02/18/20 19:29) (MORGAN MARIE MD) Medications Given in ED Current Medications Medications Dose Ordered Sig/Bonnie Route Start Time Stop Time Status Last Admin Dose Admin Aspirin 324 mg ONCE ONCE PO 02/18/20 16:15 02/18/20 16:16 DC 02/18/20 16:32 324 MG Iohexol 100 ml ONCE ONCE IV 02/18/20 18:15 02/18/20 18:20 DC 02/18/20 18:24 79 ML Ketorolac Tromethamine 30 mg ONCE ONCE IVP 02/18/20 17:15 02/18/20 17:16 DC 02/18/20 17:26 30 MG Nitroglycerin 1 TAB Q 5 MIN X 3 NEEDED PRN SL 02/18/20 16:15 02/18/20 16:33 0.4 MG Sodium Chloride 100 ml ONCE ONCE IV 02/18/20 18:15 02/18/20 18:20 DC 02/18/20 18:24 80 ML (MORGAN MARIE MD) Vital Signs/I&O 02/18/20 02/18/20 16:15 16:20 Temp 36.8 Pulse 84 Resp 18 B/P (MAP) 149/80 (103) Pulse Ox 94 97 O2 Delivery Room Air Nasal Cannula O2 Flow Rate 2.00 (MORGAN MARIE MD) Progress Progress Note : Progress Note PT PLACED IN ISOLATION ROOM PPE WORN AT ALL TIMES COVID-19 TESTING PERFORMED GIVEN ASPIRIN 324 MG AND NITROGLYCERINE SL X1 NTG DROPPED BP TO 98 SYSTOLICE--UP WITH IV FLUIDS, AND PT REPORTS NO IMPROVEMENT IN PAIN GIVEN TORADOL 1800--CARE TURNED OVER TO DR. MARIE, CT PENDING (KENDELL HERNANDEZ DO) Progress Note : Progress Note 1829: I talked with the patient after he returned from CT scan and discussed options for further evaluation including potentially staying in the hospital. Patient states he does not really want to stay in the hospital on like to do whatever he could to not stay. Patient does have significant history with diabetes and renal cell carcinoma with metastasis to the lung. Patient really believes this is muscular in origin. We did discuss various options including repeat testing but we would like to do that at approximately the 3 hour kae at a minimum. Patient was okay with that. 1927: Repeat troponin, myoglobin and CK- MB ordered for reference evaluation. Patient did get repeat IV fluids. We did discuss the fact that he needs to remain quarantine until test results are noted. He is working on calling his job to let them know. Monitor patient. 2034: Repeat labs negative or improved. I did discuss the case with Dr. Chiu. Patient would like to go home. I was able to get appointment with Dr. Chiu for Saturday at 310 or 3:20 PM. Patient will call tomorrow and he states that he can do that. I did rediscuss with the patient regarding isolation until test results noted. Also return precautions were discussed. Discharged home with return precautions. Patient verbalize understanding instructions and agreement with plan. (MORGAN MARIE MD) Initial ECG Impression Date: Feb 18, 2020 Initial ECG Impression Time: 16:20 Initial ECG Rate: 70 Initial ECG Rhythm: Normal Sinus (IVCD) Initial ECG Comparisson: Unchanged (KENDELL HERNANDEZ DO) Diagnostic Imaging Comments CXR--PER RADIOLOGIST REPORT AT 1800 FINDINGS: The heart is slightly prominent. There is a small to moderate hiatal hernia. Mild prominence of the pulmonary vasculature. The visualized lungs clear. Blunted left costophrenic angle, perhaps due to a very small effusion. There is no pneumothorax. IMPRESSION: 1. Mild pulmonary vascular congestion. 2. Other findings as above. Reviewed: Reviewed by Me (KENDELL HERNANDEZ DO) Diagonstic Imaging: Xray Plain Films/CT/US/NM/MRI: chest Diagonstic Imaging: CT Plain Films/CT/US/NM/MRI: chest Comments [facility] [place], [place] NAME: JAROD LOJA [facility] REC#: [id number] PT STATUS: REG ER : 1955 PHYSICIAN: KENDELL HRENANDEZ DO ADMIT DATE: 02/18/20/ER Signed Date of Exam:02/18/20 CT ANGIO CHEST W PROCEDURE: CT angiography of the chest with contrast. TECHNIQUE: Multiple contiguous axial images were obtained through the chest after uneventful bolus administration of intravenous contrast. 3D reconstructed CTA MIP acquisitions were also performed. Auto Exposure Controls were utilized during the CT exam to meet ALARA standards for radiation dose reduction. INDICATION: High clinical index of suspicion for PE. FINDINGS: There is well opacified pulmonary arterial branches, bilaterally. They show no filling defect, no thrombus or PE identified. The aorta is nonaneurysmal and nonacute. There is no intracardiac chamber mass or thrombus. There is a moderately large retrocardiac hiatal hernia. There is some chronic pleural plaquing at the right base as a benign finding. No suspicious lung mass. No lobar consolidation. There are biapical and paraseptal cyst formations and symmetrical air trapping. No finding of mulu edema or pneumonia. No effusion or pneumothorax. The visualized upper abdomen demonstrates an apparent previous left nephrectomy air within the left hepatic lobe is presumed to reflect pneumobilia from previous biliary intervention. IMPRESSION: Negative for PE or acute aortic disease. Retrocardiac hernia and emphysema noted. Dictated by: Dictated on workstation # [id number] Dict: 02/18/201825 Trans: 02/18/201911 PJE [id number] Interpreted by: VERNELL GRANADOS Electronically signed by: VERNELL GRANADOS 02/18/201911 (MORGAN MARIE MD) Departure Impression Primary Impression: CHEST PAIN Additional Impression: Person under investigation for COVID-19 Disposition: 01 HOME, SELF-CARE Condition: Stable Departure-Patient Inst. Decision time for Depature: 20:36 (MORGAN MARIE MD) Referrals: GE[place] CHIU MD, JOHN D MD (PCP/Family) Primary Care Physician Patient Instructions: Chest Pain (DC), Coronavirus Disease 2019 (COVID-19) Tests Add. Discharge Instructions: Drink plenty of fluids and get plenty of rest. You will need to remain on quarantine until test results are noted. If they are negative, you will need to be isolated for 3 days after symptoms resolve. If they are positive, the health department will call you and direct quarantine timeframe. You may take Tylenol/acetaminophen 1000 mg every 8 hours as needed for fever. You should call Dr. Chiu's office and set up appointment for Saturday at 3:10 or 3:20 PM with him for recheck and further evaluation. Let the staff know that your case was discussed with him and he wants to see you at that time. Return for worse pain, fever, vomiting, weakness, breathing problems or other concerns as needed. Copy Copies To 1: GEORGIA CHIU MD Copies To 2: SHAWN CALLEJAS MD, LISA K DO Feb 18, 2020 16:37 MORGAN MARIE MD Feb 18, 2020 19:29
--- NOTE | 2020-02-18 16:40 | NUR ---
Pt reports no change in chest pain after one nitro.
[2020-02-18 16:48] LABS: BASOPHILS % (AUTO) 0 % (0-10); EOSINOPHILS # (AUTO) 0.9 10^3/uL (0.0-0.3); EOSINOPHILS % (AUTO) 10 % (0-10); HEMATOCRIT 36 % (40-54); HEMOGLOBIN 11.3 G/DL (13.3-17.7); LYMPHOCYTES # (AUTO) 2.2 X 10^3 (1.0-4.0); LYMPHOCYTES % (AUTO) 25 % (12-44); MEAN CORPUSCULAR HEMOGLOBIN 30 PG (25-34); MEAN CORPUSCULAR HGB CONC 32 G/DL (32-36); MEAN CORPUSCULAR VOLUME 95 FL (80-99); MEAN PLATELET VOLUME 9.8 FL (7.4-10.4); MONOCYTES % (AUTO) 11 % (0-12); NEUTROPHILS # (AUTO) 4.5 X 10^3 (1.8-7.8); NEUTROPHILS % (AUTO) 53 % (42-75); PLATELET COUNT 216 10^3/uL (130-400); WHITE BLOOD COUNT 8.5 10^3/uL (4.3-11.0)
[2020-02-18] MEDS ORDERED: NS IV 1000 ML 1,000 ML IV SCH ×2 (16:52→17:26)
[2020-02-18 17:02] LABS: ALANINE AMINOTRANSFERASE 18 U/L (0-55); ALBUMIN 3.9 GM/DL (3.2-4.5); ALKALINE PHOSPHATASE 67 U/L (40-136); AMYLASE 78 U/L (25-125); BILIRUBIN,TOTAL 0.4 MG/DL (0.1-1.0); BUN/CREATININE RATIO 15; CARBON DIOXIDE 25 MMOL/L (21-32); CHLORIDE 105 MMOL/L (98-107); CREATINE KINASE 190 U/L (30-200); CREATININE SERUM 1.51 MG/DL (0.60-1.30); GFR ESTIMATED 47; GLUCOSE 138 MG/DL (70-105); LIPASE 20 U/L (8-78); MAGNESIUM 1.7 MG/DL (1.6-2.4); POTASSIUM 5.6 MMOL/L (3.6-5.0); SODIUM 136 MMOL/L (135-145); TOTAL PROTEIN 6.6 GM/DL (6.4-8.2)
[2020-02-18 17:13] LABS: FIBRIN DEGRADATION PRODUCTS 0.99 UG/ML (0.00-0.49); PROTHROMBIN TIME PATIENT 13.4 SEC (12.2-14.7)
[2020-02-18] MEDS ORDERED: KETOROLAC 30 MG/ML VIAL IVP ONE (17:15)
[2020-02-18 17:25] LABS: CREATINE KINASE MB 7.7 NG/ML (<6.6)
[2020-02-18 17:32] LABS: ERYTHROCYTE SEDIMENTATION RATE 10 MM/HR (0-30)
--- NOTE | 2020-02-18 17:33 | Diagnostic Imaging Report ---
INDICATION: Left-sided pain, injury. EXAMINATION: Chest 02/18/2020 FINDINGS: The heart is slightly prominent. There is a small to moderate hiatal hernia. Mild prominence of the pulmonary vasculature. The visualized lungs clear. Blunted left costophrenic angle, perhaps due to a very small effusion. There is no pneumothorax. IMPRESSION: 1. Mild pulmonary vascular congestion. 2. Other findings as above. Dictated by: Dictated on workstation # [id number]
[2020-02-18] MEDS ORDERED: NS 100 ML (IVPB) BAG IV ONE (18:15)
[2020-02-18] MEDS ORDERED: IOHEXOL 350 MG/ML 100 ML (OMNIPAQUE 350) VIAL IV ONE (18:15)
[2020-02-18] MEDS ORDERED: HOLD METFORMIN - RECEIVED CONTRAST 20 ML VIAL IV SCH (18:15)
--- NOTE | 2020-02-18 18:59 | Diagnostic Imaging Report ---
PROCEDURE: CT angiography of the chest with contrast. TECHNIQUE: Multiple contiguous axial images were obtained through the chest after uneventful bolus administration of intravenous contrast. 3D reconstructed CTA MIP acquisitions were also performed. Auto Exposure Controls were utilized during the CT exam to meet ALARA standards for radiation dose reduction. INDICATION: High clinical index of suspicion for PE. FINDINGS: There is well opacified pulmonary arterial branches, bilaterally. They show no filling defect, no thrombus or PE identified. The aorta is nonaneurysmal and nonacute. There is no intracardiac chamber mass or thrombus. There is a moderately large retrocardiac hiatal hernia. There is some chronic pleural plaquing at the right base as a benign finding. No suspicious lung mass. No lobar consolidation. There are biapical and paraseptal cyst formations and symmetrical air trapping. No finding of mulu edema or pneumonia. No effusion or pneumothorax. The visualized upper abdomen demonstrates an apparent previous left nephrectomy air within the left hepatic lobe is presumed to reflect pneumobilia from previous biliary intervention. IMPRESSION: Negative for PE or acute aortic disease. Retrocardiac hernia and emphysema noted. Dictated by: Dictated on workstation # [id number]
[2020-02-18 20:06] LABS: CREATINE KINASE MB 5.7 NG/ML (<6.6)
[2020-02-18 20:42] VITALS: BP 131/68
--- NOTE | 2020-02-20 18:12 | NUR ---
pt called for lab results. informed pt that covid test both neg.
== END 2020-02-18 20:42 | disposition home or self-care (01) ==
LOC: EDUNIT# 16:07 → ER 16:08
DX: R07.89 Other chest pain (principal); C64.2 Malignant neoplasm of left kidney, except renal pelvis; C78.00 Secondary malignant neoplasm of unspecified lung; I10 Essential (primary) hypertension; E11.9 Type 2 diabetes mellitus without complications; J44.9 Chronic obstructive pulmonary disease, unspecified; G89.29 Other chronic pain; M54.9 Dorsalgia, unspecified; F17.210 Nicotine dependence, cigarettes, uncomplicated; Z91.14 Patient's other noncompliance with medication regimen; Z88.5 Allergy status to narcotic agent; Z79.4 Long term (current) use of insulin; Z20.828 Contact with and (suspected) exposure to other viral communicable diseases; Z79.52 Long term (current) use of systemic steroids; Z96.653 Presence of artificial knee joint, bilateral; Z80.8 Family history of malignant neoplasm of other organs or systems; Z82.49 Family history of ischemic heart disease and other diseases of the circulatory system; Z82.61 Family history of arthritis
CPT/HCPCS: 71045; 71275; 80053; 82150; 82550; 82553; 83615; 83690; 83735; 83874; 83880; 84145; 84484; 85025; 85379; 85610; 85652; 85730; 86141; 93005; 93041; 99284; U0002; 36415; 87635

== ENCOUNTER → 2020-03-01 | Outpatient (CLI) | payer BC | LOC: CARD 10:00 | PROVIDERS: ATTEND Internal Medicine Cardiovascular Disease | DX: I11.9 Hypertensive heart disease without heart failure (principal); E11.9 Type 2 diabetes mellitus without complications; J44.9 Chronic obstructive pulmonary disease, unspecified; F17.201 Nicotine dependence, unspecified, in remission | CPT/HCPCS: 93306 ==

== ENCOUNTER → 2020-03-09 | Outpatient (CLI) | payer BC ==
[~2020-03-09] VITALS: Ht 188 cm; Wt 90.0 kg
[~2020-03-09] MED LIST changes: +CATHETER FLUSH 10 ML SYR IV PRN; +REGADENOSON 0.4 MG/5 ML SYR (LEXISCAN) IV ONE
[2020-03-09 13:36] VITALS: BP 131/70
--- NOTE | 2020-03-09 15:54 | Cardiology Stress Test Report ---
Stress Test Report Date of Procedure/Referring: Date of Procedure: Mar 09, 2020 PCP Georgia Chiu MD Admitting Physician Sha Clayton MD Indications: Hypertension Baseline Heart Rate: 47 Baseline Blood Pressure: Blood Pressure Systolic: 131 Blood Pressure Diastolic: 70 Baseline Vitals Vital Signs Date Time Temp Pulse Resp B/P (MAP) Pulse Ox O2 Delivery O2 Flow Rate FiO2 03/09/20 13:36 48 18 131/70 (90) 97 Room Air Baseline EKG: Baseline EKG: normal sinus rhythm, right bundle branch block, occasional PVC Summary After explaining the procedure to the patient, he signed a consent and then brought to the stress nuclear laboratory. Patient received 0.4 mg Lexiscan for stress test, ECG, heart rate and blood pressure were monitored continuously. Resting and stress dose of radio tracer were injected, imaging was acquired and reviewed in short axis, horizontal long axis and vertical long axis views. TID: 1.05 SSS: 4 SDS: 4 EF: 49 1. Patient tolerated Lexiscan well 2. Diaphragmatic attenuation with decreased uptake at the inferior wall, typical male pattern, mild ischemia at the true apex. 3. Normal left ventricular size, EF 49 percent GEORGIA CHIU MD Mar 09, 2020 15:54
== END ==
LOC: CARD 12:00
PROVIDERS: ATTEND Internal Medicine Cardiovascular Disease
DX: J44.9 Chronic obstructive pulmonary disease, unspecified (principal); E11.9 Type 2 diabetes mellitus without complications; I10 Essential (primary) hypertension; F17.201 Nicotine dependence, unspecified, in remission
CPT/HCPCS: 78452; 93017; A9502

== ENCOUNTER 2020-05-04 14:21 | Outpatient (RCR) | payer BC, OTHER ==
[2020-04-06 15:51] LABS: BASOPHILS % (AUTO) 0 % (0-10); EOSINOPHILS # (AUTO) 0.7 10^3/uL (0.0-0.3); EOSINOPHILS % (AUTO) 8 % (0-10); HEMATOCRIT 36 % (40-54); HEMOGLOBIN 11.5 g/dL (13.3-17.7); LYMPHOCYTES # (AUTO) 1.9 10^3/uL (1.0-4.0); LYMPHOCYTES % (AUTO) 23 % (12-44); MEAN CORPUSCULAR HEMOGLOBIN 30 pg (25-34); MEAN CORPUSCULAR HGB CONC 32 g/dL (32-36); MEAN CORPUSCULAR VOLUME 95 fL (80-99); MEAN PLATELET VOLUME 9.6 fL (9.0-12.2); MONOCYTES # (AUTO) 0.8 10^3/uL (0.0-1.0); MONOCYTES % (AUTO) 10 % (0-12); NEUTROPHILS # (AUTO) 4.7 10^3/uL (1.8-7.8); NEUTROPHILS % (AUTO) 59 % (42-75); PLATELET COUNT 198 10^3/uL (130-400)
[2020-04-06 16:02] LABS: BILIRUBIN,TOTAL 0.4 MG/DL (0.1-1.0); CREATININE SERUM 1.43 MG/DL (0.60-1.30); TOTAL PROTEIN 6.1 GM/DL (6.4-8.2)
[~2020-05-04 14:21] MED LIST changes: -CATHETER FLUSH 10 ML SYR IV PRN; +NIVOLUMAB 480 MG in NS (IVPB) CANCER CENTER 100 ML IV SCH; +NS (IVPB) CANCER CENTER 250 ML IV SCH; +NS IV 1000 ML (CANCER CTR) IV SCH; -REGADENOSON 0.4 MG/5 ML SYR (LEXISCAN) IV ONE
[2020-05-04 14:56] LABS: BASOPHILS % (AUTO) 0 % (0-10); EOSINOPHILS # (AUTO) 0.4 10^3/uL (0.0-0.3); EOSINOPHILS % (AUTO) 5 % (0-10); HEMATOCRIT 38 % (40-54); HEMOGLOBIN 12.4 g/dL (13.3-17.7); LYMPHOCYTES # (AUTO) 1.6 10^3/uL (1.0-4.0); LYMPHOCYTES % (AUTO) 18 % (12-44); MEAN CORPUSCULAR HEMOGLOBIN 30 pg (25-34); MEAN CORPUSCULAR HGB CONC 33 g/dL (32-36); MEAN CORPUSCULAR VOLUME 93 fL (80-99); MEAN PLATELET VOLUME 9.7 fL (9.0-12.2); MONOCYTES # (AUTO) 0.8 10^3/uL (0.0-1.0); MONOCYTES % (AUTO) 9 % (0-12); NEUTROPHILS # (AUTO) 5.7 10^3/uL (1.8-7.8); NEUTROPHILS % (AUTO) 67 % (42-75); PLATELET COUNT 227 10^3/uL (130-400); WHITE BLOOD COUNT 8.4 10^3/uL (4.3-11.0)
[2020-05-04 15:17] LABS: ALBUMIN 3.9 GM/DL (3.2-4.5); BILIRUBIN,TOTAL 0.4 MG/DL (0.1-1.0); CALCIUM 9.3 MG/DL (8.5-10.1); CREATININE SERUM 1.32 MG/DL (0.60-1.30); POTASSIUM 4.6 MMOL/L (3.6-5.0); TOTAL PROTEIN 6.5 GM/DL (6.4-8.2)
== END 2020-05-24 | disposition home or self-care (01) ==
LOC: ONC 14:21
PROVIDERS: ATTEND Internal Medicine Hematology & Oncology
DX: C64.1 Malignant neoplasm of right kidney, except renal pelvis (principal); C78.01 Secondary malignant neoplasm of right lung; I12.9 Hypertensive chronic kidney disease with stage 1 through stage 4 chronic kidney disease, or unspecified chronic kidney disease; D63.0 Anemia in neoplastic disease; E11.22 Type 2 diabetes mellitus with diabetic chronic kidney disease; A41.9 Sepsis, unspecified organism; R00.0 Tachycardia, unspecified; D72.829 Elevated white blood cell count, unspecified; K52.9 Noninfective gastroenteritis and colitis, unspecified; N18.31 Chronic kidney disease, stage 3a; D63.1 Anemia in chronic kidney disease; Z98.890 Other specified postprocedural states; Z90.49 Acquired absence of other specified parts of digestive tract; Z79.899 Other long term (current) drug therapy; Z79.4 Long term (current) use of insulin; Z90.5 Acquired absence of kidney; Z87.01 Personal history of pneumonia (recurrent); Z82.49 Family history of ischemic heart disease and other diseases of the circulatory system; Z83.3 Family history of diabetes mellitus
CPT/HCPCS: 36415; 80053; 85025; 96413; 99213

== ENCOUNTER 2020-06-01 15:14 | Outpatient (RCR) | payer BC, OTHER | END 2020-06-06 15:29 | disposition home or self-care (01) | LOC: ONC 15:14 | PROVIDERS: ATTEND Internal Medicine Hematology & Oncology | DX: C64.1 Malignant neoplasm of right kidney, except renal pelvis (principal); C78.01 Secondary malignant neoplasm of right lung; R91.8 Other nonspecific abnormal finding of lung field; Z90.5 Acquired absence of kidney | CPT/HCPCS: 99213 ==

== ENCOUNTER 2020-08-31 15:13 | Outpatient (RCR) | payer BC, OTHER ==
[2020-07-06 15:39] LABS: BASOPHILS % (AUTO) 0 % (0-10); EOSINOPHILS # (AUTO) 0.4 10^3/uL (0.0-0.3); EOSINOPHILS % (AUTO) 6 % (0-10); HEMATOCRIT 38 % (40-54); HEMOGLOBIN 11.8 g/dL (13.3-17.7); LYMPHOCYTES # (AUTO) 1.8 10^3/uL (1.0-4.0); LYMPHOCYTES % (AUTO) 23 % (12-44); MEAN CORPUSCULAR HEMOGLOBIN 30 pg (25-34); MEAN CORPUSCULAR HGB CONC 31 g/dL (32-36); MEAN CORPUSCULAR VOLUME 96 fL (80-99); MEAN PLATELET VOLUME 9.7 fL (9.0-12.2); MONOCYTES # (AUTO) 0.8 10^3/uL (0.0-1.0); MONOCYTES % (AUTO) 10 % (0-12); NEUTROPHILS # (AUTO) 4.8 10^3/uL (1.8-7.8); NEUTROPHILS % (AUTO) 61 % (42-75); PLATELET COUNT 259 10^3/uL (130-400); WHITE BLOOD COUNT 7.8 10^3/uL (4.3-11.0)
[2020-07-06 15:58] LABS: ALBUMIN 4.1 GM/DL (3.2-4.5); BILIRUBIN,TOTAL 0.4 MG/DL (0.1-1.0); CALCIUM 9.7 MG/DL (8.5-10.1); CREATININE SERUM 1.47 MG/DL (0.60-1.30); POTASSIUM 4.6 MMOL/L (3.6-5.0); TOTAL PROTEIN 6.9 GM/DL (6.4-8.2)
[2020-08-03 15:47] LABS: BASOPHILS % (AUTO) 0 % (0-10); EOSINOPHILS # (AUTO) 0.5 10^3/uL (0.0-0.3); EOSINOPHILS % (AUTO) 6 % (0-10); HEMATOCRIT 37 % (40-54); HEMOGLOBIN 11.8 g/dL (13.3-17.7); LYMPHOCYTES # (AUTO) 1.6 10^3/uL (1.0-4.0); LYMPHOCYTES % (AUTO) 22 % (12-44); MEAN CORPUSCULAR HEMOGLOBIN 30 pg (25-34); MEAN CORPUSCULAR HGB CONC 32 g/dL (32-36); MEAN CORPUSCULAR VOLUME 96 fL (80-99); MEAN PLATELET VOLUME 9.7 fL (9.0-12.2); MONOCYTES # (AUTO) 0.7 10^3/uL (0.0-1.0); MONOCYTES % (AUTO) 10 % (0-12); NEUTROPHILS # (AUTO) 4.4 10^3/uL (1.8-7.8); NEUTROPHILS % (AUTO) 61 % (42-75); PLATELET COUNT 211 10^3/uL (130-400); WHITE BLOOD COUNT 7.2 10^3/uL (4.3-11.0)
[2020-08-03 16:06] LABS: ALBUMIN 4.1 GM/DL (3.2-4.5); BILIRUBIN,TOTAL 0.4 MG/DL (0.1-1.0); CALCIUM 9.2 MG/DL (8.5-10.1); CREATININE SERUM 1.34 MG/DL (0.60-1.30); POTASSIUM 4.3 MMOL/L (3.6-5.0); TOTAL PROTEIN 6.6 GM/DL (6.4-8.2)
[~2020-08-31 15:13] MED LIST changes: -LISI-552 PO; +LISI20TA26 PO
[2020-08-31 15:59] LABS: BASOPHILS % (AUTO) 0 % (0-10); EOSINOPHILS # (AUTO) 0.4 10^3/uL (0.0-0.3); EOSINOPHILS % (AUTO) 6 % (0-10); HEMATOCRIT 40 % (40-54); HEMOGLOBIN 12.6 g/dL (13.3-17.7); LYMPHOCYTES # (AUTO) 1.6 10^3/uL (1.0-4.0); LYMPHOCYTES % (AUTO) 21 % (12-44); MEAN CORPUSCULAR HEMOGLOBIN 30 pg (25-34); MEAN CORPUSCULAR HGB CONC 31 g/dL (32-36); MEAN CORPUSCULAR VOLUME 96 fL (80-99); MEAN PLATELET VOLUME 9.9 fL (9.0-12.2); MONOCYTES # (AUTO) 0.8 10^3/uL (0.0-1.0); MONOCYTES % (AUTO) 10 % (0-12); NEUTROPHILS # (AUTO) 4.8 10^3/uL (1.8-7.8); NEUTROPHILS % (AUTO) 62 % (42-75); PLATELET COUNT 217 10^3/uL (130-400); WHITE BLOOD COUNT 7.7 10^3/uL (4.3-11.0)
[2020-08-31 16:11] LABS: ALBUMIN 4.1 GM/DL (3.2-4.5); BILIRUBIN,TOTAL 0.7 MG/DL (0.1-1.0); CALCIUM 9.5 MG/DL (8.5-10.1); CREATININE SERUM 1.48 MG/DL (0.60-1.30); POTASSIUM 5.1 MMOL/L (3.6-5.0); TOTAL PROTEIN 6.6 GM/DL (6.4-8.2)
== END 2020-09-06 | disposition home or self-care (01) ==
LOC: ONC 15:13
PROVIDERS: ATTEND Internal Medicine Hematology & Oncology
DX: C64.1 Malignant neoplasm of right kidney, except renal pelvis (principal); C78.01 Secondary malignant neoplasm of right lung; R91.8 Other nonspecific abnormal finding of lung field; Z90.5 Acquired absence of kidney
CPT/HCPCS: 36415; 80053; 84443; 85025; 96413

== ENCOUNTER → 2020-09-28 | Outpatient (CLI) | payer BC ==
[~2020-09-28] MED LIST changes: -NIVOLUMAB 480 MG in NS (IVPB) CANCER CENTER 100 ML IV SCH; -NS (IVPB) CANCER CENTER 250 ML IV SCH; -NS IV 1000 ML (CANCER CTR) IV SCH
== END ==
LOC: ONC 15:20
PROVIDERS: ATTEND Internal Medicine
DX: E11.9 Type 2 diabetes mellitus without complications (principal)
CPT/HCPCS: 83036

== ENCOUNTER 2020-11-01 09:35 | Emergency (ER) | payer BC, MEDICARE ==
[~2020-11-01] VITALS: Ht 197 cm; Wt 89.8 kg
[2020-11-01] MEDS ORDERED: oxyCODONE/APAP 5/325MG (PERCOCET 5) TABLET PO ONE (10:00)
--- NOTE | 2020-11-01 10:49 | Diagnostic Imaging Report ---
EXAMINATION: CT chest without contrast. TECHNIQUE: Multiple contiguous axial images were obtained through the chest without the use of intravenous contrast. All CT scans use one or more of the following dose optimizing techniques: automated exposure control, MA and/or KvP adjustment based on patient size and exam type or iterative reconstruction. HISTORY: Chest injury, sternal pain COMPARISON: 02/18/2020 FINDINGS: There is no edema or pneumonia. No pleural effusion. No pneumothorax. No suspicious nodules. There is moderate emphysema with scattered areas of scarring or atelectasis in the lungs. There is right middle lobe mucus plugging. Mucus is present in the trachea and mainstem bronchi. There is no axillary or supraclavicular lymphadenopathy. There are unchanged mildly enlarged mediastinal lymph nodes with calcifications consistent with prior granulomatous infection. There is a moderate-sized hiatal hernia. Heart size is normal. There are mild coronary artery calcifications. No pericardial effusion. Aorta is normal in caliber. No calcifications associated with the right hemidiaphragm, unchanged. Limited views of the upper abdomen are unremarkable. There are no suspicious osseus lesions. Nondisplaced fracture of the upper 3rd of the sternum with mild adjacent stranding. IMPRESSION: 1. Nondisplaced fracture of the upper 3rd of the sternum. Dictated by: Dictated on workstation # [id number]
--- NOTE | 2020-11-01 11:40 | ED General ---
General Chief Complaint: Chest Wall Stated Complaint: HIT IN CHEST Nursing Triage Note: PT ARRIVED BY PRIVATE VEHILCE WITH CHIEF COMPLAINT OF FRIEND FALLING ON CHEST. PT WAS ALERT, ORIENTED X 4 AND AMBUALTROY ON ARRIVAL. PT'S VITALS WERE COMPLETED. PT STATED ON SATURDAY HE WAS LAYING ON THE GROUND AND HIS FRIEND TRIPPED AND FELL ON HIM - LANDING ON THE CHEST. PT STATED HE HEARD A SNAP. IT DID NOT HURT INITALLY, BUT THEN IT GOT WORSE AND HURTS TO TAKE A BREATH OR LAYING DOWN. PT HAS TENDERNESS TO TOUCH. PT STATED PAIN IS AN 8. PT WAS PREVIOUSL[facility] SEEN AT [facility], BUT THEY DID NOT HAVE XRAY FOR IMAGING. REPORT WAS GIVEN TO PROVIDER. Nursing Sepsis Screen: No Definite Risk Source of Information: Patient Exam Limitations: No Limitations History of Present Illness Date Seen by Provider: Nov 01, 2020 Time Seen by Provider: 09:45 Initial Comments This is 65-year-old gentleman presents to the emergency room with pain in the c entral chest after injury about 5 days ago. He was lying on the floor when a friend tripped and fell onto his chest. He has tenderness to palpation, pain with breathing, pain with lying flat, and pain with movement. He is not short of breath but breathing does cause pain. He denies any other injuries. Allergies and Home Medications Allergies Coded Allergies: meperidine (Verified Allergy, Mild, RASH, Pt has received Fentanyl w/o issue, 12/15/18) Home Medications Ascorbic Acid 500 Mg Tablet, 500 MG PO DAILY, (Reported) Calcium Carbonate/Vitamin D3 1 Each Tablet, 1 TAB PO BID, (Reported) Cholecalciferol (Vitamin D3) 2,000 Unit Capsule, 2,000 UNIT PO DAILY, (Reported) Colestipol HCl 1 Gm Tablet, 2 GM PO BID, (Reported) TAKES 2 (1GM) TABLET Doxycycline Hyclate 100 Mg Tablet, 100 MG PO BID Prescribed by: MORGAN MARIE on 06/28/19 1425 Famotidine 20 Mg Tablet, 20 MG PO BID Prescribed by: KRISTIAN RICHARDS on 12/27/18 1722 Ferrous Sulfate 325 Mg Tablet, 325 MG PO BID, (Reported) Gabapentin 300 Mg Capsule, 300 MG PO TID, (Reported) Glimepiride 4 Mg Tablet, 4 MG PO BID, (Reported) Hydrocodone Bit/Acetaminophen 1 Each Tablet, 1 TAB PO Q4-6HR PRN for PAIN- MODERATE, (Reported) Insulin Detemir 100 Unit/1 Ml Insuln.pen, 20 UNITS SC HS, (Reported) Krill/Om-3/Dha/Epa/Phospho/Ast 1 Each Capsule, 1 CAP PO DAILY, (Reported) Lactobacillus Combo No.11 1 Each Cap.sprink, 1 EACH PO DAILY, (Reported) Lisinopril 20 Mg Tablet, 20 MG PO DAILY, (Reported) Lutein 20 Mg Tablet, 40 MG PO BID, (Reported) Magnesium Oxide 400 Mg Tablet, 400 MG PO DAILY, (Reported) Metformin HCl 500 Mg Tablet, 500 MG PO BID, (Reported) Oxycodone HCl/Acetaminophen 1 Each Tablet, 1-2 TAB PO Q4H PRN for PAIN-MODERATE (5-7) Prescribed by: TAD MCKEON on 11/01/20 1142 Prednisone 20 Mg Tab, 40 MG PO DAILY Prescribed by: KRISTIAN RICHARDS on 12/27/18 1722 Flako AC/Safflower Oil 52 Ml Oil, TP BID, (Reported) APPLY TO SCARS [Garamycin Opth] , 3 DROPS EACH EAR BID Prescribed by: NOHEMY MILLAN on 12/19/18 1212 Patient Home Medication List Home Medication List Reviewed: Yes Review of Systems Review of Systems Constitutional: no symptoms reported EENTM: no symptoms reported Respiratory: see HPI Cardiovascular: no symptoms reported Gastrointestinal: no symptoms reported Genitourinary: no symptoms reported Musculoskeletal: see HPI Skin: no symptoms reported Psychiatric/Neurological: No Symptoms Reported Hematologic/Lymphatic: No Symptoms Reported Past Olnqlrg-Smrpwy-Zibopv Hx Past Med/Social Hx: Reviewed Nursing Past Med/Soc Hx Patient Social History Alcohol Use: Denies Use Type Used: Cigarettes 2nd Hand Smoke Exposure: Yes Recent Infectious Disease Expo: No Recent Hopitalizations: No Immunizations Up To Date Tetanus Booster (TDap): More than 5yrs Date of Pneumonia Vaccine: Sep 08, 2014 Date of Influenza Vaccine: Mar 03, 2018 Seasonal Allergies Seasonal Allergies: No Past Medical History Surgeries: Yes (BILAT TKR, BMT, HERNIA X2;CATARACTS;THUMB SURGERY;L NEPHRECTOMY;LUNG BX) Abdominal, Ear Surgery, Eye Surgery, Gallbladder, Joint Replacement, Nephrectomy, Orthopedic Respiratory: Yes (LUNG BIOPSY/PNEUMOTHORAX; LUNG CANCER) Pneumonia, Chronic Bronchitis Currently Using CPAP: No Currently Using BIPAP: No Cardiac: Yes Hypertension, Rheumatic Fever Neurological: No Reproductive Disorders: No HIV/AIDS: No Genitourinary: Yes (RENAL CANCER--LEFT NEPHRECTOMY) Gastrointestinal: Yes Chronic Diarrhea, Polyps Musculoskeletal: Yes (FX L LEG,CLAVICLE,RIBS,FOOT; KNEE SX/SCREWS;OSTEOARTHRITIS KNEES/BILAT TKR) Degenerate Disk Disease, Arthritis, Chronic Back Pain, Fractures Endocrine: Yes (INSULIN + ORAL MEDICATIONS) Diabetes, Insulin dep HEENT: Yes (GLASSES, PARTIAL ) Cataract Loss of Vision: Denies Hearing Impairment: Hard of Hearing Cancer: Yes (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) Lung, Kidney Did You Recieve Any Treatments: Yes What Type of Treatment Did You: Chemotherapy, Surgical Intervention Psychosocial: No Integumentary: No Blood Disorders: No Adverse Reaction/Blood Tranf: No (N/A) Family Medical History Diabetes mellitus 19 FATHER 19 MOTHER G8 BROTHER FH: skin cancer 19 MOTHER Family history: Arthritis Family history: Coronary thrombosis Family history: Diabetes mellitus History of - respiratory disease No Family History of: Abdominal aortic aneurysm Karlos's disease Alcoholism Aphasia Cancer Cancer of colon Cataract Chest pain Congenital heart disease Congestive heart failure Cystic fibrosis Dementia Dysphagia Family history: Allergy Family history: Alzheimer's disease Family history: Asthma Family history: Breast disease Family history: Cardiovascular disease Family history: Gastrointestinal disease Family history: Glaucoma Family history: Hypertension Family history: Osteoporosis Family history: Thyroid disorder Headache Hearing loss Heart disease Hereditary disease History of - anemia History of - disorder History of drug abuse Human immunodeficiency virus (HIV) seropositivity Hypercholesterolemia Infertile Kidney disease Malignant neoplasm of lung Myocardial infarction Parkinson's disease Prostate cancer Psychotic disorder Seizure disorder Stroke Tuberculosis Visual impairment No Pertinent Family Hx SOCIAL HISTORY: -ETOH--DENIES USE -SMOKES 1 PPD -DRUGS--DENIES USE PSH: -HERNIA REPAIR X 2 -BILATERAL MYRINGOTOMY TUBES -CARPAL TUNNEL SURGERY -BILATERAL CATARACT SURGERY -SCREWS IN KNEE AND LATER REMOVED -BILATERAL KNEE REPLACEMENTS 2013 -LEFT NEPHRECTOMY FOR CANCER 2013 -LUNG BIOPSY WITH PNEUMOTHORAX Physical Exam Vital Signs Vital Signs - First Documented 11/01/20 09:47 Temp 36.2 Pulse 82 Resp 18 B/P (MAP) 158/91 (113) Pulse Ox 95 O2 Delivery Room Air Capillary Refill : Less Than 3 Seconds Height, Weight, BMI Height: 6'4.00" Weight: 203lbs. 5.0oz. 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 Skin: Normal Color, Warm/Dry Procedures/Interventions Date of ETT Placement: May 07, 2018 Time of ETT Placement: 2340 Progress/Results/Core Measures Suspected Sepsis Recent Fever Within 48 Hours: No Infection Criteria Present: Suspected New Infection New/Unexplained Altered Menta: No Sepsis Screen: No Definite Risk SIRS Temperature: Pulse: 82 Respiratory Rate: 18 Blood Pressure 158 /91 Mean: 113 Results/Orders My Orders Orders - TAD LINDSEY MD Oxycodone/Apap 5/325mg Tablet (Percocet (11/01/20 10:00) Ct Chest Wo (11/01/20 09:53) Medications Given in ED Vital Signs/I&O 11/01/20 11/01/20 09:47 12:27 Temp 36.2 Pulse 82 71 Resp 18 16 B/P (MAP) 158/91 (113) 122/67 Pulse Ox 95 93 O2 Delivery Room Air Room Air Capillary Refill : Less Than 3 Seconds Blood Pressure Mean: 113 Progress Note : Progress Note CT reveals a nondisplaced sternal fracture. Patient received oral Percocet for pain management here. I did contact Dr. GALLEGO, orthopedic surgeon on-call. There is no emergent intervention that needs to be performed for treatment of this injury. Activity should be as tolerated with avoidance of strenuous activity until pain improves. Orthopedic follow-up is not necessary as long as his recovery is uneventful. Patient was informed that the fracture may take weeks to heal and will likely be rather painful. We discussed limitations at work and a note was provided. Diagnostic Imaging Diagonstic Imaging: CT Plain Films/CT/US/NM/MRI: chest Comments CT scan viewed by me and report reviewed. See report below: NAME: JAROD LOJA REC#: [id number] PT STATUS: REG ER : 1955 PHYSICIAN: TAD LINDSEY MD ADMIT DATE: 11/01/20/ER Draft Date of Exam:11/01/20 CT CHEST WO EXAMINATION: CT chest without contrast. TECHNIQUE: Multiple contiguous axial images were obtained through the chest without the use of intravenous contrast. All CT scans use one or more of the following dose optimizing techniques: automated exposure control, MA and/or KvP adjustment based on patient size and exam type or iterative reconstruction. HISTORY: Chest injury, sternal pain COMPARISON: 02/18/2020 FINDINGS: There is no edema or pneumonia. No pleural effusion. No pneumothorax. No suspicious nodules. There is moderate emphysema with scattered areas of scarring or atelectasis in the lungs. There is right middle lobe mucus plugging. Mucus is present in the trachea and mainstem bronchi. There is no axillary or supraclavicular lymphadenopathy. There are unchanged mildly enlarged mediastinal lymph nodes with calcifications consistent with prior granulomatous infection. There is a moderate-sized hiatal hernia. Heart size is normal. There are mild coronary artery calcifications. No pericardial effusion. Aorta is normal in caliber. No calcifications associated with the right hemidiaphragm, unchanged. Limited views of the upper abdomen are unremarkable. There are no suspicious osseus lesions. Nondisplaced fracture of the upper 3rd of the sternum with mild adjacent stranding. IMPRESSION: 1. Nondisplaced fracture of the upper 3rd of the sternum. Dictated on workstation # [id number] Dict: 11/01/20 1043 Trans: 11/01/20 1049 [facility] [id number] Interpreted by: SHAWN LOUISE MD Departure Impression Primary Impression: Sternal fracture Qualified Codes: S22.22XA - Fracture of body of sternum, initial encounter for closed fracture Disposition: HOME, SELF-CARE Condition: Improved Departure-Patient Inst. Decision time for Depature: 11:35 Referrals: SHAWN CALLEJAS MD (PCP/Family) Primary Care Physician Patient Instructions: Sternal Fracture Add. Discharge Instructions: Exercise deep breathing at least 10 times per hour while awake. Coughing a couple times per hour is encouraged also to clear phlegm and secretions. Work on reducing her smoking and quit if at all possible. This will help speed your healing and reduce pain. Use your Percocet (oxycodone) as prescribed. Please follow-up with your primary care provider soon as possible for further pain management as you may need increased pain management for several weeks while this injury heals. Avoid heavy lifting and other strenuous activities that increase pain. Expect to have some significant pain for several weeks while your injury heals. Call with questions or concerns. Return the ER if you have worsening symptoms. All discharge instructions reviewed with patient and/or family. Voiced understanding. Scripts Oxycodone HCl/Acetaminophen (Percocet 5-325 mg Tablet) 1 Each Tablet 1-2 TAB PO Q4H PRN for PAIN-MODERATE (5-7) MDD 6 TABS, #20 TAB Prov: TAD LINDSEY MD 11/01/20 Work/School Note: Work Release Form Date Seen in the Emergency Department: Nov 01, 2020 Return to Work: Nov 02, 2020 Other Restrictions Listed Below: No lifting, pulling, or pushing over 10 pounds for at least 1 week. Restrictions: Stop activities that increase pain. Copy Copies To 1: SHAWN CALLEJAS MD Copies To 2: JAROD GALLEGO MD, JOSHUA T MD Nov 01, 2020 11:40
[2020-11-01] MEDS ORDERED: OXYC1TAB87 PO (11:41)
[2020-11-01 12:27] VITALS: BP 122/67
== END 2020-11-01 12:27 | disposition home or self-care (01) ==
LOC: EDUNIT# 09:35 → ER 09:39
DX: S22.22XA Fracture of body of sternum, initial encounter for closed fracture (principal); I10 Essential (primary) hypertension; E11.9 Type 2 diabetes mellitus without complications; G89.29 Other chronic pain; M54.9 Dorsalgia, unspecified; Z77.22 Contact with and (suspected) exposure to environmental tobacco smoke (acute) (chronic); Z79.4 Long term (current) use of insulin; Z79.891 Long term (current) use of opiate analgesic; Z79.899 Other long term (current) drug therapy; W50.0XXA Accidental hit or strike by another person, initial encounter
CPT/HCPCS: 71250

== ENCOUNTER 2020-12-21 15:00 | Outpatient (RCR) | payer BC, OTHER ==
[2020-09-28 15:40] LABS: BASOPHILS % (AUTO) 0 % (0-10); EOSINOPHILS # (AUTO) 0.6 10^3/uL (0.0-0.3); EOSINOPHILS % (AUTO) 6 % (0-10); HEMATOCRIT 39 % (40-54); HEMOGLOBIN 12.4 g/dL (13.3-17.7); LYMPHOCYTES # (AUTO) 1.8 10^3/uL (1.0-4.0); LYMPHOCYTES % (AUTO) 21 % (12-44); MEAN CORPUSCULAR HEMOGLOBIN 30 pg (25-34); MEAN CORPUSCULAR HGB CONC 32 g/dL (32-36); MEAN CORPUSCULAR VOLUME 95 fL (80-99); MEAN PLATELET VOLUME 9.6 fL (9.0-12.2); MONOCYTES # (AUTO) 0.8 10^3/uL (0.0-1.0); MONOCYTES % (AUTO) 10 % (0-12); NEUTROPHILS # (AUTO) 5.3 10^3/uL (1.8-7.8); NEUTROPHILS % (AUTO) 63 % (42-75); PLATELET COUNT 209 10^3/uL (130-400); WHITE BLOOD COUNT 8.5 10^3/uL (4.3-11.0)
[2020-09-28 16:02] LABS: ALBUMIN 4.1 GM/DL (3.2-4.5); BILIRUBIN,TOTAL 0.5 MG/DL (0.1-1.0); CALCIUM 9.1 MG/DL (8.5-10.1); CREATININE SERUM 1.37 MG/DL (0.60-1.30); POTASSIUM 4.7 MMOL/L (3.6-5.0); TOTAL PROTEIN 6.6 GM/DL (6.4-8.2)
[2020-10-26 15:48] LABS: BASOPHILS % (AUTO) 0 % (0-10); EOSINOPHILS # (AUTO) 0.7 10^3/uL (0.0-0.3); EOSINOPHILS % (AUTO) 9 % (0-10); HEMATOCRIT 39 % (40-54); HEMOGLOBIN 12.3 g/dL (13.3-17.7); LYMPHOCYTES # (AUTO) 1.7 10^3/uL (1.0-4.0); LYMPHOCYTES % (AUTO) 21 % (12-44); MEAN CORPUSCULAR HEMOGLOBIN 30 pg (25-34); MEAN CORPUSCULAR HGB CONC 32 g/dL (32-36); MEAN CORPUSCULAR VOLUME 95 fL (80-99); MEAN PLATELET VOLUME 9.8 fL (9.0-12.2); MONOCYTES # (AUTO) 0.8 10^3/uL (0.0-1.0); MONOCYTES % (AUTO) 11 % (0-12); NEUTROPHILS # (AUTO) 4.7 10^3/uL (1.8-7.8); NEUTROPHILS % (AUTO) 59 % (42-75); PLATELET COUNT 220 10^3/uL (130-400)
[2020-10-26 16:07] LABS: ALBUMIN 3.8 GM/DL (3.2-4.5); BILIRUBIN,TOTAL 0.4 MG/DL (0.1-1.0); CALCIUM 8.8 MG/DL (8.5-10.1); CREATININE SERUM 1.49 MG/DL (0.60-1.30); POTASSIUM 4.7 MMOL/L (3.6-5.0); TOTAL PROTEIN 6.3 GM/DL (6.4-8.2)
[~2020-12-21 15:00] MED LIST changes: +NIVOLUMAB 480 MG in NS (IVPB) CANCER CENTER 100 ML IV SCH; +NS (IVPB) CANCER CENTER 250 ML IV SCH; +NS IV 1000 ML (CANCER CTR) IV SCH; -OXYC-464 PO; +OXYC1TAB15 PO; +OXYC1TAB87 PO
[2020-12-21 15:48] LABS: BASOPHILS % (AUTO) 0 % (0-10); EOSINOPHILS # (AUTO) 0.4 10^3/uL (0.0-0.3); EOSINOPHILS % (AUTO) 5 % (0-10); HEMATOCRIT 40 % (40-54); HEMOGLOBIN 12.5 g/dL (13.3-17.7); LYMPHOCYTES # (AUTO) 1.6 10^3/uL (1.0-4.0); LYMPHOCYTES % (AUTO) 19 % (12-44); MEAN CORPUSCULAR HEMOGLOBIN 30 pg (25-34); MEAN CORPUSCULAR HGB CONC 32 g/dL (32-36); MEAN CORPUSCULAR VOLUME 95 fL (80-99); MEAN PLATELET VOLUME 9.8 fL (9.0-12.2); MONOCYTES # (AUTO) 0.8 10^3/uL (0.0-1.0); MONOCYTES % (AUTO) 9 % (0-12); NEUTROPHILS # (AUTO) 5.5 10^3/uL (1.8-7.8); NEUTROPHILS % (AUTO) 66 % (42-75); PLATELET COUNT 213 10^3/uL (130-400); WHITE BLOOD COUNT 8.4 10^3/uL (4.3-11.0)
[2020-12-21 16:08] LABS: ALBUMIN 3.8 GM/DL (3.2-4.5); BILIRUBIN,TOTAL 0.4 MG/DL (0.1-1.0); CALCIUM 8.9 MG/DL (8.5-10.1); CREATININE SERUM 1.31 MG/DL (0.60-1.30); POTASSIUM 4.9 MMOL/L (3.6-5.0); TOTAL PROTEIN 6.2 GM/DL (6.4-8.2)
== END 2020-12-27 | disposition home or self-care (01) ==
LOC: ONC 15:00
PROVIDERS: ATTEND Internal Medicine Hematology & Oncology
DX: Z51.11 Encounter for antineoplastic chemotherapy (principal); C64.1 Malignant neoplasm of right kidney, except renal pelvis; C78.01 Secondary malignant neoplasm of right lung; E11.22 Type 2 diabetes mellitus with diabetic chronic kidney disease; I12.9 Hypertensive chronic kidney disease with stage 1 through stage 4 chronic kidney disease, or unspecified chronic kidney disease; D63.1 Anemia in chronic kidney disease; N18.30 Chronic kidney disease, stage 3 unspecified; H10.9 Unspecified conjunctivitis; Z79.4 Long term (current) use of insulin; Z90.5 Acquired absence of kidney
CPT/HCPCS: 80053; 85025; 96413; G0463; 36415; 99213

== ENCOUNTER → 2021-02-07 | Outpatient (CLI) | payer BC ==
[~2021-02-07] MED LIST changes: -NIVOLUMAB 480 MG in NS (IVPB) CANCER CENTER 100 ML IV SCH; -NS (IVPB) CANCER CENTER 250 ML IV SCH; -NS IV 1000 ML (CANCER CTR) IV SCH
== END ==
LOC: RT 13:00
PROVIDERS: ATTEND Nurse Practitioner Family
DX: J44.9 Chronic obstructive pulmonary disease, unspecified (principal)
CPT/HCPCS: 94060; 94726; 94729

== ENCOUNTER → 2021-03-20 | Outpatient (CLI) | payer BC ==
--- NOTE | 2021-03-20 11:12 | Diagnostic Imaging Report ---
PROCEDURE: US Abdomen, limited. TECHNIQUE: Multiple realtime grayscale images were obtained over the abdomen in various projections. INDICATION: Umbilical hernia repair in 2018 with umbilical drainage and lump. FINDINGS: There is what appears to be a tract extending from the skin through the subcutaneous fat with considerable acoustical shadowing. This may represent calcification or air. Very little additional detail is obtained from the ultrasound. IMPRESSION: There does appear to be a tract with acoustical shadowing in the subcutaneous tissues. Would consider CT scan of the abdomen to better evaluate. Dictated by: Dictated on workstation # [id number]
== END ==
LOC: RAD 09:45
PROVIDERS: ATTEND Internal Medicine
DX: R19.05 Periumbilic swelling, mass or lump (principal); Z98.890 Other specified postprocedural states
CPT/HCPCS: 76705

== ENCOUNTER → 2021-03-28 | Outpatient (CLI) | payer BC ==
[~2021-03-28] MED LIST changes: +HOLD METFORMIN - RECEIVED CONTRAST 20 ML VIAL IV SCH; +IOHEXOL 350 MG/ML 100 ML (OMNIPAQUE 350) VIAL IV ONE; +NS 100 ML (IVPB) BAG IV ONE
--- NOTE | 2021-03-28 18:05 | Diagnostic Imaging Report ---
PROCEDURE: CT abdomen and pelvis with contrast. TECHNIQUE: Multiple contiguous axial images were obtained through the abdomen and pelvis after administration of intravenous contrast. Auto Exposure Controls were utilized during the CT exam to meet ALARA standards for radiation dose reduction. All CT scans use one or more of the following dose optimizing techniques: automated exposure control, MA and/or KvP adjustment based on patient size and exam type or iterative reconstruction. INDICATION: Abdominal mass. CORRELATION is made with ultrasound from March 202020. Comparison also made to prior CT study from November 262019. FINDINGS: The lung bases demonstrate no findings of pneumonia or edema. There is flattening of the diaphragms. There are chronic pleural calcifications overlying at the right hemidiaphragm. There is a moderate paraesophageal hernia. There is no pericardial collection. There are no CT findings of a definable intrahepatic mass. The patient is status post prior cholecystectomy. There is no abnormal biliary dilatation. The pancreas demonstrates no focal abnormality or ductal dilatation. The spleen is normal in size. There are no findings of a right adrenal mass. The right kidney enhances normally and is nonobstructed. The left kidney is surgically absent. The left adrenal gland is not clearly delineated. There are no findings to suggest abnormal dilation of the small or large bowel or findings of bowel obstruction. There is advanced sigmoid diverticulosis without evidence of diverticulitis or definable colonic mass. There is moderate to large degree of stool demonstrated throughout the colon. The appendix is normal. There are no findings of free air, free fluid or abscess. No pathologically enlarged abdominal or pelvic lymph nodes are demonstrated. There are advanced atherosclerotic calcifications within the aorta. There are background degenerative features throughout the spine with a levoscoliosis. There is no acute or suspicious osseous abnormality demonstrated. No recurrent abdominal wall hernias are evident. There is some scarring demonstrated adjacent to the umbilicus. IMPRESSION: 1. No CT evidence of a definable intra-abdominal or pelvic mass. 2. No findings of bowel obstruction. There is advanced diverticulosis. 3. No free air, free fluid or abscess. 4. No adenopathy. 5. Prior surgical changes of a left nephrectomy. Left adrenal gland not evident. 6. Right kidney nonobstructed. 7. Paraesophageal hernia. 8. Findings of COPD with chronic right basilar pleural calcifications. 9. Atherosclerosis. 10. No acute or suspicious osseous abnormalities. Dictated by: Dictated on workstation # [id number]
== END ==
LOC: RAD 16:15
PROVIDERS: ATTEND Internal Medicine
DX: Z90.5 Acquired absence of kidney (principal); K44.9 Diaphragmatic hernia without obstruction or gangrene; J44.9 Chronic obstructive pulmonary disease, unspecified; J94.8 Other specified pleural conditions; I70.0 Atherosclerosis of aorta
CPT/HCPCS: 74177

== ENCOUNTER → 2021-05-16 | Outpatient (RCR) | payer BC, OTHER ==
[2021-02-15 15:58] LABS: BASOPHILS % (AUTO) 0 % (0-10); EOSINOPHILS # (AUTO) 0.8 10^3/uL (0.0-0.3); EOSINOPHILS % (AUTO) 11 % (0-10); HEMATOCRIT 37 % (40-54); HEMOGLOBIN 11.8 g/dL (13.3-17.7); LYMPHOCYTES # (AUTO) 1.8 10^3/uL (1.0-4.0); LYMPHOCYTES % (AUTO) 23 % (12-44); MEAN CORPUSCULAR HEMOGLOBIN 30 pg (25-34); MEAN CORPUSCULAR HGB CONC 32 g/dL (32-36); MEAN CORPUSCULAR VOLUME 95 fL (80-99); MEAN PLATELET VOLUME 9.7 fL (9.0-12.2); MONOCYTES # (AUTO) 0.7 10^3/uL (0.0-1.0); MONOCYTES % (AUTO) 9 % (0-12); NEUTROPHILS # (AUTO) 4.3 10^3/uL (1.8-7.8); NEUTROPHILS % (AUTO) 56 % (42-75); PLATELET COUNT 213 10^3/uL (130-400); WHITE BLOOD COUNT 7.6 10^3/uL (4.3-11.0)
[2021-02-15 16:24] LABS: BILIRUBIN,TOTAL 0.4 MG/DL (0.1-1.0); CALCIUM 9.6 MG/DL (8.5-10.1); CREATININE SERUM 1.46 MG/DL (0.60-1.30); POTASSIUM 5.3 MMOL/L (3.6-5.0); TOTAL PROTEIN 6.6 GM/DL (6.4-8.2)
[2021-04-12 15:43] LABS: BASOPHILS % (AUTO) 0 % (0-10); EOSINOPHILS # (AUTO) 0.8 10^3/uL (0.0-0.3); EOSINOPHILS % (AUTO) 10 % (0-10); HEMATOCRIT 36 % (40-54); HEMOGLOBIN 11.6 g/dL (13.3-17.7); LYMPHOCYTES # (AUTO) 1.7 10^3/uL (1.0-4.0); LYMPHOCYTES % (AUTO) 21 % (12-44); MEAN CORPUSCULAR HEMOGLOBIN 31 pg (25-34); MEAN CORPUSCULAR HGB CONC 33 g/dL (32-36); MEAN CORPUSCULAR VOLUME 95 fL (80-99); MEAN PLATELET VOLUME 9.7 fL (9.0-12.2); MONOCYTES # (AUTO) 0.8 10^3/uL (0.0-1.0); MONOCYTES % (AUTO) 10 % (0-12); NEUTROPHILS # (AUTO) 4.6 10^3/uL (1.8-7.8); NEUTROPHILS % (AUTO) 58 % (42-75); PLATELET COUNT 213 10^3/uL (130-400)
[2021-04-12 15:54] LABS: POTASSIUM 4.8 MMOL/L (3.6-5.0)
[2021-04-12 15:55] LABS: CALCIUM 8.8 MG/DL (8.5-10.1)
[2021-04-12 15:56] LABS: TOTAL PROTEIN 6.4 GM/DL (6.4-8.2)
[2021-04-12 15:58] LABS: BILIRUBIN,TOTAL 0.6 MG/DL (0.1-1.0)
[2021-04-12 16:00] LABS: CREATININE SERUM 1.12 MG/DL (0.60-1.30)
[~2021-05-16] MED LIST changes: -BETH25TA PO; +BETH25TA2 PO; -HOLD METFORMIN - RECEIVED CONTRAST 20 ML VIAL IV SCH; -IOHEXOL 350 MG/ML 100 ML (OMNIPAQUE 350) VIAL IV ONE; +NIVOLUMAB 480 MG in NS (IVPB) CANCER CENTER 100 ML IV SCH; +NS (IVPB) CANCER CENTER 250 ML IV SCH; -NS 100 ML (IVPB) BAG IV ONE; +NS IV 1000 ML (CANCER CTR) IV SCH; -POTA99TA21 PO; +POTA99TA26 PO
== END | disposition home or self-care (01) ==
LOC: ONC 02-15 15:20
PROVIDERS: ATTEND Internal Medicine Hematology & Oncology
DX: Z51.11 Encounter for antineoplastic chemotherapy (principal); Z45.2 Encounter for adjustment and management of vascular access device; C64.1 Malignant neoplasm of right kidney, except renal pelvis; C78.01 Secondary malignant neoplasm of right lung; E11.22 Type 2 diabetes mellitus with diabetic chronic kidney disease; I12.9 Hypertensive chronic kidney disease with stage 1 through stage 4 chronic kidney disease, or unspecified chronic kidney disease; N18.30 Chronic kidney disease, stage 3 unspecified; D63.1 Anemia in chronic kidney disease; H10.9 Unspecified conjunctivitis; Z79.4 Long term (current) use of insulin; Z90.5 Acquired absence of kidney
CPT/HCPCS: 80053; 85025; 96413; G0463; 36415; 84443

== ENCOUNTER 2021-06-14 15:19 | Outpatient (RCR) | payer BC, OTHER ==
[2021-06-14 15:58] LABS: BASOPHILS % (AUTO) 0 % (0-10); EOSINOPHILS # (AUTO) 0.7 10^3/uL (0.0-0.3); EOSINOPHILS % (AUTO) 9 % (0-10); HEMATOCRIT 40 % (40-54); HEMOGLOBIN 12.7 g/dL (13.3-17.7); LYMPHOCYTES # (AUTO) 1.8 10^3/uL (1.0-4.0); LYMPHOCYTES % (AUTO) 23 % (12-44); MEAN CORPUSCULAR HEMOGLOBIN 30 pg (25-34); MEAN CORPUSCULAR HGB CONC 32 g/dL (32-36); MEAN CORPUSCULAR VOLUME 95 fL (80-99); MEAN PLATELET VOLUME 9.5 fL (9.0-12.2); MONOCYTES # (AUTO) 0.8 10^3/uL (0.0-1.0); MONOCYTES % (AUTO) 10 % (0-12); NEUTROPHILS # (AUTO) 4.7 10^3/uL (1.8-7.8); NEUTROPHILS % (AUTO) 58 % (42-75); PLATELET COUNT 224 10^3/uL (130-400); WHITE BLOOD COUNT 8.2 10^3/uL (4.3-11.0)
[2021-06-14 16:24] LABS: BILIRUBIN,TOTAL 0.6 MG/DL (0.1-1.0); CALCIUM 9.2 MG/DL (8.5-10.1); CREATININE SERUM 1.31 MG/DL (0.60-1.30); TOTAL PROTEIN 6.7 GM/DL (6.4-8.2)
== END 2021-07-03 | disposition home or self-care (01) ==
LOC: ONC 15:19
PROVIDERS: ATTEND Internal Medicine Hematology & Oncology
DX: Z51.11 Encounter for antineoplastic chemotherapy (principal); Z45.2 Encounter for adjustment and management of vascular access device; C64.1 Malignant neoplasm of right kidney, except renal pelvis; C78.01 Secondary malignant neoplasm of right lung; E11.22 Type 2 diabetes mellitus with diabetic chronic kidney disease; I12.9 Hypertensive chronic kidney disease with stage 1 through stage 4 chronic kidney disease, or unspecified chronic kidney disease; N18.30 Chronic kidney disease, stage 3 unspecified; D63.1 Anemia in chronic kidney disease; H10.9 Unspecified conjunctivitis; Z79.4 Long term (current) use of insulin; Z90.5 Acquired absence of kidney
CPT/HCPCS: 80053; 84443; 85025; 96413; G0463; 99213

== ENCOUNTER 2021-07-07 17:02 | Inpatient (IN) | payer BC ==
[~2021-07-07] VITALS: Ht 185.5 cm; Wt 85.0 kg
[~2021-07-07 17:02] MED LIST changes: -NIVOLUMAB 480 MG in NS (IVPB) CANCER CENTER 100 ML IV SCH; -NS (IVPB) CANCER CENTER 250 ML IV SCH; -NS IV 1000 ML (CANCER CTR) IV SCH
[2021-07-07] MEDS ORDERED: fentaNYL INJ 100 MCG/2 ML AMP IVP ONE (17:15)
--- NOTE | 2021-07-07 17:20 | ED General ---
General Chief Complaint: General Problems/Pain Stated Complaint: ACHES/ARM PAIN Source of Information: Patient Exam Limitations: No Limitations History of Present Illness Date Seen by Provider: Jul 07, 2021 Time Seen by Provider: 17:17 Initial Comments To ER with reports of pain to both sides of the base of his neck as well as pain in the left deltoid. He reports that this began on 07/01/2021, he received his second Covid injection on 06/30/2021 on left arm. He smokes 1 pack of cigarettes per day. He has a left renal cell carcinoma s/p left nephrectomy reported to be metastatic to the left lung and is undergoing chemotherapy here at the hospital. Primary care is Dr. Callejas. EMS reports that he had an initial oxygen saturation of 66% on room air upon their arrival. He was given DuoNeb and supplemental oxygen in route. No fevers. He has had a newly productive cough over the past few days. Timing/Duration: 6-7 Days Severity: Moderate Associated Systoms: Cough Allergies and Home Medications Allergies Coded Allergies: meperidine (Verified Allergy, Mild, RASH, Pt has received Fentanyl w/o issue, 12/15/18) Patient Home Medication List Home Medication List Reviewed: Yes Ascorbic Acid (Vitamin C) 500 Mg Tablet, 500 MG PO DAILY, (Reported) Entered as Reported by: JADA KIMBALL on 09/21/15 1057 Calcium Carbonate/Vitamin D3 (Calcium 500 + Vit D 200 Caplet) 1 Each Tablet, 1 TAB PO BID, (Reported) Entered as Reported by: JADA KIMBALL on 04/19/17 1519 Cholecalciferol (Vitamin D3) (Vitamin D3) 2,000 Unit Capsule, 2,000 UNIT PO DAILY, (Reported) Entered as Reported by: JADA KIMBALL on 09/21/15 1057 Colestipol HCl (Colestipol HCl) 1 Gm Tablet, 2 GM PO BID, (Reported) Entered as Reported by: JADA KIMBALL on 04/19/17 1519 Doxycycline Hyclate (Doxycycline Hyclate) 100 Mg Tablet, 100 MG PO BID Prescribed by: MORGAN MARIE on 06/28/19 1425 Famotidine (Pepcid) 20 Mg Tablet, 20 MG PO BID Prescribed by: KRISTIAN RICHARDS on 12/27/18 1722 Ferrous Sulfate (Ferosul) 325 Mg Tablet, 325 MG PO BID, (Reported) Entered as Reported by: JADA KIMBALL on 04/19/171518 Gabapentin (Gabapentin) 300 Mg Capsule, 300 MG PO TID, (Reported) Entered as Reported by: JADA KIMBALL on 04/19/171511 Glimepiride (Glimepiride) 4 Mg Tablet, 4 MG PO BID, (Reported) Entered as Reported by: JADA KIMBALL on 04/19/171511 Hydrocodone Bit/Acetaminophen (Lortab 5 Mg Tablet) 1 Each Tablet, 1 TAB PO Q4- 6HR PRN for PAIN-MODERATE, (Reported) Entered as Reported by: JOSE LARA on 12/15/18 1002 Insulin Detemir (Levemir Flextouch) 100 Unit/1 Ml Insuln.pen, 20 UNITS SC HS, (Reported) Entered as Reported by: JADA KIMBALL on 05/08/18 0949 Krill/Om-3/Dha/Epa/Phospho/Ast (Krill Oil 1,000 mg Softgel) 1 Each Capsule, 1 CAP PO DAILY, (Reported) Entered as Reported by: JADA KIMBALL on 04/19/171518 Lactobacillus Combo No.11 (Probiotic) 1 Each Cap.sprink, 1 EACH PO DAILY, (Reported) Entered as Reported by: JOSE LARA on 12/15/18 1002 Lisinopril (Lisinopril) 20 Mg Tablet, 20 MG PO DAILY, (Reported) Entered as Reported by: JADA KIMBALL on 04/19/17 151 Lutein (Lutein) 20 Mg Tablet, 40 MG PO BID, (Reported) Entered as Reported by: JADA KIMBALL on 09/21/15 1057 Magnesium Oxide (Magnesium) 400 Mg Tablet, 400 MG PO DAILY, (Reported) Entered as Reported by: JADA KIMBALL on 04/19/17 151 Metformin HCl (Metformin HCl) 500 Mg Tablet, 500 MG PO BID, (Reported) Entered as Reported by: JADA KIMBALL on 04/19/171511 Oxycodone HCl/Acetaminophen (Percocet 5-325 mg Tablet) 1 Each Tablet, 1-2 TAB PO Q4H PRN for PAIN-MODERATE (5-7) Prescribed by: TAD MCKEON on 11/01/20 1142 Prednisone (Prednisone) 20 Mg Tab, 40 MG PO DAILY Prescribed by: KRISTIAN RICHARDS on 12/27/18 1722 Flako AC/Safflower Oil (Vitamin E Beauty Oil) 52 Ml Oil, TP BID, (Reported) Entered as Reported by: JADA KIMBALL on 09/21/15 1047 [Garamycin Opth] , 3 DROPS EACH EAR BID Prescribed by: NOHEMY MILLAN on 12/19/18 1212 Review of Systems Review of Systems Constitutional: see HPI; No chills, No fever EENTM: see HPI Respiratory: see HPI, cough Cardiovascular: no symptoms reported Genitourinary: no symptoms reported Musculoskeletal: see HPI Skin: no symptoms reported Psychiatric/Neurological: No Symptoms Reported Hematologic/Lymphatic: No Symptoms Reported Immunological/Allergic: no symptoms reported Past Lzptuyf-Skhsut-Jnngyq Hx Immunizations Up To Date Tetanus Booster (TDap): More than 5yrs Seasonal Allergies Seasonal Allergies: No Past Medical History Surgeries: Yes (BILAT TKR, BMT, HERNIA X2;CATARACTS;THUMB SURGERY;L NEPHRECTOMY;LUNG BX) Abdominal, Ear Surgery, Eye Surgery, Gallbladder, Joint Replacement, Nephrectomy, Orthopedic Respiratory: Yes (LUNG BIOPSY/PNEUMOTHORAX; LUNG CANCER) Pneumonia, Chronic Bronchitis Currently Using CPAP: No Currently Using BIPAP: No Cardiac: Yes Hypertension, Rheumatic Fever Neurological: No Reproductive Disorders: No HIV/AIDS: No Genitourinary: Yes (RENAL CANCER--LEFT NEPHRECTOMY) Gastrointestinal: Yes Chronic Diarrhea, Polyps Musculoskeletal: Yes (FX L LEG,CLAVICLE,RIBS,FOOT; KNEE SX/SCREWS;OSTEOARTHRITIS KNEES/BILAT TKR) Degenerate Disk Disease, Arthritis, Chronic Back Pain, Fractures Endocrine: Yes (INSULIN + ORAL MEDICATIONS) Diabetes, Insulin dep HEENT: Yes (GLASSES, PARTIAL ) Cataract Loss of Vision: Denies Hearing Impairment: Hard of Hearing Cancer: Yes (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) Lung, Kidney Did You Recieve Any Treatments: Yes What Type of Treatment Did You: Chemotherapy, Surgical Intervention Psychosocial: No Integumentary: No Blood Disorders: No Adverse Reaction/Blood Tranf: No (N/A) Family Medical History Diabetes mellitus 19 FATHER 19 MOTHER G8 BROTHER FH: skin cancer 19 MOTHER Family history: Arthritis Family history: Coronary thrombosis Family history: Diabetes mellitus History of - respiratory disease No Family History of: Abdominal aortic aneurysm Hall's disease Alcoholism Aphasia Cancer Cancer of colon Cataract Chest pain Congenital heart disease Congestive heart failure Cystic fibrosis Dementia Dysphagia Family history: Allergy Family history: Alzheimer's disease Family history: Asthma Family history: Breast disease Family history: Cardiovascular disease Family history: Gastrointestinal disease Family history: Glaucoma Family history: Hypertension Family history: Osteoporosis Family history: Thyroid disorder Headache Hearing loss Heart disease Hereditary disease History of - anemia History of - disorder History of drug abuse Human immunodeficiency virus (HIV) seropositivity Hypercholesterolemia Infertile Kidney disease Malignant neoplasm of lung Myocardial infarction Parkinson's disease Prostate cancer Psychotic disorder Seizure disorder Stroke Tuberculosis Visual impairment No Pertinent Family Hx SOCIAL HISTORY: -ETOH--DENIES USE -SMOKES 1 PPD -DRUGS--DENIES USE PSH: -HERNIA REPAIR X 2 -BILATERAL MYRINGOTOMY TUBES -CARPAL TUNNEL SURGERY -BILATERAL CATARACT SURGERY -SCREWS IN KNEE AND LATER REMOVED -BILATERAL KNEE REPLACEMENTS 2013 -LEFT NEPHRECTOMY FOR CANCER 2013 -LUNG BIOPSY WITH PNEUMOTHORAX Physical Exam Vital Signs Vital Signs - First Documented 07/07/21 17:05 Temp 36.5 Pulse 91 Resp 18 B/P (MAP) 133/61 (85) Pulse Ox 97 O2 Delivery Nasal Cannula O2 Flow Rate 6.00 Capillary Refill : Height, Weight, BMI Height: 6'4.00" Weight: 203lbs. 5.0oz. 92.239864zh; 23.00 BMI Method:Stated General Appearance: No Apparent Distress, WD/WN, Chronically ill (Appears much older than stated age), Other (His oxygen saturation does drop down to 88% on room air here on arrival. He was put on 2 L with subsequent rise to 92%. falls asleep easiliy but arousable to verbal stimuli and answers sppropriately . ) Eyes: Bilateral Eye Normal Inspection, Bilateral Eye PERRL Neck: Full Range of Motion, Normal Inspection, Tender Lateral, Other (Neck is tender to palpation at the base bilaterally over the trapezius muscle. Worsened by turning his head either direction.) Respiratory: No Accessory Muscle Use, No Respiratory Distress, Decreased Breath Sounds Cardiovascular: Regular Rate, Rhythm, Normal Peripheral Pulses Gastrointestinal: Normal Bowel Sounds, Non Tender, Soft Extremity: Normal Capillary Refill, Normal Inspection Neurologic/Psychiatric: Alert, Oriented x3 Focused Exam Lactate Level 07/07/21 18:10: Lactic Acid Level 0.63 Lactic Acid Level Laboratory Tests Test 07/07/21 18:10 Lactic Acid Level 0.63 MMOL/L (0.50-2.00) Procedures/Interventions Date of ETT Placement: May 07, 2018 Time of ETT Placement: 0 Progress/Results/Core Measures Suspected Sepsis SIRS Temperature: Pulse: Respiratory Rate: Laboratory Tests 07/07/21 17:05: White Blood Count 16.1H Blood Pressure / Mean: 07/07/21 18:10: Lactic Acid Level 0.63 Laboratory Tests 07/07/21 17:05: Creatinine 2.73H, INR Comment 1.1, Platelet Count 253, Total Bilirubin 0.3 Results/Orders Lab Results Laboratory Tests Test 07/07/21 17:05 07/07/21 17:10 07/07/21 17:39 07/07/21 18:10 Range/Units White Blood Count 16.1 H 4.3-11.0 10^3/uL Red Blood Count 3.60 L 4.30-5.52 10^6/uL Hemoglobin 10.8 L 13.3-17.7 g/dL Hematocrit 35 L 40-54 % Mean Corpuscular Volume 96 80-99 fL Mean Corpuscular Hemoglobin 30 25-34 pg Mean Corpuscular Hemoglobin Concent 31 L 32-36 g/dL Red Cell Distribution Width 13.4 10.0-14.5 % Platelet Count 253 130-400 10^3/uL Mean Platelet Volume 9.7 9.0-12.2 fL Immature Granulocyte % (Auto) 1 % Neutrophils (%) (Auto) 80 H 42-75 % Lymphocytes (%) (Auto) 9 L 12-44 % Monocytes (%) (Auto) 8 0-12 % Eosinophils (%) (Auto) 1 0-10 % Basophils (%) (Auto) 0 0-10 % Neutrophils # (Auto) 12.9 H 1.8-7.8 10^3/uL Lymphocytes # (Auto) 1.5 1.0-4.0 10^3/uL Monocytes # (Auto) 1.4 H 0.0-1.0 10^3/uL Eosinophils # (Auto) 0.2 0.0-0.3 10^3/uL Basophils # (Auto) 0.0 0.0-0.1 10^3/uL Immature Granulocyte # (Auto) 0.1 0.0-0.1 10^3/uL Neutrophils % (Manual) 80 % Lymphocytes % (Manual) 12 % Monocytes % (Manual) 4 % Eosinophils % (Manual) 2 % Band Neutrophils 2 % Blood Morphology Comment NORMAL Prothrombin Time 14.4 12.2-14.7 SEC INR Comment 1.1 0.8-1.4 Sodium Level 138 135-145 MMOL/L Potassium Level 5.1 H 3.6-5.0 MMOL/L Chloride Level 101 98-107 MMOL/L Carbon Dioxide Level 25 21-32 MMOL/L Anion Gap 12 5-14 MMOL/L Blood Urea Nitrogen 55 H 7-18 MG/DL Creatinine 2.73 H 0.60-1.30 MG/DL Estimat Glomerular Filtration Rate 25 BUN/Creatinine Ratio 20 Glucose Level 294 H 70-105 MG/DL Calcium Level 9.1 8.5-10.1 MG/DL Corrected Calcium 9.4 8.5-10.1 MG/DL Magnesium Level 2.1 1.6-2.4 MG/DL Total Bilirubin 0.3 0.1-1.0 MG/DL Aspartate Amino Transf (AST/SGOT) 12 5-34 U/L Alanine Aminotransferase (ALT/SGPT) 22 0-55 U/L Alkaline Phosphatase 73 40-136 U/L B-Type Natriuretic Peptide 304.5 H <100.0 PG/ML Total Protein 6.7 6.4-8.2 GM/DL Albumin 3.6 3.2-4.5 GM/DL Procalcitonin 0.18 H <0.10 NG/ML Blood Gas Puncture Site LEFT RADIAL Blood Gas Patient Temperature 37.0 Arterial Blood pH 7.23 *L 7.37-7.43 Arterial Blood Partial Pressure CO2 71 *H 35-45 MMHG Arterial Blood Partial Pressure O2 66 L 79-93 MMHG Arterial Blood HCO3 29 H 23-27 MMOL/L Arterial Blood Total CO2 31.4 H 21.0-31.0 MMOL/L Arterial Blood Oxygen Saturation 93 L 94-100 % Arterial Blood Base Excess 2.2 -2.5-2.5 MMOL/L Ino Test YES-POS Blood Gas Ventilator Setting NO Blood Gas Inspired Oxygen 0 SARS-CoV-2 RNA (RT-PCR) Not Detected Not Detecte Lactic Acid Level 0.63 0.50-2.00 MMOL/L My Orders Orders - EARL HARRY LEATHER HEEL BREASTER Cbc With Automated Diff (07/07/21 17:14) Comprehensive Metabolic Panel (07/07/21 17:14) Protime With Inr (07/07/21 17:14) Arterial Blood Gas (07/07/21 17:14) Procalcitonin (Pct) (07/07/21 17:14) Chest 1 View, Ap/Pa Only (07/07/21 17:14) Bnp [place] (07/07/21 17:14) Fentanyl Inj (Sublimaze Injection) (07/07/21 17:15) Manual Differential (07/07/21 17:05) Bipap (Bilevel) Set Up (07/07/21 17:37) Covid 19 Inhouse Test (07/07/21 17:37) Lactic Acid Analyzer (07/07/21 17:46) Blood Culture (07/07/21 17:46) Piperacillin Sodium/Tazobactam (Zosyn Vi (07/07/21 18:00) Methylprednisolone Sod Succ (Solu-Medrol (07/07/21 18:00) Lactated Ringers (Lr 1000 Ml Iv Solution (07/07/21 18:00) Magnesium (07/07/21 17:52) Medications Given in ED Current Medications Medications Dose Ordered Sig/Bonnie Route Start Time Stop Time Status Last Admin Dose Admin Fentanyl Citrate 50 mcg ONCE ONCE IVP 07/07/21 17:15 07/07/21 17:17 DC 07/07/21 17:37 50 MCG Methylprednisolone Sodium Succinate 125 mg ONCE ONCE IVP 07/07/21 18:00 07/07/21 18:02 DC 07/07/21 18:10 125 MG Piperacillin Sod/ Tazobactam Sod 4.5 gm/Sodium Chloride 100 ml @ 200 mls/hr ONCE ONCE IV 07/07/21 18:00 07/07/21 18:29 DC 07/07/21 18:10 200 MLS/HR Vital Signs/I&O 07/07/21 07/07/21 17:05 17:57 Temp 36.5 Pulse 91 77 Resp 18 27 B/P (MAP) 133/61 (85) Pulse Ox 97 100 O2 Delivery Nasal Cannula O2 Flow Rate 6.00 30.00 35.00 Capillary Refill : Departure Communication (Admissions) 1189-given his lethargy and the respiratory acidosis we will put him on BiPAP treating for COPD exacerbation/CO2 narcosis. Settings are 12/6 30% FiO2 rate of 20 with current SPO2 of 94%. Arousable to verbal stimuli and answers questions appropriately NAME: JAROD LOJA [facility] REC#: [id number] PT STATUS: REG ER : 1955 PHYSICIAN: EARL HARRY APRN ADMIT DATE: 07/07/21/ER Draft Date of Exam:07/07/21 CHEST 1 VIEW, AP/PA ONLY INDICATION: Short of breath, body aches. Recent COVID vaccination. EXAMINATION: Chest, 07/07/2021. COMPARISON: 02/18/2020. FINDINGS: There is an infiltrate at the right lung base. Patchy atelectasis versus infiltrate seen in the left mid lung medially. There are no effusions. There is no pneumothorax. The heart is unremarkable. The pulmonary vasculature is stable. There is a small hiatal hernia. IMPRESSION: 1. Patchy infiltrates in the right lung base and left mid lung. Other findings incidental as described above. Dictated on workstation # [id number] Dict: 07/07/21 1735 Trans: 07/07/21 1738 [id number] Interpreted by: JUDI CATALAN MD Electronically signed by: Impression Primary Impression: COPD exacerbation Additional Impressions: Metastatic renal cell carcinoma to lung CO2 narcosis Disposition: ADMITTED INPATIENT Condition: Stable Admissions Decision to Admit Reason: Admit from ER (General) Decision to Admit/Date: Jul 07, 2021 Time/Decision to Admit Time: 17:40 Departure-Patient Inst. Referrals: SHAWN CALLEJAS MD (PCP/Family) Primary Care Physician EARL HARRY APRN Jul 07, 2021 17:20
[2021-07-07 17:27] LABS: BASOPHILS % (AUTO) 0 % (0-10); EOSINOPHILS # (AUTO) 0.2 10^3/uL (0.0-0.3); EOSINOPHILS % (AUTO) 1 % (0-10); HEMATOCRIT 35 % (40-54); HEMOGLOBIN 10.8 g/dL (13.3-17.7); LYMPHOCYTES # (AUTO) 1.5 10^3/uL (1.0-4.0); LYMPHOCYTES % (AUTO) 9 % (12-44); MEAN CORPUSCULAR HEMOGLOBIN 30 pg (25-34); MEAN CORPUSCULAR HGB CONC 31 g/dL (32-36); MEAN CORPUSCULAR VOLUME 96 fL (80-99); MEAN PLATELET VOLUME 9.7 fL (9.0-12.2); MONOCYTES # (AUTO) 1.4 10^3/uL (0.0-1.0); MONOCYTES % (AUTO) 8 % (0-12); NEUTROPHILS # (AUTO) 12.9 10^3/uL (1.8-7.8); NEUTROPHILS % (AUTO) 80 % (42-75); PLATELET COUNT 253 10^3/uL (130-400); WHITE BLOOD COUNT 16.1 10^3/uL (4.3-11.0)
[2021-07-07 17:29] LABS: ABG BASE EXCESS 2.2 MMOL/L (-2.5-2.5); ABG OXYGEN SATURATION 93 % (94-100); ABG PO2 66 MMHG (79-93); ABG TCO2 31.4 MMOL/L (21.0-31.0)
[2021-07-07 17:31] LABS: INR 1.1 (0.8-1.4); PROTHROMBIN TIME PATIENT 14.4 SEC (12.2-14.7)
[2021-07-07 17:31] LABS: ABG PCO2 71 MMHG (35-45); ABG PH 7.23 (7.37-7.43)
[2021-07-07 17:32] LABS: ALBUMIN 3.6 GM/DL (3.2-4.5)
[2021-07-07 17:32] LABS: ALLENS TEST YES-POS; INSPIRED O2 0; VENTILATOR NO
[2021-07-07 17:33] LABS: POTASSIUM 5.1 MMOL/L (3.6-5.0)
[2021-07-07 17:34] LABS: CALCIUM 9.1 MG/DL (8.5-10.1)
[2021-07-07 17:35] LABS: TOTAL PROTEIN 6.7 GM/DL (6.4-8.2)
[2021-07-07 17:37] LABS: BILIRUBIN,TOTAL 0.3 MG/DL (0.1-1.0)
--- NOTE | 2021-07-07 17:38 | Diagnostic Imaging Report ---
INDICATION: Short of breath, body aches. Recent COVID vaccination. EXAMINATION: Chest, 07/07/2021. COMPARISON: 02/18/2020. FINDINGS: There is an infiltrate at the right lung base. Patchy atelectasis versus infiltrate seen in the left mid lung medially. There are no effusions. There is no pneumothorax. The heart is unremarkable. The pulmonary vasculature is stable. There is a small hiatal hernia. IMPRESSION: 1. Patchy infiltrates in the right lung base and left mid lung. Other findings incidental as described above. Dictated by: Dictated on workstation # [id number]
[2021-07-07 17:39] LABS: CREATININE SERUM 2.73 MG/DL (0.60-1.30)
[2021-07-07 17:57] VITALS: BP 121/61
[2021-07-07] MEDS ORDERED: PIPERACILLIN SODIUM/TAZOBACTAM 4.5 GM in NS (IVPB) 100 ML IV ONE (18:00)
[2021-07-07] MEDS ORDERED: methylPREDNISolone 125 MG (Solu-MEDROL) VIAL IVP ONE (18:00)
[2021-07-07] MEDS: LACTATED RINGERS 1,000 ML IV SCH ×2 (18:10→20:35)
[2021-07-07 18:46] LABS: BAND NEUTROPHILS 2 %; EOSINOPHILS % (MANUAL) 2 %; LYMPHOCYTES % (MANUAL) 12 %; MONOCYTES % (MANUAL) 4 %; NEUTROPHILS % (MANUAL) 80 %; RBC MORPH NORMAL
--- NOTE | 2021-07-07 20:10 | Tele-ICU Progress Note ---
Assessment/Plan Assessment/Plan New admission 66 yo M history renal cell carcinoman with mets to LEFT lung presents to ED with cough x 1 week. Recent second COVID vaccine left delt on 06/30/21 with soreness. Chronic smoker, 1 PPD. Acute hypoxia in triage. ABG shows acute on chronic hypercapnic respiratory failure CXR concerning for new right lung pneumonia. COVID negative. Available chart/ vitals / labs / Images reviewed Video assessment pending (patient out of room), rest of exam as per RN A/P Acute on chronic hypoxemic and hypercanic respiratory failure COPD exacerbation Pneumonia, history of malignancy, immunocompromised host Tobacco use MARÍA Plan BPAP, Abx, IV steroid Repeat ABG ordered Repeat K 2200 AM labs Hep SC, daily PPI To ICU Consultants per primary attending of record, ? Nephrology CCT 25 min Critical Care: Critically Ill Patient Critical Care: Critically Ill Patient BINDU SOW MD Jul 07, 2021 20:10
[2021-07-07] MEDS ORDERED: LACTATED RINGERS 1,000 ML IV SCH (20:15)
[2021-07-07] MEDS ORDERED: DOXYCYCLINE 100 MG INJ (VIBRAMYCIN) ONE (20:28)
[2021-07-07] MEDS ORDERED: NS (IVPB) 100 ML ONE (20:29)
[2021-07-07] MEDS: DOXYCYCLINE INJECTION 100 MG in NS (IVPB) 100 ML IV SCH (20:35)
[2021-07-07] MEDS: PIPERACILLIN SODIUM/TAZOBACTAM 4.5 GM in NS (IVPB) 100 ML IV SCH (20:35)
[2021-07-07 22:02] VITALS: BP 102/55
[2021-07-07] MEDS: RT-ALBUTEROL/IPRATROPIUM 3 ML (DUONEB) VIAL INH SCH (22:02)
[2021-07-07] MEDS ORDERED: inSUlin ASPART (NovoLOG) 1 UNIT/0.01 ML (CHARGE PER UNIT) ONE (22:04)
[2021-07-07 22:05] LABS: ABG BASE EXCESS 1.5 MMOL/L (-2.5-2.5); ABG OXYGEN SATURATION 91 % (94-100); ABG PO2 65 MMHG (79-93); ABG TCO2 31.3 MMOL/L (21.0-31.0)
[2021-07-07] MEDS: methylPREDNISolone 40 MG/ML (Solu-MEDROL) VIAL IV SCH (22:05)
[2021-07-07] MEDS: inSUlin ASPART (NovoLOG) 1 UNIT/0.01 ML (CHARGE PER UNIT) SC SCH (22:06)
[2021-07-07 22:09] LABS: ABG PCO2 78 MMHG (35-45); ALLENS TEST YES-POS; INSPIRED O2 35%
[2021-07-07 22:10] LABS: PATIENT TEMP 37.1; VENTILATOR NO
[2021-07-07] MEDS ORDERED: NS IV 1000 ML 1,000 ML ONE (22:30)
[2021-07-07 22:49] VITALS: BP 118/60
[2021-07-07] MEDS ORDERED: PROPOFOL DRIP (ICU) 100 ML IV ONE (22:56)
--- NOTE | 2021-07-07 22:56 | Procedure/Intervention Note ---
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 He was given etomidate 20 mg then followed that with 50 mg rocuronium. 7.5 endotracheal tube was passed between the vocal cords 24 cm at the teeth fogging the tube color change on the CO2 device. Oxygen saturation miki to 100% he was attached to the ventilator. Orogastric tube placed. X-ray confirmed placement. Remained hemodynamically stable during intubation. EARL HARRY APRN Jul 07, 2021 22:56
[2021-07-07] MEDS ORDERED: SOD POLYSTERENE 15 GM/60 ML (KAYEXALATE) UNIT DOSE PO ONE (23:00)
--- NOTE | 2021-07-07 23:01 | Diagnostic Imaging Report ---
INDICATION: Intubated. EXAMINATION: Chest, 07/07/2021. COMPARISON: 07/07/2021 at 5:34 PM. FINDINGS: There are patchy infiltrates in the right lower lung. The heart and pulmonary vasculature appear stable. The upper lungs are clear. No effusions. No pneumothorax. ET tube unremarkable. A feeding tube is seen to the distal chest not definitely extending into the stomach. Correlate clinically. IMPRESSION: 1. Right base infiltrate. 2. Feeding tube tip may be in the distal esophagus. Correlate clinically. Dictated by: Dictated on workstation # [id number]
[2021-07-07] MEDS: PROPOFOL DRIP (ICU) 100 ML IV SCH (23:10)
[2021-07-07 23:23] LABS: ABG BASE EXCESS -2.1 MMOL/L (-2.5-2.5); ABG OXYGEN SATURATION 93 % (94-100); ABG PCO2 64 MMHG (35-45); ABG PO2 72 MMHG (79-93); ABG TCO2 26.8 MMOL/L (21.0-31.0)
[2021-07-07 23:24] LABS: ABG PH 7.21 (7.37-7.43)
[2021-07-07 23:25] LABS: ALLENS TEST YES-POS; INSPIRED O2 40%; PATIENT TEMP 37.1; VENTILATOR YES
[2021-07-08] MEDS ORDERED: LACTATED RINGERS 1,000 ML IV SCH (01:00)
[2021-07-08] MEDS: fentaNYL INJ 100 MCG/2 ML AMP IVP PRN ×2 (01:04→09:53)
[2021-07-08] MEDS: LACTATED RINGERS 1,000 ML IV SCH ×4 (01:04→20:23)
[2021-07-08 02:24] VITALS: BP 99/57
[2021-07-08] MEDS: RT-ALBUTEROL/IPRATROPIUM 3 ML (DUONEB) VIAL INH SCH ×5 (02:24→21:56)
[2021-07-08] MEDS ORDERED: ROCURONIUM 10 MG/ML 5 ML SYRINGE IV ONE ×2 (03:00→10:10)
[2021-07-08] MEDS ORDERED: ETOMIDATE IV SOLN 20 MG/10 ML VIAL IV ONE ×2 (03:00→10:10)
[2021-07-08] MEDS: PIPERACILLIN SODIUM/TAZOBACTAM 4.5 GM in NS (IVPB) 100 ML IV SCH ×3 (04:03→20:23)
[2021-07-08] MEDS: PROPOFOL DRIP (ICU) 100 ML IV SCH ×5 (04:05→20:24)
[2021-07-08 04:46] LABS: ABG BASE EXCESS -1.4 MMOL/L (-2.5-2.5); ABG OXYGEN SATURATION 98 % (94-100); ABG PCO2 41 MMHG (35-45); ABG PH 7.37 (7.37-7.43); ABG PO2 76 MMHG (79-93); ABG TCO2 24.6 MMOL/L (21.0-31.0); ALLENS TEST YES-POS; INSPIRED O2 35%; PATIENT TEMP 36.4; VENTILATOR YES
[2021-07-08 04:56] LABS: BASOPHILS % (AUTO) 0 % (0-10); EOSINOPHILS % (AUTO) 0 % (0-10); HEMATOCRIT 31 % (40-54); HEMOGLOBIN 9.8 g/dL (13.3-17.7); LYMPHOCYTES # (AUTO) 0.6 10^3/uL (1.0-4.0); LYMPHOCYTES % (AUTO) 5 % (12-44); MEAN CORPUSCULAR HEMOGLOBIN 30 pg (25-34); MEAN CORPUSCULAR HGB CONC 32 g/dL (32-36); MEAN CORPUSCULAR VOLUME 95 fL (80-99); MEAN PLATELET VOLUME 10.1 fL (9.0-12.2); MONOCYTES # (AUTO) 0.2 10^3/uL (0.0-1.0); MONOCYTES % (AUTO) 2 % (0-12); NEUTROPHILS # (AUTO) 10.2 10^3/uL (1.8-7.8); NEUTROPHILS % (AUTO) 93 % (42-75); PLATELET COUNT 222 10^3/uL (130-400)
[2021-07-08 05:10] LABS: POTASSIUM 5.2 MMOL/L (3.6-5.0)
[2021-07-08 05:11] LABS: CALCIUM 8.7 MG/DL (8.5-10.1)
[2021-07-08 05:12] LABS: TOTAL PROTEIN 5.7 GM/DL (6.4-8.2)
[2021-07-08 05:14] LABS: BILIRUBIN,TOTAL 0.6 MG/DL (0.1-1.0)
[2021-07-08 05:16] LABS: CREATININE SERUM 2.16 MG/DL (0.60-1.30); PHOSPHORUS 3.3 MG/DL (2.3-4.7)
[2021-07-08 05:19] LABS: MAGNESIUM 1.9 MG/DL (1.6-2.4)
[2021-07-08] MEDS: methylPREDNISolone 40 MG/ML (Solu-MEDROL) VIAL IV SCH ×3 (05:21→20:23)
[2021-07-08] MEDS ORDERED: inSUlin ASPART (NovoLOG) 1 UNIT/0.01 ML (CHARGE PER UNIT) SC ONE (05:30)
[2021-07-08 06:29] VITALS: BP 110/59
--- NOTE | 2021-07-08 07:45 | Diagnostic Imaging Report ---
INDICATION: Respiratory failure AP view of chest is obtained with comparison made to study one day earlier. Endotracheal tube and nasogastric tube remain in place. Overall heart size and pulmonary vascularity within normal limits. There is air trapping bilaterally with coarse interstitial infiltrates throughout the right lung as well as left infrahilar region. No pneumothorax or new infiltrate seen. IMPRESSION: Coarse bilateral infiltrates similar to previous study without new abnormality detected. Dictated by: Dictated on workstation # [id number]
--- NOTE | 2021-07-08 07:49 | Occ Therapy Progress Note ---
Therapy Progress Note Pt is currently intubated/sedated. OT will monitor pt and initiate tx when pt is more medically stable and able to actively participate in skilled therapy. ROSEY BERMUDEZ OT Jul 08, 2021 07:49
--- NOTE | 2021-07-08 08:06 | Physical Therapy Progress Note ---
Therapy Progress Note Orders received, pt currently intubated and sedated. Will monitor and begin treatment when pt can actively participate in skilled therapy. MARY JANE SMITH PT Jul 08, 2021 08:06
[2021-07-08] MEDS: PANTOPRAZOLE 40 MG (PROTONIX) VIAL IV SCH (08:42)
[2021-07-08] MEDS: DOXYCYCLINE INJECTION 100 MG in NS (IVPB) 100 ML IV SCH ×2 (08:42→20:23)
[2021-07-08 10:12] VITALS: BP 99/56
--- NOTE | 2021-07-08 10:13 | Tele-ICU Progress Note ---
Subjective Date Seen by a Provider: Jul 08, 2021 Time Seen by a Provider: 07:50 Subjective/Events-last exam This virtual visit was conducted using real time audio/video. Thank you for asking us to see this patient for respiratory insufficiency due to AECOPD. Also renal CA w lung mets. Recent events: ABG better. PE: Sedated on vent. VSS. O2 sat 98% on 35%/+5 HEENT: No obvious masses, adenopathy or JVD. Chest: clear to auscultation. Diminished. CV: RRR S1 S2 No murmur or added sounds. Abd: Non-tender. Bowel sounds Y. : Unremarkable. Valente Y. METAL MODEL BUILDER/psychiatric: Grossly intact. No obvious focal findings. Extremities: No edema. Capillary refill < 3 seconds. Skin: unremarkable. Results: Elevated K 5.2, BUN 52, Creat 2.16, BG 297. Decreased Hb 9.8. B.37/41/76. CXR: Hyperinflated, RLL infilt.. Available chart/ vitals / labs / images reviewed. Video assessment done using teleICU camera, rest of exam as per RN. A/P: Respiratory insufficiency: Continue vent., BDs., Medrol, Propofol. SBT in AM. Critical Care: critically ill patient. Cont. Hep., PPI, Zosyn, Doxy., SSI. Discussed with GIOVANNI Lentz. Asked RN to reach out to eICU if any questions or concerns later. Time spent with patient/coordination of care with other health professionals (mins):22 Sepsis Event Evaluation Height, Weight, BMI Height: 6'4.00" Weight: 203lbs. 5.0oz. 92.836687at; 23.30 BMI Method:Stated Focused Exam Lactate Level 07/07/21 18:10: Lactic Acid Level 0.63 Exam Exam Patient acknowledged, consented, and participated in this virtual visit which was conducted using real time audio/video Vital Signs Date Time Temp Pulse Resp B/P (MAP) Pulse Ox O2 Delivery O2 Flow Rate FiO2 07/08/21 09:54 98/54 07/08/21 09:53 98/54 07/08/21 09:00 55 23 102/55 96 Mechanical Ventilator 35.00 07/08/21 08:00 96 Mechanical Ventilator 35 2/5/22 08:00 58 23 107/57 98 Mechanical Ventilator 35.00 07/08/21 07:57 36.3 07/08/21 07:00 56 07/08/21 07:00 57 24 105/58 97 Mechanical Ventilator 35.00 07/08/21 06:29 53 24 97 35 07/08/21 06:00 53 24 110/59 98 Mechanical Ventilator 35.00 07/08/21 05:00 54 27 101/57 98 Mechanical Ventilator 35.00 07/08/21 04:05 46 99/57 07/08/21 04:00 55 28 119/74 98 Mechanical Ventilator 35.00 07/08/21 04:00 96 Mechanical Ventilator 35 07/08/21 03:30 36.4 Mechanical Ventilator 35.00 07/08/21 03:00 50 12 105/55 96 Mechanical Ventilator 40.00 07/08/21 02:24 46 24 97 40 07/08/21 02:00 47 26 105/62 99 Mechanical Ventilator 40.00 07/08/21 01:00 54 28 98/61 96 Mechanical Ventilator 40.00 07/08/21 01:00 51 07/08/21 00:00 58 23 89/51 95 Mechanical Ventilator 40.00 07/08/21 00:00 95 Mechanical Ventilator 40 07/07/21 23:10 79 118/60 07/07/21 23:00 37.0 Mechanical Ventilator 40.00 07/07/21 23:00 66 26 130/68 93 NIV Bilevel 35.00 07/07/21 22:49 79 20 95 40 07/07/21 22:45 93 Mechanical Ventilator 40 07/07/21 22:02 58 23 96 30.00 35.00 07/07/21 22:00 61 22 102/55 96 NIV Bilevel 35.00 07/07/21 21:30 75 15 121/69 99 NIV Bilevel 35.00 07/07/21 21:00 61 24 104/54 97 NIV Bilevel 35.00 07/07/21 20:45 64 22 105/50 96 NIV Bilevel 35.00 07/07/21 20:30 63 20 102/53 97 NIV Bilevel 35.00 07/07/21 20:15 63 17 102/51 97 NIV Bilevel 35.00 07/07/21 20:09 61 07/07/21 20:06 65 21 121/61 98 NIV Bilevel 35.00 07/07/21 20:00 66 25 109/63 96 OxyMask 10.00 07/07/21 19:56 37.1 07/07/21 19:55 94 NIV Bilevel 35 07/07/21 17:57 77 27 100 30.00 35.00 07/07/21 17:05 36.5 91 18 133/61 (85) 97 Nasal Cannula 6.00 I & O 07/08/21 07:00 Intake Total 2200 ml Output Total 575 ml Balance 1625 ml Height & Weight Height: 6'4.00" Weight: 203lbs. 5.0oz. 92.566558fh; 23.30 BMI Method:Stated General Appearance: No Apparent Distress, WD/WN, Chronically ill (Appears much older than stated age), Other (His oxygen saturation does drop down to 88% on room air here on arrival. He was put on 2 L with subsequent rise to 92%. falls asleep easiliy but arousable to verbal stimuli and answers sppropriately . ) Neck: Full Range of Motion, Normal Inspection, Tender Lateral, Other (Neck is tender to palpation at the base bilaterally over the trapezius muscle. Worsened by turning his head either direction.) Respiratory: No Accessory Muscle Use, No Respiratory Distress, Decreased Breath Sounds Cardiovascular: Regular Rate, Rhythm, Normal Peripheral Pulses Capillary Refill: Less Than 3 Seconds Extremity: Normal Capillary Refill, Normal Inspection Neurologic/Psychiatric: Alert, Oriented x3 Results Lab Laboratory Tests 07/07/21 17:05 07/07/21 21:50 07/08/21 04:25 Assessment/Plan Assessment/Plan See free text Critical Care: Ventilator Management PHUONG BOLDEN MD Jul 08, 2021 10:13
[2021-07-08] MEDS: inSUlin ASPART (NovoLOG) 1 UNIT/0.01 ML (CHARGE PER UNIT) SC SCH ×2 (11:32→18:16)
[2021-07-08 15:04] VITALS: BP 98/53
[2021-07-08 18:28] VITALS: BP 111/60
--- NOTE | 2021-07-08 20:32 | History & Physical-Hospitalist ---
History of Present Illness HPI/Chief Complaint Paul Mejía is a 66 year old male with PMH metastatic renal cell carcinoma to the lung s/p nephrectomy on chemotherapy, current smoker, COPD, who presented with neck and arm pain. He developed lethargy and was found to have acute hypercapnia. He was started on BiPAP. He continued to worsen and required intubation overnight. He is intubated and sedated upon my exam. Source: RN/MD Exam Limitations: clinical condition Date Seen 07/08/21 Time Seen by a Provider: 10:45 Attending Physician Shaka Thomas MD PCP Sha Clayton MD Referring Physician Date of Admission Jul 07, 2021 at 18:20 Home Medications & Allergies Home Medications Reviewed patient Home Medication Reconciliation performed by pharmacy medication reconciliations property maintenance technician and/or nursing. Patients Allergies have been reviewed. Allergies Allergies Coded Allergies meperidine (Verified Allergy, Mild, RASH, Pt has received Fentanyl w/o issue, 12/15/18) Past Kozmmfx-Stxxea-Gqbpag Hx Patient Social History Tobacco Use?: Yes Tobacco type used: Cigarettes Smoking Status: Current Everyday Smoker Substance use?: No Alcohol Use?: No Immunizations Up To Date Date of Influenza Vaccine: Mar 03, 2018 First/Initial COVID19 Vaccinat: MAY 2021 Second COVID19 Vaccination Sal: JUN 2021 Tetanus Booster (TDap): Unknown Date of Pneumonia Vaccine: Sep 08, 2014 Seasonal Allergies Seasonal Allergies: No Current Status Primary Language: Tamazight Sensory deficits: Vision impairment Past Medical History Surgeries: Abdominal, Ear Surgery, Eye Surgery, Gallbladder, Joint Replacement, Nephrectomy, Orthopedic Pneumonia, Chronic Bronchitis Currently Using CPAP: No Currently Using BIPAP: No Hypertension, Rheumatic Fever HIV/AIDS: No Chronic Diarrhea, Polyps Degenerate Disk Disease, Arthritis, Chronic Back Pain, Fractures Diabetes, Insulin dep Cataract Loss of Vision: Denies Hearing Impairment: Hard of Hearing Lung, Kidney Did You Recieve Any Treatments: Yes What Type of Treatment Did You: Chemotherapy, Surgical Intervention Blood Disorders: No Adverse Reaction/Blood Tranf: No (N/A) Family Medical History Diabetes mellitus 19 FATHER 19 MOTHER G8 BROTHER FH: skin cancer 19 MOTHER Family history: Arthritis Family history: Coronary thrombosis Family history: Diabetes mellitus History of - respiratory disease No Family History of: Abdominal aortic aneurysm [place]'s disease Alcoholism Aphasia Cancer Cancer of colon Cataract Chest pain Congenital heart disease Congestive heart failure Cystic fibrosis Dementia Dysphagia Family history: Allergy Family history: Alzheimer's disease Family history: Asthma Family history: Breast disease Family history: Cardiovascular disease Family history: Gastrointestinal disease Family history: Glaucoma Family history: Hypertension Family history: Osteoporosis Family history: Thyroid disorder Headache Hearing loss Heart disease Hereditary disease History of - anemia History of - disorder History of drug abuse Human immunodeficiency virus (HIV) seropositivity Hypercholesterolemia Infertile Kidney disease Malignant neoplasm of lung Myocardial infarction Parkinson's disease Prostate cancer Psychotic disorder Seizure disorder Stroke Tuberculosis Visual impairment No Pertinent Family Hx SOCIAL HISTORY: -ETOH--DENIES USE -SMOKES 1 PPD -DRUGS--DENIES USE PSH: -HERNIA REPAIR X 2 -BILATERAL MYRINGOTOMY TUBES -CARPAL TUNNEL SURGERY -BILATERAL CATARACT SURGERY -SCREWS IN KNEE AND LATER REMOVED -BILATERAL KNEE REPLACEMENTS 2013 -LEFT NEPHRECTOMY FOR CANCER 2013 -LUNG BIOPSY WITH PNEUMOTHORAX Review of Systems Constitutional: see HPI Physical Exam Physical Exam Vital Signs Vital Signs - First Documented 07/07/21 07/07/21 17:05 19:55 Temp 36.5 Pulse 91 Resp 18 B/P (MAP) 133/61 (85) Pulse Ox 97 O2 Delivery Nasal Cannula O2 Flow Rate 6.00 FiO2 35 Capillary Refill : Less Than 3 Seconds Height, Weight, BMI Height: 6'4.00" Weight: 203lbs. 5.0oz. 92.023334te; 23.30 BMI Method:Stated General Appearance: No Apparent Distress, WD/WN, Other (intubated and sedated) Respiratory: Lungs Clear, No Respiratory Distress, Other (intubated and mechanically ventilated) Cardiovascular: Regular Rate, Rhythm, No Murmur Gastrointestinal: Normal Bowel Sounds, Soft Extremity: Normal Inspection, No Pedal Edema Neurologic/Psychiatric: Other (sedated) Skin: Normal Color, Warm/Dry Results Results/Procedures Labs Laboratory Tests 07/07/21 17:05 07/07/21 21:50 07/08/21 04:25 Patient resulted labs reviewed. Imaging: Reviewed Imaging Report Assessment/Plan Admission Diagnosis Acute respiratory failure with hypoxia and hypercapnia Admission Status: Inpatient Order (span 2 midnights) Reason for Inpatient Admission: Respiratory failure Assessment and Plan Acute respiratory failure with hypoxia and hypercapnia COPD with acute exacerbation Pneumonia Metastatic renal cell carcinoma to the lung ABG with acute hypercapnia Started on BiPAP Required intubation overnight TeleICU consulted Solumedrol Zosyn and Doxycycline MARÍA on CKD IV fluids Improving this morning T2DM Sliding scale insulin Tobacco abuse Nicotine patch DVT prophylaxis: Heparin Critical Care Critically Ill Patient Diagnosis/Problems Diagnosis/Problems (1) Acute respiratory failure with hypoxia and hypercapnia Status: Acute (2) COPD exacerbation Status: Acute (3) PNA (pneumonia) Status: Acute (4) 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 (5) Acute kidney injury superimposed on chronic kidney disease Status: Acute (6) T2DM (type 2 diabetes mellitus) Status: Chronic Qualifiers: Diabetes mellitus [facility] 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
[2021-07-08 21:57] VITALS: BP 112/58
[2021-07-09] MEDS: fentaNYL INJ 100 MCG/2 ML AMP IVP PRN ×3 (00:16→08:23)
[2021-07-09] MEDS: inSUlin ASPART (NovoLOG) 1 UNIT/0.01 ML (CHARGE PER UNIT) SC SCH ×5 (00:16→21:10)
[2021-07-09 02:44] VITALS: BP 109/59
[2021-07-09] MEDS: RT-ALBUTEROL/IPRATROPIUM 3 ML (DUONEB) VIAL INH SCH ×6 (02:44→21:36)
[2021-07-09] MEDS: PIPERACILLIN SODIUM/TAZOBACTAM 4.5 GM in NS (IVPB) 100 ML IV SCH ×3 (04:07→20:06)
[2021-07-09] MEDS: LACTATED RINGERS 1,000 ML IV SCH ×3 (04:07→23:25)
[2021-07-09 04:41] LABS: ABG BASE EXCESS -0.9 MMOL/L (-2.5-2.5); ABG OXYGEN SATURATION 96 % (94-100); ABG PCO2 45 MMHG (35-45); ABG PH 7.35 (7.37-7.43); ABG PO2 76 MMHG (79-93); ABG TCO2 25.5 MMOL/L (21.0-31.0)
[2021-07-09 04:42] LABS: BASOPHILS % (AUTO) 0 % (0-10); EOSINOPHILS % (AUTO) 0 % (0-10); HEMATOCRIT 30 % (40-54); HEMOGLOBIN 9.6 g/dL (13.3-17.7); LYMPHOCYTES # (AUTO) 0.7 10^3/uL (1.0-4.0); LYMPHOCYTES % (AUTO) 5 % (12-44); MEAN CORPUSCULAR HEMOGLOBIN 30 pg (25-34); MEAN CORPUSCULAR HGB CONC 32 g/dL (32-36); MEAN CORPUSCULAR VOLUME 92 fL (80-99); MEAN PLATELET VOLUME 10.1 fL (9.0-12.2); MONOCYTES # (AUTO) 0.5 10^3/uL (0.0-1.0); MONOCYTES % (AUTO) 4 % (0-12); NEUTROPHILS # (AUTO) 12.5 10^3/uL (1.8-7.8); NEUTROPHILS % (AUTO) 90 % (42-75); PLATELET COUNT 237 10^3/uL (130-400); WHITE BLOOD COUNT 13.8 10^3/uL (4.3-11.0)
[2021-07-09 04:44] LABS: ALLENS TEST YES-POS; INSPIRED O2 30%; VENTILATOR YES
[2021-07-09 04:45] LABS: PATIENT TEMP 36.4
[2021-07-09 05:04] LABS: ALBUMIN 2.9 GM/DL (3.2-4.5); POTASSIUM 4.5 MMOL/L (3.6-5.0)
[2021-07-09 05:05] LABS: CALCIUM 8.3 MG/DL (8.5-10.1)
[2021-07-09 05:06] LABS: TOTAL PROTEIN 5.5 GM/DL (6.4-8.2)
[2021-07-09 05:08] LABS: BILIRUBIN,TOTAL 0.3 MG/DL (0.1-1.0)
[2021-07-09 05:10] LABS: CREATININE SERUM 1.89 MG/DL (0.60-1.30); PHOSPHORUS 4.5 MG/DL (2.3-4.7)
[2021-07-09 05:12] LABS: MAGNESIUM 2.1 MG/DL (1.6-2.4)
[2021-07-09] MEDS: methylPREDNISolone 40 MG/ML (Solu-MEDROL) VIAL IV SCH ×3 (05:30→21:10)
[2021-07-09] MEDS: PROPOFOL DRIP (ICU) 100 ML IV SCH (05:31)
[2021-07-09 06:49] VITALS: BP 112/57
[2021-07-09] MEDS: PANTOPRAZOLE 40 MG (PROTONIX) VIAL IV SCH (08:22)
[2021-07-09] MEDS: NICOTINE 14 MG (NICODERM) PATCH TD SCH (08:23)
[2021-07-09] MEDS: DOXYCYCLINE INJECTION 100 MG in NS (IVPB) 100 ML IV SCH ×2 (08:23→20:06)
--- NOTE | 2021-07-09 08:31 | Diagnostic Imaging Report ---
EXAMINATION: Chest radiograph, portable AP view. DATE: 07/09/2021 7:57 AM INDICATION: 66-year-old male, intubation. COMPARISON: July 08, 2021. FINDINGS: The endotracheal tube is approximately 6.8 cm above the kusum. The nasogastric tube extends to the inferior margin of the included [id number]. Heart size and mediastinal contours are unchanged. There is no identified pneumothorax. There are streaky opacities in the right lung base. There is no identified interval focal airspace consolidation. IMPRESSION: 1. Unchanged streaky opacities in the right lung base which may relate to atelectasis and/or infiltrate. 2. Support lines and tubes, as above, without apparent complication. Dictated by: Dictated on workstation # [id number]
--- NOTE | 2021-07-09 09:04 | Tele-ICU Progress Note ---
Subjective Date Seen by a Provider: Jul 09, 2021 Time Seen by a Provider: 07:45 Subjective/Events-last exam This virtual visit was conducted using real time audio/video. Thank you for asking us to see this patient for respiratory insufficiency due to AECOPD. Also renal CA w lung mets. Recent events: Pt extubated just now. PE: Appears comfortable. VSS. O2 sat 94% on NC HEENT: No obvious masses, adenopathy or JVD. Chest: clear to auscultation. Diminished. CV: RRR S1 S2 No murmur or added sounds. Abd: Non-tender. Bowel sounds Y. : Unremarkable. Valente Y. DOCK OR PIER LABORER/psychiatric: Grossly intact. No obvious focal findings. Extremities: No edema. Capillary refill < 3 seconds. Skin: unremarkable. Results: Elevated BUN 48, Creat 1.89, BG 297. Decreased Hb 9.6. CXR: Hyperinflated, RLL infilt.. Available chart/ vitals / labs / images reviewed. Video assessment done using teleICU camera, rest of exam as per RN. A/P: Respiratory insufficiency: Continue BDs., Medrol, Propofol. SBT successful and pt. extubated.. Critical Care: critically ill patient. Cont. Hep., PPI, Zosyn, Doxy., SSI. Discussed with GIOVANNI Lentz. Asked RN to reach out to eICU if any questions or concerns later. Time spent with patient/coordination of care with other health professionals (mins):20 Sepsis Event Evaluation Height, Weight, BMI Height: 6'4.00" Weight: 203lbs. 5.0oz. 92.338465kh; 23.30 BMI Method:Stated Focused Exam Lactate Level 07/07/21 18:10: Lactic Acid Level 0.63 Exam Exam Patient acknowledged, consented, and participated in this virtual visit which was conducted using real time audio/video Vital Signs Date Time Temp Pulse Resp B/P (MAP) Pulse Ox O2 Delivery O2 Flow Rate FiO2 07/09/21 08:00 52 27 114/58 96 Mechanical Ventilator 35.00 07/09/21 08:00 36.4 07/09/21 07:00 52 23 107/54 97 Mechanical Ventilator 35.00 07/09/21 07:00 54 07/09/21 06:49 53 24 97 30 2/6/22 06:00 56 24 114/57 96 Mechanical Ventilator 35.00 07/09/21 05:31 65 113/55 07/09/21 05:00 60 24 109/56 96 Mechanical Ventilator 35.00 07/09/21 04:15 97 Mechanical Ventilator 30 07/09/21 04:00 65 24 113/55 95 Mechanical Ventilator 35.00 07/09/21 03:00 68 26 111/51 96 Mechanical Ventilator 35.00 07/09/21 03:00 36.6 Mechanical Ventilator 30.00 07/09/21 02:44 56 24 95 30 07/09/21 02:00 55 24 113/55 94 Mechanical Ventilator 35.00 07/09/21 01:00 56 12 107/52 94 Mechanical Ventilator 35.00 07/09/21 01:00 56 07/09/21 00:04 94 Mechanical Ventilator 35 07/09/21 00:00 56 24 116/60 96 Mechanical Ventilator 35.00 07/08/21 23:00 57 24 118/58 94 Mechanical Ventilator 35.00 07/08/21 23:00 36.6 Mechanical Ventilator 35.00 07/08/21 22:00 58 23 116/60 95 Mechanical Ventilator 35.00 07/08/21 21:57 57 24 95 30 07/08/21 21:00 60 23 108/56 93 Mechanical Ventilator 35.00 07/08/21 20:26 36.4 07/08/21 20:24 51 111/60 07/08/21 20:22 51 111/60 07/08/21 20:00 56 20 111/55 95 Mechanical Ventilator 35.00 07/08/21 20:00 95 Mechanical Ventilator 35 07/08/21 19:00 Mechanical Ventilator 35.00 07/08/21 19:00 55 23 107/56 94 Mechanical Ventilator 35.00 07/08/21 19:00 56 07/08/21 18:28 51 24 97 30 07/08/21 18:00 51 16 111/56 96 Mechanical Ventilator 35.00 07/08/21 17:00 56 24 105/56 99 Mechanical Ventilator 35.00 07/08/21 16:00 58 23 96/52 93 Mechanical Ventilator 35.00 07/08/21 15:52 36.4 07/08/21 15:32 96 Mechanical Ventilator 35 07/08/21 15:04 54 24 97 35 07/08/21 15:00 56 23 98/53 97 Mechanical Ventilator 35.00 07/08/21 14:00 55 20 99/54 99 Mechanical Ventilator 35.00 07/08/21 13:00 55 19 98/52 97 Mechanical Ventilator 35.00 07/08/21 12:53 57 07/08/21 12:00 56 12 97/53 100 Mechanical Ventilator 35.00 07/08/21 12:00 96 Mechanical Ventilator 35 07/08/21 11:58 36.2 Trach Collar 07/08/21 11:00 56 23 105/56 98 Mechanical Ventilator 35.00 07/08/21 10:12 54 24 97 35 07/08/21 10:00 58 23 99/56 96 Mechanical Ventilator 35.00 07/08/21 09:54 98/54 07/08/21 09:53 98/54 I & O 07/09/21 07:00 Intake Total 2490 ml Output Total 1400 ml Balance 1090 ml Height & Weight Height: 6'4.00" Weight: 203lbs. 5.0oz. 92.268397cy; 23.30 BMI Method:Stated General Appearance: No Apparent Distress, WD/WN, Other (intubated and sedated) Neck: Full Range of Motion, Normal Inspection, Tender Lateral, Other (Neck is tender to palpation at the base bilaterally over the trapezius muscle. Worsened by turning his head either direction.) Respiratory: Lungs Clear, No Respiratory Distress, Other (intubated and mechanically ventilated) Cardiovascular: Regular Rate, Rhythm, No Murmur Capillary Refill: Less Than 3 Seconds Extremity: Normal Inspection, No Pedal Edema Neurologic/Psychiatric: Other (sedated) Skin: Normal Color, Warm/Dry Results Lab Laboratory Tests 07/07/21 17:05 07/07/21 21:50 07/08/21 04:25 07/09/21 04:21 Assessment/Plan Assessment/Plan See free text. Critical Care: Ventilator Management PHUONG BOLDEN MD Jul 09, 2021 09:04
--- NOTE | 2021-07-09 21:24 | Progress Note - Hospitalist ---
Subjective HPI/CC On Admission Date Seen by Provider: Jul 09, 2021 Time Seen by Provider: 10:20 Paul Mejía is a 66 year old male with PMH metastatic renal cell carcinoma to the lung s/p nephrectomy on chemotherapy, current smoker, COPD, who presented with neck and arm pain. He developed lethargy and was found to have acute hyperc apnia. He was started on BiPAP. He continued to worsen and required intubation overnight. He is intubated and sedated upon my exam. Subjective/Events-last exam He was extubated this morning. He is feeling well. He denies shortness of breath. He denies pain. He is hungry. Focused Exam Lactate Level 07/07/21 18:10: Lactic Acid Level 0.63 Objective Exam Vital Signs Vital Signs Date Time Temp Pulse Resp B/P (MAP) Pulse Ox O2 Delivery O2 Flow Rate FiO2 07/09/21 20:00 37.1 85 21 116/53 92 Nasal Cannula 3.00 07/09/21 08:35 30 Capillary Refill : Less Than 3 Seconds General Appearance: No Apparent Distress, WD/WN Respiratory: No Respiratory Distress, Wheezing Cardiovascular: Regular Rate, Rhythm, No Murmur Gastrointestinal: Normal Bowel Sounds, Soft Extremity: Normal Inspection, No Pedal Edema Neurologic/Psychiatric: Alert, No Motor/Sensory Deficits Skin: Normal Color, Warm/Dry Results/Procedures Lab Laboratory Tests 07/09/21 04:21 Patient resulted labs reviewed. Imaging: Reviewed Imaging Report Assessment/Plan Assessment and Plan Assess & Plan/Chief Complaint Acute respiratory failure with hypoxia and hypercapnia Endotracheally intubated COPD with acute exacerbation Pneumonia Metastatic renal cell carcinoma to the lung Extubated this morning TeleICU consulted Solumedrol Sputum culture with Pseudomonas and H influenza Zosyn and Doxycycline MARÍA on CKD IV fluids Improving this morning T2DM Sliding scale insulin Tobacco abuse Nicotine patch DVT prophylaxis: Heparin Critical Care Critically Ill Patient Diagnosis/Problems Diagnosis/Problems (1) Acute respiratory failure with hypoxia and hypercapnia Status: Acute (2) COPD exacerbation Status: Acute (3) PNA (pneumonia) Status: Acute (4) 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 (5) Acute kidney injury superimposed on chronic kidney disease Status: Acute (6) T2DM (type 2 diabetes mellitus) Status: Chronic Qualifiers: 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
[2021-07-10] MEDS: RT-ALBUTEROL/IPRATROPIUM 3 ML (DUONEB) VIAL INH SCH ×6 (01:53→23:20)
[2021-07-10] MEDS: PIPERACILLIN SODIUM/TAZOBACTAM 4.5 GM in NS (IVPB) 100 ML IV SCH ×3 (04:06→22:00)
[2021-07-10] MEDS: methylPREDNISolone 40 MG/ML (Solu-MEDROL) VIAL IV SCH ×3 (05:29→22:07)
[2021-07-10] MEDS: inSUlin ASPART (NovoLOG) 1 UNIT/0.01 ML (CHARGE PER UNIT) SC SCH ×4 (05:31→22:00)
[2021-07-10 05:37] LABS: BASOPHILS % (AUTO) 0 % (0-10); EOSINOPHILS % (AUTO) 0 % (0-10); HEMATOCRIT 30 % (40-54); HEMOGLOBIN 9.6 g/dL (13.3-17.7); LYMPHOCYTES # (AUTO) 0.6 10^3/uL (1.0-4.0); LYMPHOCYTES % (AUTO) 4 % (12-44); MEAN CORPUSCULAR HEMOGLOBIN 30 pg (25-34); MEAN CORPUSCULAR HGB CONC 32 g/dL (32-36); MEAN CORPUSCULAR VOLUME 93 fL (80-99); MEAN PLATELET VOLUME 10.1 fL (9.0-12.2); MONOCYTES # (AUTO) 0.4 10^3/uL (0.0-1.0); MONOCYTES % (AUTO) 3 % (0-12); NEUTROPHILS # (AUTO) 13.2 10^3/uL (1.8-7.8); NEUTROPHILS % (AUTO) 91 % (42-75); PLATELET COUNT 243 10^3/uL (130-400); WHITE BLOOD COUNT 14.4 10^3/uL (4.3-11.0)
[2021-07-10 05:56] LABS: ALBUMIN 2.8 GM/DL (3.2-4.5)
[2021-07-10 05:57] LABS: POTASSIUM 4.9 MMOL/L (3.6-5.0)
[2021-07-10 05:58] LABS: CALCIUM 8.3 MG/DL (8.5-10.1)
[2021-07-10 05:59] LABS: TOTAL PROTEIN 5.3 GM/DL (6.4-8.2)
[2021-07-10 06:01] LABS: BILIRUBIN,TOTAL 0.3 MG/DL (0.1-1.0)
[2021-07-10 06:02] LABS: PHOSPHORUS 3.6 MG/DL (2.3-4.7)
[2021-07-10 06:03] LABS: CREATININE SERUM 1.73 MG/DL (0.60-1.30)
[2021-07-10 06:05] LABS: MAGNESIUM 1.9 MG/DL (1.6-2.4)
--- NOTE | 2021-07-10 09:08 | Physical Therapy Evaluation ---
PT Evaluation-General Medical Diagnosis Admission Date Jul 07, 2021 at 18:20 Medical Diagnosis: COPD, SOA Onset Date: Jul 07, 2021 Therapy Diagnosis Therapy Diagnosis: Weakness, debility Height/Weight Height (Feet): 6 Height (Inches): 4.00 Weight (Pounds): 203 Weight (Ounces): 5.0 Precautions Precautions/Isolations: Fall Prevention, Standard Precautions Referral Physician: Doeing Reason for Referral: Evaluation/Treatment Medical History Pertinent Medical History: Arthritis, DM, Smoking Additional Medical History Cancer Current History Patient presented to ER with complaints of neck and shoulder pain and SOA. Reviewed History: Yes Social History Home: Single Level Current Living Status: Friend Entry Into Home: Stairs With Railing PT Steps Into Home: 4 Prior Prior Level of Function SCALE: Activities may be completed with or without assistive devices. 6-Fcoskzuare-tltupem completes the activity by him/herself with no assistance from a helper. 5-Set-up or Clean-up Assistance-helper sets up or cleans up; patient completes activity. [place] assists only prior to or following the activity. 4-Supervision or Touching Assistance-helper provides verbal cues and/or touching/steadying and/or contact guard assistance as patient completes activity. Assistance may be provided throughout the activity or intermittently. 3-Partial/Moderate Assistance-helper does LESS THAN HALF the effort. [place] lifts, holds or supports trunk or limbs, but provides less than half the effort. 2-Substantial/Maximal Assistance-helper does MORE THAN HALF the effort. [place] lifts or holds trunk or limbs and provides more than half the effort. 3-Qlllkqwpg-wdwvlp does ALL the effort. Patient does none of the effort to complete the activity. Or, the assistance of 2 or more helpers is required for the patient to complete the activity. If activity was not attempted, code reason: 7-Patient Refused. 9-Not Applicable-not attempted and the patient did not perform the activity before the current illness, exacerbation or injury. 10-Not Attempted due to Environmental Limitations-(lack of equipment, weather restraints, etc.). 88-Not Attempted due to Medical Conditions or Safety Concerns. Bed Mobility: 6 Transfers (B,C,W/C): 6 Gait: 6 Stairs: 6 Indoor Mobility (Ambulation): Independent Stairs: Independent PT Evaluation-Current Subjective Patient presented laying in bed and agreed to participate in physical therapy. Objective Patient Orientation: Person, Place, Situation Attachments: Oxygen, Valente Catheter, IV ROM/Strength ROM Lower Extremities WFL Strength Lower Extremities 4/5 strength bilateral grossly Integumentary/Posture Bladder Incontinence: Valente Cath Posture Patient had increased kyphosis Neuromuscular (Tone, Coordination, Reflexes) grossly intact Sensory Vision: Wears Glasses Hearing: Functional Transfers Lying to Sitting/Side of Bed(Q: 3 Sit to Stand (QC): 3 Chair/Vaj-hb-Qxfpg Xfer(QC): 3 Patient required min assist for all transfers Gait Does the Patient Walk?: Yes Mode of Locomotion: Walk Anticipated Mode of Locomotion: Walk Walk 10 feet (QC): 3 Distance: 15' Gait Assistive Device: FWW Comments/Gait Description Patient ambulated around his bed to his chair with FWW and min assist. Patient ambulated slowly Balance Sitting Static: Normal Sitting Dynamic: Normal Standing Static: Normal Standing Dynamic: Fair Assessment/Needs Patient performed bed mobility and ambulated to his chair during therapy session. Patient required min assist for all transfers and ambulation. Patient required skilled therapy to increase endurance and strength to return to PLOF. Rehab Potential: Fair PT [facility] Goals Motor Man Goals PT [facility]itentiary Goals Time Frame: Jul 22, 2021 Roll Left & Right (QC): 6 Sit to Lying (QC): 6 Lying-Sitting on Side/Bed(QC): 6 Sit to Stand (QC): 6 Chair/Ayo-cw-Qzywd Xfer(QC): 6 Toilet Transfer (QC): 6 Does the Patient Walk: Yes Walk 10 feet (QC): 6 Walk 50ft with 2 Turns (QC): 6 Walk 150 ft (QC): 6 PT Plan Problem List Problem List: Activity Tolerance, Functional Strength, Safety, Balance, Gait, Transfer, Bed Mobility, ROM Treatment/Plan Treatment Plan: Continue Plan of Care Treatment Plan: Bed Mobility, Education, Functional Activity Deshawn, Functional Strength, Gait, Safety, Therapeutic Exercise, Transfers Treatment Duration: Jul 22, 2021 Frequency: 6 times per week Estimated Hrs Per Day: .25 hour per day Time/GCodes Time In: 730 Time Out: 752 Total Billed Treatment Time: 22 Total Billed Treatment 1 Visit EVMod 22 min SUE CONTRERAS PT Jul 10, 2021 09:08
[2021-07-10] MEDS: DOXYCYCLINE INJECTION 100 MG in NS (IVPB) 100 ML IV SCH (09:50)
[2021-07-10] MEDS: NICOTINE 14 MG (NICODERM) PATCH TD SCH (09:50)
[2021-07-10] MEDS: PANTOPRAZOLE 40 MG (PROTONIX) VIAL IV SCH (09:50)
[2021-07-10] MEDS ORDERED: oxyCODONE/APAP 5/325MG (PERCOCET 5) TABLET PO PRN (10:00)
[2021-07-10] MEDS ORDERED: HYDROcodone/APAP 5 MG/325 MG (LORTAB) TAB PO PRN (10:00)
--- NOTE | 2021-07-10 11:13 | Progress Note - Hospitalist ---
TEMITOPEERIC 07/10/21 1113: Subjective HPI/CC On Admission Date Seen by Provider: Jul 10, 2021 Time Seen by Provider: 09:00 Paul Mejía is a 66 year old male with PMH metastatic renal cell carcinoma to the lung s/p nephrectomy on chemotherapy, current smoker, COPD, who presented with neck and arm pain. He developed lethargy and was found to have acute hypercapnia. He was started on BiPAP. He continued to worsen and required intubation overnight. He is intubated and sedated upon my exam. Subjective/Events-last exam Patient doing well. Tolerated extubation well overnight. Up in chair resting; e ating breakfast. Review of Systems General: No Chills, No Night Sweats HEENT: No Head Aches, No Visual Changes, No Eye Pain Pulmonary: Dyspnea, Cough Cardiovascular: No: Chest Pain, Palpitations, Edema Gastrointestinal: No: Nausea, Vomiting, Abdominal Pain, Diarrhea Genitourinary: No Dysuria, No Frequency Musculoskeletal: No: leg pain, foot pain Neurological: No: Weakness, Numbness Focused Exam Lactate Level 07/07/21 18:10: Lactic Acid Level 0.63 Objective Exam Vital Signs Vital Signs Date Time Temp Pulse Resp B/P (MAP) Pulse Ox O2 Delivery O2 Flow Rate FiO2 07/10/21 10:12 94 Nasal Cannula 3.00 07/10/21 08:00 87 110/98 07/10/21 07:00 20 07/10/21 04:10 36.4 07/09/21 08:35 30 Capillary Refill : Less Than 3 Seconds General Appearance: No Apparent Distress, WD/WN HEENT: PERRL/EOMI, TMs Normal, Pharynx Normal, Moist Mucous Membranes Neck: Full Range of Motion, Normal Inspection, Non Tender Respiratory: Chest Non Tender, Lungs Clear, Normal Breath Sounds, No Accessory Muscle Use, No Respiratory Distress Cardiovascular: Regular Rate, Rhythm, No Edema, No Gallop, No JVD, No Murmur, Normal Peripheral Pulses Gastrointestinal: Normal Bowel Sounds, No Organomegaly, Non Tender, Soft Rectal: Deferred Extremity: Normal Capillary Refill, Normal Inspection Neurologic/Psychiatric: Alert, Oriented x3, No Motor/Sensory Deficits, Normal Mood/Affect Skin: Normal Color, Warm/Dry Lymphatic: No Adenopathy Results/Procedures Lab Laboratory Tests 07/10/21 04:59 Patient resulted labs reviewed. Imaging: Reviewed Imaging Report Diagnosis/Problems Diagnosis/Problems (1) RESPIRATORY FAILURE, UNSP, UNSP W HYPOXIA OR HYPERCAPNIA Onset Date: ~ 07/08/2021 Status: Acute Assessment & Plan: Extubated 07/09 Maintaining O2 sats via NC Solumedrol (2) PNA (pneumonia) Status: Acute Assessment & Plan: Sputum Cx: Pseudomonas & H. influenzae Zosyn (D#3) Doxycycline (D#3) Qualifiers: Qualified Codes: J15.1 - Pneumonia due to Pseudomonas (3) Acute kidney injury superimposed on chronic kidney disease Onset Date: ~ 07/08/2021 Status: Acute Assessment & Plan: Cr 2.73 on admission Cr 1.73 today Resolving IVF 100ml/hr (4) 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 Assessment & Plan: s/p left nephrectomy (5) T2DM (type 2 diabetes mellitus) Status: Chronic Assessment & Plan: Sliding scale insulin Qualifiers: Qualified Codes: E11.65 - Type 2 diabetes mellitus with hyperglycemia; Z79.4 - penitentiary (current) use of insulin Clinical Quality Measures Smoking Cessation Counseling: Counseling-Symptomatic: 3-10 Minutes Discussed Options Including: Nicotine Patch DANIELLE COYLE DO 07/11/21 0508: Subjective Subjective/Events-last exam Pt doing a lot better Creatinine was 1.73 Normal saline at 100 an hour, will hep lock that Zosyn and Doxycycline maintained but will discontinue Doxycycline COPD exacerbation responding to IV steroids Review of Systems General: Fatigue Pulmonary: Dyspnea Objective Exam General Appearance: No Apparent Distress, WD/WN, Anxious, Chronically ill, Thin Respiratory: Lungs Clear, Normal Breath Sounds Cardiovascular: Regular Rate, Rhythm Neurologic/Psychiatric: Alert, Oriented x3, No Motor/Sensory Deficits, Normal Mood/Affect Assessment/Plan Assessment and Plan Assess & Plan/Chief Complaint Assessment: Acute respiratory failure with hypoxia and hypercapnia improved Endotracheally intubated now extubated COPD with acute exacerbation Pneumonia maintain Zosyn DC doxy Metastatic renal cell carcinoma to the lung Extubated this morning TeleICU consulted Solumedrol Sputum culture with Pseudomonas and H influenza Zosyn and Doxycycline MARÍA on CKD IV fluids Hep-Lock Improving this morning T2DM Sliding scale insulin Tobacco abuse Nicotine patch DVT prophylaxis: Heparin Supervisory-Addendum Brief Verification & Attestation Participated in pt care: history, MDM, physical Personally performed: exam, history, MDM, supervision of care Care discussed with: Medical Student Procedures: n/a Results interpretation: Verified all documentation Verification and Attestation of Medical Student E/M Service A medical student performed and documented this service in my presence. I reviewed and verified all information documented by the medical student and made modifications to such information, when appropriate. I personally performed the physical exam and medical decision making. Danielle Coyle, Jul 11, 2021,05:06 ERIC LINN Jul 10, 2021 11:13 DANIELLE COYLE DO Jul 11, 2021 05:08
--- NOTE | 2021-07-10 11:52 | Occupational Therapy Eval ---
OT Evaluation-General/PLF Medical Diagnosis Admission Date Jul 07, 2021 at 18:20 Medical Diagnosis: COPD, SOA Onset Date: Jul 07, 2021 Therapy Diagnosis Therapy Diagnosis: decreased ADL status, decreased activity tolerance. Height/Weight Height (Feet): 6 Height (Inches): 4.00 Weight (Pounds): 203 Weight (Ounces): 5.0 Precautions Precautions/Isolations: Fall Prevention, Standard Precautions Referral Physician: Doeing Referral Reason: Evaluation/Treatment Medical History Pertinent Medical History: Arthritis, DM, Smoking Additional Medical History metastatic renal cell carcinoma to the lung s/p nephrectomy. COPD, current smoker, HTN, arthritis, DM Current History presents with neck and arm pain, developed lethargy, found to have acute hypercapnia. stated on BiPAP, worsened requiring intubation. Social History Home: Single Level Current Living Status: Friend Entry Into Home: Stairs With Railing Steps Into Home: 4 ADL-Prior Level of Function SCALE: Activities may be completed with or without assistive devices. 4-Xedkxgjwmq-jbitunh completes the activity by him/herself with no assistance from a helper. 5-Set-up or Clean-up Assistance-helper sets up or cleans up; patient completes activity. [place] assists only prior to or following the activity. 4-Supervision or Touching Assistance-helper provides verbal cues and/or touching/steadying and/or contact guard assistance as patient completes activity. Assistance may be provided throughout the activity or intermittently. 3-Partial/Moderate Assistance-helper does LESS THAN HALF the effort. [place] lifts, holds or supports trunk or limbs, but provides less than half the effort. 2-Substantial/Maximal Assistance-helper does MORE THAN HALF the effort. [place] lifts or holds trunk or limbs and provides more than half the effort. 5-Rxbuhtker-mkubyw does ALL the effort. Patient does none of the effort to complete the activity. Or, the assistance of 2 or more helpers is required for the patient to complete the activity. If activity was not attempted, code reason: 7-Patient Refused. 9-Not Applicable-not attempted and the patient did not perform the activity before the current illness, exacerbation or injury. 10-Not Attempted due to Environmental Limitations-(lack of equipment, weather restraints, etc.). 88-Not Attempted due to Medical Conditions or Safety Concerns. ADL PLOF Comments Pt reports IND with ADLs and functional mobility at OF, no AD. 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 Self Care: Independent Functional Cognition: Independent OT Current Status Subjective Pt up in recliner, agreeable to OT tx. Mental Status/Objective Patient Orientation: Person, Place, Time, Situation Attachments: Valente Catheter, IV, Oxygen Current Hand Dominance: Right Upper Extremity ROM WFL, BUE shoulder flexion to approx 150 degrees. Upper Extremity Coordination WFL Upper Extremity Strength grossly 4+/5 ADL-Treatment Eating (QC): 6 (IND per pt report) Oral Hygiene (QC): 5 (set up assist per clincial judgment.) On/Off Footwear (QC): 4 (SBA, pt able to don/doff with cues for breathing due to decrease in O2 saturation) Other Treatments Pt up in recliner, agreeable to OT Tx. In order to increase BUE strength and activity tolerance, pt completed x10 reps each of the following BUE: shoulder flexion, elbow flexion/extension, wrist flexion/extension. Pt's O2 saturation d ropped to mid 80%'s with exercises, with cues for pursed lip breathing, returned to 90%'s within several seconds. Pt reports increased pain in LUE at elbow due to IV site, pt did not verbalize pain rating. Pt then able to doff/don gripper socks, O2 saturation dropping to low 70%'s requiring cues for pursed lip breathing. O2 saturation increased to 90%'s after a couple of minutes. Post tx, pt in recliner, call light in reach and all needs met. Education OT Patient Education: Correct positioning, Modified ADL techniques, Progress toward Goal/Update tx plan, Purpose of tx/functional activities Teaching Recipient: Patient Teaching Methods: Demonstration, Discussion Response to Teaching: Verbalize Understanding, Return Demonstration OT Minister Helper Goals [facility] Goals Time Frame: Jul 21, 2021 Eating (QC): 6 Oral Hygiene (QC): 6 Toileting Hygiene (QC): 6 Shower/Bathe Self (QC): 6 Upper Body Dressing (QC): 6 Lower Body Dressing (QC): 6 On/Off Footwear (QC): 6 Additional Goals: 1-Demonstrate ADL Tasks, 2-Verbalize Understanding, 3- ImproveStrength/Deshawn 1=Demonstrate adherence to instructed precautions during ADL tasks. 2=Patient will verbalize/demonstrate understanding of assistive devices/modifications for ADL. 3=Patient will improve strength/tolerance for activity to enable patient to perform ADL's. OT Education/Plan Problem List/Assessment Assessment: Decreased Activ Tolerance, Decreased UE Strength, Impaired Funct Balance, Impaired I ADL's, Impaired Self-Care Skills Discharge Recommendations Plan/Recommendations: Continue POC Treatment Plan/Plan of Care Patient would benefit from OT for education, treatment and training to promote independence in ADL's, mobility, safety and/or upper extremity function for ADL's. Plan of Care: ADL Retraining, Functional Mobility, UE Funct Exercise/Act Treatment Duration: Jul 21, 2021 Frequency: 3 times per week (3-5 times per week) Rehab Potential: Fair Time/GCodes Start Time: 11:19 Stop Time: 11:30 Total Time Billed (hr/min): 11 Billed Treatment Time 1, ROSEY BEAN OT Jul 10, 2021 11:52
[2021-07-10] MEDS: GABAPENTIN 300 MG (NEURONTIN) CAP PO SCH ×2 (12:14→21:46)
[2021-07-10] MEDS ORDERED: CHOL100048 PO (15:22)
[2021-07-10] MEDS ORDERED: GABA300C PO (15:22)
[2021-07-10] MEDS ORDERED: FLUT1BLS IH (15:33)
[2021-07-10] MEDS ORDERED: FLUT9.9S NSEACH (15:33)
[2021-07-10] MEDS ORDERED: ACET-2267 PO (15:33)
[2021-07-10] MEDS ORDERED: RT-ALBUINH IH (15:33)
[2021-07-10] MEDS ORDERED: DOXYCYCLINE 100 MG (VIBRAMYCIN) TABLET PO SCH (17:00)
[2021-07-10] MEDS: COLESTIPOL 1 GM (COLESTID) TAB PO SCH (21:56)
[2021-07-10] MEDS: FERROUS SULF 325 MG (IRON) TAB PO SCH (21:59)
[2021-07-11] MEDS: RT-ALBUTEROL/IPRATROPIUM 3 ML (DUONEB) VIAL INH SCH ×6 (02:34→22:15)
[2021-07-11] MEDS: PIPERACILLIN SODIUM/TAZOBACTAM 4.5 GM in NS (IVPB) 100 ML IV SCH ×3 (05:11→20:39)
[2021-07-11] MEDS: inSUlin ASPART (NovoLOG) 1 UNIT/0.01 ML (CHARGE PER UNIT) SC SCH ×4 (05:23→20:40)
[2021-07-11] MEDS: methylPREDNISolone 40 MG/ML (Solu-MEDROL) VIAL IV SCH ×2 (05:24→20:39)
[2021-07-11 06:36] LABS: BASOPHILS % (AUTO) 0 % (0-10); EOSINOPHILS % (AUTO) 0 % (0-10); HEMATOCRIT 34 % (40-54); HEMOGLOBIN 10.8 g/dL (13.3-17.7); LYMPHOCYTES # (AUTO) 0.7 10^3/uL (1.0-4.0); LYMPHOCYTES % (AUTO) 5 % (12-44); MEAN CORPUSCULAR HEMOGLOBIN 30 pg (25-34); MEAN CORPUSCULAR HGB CONC 32 g/dL (32-36); MEAN CORPUSCULAR VOLUME 93 fL (80-99); MEAN PLATELET VOLUME 10.1 fL (9.0-12.2); MONOCYTES # (AUTO) 0.5 10^3/uL (0.0-1.0); MONOCYTES % (AUTO) 3 % (0-12); NEUTROPHILS % (AUTO) 90 % (42-75); PLATELET COUNT 245 10^3/uL (130-400); WHITE BLOOD COUNT 15.6 10^3/uL (4.3-11.0)
[2021-07-11 06:46] LABS: ALBUMIN 3.1 GM/DL (3.2-4.5); POTASSIUM 5.2 MMOL/L (3.6-5.0)
[2021-07-11 06:48] LABS: CALCIUM 8.4 MG/DL (8.5-10.1)
[2021-07-11 06:49] LABS: TOTAL PROTEIN 5.9 GM/DL (6.4-8.2)
[2021-07-11 06:50] LABS: BILIRUBIN,TOTAL 0.4 MG/DL (0.1-1.0)
[2021-07-11 06:52] LABS: CREATININE SERUM 1.49 MG/DL (0.60-1.30)
[2021-07-11] MEDS: PANTOPRAZOLE 40 MG (PROTONIX) TAB PO SCH (08:28)
[2021-07-11] MEDS: LACTOBACILLUS ACIDOPHILUS (PROBIOTIC) CAPSULE PO SCH (08:28)
[2021-07-11] MEDS: GABAPENTIN 300 MG (NEURONTIN) CAP PO SCH ×3 (08:28→20:39)
[2021-07-11] MEDS: FERROUS SULF 325 MG (IRON) TAB PO SCH ×2 (08:28→20:39)
[2021-07-11] MEDS: ASCORBIC ACID (VIT C) 500 MG TABLET PO SCH (08:28)
[2021-07-11] MEDS: NICOTINE 14 MG (NICODERM) PATCH TD SCH (08:28)
[2021-07-11] MEDS: COLESTIPOL 1 GM (COLESTID) TAB PO SCH ×2 (08:30→20:33)
--- NOTE | 2021-07-11 09:39 | Occupational Ther Daily Note ---
OT Current Status-Daily Note Subjective Pt in bed. Pt agreeable to OT tx. Mental Status/Objective Patient Orientation: Person, Place, Time, Situation ADL-Treatment Therapy Code Descriptions/Definitions Functional [place] Measure: 0=Not Assessed/NA 4=Minimal Assistance 1=Total Assistance 5=Supervision or Setup 2=Maximal Assistance 6=Modified [place] 3=Moderate Assistance 7=Complete IndependenceSCALE: Activities may be completed with or without assistive devices. 8-Rterpcikbf-skzpxwa completes the activity by him/herself with no assistance from a helper. 5-Set-up or Clean-up Assistance-helper sets up or cleans up; patient completes activity. [place] assists only prior to or following the activity. 4-Supervision or Touching Assistance-helper provides verbal cues and/or touching/steadying and/or contact guard assistance as patient completes activity. Assistance may be provided throughout the activity or intermittently. 3-Partial/Moderate Assistance-helper does LESS THAN HALF the effort. [place] lifts, holds or supports trunk or limbs, but provides less than half the effort. 2-Substantial/Maximal Assistance-helper does MORE THAN HALF the effort. [place] lifts or holds trunk or limbs and provides more than half the effort. 5-Jofjecvod-smtqsd does ALL the effort. Patient does none of the effort to complete the activity. Or, the assistance of 2 or more helpers is required for the patient to complete the activity. If activity was not attempted, code reason: 7-Patient Refused. 9-Not Applicable-not attempted and the patient did not perform the activity before the current illness, exacerbation or injury. 10-Not Attempted due to Environmental Limitations-(lack of equipment, weather restraints, etc.). 88-Not Attempted due to Medical Conditions or Safety Concerns. Oral Hygiene (QC): 5 (setup) Other Treatment Pt in bed. Pt sat in bed and completed oral hygiene, combed his hair and washed his face with a washcloth, setup needed. Pt declined transitioning to the recliner when asked, he stated he doesn't get to stay in bed very often and would like to continue to stay in bed at this time. Pt was educated on the importance of getting up and moving around with therapy, but still he still declined. Pt in bed, call light in reach and all needs met. Education OT Patient Education: Correct positioning, Energy conservation, Modified ADL techniques, Progress toward Goal/Update tx plan, Purpose of tx/functional activities Teaching Recipient: Patient Teaching Methods: Discussion Response to Teaching: Verbalize Understanding OT Photographer'S Model Goals Photographer'S Model Goals Time Frame: Jul 21, 2021 Eating (QC): 6 Oral Hygiene (QC): 6 Toileting Hygiene (QC): 6 Shower/Bathe Self (QC): 6 Upper Body Dressing (QC): 6 Lower Body Dressing (QC): 6 On/Off Footwear (QC): 6 Additional Goals: 1-Demonstrate ADL Tasks, 2-Verbalize Understanding, 3- ImproveStrength/Deshawn 1=Demonstrate adherence to instructed precautions during ADL tasks. 2=Patient will verbalize/demonstrate understanding of assistive devices/modifications for ADL. 3=Patient will improve strength/tolerance for activity to enable patient to perform ADL's. OT Education/Plan Problem List/Assessment Assessment: Decreased Activ Tolerance, Decreased UE Strength, Impaired Funct Balance, Impaired I ADL's, Impaired Self-Care Skills Discharge Recommendations Plan/Recommendations: Continue POC Treatment Plan/Plan of Care Patient would benefit from OT for education, treatment and training to promote independence in ADL's, mobility, safety and/or upper extremity function for ADL's. Plan of Care: ADL Retraining, Functional Mobility, UE Funct Exercise/Act Treatment Duration: Jul 21, 2021 Frequency: 3 times per week (3-5 times per week) Rehab Potential: Fair Time/GCodes Start Time: 08:41 Stop Time: 08:50 Total Time Billed (hr/min): 9 Billed Treatment Time 1, ADL (9) ROSEY BERMUDEZ OT Jul 11, 2021 09:39
--- NOTE | 2021-07-11 10:38 | Physical Therapy Daily Note ---
PT Daily Note-Current Subjective Patient presented sitting in his bed and agrees to participate in physical therapy. Mental Status Attachments: Oxygen, Valente Catheter Transfers SCALE: Activities may be completed with or without assistive devices. 4-Elbgnwsevq-upspdlv completes the activity by him/herself with no assistance from a helper. 5-Set-up or Clean-up Assistance-helper sets up or cleans up; patient completes activity. [place] assists only prior to or following the activity. 4-Supervision or Touching Assistance-helper provides verbal cues and/or touching/steadying and/or contact guard assistance as patient completes activity. Assistance may be provided throughout the activity or intermittently. 3-Partial/Moderate Assistance-helper does LESS THAN HALF the effort. [place] lifts, holds or supports trunk or limbs, but provides less than half the effort. 2-Substantial/Maximal Assistance-helper does MORE THAN HALF the effort. [place] lifts or holds trunk or limbs and provides more than half the effort. 6-Cuqwsamjx-zalewt does ALL the effort. Patient does none of the effort to complete the activity. Or, the assistance of 2 or more helpers is required for the patient to complete the activity. If activity was not attempted, code reason: 7-Patient Refused. 9-Not Applicable-not attempted and the patient did not perform the activity before the current illness, exacerbation or injury. 10-Not Attempted due to Environmental Limitations-(lack of equipment, weather restraints, etc.). 88-Not Attempted due to Medical Conditions or Safety Concerns. Lying to Sitting/Side of Bed(Q: 4 Sit to Stand (QC): 4 Chair/Qef-bm-Eaixt Xfer(QC): 4 Patient required SBA for all transfers Gait Training Does the Patient Walk?: Yes Distance: 250' Walk 10 feet (QC): 4 Walk 50 ft with 2 Turns(QC): 4 Walk 150 ft (QC): 4 Gait Assistive Device: FWW Patient ambulated with FWW and SBA. Patient did not wear O2 for ambulation and his O2 saturation was at 90% after ambulation. Assessment Patient ambulated for 250' with SBA and FWW. Patient O2 saturation was checked after ambulation and was at 90% but patient requested to put his O2 back on. Patient reported slight difficulty breathing while walking and blamed it on his mask. Patient left post tx in his chair with nurse call, phone, and all needs met. PT Chcf Goals Chcf Goals PT [facility] Goals Time Frame: Jul 22, 2021 Roll Left & Right (QC): 6 Sit to Lying (QC): 6 Lying-Sitting on Side/Bed(QC): 6 Sit to Stand (QC): 6 Chair/Rft-io-Yzsbg Xfer(QC): 6 Toilet Transfer (QC): 6 Does the Patient Walk: Yes Walk 10 feet (QC): 6 Walk 50ft with 2 Turns (QC): 6 Walk 150 ft (QC): 6 PT Plan Problem List Problem List: Activity Tolerance, Functional Strength, Safety, Balance, Gait, Transfer, Bed Mobility, ROM Treatment/Plan Treatment Plan: Continue Plan of Care Treatment Plan: Bed Mobility, Education, Functional Activity Deshawn, Functional Strength, Gait, Safety, Therapeutic Exercise, Transfers Treatment Duration: Jul 22, 2021 Frequency: 6 times per week Estimated Hrs Per Day: .25 hour per day Time/GCodes Time In: 935 Time Out: 950 Total Billed Treatment Time: 15 Total Billed Treatment 1 Visit Gait 15 min SUE CONTRERAS PT Jul 11, 2021 10:38
--- NOTE | 2021-07-11 11:52 | Progress Note - Hospitalist ---
ERIC LINN 07/11/21 1152: Subjective HPI/CC On Admission Date Seen by Provider: Jul 11, 2021 Time Seen by Provider: 09:30 Paul Mejía is a 66 year old male with PMH metastatic renal cell carcinoma to the lung s/p nephrectomy on chemotherapy, current smoker, COPD, who presented with neck and arm pain. He developed lethargy and was found to have acute hypercapnia. He was started on BiPAP. He continued to worsen and required intubation. He was extubated on 07/09/21. Has been improving since extubation. Subjective/Events-last exam Patient feeling better today. Feels his is regaining his energy and ability to breathe. Hoping to get walking with PT today. Asking about discharge planning. Review of Systems General: No Chills, No Night Sweats HEENT: No Head Aches, No Visual Changes, No Eye Pain Pulmonary: No Dyspnea, No Cough Cardiovascular: No: Chest Pain, Palpitations Gastrointestinal: No: Nausea, Vomiting, Abdominal Pain Genitourinary: No Dysuria, No Frequency Musculoskeletal: No: leg pain, foot pain Neurological: No: Weakness, Numbness Focused Exam Time of Focused Exam: :30 Respiratory: Chest Non Tender, Lungs Clear, Normal Breath Sounds, No Accessory Muscle Use, No Respiratory Distress Cardiovascular: Regular Rate, Rhythm, No Edema, No Gallop, No JVD, No Murmur, Normal Peripheral Pulses Capillary Refill: Less Than 3 Seconds Skin: normal color, warm/dry Objective Exam Vital Signs Vital Signs Date Time Temp Pulse Resp B/P (MAP) Pulse Ox O2 Delivery O2 Flow Rate FiO2 07/11/21 10:50 94 Nasal Cannula 2.00 07/11/21 08:03 37.1 80 22 141/53 07/09/21 08:35 30 Capillary Refill : Less Than 3 Seconds General Appearance: No Apparent Distress, WD/WN HEENT: PERRL/EOMI, Pharynx Normal Neck: Full Range of Motion, Normal Inspection, Non Tender, Supple Respiratory: Chest Non Tender, Lungs Clear, Normal Breath Sounds, No Accessory Muscle Use, No Respiratory Distress Cardiovascular: Regular Rate, Rhythm, No Edema, No Gallop, No JVD, No Murmur, Normal Peripheral Pulses Gastrointestinal: No Organomegaly, Non Tender, Soft Rectal: Deferred Back: Normal Inspection Extremity: Normal Capillary Refill, Normal Inspection, Normal Range of Motion, No Pedal Edema Neurologic/Psychiatric: Alert, Oriented x3, No Motor/Sensory Deficits, Normal Mood/Affect, 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 Imaging: Reviewed Imaging Report Diagnosis/Problems Diagnosis/Problems (1) RESPIRATORY FAILURE, UNSP, UNSP W HYPOXIA OR HYPERCAPNIA Onset Date: ~ 07/08/2021 Status: Acute Assessment & Plan: Extubated 07/09 Maintaining O2 sats via NC on 2L Solumedrol decreased to Q12 hrs DC roblero catheter PT/OT Possible DC tomorrow (2) PNA (pneumonia) Onset Date: ~ 07/08/2021 Status: Acute Assessment & Plan: Sputum Cx: Pseudomonas & H. influenzae Zosyn (D#4) DC Doxycycline Qualifiers: Qualified Codes: J15.1 - Pneumonia due to Pseudomonas (3) Acute kidney injury superimposed on chronic kidney disease Onset Date: ~ 07/08/2021 Status: Acute Assessment & Plan: Cr 2.73 on admission Cr 1.49 today Resolving Hep-Lock IVF (4) 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 Assessment & Plan: s/p left nephrectomy (5) T2DM (type 2 diabetes mellitus) Status: Chronic Assessment & Plan: Sliding scale insulin Qualifiers: Qualified Codes: E11.65 - Type 2 diabetes mellitus with hyperglycemia; Z79.4 - halfway (current) use of insulin (6) Tobacco use Status: Chronic Assessment & Plan: Nicotine patch Clinical Quality Measures Smoking Cessation Counseling: Counseling-Symptomatic: 3-10 Minutes Discussed Options Including: Nicotine Patch DANIELLE COYLE DO 07/12/21 0543: Subjective Subjective/Events-last exam Pt doing a lot better White count was 15.6 Decreasing steroids to 40 mg IV Q12 hours In-patient rehab will be evaluating him Review of Systems General: Fatigue, Malaise Pulmonary: Dyspnea Objective Exam General Appearance: No Apparent Distress, WD/WN, Chronically ill, Thin Respiratory: Lungs Clear, Normal Breath Sounds, Decreased Breath Sounds Cardiovascular: Regular Rate, Rhythm Neurologic/Psychiatric: Alert, Oriented x3, No Motor/Sensory Deficits, Normal Mood/Affect Assessment/Plan Assessment and Plan Assess & Plan/Chief Complaint PT and OT Supportive care Decrease steroids Supervisory-Addendum Brief Verification & Attestation Participated in pt care: history, MDM, physical Personally performed: exam, history, MDM, supervision of care Care discussed with: Medical Student Procedures: n/a Results interpretation: Verified all documentation Verification and Attestation of Medical Student E/M Service A medical student performed and documented this service in my presence. I reviewed and verified all information documented by the medical student and made modifications to such information, when appropriate. I personally performed the physical exam and medical decision making. Danielle Coyle, Jul 12, 2021,05:43 ERIC LINN Jul 11, 2021 11:52 DANIELLE COYLE DO Jul 12, 2021 05:43
[2021-07-12] MEDS: RT-ALBUTEROL/IPRATROPIUM 3 ML (DUONEB) VIAL INH SCH ×2 (02:40→06:47)
[2021-07-12] MEDS: PIPERACILLIN SODIUM/TAZOBACTAM 4.5 GM in NS (IVPB) 100 ML IV SCH ×2 (04:26→11:40)
[2021-07-12 05:56] LABS: BASOPHILS # (AUTO) 0.1 10^3/uL (0.0-0.1); BASOPHILS % (AUTO) 0 % (0-10); EOSINOPHILS % (AUTO) 0 % (0-10); HEMATOCRIT 33 % (40-54); HEMOGLOBIN 10.7 g/dL (13.3-17.7); LYMPHOCYTES % (AUTO) 5 % (12-44); MEAN CORPUSCULAR HEMOGLOBIN 30 pg (25-34); MEAN CORPUSCULAR HGB CONC 32 g/dL (32-36); MEAN CORPUSCULAR VOLUME 94 fL (80-99); MEAN PLATELET VOLUME 9.8 fL (9.0-12.2); MONOCYTES # (AUTO) 0.8 10^3/uL (0.0-1.0); MONOCYTES % (AUTO) 5 % (0-12); NEUTROPHILS # (AUTO) 15.3 10^3/uL (1.8-7.8); NEUTROPHILS % (AUTO) 86 % (42-75); PLATELET COUNT 237 10^3/uL (130-400); WHITE BLOOD COUNT 17.8 10^3/uL (4.3-11.0)
[2021-07-12] MEDS: inSUlin ASPART (NovoLOG) 1 UNIT/0.01 ML (CHARGE PER UNIT) SC SCH ×3 (05:56→17:56)
[2021-07-12 06:08] LABS: ALBUMIN 2.8 GM/DL (3.2-4.5); POTASSIUM 5.7 MMOL/L (3.6-5.0)
[2021-07-12 06:10] LABS: CALCIUM 8.3 MG/DL (8.5-10.1)
[2021-07-12 06:11] LABS: TOTAL PROTEIN 5.4 GM/DL (6.4-8.2)
[2021-07-12 06:13] LABS: BILIRUBIN,TOTAL 0.3 MG/DL (0.1-1.0)
[2021-07-12 06:14] LABS: CREATININE SERUM 1.47 MG/DL (0.60-1.30)
[2021-07-12] MEDS: NICOTINE 14 MG (NICODERM) PATCH TD SCH (08:53)
[2021-07-12] MEDS: LACTOBACILLUS ACIDOPHILUS (PROBIOTIC) CAPSULE PO SCH (08:53)
[2021-07-12] MEDS: GABAPENTIN 300 MG (NEURONTIN) CAP PO SCH ×2 (08:53→12:39)
[2021-07-12] MEDS: FERROUS SULF 325 MG (IRON) TAB PO SCH (08:53)
[2021-07-12] MEDS: methylPREDNISolone 40 MG/ML (Solu-MEDROL) VIAL IV SCH (08:53)
[2021-07-12] MEDS: ASCORBIC ACID (VIT C) 500 MG TABLET PO SCH (08:53)
[2021-07-12] MEDS: PANTOPRAZOLE 40 MG (PROTONIX) TAB PO SCH (08:53)
[2021-07-12] MEDS: COLESTIPOL 1 GM (COLESTID) TAB PO SCH (09:01)
[2021-07-12 09:43] VITALS: BP 145/65
--- NOTE | 2021-07-12 09:52 | Physical Therapy Daily Note ---
PT Daily Note-Current Subjective Patient presented sitting up in bed and agreed to walk with PT. Patient reports that he is feeling better today than yesterday. Mental Status Patient Orientation: Person, Place, Time, Situation Attachments: Oxygen (2L NC) Transfers SCALE: Activities may be completed with or without assistive devices. 4-Ptmuxoqvon-kjcoyyk completes the activity by him/herself with no assistance from a helper. 5-Set-up or Clean-up Assistance-helper sets up or cleans up; patient completes activity. Shelby assists only prior to or following the activity. 4-Supervision or Touching Assistance-helper provides verbal cues and/or touching/steadying and/or contact guard assistance as patient completes activity. Assistance may be provided throughout the activity or intermittently. 3-Partial/Moderate Assistance-helper does LESS THAN HALF the effort. Shelby lifts, holds or supports trunk or limbs, but provides less than half the effort. 2-Substantial/Maximal Assistance-helper does MORE THAN HALF the effort. Shelby lifts or holds trunk or limbs and provides more than half the effort. 9-Dbcbfxqln-wreuxp does ALL the effort. Patient does none of the effort to complete the activity. Or, the assistance of 2 or more helpers is required for the patient to complete the activity. If activity was not attempted, code reason: 7-Patient Refused. 9-Not Applicable-not attempted and the patient did not perform the activity before the current illness, exacerbation or injury. 10-Not Attempted due to Environmental Limitations-(lack of equipment, weather restraints, etc.). 88-Not Attempted due to Medical Conditions or Safety Concerns. Lying to Sitting/Side of Bed(Q: 6 Sit to Stand (QC): 6 Chair/Vza-nj-Epglf Xfer(QC): 4 Toilet Transfer (QC): 6 Patient was independent for bed mobility but required SBA for transfer to the chair. Gait Training Does the Patient Walk?: Yes Distance: 500' Walk 10 feet (QC): 4 Walk 50 ft with 2 Turns(QC): 4 Walk 150 ft (QC): 4 Gait Assistive Device: FWW Patient ambulated with SBA for 500'. Patient reported no SOA or fatigue while ambulating. Assessment Current Status: Fair Progress Patient performed bed mobility and ambulation with therapy today. Patient reported minimal fatigue and no SOA during ambulation today. Patient required SBA for ambulation of 500' today. Patient reported he could have walked further but he had to stop to use the bathroom. PT Custodial Goals Custodial Goals PT Custodial Goals Time Frame: Jul 22, 2021 Roll Left & Right (QC): 6 Sit to Lying (QC): 6 Lying-Sitting on Side/Bed(QC): 6 Sit to Stand (QC): 6 Chair/Kuw-eu-Opiup Xfer(QC): 6 Toilet Transfer (QC): 6 Does the Patient Walk: Yes Walk 10 feet (QC): 6 Walk 50ft with 2 Turns (QC): 6 Walk 150 ft (QC): 6 PT Plan Problem List Problem List: Activity Tolerance, Functional Strength, Safety, Balance, Gait, Transfer, ROM Treatment/Plan Treatment Plan: Continue Plan of Care Treatment Plan: Bed Mobility, Education, Functional Activity Deshawn, Functional Strength, Gait, Safety, Therapeutic Exercise, Transfers Treatment Duration: Jul 22, 2021 Frequency: 6 times per week Estimated Hrs Per Day: .25 hour per day Safety Risks/Education Patient Education: Gait Training, Transfer Techniques, Correct Positioning, Safety Issues Teaching Recipient: Patient Teaching Methods: Discussion Response to Teaching: Reinforcement Needed Time/GCodes Time In: 910 Time Out: 922 Total Billed Treatment Time: 12 Total Billed Treatment 1 Visit Viviane 12 min JHONATAN THOMPSON PT Jul 12, 2021 09:52
--- NOTE | 2021-07-12 09:58 | Physical Therapy Daily Note ---
PT Daily Note-Current Subjective Patient in bed pre tx, agrees reluctantly to PT, has 6/10 pain in her bottom. Patient had debridement of her decubitus ulcer yesterday and now has a wound vac. Appearance Patient in bed post tx with nurse call, phone, heel protectors on, nursing in room. Mental Status Patient Orientation: Person, Place, Situation Attachments: Valente Catheter Transfers SCALE: Activities may be completed with or without assistive devices. 5-Kfunvlmjri-nyffyuv completes the activity by him/herself with no assistance from a helper. 5-Set-up or Clean-up Assistance-helper sets up or cleans up; patient completes activity. Hughson assists only prior to or following the activity. 4-Supervision or Touching Assistance-helper provides verbal cues and/or touching/steadying and/or contact guard assistance as patient completes activity. Assistance may be provided throughout the activity or intermittently. 3-Partial/Moderate Assistance-helper does LESS THAN HALF the effort. Hughson lifts, holds or supports trunk or limbs, but provides less than half the effort. 2-Substantial/Maximal Assistance-helper does MORE THAN HALF the effort. Hughson lifts or holds trunk or limbs and provides more than half the effort. 3-Upesduiij-kmyvad does ALL the effort. Patient does none of the effort to complete the activity. Or, the assistance of 2 or more helpers is required for the patient to complete the activity. If activity was not attempted, code reason: 7-Patient Refused. 9-Not Applicable-not attempted and the patient did not perform the activity before the current illness, exacerbation or injury. 10-Not Attempted due to Environmental Limitations-(lack of equipment, weather restraints, etc.). 88-Not Attempted due to Medical Conditions or Safety Concerns. Roll Left & Right (QC): 1 After pulling back the sheets it is discovered that patient has a pool of BM between her legs that is later discovered that it is not BM but blood, nurse is in room and sees this. Patient is rolled from side to side for cleaning and changing sheet, it requires 4 people to roll her. Patient resists movement, she wont even assist with slightly her legs in order to clean there, she resists and keeps them together tightly, even with knowledge of what we are doing and cues to separate them. Treatments rolling, assist with cleaning Assessment Current Status: Poor Progress Patient is at the same level of mobility she was at before the debridement. senior care goals will remain the same for now. Patient is dependent for all mobility. PT Senior Database Programmer Goals Senior Database Programmer Goals PT Senior Database Programmer Goals Time Frame: Jul 22, 2021 Roll Left & Right (QC): 6 Sit to Lying (QC): 6 Lying-Sitting on Side/Bed(QC): 6 Sit to Stand (QC): 6 Chair/Deb-tt-Pxesz Xfer(QC): 6 Toilet Transfer (QC): 6 Does the Patient Walk: Yes Walk 10 feet (QC): 6 Walk 50ft with 2 Turns (QC): 6 Walk 150 ft (QC): 6 PT Plan Problem List Problem List: Activity Tolerance, Functional Strength, Safety, Balance, Gait, Transfer, Bed Mobility, ROM Treatment/Plan Treatment Plan: Continue Plan of Care Treatment Plan: Bed Mobility, Education, Functional Activity Deshawn, Functional Strength, Gait, Safety, Therapeutic Exercise, Transfers Treatment Duration: Jul 22, 2021 Frequency: 6 times per week Estimated Hrs Per Day: .25 hour per day Safety Risks/Education Patient Education: Correct Positioning, Safety Issues Teaching Recipient: Patient Teaching Methods: Demonstration, Discussion Response to Teaching: Reinforcement Needed Time/GCodes Time In: 924 JHONATAN THOMPSON PT Jul 12, 2021 09:58
--- NOTE | 2021-07-12 10:47 | Occupational Ther Daily Note ---
OT Current Status-Daily Note Subjective Pt in recliner. Pt agreeable to OT tx. Mental Status/Objective Patient Orientation: Person, Place, Time, Situation Attachments: Oxygen (O2 saturation 2) ADL-Treatment Therapy Code Descriptions/Definitions Functional [place] Measure: 0=Not Assessed/NA 4=Minimal Assistance 1=Total Assistance 5=Supervision or Setup 2=Maximal Assistance 6=Modified [place] 3=Moderate Assistance 7=Complete IndependenceSCALE: Activities may be completed with or without assistive devices. 1-Rwqjwnhrhh-kxkfins completes the activity by him/herself with no assistance from a helper. 5-Set-up or Clean-up Assistance-helper sets up or cleans up; patient completes activity. Adams assists only prior to or following the activity. 4-Supervision or Touching Assistance-helper provides verbal cues and/or touching/steadying and/or contact guard assistance as patient completes activity. Assistance may be provided throughout the activity or intermittently. 3-Partial/Moderate Assistance-helper does LESS THAN HALF the effort. Adams lifts, holds or supports trunk or limbs, but provides less than half the effort. 2-Substantial/Maximal Assistance-helper does MORE THAN HALF the effort. Adams lifts or holds trunk or limbs and provides more than half the effort. 2-Fedqirqoo-xzogwd does ALL the effort. Patient does none of the effort to complete the activity. Or, the assistance of 2 or more helpers is required for the patient to complete the activity. If activity was not attempted, code reason: 7-Patient Refused. 9-Not Applicable-not attempted and the patient did not perform the activity before the current illness, exacerbation or injury. 10-Not Attempted due to Environmental Limitations-(lack of equipment, weather restraints, etc.). 88-Not Attempted due to Medical Conditions or Safety Concerns. Oral Hygiene (QC): 4 (SBA at sink) Upper Body Dressing (QC): 5 (setup) Other Treatment Pt in recliner. Pt completes x10 reps of the following BUE exercises to work on arm strengthening: shoulder flexion, elbow flexion/extension, front punches, wrist flexion/extension and finger flexion/extension. Pt transitioned to FWW, SBA, completed functional mobility to bathroom and completed oral hygiene and washed his face standing at sink. Pt completed functional mobility back to recliner, FWW, SBA, he cleaned his glasses, doffed hospital gown then donned new hospital gown with setup. Pt in recliner, call light in reach, oxygen on and all needs met. Education OT Patient Education: Correct positioning, Energy conservation, Exercise program, Modified ADL techniques, Progress toward Goal/Update tx plan, Purpose of tx/functional activities Teaching Recipient: Patient Teaching Methods: Demonstration, Discussion Response to Teaching: Verbalize Understanding, Return Demonstration OT Armed Custom Protection Officer Goals Armed Custom Protection Officer Goals Time Frame: Jul 21, 2021 Eating (QC): 6 Oral Hygiene (QC): 6 Toileting Hygiene (QC): 6 Shower/Bathe Self (QC): 6 Upper Body Dressing (QC): 6 Lower Body Dressing (QC): 6 On/Off Footwear (QC): 6 Additional Goals: 1-Demonstrate ADL Tasks, 2-Verbalize Understanding, 3- ImproveStrength/Deshawn 1=Demonstrate adherence to instructed precautions during ADL tasks. 2=Patient will verbalize/demonstrate understanding of assistive devices/modifications for ADL. 3=Patient will improve strength/tolerance for activity to enable patient to perform ADL's. OT Education/Plan Problem List/Assessment Assessment: Decreased Activ Tolerance, Decreased UE Strength, Impaired Funct Balance, Impaired I ADL's, Impaired Self-Care Skills Discharge Recommendations Plan/Recommendations: Continue POC Treatment Plan/Plan of Care Patient would benefit from OT for education, treatment and training to promote independence in ADL's, mobility, safety and/or upper extremity function for ADL's. Plan of Care: ADL Retraining, Functional Mobility, UE Funct Exercise/Act Treatment Duration: Jul 21, 2021 Frequency: 3 times per week (3-5 times per week) Rehab Potential: Fair Time/GCodes Start Time: 10:15 Stop Time: 10:31 Total Time Billed (hr/min): 16 Billed Treatment Time 1, ADL (16) ROSEY BERMUDEZ OT Jul 12, 2021 10:47
[2021-07-12] MEDS ORDERED: PRED10TA22 PO (11:23)
[2021-07-12] MEDS ORDERED: ACHD5005 PO (11:23)
[2021-07-12] MEDS ORDERED: AMOX-358 PO (11:23)
[2021-07-12] MEDS ORDERED: PANT40TA52 PO (11:23)
[2021-07-12] MEDS ORDERED: INSU100I29 SC (11:23)
[2021-07-12] MEDS ORDERED: INSU100I14 SQ (11:23)
[2021-07-12] MEDS ORDERED: IPRA3AMP31 INH (11:23)
--- NOTE | 2021-07-12 11:25 | Discharge Summary ---
Discharge Summary Hospital Course Was the Problem List Reviewed?: Yes Problems/Dx: (1) RESPIRATORY FAILURE, UNSP, UNSP W HYPOXIA OR HYPERCAPNIA Status: Acute (2) PNA (pneumonia) Status: Acute Qualifiers: Qualified Codes: J15.1 - Pneumonia due to Pseudomonas (3) Acute kidney injury superimposed on chronic kidney disease Status: Acute (4) 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 (5) T2DM (type 2 diabetes mellitus) Status: Chronic Qualifiers: Qualified Codes: E11.65 - Type 2 diabetes mellitus with hyperglycemia; Z79.4 - intermediate designer (current) use of insulin (6) Tobacco use Status: Chronic Hospital Course Date of Admission: Jul 07, 2021 at 18:20 Admission Diagnosis : Family Physician/Provider: Sha Clayton MD Date of Discharge: 07/12/21 Discharge Diagnosis: Respiratory failure, status post intubation, exacerbation of COPD, smoker, pneumonia, metastatic renal cell carcinoma Hospital Course: HOSPITAL COURSE: Paul Mejía is a 66 year old male with PMH metastatic renal cell carcinoma to the lung s/p nephrectomy on chemotherapy, current smoker, COPD, who presented with neck and arm pain on 07/07/21. He developed lethargy and was found to have acute hypercapnia. He was started on BiPAP. He continued to worsen and required intubation on 07/07/21. Patient was found to have COPD exacerbation with PNA. He was treated with IV steroids and 5 days of Zosyn. He was intubated in the ICU from 07/07/21 - 07/09/21. Additionally, he was noted to have MARÍA on CKD with a creatinine at 2.7 which improved with IVF to a baseline of ~1.4. Following extubation, patient was transferred to med/surg floor where he continued to require 2-3L of oxygen via NC. He will discharge on 2L NC, complete 3 days of Augmentin 875mg BID, TID nebulized breathing treatments, prednisone taper, hold metformin, and follow-up with PCP in 2 days. ERIC LINN Labs and Pending Lab Test: Laboratory Tests 07/11/21 16:24: Glucometer 320H 07/11/21 19:52: Glucometer 268H 07/12/21 05:49: Glucometer 296H 07/12/21 05:50: White Blood Count 17.8H, Red Blood Count 3.56L, Hemoglobin 10.7L, Hematocrit 33L , Mean Corpuscular Volume 94, Mean Corpuscular Hemoglobin 30, Mean Corpuscular Hemoglobin Concent 32, Red Cell Distribution Width 14.2, Platelet Count 237, Mean Platelet Volume 9.8, Immature Granulocyte % (Auto) 4, Neutrophils (%) (Auto) 86H, Lymphocytes (%) (Auto) 5L, Monocytes (%) (Auto) 5, Eosinophils (%) (Auto) 0, Basophils (%) (Auto) 0, Neutrophils # (Auto) 15.3H, Lymphocytes # (Auto) 1.0, Monocytes # (Auto) 0.8, Eosinophils # (Auto) 0.0, Basophils # (Auto) 0.1, Immature Granulocyte # (Auto) 0.7H, Sodium Level 136, Potassium Level 5.7H, Chloride Level 106, Carbon Dioxide Level 21, Anion Gap 9, Blood Urea Nitrogen 38H, Creatinine 1.47H, Estimat Glomerular Filtration Rate 52, BUN/Creatinine Ratio 26, Glucose Level 306H, Calcium Level 8.3L, Corrected Calcium 9.3, Total Bilirubin 0.3, Aspartate Amino Transf (AST/SGOT) 30, Alanine Aminotransferase (ALT/SGPT) 37, Alkaline Phosphatase 51, Total Protein 5.4L, Albumin 2.8L 07/12/21 10:41: Glucometer 276H Microbiology 07/08/21 Gram Stain - Final, Complete 07/08/21 Sputum Culture - Final, Complete Pseudomonas aeruginosa Haemophilus influenza See Comments 07/07/21 Blood Culture - Preliminary, Resulted No growth Home Meds Active Novolog Flexpen (Insulin Aspart) 300 Units/3 Ml Solution 8 Units SQ AC Prednisone 10 Mg Tab.ds.pk 10 Mg PO DAILY Take 6 tabs(60mg)daily,decrease by 1 tab(10MG)daily. Pantoprazole Sodium 40 Mg Tablet.dr 40 Mg PO DAILY HYDROcodone/APAP 5 MG/325 MG TAB (Acetaminophen/Hydrocodone Bitart) 1 Tab Tab 1 Ea PO Q4HR PRN Iprat-Albut 0.5-3(2.5) mg/3 ml (Ipratropium/Albuterol Sulfate) 3 Ml Ampul.neb 3 Ml INH TID Augmentin 875-125 Tablet (Amoxicillin/Potassium Clav) 1 Each Tablet 1 Each PO BID Levemir Flextouch (Insulin Detemir) 100 Unit/1 Ml Insuln.pen 20 Units SC BID 7 Days Reported Tylenol Extra Strength (Acetaminophen) 500 Mg Tablet 1,000 Mg PO Q8H PRN Flonase Allergy Relief (Fluticasone Propionate) 9.9 Ml [place].susp 1-2 [place] NSEACH DAILY PRN Proair Hfa (Albuterol Sulfate) 1 Puff Puff 2 Puff IH Q4H PRN Breo Ellipta 200-25 Mcg INH (Fluticasone/Vilanterol) 1 Each Blst.w.dev 1 Each IH DAILY Neurontin (Gabapentin) 300 Mg Capsule 300 Mg PO TID Vitamin D3 (Cholecalciferol (Vitamin D3)) 25 Mcg Capsule 25 Mcg PO DAILY Ferosul (Ferrous Sulfate) 325 Mg Tablet 325 Mg PO BID Colestipol HCl 1 Gm Tablet 2 Gm PO BID TAKES 2 (1GM) TABLET Metformin HCl 500 Mg Tablet 500 Mg PO BID Glimepiride 4 Mg Tablet 4 Mg PO BID Lisinopril 20 Mg Tablet 20 Mg PO DAILY Vitamin C (Ascorbic Acid) 500 Mg Tablet 500 Mg PO DAILY Lutein 20 Mg Tablet 40 Mg PO BID Assessment/Pt Instructions Dr. Espinosa and Dr. Clayton as scheduled Discharge Planning: <30 minutes discharge planning Discharge Physical Examination Vital Signs Vital Signs Date Time Temp Pulse Resp B/P (MAP) Pulse Ox O2 Delivery O2 Flow Rate FiO2 07/12/21 09:43 36.0 76 96 28 07/12/21 08:00 20 145/65 Nasal Cannula 2.00 General Appearance: No Apparent Distress, WD/WN, Chronically ill Allergies: Coded Allergies: meperidine (Verified Allergy, Mild, RASH, Pt has received Fentanyl w/o issue, 12/15/18) Discharge Summary Date of Admission Jul 07, 2021 at 18:20 Date of Discharge Discharge Date: Jul 12, 2021 Admission Diagnosis Acute respiratory failure with hypoxia and hypercapnia Discharge Diagnosis PT and OT Supportive care Decrease steroids (1) RESPIRATORY FAILURE, UNSP, UNSP W HYPOXIA OR HYPERCAPNIA Onset Date: ~ 07/08/2021 Status: Acute Assessment & Plan: Extubated 07/09 Maintaining O2 sats via NC on 2L Solumedrol decreased to Q12 hrs DC roblero catheter PT/OT Possible DC tomorrow (2) PNA (pneumonia) Onset Date: ~ 07/08/2021 Status: Acute Assessment & Plan: Sputum Cx: Pseudomonas & H. influenzae Zosyn (D#4) DC Doxycycline Qualifiers: Qualified Codes: J15.1 - Pneumonia due to Pseudomonas (3) Acute kidney injury superimposed on chronic kidney disease Onset Date: ~ 07/08/2021 Status: Acute Assessment & Plan: Cr 2.73 on admission Cr 1.49 today Resolving Hep-Lock IVF (4) 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 Assessment & Plan: s/p left nephrectomy (5) T2DM (type 2 diabetes mellitus) Status: Chronic Assessment & Plan: Sliding scale insulin Qualifiers: Qualified Codes: E11.65 - Type 2 diabetes mellitus with hyperglycemia; Z79.4 - care home (current) use of insulin (6) Tobacco use Status: Chronic Assessment & Plan: Nicotine patch Clinical Quality Measures Smoking Cessation Counseling: Counseling-Symptomatic: 3-10 Minutes Discussed Options Including: Nicotine Patch FARHAN COYLE DO Jul 12, 2021 11:25
--- NOTE | 2021-07-12 11:55 | Progress Note ---
ERIC LINN 07/12/21 1155: Progress Note HOSPITAL COURSE: Paul Mejía is a 66 year old male with PMH metastatic renal cell carcinoma to the lung s/p nephrectomy on chemotherapy, current smoker, COPD, who presented with neck and arm pain on 07/07/21. He developed lethargy and was found to have acute hypercapnia. He was started on BiPAP. He continued to worsen and required intubation on 07/07/21. Patient was found to have COPD exacerbation with PNA. He was treated with IV steroids and 5 days of Zosyn. He was intubated in the ICU from 07/07/21 - 07/09/21. Additionally, he was noted to have MARÍA on CKD with a creatinine at 2.7 which improved with IVF to a baseline of ~1.4. Following extubation, patient was transferred to med/surg floor where he continued to require 2-3L of oxygen via NC. He will discharge on 2L NC, complete 3 days of Augmentin 875mg BID, TID nebulized breathing treatments, prednisone taper, hold metformin, and follow-up with PCP in 2 days. DANIELLE TIRADO DO 07/13/21 0519: Supervisory-Addendum Brief Verification & Attestation Participated in pt care: history, MDM, physical Personally performed: exam, history, MDM, supervision of care Care discussed with: Medical Student Procedures: n/a Results interpretation: Verified all documentation Verification and Attestation of Medical Student E/M Service A medical student performed and documented this service in my presence. I reviewed and verified all information documented by the medical student and made modifications to such information, when appropriate. I personally performed the physical exam and medical decision making. Danielle Tirado Jul 13, 2021,05:19 ERIC LINN Jul 12, 2021 11:55 DANIELLE TIRADO DO Jul 13, 2021 05:19
[2021-07-12] MEDS ORDERED: RT-ALBUTEROL/IPRATROPIUM 3 ML (DUONEB) VIAL INH SCH (15:00)
[2021-07-12 15:34] VITALS: BP 148/70
[2021-07-12 19:05] VITALS: BP 133/63
[2021-07-13] MEDS ORDERED: predniSONE 20 MG TAB PO SCH (07:00)
== END 2021-07-12 19:05 | disposition home or self-care (01) | DRG 208 ==
LOC: EDUNIT# 17:02 → ER 17:03 → ICU 18:20 → 4TH 07-10 20:17
PROVIDERS: ADMIT Internal Medicine; ATTEND Internal Medicine
PROC: 5A1945Z Respiratory Ventilation, 24-96 Consecutive Hours (ICD-10-PCS; principal; 2021-07-07)
PROC: 0BH17EZ Insertion of Endotracheal Airway into Trachea, Via Natural or Artificial Opening (ICD-10-PCS; 2021-07-07)
PROC: 5A09357 Assistance with Respiratory Ventilation, Less than 24 Consecutive Hours, Continuous Positive Airway Pressure (ICD-10-PCS; 2021-07-07)
DX: J96.21 Acute and chronic respiratory failure with hypoxia (principal); J18.9 Pneumonia, unspecified organism; J44.1 Chronic obstructive pulmonary disease with (acute) exacerbation; C78.00 Secondary malignant neoplasm of unspecified lung; N17.9 Acute kidney failure, unspecified; J44.0 Chronic obstructive pulmonary disease with (acute) lower respiratory infection; J96.22 Acute and chronic respiratory failure with hypercapnia; Z85.528 Personal history of other malignant neoplasm of kidney; Z90.5 Acquired absence of kidney; Z79.4 Long term (current) use of insulin; Z79.899 Other long term (current) drug therapy; M19.90 Unspecified osteoarthritis, unspecified site; G89.29 Other chronic pain; M54.9 Dorsalgia, unspecified; Z92.21 Personal history of antineoplastic chemotherapy; F17.210 Nicotine dependence, cigarettes, uncomplicated; N18.9 Chronic kidney disease, unspecified; E11.22 Type 2 diabetes mellitus with diabetic chronic kidney disease; I12.9 Hypertensive chronic kidney disease with stage 1 through stage 4 chronic kidney disease, or unspecified chronic kidney disease; Z20.822 Contact with and (suspected) exposure to COVID-19
CPT/HCPCS: 36415; 36600; 71045; 80053; 82805; 82947; 83605; 83735; 83880; 84100; 84132; 84145; 84478; 85007; 85025; 85027; 85610; 87040; 87070; 87077; 87081; 87186; 87205; 87636; 93005; 94002; 94003; 94640; 94660; 94760; 94761; 94799; 96365; 96375; 99291

== ENCOUNTER → 2021-07-27 | Outpatient (CLI) | payer BC, MEDICARE ==
[~2021-07-27] MED LIST changes: +ACET-2267 PO; +AMOX-358 PO; +CHOL100048 PO; +FLUT1BLS IH; +FLUT9.9S NSEACH; +GABA300C PO; +INSU100I14 SQ; +IPRA3AMP31 INH; +PANT40TA52 PO; +PRED10TA22 PO; +RT-ALBUINH IH
--- NOTE | 2021-07-27 13:49 | Diagnostic Imaging Report ---
HISTORY: Enlarged lymph nodes. COMPARISON: CT from 11/02/2016. TECHNIQUE: Thyroid ultrasound was performed. In addition, soft tissues of the neck are evaluated bilaterally. FINDINGS: The right thyroid lobe measures 5.1 x 2.4 x 2.2 cm in size. Background echotexture is homogeneous, and vascularity appears normal. No discrete nodule is seen. The isthmus measures 3 mm in thickness and appears normal. The left thyroid lobe measures 5.5 x 2.6 x 2.0 cm in size. Echotexture is homogeneous and normal. Vascularity appears normal. There is an ill-defined isoechoic solid nodule which measures 1.2 x 1.1 x 0.9 cm in size in the mid left thyroid. No calcification is seen. In the right neck, multiple lymph nodes are noted. The largest measures up to 5 mm in the short axis and has a normal fatty hilum. In the left neck, there are multiple prominent lymph nodes. The largest measures up to 8 mm in the short axis and has a normal fatty hilum. IMPRESSION: 1. TI-RADS 4 nodule in the left thyroid, qualifies for follow-up in one year. 2. Prominent lymph nodes in the soft tissues of the neck bilaterally, appear symmetric, and the fatty asael are preserved. These may be reactive. Dictated by: Dictated on workstation # [id number]
== END ==
LOC: RAD 12:30
PROVIDERS: ATTEND Nurse Practitioner Family
DX: E04.1 Nontoxic single thyroid nodule (principal); R59.9 Enlarged lymph nodes, unspecified
CPT/HCPCS: 76536

== ENCOUNTER → 2021-07-31 | Outpatient (RCR) | payer BC, OTHER ==
[~2021-07-31] MED LIST changes: +NIVOLUMAB 480 MG in NS (IVPB) CANCER CENTER 100 ML IV SCH; +NS (IVPB) CANCER CENTER 250 ML IV SCH; +NS IV 1000 ML (CANCER CTR) IV SCH; +NS IV 500 ML (CANCER CENTER) 500 ML IV SCH
== END | disposition home or self-care (01) ==
LOC: ONC 07-27 12:54
PROVIDERS: ATTEND Internal Medicine Hematology & Oncology
DX: C64.2 Malignant neoplasm of left kidney, except renal pelvis (principal); C78.01 Secondary malignant neoplasm of right lung; E11.22 Type 2 diabetes mellitus with diabetic chronic kidney disease; I12.9 Hypertensive chronic kidney disease with stage 1 through stage 4 chronic kidney disease, or unspecified chronic kidney disease; N18.30 Chronic kidney disease, stage 3 unspecified; D63.1 Anemia in chronic kidney disease; H10.9 Unspecified conjunctivitis; Z79.4 Long term (current) use of insulin; Z90.5 Acquired absence of kidney
CPT/HCPCS: 82274; 99213

== ENCOUNTER → 2021-08-04 | Outpatient (CLI) | payer BC, MEDICARE ==
[~2021-08-04] MED LIST changes: -NIVOLUMAB 480 MG in NS (IVPB) CANCER CENTER 100 ML IV SCH; -NS (IVPB) CANCER CENTER 250 ML IV SCH; -NS IV 1000 ML (CANCER CTR) IV SCH; -NS IV 500 ML (CANCER CENTER) 500 ML IV SCH
--- NOTE | 2021-08-04 14:37 | Diagnostic Imaging Report ---
CLINICAL INDICATION: Followup abnormal ultrasound lymph nodes. Patient has cancer and on chemotherapy. No surgeries. EXAM: Axial CT scan of the neck soft tissues performed without IV contrast with sagittal and coronal reformatted images. Auto Exposure Controls were utilized during the CT exam to meet ALARA standards for radiation dose reduction. COMPARISON: Ultrasound of the neck soft tissues dated 07/27/2021. FINDINGS: The nasopharynx, hypopharynx, and supraglottic larynx are unremarkable. There is mild prominence of the soft tissue in the expected regions of the bilateral palatine tonsils. There is no measurable mass. Dental streak hardware artifact limits evaluation of the oral cavity, tongue, and oropharynx region. Otherwise, the visualized portions of the oral cavity and tongue as well as the sublingual and submandibular regions show no significant abnormality. There are multiple punctate calcifications involving the tail of the right parotid gland. Otherwise, the salivary glands are unremarkable. The thyroid gland is unremarkable. There are multiple small lymph nodes involving both sides of the neck. The largest is in the right level 2A region measuring 10 mm x 10 mm and the largest on the left side is in the left level 2A region measuring 7 mm x 11 mm. Emphysematous lung disease is seen. There are cervical spine vertebral body spurs and facet arthropathy. There is grade 1 anterolisthesis of C2 on C3 and C4 on C5. There is mild mucosal thickening involving the ethmoid sinus. The mastoid air cells are clear. Limited visualization of the intracranial structures is unremarkable. There is left curvature of the cervicothoracic spine. IMPRESSION: 1: There is no measurable neck mass, fluid collection, or significant lymphadenopathy. There are multiple small lymph nodes involving both sides of the neck which are not significantly enlarged. 2: There is no specific soft tissue prominence involving the oropharynx. This may be from post treatment changes or oropharyngitis. Clinical correlation would better evaluate. 3: There are multiple focal nonobstructive stones involving the tail of the right parotid gland. 4: Emphysematous lung disease. Dictated by: Dictated on workstation # [id number]
== END ==
LOC: RAD 14:15
PROVIDERS: ATTEND Nurse Practitioner Family
DX: J43.9 Emphysema, unspecified (principal); K11.5 Sialolithiasis; R59.0 Localized enlarged lymph nodes
CPT/HCPCS: 70490

== ENCOUNTER 2021-08-10 15:11 | Outpatient (RCR) | payer BC, OTHER ==
[~2021-08-10 15:11] MED LIST changes: +NIVOLUMAB 480 MG in NS (IVPB) CANCER CENTER 100 ML IV SCH; +NS IV 500 ML (CANCER CENTER) 500 ML IV SCH
[2021-08-10 15:34] LABS: BASOPHILS # (AUTO) 0.1 10^3/uL (0.0-0.1); BASOPHILS % (AUTO) 1 % (0-10); EOSINOPHILS # (AUTO) 0.4 10^3/uL (0.0-0.3); EOSINOPHILS % (AUTO) 4 % (0-10); HEMATOCRIT 44 % (40-54); HEMOGLOBIN 13.9 g/dL (13.3-17.7); LYMPHOCYTES # (AUTO) 1.9 10^3/uL (1.0-4.0); LYMPHOCYTES % (AUTO) 19 % (12-44); MEAN CORPUSCULAR HEMOGLOBIN 30 pg (25-34); MEAN CORPUSCULAR HGB CONC 32 g/dL (32-36); MEAN CORPUSCULAR VOLUME 93 fL (80-99); MONOCYTES # (AUTO) 0.8 10^3/uL (0.0-1.0); MONOCYTES % (AUTO) 8 % (0-12); NEUTROPHILS # (AUTO) 6.6 10^3/uL (1.8-7.8); NEUTROPHILS % (AUTO) 67 % (42-75); PLATELET COUNT 280 10^3/uL (130-400); WHITE BLOOD COUNT 9.9 10^3/uL (4.3-11.0)
[2021-08-10 15:57] LABS: ALBUMIN 4.1 GM/DL (3.2-4.5); BILIRUBIN,TOTAL 0.6 MG/DL (0.1-1.0); CALCIUM 9.2 MG/DL (8.5-10.1); CREATININE SERUM 1.13 MG/DL (0.60-1.30); POTASSIUM 4.8 MMOL/L (3.6-5.0)
== END 2021-08-31 | disposition home or self-care (01) ==
LOC: ONC 15:11
PROVIDERS: ATTEND Internal Medicine Hematology & Oncology
DX: Z51.11 Encounter for antineoplastic chemotherapy (principal); C64.2 Malignant neoplasm of left kidney, except renal pelvis; C78.01 Secondary malignant neoplasm of right lung; E11.22 Type 2 diabetes mellitus with diabetic chronic kidney disease; K52.9 Noninfective gastroenteritis and colitis, unspecified; I12.9 Hypertensive chronic kidney disease with stage 1 through stage 4 chronic kidney disease, or unspecified chronic kidney disease; N18.30 Chronic kidney disease, stage 3 unspecified; H10.9 Unspecified conjunctivitis; Z79.4 Long term (current) use of insulin; Z90.5 Acquired absence of kidney
CPT/HCPCS: 80053; 82728; 83540; 83550; 85025; 96413; G0463; 36591

== ENCOUNTER 2021-09-07 15:14 | Outpatient (RCR) | payer BC, OTHER ==
[~2021-09-07] VITALS: Ht 188 cm; Wt 84.4 kg
[~2021-09-07 15:14] MED LIST changes: +HEParin (CENTRAL IV FLUSH) 500 UNIT/5 ML SYR IV PRN; +NIVOLUMAB 480 MG in NS (IVPB) 100 ML IV SCH; -NIVOLUMAB 480 MG in NS (IVPB) CANCER CENTER 100 ML IV SCH; +NS (IVPB) 250 ML IV SCH; -NS IV 500 ML (CANCER CENTER) 500 ML IV SCH
[2021-09-07 15:44] LABS: BASOPHILS % (AUTO) 1 % (0-10); EOSINOPHILS # (AUTO) 0.6 10^3/uL (0.0-0.3); EOSINOPHILS % (AUTO) 8 % (0-10); HEMATOCRIT 40 % (40-54); HEMOGLOBIN 12.8 g/dL (13.3-17.7); LYMPHOCYTES # (AUTO) 1.4 10^3/uL (1.0-4.0); LYMPHOCYTES % (AUTO) 18 % (12-44); MEAN CORPUSCULAR HEMOGLOBIN 30 pg (25-34); MEAN CORPUSCULAR HGB CONC 32 g/dL (32-36); MEAN CORPUSCULAR VOLUME 93 fL (80-99); MEAN PLATELET VOLUME 10.7 fL (9.0-12.2); MONOCYTES # (AUTO) 0.7 10^3/uL (0.0-1.0); MONOCYTES % (AUTO) 9 % (0-12); NEUTROPHILS # (AUTO) 5.2 10^3/uL (1.8-7.8); NEUTROPHILS % (AUTO) 65 % (42-75); PLATELET COUNT 222 10^3/uL (130-400)
[2021-09-07 16:19] LABS: ALBUMIN 4.3 GM/DL (3.2-4.5)
[2021-09-07 16:20] LABS: POTASSIUM 4.4 MMOL/L (3.6-5.0)
[2021-09-07 16:21] LABS: CALCIUM 9.5 MG/DL (8.5-10.1)
[2021-09-07 16:22] LABS: TOTAL PROTEIN 6.8 GM/DL (6.4-8.2)
[2021-09-07 16:24] LABS: BILIRUBIN,TOTAL 0.8 MG/DL (0.1-1.0)
[2021-09-07 16:25] LABS: CREATININE SERUM 1.3 MG/DL (0.60-1.30)
== END 2021-09-30 | disposition home or self-care (01) ==
LOC: ONC 15:14
PROVIDERS: ATTEND Internal Medicine Hematology & Oncology
DX: Z51.11 Encounter for antineoplastic chemotherapy (principal); Z45.2 Encounter for adjustment and management of vascular access device; C64.2 Malignant neoplasm of left kidney, except renal pelvis; C78.01 Secondary malignant neoplasm of right lung; E11.22 Type 2 diabetes mellitus with diabetic chronic kidney disease; K52.9 Noninfective gastroenteritis and colitis, unspecified; I12.9 Hypertensive chronic kidney disease with stage 1 through stage 4 chronic kidney disease, or unspecified chronic kidney disease; N18.30 Chronic kidney disease, stage 3 unspecified; H10.9 Unspecified conjunctivitis; J44.9 Chronic obstructive pulmonary disease, unspecified; Z79.4 Long term (current) use of insulin; Z90.5 Acquired absence of kidney; Z72.0 Tobacco use
CPT/HCPCS: 80053; 85025; 96413; G0463; 36415; 99213

== ENCOUNTER 2021-10-05 15:18 | Outpatient (RCR) | payer BC, OTHER ==
[2021-10-05 15:45] LABS: BASOPHILS % (AUTO) 0 % (0-10); EOSINOPHILS # (AUTO) 0.5 10^3/uL (0.0-0.3); EOSINOPHILS % (AUTO) 6 % (0-10); HEMATOCRIT 38 % (40-54); HEMOGLOBIN 12.1 g/dL (13.3-17.7); LYMPHOCYTES # (AUTO) 2.1 10^3/uL (1.0-4.0); LYMPHOCYTES % (AUTO) 24 % (12-44); MEAN CORPUSCULAR HEMOGLOBIN 30 pg (25-34); MEAN CORPUSCULAR HGB CONC 32 g/dL (32-36); MEAN CORPUSCULAR VOLUME 93 fL (80-99); MEAN PLATELET VOLUME 10.1 fL (9.0-12.2); MONOCYTES # (AUTO) 0.8 10^3/uL (0.0-1.0); MONOCYTES % (AUTO) 9 % (0-12); NEUTROPHILS # (AUTO) 5.2 10^3/uL (1.8-7.8); NEUTROPHILS % (AUTO) 60 % (42-75); PLATELET COUNT 227 10^3/uL (130-400); WHITE BLOOD COUNT 8.6 10^3/uL (4.3-11.0)
[2021-10-05 16:02] LABS: ALBUMIN 4.1 GM/DL (3.2-4.5); BILIRUBIN,TOTAL 0.8 MG/DL (0.1-1.0); CALCIUM 9.4 MG/DL (8.5-10.1); CREATININE SERUM 1.38 MG/DL (0.60-1.30); POTASSIUM 4.2 MMOL/L (3.6-5.0); TOTAL PROTEIN 6.5 GM/DL (6.4-8.2)
== END 2021-10-31 | disposition home or self-care (01) ==
LOC: ONC 15:18
PROVIDERS: ATTEND Internal Medicine Hematology & Oncology
DX: Z51.11 Encounter for antineoplastic chemotherapy (principal); C64.2 Malignant neoplasm of left kidney, except renal pelvis; C78.01 Secondary malignant neoplasm of right lung; E11.22 Type 2 diabetes mellitus with diabetic chronic kidney disease; K52.9 Noninfective gastroenteritis and colitis, unspecified; I12.9 Hypertensive chronic kidney disease with stage 1 through stage 4 chronic kidney disease, or unspecified chronic kidney disease; N18.30 Chronic kidney disease, stage 3 unspecified; H10.9 Unspecified conjunctivitis; J44.9 Chronic obstructive pulmonary disease, unspecified; Z79.4 Long term (current) use of insulin; Z90.5 Acquired absence of kidney; Z72.0 Tobacco use
CPT/HCPCS: 80053; 85025; 96413; G0463; 99213

== ENCOUNTER 2021-11-03 13:00 | Outpatient (RCR) | payer BC ==
[2021-11-08] MEDS ORDERED: OXYC1TAB11 PO (10:04)
[2021-11-08] MEDS ORDERED: LISI20TA26 PO ×2 (10:04→11:09)
[2021-11-08] MEDS ORDERED: IPRA3AMP31 IH (10:04)
[2021-11-08] MEDS ORDERED: INSU100I14 SQ (10:04)
[2021-11-08] MEDS ORDERED: AMLO2.5T4 PO (10:04)
[2021-11-08] MEDS ORDERED: GLIM4TAB5 PO (10:04)
[2021-11-08] MEDS ORDERED: INSU100I29 SQ (10:04)
[2021-11-10] MEDS ORDERED: CEFD300C3 PO (13:13)
== END 2021-11-30 | disposition home or self-care (01) ==
LOC: ONC 13:00
PROVIDERS: ATTEND Internal Medicine Hematology & Oncology
DX: Z51.11 Encounter for antineoplastic chemotherapy (principal); C64.2 Malignant neoplasm of left kidney, except renal pelvis; C78.01 Secondary malignant neoplasm of right lung; E11.22 Type 2 diabetes mellitus with diabetic chronic kidney disease; K52.9 Noninfective gastroenteritis and colitis, unspecified; I12.9 Hypertensive chronic kidney disease with stage 1 through stage 4 chronic kidney disease, or unspecified chronic kidney disease; N18.30 Chronic kidney disease, stage 3 unspecified; H10.9 Unspecified conjunctivitis; J44.9 Chronic obstructive pulmonary disease, unspecified; Z79.4 Long term (current) use of insulin; Z90.5 Acquired absence of kidney; Z72.0 Tobacco use

== ENCOUNTER 2021-11-07 19:52 | Inpatient (IN) | payer BC, MEDICARE ==
[~2021-11-07] VITALS: Ht 193 cm; Wt 86.1 kg
[~2021-11-07 19:52] MED LIST changes: -HEParin (CENTRAL IV FLUSH) 500 UNIT/5 ML SYR IV PRN; -NIVOLUMAB 480 MG in NS (IVPB) 100 ML IV SCH; -NS (IVPB) 250 ML IV SCH
[2021-11-07] MEDS ORDERED: AZITHROMYCIN INJECTION 500 MG in NS (IVPB) 250 ML IV ONE (20:15)
[2021-11-07] MEDS ORDERED: ACETAMINOPHEN 500 MG TAB (TYLENOL) PO ONE (20:15)
[2021-11-07] MEDS ORDERED: NS IV 1000 ML 1,000 ML IV SCH ×2 (20:15→21:15)
[2021-11-07] MEDS ORDERED: cefTRIAXone 1 GM PRE-MIX 50 ML IV ONE (20:15)
--- NOTE | 2021-11-07 20:15 | ED General ---
General Chief Complaint: Chest Pain Stated Complaint: CHEST PAIN,SOB Source of Information: Patient Exam Limitations: No Limitations History of Present Illness Date Seen by Provider: Nov 07, 2021 Time Seen by Provider: 20:00 Initial Comments Patient is a 66-year-old male who presents to the emergency department today with a chief complaint of shortness of breath, midsternal chest pain, productive cough and fever, coming on over the last 2 to 3 days. Patient states that his symptoms worsened today with a fever and he had some aspirin around 2:00 this afternoon. He does smoke cigarettes approximately half a pack a day. He does not have to use inhalers. He denies any history of coronary artery disease. He did have a stress test last year. No history of cardiac cath. He is a diabetic. He takes medications for hypertension. He wears 2 L of oxygen at night at all times. On my arrival into the room he is 87/88% on the 2 L. Temp is 102. No problems with bowel or bladder function. He did have a history of rheumatic fever as a child. No rashes joint pain or swelling. 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 All other review of systems reviewed and negative except as stated. Timing/Duration: 2-3 Days Severity: Moderate Associated Systoms: Cough, Fever/Chills, Malaise, Shortness of Air, Weakness Allergies and Home Medications Allergies Coded Allergies: meperidine (Verified Allergy, Mild, RASH, Pt has received Fentanyl w/o issue, 12/15/18) Patient Home Medication List Home Medication List Reviewed: Yes Albuterol Sulfate (Proair Hfa) 1 Puff Puff, 2 PUFF IH Q4H PRN for SHORTNESS OF BREATH, (Reported) Entered as Reported by: ILA PAINTING on 07/10/21 1533 Last Action: Reviewed Amlodipine Besylate (Amlodipine Besylate) 2.5 Mg Tablet, 2.5 MG PO HS, (Reported) Entered as Reported by: ILA PAINTING on 11/08/21 1004 Last Action: Reviewed Ascorbic Acid (Vitamin C) 500 Mg Tablet, 500 MG PO DAILY, (Reported) Entered as Reported by: JADA KIMBALL on 09/21/15 1057 Last Action: Reviewed Cholecalciferol (Vitamin D3) (Vitamin D3) 25 Mcg Capsule, 25 MCG PO DAILY, (Reported) Entered as Reported by: ILA PAINTING on 07/10/211521 Last Action: Reviewed Colestipol HCl (Colestipol HCl) 1 Gm Tablet, 2 GM PO BID, (Reported) Entered as Reported by: JADA KIMBALL on 04/19/171518 Last Action: Reviewed Ferrous Sulfate (Ferosul) 325 Mg Tablet, 325 MG PO DAILY, (Reported) Entered as Reported by: JADA KIMBALL on 04/19/171518 Last Action: Reviewed Fluticasone Propionate (Flonase Allergy Relief) 9.9 Ml [place].susp, 1-2 SPRAY NS EACH DAILY PRN for CONGESTION, (Reported) Entered as Reported by: ILA PAINTING on 07/10/211532 Last Action: Reviewed Fluticasone/Vilanterol (Breo Ellipta 200-25 Mcg INH) 1 Each Blst.w.dev, 1 EACH IH DAILY, (Reported) Entered as Reported by: ILA PAINTING on 07/10/211532 Last Action: Reviewed Insulin Aspart (Novolog Flexpen) 100 Unit/Ml (3 Ml) Solution, 8 UNITS SQ AC, (Reported) Entered as Reported by: ILA PAINTING on 11/08/211003 Last Action: Reviewed Insulin Detemir (Levemir Flextouch) 100 Unit/Ml (3 Ml) Insuln.pen, 23 UNIT SQ HS, (Reported) Entered as Reported by: ILA PAINTING on 11/08/211003 Last Action: Reviewed Ipratropium/Albuterol Sulfate (Iprat-Albut 0.5-3(2.5) mg/3 ml) 0.5 Mg-3 Mg (2.5 Mg Base)/3 Ml Ampul.neb, 3 ML IH TID, (Reported) Entered as Reported by: IAL PAINTING on 11/08/211003 Last Action: Reviewed Lisinopril (Lisinopril) 20 Mg Tablet, 20 MG PO DAILY, (Reported) Entered as Reported by: ILA PAINTING on 11/08/21 1109 Last Action: Reviewed Lutein (Lutein) 20 Mg Tablet, 40 MG PO DAILY, (Reported) Entered as Reported by: JADA KIMBALL on 09/21/15 1057 Last Action: Reviewed Oxycodone HCl/Acetaminophen (Oxycodone-Acetaminophen 5-325) 5 Mg-325 Mg Tablet, 1 EA PO BID PRN for PAIN-MODERATE (5-7), (Reported) Entered as Reported by: ILA PAINTING on 11/08/21 1004 Last Action: Reviewed Discontinued Medications Acetaminophen (Tylenol Extra Strength) 500 Mg Tablet, 1,000 MG PO Q8H PRN for PAIN-MILD (1-4), (Reported) Discontinued Reason: No Longer Taking Entered as Reported by: ILA PAINTING on 07/10/21 153 Last Action: Discontinued Amoxicillin/Potassium Clav (Augmentin 875-125 Tablet) 1 Each Tablet, 1 EACH PO BID Discontinued Reason: No Longer Taking Prescribed by: FARHAN COYLE on 07/12/211122 Last Action: Discontinued Gabapentin (Neurontin) 300 Mg Capsule, 300 MG PO TID, (Reported) Discontinued Reason: No Longer Taking Entered as Reported by: ILA PAINTING on 07/10/21 1522 Last Action: Discontinued Glimepiride (Glimepiride) 4 Mg Tablet, 4 MG PO, (Reported) Discontinued Reason: Duplicate Order Entered as Reported by: ILA PAINTING on 11/08/21 100 Last Action: Discontinued Hydrocodone Bit/Acetaminophen (HYDROcodone/APAP 5 MG/325 MG TAB) 1 Tab Tab, 1 EA PO Q4HR PRN for PAIN-MODERATE (5-7) Discontinued Reason: Duplicate Order Prescribed by: FARHAN COYLE on 07/12/211123 Last Action: Discontinued Insulin Aspart (Novolog Flexpen) 300 Units/3 Ml Solution, 8 UNITS SQ AC Discontinued Reason: Duplicate Order Prescribed by: FARHAN COYLE on 07/12/211122 Last Action: Discontinued Insulin Detemir (Levemir Flextouch) 100 Unit/1 Ml Insuln.pen, 20 UNITS SC BID Discontinued Reason: Duplicate Order Prescribed by: FARHAN COYLE on 07/12/211122 Last Action: Discontinued Ipratropium/Albuterol Sulfate (Iprat-Albut 0.5-3(2.5) mg/3 ml) 3 Ml Ampul.neb, 3 ML INH TID Discontinued Reason: Duplicate Order Prescribed by: FARHAN COYLE on 07/12/211122 Last Action: Discontinued Lisinopril (Lisinopril) 20 Mg Tablet, 20 MG PO DAILY, (Reported) Discontinued Reason: New Order Entered as Reported by: ILA PAINTING on 11/08/21 1004 Last Action: Discontinued Pantoprazole Sodium (Pantoprazole Sodium) 40 Mg Tablet.dr, 40 MG PO DAILY Discontinued Reason: No Longer Taking Prescribed by: FARHAN COYLE on 07/12/211122 Last Action: Discontinued Prednisone (Prednisone) 10 Mg Tab.ds.pk, 10 MG PO DAILY Discontinued Reason: No Longer Taking Prescribed by: FARHAN COYLE on 07/12/211122 Last Action: Discontinued Review of Systems Review of Systems Constitutional: see HPI, fever, malaise, weakness EENTM: nose congestion Respiratory: cough, dyspnea on exertion, phlegm, short of breath Cardiovascular: chest pain Gastrointestinal: no symptoms reported Genitourinary: no symptoms reported Musculoskeletal: muscle cramps Skin: no symptoms reported All Other Systems Reviewed Negative Unless Noted: Yes Past Wvmkcfa-Gztlfe-Iyhgpx Hx Patient Social History Tobacco Use?: Yes Tobacco type used: Cigarettes Smoking Status: Current Everyday Smoker Substance use?: No Alcohol Use?: No Pt feels they are or have been: No Immunizations Up To Date Tetanus Booster (TDap): More than 5yrs Influenza Vaccine Up-to-Date: Yes; Up-to-Date First/Initial COVID19 Vaccinat: unknown date Second COVID19 Vaccination Sal: JUN 2021 Seasonal Allergies Seasonal Allergies: No Past Medical History Surgery/Hospitalization HX: pneumonia in june Surgeries: Yes (BILAT TKR, BMT, HERNIA X2;CATARACTS;THUMB SURGERY;L NEPHRECTOMY;LUNG BX) Abdominal, Ear Surgery, Eye Surgery, Gallbladder, Joint Replacement, Nephrectomy, Orthopedic Respiratory: Yes (LUNG BIOPSY/PNEUMOTHORAX; LUNG CANCER) Pneumonia, Chronic Bronchitis Currently Using CPAP: No Currently Using BIPAP: No Cardiac: Yes Hypertension, Rheumatic Fever Neurological: No Reproductive Disorders: No HIV/AIDS: No Genitourinary: Yes (RENAL CANCER--LEFT NEPHRECTOMY) Gastrointestinal: Yes Chronic Diarrhea, Polyps Musculoskeletal: Yes (FX L LEG,CLAVICLE,RIBS,FOOT; KNEE SX/SCREWS;OSTEOARTHRITIS KNEES/BILAT TKR) Degenerate Disk Disease, Arthritis, Chronic Back Pain, Fractures Endocrine: Yes (INSULIN + ORAL MEDICATIONS) Diabetes, Insulin dep HEENT: Yes (GLASSES, PARTIAL ) Cataract Loss of Vision: Denies Hearing Impairment: Hard of Hearing Cancer: Yes (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) Lung, Kidney Did You Recieve Any Treatments: Yes What Type of Treatment Did You: Chemotherapy, Surgical Intervention Psychosocial: No Integumentary: No Blood Disorders: No Adverse Reaction/Blood Tranf: No (N/A) Family Medical History Diabetes mellitus 19 FATHER 19 MOTHER G8 BROTHER FH: skin cancer 19 MOTHER Family history: Arthritis Family history: Coronary thrombosis Family history: Diabetes mellitus History of - respiratory disease No Family History of: Abdominal aortic aneurysm Karlos's disease Alcoholism Aphasia Cancer Cancer of colon Cataract Chest pain Congenital heart disease Congestive heart failure Cystic fibrosis Dementia Dysphagia Family history: Allergy Family history: Alzheimer's disease Family history: Asthma Family history: Breast disease Family history: Cardiovascular disease Family history: Gastrointestinal disease Family history: Glaucoma Family history: Hypertension Family history: Osteoporosis Family history: Thyroid disorder Headache Hearing loss Heart disease Hereditary disease History of - anemia History of - disorder History of drug abuse Human immunodeficiency virus (HIV) seropositivity Hypercholesterolemia Infertile Kidney disease Malignant neoplasm of lung Myocardial infarction Parkinson's disease Prostate cancer Psychotic disorder Seizure disorder Stroke Tuberculosis Visual impairment No Pertinent Family Hx SOCIAL HISTORY: -ETOH--DENIES USE -SMOKES 1 PPD -DRUGS--DENIES USE PSH: -HERNIA REPAIR X 2 -BILATERAL MYRINGOTOMY TUBES -CARPAL TUNNEL SURGERY -BILATERAL CATARACT SURGERY -SCREWS IN KNEE AND LATER REMOVED -BILATERAL KNEE REPLACEMENTS 2013 -LEFT NEPHRECTOMY FOR CANCER 2013 -LUNG BIOPSY WITH PNEUMOTHORAX Physical Exam-Suspected Sepsis Physical Exam Vital Signs Vital Signs - First Documented 11/07/21 11/07/21 20:00 23:59 Temp 39.3 Pulse 118 Resp 24 B/P (MAP) 111/57 (75) Pulse Ox 86 O2 Delivery Room Air O2 Flow Rate 3.00 FiO2 28 Capillary Refill : Height, Weight, BMI Height: 6'4.00" Weight: 203lbs. 5.0oz. 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 Norm as Tested Skin: normal color, warm/dry Focused Exam Lactate Level 11/07/21 20:05: Lactic Acid Level 0.98 Time of Focused Exam: 21:05 Respiratory: Chest Non Tender, No Accessory Muscle Use, No Respiratory Distress, Crackles (left base), Decreased Breath Sounds (left base) Cardiovascular: Regular Rate, Rhythm (HR 991-95), Normal Peripheral Pulses Capillary Refill: Less Than 3 Seconds Peripheral Pulses: 2+ Radial Pulses (R), 2+ Radial Pulses (L) Skin: normal color, warm/dry Lactic Acid Level Within 3hrs of presentation: Admin fluids, Admin ABX, Blood cultures prior to ABX's, Focus exam, Lactate level Procedures/Interventions Lumen: triple Central Line Procedure: betadine prep, sterile drapes applied, sterile dressing applied Position: femoral (R) Anesthesia: Lidocaine Volume Anesthetic (ccs): 7 Complications: none Post Position: sutured, good blood return Date of ETT Placement: Jul 07, 2021 Time of ETT Placement: 2236 Progress/Results/Core Measures Suspected Sepsis SIRS Temperature: Pulse: Respiratory Rate: Laboratory Tests 11/08/21 04:35: White Blood Count 29.2H 11/09/21 05:00: White Blood Count 19.6H 11/10/21 05:22: White Blood Count 19.1H Blood Pressure / Mean: 11/07/21 20:05: Lactic Acid Level 0.98 Laboratory Tests 11/07/21 20:05: INR Comment 1.0 11/08/21 04:35: Creatinine 1.64H, Platelet Count 186, Total Bilirubin 1.3H 11/09/21 05:00: Creatinine 1.33H, Platelet Count 164, Total Bilirubin 0.3 11/10/21 05:22: Creatinine 1.16, Platelet Count 199, Total Bilirubin 0.3 Results/Orders Lab Results Laboratory Tests Test 11/08/21 11:25 11/08/21 15:39 11/08/21 21:06 11/09/21 05:00 Range/Units Glucometer 226 H 100 98 70-110 MG/DL White Blood Count 19.6 H 4.3-11.0 10^3/uL Red Blood Count 3.35 L 4.30-5.52 10^6/uL Hemoglobin 10.0 L 13.3-17.7 g/dL Hematocrit 32 L 40-54 % Mean Corpuscular Volume 94 80-99 fL Mean Corpuscular Hemoglobin 30 25-34 pg Mean Corpuscular Hemoglobin Concent 32 32-36 g/dL Red Cell Distribution Width 14.8 H 10.0-14.5 % Platelet Count 164 130-400 10^3/uL Mean Platelet Volume 10.4 9.0-12.2 fL Immature Granulocyte % (Auto) 1 % Neutrophils (%) (Auto) 82 H 42-75 % Lymphocytes (%) (Auto) 8 L 12-44 % Monocytes (%) (Auto) 8 0-12 % Eosinophils (%) (Auto) 1 0-10 % Basophils (%) (Auto) 0 0-10 % Neutrophils # (Auto) 16.0 H 1.8-7.8 10^3/uL Lymphocytes # (Auto) 1.5 1.0-4.0 10^3/uL Monocytes # (Auto) 1.6 H 0.0-1.0 10^3/uL Eosinophils # (Auto) 0.2 0.0-0.3 10^3/uL Basophils # (Auto) 0.0 0.0-0.1 10^3/uL Immature Granulocyte # (Auto) 0.2 H 0.0-0.1 10^3/uL Sodium Level 135 135-145 MMOL/L Potassium Level 4.3 3.6-5.0 MMOL/L Chloride Level 106 98-107 MMOL/L Carbon Dioxide Level 20 L 21-32 MMOL/L Anion Gap 9 5-14 MMOL/L Blood Urea Nitrogen 27 H 7-18 MG/DL Creatinine 1.33 H 0.60-1.30 MG/DL Estimat Glomerular Filtration Rate 59 BUN/Creatinine Ratio 20 Glucose Level 82 70-105 MG/DL Calcium Level 7.7 L 8.5-10.1 MG/DL Corrected Calcium 8.7 8.5-10.1 MG/DL Magnesium Level 2.0 1.6-2.4 MG/DL Total Bilirubin 0.3 0.1-1.0 MG/DL Aspartate Amino Transf (AST/SGOT) 20 5-34 U/L Alanine Aminotransferase (ALT/SGPT) 21 0-55 U/L Alkaline Phosphatase 52 40-136 U/L Total Protein 4.9 L 6.4-8.2 GM/DL Albumin 2.7 L 3.2-4.5 GM/DL Test 11/09/21 11:02 11/09/21 16:01 11/09/21 20:08 11/10/21 05:22 Range/Units Glucometer 95 164 H 220 H 70-110 MG/DL White Blood Count 19.1 H 4.3-11.0 10^3/uL Red Blood Count 3.53 L 4.30-5.52 10^6/uL Hemoglobin 10.4 L 13.3-17.7 g/dL Hematocrit 33 L 40-54 % Mean Corpuscular Volume 94 80-99 fL Mean Corpuscular Hemoglobin 30 25-34 pg Mean Corpuscular Hemoglobin Concent 31 L 32-36 g/dL Red Cell Distribution Width 14.9 H 10.0-14.5 % Platelet Count 199 130-400 10^3/uL Mean Platelet Volume 10.5 9.0-12.2 fL Immature Granulocyte % (Auto) 4 % Neutrophils (%) (Auto) 85 H 42-75 % Lymphocytes (%) (Auto) 4 L 12-44 % Monocytes (%) (Auto) 6 0-12 % Eosinophils (%) (Auto) 1 0-10 % Basophils (%) (Auto) 0 0-10 % Neutrophils # (Auto) 16.2 H 1.8-7.8 10^3/uL Lymphocytes # (Auto) 0.8 L 1.0-4.0 10^3/uL Monocytes # (Auto) 1.2 H 0.0-1.0 10^3/uL Eosinophils # (Auto) 0.1 0.0-0.3 10^3/uL Basophils # (Auto) 0.1 0.0-0.1 10^3/uL Immature Granulocyte # (Auto) 0.8 H 0.0-0.1 10^3/uL Sodium Level 135 135-145 MMOL/L Potassium Level 4.8 3.6-5.0 MMOL/L Chloride Level 105 98-107 MMOL/L Carbon Dioxide Level 20 L 21-32 MMOL/L Anion Gap 10 5-14 MMOL/L Blood Urea Nitrogen 22 H 7-18 MG/DL Creatinine 1.16 0.60-1.30 MG/DL Estimat Glomerular Filtration Rate 69 BUN/Creatinine Ratio 19 Glucose Level 181 H 70-105 MG/DL Calcium Level 8.2 L 8.5-10.1 MG/DL Corrected Calcium 9.2 8.5-10.1 MG/DL Magnesium Level 1.7 1.6-2.4 MG/DL Total Bilirubin 0.3 0.1-1.0 MG/DL Aspartate Amino Transf (AST/SGOT) 22 5-34 U/L Alanine Aminotransferase (ALT/SGPT) 21 0-55 U/L Alkaline Phosphatase 78 40-136 U/L Total Protein 5.2 L 6.4-8.2 GM/DL Albumin 2.8 L 3.2-4.5 GM/DL Test 11/10/21 05:30 Range/Units Glucometer 160 H 70-110 MG/DL My Orders Medications Given in ED Vital Signs/I&O 11/09/21 11/09/21 11/09/21 11/09/21 19:00 19:24 21:00 21:56 Temp 36.1 Pulse 74 71 Resp 18 B/P (MAP) 138/63 Pulse Ox 95 91 92 O2 Delivery Nasal Cannula High Flow N/C High Flow N/C O2 Flow Rate 3.00 5.00 3.00 11/10/21 11/10/21 11/10/21 00:08 01:00 03:55 Temp 37.6 37.3 Pulse 92 116 110 Resp 20 18 B/P (MAP) 128/60 126/89 Pulse Ox 90 91 O2 Delivery Nasal Cannula Nasal Cannula O2 Flow Rate 3.00 5.00 Capillary Refill : Progress Note #1: Time: 21:01 Progress Note Patient reevaluated, heart rate is 100 currently with a BP of 113/55, respiratory rate 21, sats are 97%. He's awake and alert, but sleepy. No complaints (except chest pain when he coughs). Labs show leukocytosis, slight i ncrease in kidney function and slightly high glu. COVID NEG. Large Left lower lobe infiltrate. Given azithro and rocephin at presentation. Discussed with Dr Coyle. She will do que'd orders. I would feel better with him in a step down bed, rather than the floor. Progress Note #2: Time: 22:43 Progress Note Noted approximately 30 minutes after Rocephin had infused the patient's blood pressure started trending down over the course of about 30 minutes. He dropped his blood pressure into the 80s systolic. I discussed this change in status with Dr. Coyle. We will change him to an ICU bed. I placed a right femoral central line, 20 cm line for complications. ECG Initial ECG Impression Date: Nov 07, 2021 Initial ECG Impression Time: 20:24 Initial ECG Rate: 103 Initial ECG Rhythm: S.Tach Initial ECG Intervals MN 136 QRS 134 QTc 411 Initial ECG Impression: Nonspecific Changes Diagnostic Imaging Diagonstic Imaging: Xray Plain Films/CT/US/NM/MRI: chest Comments [facility] [place] [place] NAME: JAROD [facility]JA [facility] REC#: [id number] PT STATUS: REG ER : 1955 PHYSICIAN: DORITA CHATMAN ADMIT DATE: 11/07/21/ER Draft Date of Exam:11/07/21 CHEST 1 VIEW, AP/PA ONLY Indication: Chest pain, shortness of breath. Portable chest at 8:16 PM There are emphysematous changes in the lungs. There is a large area of consolidation in the left lower lung that was not present on exam dated 07/09/2021. This likely represents pneumonia. Patient also has a moderate-sized hiatal hernia. IMPRESSION: A 10 cm ill-defined opacity in the left lower lung, suspicious for pneumonia. Dictated on workstation # [id number] Dict: 11/07/212017 Trans: 11/07/212019 [facility] [id number] Interpreted by: MORGAN JACKSON MD Electronically signed by: Departure Communication (Admissions) Time/Spoke to Admitting Phy: 20:[address] Coyle; IP to step down Time/Spoke to Consulting Phy: 22:47 Discussed with eICU; Impression Primary Impression: Community acquired pneumonia Qualified Codes: J18.9 - Pneumonia, unspecified organism Additional Impressions: Insulin dependent diabetes mellitus COPD (chronic obstructive pulmonary disease) Qualified Codes: J44.9 - Chronic obstructive pulmonary disease, unspecified Sepsis Qualified Codes: A41.9 - Sepsis, unspecified organism; R65.20 - Severe sepsis without septic shock; J96.01 - Acute respiratory failure with hypoxia Disposition: ADMITTED INPATIENT Condition: Stable Admissions Decision to Admit Reason: Admit from ER (General) Decision to Admit/Date: Nov 07, 2021 Time/Decision to Admit Time: 20:28 Departure-Patient Inst. Referrals: SHAWN CALLEJAS MD (PCP/Family) Primary Care Physician TIERRA MOODY MD Nov 07, 2021 20:15
[2021-11-07 20:18] LABS: BASOPHILS # (AUTO) 0.1 10^3/uL (0.0-0.1); BASOPHILS % (AUTO) 0 % (0-10); EOSINOPHILS % (AUTO) 0 % (0-10); HEMATOCRIT 38 % (40-54); HEMOGLOBIN 12.5 g/dL (13.3-17.7); LYMPHOCYTES # (AUTO) 0.9 10^3/uL (1.0-4.0); LYMPHOCYTES % (AUTO) 5 % (12-44); MEAN CORPUSCULAR HEMOGLOBIN 30 pg (25-34); MEAN CORPUSCULAR HGB CONC 33 g/dL (32-36); MEAN CORPUSCULAR VOLUME 91 fL (80-99); MEAN PLATELET VOLUME 10.1 fL (9.0-12.2); MONOCYTES # (AUTO) 2.8 10^3/uL (0.0-1.0); MONOCYTES % (AUTO) 14 % (0-12); NEUTROPHILS # (AUTO) 16.3 10^3/uL (1.8-7.8); NEUTROPHILS % (AUTO) 81 % (42-75); PLATELET COUNT 214 10^3/uL (130-400); WHITE BLOOD COUNT 20.2 10^3/uL (4.3-11.0)
--- NOTE | 2021-11-07 20:21 | Diagnostic Imaging Report ---
Indication: Chest pain, shortness of breath. Portable chest at 8:16 PM There are emphysematous changes in the lungs. There is a large area of consolidation in the left lower lung that was not present on exam dated 07/09/2021. This likely represents pneumonia. Patient also has a moderate-sized hiatal hernia. IMPRESSION: A 10 cm ill-defined opacity in the left lower lung, suspicious for pneumonia. Dictated by: Dictated on workstation # [id number]
[2021-11-07 20:32] LABS: ALBUMIN 3.8 GM/DL (3.2-4.5); POTASSIUM 3.9 MMOL/L (3.6-5.0)
[2021-11-07 20:33] LABS: CALCIUM 8.8 MG/DL (8.5-10.1)
[2021-11-07 20:34] LABS: PROTHROMBIN TIME PATIENT 13.9 SEC (12.2-14.7); TOTAL PROTEIN 6.5 GM/DL (6.4-8.2)
[2021-11-07 20:40] LABS: LYMPHOCYTES % (MANUAL) 4 %; MONOCYTES % (MANUAL) 15 %; NEUTROPHILS % (MANUAL) 81 %; RBC MORPH NORMAL
[2021-11-07 20:41] LABS: CREATININE SERUM 1.63 MG/DL (0.60-1.30)
[2021-11-07] MEDS ORDERED: RT-ALBUTEROL SULF 2.5 MG/3 ML PRE-MIX VIAL INH ONE (21:15)
[2021-11-07 22:14] LABS: ABG OXYGEN SATURATION 93 % (94-100); ABG PCO2 53 MMHG (35-45); ABG PO2 72 MMHG (79-93)
[2021-11-07 22:15] LABS: ABG PH 7.29 (7.37-7.43); ALLENS TEST POSITIVE; INSPIRED O2 3; PATIENT TEMP 38.3; VENTILATOR NO
[2021-11-07] MEDS: NOREPINEPHRINE 8 MG/250 ML 250 ML IV SCH (22:53)
[2021-11-07] MEDS ORDERED: LACTULOSE SYRUP 10GM/15ML (ENULOSE) 30ML UDC PO PRN (23:45)
[2021-11-07] MEDS ORDERED: BISACODYL 10 MG SUPP (DULCOLAX) PR PRN (23:45)
[2021-11-07] MEDS ORDERED: MILK OF MAGNESIA 400 MG/5 ML 30 ML UDC PO PRN (23:45)
[2021-11-07] MEDS ORDERED: ONDANSETRON 4 MG (ZOFRAN) ORAL DISSOLVE TAB PO PRN (23:45)
[2021-11-07] MEDS ORDERED: PHARMACY TO DOSE IV SCH (23:45)
[2021-11-07] MEDS ORDERED: BENZONATATE 100 MG (TESSALON) CAPSULE PO PRN (23:45)
[2021-11-07] MEDS ORDERED: diphenhydrAMINE 50 MG/ML INJ (BENADRYL) IVP PRN (23:45)
[2021-11-07] MEDS ORDERED: ANTACID SUSP 30 ML UDC (MYLANTA) PO PRN (23:45)
[2021-11-07] MEDS ORDERED: MELATONIN 3 MG TABLET PO PRN (23:45)
[2021-11-07] MEDS ORDERED: polyethylene glycoL POWDER 17 GM (MIRALAX) PACK PO PRN (23:45)
[2021-11-07] MEDS ORDERED: diphenhydrAMINE 25 MG TAB (BENADRYL) PO PRN (23:45)
[2021-11-07] MEDS ORDERED: CALCIUM CARBONATE 500 MG (TUMS) TAB.CHEW PO PRN (23:45)
--- NOTE | 2021-11-08 00:04 | Tele-ICU Progress Note ---
Subjective Date Seen by a Provider: Nov 07, 2021 Time Seen by a Provider: 23:58 Subjective/Events-last exam (Tele-ICU Physician , consultation) Available chart/ vitals / labs / Images reviewed H&P is from ER notes Patient's information available about PMH, allergy reviewed in EMR. ROS as per chart and RN report Video assessment done using teleICU camera, rest of exam as per RN Discussed with RN. Consultants: N/A Hospital course: This is 66 yo M history of DM, admitted with severe LLL pneumonia, septic shock. Discussed with Dr. Mcintyre in the ER. Patient rec'd IVF, antibiotics per sepsis bundle and CVC placement to groin. Started on norepinephrine gtt. ABG reviewed shows acute hypercapnic respiratory failure. Patient is awake on video assessment but drowsy. RN at bedside discussed advanced directive wishes with patient. A/P Severe CAP, septic shock. 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 Recommend initiate BPAP DVT prophylaxis ordered, Hep SC Not intubated, not on steroids- can defer PPI for now Lines: R Fem CVC, new from ED Valente: N/A OG: N/A Nutrition: Keep NPO for now Analgesia: N/A VTE Prophylaxis: Hep SC Stress Ulcer Prophylaxis: Deferred for now Plans in collaboration with bedside consultants and Primary MD, Dr. Tirado Discussed with RN to reach out if any questions or concerns Sepsis Event Evaluation Sepsis Stage: Septic Shock Height, Weight, BMI Height: 6'4.00" Weight: 203lbs. 5.0oz. 92.841506jq; 23.30 BMI Method:Stated Focused Exam Lactate Level 11/07/21 20:05: Lactic Acid Level 0.98 Time of Focused Exam: 21:05 Lactic Acid Level Laboratory Tests Test 11/07/21 20:05 Lactic Acid Level 0.98 MMOL/L (0.50-2.00) Exam Exam Patient acknowledged, consented, and participated in this virtual visit which was conducted using real time audio/video Vital Signs Date Time Temp Pulse Resp B/P (MAP) Pulse Ox O2 Delivery O2 Flow Rate FiO2 11/07/21 23:10 38.3 71 16 109/57 97 Nasal Cannula 3.00 11/07/21 22:53 82/46 11/07/21 21:33 38.3 11/07/21 20:18 39.3 11/07/21 20:00 Nasal Cannula 3.00 11/07/21 20:00 39.3 118 24 111/57 (41) 86 Room Air Height & Weight Height: 6'4.00" Weight: 203lbs. 5.0oz. 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
[2021-11-08 00:05] VITALS: BP 74/42
[2021-11-08] MEDS ORDERED: RT-ALBUTEROL SULF 2.5 MG/3 ML PRE-MIX VIAL INH PRN (00:15)
[2021-11-08] MEDS: NS IV 1000 ML 1,000 ML IV SCH ×4 (00:34→23:41)
[2021-11-08] MEDS: CEFEPIME 1,000 MG/NS 50 ML IVPB IV SCH ×10 (00:35→23:41)
[2021-11-08] MEDS ORDERED: VANCOMYCIN 1500 MG/NS 500 ML IVPB IV ONE ×2 (00:45)
[2021-11-08] MEDS ORDERED: VANCOMYCIN 500 MG/VIAL IV ONE (01:02)
[2021-11-08] MEDS ORDERED: VANCOMYCIN 1000 MG/VIAL ONE (01:03)
[2021-11-08] MEDS ORDERED: NS IV 500 ML 500 ML ONE (01:03)
[2021-11-08 02:31] VITALS: BP 99/52
[2021-11-08 04:49] LABS: BASOPHILS # (AUTO) 0.1 10^3/uL (0.0-0.1); BASOPHILS % (AUTO) 0 % (0-10); EOSINOPHILS # (AUTO) 0.1 10^3/uL (0.0-0.3); EOSINOPHILS % (AUTO) 0 % (0-10); HEMATOCRIT 37 % (40-54); HEMOGLOBIN 11.7 g/dL (13.3-17.7); LYMPHOCYTES # (AUTO) 1.8 10^3/uL (1.0-4.0); LYMPHOCYTES % (AUTO) 6 % (12-44); MEAN CORPUSCULAR HEMOGLOBIN 30 pg (25-34); MEAN CORPUSCULAR HGB CONC 32 g/dL (32-36); MEAN CORPUSCULAR VOLUME 93 fL (80-99); MEAN PLATELET VOLUME 10.2 fL (9.0-12.2); MONOCYTES # (AUTO) 3.6 10^3/uL (0.0-1.0); MONOCYTES % (AUTO) 12 % (0-12); NEUTROPHILS # (AUTO) 23.2 10^3/uL (1.8-7.8); NEUTROPHILS % (AUTO) 80 % (42-75); PLATELET COUNT 186 10^3/uL (130-400); WHITE BLOOD COUNT 29.2 10^3/uL (4.3-11.0)
[2021-11-08 04:55] LABS: ALBUMIN 3.2 GM/DL (3.2-4.5); POTASSIUM 4.4 MMOL/L (3.6-5.0)
[2021-11-08 04:56] LABS: CALCIUM 7.9 MG/DL (8.5-10.1)
[2021-11-08 04:57] LABS: TOTAL PROTEIN 5.4 GM/DL (6.4-8.2)
[2021-11-08 04:59] LABS: BILIRUBIN,TOTAL 1.3 MG/DL (0.1-1.0)
[2021-11-08 05:01] LABS: CREATININE SERUM 1.64 MG/DL (0.60-1.30)
[2021-11-08 05:24] LABS: ABG OXYGEN SATURATION 88 % (94-100); ABG PCO2 50 MMHG (35-45); ABG PO2 53 MMHG (79-93); ABG TCO2 24.4 MMOL/L (21.0-31.0)
[2021-11-08 05:29] LABS: INSPIRED O2 24% BIPAP; PATIENT TEMP 36.6; VENTILATOR NO
[2021-11-08 05:31] LABS: ABG PH 7.28 (7.37-7.43)
[2021-11-08 05:56] LABS: ABG BASE EXCESS -3.4 MMOL/L (-2.5-2.5); ABG OXYGEN SATURATION 96 % (94-100); ABG PCO2 48 MMHG (35-45); ABG PO2 75 MMHG (79-93); ABG TCO2 23.8 MMOL/L (21.0-31.0)
[2021-11-08 05:57] LABS: ABG PH 7.29 (7.37-7.43); INSPIRED O2 24% BIPAP; PATIENT TEMP 36.5; VENTILATOR NO
[2021-11-08] MEDS: inSUlin ASPART (NovoLOG) 1 UNIT/0.01 ML (CHARGE PER UNIT) SC SCH ×4 (06:04→21:07)
[2021-11-08] MEDS: MAGNESIUM 1 GM/100 ML IVPB 100 ML IV SCH ×3 (06:43→07:44)
[2021-11-08] MEDS ORDERED: LACTATED RINGERS 500 ML IV SCH (06:45)
[2021-11-08] MEDS: KCL 20 MEQ TAB (K-DUR) PO SCH (06:49)
[2021-11-08] MEDS: POTASSIUM CL 10MEQ/50ML IVPB 50 ML IV SCH (06:49)
[2021-11-08 06:57] VITALS: BP 99/52
[2021-11-08] MEDS: RT-ALBUTEROL/IPRATROPIUM 3 ML (DUONEB) VIAL INH SCH ×3 (07:04→22:01)
[2021-11-08] MEDS: NOREPINEPHRINE 8 MG/250 ML 250 ML IV SCH (07:27)
--- NOTE | 2021-11-08 08:19 | Diagnostic Imaging Report ---
INDICATION: Pneumonia. TIME OF EXAM: 7:49 AM Correlation is made with prior chest from one day earlier. FINDINGS: Heart size is normal. There is opacity in the left mid to lower lung field, similar to yesterday and again suggestive of pneumonia. Right lung is clear. No effusion or pneumothorax is seen. IMPRESSION: Stable left-sided opacity consistent with pneumonia. Follow-up would be recommended to confirm clearing. Dictated by: Dictated on workstation # [id number]
[2021-11-08] MEDS: SENNOSIDES 8.6 MG (SENOKOT) TAB PO SCH ×2 (08:58→20:04)
[2021-11-08] MEDS: DOCUSATE SODIUM 100 MG (COLACE) CAP PO SCH ×2 (08:58→20:04)
[2021-11-08] MEDS ORDERED: CEFEPIME INJECTION 2,000 MG in NS (IVPB) 50 ML IV SCH (09:00)
[2021-11-08] MEDS ORDERED: INSU100I14 SQ (10:04)
[2021-11-08] MEDS ORDERED: OXYC1TAB11 PO (10:04)
[2021-11-08] MEDS ORDERED: AMLO2.5T4 PO (10:04)
[2021-11-08] MEDS ORDERED: INSU100I29 SQ (10:04)
[2021-11-08] MEDS ORDERED: LISI20TA26 PO ×2 (10:04→11:09)
[2021-11-08] MEDS ORDERED: GLIM4TAB5 PO (10:04)
[2021-11-08] MEDS ORDERED: IPRA3AMP31 IH (10:04)
--- NOTE | 2021-11-08 10:21 | Physical Therapy Evaluation ---
PT Evaluation-General Medical Diagnosis Admission Date Nov 07, 2021 at 21:09 Medical Diagnosis: pneumonia Onset Date: Nov 07, 2021 Therapy Diagnosis Therapy Diagnosis: impaired mobility Height/Weight Height (Feet): 6 Height (Inches): 4.00 Weight (Pounds): 203 Weight (Ounces): 5.0 Precautions Precautions/Isolations: Standard Precautions Weight Bear Status Right Lower Extremity: Right Weight Bearing/Tolerated Left Lower Extremity: Left Weight Bearing/Tolerated Referral Physician: Danielle Tirado DO Reason for Referral: Evaluation/Treatment Medical History Pertinent Medical History: Arthritis, DM, Smoking Additional Medical History Past Medical History Surgery/Hospitalization HX: pneumonia in june Surgeries: Yes (BILAT TKR, BMT, HERNIA X2;CATARACTS;THUMB SURGERY;L NEPHRECTOMY;LUNG BX) Abdominal, Ear Surgery, Eye Surgery, Gallbladder, Joint Replacement, Nephrectomy, Orthopedic Respiratory: Yes (LUNG BIOPSY/PNEUMOTHORAX; LUNG CANCER) Pneumonia, Chronic Bronchitis Currently Using CPAP: No Currently Using BIPAP: No Cardiac: Yes Hypertension, Rheumatic Fever Neurological: No Reproductive Disorders: No HIV/AIDS: No Genitourinary: Yes (RENAL CANCER--LEFT NEPHRECTOMY) Gastrointestinal: Yes Chronic Diarrhea, Polyps Musculoskeletal: Yes (FX L LEG,CLAVICLE,RIBS,FOOT; KNEE SX/SCREWS;OSTEOARTHRITIS KNEES/BILAT TKR) Degenerate Disk Disease, Arthritis, Chronic Back Pain, Fractures Endocrine: Yes (INSULIN + ORAL MEDICATIONS) Diabetes, Insulin dep HEENT: Yes (GLASSES, PARTIAL ) Cataract Loss of Vision: Denies Hearing Impairment: Hard of Hearing Cancer: Yes (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) Lung, Kidney Did You Recieve Any Treatments: Yes What Type of Treatment Did You: Chemotherapy, Surgical Intervention Psychosocial: No Integumentary: No Blood Disorders: No Adverse Reaction/Blood Tranf: No (N/A) Reviewed History: Yes Social History Home: Single Level Current Living Status: Spouse Entry Into Home: Stairs With Railing PT Steps Into Home: 4 Prior Prior Level of Function SCALE: Activities may be completed with or without assistive devices. 4-Inofzydvaw-qacsieg completes the activity by him/herself with no assistance from a helper. 5-Set-up or Clean-up Assistance-helper sets up or cleans up; patient completes activity. [place] assists only prior to or following the activity. 4-Supervision or Touching Assistance-helper provides verbal cues and/or touching/steadying and/or contact guard assistance as patient completes activity. Assistance may be provided throughout the activity or intermittently. 3-Partial/Moderate Assistance-helper does LESS THAN HALF the effort. [place] l ifts, holds or supports trunk or limbs, but provides less than half the effort. 2-Substantial/Maximal Assistance-helper does MORE THAN HALF the effort. [place] lifts or holds trunk or limbs and provides more than half the effort. 7-Vvtxtmppo-pmnbrn does ALL the effort. Patient does none of the effort to complete the activity. Or, the assistance of 2 or more helpers is required for t he patient to complete the activity. If activity was not attempted, code reason: 7-Patient Refused. 9-Not Applicable-not attempted and the patient did not perform the activity before the current illness, exacerbation or injury. 10-Not Attempted due to Environmental Limitations-(lack of equipment, weather restraints, etc.). 88-Not Attempted due to Medical Conditions or Safety Concerns. Bed Mobility: 6 Transfers (B,C,W/C): 6 Gait: 6 Stairs: 6 Indoor Mobility (Ambulation): Independent Stairs: Independent PT Evaluation-Current Subjective Patient in bed pre tx, agrees to PT, has unrated pain in chest (patient states from the pneumonia). Nurse states patient has to keep his bipap on. Pt/Family Goals none stated Objective Patient Orientation: Person, Place, Situation Attachments: Oxygen, Valente Catheter, IV ROM/Strength ROM Lower Extremities WNL Strength Lower Extremities LLE (hip flexion 4+/5, knee flexion 5/5, knee extension 5/5, dorsiflexion 5/5), RLE (hip flexion 4+/5, knee flexion 5/5, knee extension 5/5, dorsiflexion 5/5) Sensory Hearing: Functional Sensation Right Lower Extremit: Intact Sensation Left Lower Extremity: Intact Transfers Roll Left to Right (QC): 6 Sit to Lying (QC): 6 Lying to Sitting/Side of Bed(Q: 4 Sit to Stand (QC): 4 Gait Does the Patient Walk?: Yes Mode of Locomotion: Walk Anticipated Mode of Locomotion: Walk Gait Assistive Device: None Comments/Gait Description After standing patient was able to take a couple of sidesteps to the head of the bed but couldn't so any more movement than that because of being limited by his lines (bipap, IV, etc.) Balance Sitting Static: Normal Sitting Dynamic: Normal Standing Static: Normal Standing Dynamic: Normal Treatment BLE supine exercises x20 (AP, HS) Assessment/Needs Patient in bed post tx with nurse call, phone, tray, all needs met. Patient just needs SBA for supine to sit and to stand, once he has less lines or is off the bipap he will be able to get out of bed and ambulate or transfer to recliner. Rehab Potential: Fair PT [facility] Goals Rectification Printer Goals PT [facility] Goals Time Frame: Nov 15, 2021 Roll Left & Right (QC): 6 Sit to Lying (QC): 6 Lying-Sitting on Side/Bed(QC): 6 Sit to Stand (QC): 6 Chair/Fdj-nb-Ccwnh Xfer(QC): 6 Walk 10 feet (QC): 6 Walk 50ft with 2 Turns (QC): 6 Walk 150 ft (QC): 6 PT Plan Problem List Problem List: Activity Tolerance, Functional Strength, Safety, Balance, Gait, Transfer, Bed Mobility, ROM Treatment/Plan Treatment Plan: Continue Plan of Care Treatment Plan: Bed Mobility, Education, Functional Activity Deshawn, Functional Strength, Gait, Safety, Therapeutic Exercise, Transfers Treatment Duration: Nov 15, 2021 Frequency: 6 times per week Estimated Hrs Per Day: .25 hour per day Patient and/or Family Agrees t: Yes Safety Risks/Education Patient Education: Correct Positioning, Safety Issues Teaching Recipient: Patient Teaching Methods: Demonstration, Discussion Response to Teaching: Reinforcement Needed Discharge Recommendations Plan Patient will perform bed mobility and transfer training, balance and endurance training, functional strengthening ,stair training, gait training, and education, to improve functional mobility and independence at home Therapy Discharge Recommendati: Home & Family, Post Acute PT Time/GCodes Time In: 915 Time Out: 927 Total Billed Treatment Time: 12 Total Billed Treatment 1 visit JHONATAN TINOCO PT Nov 08, 2021 10:21
--- NOTE | 2021-11-08 10:38 | Occupational Therapy Eval ---
OT Evaluation-General/PLF Medical Diagnosis Admission Date Nov 07, 2021 at 21:09 Medical Diagnosis: pneumonia Onset Date: Nov 07, 2021 Therapy Diagnosis Therapy Diagnosis: reduced endurance, adl status Height/Weight Height (Feet): 6 Height (Inches): 4.00 Weight (Pounds): 203 Weight (Ounces): 5.0 Precautions Precautions/Isolations: Fall Prevention, Standard Precautions Referral Physician: Danielle Tirado DO Referral Reason: Evaluation/Treatment Medical History Pertinent Medical History: Arthritis, DM, HTN, Smoking Additional Medical History metastatic renal cell carcinoma to the lung, s/p nephrectomy, smoker, requires 2L oxygen at night Current History Pt presents to ER with SOB, chest pain, fever, and cough. Found to have pneumonia. Per patient, he lives a friend in a single story home. He was indep with adls and iadls. 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 He does not use any AD at baseline and he wears 2L O2 NC at night. Reviewed History: Yes Social History Home: Single Level Current Living Status: Friend Entry Into Home: Stairs With Railing Steps Into Home: 4 ADL-Prior Level of Function SCALE: Activities may be completed with or without assistive devices. 0-Lndtsmnodd-pdboubv completes the activity by him/herself with no assistance from a helper. 5-Set-up or Clean-up Assistance-helper sets up or cleans up; patient completes activity. [place] assists only prior to or following the activity. 4-Supervision or Touching Assistance-helper provides verbal cues and/or touching/steadying and/or contact guard assistance as patient completes activity. Assistance may be provided throughout the activity or intermittently. 3-Partial/Moderate Assistance-helper does LESS THAN HALF the effort. [place] lifts, holds or supports trunk or limbs, but provides less than half the effort. 2-Substantial/Maximal Assistance-helper does MORE THAN HALF the effort. [place] lifts or holds trunk or limbs and provides more than half the effort. 0-Ghspywmvm-hleudk does ALL the effort. Patient does none of the effort to complete the activity. Or, the assistance of 2 or more helpers is required for the patient to complete the activity. If activity was not attempted, code reason: 7-Patient Refused. 9-Not Applicable-not attempted and the patient did not perform the activity before the current illness, exacerbation or injury. 10-Not Attempted due to Environmental Limitations-(lack of equipment, weather restraints, etc.). 88-Not Attempted due to Medical Conditions or Safety Concerns. Self Care: Independent Functional Cognition: Independent Drive Self: Yes OT Current Status Subjective Pt denies pain, agreeable to treatment. Appearance Pt returned to supine in bed, all needs within reach Mental Status/Objective Patient Orientation: Person, Place, Situation Attachments: Valente Catheter, IV, Oxygen, Telemetry Current Hand Dominance: Right Upper Extremity ROM WNL Upper Extremity Strength 4/5 throughout ADL-Treatment On/Off Footwear (QC): 3 Assessment limited by multiple lines/tubes. RN requests pt stay on BiPap. Supine<>sit: SBA. Good sitting balance EOB. Min a needed to don R sock, however pt had difficulty bending due to limited length of multiple lines. Pt may do better when lines/tubes are removed. He stood with SBA and took 2-3 steps towards HOB with close supervision. Further assessment needed to determine warranty of OT services. Education OT Patient Education: Correct positioning, Purpose of tx/functional activities, Safety issues, Transfer techniques Teaching Recipient: Patient Teaching Methods: Discussion Response to Teaching: Verbalize Understanding, Reinforcement Needed OT Custodial Goals Custodial Goals Time Frame: Nov 22, 2021 Eating (QC): 5 Oral Hygiene (QC): 5 Toileting Hygiene (QC): 4 Lower Body Dressing (QC): 4 On/Off Footwear (QC): 4 1=Demonstrate adherence to instructed precautions during ADL tasks. 2=Patient will verbalize/demonstrate understanding of assistive devices/modifications for ADL. 3=Patient will improve strength/tolerance for activity to enable patient to perform ADL's. OT Education/Plan Problem List/Assessment Assessment: Decreased Activ Tolerance, Impaired Funct Balance, Impaired I ADL's, Impaired Self-Care Skills Discharge Recommendations Plan/Recommendations: Continue POC Target Placement ongoing assessment needed Treatment Plan/Plan of Care Treatment,Training & Education: Yes Patient would benefit from OT for education, treatment and training to promote independence in ADL's, mobility, safety and/or upper extremity function for ADL's. Plan of Care: ADL Retraining, Functional Mobility, Group Exercise/Act as Ind, UE Funct Exercise/Act Treatment Duration: Nov 22, 2021 Frequency: 3 times per week (3-5x/week) Estimated Hrs Per Day: .25 hour per day Agreement: Yes Rehab Potential: Fair Time/GCodes Start Time: 09:17 Stop Time: :29 Total Time Billed (hr/min): 12 Billed Treatment Time 1 visit Luisa Hernandez OT Nov 08, 2021 10:37
[2021-11-08] MEDS: HYDROcodone/APAP 5 MG/325 MG (LORTAB) TAB PO PRN ×2 (11:51→23:49)
[2021-11-08] MEDS: morphine INJ 4 MG/ML 1 ML (VIAL/SYRINGE) IV PRN ×2 (12:34→16:45)
[2021-11-08] MEDS: ONDANSETRON 4 MG/2 ML (SDV) Z0FRAN IV PRN ×2 (12:36→19:57)
[2021-11-08] MEDS: ACETAMINOPHEN 325 MG TABLET PO PRN (16:24)
--- NOTE | 2021-11-08 16:26 | History & Physical-Hospitalist ---
History of Present Illness HPI/Chief Complaint Paul Mejía is a 66 year old male with PMH renal cell carcinoma with metastasis to the lung s/p nephrectomy currently on chemotherapy, COPD on continuous oxygen, T2DM, tobacco abuse, who presented with shortness of breath. He also reports fever. He has had a cough. He reports left sided chest pain. He denies abdominal pain, nausea, vomiting, diarrhea. Source: patient Exam Limitations: no limitations Date Seen 11/08/21 Time Seen by a Provider: 09:30 Attending Physician Sha Clayton MD PCP Admitting Physician: Danielle Tirado DO Attending Physician: Danielle Tirado DO Referring Physician Date of Admission Nov 07, 2021 at 21:09 Home Medications & Allergies Home Medications Reviewed patient Home Medication Reconciliation performed by pharmacy medication reconciliations driver license technician and/or nursing. Patients Allergies have been reviewed. Allergies Allergies Coded Allergies meperidine (Verified Allergy, Mild, RASH, Pt has received Fentanyl w/o issue, 12/15/18) Past Dtrlyxy-Vlzmvd-Nxdfok Hx Patient Social History Tobacco Use?: Yes Tobacco type used: Cigarettes Smoking Status: Current Someday Smoker Use of E-Cig and/or Vaping dev: No Substance use?: No Alcohol Use?: No Pt feels they are or have been: No Immunizations Up To Date Date of Influenza Vaccine: Mar 03, 2018 First/Initial COVID19 Vaccinat: MAY 2021 Second COVID19 Vaccination Sal: JUNE 2021 Tetanus Booster (TDap): Unknown Date of Pneumonia Vaccine: Sep 08, 2014 Seasonal Allergies Seasonal Allergies: No Current Status Advance Directives: No Communicates: Verbally Primary Language: Yi Preferred Spoken Language: Yi Is interpretation needed?: No Sensory deficits: Vision impairment Implanted or Applied Medical D: Orthopedic hardware Past Medical History Surgeries: Abdominal, Ear Surgery, Eye Surgery, Gallbladder, Joint Replacement, Nephrectomy, Orthopedic Pneumonia, Chronic Bronchitis Currently Using CPAP: No Currently Using BIPAP: No Hypertension, Rheumatic Fever HIV/AIDS: No Chronic Diarrhea, Polyps Degenerate Disk Disease, Arthritis, Chronic Back Pain, Fractures Diabetes, Insulin dep Cataract Loss of Vision: Denies Hearing Impairment: Hard of Hearing Lung, Kidney Did You Recieve Any Treatments: Yes What Type of Treatment Did You: Chemotherapy, Surgical Intervention Blood Disorders: No Adverse Reaction/Blood Tranf: No (N/A) Family Medical History Diabetes mellitus 19 FATHER 19 MOTHER G8 BROTHER FH: skin cancer 19 MOTHER Family history: Arthritis Family history: Coronary thrombosis Family history: Diabetes mellitus History of - respiratory disease No Family History of: Abdominal aortic aneurysm [place]'s disease Alcoholism Aphasia Cancer Cancer of colon Cataract Chest pain Congenital heart disease Congestive heart failure Cystic fibrosis Dementia Dysphagia Family history: Allergy Family history: Alzheimer's disease Family history: Asthma Family history: Breast disease Family history: Cardiovascular disease Family history: Gastrointestinal disease Family history: Glaucoma Family history: Hypertension Family history: Osteoporosis Family history: Thyroid disorder Headache Hearing loss Heart disease Hereditary disease History of - anemia History of - disorder History of drug abuse Human immunodeficiency virus (HIV) seropositivity Hypercholesterolemia Infertile Kidney disease Malignant neoplasm of lung Myocardial infarction Parkinson's disease Prostate cancer Psychotic disorder Seizure disorder Stroke Tuberculosis Visual impairment No Pertinent Family Hx SOCIAL HISTORY: -ETOH--DENIES USE -SMOKES 1 PPD -DRUGS--DENIES USE PSH: -HERNIA REPAIR X 2 -BILATERAL MYRINGOTOMY TUBES -CARPAL TUNNEL SURGERY -BILATERAL CATARACT SURGERY -SCREWS IN KNEE AND LATER REMOVED -BILATERAL KNEE REPLACEMENTS 2013 -LEFT NEPHRECTOMY FOR CANCER 2013 -LUNG BIOPSY WITH PNEUMOTHORAX Review of Systems Constitutional: fever EENTM: no symptoms reported Respiratory: cough, phlegm, short of breath Cardiovascular: chest pain Gastrointestinal: no symptoms reported Genitourinary: no symptoms reported Musculoskeletal: no symptoms reported Skin: no symptoms reported Psychiatric/Neurological: No Symptoms Reported Physical Exam Physical Exam Vital Signs Vital Signs - First Documented 11/07/21 11/07/21 20:00 23:59 Temp 39.3 Pulse 118 Resp 24 B/P (MAP) 111/57 (75) Pulse Ox 86 O2 Delivery Room Air O2 Flow Rate 3.00 FiO2 28 Capillary Refill : Less Than 3 Seconds Height, Weight, BMI Height: 6'4.00" Weight: 203lbs. 5.0oz. [id number]; 22.63 BMI Method:Stated General Appearance: No Apparent Distress, WD/WN HEENT: PERRL/EOMI, Pharynx Normal Neck: Normal Inspection, Supple Respiratory: No Chest Non Tender; No Respiratory Distress, Decreased Breath Sounds Cardiovascular: No Murmur, Bradycardia Gastrointestinal: Normal Bowel Sounds, Non Tender, Soft Extremity: Normal Inspection, Non Tender, No Pedal Edema Neurologic/Psychiatric: Alert, Oriented x3, No Motor/Sensory Deficits Skin: Normal Color, Warm/Dry Results Results/Procedures Labs Laboratory Tests 11/07/21 20:05 11/08/21 04:35 Patient resulted labs reviewed. Imaging: Reviewed Imaging Films, Reviewed Imaging Report Assessment/Plan Admission Diagnosis Severe sepsis due to pneumonia Admission Status: Inpatient Order (span 2 midnights) Reason for Inpatient Admission: IV antibiotics Assessment and Plan Severe sepsis due to pneumonia Acute on chronic respiratory failure with hypoxia and hypercapnia SIRS+ with fever and leukocytosis CXR consistent with left lower lobe pneumonia Started on Vancomycin and Cefepime IV fluids Required BiPAP overnight Supplemental oxygen as needed T2DM Sliding scale insulin COPD Tobacco abuse Continue home meds Nicotine patch Renal cell carcinoma with mets to the lung Currently on chemotherapy following with Dr. Mcneil DVT prophylaxis: Heparin Diagnosis/Problems Diagnosis/Problems (1) Severe sepsis Status: Acute (2) PNA (pneumonia) Onset Date: ~ 07/08/2021 Status: Acute (3) Acute kidney injury superimposed on chronic kidney disease Onset Date: ~ 07/08/2021 Status: Acute (4) 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 (5) Acute respiratory failure with hypoxia and hypercapnia Status: Acute (6) T2DM (type 2 diabetes mellitus) Status: Chronic Clinical Quality Measures AMI/AHF: ASA po Prior to arrival: Yes Smoking Cessation Counseling: Counseling-Symptomatic: 3-10 Minutes Discussed Options Including: Nicotine Patch SHAKA THOMAS MD Nov 08, 2021 16:26
[2021-11-08] MEDS ORDERED: RT-ALBUTEROL/IPRATROPIUM 3 ML (DUONEB) VIAL ONE (18:53)
[2021-11-08] MEDS ORDERED: VANCOMYCIN 1 GM/NS 250 ML IVPB IV SCH ×2 (19:30)
[2021-11-09 05:12] LABS: BASOPHILS % (AUTO) 0 % (0-10); EOSINOPHILS # (AUTO) 0.2 10^3/uL (0.0-0.3); EOSINOPHILS % (AUTO) 1 % (0-10); HEMATOCRIT 32 % (40-54); LYMPHOCYTES # (AUTO) 1.5 10^3/uL (1.0-4.0); LYMPHOCYTES % (AUTO) 8 % (12-44); MEAN CORPUSCULAR HEMOGLOBIN 30 pg (25-34); MEAN CORPUSCULAR HGB CONC 32 g/dL (32-36); MEAN CORPUSCULAR VOLUME 94 fL (80-99); MEAN PLATELET VOLUME 10.4 fL (9.0-12.2); MONOCYTES # (AUTO) 1.6 10^3/uL (0.0-1.0); MONOCYTES % (AUTO) 8 % (0-12); NEUTROPHILS % (AUTO) 82 % (42-75); PLATELET COUNT 164 10^3/uL (130-400); WHITE BLOOD COUNT 19.6 10^3/uL (4.3-11.0)
[2021-11-09 05:25] LABS: ALBUMIN 2.7 GM/DL (3.2-4.5); POTASSIUM 4.3 MMOL/L (3.6-5.0)
[2021-11-09 05:27] LABS: CALCIUM 7.7 MG/DL (8.5-10.1)
[2021-11-09 05:28] LABS: TOTAL PROTEIN 4.9 GM/DL (6.4-8.2)
[2021-11-09] MEDS: POTASSIUM CL 10MEQ/50ML IVPB 50 ML IV SCH (05:28)
[2021-11-09] MEDS: KCL 20 MEQ TAB (K-DUR) PO SCH (05:28)
[2021-11-09] MEDS: inSUlin ASPART (NovoLOG) 1 UNIT/0.01 ML (CHARGE PER UNIT) SC SCH ×4 (05:29→20:35)
[2021-11-09 05:30] LABS: BILIRUBIN,TOTAL 0.3 MG/DL (0.1-1.0)
[2021-11-09 05:31] LABS: CREATININE SERUM 1.33 MG/DL (0.60-1.30)
[2021-11-09] MEDS: MAGNESIUM 1 GM/100 ML IVPB 100 ML IV SCH (05:52)
[2021-11-09] MEDS: CEFEPIME 1,000 MG/NS 50 ML IVPB IV SCH ×8 (05:58→23:49)
[2021-11-09] MEDS: RT-ALBUTEROL/IPRATROPIUM 3 ML (DUONEB) VIAL INH SCH ×3 (07:26→21:56)
[2021-11-09] MEDS: NOREPINEPHRINE 8 MG/250 ML 250 ML IV SCH (09:18)
[2021-11-09] MEDS: DOCUSATE SODIUM 100 MG (COLACE) CAP PO SCH ×2 (09:19→20:29)
[2021-11-09] MEDS: SENNOSIDES 8.6 MG (SENOKOT) TAB PO SCH ×2 (09:19→20:30)
[2021-11-09] MEDS: ACETAMINOPHEN 325 MG TABLET PO PRN (09:19)
--- NOTE | 2021-11-09 09:23 | Physical Therapy Daily Note ---
PT Daily Note-Current Subjective Patient in bed pre tx, agrees to PT, has 5/10 pain in his chest. Appearance Patient in bed post tx with nurse call, phone, tray, all needs met. Mental Status Patient Orientation: Person, Place, Situation Attachments: Oxygen, IV Transfers SCALE: Activities may be completed with or without assistive devices. 3-Cyezfemaut-cxhzqxc completes the activity by him/herself with no assistance from a helper. 5-Set-up or Clean-up Assistance-helper sets up or cleans up; patient completes activity. [place] assists only prior to or following the activity. 4-Supervision or Touching Assistance-helper provides verbal cues and/or touching/steadying and/or contact guard assistance as patient completes activity. Assistance may be provided throughout the activity or intermittently. 3-Partial/Moderate Assistance-helper does LESS THAN HALF the effort. [place] lifts, holds or supports trunk or limbs, but provides less than half the effort. 2-Substantial/Maximal Assistance-helper does MORE THAN HALF the effort. [place] lifts or holds trunk or limbs and provides more than half the effort. 5-Scurewicq-fxajgi does ALL the effort. Patient does none of the effort to complete the activity. Or, the assistance of 2 or more helpers is required for the patient to complete the activity. If activity was not attempted, code reason: 7-Patient Refused. 9-Not Applicable-not attempted and the patient did not perform the activity before the current illness, exacerbation or injury. 10-Not Attempted due to Environmental Limitations-(lack of equipment, weather restraints, etc.). 88-Not Attempted due to Medical Conditions or Safety Concerns. Roll Left & Right (QC): 6 Sit to Lying (QC): 6 Lying to Sitting/Side of Bed(Q: 6 Sit to Stand (QC): 4 Weight Bearing Right Lower Extremity: Right Weight Bearing/Tolerated Left Lower Extremity: Left Weight Bearing/Tolerated Gait Training Distance: 40' Walk 10 feet (QC): 4 Gait Persons Needed: 1 Gait Assistive Device: FWW slow ambulation, slightly unsteady Exercises Standing: Marching, Mini squats Standing Reps: 10 Treatments bed mobility and transfers, ambulation, LE strengthening Assessment Current Status: Fair Progress O2 drops to 88% with activity but comes back up to 90% shortly with rest PT Detention Goals Detention Goals PT Detention Goals Time Frame: Nov 15, 2021 Roll Left & Right (QC): 6 Sit to Lying (QC): 6 Lying-Sitting on Side/Bed(QC): 6 Sit to Stand (QC): 6 Chair/Eez-ck-Gjkoz Xfer(QC): 6 Walk 10 feet (QC): 6 Walk 50ft with 2 Turns (QC): 6 Walk 150 ft (QC): 6 PT Plan Problem List Problem List: Activity Tolerance, Functional Strength, Safety, Balance, Gait, Transfer, Bed Mobility, ROM Treatment/Plan Treatment Plan: Continue Plan of Care Treatment Plan: Bed Mobility, Education, Functional Activity Deshawn, Functional Strength, Gait, Safety, Therapeutic Exercise, Transfers Treatment Duration: Nov 15, 2021 Frequency: 6 times per week Estimated Hrs Per Day: .25 hour per day Patient and/or Family Agrees t: Yes Safety Risks/Education Patient Education: Gait Training, Transfer Techniques, Correct Positioning, Safety Issues Teaching Recipient: Patient Teaching Methods: Demonstration, Discussion Response to Teaching: Reinforcement Needed Time/GCodes Time In: 0859 Time Out: 09 Total Billed Treatment Time: 10 Total Billed Treatment 1 visit FA JHONATAN SALES PT Nov 09, 2021 09:23
[2021-11-09] MEDS: NS IV 1000 ML 1,000 ML IV SCH ×2 (10:57→23:48)
--- NOTE | 2021-11-09 11:22 | Occupational Ther Daily Note ---
OT Current Status-Daily Note Subjective Pt alert, sitting in recliner. Pt agrees to therapy. Pt states that he can't wait to get to the other floor so he can take a shower and brush his teeth. Mental Status/Objective Patient Orientation: Person, Place, Time, Situation Attachments: IV, Oxygen, Telemetry ADL-Treatment After supplies gathered, pt able to complete oral care by self. Pt then set up with warm washclothes to complete sponge bath. Pt complete upper body and rola area while sitting in recliner. Assist to don hospital gown due to tubing. After therapy, pt sitting in therapy with call light/phone in reach. All needs met. Therapy Code Descriptions/Definitions Functional [place] Measure: 0=Not Assessed/NA 4=Minimal Assistance 1=Total Assistance 5=Supervision or Setup 2=Maximal Assistance 6=Modified [place] 3=Moderate Assistance 7=Complete IndependenceSCALE: Activities may be completed with or without assistive devices. 9-Tqgklsknbg-pfjiynt completes the activity by him/herself with no assistance from a helper. 5-Set-up or Clean-up Assistance-helper sets up or cleans up; patient completes activity. [place] assists only prior to or following the activity. 4-Supervision or Touching Assistance-helper provides verbal cues and/or touching/steadying and/or contact guard assistance as patient completes activity. Assistance may be provided throughout the activity or intermittently. 3-Partial/Moderate Assistance-helper does LESS THAN HALF the effort. [place] lifts, holds or supports trunk or limbs, but provides less than half the effort. 2-Substantial/Maximal Assistance-helper does MORE THAN HALF the effort. [place] lifts or holds trunk or limbs and provides more than half the effort. 4-Gqiohffjq-xptmfq does ALL the effort. Patient does none of the effort to complete the activity. Or, the assistance of 2 or more helpers is required for the patient to complete the activity. If activity was not attempted, code reason: 7-Patient Refused. 9-Not Applicable-not attempted and the patient did not perform the activity before the current illness, exacerbation or injury. 10-Not Attempted due to Environmental Limitations-(lack of equipment, weather restraints, etc.). 88-Not Attempted due to Medical Conditions or Safety Concerns. Oral Hygiene (QC): 5 OT Mcfp Goals Mcfp Goals Time Frame: Nov 22, 2021 Eating (QC): 5 Oral Hygiene (QC): 5 Toileting Hygiene (QC): 4 Lower Body Dressing (QC): 4 On/Off Footwear (QC): 4 1=Demonstrate adherence to instructed precautions during ADL tasks. 2=Patient will verbalize/demonstrate understanding of assistive devices/modifications for ADL. 3=Patient will improve strength/tolerance for activity to enable patient to perform ADL's. OT Education/Plan Problem List/Assessment Assessment: Decreased Activ Tolerance, Decreased UE Strength, Impaired Self- Care Skills Discharge Recommendations Plan/Recommendations: Continue POC Treatment Plan/Plan of Care Patient would benefit from OT for education, treatment and training to promote independence in ADL's, mobility, safety and/or upper extremity function for ADL's. Plan of Care: ADL Retraining, Functional Mobility, Group Exercise/Act as Ind, UE Funct Exercise/Act Treatment Duration: Nov 22, 2021 Frequency: 3 times per week Estimated Hrs Per Day: .25 hour per day Agreement: Yes Rehab Potential: Fair Time/GCodes Start Time: 10:41 Stop Time: 10:56 Total Time Billed (hr/min): 15 Billed Treatment Time 1 visit-ADL 1 (15 min) SUSAN COX Nov 09, 2021 11:22
--- NOTE | 2021-11-09 11:28 | Tele-ICU Progress Note ---
Subjective Date Seen by a Provider: Nov 09, 2021 Time Seen by a Provider: 11:28 Subjective/Events-last exam (Tele-ICU Physician , Progress Note ) Available chart/ vitals / labs / Images reviewed Video assessment done using teleICU camera, rest of exam as per RN Discussed with RN , EXAM PER RN Events overnight : Afebrile FiO2 - 5 I/O = pos 3l Drips: NS 100 Pressors: OFF , hemodynamically stable Consultants: Hospital course: A/P Acute hypercapnic respiratory failure - was on BIPAP ( also with met acidpsis - on NC 5 l - doing well Severe CAP -. Continue Abx, follow cultures septic shock - resoolved Strep viridance on blood cx - from central line just placed , neg peripheral - most likely contamminant - will repeat cx MARÍA ( single kidney ) - improving Anemia - delutional COPD -on continuous oxygen DM II -ISS renal cell carcinoma with metastasis to the lung s/p nephrectomy currently on chemotherapy Lines : r IJ 11/08 (Central Line Necessity Reviewed) VTE Prophylaxis: hep sq Stress Ulcer Prophylaxis: na Plans in collaboration with bedside consultants and IM MDs. Discussed with RN to reach out if any questions or concerns A total of 31 minutes of critical care time was devoted to this patient today, required to treat and/or prevent further deterioration of critical care condition ( as above) . Sepsis Event Evaluation Height, Weight, BMI Height: 6'4.00" Weight: 203lbs. 5.0oz. [id number]; 22.63 BMI Method:Stated Focused Exam Lactate Level 11/07/21 20:05: Lactic Acid Level 0.98 Time of Focused Exam: 21:05 Exam Exam Patient acknowledged, consented, and participated in this virtual visit which was conducted using real time audio/video Vital Signs Date Time Temp Pulse Resp B/P (MAP) Pulse Ox O2 Delivery O2 Flow Rate FiO2 11/09/21 11:00 64 23 104/56 93 High Flow N/C 5.00 11/09/21 10:00 67 21 114/54 93 High Flow N/C 5.00 11/09/21 09:47 High Flow N/C 5.00 11/09/21 09:18 72 114/51 11/09/21 09:00 68 20 121/54 92 OxyMask 5.00 11/09/21 08:00 80 23 104/51 90 OxyMask 5.00 11/09/21 07:59 36.7 11/09/21 07:26 90 High Flow N/C 5.00 11/09/21 07:00 67 20 118/62 90 OxyMask 5.00 11/09/21 07:00 71 11/09/21 06:00 75 21 123/62 93 OxyMask 5.00 11/09/21 05:00 69 22 109/50 93 OxyMask 5.00 11/09/21 04:00 68 20 108/46 95 OxyMask 5.00 11/09/21 04:00 95 Simple Mask 5.00 11/09/21 03:59 37.3 11/09/21 03:00 75 20 122/57 93 OxyMask 5.00 11/09/21 02:21 92 OxyMask 5.00 11/09/21 02:20 OxyMask 5.00 11/09/21 02:00 87 12 128/70 90 Nasal Cannula 2.00 11/09/21 01:00 82 11/09/21 01:00 82 22 94/57 90 Nasal Cannula 2.00 11/09/21 00:00 81 17 103/45 90 Nasal Cannula 2.00 11/08/21 23:59 91 Nasal Cannula 2.00 11/08/21 23:52 37.3 11/08/21 23:00 77 17 118/78 92 Nasal Cannula 2.00 11/08/21 22:02 90 High Flow N/C 2.00 11/08/21 22:00 67 22 123/38 91 Nasal Cannula 2.00 11/08/21 21:00 76 22 109/55 91 Nasal Cannula 2.00 11/08/21 20:00 92 Nasal Cannula 2.00 11/08/21 20:00 67 22 113/53 90 Nasal Cannula 2.00 11/08/21 19:19 37.0 11/08/21 19:00 43 23 120/64 90 Nasal Cannula 2.00 11/08/21 19:00 80 11/08/21 18:51 37.4 11/08/21 18:00 76 25 97/53 95 NIV Bilevel 30.00 11/08/21 17:06 38.1 11/08/21 17:05 NIV Bilevel 30.00 11/08/21 17:04 38.1 6/8/22 17:00 85 15 93/87 93 NIV Bilevel 30.00 11/08/21 16:47 37.7 11/08/21 16:24 37.5 11/08/21 16:23 37.5 11/08/21 16:00 91 22 131/69 98 Nasal Cannula 2.00 11/08/21 16:00 92 Nasal Cannula 2.00 11/08/21 15:19 97 High Flow N/C 2.00 11/08/21 15:00 66 17 88/52 96 Nasal Cannula 2.00 11/08/21 14:00 70 23 94/55 90 Nasal Cannula 2.00 11/08/21 13:00 75 11/08/21 13:00 70 13 98/51 96 Nasal Cannula 2.00 11/08/21 12:46 94 Nasal Cannula 2.00 11/08/21 12:00 36.6 11/08/21 12:00 67 23 116/56 97 Nasal Cannula 2.00 I & O 11/09/21 07:00 Intake Total 4230 ml Output Total 1600 ml Balance 2630 ml Height & Weight Height: 6'4.00" Weight: 203lbs. 5.0oz. [id number]; 22.63 BMI Method:Stated General Appearance: No Apparent Distress, WD/WN HEENT: PERRL/EOMI, Pharynx Normal Neck: Normal Inspection, Supple Respiratory: No Chest Non Tender; No Respiratory Distress, Decreased Breath Sounds Cardiovascular: No Murmur, Bradycardia Capillary Refill: Less Than 3 Seconds Peripheral Pulses: 2+ Radial Pulses (R), 2+ Radial Pulses (L) Extremity: Normal Inspection, Non Tender, No Pedal Edema Neurologic/Psychiatric: Alert, Oriented x3, No Motor/Sensory Deficits Skin: Normal Color, Warm/Dry Results Lab Laboratory Tests 11/07/21 20:05 11/08/21 04:35 11/09/21 05:00 Assessment/Plan Assessment/Plan ` LISA LADD MD Nov 09, 2021 11:28
--- NOTE | 2021-11-09 16:24 | Progress Note - Hospitalist ---
Subjective HPI/CC On Admission Date Seen by Provider: Nov 09, 2021 Time Seen by Provider: 10:35 Paul Mejía is a 66 year old male with PMH renal cell carcinoma with metastasis to the lung s/p nephrectomy currently on chemotherapy, COPD on continuous oxygen, T2DM, tobacco abuse, who presented with shortness of breath. He also reports fever. He has had a cough. He reports left sided chest pain. He denies abdominal pain, nausea, vomiting, diarrhea. Subjective/Events-last exam He is sitting in his chair. He is feeling better. He denies shortness of breath. Focused Exam Lactate Level 11/07/21 20:05: Lactic Acid Level 0.98 Time of Focused Exam: 21:05 Objective Exam Vital Signs Vital Signs Date Time Temp Pulse Resp B/P (MAP) Pulse Ox O2 Delivery O2 Flow Rate FiO2 11/09/21 15:58 36.1 67 18 130/61 95 Nasal Cannula 3.00 11/08/21 08:00 30 Capillary Refill : Less Than 3 Seconds General Appearance: No Apparent Distress, WD/WN Respiratory: Lungs Clear, No Respiratory Distress Cardiovascular: Regular Rate, Rhythm, No Murmur Gastrointestinal: Normal Bowel Sounds, Soft Extremity: Normal Inspection, No Pedal Edema Neurologic/Psychiatric: Alert, Normal Mood/Affect Skin: Normal Color, Warm/Dry Results/Procedures Lab Laboratory Tests 11/09/21 05:00 Patient resulted labs reviewed. Imaging: Reviewed Imaging Films, Reviewed Imaging Report Assessment/Plan Assessment and Plan Assess & Plan/Chief Complaint Severe sepsis due to pneumonia Acute on chronic respiratory failure with hypoxia and hypercapnia Stop Vancomycin Continue Cefepime Continue IV fluids Supplemental oxygen as needed, near baseline T2DM Sliding scale insulin COPD Tobacco abuse Continue home meds Nicotine patch Renal cell carcinoma with mets to the lung Currently on chemotherapy following with Dr. Mcneil DVT prophylaxis: Heparin Diagnosis/Problems Diagnosis/Problems (1) Severe sepsis Status: Acute (2) PNA (pneumonia) Onset Date: ~ 07/08/2021 Status: Acute (3) Acute kidney injury superimposed on chronic kidney disease Onset Date: ~ 07/08/2021 Status: Acute (4) 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 (5) Acute respiratory failure with hypoxia and hypercapnia Status: Acute (6) T2DM (type 2 diabetes mellitus) Status: Chronic Clinical Quality Measures AMI/AHF: ASA po Prior to arrival: Yes Smoking Cessation Counseling: Counseling-Symptomatic: 3-10 Minutes Discussed Options Including: Nicotine Patch SHAKA THOMAS MD Nov 09, 2021 16:24
[2021-11-09] MEDS ORDERED: TROUGH ORDER-PHARMACY XX ONE (18:00)
[2021-11-09] MEDS: guaiFENesin/CODEINE (ROBITUSSIN AC) 10ML UDC PO PRN (20:34)
[2021-11-09] MEDS: morphine INJ 4 MG/ML 1 ML (VIAL/SYRINGE) IV PRN (21:19)
[2021-11-10] MEDS: NOREPINEPHRINE 8 MG/250 ML 250 ML IV SCH (00:31)
[2021-11-10] MEDS: ALPRAZolam 0.25 MG (XANAX) TAB PO PRN ×2 (02:14→17:00)
[2021-11-10] MEDS: guaiFENesin/CODEINE (ROBITUSSIN AC) 10ML UDC PO PRN (02:15)
[2021-11-10 05:31] LABS: BASOPHILS # (AUTO) 0.1 10^3/uL (0.0-0.1); BASOPHILS % (AUTO) 0 % (0-10); EOSINOPHILS # (AUTO) 0.1 10^3/uL (0.0-0.3); EOSINOPHILS % (AUTO) 1 % (0-10); HEMATOCRIT 33 % (40-54); HEMOGLOBIN 10.4 g/dL (13.3-17.7); LYMPHOCYTES # (AUTO) 0.8 10^3/uL (1.0-4.0); LYMPHOCYTES % (AUTO) 4 % (12-44); MEAN CORPUSCULAR HEMOGLOBIN 30 pg (25-34); MEAN CORPUSCULAR HGB CONC 31 g/dL (32-36); MEAN CORPUSCULAR VOLUME 94 fL (80-99); MEAN PLATELET VOLUME 10.5 fL (9.0-12.2); MONOCYTES # (AUTO) 1.2 10^3/uL (0.0-1.0); MONOCYTES % (AUTO) 6 % (0-12); NEUTROPHILS # (AUTO) 16.2 10^3/uL (1.8-7.8); NEUTROPHILS % (AUTO) 85 % (42-75); PLATELET COUNT 199 10^3/uL (130-400); WHITE BLOOD COUNT 19.1 10^3/uL (4.3-11.0)
[2021-11-10] MEDS: inSUlin ASPART (NovoLOG) 1 UNIT/0.01 ML (CHARGE PER UNIT) SC SCH ×3 (05:35→16:19)
[2021-11-10 06:01] LABS: ALBUMIN 2.8 GM/DL (3.2-4.5); POTASSIUM 4.8 MMOL/L (3.6-5.0)
[2021-11-10 06:03] LABS: CALCIUM 8.2 MG/DL (8.5-10.1)
[2021-11-10 06:04] LABS: TOTAL PROTEIN 5.2 GM/DL (6.4-8.2)
[2021-11-10] MEDS: POTASSIUM CL 10MEQ/50ML IVPB 50 ML IV SCH (06:05)
[2021-11-10 06:06] LABS: BILIRUBIN,TOTAL 0.3 MG/DL (0.1-1.0)
[2021-11-10] MEDS: KCL 20 MEQ TAB (K-DUR) PO SCH (06:06)
[2021-11-10 06:07] LABS: CREATININE SERUM 1.16 MG/DL (0.60-1.30)
[2021-11-10 06:10] LABS: MAGNESIUM 1.7 MG/DL (1.6-2.4)
[2021-11-10] MEDS: CEFEPIME 1,000 MG/NS 50 ML IVPB IV SCH ×4 (06:12→12:37)
[2021-11-10] MEDS: MAGNESIUM 1 GM/100 ML IVPB 100 ML IV SCH ×3 (06:15→08:04)
[2021-11-10] MEDS: RT-ALBUTEROL/IPRATROPIUM 3 ML (DUONEB) VIAL INH SCH ×2 (07:09→14:46)
[2021-11-10 07:56] VITALS: BP 118/58
[2021-11-10] MEDS: DOCUSATE SODIUM 100 MG (COLACE) CAP PO SCH (08:04)
[2021-11-10] MEDS: SENNOSIDES 8.6 MG (SENOKOT) TAB PO SCH (08:04)
--- NOTE | 2021-11-10 09:39 | Physical Therapy Daily Note ---
PT Daily Note-Current Subjective Patient agrees to PT. Mental Status Patient Orientation: Person, Time, Situation Attachments: Oxygen, IV Transfers SCALE: Activities may be completed with or without assistive devices. 5-Trtcwepgwt-znotona completes the activity by him/herself with no assistance from a helper. 5-Set-up or Clean-up Assistance-helper sets up or cleans up; patient completes activity. [place] assists only prior to or following the activity. 4-Supervision or Touching Assistance-helper provides verbal cues and/or touching/steadying and/or contact guard assistance as patient completes activity. Assistance may be provided throughout the activity or intermittently. 3-Partial/Moderate Assistance-helper does LESS THAN HALF the effort. [place] lift s, holds or supports trunk or limbs, but provides less than half the effort. 2-Substantial/Maximal Assistance-helper does MORE THAN HALF the effort. [place] lifts or holds trunk or limbs and provides more than half the effort. 9-Qleqfadid-ztlntm does ALL the effort. Patient does none of the effort to complete the activity. Or, the assistance of 2 or more helpers is required for the patient to complete the activity. If activity was not attempted, code reason: 7-Patient Refused. 9-Not Applicable-not attempted and the patient did not perform the activity before the current illness, exacerbation or injury. 10-Not Attempted due to Environmental Limitations-(lack of equipment, weather restraints, etc.). 88-Not Attempted due to Medical Conditions or Safety Concerns. Sit to Stand (QC): 6 Chair/Bzz-yb-Lurmz Xfer(QC): 6 Weight Bearing Right Lower Extremity: Right Weight Bearing/Tolerated Left Lower Extremity: Left Weight Bearing/Tolerated Gait Training Distance: 400' Walk 10 feet (QC): 6 Walk 50 ft with 2 Turns(QC): 6 Walk 150 ft (QC): 6 Gait Assistive Device: None safe and functional with no deviation Assessment Patient is up in recliner with needs met. SAO2 remains >90% with all activity on 4L O2 HF NC. PT will see patient x 1 more session to ensure patient remains at independent LOF. PT Usp Goals Billing Control Clerk Goals PT Billing Control Clerk Goals Time Frame: Nov 15, 2021 Roll Left & Right (QC): 6 Sit to Lying (QC): 6 Lying-Sitting on Side/Bed(QC): 6 Sit to Stand (QC): 6 Chair/Hrt-if-[place] Xfer(QC): 6 Walk 10 feet (QC): 6 Walk 50ft with 2 Turns (QC): 6 Walk 150 ft (QC): 6 PT Plan Treatment/Plan Treatment Plan: Continue Plan of Care Treatment Plan: Bed Mobility, Education, Functional Activity Deshawn, Functional Strength, Gait, Safety, Therapeutic Exercise, Transfers Treatment Duration: Nov 15, 2021 Frequency: 6 times per week Estimated Hrs Per Day: .25 hour per day Patient and/or Family Agrees t: Yes Time/GCodes Time In: 831 Time Out: 844 Total Billed Treatment Time: 13 Total Billed Treatment 1 visit FA 13 min SUE CONTRERAS PT Nov 10, 2021 09:39
--- NOTE | 2021-11-10 10:00 | Occupational Ther Daily Note ---
OT Current Status-Daily Note Subjective Pt sitting in recliner with breakfast on tray, pt sleeping. Pt woke to name. Pt agrees to therapy. No c/o pain. Mental Status/Objective Patient Orientation: Person, Place, Time, Situation Attachments: IV ADL-Treatment Pt unable to stay awake to eat breakfast. Pt required verbal and gestural cues to set up meal and to stay awake to eat meal. Pt was able to open containers and packages then use utensils to spread butter on bread. Pt required cues to move to next piece of bread to apply butter then stop when finished. Pt would fall asleep and cues to wake and take a bite. Pt then requested to use bathroo m. CGA for safety and to manipulate tubing to ambulate to bathroom then transfer onto toilet. Pt stated that he wanted to stay there for awhile. Reported to nrs on pt's position. Pt educated on using call light in bathroom. All needs met. Therapy Code Descriptions/Definitions Functional [place] Measure: 0=Not Assessed/NA 4=Minimal Assistance 1=Total Assistance 5=Supervision or Setup 2=Maximal Assistance 6=Modified [place] 3=Moderate Assistance 7=Complete IndependenceSCALE: Activities may be completed with or without assistive devices. 0-Zjzbubkjoh-gschfnr completes the activity by him/herself with no assistance from a helper. 5-Set-up or Clean-up Assistance-helper sets up or cleans up; patient completes activity. [place] assists only prior to or following the activity. 4-Supervision or Touching Assistance-helper provides verbal cues and/or touching/steadying and/or contact guard assistance as patient completes activity. Assistance may be provided throughout the activity or intermittently. 3-Partial/Moderate Assistance-helper does LESS THAN HALF the effort. [place] lifts, holds or supports trunk or limbs, but provides less than half the effort. 2-Substantial/Maximal Assistance-helper does MORE THAN HALF the effort. [place] lifts or holds trunk or limbs and provides more than half the effort. 7-Yuqvuvwxe-yyktcw does ALL the effort. Patient does none of the effort to complete the activity. Or, the assistance of 2 or more helpers is required for the patient to complete the activity. If activity was not attempted, code reason: 7-Patient Refused. 9-Not Applicable-not attempted and the patient did not perform the activity before the current illness, exacerbation or injury. 10-Not Attempted due to Environmental Limitations-(lack of equipment, weather restraints, etc.). 88-Not Attempted due to Medical Conditions or Safety Concerns. OT [facility] Goals Mattress Specialist Goals Time Frame: Nov 22, 2021 Eating (QC): 5 Oral Hygiene (QC): 5 Toileting Hygiene (QC): 4 Lower Body Dressing (QC): 4 On/Off Footwear (QC): 4 1=Demonstrate adherence to instructed precautions during ADL tasks. 2=Patient will verbalize/demonstrate understanding of assistive devices/modifications for ADL. 3=Patient will improve strength/tolerance for activity to enable patient to perf orm ADL's. OT Education/Plan Problem List/Assessment Assessment: Decreased Activ Tolerance Discharge Recommendations Plan/Recommendations: Continue POC Treatment Plan/Plan of Care Patient would benefit from OT for education, treatment and training to promote independence in ADL's, mobility, safety and/or upper extremity function for ADL's. Plan of Care: ADL Retraining, Functional Mobility, Group Exercise/Act as Ind, UE Funct Exercise/Act Treatment Duration: Nov 22, 2021 Frequency: 3 times per week Estimated Hrs Per Day: .25 hour per day Agreement: Yes Rehab Potential: Fair Time/GCodes Start Time: 09:15 Stop Time: 09:30 Total Time Billed (hr/min): 15 Billed Treatment Time 1 visit-ADL 1 (15 min) SUSAN COX Nov 10, 2021 10:00
[2021-11-10] MEDS: NS IV 1000 ML 1,000 ML IV SCH (11:13)
[2021-11-10 12:00] VITALS: BP 167/77
[2021-11-10] MEDS ORDERED: CEFD300C3 PO (13:13)
[2021-11-10 15:36] VITALS: BP 161/73
--- NOTE | 2021-11-10 22:11 | Discharge Summary ---
Discharge Summary Hospital Course Problems/Dx: (1) Severe sepsis Status: Acute (2) PNA (pneumonia) Status: Acute (3) Acute kidney injury superimposed on chronic kidney disease Status: Acute (4) 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 (5) Acute respiratory failure with hypoxia and hypercapnia Status: Acute (6) T2DM (type 2 diabetes mellitus) Status: Chronic Hospital Course Date of Admission: Nov 07, 2021 at 21:09 Admission Diagnosis : Severe sepsis due to pneumonia Family Physician/Provider: Shawn Callejas MD Date of Discharge: 11/10/21 Discharge Diagnosis: Severe sepsis due to pneumonia Hospital Course: Paul Mejía is a 66 year old male with PMH renal cell carcinoma metastatic to the lung on chemotherapy, s/p nephrectomy, T2DM, CKD, who was admitted with severe sepsis due to pneumonia. He was requiring increased levels of oxygen supplementation. He also had an MARÍA on CKD. He was started on IV antibiotics and fluids and improved. He was still requiring increased levels of oxygen at 5 L continuously at the time of discharge. He will complete a course of antibiotics as an outpatient. He should follow up with his PCP in a week or two. He should follow up with his oncologist as scheduled. He was discharged home in stable condition. Labs and Pending Lab Test: Laboratory Tests 11/10/21 05:22: White Blood Count 19.1H, Red Blood Count 3.53L, Hemoglobin 10.4L, Hematocrit 33L , Mean Corpuscular Volume 94, Mean Corpuscular Hemoglobin 30, Mean Corpuscular Hemoglobin Concent 31L, Red Cell Distribution Width 14.9H, Platelet Count 199, Mean Platelet Volume 10.5, Immature Granulocyte % (Auto) 4, Neutrophils (%) (Auto) 85H, Lymphocytes (%) (Auto) 4L, Monocytes (%) (Auto) 6, Eosinophils (%) (Auto) 1, Basophils (%) (Auto) 0, Neutrophils # (Auto) 16.2H, Lymphocytes # (Auto) 0.8L, Monocytes # (Auto) 1.2H, Eosinophils # (Auto) 0.1, Basophils # (Auto) 0.1, Immature Granulocyte # (Auto) 0.8H, Sodium Level 135, Potassium Level 4.8, Chloride Level 105, Carbon Dioxide Level 20L, Anion Gap 10, Blood Urea Nitrogen 22H, Creatinine 1.16, Estimat Glomerular Filtration Rate 69, BUN/Creatinine Ratio 19, Glucose Level 181H, Calcium Level 8.2L, Corrected Calcium 9.2, Magnesium Level 1.7, Total Bilirubin 0.3, Aspartate Amino Transf (AST/SGOT) 22, Alanine Aminotransferase (ALT/SGPT) 21, Alkaline Phosphatase 78, Total Protein 5.2L, Albumin 2.8L 11/10/21 05:30: Glucometer 160H 11/10/21 11:02: Glucometer 150H 11/10/21 15:36: Glucometer 147H Microbiology 11/09/21 Blood Culture - Preliminary, Resulted No growth 11/07/21 MRSA Screen - Final, Complete MRSA not isolated Home Meds Active Cefdinir 300 Mg Capsule 300 Mg PO BID 5 Days Reported Lisinopril 20 Mg Tablet 20 Mg PO DAILY Novolog Flexpen (Insulin Aspart) 100 Unit/Ml (3 Ml) Solution 8 Units SQ AC Levemir Flextouch (Insulin Detemir) 100 Unit/Ml (3 Ml) Insuln.pen 23 Unit SQ HS Iprat-Albut 0.5-3(2.5) mg/3 ml (Ipratropium/Albuterol Sulfate) 0.5 Mg-3 Mg (2.5 Mg Base)/3 Ml Ampul.neb 3 Ml IH TID Oxycodone-Acetaminophen 5-325 (Oxycodone HCl/Acetaminophen) 5 Mg-325 Mg Tablet 1 Ea PO BID PRN Amlodipine Besylate 2.5 Mg Tablet 2.5 Mg PO HS Flonase Allergy Relief (Fluticasone Propionate) 9.9 Ml [place].susp 1-2 [place] NSEACH DAILY PRN Proair Hfa (Albuterol Sulfate) 1 Puff Puff 2 Puff IH Q4H PRN Breo Ellipta 200-25 Mcg INH (Fluticasone/Vilanterol) 1 Each Blst.w.dev 1 Each IH DAILY Vitamin D3 (Cholecalciferol (Vitamin D3)) 25 Mcg Capsule 25 Mcg PO DAILY Ferosul (Ferrous Sulfate) 325 Mg Tablet 325 Mg PO DAILY Colestipol HCl 1 Gm Tablet 2 Gm PO BID TAKES 2 (1GM) TABLET Vitamin C (Ascorbic Acid) 500 Mg Tablet 500 Mg PO DAILY Lutein 20 Mg Tablet 40 Mg PO DAILY Assessment/Pt Instructions See instructions Discharge Planning: >30 minutes discharge planning Discharge Instructions Discharge Diet: ADA Diet Activity as Tolerated: Yes Discharge Physical Examination Vital Signs Vital Signs Date Time Temp Pulse Resp B/P (MAP) Pulse Ox O2 Delivery O2 Flow Rate FiO2 11/10/21 16:48 11/10/21 15:36 35.9 70 20 97 Nasal Cannula 5.00 11/08/21 08:00 30 General Appearance: No Apparent Distress, WD/WN Respiratory: Lungs Clear, No Respiratory Distress Cardiovascular: Regular Rate, Rhythm, No Murmur Gastrointestinal: Normal Bowel Sounds, Soft Extremity: Normal Inspection, No Pedal Edema Neurologic/Psychiatric: Alert, Normal Mood/Affect Allergies: Coded Allergies: meperidine (Verified Allergy, Mild, RASH, Pt has received Fentanyl w/o issue, 12/15/18) Copy Copies To 1: SHAWN CALLEJAS MD Discharge Summary Date of Admission Nov 07, 2021 at 21:09 Date of Discharge Nov 10, 2021 at 17:26 Discharge Date: Nov 10, 2021 Discharge Time: 17:28 Admission Diagnosis Severe sepsis due to pneumonia Discharge Diagnosis Severe sepsis due to pneumonia Acute on chronic respiratory failure with hypoxia and hypercapnia MARÍA on CKD (1) Severe sepsis Status: Acute (2) PNA (pneumonia) Onset Date: ~ 07/08/2021 Status: Acute (3) Acute kidney injury superimposed on chronic kidney disease Onset Date: ~ 07/08/2021 Status: Acute (4) 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 (5) Acute respiratory failure with hypoxia and hypercapnia Status: Acute (6) T2DM (type 2 diabetes mellitus) Status: Chronic Clinical Quality Measures AMI/AHF: ASA po Prior to arrival: Yes Smoking Cessation Counseling: Counseling-Symptomatic: 3-10 Minutes Discussed Options Including: Nicotine Patch SHAKA THOMAS MD Nov 10, 2021 22:11
== END 2021-11-10 17:26 | disposition home or self-care (01) | DRG 871 ==
LOC: EDUNIT# 19:52 → ER 19:56 → CSD 21:09 → ICU 23:18 → 4TH 11-09 13:00
PROVIDERS: ADMIT Internal Medicine; ATTEND Family Medicine
PROC: 02HV33Z Insertion of Infusion Device into Superior Vena Cava, Percutaneous Approach (ICD-10-PCS; principal; 2021-11-08)
PROC: 5A09357 Assistance with Respiratory Ventilation, Less than 24 Consecutive Hours, Continuous Positive Airway Pressure (ICD-10-PCS; 2021-11-08)
PROC: 5A0935A Assistance with Respiratory Ventilation, Less than 24 Consecutive Hours, High Flow/Velocity Cannula (ICD-10-PCS; 2021-11-09)
DX: A41.9 Sepsis, unspecified organism (principal); J18.9 Pneumonia, unspecified organism; J96.01 Acute respiratory failure with hypoxia; J96.02 Acute respiratory failure with hypercapnia; R65.21 Severe sepsis with septic shock; N17.9 Acute kidney failure, unspecified; C78.00 Secondary malignant neoplasm of unspecified lung; J44.0 Chronic obstructive pulmonary disease with (acute) lower respiratory infection; N18.9 Chronic kidney disease, unspecified; E11.9 Type 2 diabetes mellitus without complications; Z90.5 Acquired absence of kidney; Z85.528 Personal history of other malignant neoplasm of kidney; F17.210 Nicotine dependence, cigarettes, uncomplicated; Z79.4 Long term (current) use of insulin; Z79.899 Other long term (current) drug therapy; I12.9 Hypertensive chronic kidney disease with stage 1 through stage 4 chronic kidney disease, or unspecified chronic kidney disease; M19.90 Unspecified osteoarthritis, unspecified site; G89.29 Other chronic pain; M54.9 Dorsalgia, unspecified; Z92.21 Personal history of antineoplastic chemotherapy; Z99.81 Dependence on supplemental oxygen; D64.9 Anemia, unspecified; Z20.822 Contact with and (suspected) exposure to COVID-19
CPT/HCPCS: 36415; 71045; 80053; 82805; 82947; 83605; 83735; 85007; 85025; 85027; 85610; 85730; 87040; 87081; 87636; 93005; 94640; 94660; 94760; 94761; 99291

== ENCOUNTER → 2021-11-15 | Outpatient (CLI) | payer BC ==
[~2021-11-15] MED LIST changes: +AMLO2.5T4 PO; +CEFD300C3 PO; +INSU100I29 SQ; +IPRA3AMP31 IH; +OXYC1TAB11 PO
--- NOTE | 2021-11-15 15:48 | Diagnostic Imaging Report ---
INDICATION: Pneumonia. TIME OF EXAM: 2:37 PM COMPARISON: Correlation is made with prior chest from 04/20/2017. Heart size is stable. Left basilar atelectasis or scarring persists. There is a small amount of pleural fluid, bilaterally. No definite pneumothorax is seen. IMPRESSION: Left basilar subsegmental atelectasis or scarring as well as small bilateral effusions. Dictated by: Dictated on workstation # [id number]
== END ==
LOC: RAD 14:22
PROVIDERS: ATTEND Internal Medicine
DX: J18.9 Pneumonia, unspecified organism (principal)
CPT/HCPCS: 71046

== ENCOUNTER 2021-11-24 20:43 | Outpatient (CLI) | payer BC | END 2021-11-25 06:10 | disposition home or self-care (01) | LOC: SLEEP 20:43 | PROVIDERS: ATTEND Otolaryngology Otolaryngology/Facial Plastic Surgery | DX: G47.33 Obstructive sleep apnea (adult) (pediatric) (principal); G47.36 Sleep related hypoventilation in conditions classified elsewhere; G47.10 Hypersomnia, unspecified; Z87.01 Personal history of pneumonia (recurrent) | CPT/HCPCS: 95810 ==

== ENCOUNTER 2021-12-07 14:58 | Outpatient (RCR) | payer BC ==
[2021-12-07] MEDS ORDERED: HEParin (CENTRAL IV FLUSH) 500 UNIT/5 ML SYR IV PRN (15:50)
[2021-12-07] MEDS ORDERED: NS (IVPB) 250 ML IV SCH (15:50)
[2021-12-07] MEDS ORDERED: NIVOLUMAB 480 MG in NS (IVPB) 100 ML IV SCH (15:50)
[2021-12-07 16:08] LABS: BASOPHILS % (AUTO) 0 % (0-10); EOSINOPHILS % (AUTO) 13 % (0-10); HEMATOCRIT 39 % (40-54); HEMOGLOBIN 11.7 g/dL (13.3-17.7); LYMPHOCYTES # (AUTO) 1.7 10^3/uL (1.0-4.0); LYMPHOCYTES % (AUTO) 22 % (12-44); MEAN CORPUSCULAR HEMOGLOBIN 29 pg (25-34); MEAN CORPUSCULAR HGB CONC 30 g/dL (32-36); MEAN CORPUSCULAR VOLUME 96 fL (80-99); MEAN PLATELET VOLUME 9.4 fL (9.0-12.2); MONOCYTES # (AUTO) 0.6 10^3/uL (0.0-1.0); MONOCYTES % (AUTO) 9 % (0-12); NEUTROPHILS # (AUTO) 4.1 10^3/uL (1.8-7.8); NEUTROPHILS % (AUTO) 55 % (42-75); PLATELET COUNT 209 10^3/uL (130-400); WHITE BLOOD COUNT 7.5 10^3/uL (4.3-11.0)
[2021-12-07 16:31] LABS: ALBUMIN 4.4 GM/DL (3.2-4.5); BILIRUBIN,TOTAL 0.5 MG/DL (0.1-1.0); CALCIUM 9.6 MG/DL (8.5-10.1); CREATININE SERUM 1.39 MG/DL (0.60-1.30); POTASSIUM 4.5 MMOL/L (3.6-5.0); TOTAL PROTEIN 7.5 GM/DL (6.4-8.2)
== END 2021-12-22 10:50 | disposition home or self-care (01) ==
LOC: ONC 14:58
PROVIDERS: ATTEND Internal Medicine Hematology & Oncology
DX: Z51.11 Encounter for antineoplastic chemotherapy (principal); Z45.2 Encounter for adjustment and management of vascular access device; C64.2 Malignant neoplasm of left kidney, except renal pelvis; C78.01 Secondary malignant neoplasm of right lung; E11.22 Type 2 diabetes mellitus with diabetic chronic kidney disease; I12.9 Hypertensive chronic kidney disease with stage 1 through stage 4 chronic kidney disease, or unspecified chronic kidney disease; N18.30 Chronic kidney disease, stage 3 unspecified; J44.9 Chronic obstructive pulmonary disease, unspecified; Z79.4 Long term (current) use of insulin; Z90.5 Acquired absence of kidney; Z72.0 Tobacco use
CPT/HCPCS: 80053; 85025; 96413; G0463; 36415

== ENCOUNTER → 2021-12-19 | Outpatient (CLI) | payer BC ==
--- NOTE | 2021-12-19 16:32 | Diagnostic Imaging Report ---
INDICATION: Follow-up pneumonia. COMPARISON: 11/15/2021. FINDINGS: Frontal and lateral radiographic views of the chest were obtained and continue to show background advanced emphysematous disease. There has however been interval clearing of the left basilar effusion and infiltrate. Lungs are otherwise clear. There is no large effusion or pneumothorax on either side. Cardiac silhouette and pulmonary vasculature are within normal limits. Osseous structures show no gross acute abnormalities. IMPRESSION: 1. Interval clearing of the left base. 2. Persistent background advanced emphysematous disease. Dictated by: Dictated on workstation # [id number]
== END ==
LOC: RAD 16:00
PROVIDERS: ATTEND Nurse Practitioner Family
DX: J43.9 Emphysema, unspecified (principal); J18.9 Pneumonia, unspecified organism
CPT/HCPCS: 71046

== ENCOUNTER 2022-01-04 15:10 | Outpatient (RCR) | payer BC ==
[~2022-01-04 15:10] MED LIST changes: +HEParin (CENTRAL IV FLUSH) 500 UNIT/5 ML SYR IV PRN; +NIVOLUMAB 480 MG in NS (IVPB) 100 ML IV SCH; +NS (IVPB) 250 ML IV SCH
[2022-01-04 15:34] LABS: BASOPHILS % (AUTO) 0 % (0-10); EOSINOPHILS # (AUTO) 0.8 10^3/uL (0.0-0.3); EOSINOPHILS % (AUTO) 9 % (0-10); HEMATOCRIT 34 % (40-54); HEMOGLOBIN 10.6 g/dL (13.3-17.7); LYMPHOCYTES # (AUTO) 1.8 X 10^3 (1.0-4.0); LYMPHOCYTES % (AUTO) 21 % (12-44); MEAN CORPUSCULAR HEMOGLOBIN 30 pg (25-34); MEAN CORPUSCULAR HGB CONC 32 g/dL (32-36); MEAN CORPUSCULAR VOLUME 95 fL (80-99); MONOCYTES # (AUTO) 0.7 X 10^3 (0.0-1.0); MONOCYTES % (AUTO) 8 % (0-12); NEUTROPHILS # (AUTO) 5.3 X 10^3 (1.8-7.8); NEUTROPHILS % (AUTO) 62 % (42-75); PLATELET COUNT 197 10^3/uL (130-400); WHITE BLOOD COUNT 8.6 10^3/uL (4.3-11.0)
[2022-01-04 16:00] LABS: ALBUMIN 4.1 GM/DL (3.2-4.5); BILIRUBIN,TOTAL 0.4 MG/DL (0.1-1.0); CALCIUM 9.3 MG/DL (8.5-10.1); CREATININE SERUM 1.51 MG/DL (0.60-1.30); POTASSIUM 4.7 MMOL/L (3.6-5.0); TOTAL PROTEIN 6.6 GM/DL (6.4-8.2)
== END 2022-01-31 14:04 | disposition home or self-care (01) ==
LOC: ONC 15:10
PROVIDERS: ATTEND Internal Medicine Hematology & Oncology
DX: Z51.11 Encounter for antineoplastic chemotherapy (principal); C64.2 Malignant neoplasm of left kidney, except renal pelvis; C78.01 Secondary malignant neoplasm of right lung; E11.22 Type 2 diabetes mellitus with diabetic chronic kidney disease; I12.9 Hypertensive chronic kidney disease with stage 1 through stage 4 chronic kidney disease, or unspecified chronic kidney disease; N18.30 Chronic kidney disease, stage 3 unspecified; D63.1 Anemia in chronic kidney disease; Z90.5 Acquired absence of kidney
CPT/HCPCS: 80053; 85025; 96413; G0463; 36415

== ENCOUNTER 2022-01-29 03:37 | Emergency (ER) | payer BC ==
[~2022-01-29] VITALS: Ht 193 cm; Wt 79.4 kg
[~2022-01-29 03:37] MED LIST changes: -HEParin (CENTRAL IV FLUSH) 500 UNIT/5 ML SYR IV PRN; -NIVOLUMAB 480 MG in NS (IVPB) 100 ML IV SCH; -NS (IVPB) 250 ML IV SCH
--- NOTE | 2022-01-29 04:08 | ED General ---
General Chief Complaint: Altered Mental Status Stated Complaint: FALL,AMS,HYPOGLYCEMIC Source of Information: Patient Exam Limitations: No Limitations (SKYE DONAHUE) History of Present Illness Date Seen by Provider: Jan 29, 2022 Time Seen by Provider: 03:45 Initial Comments Patient to the ER by EMS from home with significant other report that he was getting up to get ready for work this morning and was stumbling around and fell and was complaining of pain in his neck. EMS reported he had a blood sugar in the mid 30s on arrival so they gave him an amp of D50 and that brought his blood sugar up over 200 and on recheck it was 170 before coming in the EMS bay. He uses oxygen 3 to 5 L at night to sleep and was not wearing it when they arrived. He does not wear oxygen throughout the day. He has a history of CAD, CKD, COPD, renal cell carcinoma with mets distally. Patient smokes cigarettes a couple cigarettes a day. He denies any coughing fever chills nausea vomiting diarrhea. He is having some discomfort in his neck but he says he also has chronic neck pain. The patient was just in the hospital couple months ago with history of pneumonia and sepsis. The patient states he does take insulin but denies being on antiplatelets or blood thinners. (SKYE DONAHUE) Allergies and Home Medications Allergies Coded Allergies: meperidine (Verified Allergy, Mild, RASH, Pt has received Fentanyl w/o i ssue, 12/15/18) Patient Home Medication List Home Medication List Reviewed: Yes (SKYE DONAHUE) Albuterol Sulfate (Proair Hfa) 1 Puff Puff, 2 PUFF IH Q4H PRN for SHORTNESS OF BREATH, (Reported) Entered as Reported by: ILA PAINTING on 07/10/21 1533 Amlodipine Besylate (Amlodipine Besylate) 2.5 Mg Tablet, 2.5 MG PO HS, (Reported) Entered as Reported by: ILA PAINTING on 11/08/21 1004 Ascorbic Acid (Vitamin C) 500 Mg Tablet, 500 MG PO DAILY, (Reported) Entered as Reported by: JADA KIMBALL on 09/21/15 1057 Cefdinir (Cefdinir) 300 Mg Capsule, 300 MG PO BID Prescribed by: SHAKA THOMAS on 11/10/21 1313 Cholecalciferol (Vitamin D3) (Vitamin D3) 25 Mcg Capsule, 25 MCG PO DAILY, (R eported) Entered as Reported by: ILA PAINTING on 07/10/21 1522 Colestipol HCl (Colestipol HCl) 1 Gm Tablet, 2 GM PO BID, (Reported) Entered as Reported by: JADA KIMBALL on 04/19/17 1519 Ferrous Sulfate (Ferosul) 325 Mg Tablet, 325 MG PO DAILY, (Reported) Entered as Reported by: JADA KIMBALL on 04/19/17 1519 Fluticasone Propionate (Flonase Allergy Relief) 9.9 Ml [place].susp, 1-2 SPRAY NSEACH DAILY PRN for CONGESTION, (Reported) Entered as Reported by: ILA PAINTING on 07/10/21 1533 Fluticasone/Vilanterol (Breo Ellipta 200-25 Mcg INH) 1 Each Blst.w.dev, 1 EACH IH DAILY, (Reported) Entered as Reported by: ILA PAINTING on 07/10/21 1533 Insulin Aspart (Novolog Flexpen) 100 Unit/Ml (3 Ml) Solution, 8 UNITS SQ AC, (Re ported) Entered as Reported by: ILA PAINTING on 11/08/21 1004 Insulin Detemir (Levemir Flextouch) 100 Unit/Ml (3 Ml) Insuln.pen, 23 UNIT SQ HS, (Reported) Entered as Reported by: ILA PAINTING on 11/08/21 1004 Ipratropium/Albuterol Sulfate (Iprat-Albut 0.5-3(2.5) mg/3 ml) 0.5 Mg-3 Mg (2.5 Mg Base)/3 Ml Ampul.neb, 3 ML IH TID, (Reported) Entered as Reported by: ILA PAINTING on 11/08/21 1004 Lisinopril (Lisinopril) 20 Mg Tablet, 20 MG PO DAILY, (Reported) Entered as Reported by: ILA PAINTING on 11/08/21 1109 Lutein (Lutein) 20 Mg Tablet, 40 MG PO DAILY, (Reported) Entered as Reported by: JADA KIMBALL on 09/21/15 1057 Oxycodone HCl/Acetaminophen (Oxycodone-Acetaminophen 5-325) 5 Mg-325 Mg Tablet, 1 EA PO BID PRN for PAIN-MODERATE (5-7), (Reported) Entered as Reported by: ILA PAINTING on 11/08/21 1004 Review of Systems Review of Systems Constitutional: No chills, No diaphoresis, No fever, No malaise EENTM: No ear discharge, No ear pain Respiratory: No cough, No short of breath Cardiovascular: No chest pain, No edema; Hx of Intervention; No palpitations Gastrointestinal: No abdominal pain, No constipation, No diarrhea, No nausea Genitourinary: No discharge, No dysuria Musculoskeletal: No back pain, No joint pain; neck pain Skin: No change in color, No lesions, No lumps (SKYE DONAHUE) All Other Systems Reviewed Negative Unless Noted: Yes (SKYE DONAHUE) Past Zxxdupn-Eejtsh-Aoeeip Hx Patient Social History Tobacco Use?: Yes Tobacco type used: Cigarettes Use of E-Cig and/or Vaping dev: No Substance use?: No (SKYE DONAHUE) Immunizations Up To Date Tetanus Booster (TDap): More than 5yrs First/Initial COVID19 Vaccinat: MAY 2021 Second COVID19 Vaccination Sal: JUNE 2021 (SKYE DONAHUE) Seasonal Allergies Seasonal Allergies: No (SKYE DONAHUE) Past Medical History Surgery/Hospitalization HX: pneumonia in june Surgeries: Yes (BILAT TKR, BMT, HERNIA X2;CATARACTS;THUMB SURGERY;L NEPHRECTOMY;LUNG BX) Abdominal, Ear Surgery, Eye Surgery, Gallbladder, Joint Replacement, Nephrectomy, Orthopedic Respiratory: Yes (LUNG BIOPSY/PNEUMOTHORAX; LUNG CANCER) Pneumonia, Chronic Bronchitis Currently Using CPAP: No Currently Using BIPAP: No Cardiac: Yes Hypertension, Rheumatic Fever Neurological: No Reproductive Disorders: No HIV/AIDS: No Genitourinary: Yes (RENAL CANCER--LEFT NEPHRECTOMY) Gastrointestinal: Yes Chronic Diarrhea, Polyps Musculoskeletal: Yes (FX L LEG,CLAVICLE,RIBS,FOOT; KNEE SX/SCREWS;OSTEOARTHRITIS KNEES/BILAT TKR) Degenerate Disk Disease, Arthritis, Chronic Back Pain, Fractures Endocrine: Yes (INSULIN + ORAL MEDICATIONS) Diabetes, Insulin dep HEENT: Yes (GLASSES, PARTIAL ) Cataract Loss of Vision: Denies Hearing Impairment: Hard of Hearing Cancer: Yes (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) Lung, Kidney Did You Recieve Any Treatments: Yes What Type of Treatment Did You: Chemotherapy, Surgical Intervention Psychosocial: No Integumentary: No Blood Disorders: No Adverse Reaction/Blood Tranf: No (N/A) (SKYE DONAHUE) Family Medical History Diabetes mellitus 19 FATHER 19 MOTHER G8 BROTHER FH: skin cancer 19 MOTHER Family history: Arthritis Family history: Coronary thrombosis Family history: Diabetes mellitus History of - respiratory disease No Family History of: Abdominal aortic aneurysm Karlos's disease Alcoholism Aphasia Cancer Cancer of colon Cataract Chest pain Congenital heart disease Congestive heart failure Cystic fibrosis Dementia Dysphagia Family history: Allergy Family history: Alzheimer's disease Family history: Asthma Family history: Breast disease Family history: Cardiovascular disease Family history: Gastrointestinal disease Family history: Glaucoma Family history: Hypertension Family history: Osteoporosis Family history: Thyroid disorder Headache Hearing loss Heart disease Hereditary disease History of - anemia History of - disorder History of drug abuse Human immunodeficiency virus (HIV) seropositivity Hypercholesterolemia Infertile Kidney disease Malignant neoplasm of lung Myocardial infarction Parkinson's disease Prostate cancer Psychotic disorder Seizure disorder Stroke Tuberculosis Visual impairment No Pertinent Family Hx SOCIAL HISTORY: -ETOH--DENIES USE -SMOKES 1 PPD -DRUGS--DENIES USE PSH: -HERNIA REPAIR X 2 -BILATERAL MYRINGOTOMY TUBES -CARPAL TUNNEL SURGERY -BILATERAL CATARACT SURGERY -SCREWS IN KNEE AND LATER REMOVED -BILATERAL KNEE REPLACEMENTS 2013 -LEFT NEPHRECTOMY FOR CANCER 2013 -LUNG BIOPSY WITH PNEUMOTHORAX (SKYE DONAHUE) Physical Exam Vital Signs Vital Signs - First Documented 01/29/22 03:38 Temp 35.8 Pulse 55 Resp 16 B/P (MAP) 113/52 (72) Pulse Ox 99 O2 Delivery Nasal Cannula O2 Flow Rate 3.00 (NIKKO ACOSTA DO) Vital Signs Capillary Refill : (SKYE DONAHUE) Height, Weight, BMI Height: 6'4.00" Weight: 203lbs. 5.0oz. 92.700150xi; 23.11 BMI Method:Stated General Appearance: Mild Distress, Thin Eyes: Bilateral Eye Normal Inspection, Bilateral Eye PERRL, Bilateral Eye EOMI HEENT: PERRL/EOMI, Pharynx Normal, Moist Mucous Membranes Neck: Full Range of Motion, Normal Inspection Respiratory: Lungs Clear, Normal Breath Sounds, No Accessory Muscle Use, No Respiratory Distress Cardiovascular: Regular Rate, Rhythm, No Edema, Normal Peripheral Pulses Gastrointestinal: Normal Bowel Sounds, Non Tender, Soft Extremity: Normal Capillary Refill, Normal Inspection, No Pedal Edema Neurologic/Psychiatric: Alert, Oriented x3, Other (GCS 14) Skin: Normal Color, Warm/Dry (SKYE DONAHUE) Procedures/Interventions Date of ETT Placement: Jul 07, 2021 Time of ETT Placement: 2236 (SKYE DONAHUE) Progress/Results/Core Measures Suspected Sepsis SIRS Temperature: Pulse: Respiratory Rate: Laboratory Tests 01/29/22 04:14: White Blood Count 8.3 Blood Pressure / Mean: Laboratory Tests 01/29/22 04:14: Creatinine 8.75H, Platelet Count 251, Total Bilirubin 0.3 (SKYE DONAHUE) Results/Orders Lab Results Laboratory Tests Test 01/29/22 03:54 01/29/22 04:00 01/29/22 04:14 01/29/22 04:35 Range/Units Glucometer 93 70 70-110 MG/DL Blood Gas Puncture Site RIGHT RADIAL RIGHT RADIAL Blood Gas Patient Temperature 35.8 35.8 Arterial Blood pH 7.16 *L 7.24 *L 7.37-7.43 Arterial Blood Partial Pressure CO2 71 *H 50 H 35-45 MMHG Arterial Blood Partial Pressure O2 32 *L 70 L 79-93 MMHG Arterial Blood HCO3 25 21 L 23-27 MMOL/L Arterial Blood Total CO2 27.2 22.8 21.0-31.0 MMOL/L Arterial Blood Oxygen Saturation 55 L 95 94-100 % Arterial Blood Base Excess -2.9 L -5.2 L -2.5-2.5 MMOL/L Ino Test YES-POS YES-POS Blood Gas Ventilator Setting NO NO Blood Gas Inspired Oxygen 3L 3L White Blood Count 8.3 4.3-11.0 10^3/uL Red Blood Count 3.62 L 4.30-5.52 10^6/uL Hemoglobin 10.8 L 13.3-17.7 g/dL Hematocrit 35 L 40-54 % Mean Corpuscular Volume 96 80-99 fL Mean Corpuscular Hemoglobin 30 25-34 pg Mean Corpuscular Hemoglobin Concent 31 L 32-36 g/dL Red Cell Distribution Width 14.8 H 10.0-14.5 % Platelet Count 251 130-400 10^3/uL Mean Platelet Volume 9.7 9.0-12.2 fL Immature Granulocyte % (Auto) 0 % Neutrophils (%) (Auto) 76 H 42-75 % Lymphocytes (%) (Auto) 10 L 12-44 % Monocytes (%) (Auto) 9 0-12 % Eosinophils (%) (Auto) 5 0-10 % Basophils (%) (Auto) 0 0-10 % Neutrophils # (Auto) 6.3 1.8-7.8 10^3/uL Lymphocytes # (Auto) 0.9 L 1.0-4.0 10^3/uL Monocytes # (Auto) 0.7 0.0-1.0 10^3/uL Eosinophils # (Auto) 0.4 H 0.0-0.3 10^3/uL Basophils # (Auto) 0.0 0.0-0.1 10^3/uL Immature Granulocyte # (Auto) 0.0 0.0-0.1 10^3/uL Sodium Level 144 135-145 MMOL/L Potassium Level 5.9 H 3.6-5.0 MMOL/L Chloride Level 109 H 98-107 MMOL/L Carbon Dioxide Level 19 L 21-32 MMOL/L Anion Gap 16 H 5-14 MMOL/L Blood Urea Nitrogen 71 H 7-18 MG/DL Creatinine 8.75 H 0.60-1.30 MG/DL Estimat Glomerular Filtration Rate 6 BUN/Creatinine Ratio 8 Glucose Level 96 70-105 MG/DL Calcium Level 8.5 8.5-10.1 MG/DL Corrected Calcium 8.9 8.5-10.1 MG/DL Total Bilirubin 0.3 0.1-1.0 MG/DL Aspartate Amino Transf (AST/SGOT) 15 5-34 U/L Alanine Aminotransferase (ALT/SGPT) 16 0-55 U/L Alkaline Phosphatase 48 40-136 U/L C-Reactive Protein High Sensitivity 0.52 H 0.00-0.50 MG/DL Total Protein 6.2 L 6.4-8.2 GM/DL Albumin 3.5 3.2-4.5 GM/DL Serum Alcohol < 10 <10 MG/DL Test 01/29/22 05:19 01/29/22 06:18 01/29/22 07:00 Range/Units Urine Color YELLOW Urine Clarity CLEAR Urine pH 5.0 5-9 Urine Specific [place] 1.010 L 1.016-1.022 Urine Protein NEGATIVE NEGATIVE Urine Glucose (UA) NEGATIVE NEGATIVE Urine Ketones NEGATIVE NEGATIVE Urine Nitrite NEGATIVE NEGATIVE Urine Bilirubin NEGATIVE NEGATIVE Urine Urobilinogen 0.2 < = 1.0 MG/DL Urine Leukocyte Esterase NEGATIVE NEGATIVE Urine RBC (Auto) NEGATIVE NEGATIVE Urine RBC NONE /HPF Urine WBC NONE /HPF Urine Squamous Epithelial Cells 0-2 /HPF Urine Crystals NONE /LPF Urine Bacteria NEGATIVE /HPF Urine Casts NONE /LPF Urine Mucus NEGATIVE /LPF Urine Culture Indicated NO Glucometer 198 H 204 H 70-110 MG/DL (NIKKO ACOSTA DO) My Orders Orders - NIKKO ACOSTA DO Calc Gluc 1 Gm/100 Ml Ivpb (Calcium Gluc (01/29/22 07:45) (KARLANIKKONUSRAT Bennett DO) Vital Signs/I&O 01/29/22 03:38 Temp 35.8 Pulse 55 Resp 16 B/P (MAP) 113/52 (72) Pulse Ox 99 O2 Delivery Nasal Cannula O2 Flow Rate 3.00 (NIKKO ACOSTA DO) Vital Signs/I&O Capillary Refill : (SKYE DONAHUE) Point of Care Testing Finger Stick Blood Glucose: 93 Blood Glucose Action Taken: DR. DONAHUE NOTIFIED. (SKYE DONAHUE) Progress Note #1: Time: 04:11 Progress Note Giving him on 3 L by nasal cannula to keep his oxygen saturation 97 to 98%. He has a soft blood pressure of 100/59 so we will give him some IV fluids. On repeat check his sugar is 90. We will repeat in about 15 minutes. We will look for sources of infection. CT of the head and C-spine. He declined a thing for pain. Progress Note #2: Time: 04:54 Progress Note Patient's blood sugar got down to 70 so were going to give him some D10, get him something to eat. Give him a cup of coffee with some sugar in it per his request. His creatinine is significantly elevated, a liter of fluids has been ordered. Discussed the case with local internal medicine and they would prefer to send him somewhere with nephrology for consult. C-collar cleared at 0440. (SKYE DONAHUE) Progress Note : Time: 06:00 Progress Note Assumed care of patient at shift change. I spoke with him he receives his cancer care at our facility typically. He has no specific complaints at this time. He is a bit somnolent but his vital signs are otherwise stable outside of some mild hypotension, around 100 systolic. I called [facility] in [place] for transfer were pending decision at this time. [facility] was reportedly on diversion. (KARLALB HarrisYasmani Bennett DO) ECG Initial ECG Impression Date: Jan 29, 2022 Initial ECG Impression Time: 03:51 Initial ECG Rate: 48 Initial ECG Rhythm: S.Giovani Initial ECG Intervals: Normal Initial ECG Impression: Normal, Nonspecific Changes Comment Sinus bradycardia without clinically relevant ST elevation or depression. (SKYE DONAHUE) Diagnostic Imaging Diagonstic Imaging: Xray Plain Films/CT/US/NM/MRI: chest Comments Interval improvement of the phlegmon seen on the left chest. [facility] [place] [place] NAME: JAROD LOJA [facility] REC#: [id number] PT STATUS: REG ER : 1955 PHYSICIAN: SKYE DONAHUE MD ADMIT DATE: 01/29/22/ER Signed Date of Exam:01/29/22 CHEST 1 VIEW, AP/PA ONLY EXAMINATION: Chest 1 view HISTORY: soa hypoglycemia COMPARISON: 11/08/2021 FINDINGS: Heart size and pulmonary vasculature are normal. Decreased opacification of the left lung compared to prior exam. There are persistent linear opacities within the left lower lung. No new consolidation, pleural effusion or pneumothorax. The osseous structures are intact. IMPRESSION: 1. Decreasing opacification within the left lung compared to 11/08/2021. Persistent linear atelectasis or scarring in the left lung. 2. No other acute radiographic abnormality in the chest. Dictated by: Dictated on workstation # [id number] Dict: 01/29/22 0559 Trans: 01/29/22801 MARIAELENA [id number] Interpreted by: VAMSHI JACKSON DO Electronically signed by: VAMSHI JACKSON DO 01/29/22801 Reviewed: Reviewed by Me Diagonstic Imaging: CT Plain Films/CT/US/NM/MRI: c-spine, head Comments No acute intracranial hemorrhage, midline shift, mass-effect. No acute fracture or subluxation of the cervical spine. [facility] [place] [place] NAME: JAROD LOJA [facility] REC#: [id number] PT STATUS: REG ER : 1955 PHYSICIAN: SKYE DONAHUE MD ADMIT DATE: 01/29/22/ER Signed Date of Exam:01/29/22 CT HEAD/CERVICAL SPINE WO EXAMINATION: CT head and CT cervical spine without contrast. TECHNIQUE: Multiple contiguous axial images were obtained through the brain and cervical spine without the use of intravenous contrast. Sagittal and coronal reformations through the cervical spine were then performed. All CT scans use one or more of the following dose optimizing techniques: automated exposure control, MA and/or KvP adjustment based on patient size and exam type or iterative reconstruction. HISTORY: Head and neck pain after injury COMPARISON: 08/04/2021 FINDINGS: HEAD: Mild diffuse cerebral volume loss with proportional enlargement of the ventricles and sulci. No abnormal attenuation of brain parenchyma is present. No acute intracranial hemorrhage or abnormal extra-axial fluid collections are present. Calcification of the intracranial ICAs. No hyperdense vessel. The calvarium is intact. There is a right mastoid effusion. Mild mucosal thickening of the paranasal sinuses. Surgical changes from left cataract repair. C-SPINE: There is straightening of normal cervical lordosis. Vertebral body heights are maintained. No acute fracture, dislocation, or destructive osseous process. There is multilevel facet hypertrophy without perched facets. There is multilevel cervical spondylosis. The paraspinous soft tissues are normal. The visualized thyroid gland is normal. Emphysematous changes of the lung apices. IMPRESSION: 1. No acute intracranial abnormality. Mild volume loss. 2. Degenerative changes of the cervical spine without acute osseous abnormality. 3. Agree with preliminary interpretation. Dictated by: Dictated on workstation # [id number] Dict: 01/29/22620 Trans: 01/29/22 08 MARIAELENA [id number] Interpreted by: VAMSHI JACKSON DO Electronically signed by: VAMSHI JACKSON DO 01/29/22808 Reviewed: Reviewed [facility] Study, Reviewed by Me (SKYE DONAHUE) Critical Care Note Critical Care Start Time: 06:00 Stop Time: 07:30 Total Time (minutes) 1.5h (NIKKO ACOSTA DO) Departure Communication (Admissions) 0610: Spoke to [facility], pending acceptance. 0700: initially spoke to Hospitalist, request ICU admission. ICU Dr. Garvey accepts. Pending transport at this time. Patient has remained stable. Blood sugars remain normal on his D5 half-normal saline drip. I have ordered calcium for hyperkalemia. Will defer further management to the receiving facility. (NIKKO ACOSTA DO) Impression Primary Impression: Hypoglycemia associated with diabetes Additional Impressions: MARÍA (acute kidney injury) Hyperkalemia Disposition: XF T-TRM HOSP Condition: Stable Transfer Transfer Reason: Exceeds level of care (Needs Nephrology.) (SKYE DONAHUE) Departure-Patient Inst. Referrals: SHAWN CALLEJAS MD (PCP/Family) Primary Care Physician SKYE DONAHUE Jan 29, 2022 04:08 NIKKO ACOSTA DO Jan 29, 2022 06:11
[2022-01-29 04:09] LABS: ABG BASE EXCESS -2.9 MMOL/L (-2.5-2.5); ABG OXYGEN SATURATION 55 % (94-100); ABG TCO2 27.2 MMOL/L (21.0-31.0)
[2022-01-29 04:10] LABS: ABG PCO2 71 MMHG (35-45); ABG PH 7.16 (7.37-7.43)
[2022-01-29 04:11] LABS: ABG PO2 32 MMHG (79-93); ALLENS TEST YES-POS; INSPIRED O2 3L; PATIENT TEMP 35.8; VENTILATOR NO
[2022-01-29] MEDS ORDERED: NS IV 1000 ML 1,000 ML IV SCH (04:15)
[2022-01-29 04:19] LABS: BASOPHILS % (AUTO) 0 % (0-10); EOSINOPHILS # (AUTO) 0.4 10^3/uL (0.0-0.3); EOSINOPHILS % (AUTO) 5 % (0-10); HEMATOCRIT 35 % (40-54); HEMOGLOBIN 10.8 g/dL (13.3-17.7); LYMPHOCYTES # (AUTO) 0.9 10^3/uL (1.0-4.0); LYMPHOCYTES % (AUTO) 10 % (12-44); MEAN CORPUSCULAR HEMOGLOBIN 30 pg (25-34); MEAN CORPUSCULAR HGB CONC 31 g/dL (32-36); MEAN CORPUSCULAR VOLUME 96 fL (80-99); MEAN PLATELET VOLUME 9.7 fL (9.0-12.2); MONOCYTES # (AUTO) 0.7 10^3/uL (0.0-1.0); MONOCYTES % (AUTO) 9 % (0-12); NEUTROPHILS # (AUTO) 6.3 10^3/uL (1.8-7.8); NEUTROPHILS % (AUTO) 76 % (42-75); PLATELET COUNT 251 10^3/uL (130-400); WHITE BLOOD COUNT 8.3 10^3/uL (4.3-11.0)
[2022-01-29 04:31] LABS: ALBUMIN 3.5 GM/DL (3.2-4.5); CHLORIDE 109 MMOL/L (98-107); POTASSIUM 5.9 MMOL/L (3.6-5.0); SODIUM 144 MMOL/L (135-145)
[2022-01-29 04:32] LABS: CALCIUM 8.5 MG/DL (8.5-10.1)
[2022-01-29 04:33] LABS: GLUCOSE 96 MG/DL (70-105)
[2022-01-29 04:34] LABS: CARBON DIOXIDE 19 MMOL/L (21-32); TOTAL PROTEIN 6.2 GM/DL (6.4-8.2)
[2022-01-29 04:35] LABS: BILIRUBIN,TOTAL 0.3 MG/DL (0.1-1.0)
[2022-01-29 04:37] LABS: ALKALINE PHOSPHATASE 48 U/L (40-136); CREATININE SERUM 8.75 MG/DL (0.60-1.30); GFR ESTIMATED 6
[2022-01-29 04:38] LABS: BUN/CREATININE RATIO 8
[2022-01-29 04:40] LABS: ALANINE AMINOTRANSFERASE 16 U/L (0-55)
[2022-01-29 04:42] LABS: ABG BASE EXCESS -5.2 MMOL/L (-2.5-2.5); ABG OXYGEN SATURATION 95 % (94-100); ABG PCO2 50 MMHG (35-45); ABG PO2 70 MMHG (79-93); ABG TCO2 22.8 MMOL/L (21.0-31.0)
[2022-01-29 04:44] LABS: ABG PH 7.24 (7.37-7.43)
[2022-01-29 04:45] LABS: ALLENS TEST YES-POS; INSPIRED O2 3L; PATIENT TEMP 35.8; VENTILATOR NO
[2022-01-29] MEDS ORDERED: D5 1/2 NS 1000 ML IV SOLUTION 1,000 ML IV SCH (05:00)
[2022-01-29 05:25] LABS: BILIRUBIN,URINE NEGATIVE (NEGATIVE); CLARITY,URINE CLEAR; COLOR,URINE YELLOW; GLUCOSE, URINE (UA) NEGATIVE (NEGATIVE); KETONES,URINE NEGATIVE (NEGATIVE); LEUKOCYTE ESTERASE ,URINE NEGATIVE (NEGATIVE); NITRITE,URINE NEGATIVE (NEGATIVE); PROTEIN,URINE NEGATIVE (NEGATIVE)
[2022-01-29 05:34] LABS: BACTERIA,URINE NEGATIVE /HPF; SQUAMOUS EPITHELIAL CELL,UR 0-2 /HPF
--- NOTE | 2022-01-29 06:04 | Diagnostic Imaging Report ---
EXAMINATION: Chest 1 view HISTORY: soa hypoglycemia COMPARISON: 11/08/2021 FINDINGS: Heart size and pulmonary vasculature are normal. Decreased opacification of the left lung compared to prior exam. There are persistent linear opacities within the left lower lung. No new consolidation, pleural effusion or pneumothorax. The osseous structures are intact. IMPRESSION: 1. Decreasing opacification within the left lung compared to 11/08/2021. Persistent linear atelectasis or scarring in the left lung. 2. No other acute radiographic abnormality in the chest. Dictated by: Dictated on workstation # [id number]
--- NOTE | 2022-01-29 06:25 | Diagnostic Imaging Report ---
EXAMINATION: CT head and CT cervical spine without contrast. TECHNIQUE: Multiple contiguous axial images were obtained through the brain and cervical spine without the use of intravenous contrast. Sagittal and coronal reformations through the cervical spine were then performed. All CT scans use one or more of the following dose optimizing techniques: automated exposure control, MA and/or KvP adjustment based on patient size and exam type or iterative reconstruction. HISTORY: Head and neck pain after injury COMPARISON: 08/04/2021 FINDINGS: HEAD: Mild diffuse cerebral volume loss with proportional enlargement of the ventricles and sulci. No abnormal attenuation of brain parenchyma is present. No acute intracranial hemorrhage or abnormal extra-axial fluid collections are present. Calcification of the intracranial ICAs. No hyperdense vessel. The calvarium is intact. There is a right mastoid effusion. Mild mucosal thickening of the paranasal sinuses. Surgical changes from left cataract repair. C-SPINE: There is straightening of normal cervical lordosis. Vertebral body heights are maintained. No acute fracture, dislocation, or destructive osseous process. There is multilevel facet hypertrophy without perched facets. There is multilevel cervical spondylosis. The paraspinous soft tissues are normal. The visualized thyroid gland is normal. Emphysematous changes of the lung apices. IMPRESSION: 1. No acute intracranial abnormality. Mild volume loss. 2. Degenerative changes of the cervical spine without acute osseous abnormality. 3. Agree with preliminary interpretation. Dictated by: Dictated on workstation # [id number]
[2022-01-29] MEDS ORDERED: CALC GLUC 1 GM/100 ML IVPB 100 ML IV ONE (07:45)
[2022-01-29 09:17] VITALS: BP 117/59
== END 2022-01-29 09:17 | disposition short-term general hospital (02) ==
LOC: EDUNIT# 03:37 → ER 03:38
DX: E11.649 Type 2 diabetes mellitus with hypoglycemia without coma (principal); N17.9 Acute kidney failure, unspecified; E87.5 Hyperkalemia; C64.9 Malignant neoplasm of unspecified kidney, except renal pelvis; F17.210 Nicotine dependence, cigarettes, uncomplicated
CPT/HCPCS: 70450; 71045; 72125; 80053; 81000; 82805; 82947; 85025; 86141; 93005; 99285; G0480; 36415; 80320

== ENCOUNTER 2022-02-18 09:09 | Outpatient (RCR) | payer BC ==
[2022-02-10 09:05] VITALS: BP 150/77
[2022-02-10] MEDS: cefTRIAXone 2,000 MG VIAL IM SCH (09:29)
[2022-02-10] MEDS: VANCOMYCIN 1250 MG/NS 250 ML IVPB IV SCH ×4 (09:56→21:36)
[2022-02-10 21:37] VITALS: BP 132/88
[2022-02-11] MEDS: VANCOMYCIN 1250 MG/NS 250 ML IVPB IV SCH ×4 (08:23→21:30)
[2022-02-11] MEDS: cefTRIAXone 2,000 MG VIAL IM SCH (08:23)
[2022-02-11 08:37] VITALS: BP 130/82
[2022-02-11 21:45] VITALS: BP 145/67
[2022-02-11 21:48] VITALS: BP 145/67
[2022-02-12] MEDS: cefTRIAXone 2,000 MG VIAL IM SCH (09:21)
[2022-02-12] MEDS: VANCOMYCIN 1250 MG/NS 250 ML IVPB IV SCH ×2 (09:28)
[2022-02-12 09:34] VITALS: BP 135/77
[2022-02-12 09:36] LABS: BASOPHILS % (AUTO) 0 % (0-10); EOSINOPHILS # (AUTO) 0.5 10^3/uL (0.0-0.3); EOSINOPHILS % (AUTO) 4 % (0-10); HEMATOCRIT 26 % (40-54); HEMOGLOBIN 8.2 g/dL (13.3-17.7); LYMPHOCYTES % (AUTO) 8 % (12-44); MEAN CORPUSCULAR HEMOGLOBIN 29 pg (25-34); MEAN CORPUSCULAR HGB CONC 32 g/dL (32-36); MEAN CORPUSCULAR VOLUME 93 fL (80-99); MEAN PLATELET VOLUME 9.7 fL (9.0-12.2); MONOCYTES % (AUTO) 8 % (0-12); NEUTROPHILS # (AUTO) 10.5 10^3/uL (1.8-7.8); NEUTROPHILS % (AUTO) 80 % (42-75); PLATELET COUNT 372 10^3/uL (130-400); WHITE BLOOD COUNT 13.1 10^3/uL (4.3-11.0)
[2022-02-12 09:53] LABS: ALBUMIN 3.1 GM/DL (3.2-4.5); BILIRUBIN,TOTAL 0.5 MG/DL (0.1-1.0); CALCIUM 8.6 MG/DL (8.5-10.1); CREATININE SERUM 1.46 MG/DL (0.60-1.30); POTASSIUM 3.8 MMOL/L (3.6-5.0); TOTAL PROTEIN 6.6 GM/DL (6.4-8.2)
[2022-02-12 10:01] LABS: ERYTHROCYTE SEDIMENTATION RATE 50 MM/HR (0-30)
[2022-02-12 10:18] LABS: VANCOMYCIN,TROUGH 48.7 UG/ML (10.0-20.0)
[2022-02-13 09:00] VITALS: BP 144/65
[2022-02-13] MEDS: cefTRIAXone 2,000 MG/NS 50 ML IVPB IV SCH ×2 (09:27)
[2022-02-13 09:42] LABS: CALCIUM 10.8 MG/DL (8.5-10.1); CREATININE SERUM 1.64 MG/DL (0.60-1.30); POTASSIUM 4.1 MMOL/L (3.6-5.0)
[2022-02-13 09:58] LABS: VANCOMYCIN,TROUGH 32.3 UG/ML (10.0-20.0)
[2022-02-14 09:20] VITALS: BP 128/84
[2022-02-14] MEDS: cefTRIAXone 2,000 MG/NS 50 ML IVPB IV SCH ×2 (09:40)
[2022-02-14 09:58] LABS: CALCIUM 8.3 MG/DL (8.5-10.1); CREATININE SERUM 1.46 MG/DL (0.60-1.30); POTASSIUM 4.1 MMOL/L (3.6-5.0)
[2022-02-15] MEDS: cefTRIAXone 2,000 MG/NS 50 ML IVPB IV SCH ×2 (09:25)
[2022-02-15 09:55] VITALS: BP 163/74
[2022-02-16 09:00] VITALS: BP 147/76
[2022-02-16] MEDS: cefTRIAXone 2,000 MG/NS 50 ML IVPB IV SCH ×2 (09:27)
[2022-02-17] MEDS: cefTRIAXone 2,000 MG/NS 50 ML IVPB IV SCH ×2 (09:14)
[2022-02-17 09:40] VITALS: BP 151/67
[~2022-02-18] VITALS: Ht 193 cm; Wt 79.4 kg
[~2022-02-18 09:09] MED LIST changes: +NS (IVPB) 50 ML ONE; +TROUGH ORDER-PHARMACY XX NR
[2022-02-18] MEDS: cefTRIAXone 2,000 MG/NS 50 ML IVPB IV SCH ×2 (09:11)
[2022-02-18 09:35] VITALS: BP 153/72
[2022-02-18 09:38] LABS: BASOPHILS # (AUTO) 0.1 10^3/uL (0.0-0.1); BASOPHILS % (AUTO) 1 % (0-10); EOSINOPHILS # (AUTO) 0.7 10^3/uL (0.0-0.3); EOSINOPHILS % (AUTO) 7 % (0-10); HEMATOCRIT 28 % (40-54); HEMOGLOBIN 8.7 g/dL (13.3-17.7); LYMPHOCYTES # (AUTO) 1.6 10^3/uL (1.0-4.0); LYMPHOCYTES % (AUTO) 16 % (12-44); MEAN CORPUSCULAR HEMOGLOBIN 29 pg (25-34); MEAN CORPUSCULAR HGB CONC 31 g/dL (32-36); MEAN CORPUSCULAR VOLUME 94 fL (80-99); MEAN PLATELET VOLUME 9.2 fL (9.0-12.2); MONOCYTES # (AUTO) 0.7 10^3/uL (0.0-1.0); MONOCYTES % (AUTO) 7 % (0-12); NEUTROPHILS # (AUTO) 7.3 10^3/uL (1.8-7.8); NEUTROPHILS % (AUTO) 69 % (42-75); PLATELET COUNT 340 10^3/uL (130-400); WHITE BLOOD COUNT 10.5 10^3/uL (4.3-11.0)
[2022-02-18 09:42] LABS: ALBUMIN 3.3 GM/DL (3.2-4.5); POTASSIUM 3.9 MMOL/L (3.6-5.0)
[2022-02-18 09:43] LABS: CALCIUM 8.5 MG/DL (8.5-10.1)
[2022-02-18 09:45] LABS: TOTAL PROTEIN 6.5 GM/DL (6.4-8.2)
[2022-02-18 09:46] LABS: BILIRUBIN,TOTAL 0.6 MG/DL (0.1-1.0)
[2022-02-18 09:48] LABS: CREATININE SERUM 1.56 MG/DL (0.60-1.30)
== END 2022-02-19 11:00 | disposition home or self-care (01) ==
LOC: SDC 09:09
PROVIDERS: ATTEND Internal Medicine
DX: A49.02 Methicillin resistant Staphylococcus aureus infection, unspecified site (principal); J90 Pleural effusion, not elsewhere classified
CPT/HCPCS: 36415; 80048; 80053; 80202; 85025; 85652; 96365; 96366

== ENCOUNTER 2022-02-26 12:19 | Outpatient (RCR) | payer BC ==
[2022-02-20 13:20] VITALS: BP 187/90
[2022-02-20 14:00] LABS: POTASSIUM 4.2 MMOL/L (3.6-5.0)
[2022-02-20 14:01] LABS: CALCIUM 8.7 MG/DL (8.5-10.1)
[2022-02-20 14:05] LABS: CREATININE SERUM 1.43 MG/DL (0.60-1.30)
[2022-02-20] MEDS: DAPTOmycin INJECTION 500 MG in NS (IVPB) 50 ML IV SCH (15:11)
[2022-02-21 11:00] VITALS: BP 166/76
[2022-02-21] MEDS: DAPTOmycin INJECTION 500 MG in NS (IVPB) 50 ML IV SCH (11:40)
[2022-02-22] MEDS: DAPTOmycin INJECTION 500 MG in NS (IVPB) 50 ML IV SCH (11:33)
[2022-02-22 11:36] VITALS: BP 161/85
[2022-02-23 10:50] VITALS: BP 165/81
[2022-02-23 11:13] LABS: HEMATOCRIT 27 % (40-54); HEMOGLOBIN 8.5 g/dL (13.3-17.7); MEAN CORPUSCULAR HEMOGLOBIN 29 pg (25-34); MEAN CORPUSCULAR HGB CONC 31 g/dL (32-36); MEAN CORPUSCULAR VOLUME 94 fL (80-99); PLATELET COUNT 219 10^3/uL (130-400); WHITE BLOOD COUNT 9.1 10^3/uL (4.3-11.0)
[2022-02-23 11:34] LABS: ALBUMIN 3.4 GM/DL (3.2-4.5); BILIRUBIN,TOTAL 0.7 MG/DL (0.1-1.0); CALCIUM 8.8 MG/DL (8.5-10.1); CREATININE SERUM 1.32 MG/DL (0.60-1.30); POTASSIUM 4.5 MMOL/L (3.6-5.0); TOTAL PROTEIN 6.6 GM/DL (6.4-8.2)
[2022-02-23 11:36] LABS: ERYTHROCYTE SEDIMENTATION RATE 29 MM/HR (0-30)
[2022-02-23] MEDS: DAPTOmycin INJECTION 500 MG in NS (IVPB) 50 ML IV SCH (12:18)
[2022-02-24] MEDS: DAPTOmycin INJECTION 500 MG in NS (IVPB) 50 ML IV SCH (12:02)
[2022-02-24 12:37] VITALS: BP 143/72
[2022-02-25] MEDS: DAPTOmycin INJECTION 500 MG in NS (IVPB) 50 ML IV SCH (09:31)
[2022-02-25 09:33] VITALS: BP 130/68
[~2022-02-26] VITALS: Ht 193 cm; Wt 86.8 kg
[2022-02-26 12:17] VITALS: BP 120/61
[~2022-02-26 12:19] MED LIST changes: +DAPTOMYCIN IV SCH; -NS (IVPB) 50 ML ONE; +NS IV SCH; -TROUGH ORDER-PHARMACY XX NR
[2022-02-26] MEDS: DAPTOmycin INJECTION 500 MG in NS (IVPB) 50 ML IV SCH (12:42)
== END 2022-02-26 14:21 | disposition home or self-care (01) ==
LOC: SDC 12:19
PROVIDERS: ATTEND Internal Medicine Infectious Disease
DX: R78.81 Bacteremia (principal); B95.62 Methicillin resistant Staphylococcus aureus infection as the cause of diseases classified elsewhere; N17.9 Acute kidney failure, unspecified
CPT/HCPCS: 36415; 80048; 80053; 82550; 85027; 85652; 96365

== ENCOUNTER 2022-02-28 11:06 | Outpatient (RCR) | payer BC ==
[~2022-02-28 11:06] MED LIST changes: -DAPTOMYCIN IV SCH; +HEParin (CENTRAL IV FLUSH) 500 UNIT/5 ML SYR IV PRN; +NIVOLUMAB 480 MG in NS (IVPB) 100 ML IV SCH; +NS (IVPB) 250 ML IV SCH; -NS IV SCH
[2022-02-28 11:41] LABS: BASOPHILS % (AUTO) 1 % (0-10); EOSINOPHILS # (AUTO) 0.6 10^3/uL (0.0-0.3); EOSINOPHILS % (AUTO) 7 % (0-10); HEMATOCRIT 29 % (40-54); LYMPHOCYTES # (AUTO) 1.5 10^3/uL (1.0-4.0); LYMPHOCYTES % (AUTO) 18 % (12-44); MEAN CORPUSCULAR HEMOGLOBIN 29 pg (25-34); MEAN CORPUSCULAR HGB CONC 31 g/dL (32-36); MEAN CORPUSCULAR VOLUME 93 fL (80-99); MONOCYTES # (AUTO) 0.7 10^3/uL (0.0-1.0); MONOCYTES % (AUTO) 8 % (0-12); NEUTROPHILS # (AUTO) 5.3 10^3/uL (1.8-7.8); NEUTROPHILS % (AUTO) 66 % (42-75); PLATELET COUNT 206 10^3/uL (130-400); WHITE BLOOD COUNT 8.1 10^3/uL (4.3-11.0)
[2022-02-28 12:03] LABS: ALBUMIN 3.8 GM/DL (3.2-4.5); BILIRUBIN,TOTAL 0.7 MG/DL (0.1-1.0); CALCIUM 9.2 MG/DL (8.5-10.1); CREATININE SERUM 1.45 MG/DL (0.60-1.30); TOTAL PROTEIN 7.1 GM/DL (6.4-8.2)
[2022-03-07] MEDS ORDERED: PRD20T PO (10:24)
== END 2022-03-02 | disposition home or self-care (01) ==
LOC: ONC 11:06
PROVIDERS: ATTEND Internal Medicine Hematology & Oncology
DX: C64.2 Malignant neoplasm of left kidney, except renal pelvis (principal); C78.01 Secondary malignant neoplasm of right lung; E11.22 Type 2 diabetes mellitus with diabetic chronic kidney disease; I12.9 Hypertensive chronic kidney disease with stage 1 through stage 4 chronic kidney disease, or unspecified chronic kidney disease; N18.30 Chronic kidney disease, stage 3 unspecified; D63.1 Anemia in chronic kidney disease; Z90.5 Acquired absence of kidney
CPT/HCPCS: 80053; 85025; G0463; 36415; 99213

== ENCOUNTER 2022-03-05 15:34 | Inpatient (IN) | payer BC, MEDICARE ==
[~2022-03-05] VITALS: Ht 193 cm; Wt 76.0 kg
[~2022-03-05 15:34] MED LIST changes: -HEParin (CENTRAL IV FLUSH) 500 UNIT/5 ML SYR IV PRN; -NIVOLUMAB 480 MG in NS (IVPB) 100 ML IV SCH; -NS (IVPB) 250 ML IV SCH
[2022-03-05] MEDS ORDERED: methylPREDNISolone 125 MG (Solu-MEDROL) VIAL IV STA (16:06)
[2022-03-05] MEDS ORDERED: NS IV 1000 ML 1,000 ML IV SCH ×2 (16:15)
[2022-03-05] MEDS ORDERED: CEFEPIME INJECTION 1,000 MG in NS (IVPB) 50 ML IV ONE (16:15)
[2022-03-05] MEDS ORDERED: VANCOMYCIN INJECTION 1,750 MG in NS IV 500 ML 500 ML IV ONE (16:15)
[2022-03-05] MEDS ORDERED: ASPIRIN 81 MG CHEW (CHILDREN'S ASA) PO ONE (16:15)
[2022-03-05] MEDS ORDERED: RT-ALBUTEROL/IPRATROPIUM 3 ML (DUONEB) VIAL INH ONE (16:15)
--- NOTE | 2022-03-05 16:15 | ED Chest Pain ---
General Chief Complaint: Abdominal/GI Problems Stated Complaint: LEFT SIDE PAIN Nursing Triage Note: PT AMB TO ER WITH C/O L SIDE PAIN SINCE YESTERDAY. PT DENIES INJURY. PT STATES IT BEGAN TO HURT WHILE WORKING ON HIS SHOWER YESTERDAY Source: patient Exam Limitations: no limitations History of Present Illness Date Seen by Provider: Mar 05, 2022 Time Seen by Provider: 15:59 Initial Comments Patient to the ER by private conveyance with chief complaint last couple days progressively worsening left-sided chest pain with tenderness to palpation over his left anterior lateral ribs. No fall or trauma. He has a history of COPD and used a breathing treatment this morning which seemed to help for about an hour. He is not having any productive cough but he does feel short of breath. He uses oxygen 5 L/min by nasal cannula at night to sleep but he has not been using it during the day until the last day or so. He just got out of the hospital 3 to 4 weeks ago for an infection in his left finger. He has had a left kidney removed due to cancer in the past. He is also had an umbilical and inguinal hernia repair. He does not have a history of heart disease. He does have a significant history of COPD. He still smokes a few cigarettes a day. The patient has a history of diabetes, hyperlipidemia, hypertension but no previous coronary disease. Allergies and Home Medications Allergies Coded Allergies: meperidine (Verified Allergy, Mild, RASH, Pt has received Fentanyl w/o issue, 12/15/18) Patient Home Medication List Home Medication List Reviewed: Yes Albuterol Sulfate (Proair Hfa) 1 Puff Puff, 2 PUFF IH Q4H PRN for SHORTNESS OF BREATH, (Reported) Entered as Reported by: ILA PAINTING on 07/10/21 1533 Amlodipine Besylate (Amlodipine Besylate) 2.5 Mg Tablet, 2.5 MG PO HS, (Reported) Entered as Reported by: ILA PAINTING on 11/08/21 1004 Ascorbic Acid (Vitamin C) 500 Mg Tablet, 500 MG PO DAILY, (Reported) Entered as Reported by: JADA KIMBALL on 09/21/15 1057 Cefdinir (Cefdinir) 300 Mg Capsule, 300 MG PO BID Prescribed by: SHAKA THOMAS on 11/10/21 1313 Cholecalciferol (Vitamin D3) (Vitamin D3) 25 Mcg Capsule, 25 MCG PO DAILY, (Reported) Entered as Reported by: ILA PAINTING on 07/10/21 1522 Colestipol HCl (Colestipol HCl) 1 Gm Tablet, 2 GM PO BID, (Reported) Entered as Reported by: JADA KIMBALL on 04/19/17 1519 Ferrous Sulfate (Ferosul) 325 Mg Tablet, 325 MG PO DAILY, (Reported) Entered as Reported by: JADA KIMBALL on 04/19/17 1519 Fluticasone Propionate (Flonase Allergy Relief) 9.9 Ml [place].susp, 1-2 SPRAY NSEACH DAILY PRN for CONGESTION, (Reported) Entered as Reported by: ILA PAINTING on 07/10/21 1533 Fluticasone/Vilanterol (Breo Ellipta 200-25 Mcg INH) 1 Each Blst.w.dev, 1 EACH IH DAILY, (Reported) Entered as Reported by: ILA PAINTING on 07/10/21 1533 Insulin Aspart (Novolog Flexpen) 100 Unit/Ml (3 Ml) Solution, 8 UNITS SQ AC, (Reported) Entered as Reported by: ILA PAINTING on 11/08/21 1004 Insulin Detemir (Levemir Flextouch) 100 Unit/Ml (3 Ml) Insuln.pen, 23 UNIT SQ HS, (Reported) Entered as Reported by: ILA PAINTING on 11/08/21 1004 Ipratropium/Albuterol Sulfate (Iprat-Albut 0.5-3(2.5) mg/3 ml) 0.5 Mg-3 Mg (2.5 Mg Base)/3 Ml Ampul.neb, 3 ML IH TID, (Reported) Entered as Reported by: ILA PAINTING on 11/08/21 1004 Lisinopril (Lisinopril) 20 Mg Tablet, 20 MG PO DAILY, (Reported) Entered as Reported by: LIA PAINTING on 11/08/21 1109 Lutein (Lutein) 20 Mg Tablet, 40 MG PO DAILY, (Reported) Entered as Reported by: JADA KIMBALL on 09/21/15 1057 Oxycodone HCl/Acetaminophen (Oxycodone-Acetaminophen 5-325) 5 Mg-325 Mg Tablet, 1 EA PO BID PRN for PAIN-MODERATE (5-7), (Reported) Entered as Reported by: ILA PAINTING on 11/08/21 1004 Review of Systems Review of Systems Constitutional: chills; No fever; malaise EENTM: No Blurred Vision, No Double Vision Respiratory: Denies Cough, Denies Orthopnea Cardiovascular: See HPI, Chest Pain; Denies Lightheadedness Gastrointestinal: Denies Abdominal Pain, Denies Constipated, Denies Diarrhea, Denies Nausea Genitourinary: Denies Burning, Denies Discharge Musculoskeletal: No back pain, No joint pain Skin: No pruritus, No rash Psychiatric/Neurological: Denies Headache, Denies Numbness All Other Systems Reviewed Negative Unless Noted: Yes Past Dgolfke-Fdcouc-Pmtxvg Hx Patient Social History Tobacco Use?: No Use of E-Cig and/or Vaping dev: No Substance use?: No Immunizations Up To Date Tetanus Booster (TDap): More than 5yrs First/Initial COVID19 Vaccinat: MAY 2021 Second COVID19 Vaccination Sal: JUNE 2021 Seasonal Allergies Seasonal Allergies: No Past Medical History Surgery/Hospitalization HX: pneumonia in june Surgeries: Yes (BILAT TKR, BMT, HERNIA X2;CATARACTS;THUMB SURGERY;L NEPHRECTOMY;LUNG BX) Abdominal, Ear Surgery, Eye Surgery, Gallbladder, Joint Replacement, Nephrectomy, Orthopedic Respiratory: Yes (LUNG BIOPSY/PNEUMOTHORAX; LUNG CANCER) Pneumonia, Chronic Bronchitis Currently Using CPAP: No Currently Using BIPAP: No Cardiac: Yes Hypertension, Rheumatic Fever Neurological: No Reproductive Disorders: No HIV/AIDS: No Genitourinary: Yes (RENAL CANCER--LEFT NEPHRECTOMY) Gastrointestinal: Yes Chronic Diarrhea, Polyps Musculoskeletal: Yes (FX L LEG,CLAVICLE,RIBS,FOOT; KNEE SX/SCREWS;OSTEOARTHRITIS KNEES/BILAT TKR) Degenerate Disk Disease, Arthritis, Chronic Back Pain, Fractures Endocrine: Yes (INSULIN + ORAL MEDICATIONS) Diabetes, Insulin dep HEENT: Yes (GLASSES, PARTIAL ) Cataract Loss of Vision: Denies Hearing Impairment: Hard of Hearing Cancer: Yes (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) Lung, Kidney Did You Recieve Any Treatments: Yes What Type of Treatment Did You: Chemotherapy, Surgical Intervention Psychosocial: No Integumentary: No Blood Disorders: No Adverse Reaction/Blood Tranf: No (N/A) Family Medical History Diabetes mellitus 19 FATHER 19 MOTHER G8 BROTHER FH: skin cancer 19 MOTHER Family history: Arthritis Family history: Coronary thrombosis Family history: Diabetes mellitus History of - respiratory disease No Family History of: Abdominal aortic aneurysm Morehead's disease Alcoholism Aphasia Cancer Cancer of colon Cataract Chest pain Congenital heart disease Congestive heart failure Cystic fibrosis Dementia Dysphagia Family history: Allergy Family history: Alzheimer's disease Family history: Asthma Family history: Breast disease Family history: Cardiovascular disease Family history: Gastrointestinal disease Family history: Glaucoma Family history: Hypertension Family history: Osteoporosis Family history: Thyroid disorder Headache Hearing loss Heart disease Hereditary disease History of - anemia History of - disorder History of drug abuse Human immunodeficiency virus (HIV) seropositivity Hypercholesterolemia Infertile Kidney disease Malignant neoplasm of lung Myocardial infarction Parkinson's disease Prostate cancer Psychotic disorder Seizure disorder Stroke Tuberculosis Visual impairment No Pertinent Family Hx SOCIAL HISTORY: -ETOH--DENIES USE -SMOKES 1 PPD -DRUGS--DENIES USE PSH: -HERNIA REPAIR X 2 -BILATERAL MYRINGOTOMY TUBES -CARPAL TUNNEL SURGERY -BILATERAL CATARACT SURGERY -SCREWS IN KNEE AND LATER REMOVED -BILATERAL KNEE REPLACEMENTS 2013 -LEFT NEPHRECTOMY FOR CANCER 2013 -LUNG BIOPSY WITH PNEUMOTHORAX Physical Exam Vital Signs Vital Signs - First Documented 03/05/22 03/05/22 03/05/22 15:54 16:29 16:51 Temp 37.6 Pulse 96 Resp 20 B/P (MAP) 156/72 (100) Pulse Ox 95 O2 Delivery Room Air O2 Flow Rate 30.00 Capillary Refill : Height, Weight, BMI Height: 6'4.00" Weight: 203lbs. 5.0oz. 92.754217qu; 21.00 BMI Method:Stated General Appearance: Chronically ill, Moderate Distress, Thin HEENT: PERRL/EOMI, Pharynx Normal; No Moist Mucous Membranes Neck: Full Range of Motion, Normal Inspection Respiratory: Lungs Clear, Accessory Muscle Use, Decreased Breath Sounds, Respiratory Distress (93% on room air with 22 to 24 breaths/min and retractions seen over the left ribs) Cardiovascular: Regular Rate, Rhythm, No Edema, Normal Peripheral Pulses Gastrointestinal: Normal Bowel Sounds, Non Tender, Soft Extremity: Normal Capillary Refill, Normal Inspection, No Pedal Edema Neurologic/Psychiatric: Alert, Oriented x3 Skin: Normal Color, Warm/Dry Focused Exam Lactate Level 03/05/22 16:09: Lactic Acid Level 1.37 Lactic Acid Level Laboratory Tests Test 03/05/22 16:09 Lactic Acid Level 1.37 MMOL/L (0.50-2.00) Procedures/Interventions Date of ETT Placement: Jul 07, 2021 Time of ETT Placement: 2236 Progress/Results/Core Measures Results/Orders Lab Results Laboratory Tests Test 03/05/22 16:09 03/05/22 16:19 03/05/22 16:23 Range/Units White Blood Count 13.1 H 4.3-11.0 10^3/uL Red Blood Count 3.11 L 4.30-5.52 10^6/uL Hemoglobin 9.2 L 13.3-17.7 g/dL Hematocrit 29 L 40-54 % Mean Corpuscular Volume 94 80-99 fL Mean Corpuscular Hemoglobin 30 25-34 pg Mean Corpuscular Hemoglobin Concent 32 32-36 g/dL Red Cell Distribution Width 15.8 H 10.0-14.5 % Platelet Count 268 130-400 10^3/uL Mean Platelet Volume 9.9 9.0-12.2 fL Immature Granulocyte % (Auto) 1 % Neutrophils (%) (Auto) 73 42-75 % Lymphocytes (%) (Auto) 11 L 12-44 % Monocytes (%) (Auto) 9 0-12 % Eosinophils (%) (Auto) 7 0-10 % Basophils (%) (Auto) 0 0-10 % Neutrophils # (Auto) 9.6 H 1.8-7.8 10^3/uL Lymphocytes # (Auto) 1.4 1.0-4.0 10^3/uL Monocytes # (Auto) 1.2 H 0.0-1.0 10^3/uL Eosinophils # (Auto) 0.9 H 0.0-0.3 10^3/uL Basophils # (Auto) 0.0 0.0-0.1 10^3/uL Immature Granulocyte # (Auto) 0.1 0.0-0.1 10^3/uL Prothrombin Time 14.0 12.2-14.7 SEC INR Comment 1.0 0.8-1.4 Activated Partial Thromboplast Time 30 24-35 SEC D-Dimer 2.18 H 0.00-0.49 UG/ML Sodium Level 140 135-145 MMOL/L Potassium Level 4.4 3.6-5.0 MMOL/L Chloride Level 102 98-107 MMOL/L Carbon Dioxide Level 28 21-32 MMOL/L Anion Gap 10 5-14 MMOL/L Blood Urea Nitrogen 23 H 7-18 MG/DL Creatinine 1.47 H 0.60-1.30 MG/DL Estimat Glomerular Filtration Rate 52 BUN/Creatinine Ratio 16 Glucose Level 154 H 70-105 MG/DL Lactic Acid Level 1.37 0.50-2.00 MMOL/L Calcium Level 9.4 8.5-10.1 MG/DL Corrected Calcium 9.5 8.5-10.1 MG/DL Total Bilirubin 0.5 0.1-1.0 MG/DL Aspartate Amino Transf (AST/SGOT) 16 5-34 U/L Alanine Aminotransferase (ALT/SGPT) 14 0-55 U/L Alkaline Phosphatase 63 40-136 U/L Troponin I < 0.028 <0.028 NG/ML C-Reactive Protein High Sensitivity 0.87 H 0.00-0.50 MG/DL B-Type Natriuretic Peptide 22.8 <100.0 PG/ML Total Protein 7.1 6.4-8.2 GM/DL Albumin 3.9 3.2-4.5 GM/DL Procalcitonin 0.05 <0.10 NG/ML Influenza Type A (RT-PCR) Not Detected Not Detecte Influenza Type B (RT-PCR) Not Detected Not Detecte SARS-CoV-2 RNA (RT-PCR) Not Detected Not Detecte Blood Gas Puncture Site R RADIAL Blood Gas Patient Temperature 37.6 Arterial Blood pH 7.34 *L 7.37-7.43 Arterial Blood Partial Pressure CO2 58 H 35-45 MMHG Arterial Blood Partial Pressure O2 66 L 79-93 MMHG Arterial Blood HCO3 30 H 23-27 MMOL/L Arterial Blood Total CO2 31.9 H 21.0-31.0 MMOL/L Arterial Blood Oxygen Saturation 95 94-100 % Arterial Blood Base Excess 4.8 H -2.5-2.5 MMOL/L Ino Test YES-POS Blood Gas Ventilator Setting NO Blood Gas Inspired Oxygen ROOM AIR My Orders Orders - SKYE DONAHUE Cbc With Automated Diff (03/05/22 16:06) Comprehensive Metabolic Panel (03/05/22 16:06) Blood Culture (03/05/22 16:06) Sputum Culture (03/05/22 16:06) Urinalysis (03/05/22 16:06) Urine Culture (03/05/22 16:06) Protime With Inr (03/05/22 16:06) Partial Thromboplastin Time (03/05/22 16:06) Ed Iv/Invasive Line Start (03/05/22 16:06) Ed Iv/Invasive Line Start (03/05/22 16:06) Ekg Tracing (03/05/22 16:06) Troponin I Evangelina (03/05/22 16:06) Vital Signs Adult Sepsis Patie Q15M (03/05/22 16:06) O2 (03/05/22 16:06) Remove Rings In Anticipation O (03/05/22 16:06) Lactic Acid Analyzer (03/05/22 16:06) Influenza A And B By Pcr (03/05/22 16:06) Ns Iv 1000 Ml (Sodium Chloride 0.9%) (03/05/22 16:15) Cefepime Injection (Maxipime Injection) (03/05/22 16:15) Vancomycin Injection (Vancomycin Injecti (03/05/22 16:15) Ed Iv/Invasive Line Start (03/05/22 16:06) Ns Iv 1000 Ml (Sodium Chloride 0.9%) (03/05/22 16:15) Covid 19 Inhouse Test (03/05/22 16:06) Arterial Blood Gas (03/05/22 16:06) Albuterol/Ipra Inhalation Soln (Duoneb I (03/05/22 16:15) Methylprednisolone Sod Succ (Solu-Medrol (03/05/22 16:06) Chest Pa/Lat (2 View) (03/05/22 16:06) Svn Small Volume Nebulizer (03/05/22 16:06) Bnp [place] (03/05/22 16:06) Hs C Reactive Protein (03/05/22 16:06) Procalcitonin (Pct) (03/05/22 16:06) Fibrin Degradation Products (03/05/22 16:06) Aspirin Chewable Tablet (Baby Aspirin Ch (03/05/22 16:15) Medications Given in ED Current Medications Medications Dose Ordered Sig/Bonnie Route Start Time Stop Time Status Last Admin Dose Admin Albuterol/ Ipratropium 3 ml ONCE ONCE INH 03/05/22 16:15 03/05/22 16:16 DC 03/05/22 16:29 3 ML Aspirin 324 mg ONCE ONCE PO 03/05/22 16:15 03/05/22 16:17 DC 03/05/22 16:24 324 MG Cefepime HCl 1000 mg/Sodium Chloride 50 ml @ 100 mls/hr ONCE ONCE IV 03/05/22 16:15 03/05/22 16:44 DC 03/05/22 17:12 100 MLS/HR Vital Signs/I&O 03/05/22 03/05/22 03/05/22 15:54 16:29 16:51 Temp 37.6 Pulse 96 83 Resp 20 28 B/P (MAP) 156/72 (100) Pulse Ox 95 100 O2 Delivery Room Air O2 Flow Rate 30.00 Blood Pressure Mean: 100 Progress Progress Note #1: Time: 16:19 Progress Note He certainly has other risk factors for coronary disease but he is quite tender over the ribs. pneumonia or COPD seems more likely. We will give him steroids, duo nebs and broad-spectrum antibiotics since he was recently in the hospital for an infection in his hand. Septic work-up including cultures and lactate, 2 L will be greater than 20 mL/kg. Progress Note #2: Time: 17:01 Progress Note ABG reveals respiratory acidosis and relative moderate hypoxemia. We will put him on BiPAP with a little oxygen. We will send him down for an x-ray. His markers of inflammation are not terribly elevated nor is his BNP. He sounds better after breathing treatment. We can now hear a little wheezing and some better air movement. He says the last time he was in the hospital he wore BiPAP and they thought he had pneumonia as well as he had a pleural effusion that they wanted to put a tube in but apparently they never did because he would not tolerate it. Creatinine is at baseline. Patient states he had to undergo temporary dialysis about a month or so ago related to acute kidney injury. Initial ECG Impression Date: Mar 05, 2022 Initial ECG Impression Time: 16:19 Initial ECG Rate: 86 Initial ECG Intervals: Normal Initial ECG Impression: Nonspecific Changes Comment Electronic ventricular pacemaker with no clinically relevant ST changes. Diagnostic Imaging Diagonstic Imaging: Xray Plain Films/CT/US/NM/MRI: chest (2 view) Comments NAME: JAROD LOJA REC#: [id number] PT STATUS: REG ER : 1955 PHYSICIAN: SKYE DONAHUE MD ADMIT DATE: 03/05/22/ER Draft Date of Exam:03/05/22 CHEST PA/LAT (2 VIEW) INDICATION: Left-sided chest pain since yesterday. TECHNIQUE: Two-view chest at 05:06 p.m. CORRELATION STUDY: 01/29/2022. FINDINGS: Heart size is within normal limits. Prominence of the central pulmonary arteries suggesting pulmonary arterial hypertension. Findings compatible with a prominent esophageal hernia. Hyperinflated lung mccray with emphysematous change. No acute consolidating infiltrate. Likely areas of pleural thickening at the particularly left costophrenic angle versus less likely small effusion. Likely minimal scar-like formation in the left lung base and right upper lung. Visualized osseous structures are unremarkable. IMPRESSION: 1. Chronic-appearing changes about the lung parenchyma. Question trace left pleural effusion versus pleural thickening. Dictated on workstation # [id number] Dict: 03/05/22 1709 Trans: 03/05/22 1721 [id number] Interpreted by: RENE MONTANA DO Electronically signed by: Reviewed: Reviewed by Me Departure Communication (Admissions) Time/Spoke to Admitting Phy: 17:15 Discussed the case with Dr. Pineda who agrees to admit the patient on BiPAP to cardiac stepdown. Treatment for COPD. Impression Primary Impression: COPD exacerbation Additional Impressions: Acute on chronic respiratory failure with hypoxia and hypercapnia Chest pain Qualified Codes: R07.9 - Chest pain, unspecified Disposition: ADMITTED INPATIENT Condition: Stable Admissions Decision to Admit Reason: Admit from ER (General) Decision to Admit/Date: Mar 05, 2022 Time/Decision to Admit Time: 17:00 Departure-Patient Inst. Referrals: SHAWN CALLEJAS MD (PCP/Family) Primary Care Physician SKYE DONAHUE Mar 05, 2022 16:15
[2022-03-05 16:25] LABS: BASOPHILS % (AUTO) 0 % (0-10); EOSINOPHILS # (AUTO) 0.9 10^3/uL (0.0-0.3); EOSINOPHILS % (AUTO) 7 % (0-10); HEMATOCRIT 29 % (40-54); HEMOGLOBIN 9.2 g/dL (13.3-17.7); LYMPHOCYTES # (AUTO) 1.4 10^3/uL (1.0-4.0); LYMPHOCYTES % (AUTO) 11 % (12-44); MEAN CORPUSCULAR HEMOGLOBIN 30 pg (25-34); MEAN CORPUSCULAR HGB CONC 32 g/dL (32-36); MEAN CORPUSCULAR VOLUME 94 fL (80-99); MEAN PLATELET VOLUME 9.9 fL (9.0-12.2); MONOCYTES # (AUTO) 1.2 10^3/uL (0.0-1.0); MONOCYTES % (AUTO) 9 % (0-12); NEUTROPHILS # (AUTO) 9.6 10^3/uL (1.8-7.8); NEUTROPHILS % (AUTO) 73 % (42-75); PLATELET COUNT 268 10^3/uL (130-400); WHITE BLOOD COUNT 13.1 10^3/uL (4.3-11.0)
[2022-03-05 16:30] LABS: ABG BASE EXCESS 4.8 MMOL/L (-2.5-2.5); ABG OXYGEN SATURATION 95 % (94-100); ABG PCO2 58 MMHG (35-45); ABG PO2 66 MMHG (79-93); ABG TCO2 31.9 MMOL/L (21.0-31.0)
[2022-03-05 16:31] LABS: ABG PH 7.34 (7.37-7.43); ALLENS TEST YES-POS; INSPIRED O2 ROOM AIR; PATIENT TEMP 37.6; VENTILATOR NO
[2022-03-05 16:41] LABS: ALANINE AMINOTRANSFERASE 14 U/L (0-55); ALBUMIN 3.9 GM/DL (3.2-4.5); ALKALINE PHOSPHATASE 63 U/L (40-136); BILIRUBIN,TOTAL 0.5 MG/DL (0.1-1.0); BUN/CREATININE RATIO 16; CALCIUM 9.4 MG/DL (8.5-10.1); CARBON DIOXIDE 28 MMOL/L (21-32); CHLORIDE 102 MMOL/L (98-107); CREATININE SERUM 1.47 MG/DL (0.60-1.30); GFR ESTIMATED 52; GLUCOSE 154 MG/DL (70-105); POTASSIUM 4.4 MMOL/L (3.6-5.0); SODIUM 140 MMOL/L (135-145); TOTAL PROTEIN 7.1 GM/DL (6.4-8.2)
[2022-03-05 17:00] LABS: FIBRIN DEGRADATION PRODUCTS 2.18 UG/ML (0.00-0.49)
--- NOTE | 2022-03-05 17:21 | Diagnostic Imaging Report ---
INDICATION: Left-sided chest pain since yesterday. TECHNIQUE: Two-view chest at 05:06 p.m. CORRELATION STUDY: 01/29/2022. FINDINGS: Heart size is within normal limits. Prominence of the central pulmonary arteries suggesting pulmonary arterial hypertension. Findings compatible with a prominent esophageal hernia. Hyperinflated lung mccray with emphysematous change. No acute consolidating infiltrate. Likely areas of pleural thickening at the particularly left costophrenic angle versus less likely small effusion. Likely minimal scar-like formation in the left lung base and right upper lung. Visualized osseous structures are unremarkable. IMPRESSION: 1. Chronic-appearing changes about the lung parenchyma. Question trace left pleural effusion versus pleural thickening. Dictated by: Dictated on workstation # [id number]
[2022-03-05 18:00] VITALS: BP 142/63
[2022-03-05 18:15] VITALS: BP 130/62
[2022-03-05] MEDS ORDERED: ACETAMINOPHEN 325 MG TABLET PO PRN (18:15)
[2022-03-05] MEDS ORDERED: ONDANSETRON 4 MG/2 ML (SDV) Z0FRAN IV PRN (18:15)
[2022-03-05 18:30] VITALS: BP 131/64
[2022-03-05] MEDS: NS IV 1000 ML 1,000 ML IV SCH (18:55)
[2022-03-05 20:00] VITALS: BP 136/66
[2022-03-05] MEDS: inSUlin ASPART (NovoLOG) 1 UNIT/0.01 ML (CHARGE PER UNIT) SC SCH (21:08)
[2022-03-05] MEDS: RT-ALBUTEROL/IPRATROPIUM 3 ML (DUONEB) VIAL INH SCH (21:28)
[2022-03-05 23:39] LABS: BILIRUBIN,URINE NEGATIVE (NEGATIVE); CLARITY,URINE CLEAR; COLOR,URINE YELLOW; GLUCOSE, URINE (UA) NEGATIVE (NEGATIVE); KETONES,URINE NEGATIVE (NEGATIVE); LEUKOCYTE ESTERASE ,URINE NEGATIVE (NEGATIVE); NITRITE,URINE NEGATIVE (NEGATIVE); PH,URINE 5.5 (5-9); PROTEIN,URINE NEGATIVE (NEGATIVE)
[2022-03-05 23:45] VITALS: BP_DIAS 138
[2022-03-05] MEDS: ENOXAPARIN 40 MG/0.4 ML (LOVENOX) SYR SC SCH (23:53)
[2022-03-05] MEDS: methylPREDNISolone 125 MG (Solu-MEDROL) VIAL IV SCH (23:54)
[2022-03-05] MEDS: CEFEPIME INJECTION 1,000 MG in NS (IVPB) 50 ML IV SCH (23:55)
[2022-03-06] VITALS (10 sets, daily range): BP systolic 124–177; BP diastolic 56–111
[2022-03-06 00:02] LABS: BACTERIA,URINE NEGATIVE /HPF; WBC,URINE 0-2 /HPF
[2022-03-06] MEDS: RT-ALBUTEROL/IPRATROPIUM 3 ML (DUONEB) VIAL INH SCH ×4 (03:20→21:09)
[2022-03-06 05:21] LABS: BASOPHILS % (AUTO) 0 % (0-10); EOSINOPHILS % (AUTO) 0 % (0-10); HEMATOCRIT 29 % (40-54); HEMOGLOBIN 9.3 g/dL (13.3-17.7); LYMPHOCYTES # (AUTO) 0.7 10^3/uL (1.0-4.0); LYMPHOCYTES % (AUTO) 7 % (12-44); MEAN CORPUSCULAR HEMOGLOBIN 30 pg (25-34); MEAN CORPUSCULAR HGB CONC 32 g/dL (32-36); MEAN CORPUSCULAR VOLUME 94 fL (80-99); MEAN PLATELET VOLUME 9.4 fL (9.0-12.2); MONOCYTES # (AUTO) 0.1 10^3/uL (0.0-1.0); MONOCYTES % (AUTO) 1 % (0-12); NEUTROPHILS % (AUTO) 92 % (42-75); PLATELET COUNT 254 10^3/uL (130-400); WHITE BLOOD COUNT 10.9 10^3/uL (4.3-11.0)
[2022-03-06 05:43] LABS: BUN/CREATININE RATIO 19; CALCIUM 8.7 MG/DL (8.5-10.1); CARBON DIOXIDE 20 MMOL/L (21-32); CHLORIDE 108 MMOL/L (98-107); CREATININE SERUM 1.35 MG/DL (0.60-1.30); GFR ESTIMATED 58; GLUCOSE 261 MG/DL (70-105); POTASSIUM 4.6 MMOL/L (3.6-5.0); SODIUM 139 MMOL/L (135-145)
[2022-03-06] MEDS: NS IV 1000 ML 1,000 ML IV SCH (06:12)
[2022-03-06] MEDS: CEFEPIME INJECTION 1,000 MG in NS (IVPB) 50 ML IV SCH ×2 (06:13→11:08)
[2022-03-06] MEDS: methylPREDNISolone 125 MG (Solu-MEDROL) VIAL IV SCH (06:13)
[2022-03-06] MEDS: inSUlin ASPART (NovoLOG) 1 UNIT/0.01 ML (CHARGE PER UNIT) SC SCH ×7 (06:14→21:39)
[2022-03-06 06:44] LABS: ELLIPT/OVALOCYTES SLIGHT; LYMPHOCYTES % (MANUAL) 5 %; MICROCYTOSIS SLIGHT; NEUTROPHILS % (MANUAL) 95 %; SPHEROCYTES SLIGHT
[2022-03-06] MEDS ORDERED: FLU QUAD HIGH DOSE 240 MCG/0.7 ML 2022-23 (FLUZONE) IM ONE (07:00)
[2022-03-06] MEDS: ASPIRIN 81 MG CHEW (CHILDREN'S ASA) PO SCH (08:06)
--- NOTE | 2022-03-06 08:46 | Diagnostic Imaging Report ---
INDICATION: COPD Frontal chest obtained at 0428 a.m. Compared to yesterday. Heart is borderline in size. There is hyperinflation compatible with COPD with some volume loss in the left hemithorax. There is a minimal amount of pleural fluid versus thickening left costophrenic angle. There is no alveolar consolidation. IMPRESSION: COPD changes. Some volume loss is noted in the left hemithorax with small left pleural effusion versus pleural thickening. There is no new consolidation. Dictated by: Dictated on workstation # [id number]
[2022-03-06] MEDS ORDERED: GABA300C PO (09:05)
[2022-03-06] MEDS ORDERED: AMLO-251 PO (09:05)
[2022-03-06] MEDS ORDERED: PYRI50CA PO (09:05)
[2022-03-06] MEDS ORDERED: COLE1TAB PO (09:05)
--- NOTE | 2022-03-06 10:29 | History & Physical ---
JOAQUIM HIGHTOWER 03/06/22 1029: History of Present Illness History of Present Illness Reason for visit/HPI CC: COPD Exacerbation HPI: Paul is a 66yo M with a past medical history of COPD, HTN, HLD, DM type 2, degenerative disc disease, and arthritis. He presented to the ER yesterday evening with a chief complaint of left sided chest pain. The pain began Saturday03/04/22 and he described the pain as sharp and aching. The pain is worse when he coughs and he rates it a 10. Patient states he has had this pain before when he had pneumonia in June. The pain continued to get worse and yesterday he was having trouble breathing so he used a breathing treatment at home which helped for a few hours. Patient is normally on 5L/min of O2 at night but started wearing the O2 during the day due to feeling SOB. Patient reports coughing up white phlegm the past week. Denied having fever and chills. Patient was hospitalized a month ago for sepsis and an infection of the finger. He had to have dialysis done while he was hospitalized for the sepsis. In the ER he had an elevated WBC of 13.1 and a creatinine of 1.47 which is his baseline. A chest X- ray showed a possible pleural effusion or pleural thickening and no consolidations. Patient was sitting up watching television at the beginning of the interview. He stated that he is feeling much better today compared to yesterday and that the pain in his left side has subsided. Patient slept with BiPAP on last night without any issues. Denies chest pain, and SOB. Date of Admission Mar 05, 2022 at 17:15 Date Seen by a Provider: Mar 06, 2022 Time Seen by a Provider: 09:00 I consulted on this patient on 03/06/22 10:12 Attending Physician Sha Clayton MD Admitting Physician Admitting Physician: Ryanne Dyson MD Attending Physician: Ryanne Dyson MD Consult Allergies and Home Medications Allergies Coded Allergies: meperidine (Verified Allergy, Mild, RASH, Pt has received Fentanyl w/o issue, 12/15/18) Patient Home Medication List Amlodipine Besylate (Amlodipine Besylate) 10 Mg Tablet, 10 MG PO HS, (Reported) Entered as Reported by: ILA PAINTING on 03/06/22 09 Last Action: Reviewed Ascorbic Acid (Vitamin C) 500 Mg Tablet, 500 MG PO TID, (Reported) Entered as Reported by: JADA KIMBALL on 09/21/15 1057 Last Action: Held Cholecalciferol (Vitamin D3) (Vitamin D3) 25 Mcg Capsule, 25 MCG PO DAILY, (Reported) Entered as Reported by: ILA PAINTING on 07/10/21 152 Last Action: Converted Colestipol HCl (Colestipol HCl) 1 Gram Tablet, 2 GM PO DAILY BEFORE BREAKFAST, (Reported) Entered as Reported by: JADA KIMBALL on 04/19/17 151 Last Action: Continued Colestipol HCl (Colestipol HCl) 1 Gram Tablet, 2 GM PO 1800 AFTER DINNER, (Reported) Entered as Reported by: ILA PAINTING on 03/06/22904 Last Action: Continued Fluticasone/Vilanterol (Breo Ellipta 200-25 Mcg INH) 1 Each Blst.w.dev, 1 EACH IH DAILY, (Reported) Entered as Reported by: ILA PAINTING on 07/10/21 153 Last Action: Continued Gabapentin (Neurontin) 300 Mg Capsule, 300 MG PO TID, (Reported) Entered as Reported by: ILA PAINTING on 03/06/22904 Last Action: Continued Insulin Aspart (Novolog Flexpen) 100 Unit/Ml (3 Ml) Solution, 8 UNITS SQ AC, (Reported) Entered as Reported by: ILA PAINTING on 11/08/211003 Last Action: Held Insulin Detemir (Levemir Flextouch) 100 Unit/Ml (3 Ml) Insuln.pen, 23 UNIT SQ HS, (Reported) Entered as Reported by: ILA PAINTING on 11/08/211003 Last Action: Held Ipratropium/Albuterol Sulfate (Iprat-Albut 0.5-3(2.5) mg/3 ml) 0.5 Mg-3 Mg (2.5 Mg Base)/3 Ml Ampul.neb, 3 ML IH TID, (Reported) Entered as Reported by: ILA PAINTING on 11/08/211003 Last Action: Held Lisinopril (Lisinopril) 20 Mg Tablet, 20 MG PO DAILY, (Reported) Entered as Reported by: ILA PAINTING on 11/08/21 1109 Last Action: Continued Lutein (Lutein) 20 Mg Tablet, 20 MG PO DAILY, (Reported) Entered as Reported by: JADA KIMBALL on 09/21/15 1057 Last Action: Held Pyridoxine HCl (Vitamin B-6) 50 Mg Capsule, 50 MG PO DAILY, (Reported) Entered as Reported by: ILA PAINTING on 03/06/22 0905 Last Action: Held Discontinued Medications Albuterol Sulfate (Proair Hfa) 1 Puff Puff, 2 PUFF IH Q4H PRN for SHORTNESS OF BREATH, (Reported) Discontinued Reason: No Longer Taking Entered as Reported by: ILA PAINTING on 07/10/21 153 Last Action: Discontinued Amlodipine Besylate (Amlodipine Besylate) 2.5 Mg Tablet, 2.5 MG PO HS, (Reported) Discontinued Reason: No Longer Taking Entered as Reported by: ILA PAINTING on 11/08/21 100 Last Action: Discontinued Cefdinir (Cefdinir) 300 Mg Capsule, 300 MG PO BID Discontinued Reason: No Longer Taking Prescribed by: SHAKA THOMAS on 11/10/21 1313 Last Action: Discontinued Ferrous Sulfate (Ferosul) 325 Mg Tablet, 325 MG PO DAILY, (Reported) Discontinued Reason: No Longer Taking Entered as Reported by: JADA KIMBALL on 04/19/17 1519 Last Action: Discontinued Fluticasone Propionate (Flonase Allergy Relief) 9.9 Ml Erie.susp, 1-2 SPRAY NSEACH DAILY PRN for CONGESTION, (Reported) Discontinued Reason: No Longer Taking Entered as Reported by: ILA PAINTING on 07/10/21 153 Last Action: Discontinued Oxycodone HCl/Acetaminophen (Oxycodone-Acetaminophen 5-325) 5 Mg-325 Mg Tablet, 1 EA PO BID PRN for PAIN-MODERATE (5-7), (Reported) Discontinued Reason: No Longer Taking Entered as Reported by: ILA PAINTING on 11/08/21 100 Last Action: Discontinued Past [id number]-Jlsuyo-[id number] Hx Patient Social History Marrital Status: single Living Status: Lives in his own home with a roommate Employed/Student: unemployed Tobacco Use?: Yes (25 pack year history) Tobacco type used: Cigarettes Smoking Status: Current Someday Smoker Use of E-Cig and/or Vaping dev: No Substance use?: No Alcohol Use?: No Pt feels they are or have been: No Immunizations Up To Date Date of Influenza Vaccine: Mar 03, 2018 First/Initial COVID19 Vaccinat: MAY 2021 Second COVID19 Vaccination Sal: JUNE 2021 Tetanus Booster (TDap): Unknown Date of Pneumonia Vaccine: Sep 08, 2014 Seasonal Allergies Seasonal Allergies: Yes Current Status Communicates: Verbally Primary Language: [place] Preferred Spoken Language: [place] Sensory deficits: Vision impairment Past Medical History Surgeries: Abdominal, Ear Surgery, Eye Surgery, Gallbladder, Joint Replacement, Nephrectomy, Orthopedic Pneumonia, Chronic Bronchitis, COPD Currently Using CPAP: No Currently Using BIPAP: No Hypertension, Rheumatic Fever HIV/AIDS: No Chronic Diarrhea, Polyps Degenerate Disk Disease, Arthritis, Chronic Back Pain, Fractures Diabetes, Insulin dep Cataract Loss of Vision: Denies Hearing Impairment: Hard of Hearing Lung, Kidney Did You Recieve Any Treatments: Yes What Type of Treatment Did You: Chemotherapy, Surgical Intervention Blood Disorders: No Adverse Reaction/Blood Tranf: No (N/A) Family Medical History Diabetes mellitus 19 FATHER 19 MOTHER G8 BROTHER FH: skin cancer 19 MOTHER Family history: Arthritis Family history: Coronary thrombosis Family history: Diabetes mellitus History of - respiratory disease No Family History of: Abdominal aortic aneurysm Karlos's disease Alcoholism Aphasia Cancer Cancer of colon Cataract Chest pain Congenital heart disease Congestive heart failure Cystic fibrosis Dementia Dysphagia Family history: Allergy Family history: Alzheimer's disease Family history: Asthma Family history: Breast disease Family history: Cardiovascular disease Family history: Gastrointestinal disease Family history: Glaucoma Family history: Hypertension Family history: Osteoporosis Family history: Thyroid disorder Headache Hearing loss Heart disease Hereditary disease History of - anemia History of - disorder History of drug abuse Human immunodeficiency virus (HIV) seropositivity Hypercholesterolemia Infertile Kidney disease Malignant neoplasm of lung Myocardial infarction Parkinson's disease Prostate cancer Psychotic disorder Seizure disorder Stroke Tuberculosis Visual impairment Heart Disease, Diabetes SOCIAL HISTORY: -ETOH--DENIES USE -SMOKES 1 PPD -DRUGS--DENIES USE PSH: -HERNIA REPAIR X 2 -BILATERAL MYRINGOTOMY TUBES -CARPAL TUNNEL SURGERY -BILATERAL CATARACT SURGERY -SCREWS IN KNEE AND LATER REMOVED -BILATERAL KNEE REPLACEMENTS 2013 -LEFT NEPHRECTOMY FOR CANCER 2013 -LUNG BIOPSY WITH PNEUMOTHORAX Review of Systems Constitutional: No chills, No dizziness, No fever, No weakness EENTM: nose congestion; No hearing loss, No vision loss Respiratory: cough, phlegm; No short of breath Cardiovascular: No chest pain, No edema, No palpitations Gastrointestinal: No abdominal pain, No constipation; diarrhea (Chronic); No hematemesis, No loss of appetite, No melena, No nausea, No vomiting Genitourinary: No decreased output, No dysuria, No hematuria Musculoskeletal: No joint swelling, No muscle pain, No muscle weakness Skin: No change in color, No rash Psychiatric/Neurological: Denies Anxiety, Denies Depressed, Denies Headache, Denies Numbness, Denies Tremors, Denies Weakness Physical Exam Vital Signs Vital Signs - First Documented 03/05/22 03/05/22 03/05/22 03/05/22 15:54 16:29 16:51 19:29 Temp 37.6 Pulse 96 Resp 20 B/P (MAP) 156/72 (100) Pulse Ox 95 O2 Delivery Room Air O2 Flow Rate 30.00 FiO2 21 Capillary Refill : Height, Weight, BMI Height: 6'4.00" Weight: 203lbs. 5.0oz. 92.820547pk; 21.00 BMI Method:Stated General Appearance: No Apparent Distress, WD/WN HEENT: Normal ENT Inspection, Moist Mucous Membranes Neck: Full Range of Motion, Normal Inspection, Non Tender, Supple Respiratory: Chest Non Tender, Lungs Clear, No Accessory Muscle Use, No Respiratory Distress, Other (Reduced breath sounds) Cardiovascular: Regular Rate, Rhythm, No Edema, No Gallop, No Murmur, Normal Peripheral Pulses (3+ bilateral radial and dorsalis pedis pulses) Gastrointestinal: No Organomegaly, No Pulsatile Mass, Non Tender, Soft Back: Normal Inspection, No Vertebral Tenderness Extremity: Normal Capillary Refill, Normal Inspection, Normal Range of Motion, Non Tender, No Calf Tenderness, No Pedal Edema Neurologic/Psychiatric: Alert, Oriented x3, No Motor/Sensory Deficits Skin: Normal Color, Warm/Dry Assessment/Plan Assessment and Plan 1) Acute on chronic respiratory failure with hypoxia and hypercapnia Patient tolerating BiPAP at night, will sleep without the BiPAP tonight and with nasal cannula 5L/min On room air during the day Prednisone 40mg 1xD with a taper prescribed Repeat chest X-ray today did not show any consolidations and he is unlikely to have a pneumonia so Abx were discontinued Patient's chest pain seems to be related to his respiratory failure and not associated with a cardiac issue, without a history of cardiac disease and since he has already received a dose of aspirin it is okay to discontinue the aspirin at this time 2) Diabetes mellitus type II, insulin dependent Restart home medications of Aspart on sliding scale and Detemir 3) CKD Stage 3A GFR of 58 4) Elevated d-dimer Patient has a Wells score of 0 and unlikely to have a pulmonary embolism Age adjusted d-dimer also indicated that VTE is unlikely 5) Anemia Hg is stable at 9.3 Likely due to CKD Patient will be seeing a credit card associate in a month and should follow up with them 6) HTN 7) HLD 8) Immobile Enoxaparin 40mg 1xD Clinical Quality Measures Smoking Cessation Counseling: Counseling-Symptomatic: 3-10 Minutes Discussed Options Including: Nicotine Patch RYANNE DYSON MD 03/06/22 1402: Allergies and Home Medications Allergies Coded Allergies: meperidine (Verified Allergy, Mild, RASH, Pt has received Fentanyl w/o issue, 12/15/18) Patient Home Medication List Home Medication List Reviewed: Yes Amlodipine Besylate (Amlodipine Besylate) 10 Mg Tablet, 10 MG PO HS, (Reported) Entered as Reported by: ILA PAINTING on 03/06/22904 Last Action: Reviewed Ascorbic Acid (Vitamin C) 500 Mg Tablet, 500 MG PO TID, (Reported) Entered as Reported by: JADA KIMBALL on 09/21/15 1057 Last Action: Held Cholecalciferol (Vitamin D3) (Vitamin D3) 25 Mcg Capsule, 25 MCG PO DAILY, (Reported) Entered as Reported by: ILA PAINTING on 07/10/21 152 Last Action: Converted Colestipol HCl (Colestipol HCl) 1 Gram Tablet, 2 GM PO DAILY BEFORE BREAKFAST, (Reported) Entered as Reported by: JADA KIMBALL on 04/19/17 1519 Last Action: Continued Colestipol HCl (Colestipol HCl) 1 Gram Tablet, 2 GM PO 1800 AFTER DINNER, (Reported) Entered as Reported by: ILA PAINTING on 03/06/22904 Last Action: Continued Fluticasone/Vilanterol (Breo Ellipta 200-25 Mcg INH) 1 Each Blst.w.dev, 1 EACH IH DAILY, (Reported) Entered as Reported by: ILA PAINTING [place] 21532 Last Action: Continued Gabapentin (Neurontin) 300 Mg Capsule, 300 MG PO TID, (Reported) Entered as Reported by: ILA PAINTING on 03/06/22904 Last Action: Continued Insulin Aspart (Novolog Flexpen) 100 Unit/Ml (3 Ml) Solution, 8 UNITS SQ AC, (Reported) Entered as Reported by: ILA PAINTING on 11/08/211003 Last Action: Held Insulin Detemir (Levemir Flextouch) 100 Unit/Ml (3 Ml) Insuln.pen, 23 UNIT SQ HS, (Reported) Entered as Reported by: ILA PAINTING on 11/08/211003 Last Action: Held Ipratropium/Albuterol Sulfate (Iprat-Albut 0.5-3(2.5) mg/3 ml) 0.5 Mg-3 Mg (2.5 Mg Base)/3 Ml Ampul.neb, 3 ML IH TID, (Reported) Entered as Reported by: ILA PAINTING on 11/08/211003 Last Action: Held Lisinopril (Lisinopril) 20 Mg Tablet, 20 MG PO DAILY, (Reported) Entered as Reported by: ILA PAINTING on 11/08/21 110 Last Action: Continued Lutein (Lutein) 20 Mg Tablet, 20 MG PO DAILY, (Reported) Entered as Reported by: JADA KIMBALL on 09/21/15 1057 Last Action: Held Pyridoxine HCl (Vitamin B-6) 50 Mg Capsule, 50 MG PO DAILY, (Reported) Entered as Reported by: ILA PAINTING on 03/06/22904 Last Action: Held Discontinued Medications Albuterol Sulfate (Proair Hfa) 1 Puff Puff, 2 PUFF IH Q4H PRN for SHORTNESS OF BREATH, (Reported) Discontinued Reason: No Longer Taking Entered as Reported by: ILA PAINTING on 07/10/211532 Last Action: Discontinued Amlodipine Besylate (Amlodipine Besylate) 2.5 Mg Tablet, 2.5 MG PO HS, (Reported) Discontinued Reason: No Longer Taking Entered as Reported by: ILA PAINTING on 11/08/211003 Last Action: Discontinued Cefdinir (Cefdinir) 300 Mg Capsule, 300 MG PO BID Discontinued Reason: No Longer Taking Prescribed by: SHAKA THOMAS on 11/10/21 1313 Last Action: Discontinued Ferrous Sulfate (Ferosul) 325 Mg Tablet, 325 MG PO DAILY, (Reported) Discontinued Reason: No Longer Taking Entered as Reported by: JADA KIMBALL on 04/19/17 1519 Last Action: Discontinued Fluticasone Propionate (Flonase Allergy Relief) 9.9 Ml [place]rie.susp, 1-2 SPRAY NSEACH DAILY PRN for CONGESTION, (Reported) Discontinued Reason: No Longer Taking Entered as Reported by: ILA PAINTING on 07/10/21 1533 Last Action: Discontinued Oxycodone HCl/Acetaminophen (Oxycodone-Acetaminophen 5-325) 5 Mg-325 Mg Tablet, 1 EA PO BID PRN for PAIN-MODERATE (5-7), (Reported) Discontinued Reason: No Longer Taking Entered as Reported by: ILA PAINTING on 11/08/21 1004 Last Action: Discontinued Past Rsywkil-Fzttra-Bwohui Hx Family Medical History Diabetes mellitus 19 FATHER 19 MOTHER G8 BROTHER FH: skin cancer 19 MOTHER Family history: Arthritis Family history: Coronary thrombosis Family history: Diabetes mellitus History of - respiratory disease No Family History of: Abdominal aortic aneurysm Pounding Mill's disease Alcoholism Aphasia Cancer Cancer of colon Cataract Chest pain Congenital heart disease Congestive heart failure Cystic fibrosis Dementia Dysphagia Family history: Allergy Family history: Alzheimer's disease Family history: Asthma Family history: Breast disease Family history: Cardiovascular disease Family history: Gastrointestinal disease Family history: Glaucoma Family history: Hypertension Family history: Osteoporosis Family history: Thyroid disorder Headache Hearing loss Heart disease Hereditary disease History of - anemia History of - disorder History of drug abuse Human immunodeficiency virus (HIV) seropositivity Hypercholesterolemia Infertile Kidney disease Malignant neoplasm of lung Myocardial infarction Parkinson's disease Prostate cancer Psychotic disorder Seizure disorder Stroke Tuberculosis Visual impairment Assessment/Plan Assessment and Plan Patient is admitted to the hospital secondary to acute on chronic mixed hypoxic/hypercapnic respiratory failure due to COPD exacerbation. He reports feeling much better this morning and is breathing easier. He was on BiPAP all night and came off around 7:00 this morning. He is currently on room air and doing well. He reports he does have an appointment with a mysql database developer next week. We will keep him in the hospital at least another night to monitor how he does. Hopefully off of BiPAP overnight. We will continue his steroids but transition to oral. It does not appear that he has any indication of infection as his chest x-ray is negative for pneumonia, his white count has resolved, he is afebrile, and he has a negative procalcitonin. Because of this we will discontinue his IV antibiotics.We will continue his Levemir and add sliding scale insulin. I anticipate higher blood sugars due to his steroids. Blood pressures have been well controlled so we will hold his home antihypertensives. Will resume amlodipine if these start to trend up. Admission Diagnosis Admission Status: Inpatient Order (span 2 midnights) Reason for Inpatient Admission: detailed below Supervisory-Addendum Brief Verification & Attestation Participated in pt care: history, MDM, physical Personally performed: exam, history, MDM, supervision of care Care discussed with: Medical Student Procedures: n/a Results interpretation: Verified all documentation Verification and Attestation of Medical Student E/M Service A medical student performed and documented this service in my presence. I reviewed and verified all information documented by the medical student and made modifications to such information, when appropriate. I personally performed the physical exam and medical decision making. Ryanne Dyson, Mar 06, 2022,14:02 JOAQUIM HIGHTOWER Mar 06, 2022 10:29 RYANNE DYSON MD Mar 06, 2022 14:02
[2022-03-06] MEDS: GABAPENTIN 300 MG (NEURONTIN) CAP PO SCH ×2 (12:38→21:38)
[2022-03-06] MEDS ORDERED: COLESTIPOL 1 GM (COLESTID) TAB PO SCH (18:00)
[2022-03-06] MEDS: ENOXAPARIN 40 MG/0.4 ML (LOVENOX) SYR SC SCH (21:39)
[2022-03-07] MEDS: RT-ALBUTEROL/IPRATROPIUM 3 ML (DUONEB) VIAL INH SCH ×3 (03:08→15:30)
[2022-03-07 03:48] VITALS: BP 133/70
[2022-03-07] MEDS ORDERED: COLESTIPOL 1 GM (COLESTID) TAB PO SCH (06:00)
[2022-03-07] MEDS: inSUlin ASPART (NovoLOG) 1 UNIT/0.01 ML (CHARGE PER UNIT) SC SCH ×4 (06:18→11:46)
[2022-03-07] MEDS ORDERED: predniSONE 20 MG TAB PO SCH (07:00)
[2022-03-07 08:00] VITALS: BP 151/70
[2022-03-07] MEDS ORDERED: RT--FLUTICASONE/SALMETEROL 232-14 (AIRDUO RespiCLICK) IH SCH (08:00)
[2022-03-07] MEDS: GABAPENTIN 300 MG (NEURONTIN) CAP PO SCH ×2 (08:20→13:54)
[2022-03-07] MEDS: ASPIRIN 81 MG CHEW (CHILDREN'S ASA) PO SCH (08:20)
[2022-03-07] MEDS ORDERED: VITAMIN D3 25 MCG (1,000 UNITS) TABLET PO SCH (09:00)
[2022-03-07] MEDS ORDERED: lisINopril 20 MG (PRINIVIL) TABLET PO SCH (09:00)
[2022-03-07] MEDS ORDERED: FLUTICASONE/VILANTEROL 200 MCG 14'S (BREO) IH SCH (09:00)
[2022-03-07] MEDS ORDERED: NON-FORMULARY MEDICATION 1 EA EA (Cholecalciferol (Vitamin D3) (Vitamin D3) 25 MCG) PO SCH (09:00)
[2022-03-07] MEDS ORDERED: PRD20T PO (10:24)
[2022-03-07 12:00] VITALS: BP 135/83
--- NOTE | 2022-03-07 13:43 | Discharge Summary ---
JOAQUIM HIGHTOWER 03/07/22 1342: Diagnosis/Chief Complaint Date of Admission Mar 05, 2022 at 17:15 Date of Discharge Mar 07, 2022 Discharge Date: Mar 07, 2022 Admission Diagnosis Acute on chronic respiratory failure hypoxia and hypercapnia Primary Care Sha Clayton MD Discharge Diagnosis Acute on chronic respiratory failure hypoxia and hypercapnia Discharge Summary Discharge Physical Exam Allergies: Coded Allergies: meperidine (Verified Allergy, Mild, RASH, Pt has received Fentanyl w/o issue, 12/15/18) Vitals & I&Os Vital Signs Date Time Temp Pulse Resp B/P (MAP) Pulse Ox O2 Delivery O2 Flow Rate FiO2 03/07/22 13:00 87 03/07/22 12:00 37.1 20 135/83 (100) 94 Room Air 03/07/22 10:38 2.00 03/05/22 19:29 21 General Appearance: No Apparent Distress, WD/WN HEENT: Normal ENT Inspection, Moist Mucous Membranes Respiratory: Chest Non Tender, No Accessory Muscle Use, No Respiratory Distress, Wheezing (Wheezing with exhalation) Cardiovascular: Regular Rate, Rhythm, No Edema, No Murmur, Normal Peripheral Pulses (3+ radialis) Gastrointestinal: No Organomegaly, No Pulsatile Mass, Non Tender, Soft Extremity: Normal Capillary Refill, Normal Range of Motion, Non Tender, No Calf Tenderness, No Pedal Edema Skin: Normal Color, Warm/Dry Neurologic/Psychiatric: Alert, Oriented x3, No Motor/Sensory Deficits, Normal Mood/Affect Hospital Course Was the Problem List Reviewed?: Yes Paul is a 66yo M with a past medical history of COPD, CKD stage 3A, HTN, HLD, DM type 2, degenerative disc disease, and arthritis. He presented to the ER on 03/05/22 with a chief complaint of left sided chest pain. The pain began Saturday03/04/22 and he described the pain as sharp and aching. Patient states he has had this pain before when he had pneumonia in June. Paul has been hospitalized multiple times for COPD exacerbation in the past. Patient normally wears 5L/min of O2 at night but was put on oxygen when he came into the ER. In the ER he had an elevated WBC of 13.1 and a creatinine of 1.47 which is his baseline. A chest X-ray showed a possible pleural effusion or pleural thickening and no conso lidations. Patient was admitted for acute on chronic respiratory failure hypoxia and hypercapnia. He was first treated with Abx for possible pneumonia but chest X-ray never showed any consolidations and his WBC improved without being on Abx so they were discontinued. He was initially on 3L/min of oxygen during the day and BiPAP at night but he has been tolerating being on room air. Patient was sitting up eating lunch at the beginning of the interview today. He stated that he is feeling much better and that the pain in his left side is a 2/10. The patient is wanting to go home. He is stable and ready to be discharged. He will have a home oxygen test done before he leaves, it is recommended that he continues to sleep with the 5L/min at night since his oxygen did drop while he was sleeping. He will finish a 3 day course of prednisone when he goes home as well. Labs (last 24 hrs) Laboratory Tests 03/06/22 15:51: Glucometer 334H 03/06/22 21:11: Glucometer 273H 03/07/22 06:09: Glucometer 123H 03/07/22 10:49: Glucometer 244H Microbiology 03/05/22 Urine Culture - Preliminary, Resulted NO GROWTH 03/05/22 Blood Culture - Preliminary, Resulted No growth Patient resulted labs reviewed. Pending Labs Laboratory Tests 03/07/22 06:09: Glucometer 123 03/07/22 10:49: Glucometer 244 Discussion & Recommendations Discharge Planning: >30 minutes discharge planning Discharge Home Medications: Active Scripts Active Prednisone 20 Mg Tab 40 Mg PO DAILY@0700 3 Days Reported Vitamin B-6 (Pyridoxine HCl) 50 Mg Capsule 50 Mg PO DAILY Neurontin (Gabapentin) 300 Mg Capsule 300 Mg PO TID Colestipol HCl 1 Gram Tablet 2 Gm PO 1800 AFTER DINNER TAKES 2 (1GM) TABS Amlodipine Besylate 10 Mg Tablet 10 Mg PO HS Lisinopril 20 Mg Tablet 20 Mg PO DAILY Novolog Flexpen (Insulin Aspart) 100 Unit/Ml (3 Ml) Solution 8 Units SQ AC LAST FILLED 07-12-2021 #5 PENS/62 DAY SUPPLY Levemir Flextouch (Insulin Detemir) 100 Unit/Ml (3 Ml) Insuln.pen 23 Unit SQ HS Iprat-Albut 0.5-3(2.5) mg/3 ml (Ipratropium/Albuterol Sulfate) 0.5 Mg-3 Mg (2.5 Mg Base)/3 Ml Ampul.neb 3 Ml IH TID Breo Ellipta 200-25 Mcg INH (Fluticasone/Vilanterol) 1 Each Blst.w.dev 1 Each IH DAILY Vitamin D3 (Cholecalciferol (Vitamin D3)) 25 Mcg Capsule 25 Mcg PO DAILY Colestipol HCl 1 Gram Tablet 2 Gm PO DAILY BEFORE BREAKFAST TAKES 2 (1GM) TABLET Vitamin C (Ascorbic Acid) 500 Mg Tablet 500 Mg PO TID Lutein 20 Mg Tablet 20 Mg PO DAILY Instructions to patient/family Please see electronic discharge instructions given to patient. Clinical Quality Measures Admission Status Admission Dx 1) Acute on chronic respiratory failure with hypoxia and hypercapnia Patient slept without any oxygen on last night and oxygen was in the 88% Home oxygen study is to be done before he is discharged Prednisone 40mg 1xD for a 3 day supply will be sent home with the patient Patient will follow up with senior energy consultant in a few weeks 2) Diabetes mellitus type II, insulin dependent Patient should continue to take home medications of Aspart and Detemir 3) CKD Stage 3A GFR of 58 Will follow up with his casket coverer in April 4) Elevated d-dimer Patient has a Wells score of 0 and unlikely to have a pulmonary embolism Age adjusted d-dimer also indicated that VTE is unlikely 5) Anemia Hg is stable at 9.3 Likely due to CKD Patient will be seeing a casket coverer in a month and should follow up with them 6) HTN 7) HLD 8) Immobile Enoxaparin 40mg 1xD Smoking Cessation Counseling: Counseling-Symptomatic: 3-10 Minutes Discussed Options Including: Nicotine Patch RYANNE DYSON MD 03/07/22 1510: Discharge Summary Discharge Physical Exam Allergies: Coded Allergies: meperidine (Verified Allergy, Mild, RASH, Pt has received Fentanyl w/o issue, 12/15/18) Supervisory-Addendum Brief Verification & Attestation Participated in pt care: history, MDM, physical Personally performed: exam, history, MDM, supervision of care Care discussed with: Medical Student Procedures: n/a Results interpretation: Verified all documentation Verification and Attestation of Medical Student E/M Service A medical student performed and documented this service in my presence. I reviewed and verified all information documented by the medical student and made modifications to such information, when appropriate. I personally performed the physical exam and medical decision making. Ryanne Dyson, Mar 07, 2022,15:09 JOAQUIM HIGHTOWER Mar 07, 2022 13:42 RYANNE DYSON MD Mar 07, 2022 15:10
--- NOTE | 2022-03-07 14:01 | Discharge Inst-Simple/Standard ---
Discharge Inst-Standard Patient Instructions/Follow Up Plan of Care/Instructions/FU: Please continue to take your medications as written. Please follow up with your primary care doctor to follow up this hospital stay. Activity as Tolerated: Yes Discharge Diet: No Restrictions Return to The Hospital For: Chest pain, shortness of breath, fever, weakness, if you feel you are getting worse. RYANNE DYSON MD Mar 07, 2022 2:01 pm
[2022-03-07 16:05] VITALS: BP 135/83
== END 2022-03-07 16:00 | disposition home or self-care (01) | DRG 189 ==
LOC: EDUNIT# 15:34 → ER 15:35 → CSD 17:15
PROVIDERS: ADMIT Family Medicine; ATTEND Family Medicine
PROC: 5A09357 Assistance with Respiratory Ventilation, Less than 24 Consecutive Hours, Continuous Positive Airway Pressure (ICD-10-PCS; principal; 2022-03-05)
DX: J96.21 Acute and chronic respiratory failure with hypoxia (principal); J44.1 Chronic obstructive pulmonary disease with (acute) exacerbation; J96.22 Acute and chronic respiratory failure with hypercapnia; E11.22 Type 2 diabetes mellitus with diabetic chronic kidney disease; N18.31 Chronic kidney disease, stage 3a; I12.9 Hypertensive chronic kidney disease with stage 1 through stage 4 chronic kidney disease, or unspecified chronic kidney disease; D63.1 Anemia in chronic kidney disease; E78.5 Hyperlipidemia, unspecified; M19.90 Unspecified osteoarthritis, unspecified site; Z79.4 Long term (current) use of insulin; Z79.899 Other long term (current) drug therapy; Z90.5 Acquired absence of kidney; G89.29 Other chronic pain; M54.9 Dorsalgia, unspecified; Z85.118 Personal history of other malignant neoplasm of bronchus and lung; Z85.528 Personal history of other malignant neoplasm of kidney; Z92.21 Personal history of antineoplastic chemotherapy; Z20.822 Contact with and (suspected) exposure to COVID-19
CPT/HCPCS: 36415; 71045; 71046; 80048; 80053; 81000; 82805; 82947; 83605; 83880; 84145; 84484; 85007; 85025; 85027; 85379; 85610; 85730; 86141; 87040; 87088; 87636; 93005; 94640; 94660; 94760; 94761; 96361; 96374; 96375

== ENCOUNTER → 2022-03-22 | Outpatient (CLI) | payer BC, MEDICARE ==
[~2022-03-22] MED LIST changes: +AMLO-251 PO; +PYRI50CA PO
== END ==
LOC: CARD 08:36
PROVIDERS: ATTEND Physician Assistant
DX: I11.9 Hypertensive heart disease without heart failure (principal); I07.1 Rheumatic tricuspid insufficiency
CPT/HCPCS: 93306

== ENCOUNTER 2022-06-12 11:36 | Emergency (ER) | payer BC ==
[~2022-06-12] VITALS: Ht 193 cm; Wt 78.9 kg
[~2022-06-12 11:36] MED LIST changes: +ALBU8.5H6 IH; -RT-ALBUINH IH
[2022-06-12] MEDS ORDERED: morphine INJ 10 MG/ML 1ML (SYR OR VIAL) IVP STA (12:53)
[2022-06-12 13:01] LABS: BASOPHILS % (AUTO) 0 % (0-10); EOSINOPHILS # (AUTO) 0.5 10^3/uL (0.0-0.3); EOSINOPHILS % (AUTO) 4 % (0-10); HEMATOCRIT 34 % (40-54); HEMOGLOBIN 10.8 g/dL (13.3-17.7); LYMPHOCYTES # (AUTO) 1.4 10^3/uL (1.0-4.0); LYMPHOCYTES % (AUTO) 12 % (12-44); MEAN CORPUSCULAR HEMOGLOBIN 28 pg (25-34); MEAN CORPUSCULAR HGB CONC 32 g/dL (32-36); MEAN CORPUSCULAR VOLUME 89 fL (80-99); MEAN PLATELET VOLUME 9.2 fL (9.0-12.2); MONOCYTES # (AUTO) 0.9 10^3/uL (0.0-1.0); MONOCYTES % (AUTO) 8 % (0-12); NEUTROPHILS # (AUTO) 8.4 10^3/uL (1.8-7.8); NEUTROPHILS % (AUTO) 75 % (42-75); PLATELET COUNT 271 10^3/uL (130-400); WHITE BLOOD COUNT 11.3 10^3/uL (4.3-11.0)
--- NOTE | 2022-06-12 13:10 | ED Abdominal Pain ---
General Chief Complaint: Abdominal/GI Problems Stated Complaint: RT ABD PAIN Nursing Triage Note: PT AMB TO TRIAGE WITH COMPLAINT OF RLQ PAIN. STATES STARTED YESTERDAY. Source of Information: Patient Exam Limitations: No Limitations (JOSE KHALIL APRN) History of Present Illness Date Seen by Provider: Jun 12, 2022 Time Seen by Provider: 12:15 Initial Comments History obtained from patient. Patient is a 66-year-old male who presents to the emergency department for evaluation of right lower quadrant abdominal pain that began yesterday. Patient denies any specific event that led to the pain. He does state the pain acutely worsens when he lifts anything heavy. He states the pain seems to be in his right lower quadrant/inguinal area. Denies any trauma to the affected area. Denies fever, nausea/vomiting, or diarrhea. Denies any urinary symptoms including dysuria or hematuria. He has not taken anything today for the symptoms. (JOSE KHALIL APRN) Allergies and Home Medications Allergies Coded Allergies: meperidine (Verified Allergy, Mild, RASH, Pt has received Fentanyl w/o issue, 12/15/18) Patient Home Medication List Home Medication List Reviewed: Yes (JOSE KHALIL APRN) Amlodipine Besylate (Amlodipine Besylate) 10 Mg Tablet, 10 MG PO HS, (Reported) Entered as Reported by: ILA PAINTING on 03/06/22 09 Ascorbic Acid (Vitamin C) 500 Mg Tablet, 500 MG PO TID, (Reported) Entered as Reported by: JADA KIMBALL on 09/21/15 1057 Cholecalciferol (Vitamin D3) (Vitamin D3) 25 Mcg Capsule, 25 MCG PO DAILY, (Reported) Entered as Reported by: ILA PAINTING on 07/10/21 1522 Colestipol HCl (Colestipol HCl) 1 Gram Tablet, 2 GM PO DAILY BEFORE BREAKFAST, (Reported) Entered as Reported by: JADA KIMBALL on 04/19/17 1519 Colestipol HCl (Colestipol HCl) 1 Gram Tablet, 2 GM PO 1800 AFTER DINNER, (Reported) Entered as Reported by: ILA PAINTING on 03/06/22 0905 Fluticasone/Vilanterol (Breo Ellipta 200-25 Mcg INH) 1 Each Blst.w.dev, 1 EACH IH DAILY, (Reported) Entered as Reported by: ILA PAINTING on 07/10/21 1533 Gabapentin (Neurontin) 300 Mg Capsule, 300 MG PO TID, (Reported) Entered as Reported by: ILA PAINTING on 03/06/22 0905 Insulin Aspart (Novolog Flexpen) 100 Unit/Ml (3 Ml) Solution, 8 UNITS SQ AC, (Reported) Entered as Reported by: ILA PAINTING on 11/08/21 1004 Insulin Detemir (Levemir Flextouch) 100 Unit/Ml (3 Ml) Insuln.pen, 23 UNIT SQ HS, (Reported) Entered as Reported by: ILA PAINTING on 11/08/21 1004 Ipratropium/Albuterol Sulfate (Iprat-Albut 0.5-3(2.5) mg/3 ml) 0.5 Mg-3 Mg (2.5 Mg Base)/3 Ml Ampul.neb, 3 ML IH TID, (Reported) Entered as Reported by: ILA PAINTING on 11/08/21 1004 Lisinopril (Lisinopril) 20 Mg Tablet, 20 MG PO DAILY, (Reported) Entered as Reported by: ILA PAINTING on 11/08/21 1109 Lutein (Lutein) 20 Mg Tablet, 20 MG PO DAILY, (Reported) Entered as Reported by: JADA KIMBALL on 09/21/15 1057 Prednisone (Prednisone) 20 Mg Tab, 40 MG PO DAILY@0700 Prescribed by: RYANNE DYSON on 03/07/22 1024 Pyridoxine HCl (Vitamin B-6) 50 Mg Capsule, 50 MG PO DAILY, (Reported) Entered as Reported by: ILA PAINTING on 03/06/22 0905 Tramadol HCl (Tramadol HCl) 50 Mg Tablet, 50 MG PO Q4H PRN for PAIN-MODERATE (5- 7) Prescribed by: Jose Khalil on 06/12/22 1438 Review of Systems Review of Systems Constitutional: no symptoms reported EENTM: No Symptoms Reported Respiratory: No Symptoms Reported Cardiovascular: No Symptoms Reported Gastrointestinal: See HPI, Abdominal Pain Genitourinary: No Symptoms Reported Musculoskeletal: no symptoms reported Skin: no symptoms reported Psychiatric/Neurological: No Symptoms Reported Endocrine: No Symptoms Reported Hematologic/Lymphatic: No Symptoms Reported (JOSE KHALIL APRN) Past Ijhvwrv-Apdatl-Fbbyrc Hx Patient Social History Tobacco Use?: Yes Tobacco type used: Cigarettes Smoking Status: Current Everyday Smoker Use of E-Cig and/or Vaping dev: No Substance use?: No Alcohol Use?: No Pt feels they are or have been: No (JOSE KHALIL APRN) Immunizations Up To Date Tetanus Booster (TDap): More than 5yrs First/Initial COVID19 Vaccinat: MAY 2021 Second COVID19 Vaccination Sal: JUNE 2021 Third COVID19 Vaccination Date: MAY 2021 (JOSE KHALIL APRN) Seasonal Allergies Seasonal Allergies: Yes (JOSE KHALIL APRN) Past Medical History Surgery/Hospitalization HX: pneumonia in june Surgeries: Yes (BILAT TKR, BMT, HERNIA X2;CATARACTS;THUMB SURGERY;L NEPHRECTOMY;LUNG BX) Abdominal, Ear Surgery, Eye Surgery, Gallbladder, Joint Replacement, Nephrectomy, Orthopedic Respiratory: Yes (LUNG BIOPSY/PNEUMOTHORAX; LUNG CANCER) Pneumonia, Chronic Bronchitis, COPD Currently Using CPAP: No Currently Using BIPAP: No Cardiac: Yes Hypertension, Rheumatic Fever Neurological: No Reproductive Disorders: No HIV/AIDS: No Genitourinary: Yes (RENAL CANCER--LEFT NEPHRECTOMY) Gastrointestinal: Yes Chronic Diarrhea, Polyps Musculoskeletal: Yes (FX L LEG,CLAVICLE,RIBS,FOOT; KNEE SX/SCREWS;OSTEOARTHRITIS KNEES/BILAT TKR) Degenerate Disk Disease, Arthritis, Chronic Back Pain, Fractures Endocrine: Yes (INSULIN + ORAL MEDICATIONS) Diabetes, Insulin dep HEENT: Yes (GLASSES, PARTIAL ) Cataract Loss of Vision: Denies Hearing Impairment: Hard of Hearing Cancer: Yes (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) Lung, Kidney Did You Recieve Any Treatments: Yes What Type of Treatment Did You: Chemotherapy, Surgical Intervention Psychosocial: No Integumentary: No Blood Disorders: No Adverse Reaction/Blood Tranf: No (N/A) (JOSE KHALIL APRN) Family Medical History Diabetes mellitus 19 FATHER 19 MOTHER G8 BROTHER FH: skin cancer 19 MOTHER Family history: Arthritis Family history: Coronary thrombosis Family history: Diabetes mellitus History of - respiratory disease No Family History of: Abdominal aortic aneurysm Atkinson's disease Alcoholism Aphasia Cancer Cancer of colon Cataract Chest pain Congenital heart disease Congestive heart failure Cystic fibrosis Dementia Dysphagia Family history: Allergy Family history: Alzheimer's disease Family history: Asthma Family history: Breast disease Family history: Cardiovascular disease Family history: Gastrointestinal disease Family history: Glaucoma Family history: Hypertension Family history: Osteoporosis Family history: Thyroid disorder Headache Hearing loss Heart disease Hereditary disease History of - anemia History of - disorder History of drug abuse Human immunodeficiency virus (HIV) seropositivity Hypercholesterolemia Infertile Kidney disease Malignant neoplasm of lung Myocardial infarction Parkinson's disease Prostate cancer Psychotic disorder Seizure disorder Stroke Tuberculosis Visual impairment Heart Disease, Diabetes SOCIAL HISTORY: -ETOH--DENIES USE -SMOKES 1 PPD -DRUGS--DENIES USE PSH: -HERNIA REPAIR X 2 -BILATERAL MYRINGOTOMY TUBES -CARPAL TUNNEL SURGERY -BILATERAL CATARACT SURGERY -SCREWS IN KNEE AND LATER REMOVED -BILATERAL KNEE REPLACEMENTS 2013 -LEFT NEPHRECTOMY FOR CANCER 2013 -LUNG BIOPSY WITH PNEUMOTHORAX (JOSE KHALIL APRN) Physical Exam Vital Signs Vital Signs - First Documented 06/12/22 06/12/22 11:43 13:10 Temp 36.8 Pulse 94 Resp 16 B/P (MAP) 122/66 (84) Pulse Ox 92 O2 Delivery Room Air O2 Flow Rate 2.00 (DAVID,KENDELL K DO) Vital Signs Capillary Refill : Less Than 3 Seconds (JOSE KHALIL APRN) Height/Weight/BMI Height: 6'4.00" Weight: 203lbs. 5.0oz. [id number]; 21.00 BMI Method:Stated General Appearance: WD/WN, no apparent distress HEENT: PERRL/EOMI, normal ENT inspection, TMs normal, pharynx normal Neck: non-tender, full range of motion, supple, normal inspection Respiratory: chest non-tender, lungs clear, normal breath sounds, no respiratory distress, no accessory muscle use Cardiovascular: regular rate, rhythm Gastrointestinal: normal bowel sounds, soft, no organomegaly, no pulsatile mass, tenderness Back: normal inspection, no vertebral tenderness Neurologic/Psychiatric: fundraising assistant II-XII nml as tested, no motor/sensory deficits, alert, normal mood/affect, oriented x 3 Skin: normal color, warm/dry (JOSE KHALIL APRN) Procedures/Interventions Date of ETT Placement: Jul 07, 2021 Time of ETT Placement: 2236 (JOSE KHALIL APRN) Progress/Results/Core Measures Results/Orders Lab Results Laboratory Tests Test 06/12/22 12:50 06/12/22 14:10 Range/Units White Blood Count 11.3 H 4.3-11.0 10^3/uL Red Blood Count 3.84 L 4.30-5.52 10^6/uL Hemoglobin 10.8 L 13.3-17.7 g/dL Hematocrit 34 L 40-54 % Mean Corpuscular Volume 89 80-99 fL Mean Corpuscular Hemoglobin 28 25-34 pg Mean Corpuscular Hemoglobin Concent 32 32-36 g/dL Red Cell Distribution Width 14.3 10.0-14.5 % Platelet Count 271 130-400 10^3/uL Mean Platelet Volume 9.2 9.0-12.2 fL Immature Granulocyte % (Auto) 0 % Neutrophils (%) (Auto) 75 42-75 % Lymphocytes (%) (Auto) 12 12-44 % Monocytes (%) (Auto) 8 0-12 % Eosinophils (%) (Auto) 4 0-10 % Basophils (%) (Auto) 0 0-10 % Neutrophils # (Auto) 8.4 H 1.8-7.8 10^3/uL Lymphocytes # (Auto) 1.4 1.0-4.0 10^3/uL Monocytes # (Auto) 0.9 0.0-1.0 10^3/uL Eosinophils # (Auto) 0.5 H 0.0-0.3 10^3/uL Basophils # (Auto) 0.0 0.0-0.1 10^3/uL Immature Granulocyte # (Auto) 0.0 0.0-0.1 10^3/uL Sodium Level 139 135-145 MMOL/L Potassium Level 4.9 3.6-5.0 MMOL/L Chloride Level 103 98-107 MMOL/L Carbon Dioxide Level 30 21-32 MMOL/L Anion Gap 6 5-14 MMOL/L Blood Urea Nitrogen 21 H 7-18 MG/DL Creatinine 1.52 H 0.60-1.30 MG/DL Estimat Glomerular Filtration Rate 50 BUN/Creatinine Ratio 14 Glucose Level 141 H 70-105 MG/DL Calcium Level 9.6 8.5-10.1 MG/DL Corrected Calcium 9.6 8.5-10.1 MG/DL Total Bilirubin 0.4 0.1-1.0 MG/DL Aspartate Amino Transf (AST/SGOT) 14 5-34 U/L Alanine Aminotransferase (ALT/SGPT) 16 0-55 U/L Alkaline Phosphatase 52 40-136 U/L Total Protein 7.0 6.4-8.2 GM/DL Albumin 4.0 3.2-4.5 GM/DL Urine Color YELLOW Urine Clarity CLEAR Urine pH 5.5 5-9 Urine Specific Smilax 1.020 1.016-1.022 Urine Protein NEGATIVE NEGATIVE Urine Glucose (UA) NEGATIVE NEGATIVE Urine Ketones NEGATIVE NEGATIVE Urine Nitrite NEGATIVE NEGATIVE Urine Bilirubin NEGATIVE NEGATIVE Urine Urobilinogen 0.2 < = 1.0 MG/DL Urine Leukocyte Esterase NEGATIVE NEGATIVE Urine RBC (Auto) NEGATIVE NEGATIVE Urine RBC NONE /HPF Urine WBC RARE /HPF Urine Squamous Epithelial Cells RARE /HPF Urine Crystals NONE /LPF Urine Bacteria NEGATIVE /HPF Urine Casts NONE /LPF Urine Mucus NEGATIVE /LPF Urine Culture Indicated NO (KENDELL HERNANDEZ DO) Vital Signs/I&O 06/12/22 06/12/22 06/12/22 11:43 13:10 14:48 Temp 36.8 Pulse 94 73 Resp 16 16 B/P (MAP) 122/66 (84) 116/57 Pulse Ox 92 98 94 O2 Delivery Room Air Nasal Cannula Room Air O2 Flow Rate 2.00 0 0 (DESI HERNANDEZA K DO) Blood Pressure Mean: 84 Progress Progress Note : Progress Note Patient has a history of renal disease. Review of EMR shows elevated BUN and creatinine over several visits over the last 6 months to 1 year. Highest creatinine over that time appears to be over 8. Patient also endorses a history of umbilical and left inguinal hernia that have required surgical repair in the past. Patient is nontoxic and well-hydrated on exam. Vital signs are reassuring. Abdominal exam notable for some right lower quadrant and right inguinal tenderness to palpation. There may be a very slight bulging appreciated in the right inguinal area that does slightly worsen with Valsalva. No flank pain appreciated. Orders were placed for CBC, CMP, urinalysis, IV placement, and CT of the abdomen/pelvis with contrast. Differential diagnosis includes acute appendicitis, inguinal/femoral hernia, strangulated hernia, ureteral calculi. CBC notable for mild leukocytosis as well as mild anemia. CMP notable for elevated BUN and creatinine that appear within patient's baseline per review of the EMR. CT of the abdomen pelvis with contrast is acutely negative. Specifically there is no evidence of appendicitis. Patient was given an IV dose of morphine for the pain with some subsequent relief. The slight bulging in the groin is consistent with inguinal versus femoral hernia. The fact that it worsened when the patient picked up something heavy at work earlier today makes hernia a likely etiology. There is no evidence of any incarceration or strangulation of the hernia at this time. Discussed activity modification to avoid lifting heavy items or anything else that would induce prolonged Valsalva and thus may worsen the pain. Discussed importance of close follow-up with PCP for general surgery for further evaluation. Return precautions for urgent symptomology discussed. Patient verbalized understanding. Patient will be discharged home with a very short course of analgesia for the pain. (JOSE KHALIL APRN) Departure Impression Primary Impression: Right groin pain Disposition: HOME, SELF-CARE Condition: Stable Departure-Patient Inst. Decision time for Depature: 14:30 (JOSE KHALIL APRN) Referrals: SB JOLLY JOHN D MD (PCP/Family) Primary Care Physician Patient Instructions: Groin Hernia (DC) Scripts Tramadol HCl (Tramadol HCl) 50 Mg Tablet 50 MG PO Q4H PRN for PAIN-MODERATE (5-7) for 3 Days, #18 TAB 0 Refills Prov: JOSE KHALIL APRN 06/12/22 ATTENDING PHYSICIAN NOTE: I WAS PHYSICALLY PRESENT ER PHYSICIAN, BUT I WAS NOT INVOLVED IN ANY DECISION MAKING OR ANY CARE OF THIS PATIENT, AND I AM NOT COLLABORATING PHYSICIAN. (KENDELL HERNANDEZ DO) JOSE KHALIL APRN Jun 12, 2022 13:10 KENDELL HERNANDEZ DO Jun 14, 2022 00:50
[2022-06-12 13:21] LABS: BILIRUBIN,TOTAL 0.4 MG/DL (0.1-1.0); CALCIUM 9.6 MG/DL (8.5-10.1); CREATININE SERUM 1.52 MG/DL (0.60-1.30); POTASSIUM 4.9 MMOL/L (3.6-5.0)
[2022-06-12] MEDS ORDERED: IOHEXOL 350 MG/ML 100 ML (OMNIPAQUE 350) VIAL IV ONE (13:30)
[2022-06-12] MEDS ORDERED: NS 100 ML (IVPB) BAG IV ONE (13:30)
[2022-06-12] MEDS ORDERED: HOLD METFORMIN - RECEIVED CONTRAST 20 ML VIAL IV SCH (13:30)
--- NOTE | 2022-06-12 13:57 | Diagnostic Imaging Report ---
EXAMINATION: CT abdomen and pelvis with intravenous contrast. TECHNIQUE: Multiple contiguous axial images were obtained through the abdomen and pelvis after the uneventful administration of intravenous contrast. All CT scans use one or more of the following dose optimizing techniques: automated exposure control, MA and/or KvP adjustment based on patient size and exam type or iterative reconstruction. HISTORY: Right lower quadrant pain. COMPARISON: 03/28/2021. FINDINGS: Limited views of the lower thorax show emphysema. The liver is normal without focal lesion. There is no biliary ductal dilation. Gallbladder is absent. Pancreas is normal. Spleen is normal. Adrenal glands are normal. Left kidney is surgically absent. No suspicious right renal lesions. There is no hydronephrosis. Urinary bladder is normal. Bowel is normal in caliber without obstruction or inflammation. There is a small hiatal hernia. The appendix is normal. No free fluid or air. No abdominal or pelvic lymphadenopathy. Aorta is atherosclerotic without aneurysm. There are no suspicious osseous lesions. IMPRESSION: 1. Normal appendix. No acute abnormality in the abdomen or pelvis. Dictated by: Dictated on workstation # [id number]
[2022-06-12 14:17] LABS: BILIRUBIN,URINE NEGATIVE (NEGATIVE); CLARITY,URINE CLEAR; COLOR,URINE YELLOW; GLUCOSE, URINE (UA) NEGATIVE (NEGATIVE); KETONES,URINE NEGATIVE (NEGATIVE); LEUKOCYTE ESTERASE ,URINE NEGATIVE (NEGATIVE); NITRITE,URINE NEGATIVE (NEGATIVE); PH,URINE 5.5 (5-9); PROTEIN,URINE NEGATIVE (NEGATIVE)
[2022-06-12 14:24] LABS: BACTERIA,URINE NEGATIVE /HPF; SQUAMOUS EPITHELIAL CELL,UR RARE /HPF; WBC,URINE RARE /HPF
[2022-06-12] MEDS ORDERED: TRM50T PO (14:37)
[2022-06-12 14:48] VITALS: BP 116/57
== END 2022-06-12 14:48 | disposition home or self-care (01) ==
LOC: EDUNIT# 11:36 → ER 11:38
DX: R10.31 Right lower quadrant pain (principal); D72.829 Elevated white blood cell count, unspecified; D64.9 Anemia, unspecified; R79.89 Other specified abnormal findings of blood chemistry; F17.210 Nicotine dependence, cigarettes, uncomplicated; E11.9 Type 2 diabetes mellitus without complications; Z79.4 Long term (current) use of insulin; Z87.19 Personal history of other diseases of the digestive system; Z98.890 Other specified postprocedural states; Z79.84 Long term (current) use of oral hypoglycemic drugs; Z85.528 Personal history of other malignant neoplasm of kidney; Z85.118 Personal history of other malignant neoplasm of bronchus and lung; Z92.21 Personal history of antineoplastic chemotherapy; Z88.5 Allergy status to narcotic agent
CPT/HCPCS: 36415; 74177; 80053; 81000; 85025

== ENCOUNTER 2022-06-21 15:26 | Outpatient (RCR) | payer BC ==
[~2022-06-21] VITALS: Ht 188 cm; Wt 80.3 kg
[~2022-06-21 15:26] MED LIST changes: +HEParin (CENTRAL IV FLUSH) 500 UNIT/5 ML SYR IV PRN; +NIVOLUMAB 480 MG in NS (IVPB) 100 ML IV SCH; +NIVOLUMAB IV SCH; +NS (IVPB) 250 ML IV SCH; +NS IV 500 ML (CANCER CENTER) IV SCH; +NS IV SCH
[2022-06-21 16:11] LABS: BASOPHILS % (AUTO) 0 % (0-10); EOSINOPHILS # (AUTO) 0.3 10^3/uL (0.0-0.3); EOSINOPHILS % (AUTO) 3 % (0-10); HEMATOCRIT 34 % (40-54); HEMOGLOBIN 10.8 g/dL (13.3-17.7); LYMPHOCYTES # (AUTO) 1.4 10^3/uL (1.0-4.0); LYMPHOCYTES % (AUTO) 16 % (12-44); MEAN CORPUSCULAR HEMOGLOBIN 28 pg (25-34); MEAN CORPUSCULAR HGB CONC 32 g/dL (32-36); MEAN CORPUSCULAR VOLUME 89 fL (80-99); MEAN PLATELET VOLUME 9.7 fL (9.0-12.2); MONOCYTES # (AUTO) 0.8 10^3/uL (0.0-1.0); MONOCYTES % (AUTO) 9 % (0-12); NEUTROPHILS # (AUTO) 5.9 10^3/uL (1.8-7.8); NEUTROPHILS % (AUTO) 71 % (42-75); PLATELET COUNT 273 10^3/uL (130-400); WHITE BLOOD COUNT 8.3 10^3/uL (4.3-11.0)
[2022-06-21 16:34] LABS: ALBUMIN 3.7 GM/DL (3.2-4.5); BILIRUBIN,TOTAL 0.3 MG/DL (0.1-1.0); CALCIUM 8.8 MG/DL (8.5-10.1); CREATININE SERUM 1.7 MG/DL (0.60-1.30); POTASSIUM 4.6 MMOL/L (3.6-5.0); TOTAL PROTEIN 6.6 GM/DL (6.4-8.2)
== END 2022-07-03 | disposition home or self-care (01) ==
LOC: ONC 15:26
PROVIDERS: ATTEND Internal Medicine Hematology & Oncology
DX: C64.2 Malignant neoplasm of left kidney, except renal pelvis (principal); C78.01 Secondary malignant neoplasm of right lung; E11.22 Type 2 diabetes mellitus with diabetic chronic kidney disease; I12.9 Hypertensive chronic kidney disease with stage 1 through stage 4 chronic kidney disease, or unspecified chronic kidney disease; N18.30 Chronic kidney disease, stage 3 unspecified; D63.1 Anemia in chronic kidney disease; Z90.5 Acquired absence of kidney
CPT/HCPCS: 36415; 80053; 85025; 96413; 99213

== ENCOUNTER 2022-07-19 15:01 | Outpatient (RCR) | payer BC ==
[~2022-07-19 15:01] MED LIST changes: -NIVOLUMAB IV SCH; -NS IV SCH
[2022-07-19 15:32] LABS: BASOPHILS % (AUTO) 0 % (0-10); EOSINOPHILS # (AUTO) 0.6 10^3/uL (0.0-0.3); EOSINOPHILS % (AUTO) 7 % (0-10); HEMATOCRIT 35 % (40-54); HEMOGLOBIN 11.3 g/dL (13.3-17.7); LYMPHOCYTES # (AUTO) 1.4 X 10^3 (1.0-4.0); LYMPHOCYTES % (AUTO) 18 % (12-44); MEAN CORPUSCULAR HEMOGLOBIN 29 pg (25-34); MEAN CORPUSCULAR HGB CONC 32 g/dL (32-36); MEAN CORPUSCULAR VOLUME 90 fL (80-99); MEAN PLATELET VOLUME 9.7 fL (9.0-12.2); MONOCYTES # (AUTO) 0.7 X 10^3 (0.0-1.0); MONOCYTES % (AUTO) 9 % (0-12); NEUTROPHILS # (AUTO) 5.2 X 10^3 (1.8-7.8); NEUTROPHILS % (AUTO) 66 % (42-75); PLATELET COUNT 252 10^3/uL (130-400)
[2022-07-19 15:49] LABS: ALBUMIN 4.1 GM/DL (3.2-4.5); BILIRUBIN,TOTAL 0.9 MG/DL (0.1-1.0); CALCIUM 9.4 MG/DL (8.5-10.1); CREATININE SERUM 1.32 MG/DL (0.60-1.30); POTASSIUM 4.5 MMOL/L (3.6-5.0); TOTAL PROTEIN 6.9 GM/DL (6.4-8.2)
== END 2022-07-31 | disposition home or self-care (01) ==
LOC: ONC 15:01
PROVIDERS: ATTEND Internal Medicine Hematology & Oncology
DX: Z51.11 Encounter for antineoplastic chemotherapy (principal); C64.2 Malignant neoplasm of left kidney, except renal pelvis; C78.01 Secondary malignant neoplasm of right lung; E11.22 Type 2 diabetes mellitus with diabetic chronic kidney disease; I12.9 Hypertensive chronic kidney disease with stage 1 through stage 4 chronic kidney disease, or unspecified chronic kidney disease; N18.30 Chronic kidney disease, stage 3 unspecified; D63.1 Anemia in chronic kidney disease; Z90.5 Acquired absence of kidney; J44.9 Chronic obstructive pulmonary disease, unspecified
CPT/HCPCS: 36415; 80053; 85025; 96413

== ENCOUNTER → 2022-07-23 | Outpatient (CLI) | payer BC ==
[~2022-07-23] MED LIST changes: -HEParin (CENTRAL IV FLUSH) 500 UNIT/5 ML SYR IV PRN; +HOLD METFORMIN - RECEIVED CONTRAST 20 ML VIAL IV SCH; +IOHEXOL 350 MG/ML 100 ML (OMNIPAQUE 350) VIAL IV ONE; -NIVOLUMAB 480 MG in NS (IVPB) 100 ML IV SCH; -NS (IVPB) 250 ML IV SCH; +NS 100 ML (IVPB) BAG IV ONE; -NS IV 500 ML (CANCER CENTER) IV SCH
--- NOTE | 2022-07-23 16:56 | Diagnostic Imaging Report ---
EXAMINATION: CT chest, abdomen and pelvis with intravenous contrast. TECHNIQUE: Multiple contiguous axial images were obtained through the chest, abdomen and pelvis after the uneventful administration of intravenous contrast. All CT scans use one or more of the following dose optimizing techniques: automated exposure control, MA and/or KvP adjustment based on patient size and exam type or iterative reconstruction. HISTORY: MALIGNANT NEOPLASM OF LEFT KIDNEY EXCEPT RENAL PELVIS. COMPARISON: 06/12/2022 FINDINGS: Thyroid: The visualized thyroid gland is normal. Mediastinum: Heart size is normal without significant pericardial effusion. Calcifications of the aorta and coronary vessels. Thoracic aorta is normal in caliber. There are mildly enlarged mediastinal lymph nodes measuring up to 1.3 x 1.8 cm. Lungs and airways: There are background emphysematous changes of the lungs without consolidation, pleural effusion, or pneumothorax. No suspicious pulmonary nodule. Scattered areas of atelectasis or scarring. Calcifications seen along the right pleura. The airways are normal. Solid organs: The liver is normal without focal lesion. The gallbladder is surgically absent. Mild dilatation of the common bile duct. Suggestion of small stones within the distal common bile duct. Pancreas is normal. Spleen is normal. The left adrenal gland is nonvisualized and may be surgically absent. The right adrenal gland is unremarkable. The right kidney is unremarkable without hydronephrosis. The left kidney is surgically absent. Bowel: The stomach and small bowel are normal without obstruction. There is a large hiatal hernia. No bowel obstruction. Peritoneum: There is scattered colonic diverticulosis. No findings of acute appendicitis. No suspicious lymphadenopathy. Vasculature: Calcification of the aorta without aneurysm. Musculoskeletal: Degenerative changes of the spine without suspicious osseous lesion or compression fracture. Pelvis: The prostate gland is normal. The urinary bladder is normal. IMPRESSION: 1. A mildly enlarged mediastinal lymph node is nonspecific. Recommend attention on followup imaging. 2. No other findings of metastatic disease within the chest, abdomen, or pelvis. 3. Biliary ductal dilatation with suggestion of stones within the distal common bile duct. This could be further evaluated with MRCP. Dictated by: Dictated on workstation # [id number]
== END ==
LOC: RAD 15:15
PROVIDERS: ATTEND Internal Medicine Hematology & Oncology
DX: C64.2 Malignant neoplasm of left kidney, except renal pelvis (principal); K83.9 Disease of biliary tract, unspecified
CPT/HCPCS: 71260; 74177

== ENCOUNTER 2022-08-16 15:10 | Outpatient (RCR) | payer BC ==
[~2022-08-16 15:10] MED LIST changes: +HEParin (CENTRAL IV FLUSH) 500 UNIT/5 ML SYR IV PRN; -HOLD METFORMIN - RECEIVED CONTRAST 20 ML VIAL IV SCH; -INSU100I29 SC; -INSU100I29 SQ; +INSU100I30 SC; +INSU100I30 SQ; -IOHEXOL 350 MG/ML 100 ML (OMNIPAQUE 350) VIAL IV ONE; +NIVOLUMAB 480 MG in NS (IVPB) 100 ML IV SCH; +NS (IVPB) 250 ML IV SCH; -NS 100 ML (IVPB) BAG IV ONE; +NS IV 500 ML (CANCER CENTER) IV SCH
[2022-08-16 15:35] LABS: MEAN CORPUSCULAR VOLUME 91 fL (80-99)
[2022-08-16 15:37] LABS: BASOPHILS % (AUTO) 0 % (0-10); EOSINOPHILS # (AUTO) 0.4 10^3/uL (0.0-0.3); EOSINOPHILS % (AUTO) 3 % (0-10); HEMATOCRIT 34 % (40-54); HEMOGLOBIN 10.7 g/dL (13.3-17.7); LYMPHOCYTES # (AUTO) 1.9 10^3/uL (1.0-4.0); LYMPHOCYTES % (AUTO) 13 % (12-44); MEAN CORPUSCULAR HEMOGLOBIN 29 pg (25-34); MEAN CORPUSCULAR HGB CONC 32 g/dL (32-36); MEAN PLATELET VOLUME 10.4 fL (9.0-12.2); MONOCYTES # (AUTO) 1.1 10^3/uL (0.0-1.0); MONOCYTES % (AUTO) 8 % (0-12); NEUTROPHILS # (AUTO) 10.6 10^3/uL (1.8-7.8); NEUTROPHILS % (AUTO) 75 % (42-75); PLATELET COUNT 288 10^3/uL (130-400); WHITE BLOOD COUNT 14.1 10^3/uL (4.3-11.0)
[2022-08-16 15:49] LABS: ALBUMIN 3.6 GM/DL (3.2-4.5); POTASSIUM 5.6 MMOL/L (3.6-5.0)
[2022-08-16 15:50] LABS: CALCIUM 9.7 MG/DL (8.5-10.1)
[2022-08-16 15:51] LABS: TOTAL PROTEIN 7.5 GM/DL (6.4-8.2)
[2022-08-16 15:53] LABS: BILIRUBIN,TOTAL 0.6 MG/DL (0.1-1.0)
[2022-08-16 15:55] LABS: CREATININE SERUM 1.58 MG/DL (0.60-1.30)
== END 2022-08-31 | disposition home or self-care (01) ==
LOC: ONC 15:10
PROVIDERS: ATTEND Internal Medicine Hematology & Oncology
DX: Z51.11 Encounter for antineoplastic chemotherapy (principal); C64.2 Malignant neoplasm of left kidney, except renal pelvis; C78.01 Secondary malignant neoplasm of right lung; E11.22 Type 2 diabetes mellitus with diabetic chronic kidney disease; I12.9 Hypertensive chronic kidney disease with stage 1 through stage 4 chronic kidney disease, or unspecified chronic kidney disease; N18.30 Chronic kidney disease, stage 3 unspecified; D63.1 Anemia in chronic kidney disease; Z90.5 Acquired absence of kidney; J44.9 Chronic obstructive pulmonary disease, unspecified
CPT/HCPCS: 36415; 80053; 85025; 96413

== ENCOUNTER 2022-09-13 15:12 | Outpatient (RCR) | payer BC ==
[2022-09-13 15:37] LABS: BASOPHILS % (AUTO) 0 % (0-10); EOSINOPHILS # (AUTO) 0.4 10^3/uL (0.0-0.3); EOSINOPHILS % (AUTO) 5 % (0-10); HEMATOCRIT 33 % (40-54); HEMOGLOBIN 10.7 g/dL (13.3-17.7); LYMPHOCYTES # (AUTO) 1.6 10^3/uL (1.0-4.0); LYMPHOCYTES % (AUTO) 20 % (12-44); MEAN CORPUSCULAR HEMOGLOBIN 30 pg (25-34); MEAN CORPUSCULAR HGB CONC 33 g/dL (32-36); MEAN CORPUSCULAR VOLUME 91 fL (80-99); MEAN PLATELET VOLUME 11.4 fL (9.0-12.2); MONOCYTES # (AUTO) 0.8 10^3/uL (0.0-1.0); MONOCYTES % (AUTO) 10 % (0-12); NEUTROPHILS # (AUTO) 5.4 10^3/uL (1.8-7.8); NEUTROPHILS % (AUTO) 65 % (42-75); PLATELET COUNT 308 10^3/uL (130-400); WHITE BLOOD COUNT 8.2 10^3/uL (4.3-11.0)
[2022-09-13 16:38] LABS: ALBUMIN 3.9 GM/DL (3.2-4.5); BILIRUBIN,TOTAL 0.6 MG/DL (0.1-1.0); CALCIUM 8.8 MG/DL (8.5-10.1); CREATININE SERUM 1.39 MG/DL (0.60-1.30); POTASSIUM 4.6 MMOL/L (3.6-5.0); TOTAL PROTEIN 6.6 GM/DL (6.4-8.2)
== END 2022-09-30 | disposition home or self-care (01) ==
LOC: ONC 15:12
PROVIDERS: ATTEND Internal Medicine Hematology & Oncology
DX: Z51.11 Encounter for antineoplastic chemotherapy (principal); C64.2 Malignant neoplasm of left kidney, except renal pelvis; C78.01 Secondary malignant neoplasm of right lung; E11.22 Type 2 diabetes mellitus with diabetic chronic kidney disease; I12.9 Hypertensive chronic kidney disease with stage 1 through stage 4 chronic kidney disease, or unspecified chronic kidney disease; N18.30 Chronic kidney disease, stage 3 unspecified; D63.1 Anemia in chronic kidney disease; Z90.5 Acquired absence of kidney; J44.9 Chronic obstructive pulmonary disease, unspecified
CPT/HCPCS: 36415; 80053; 85025; 96413

== ENCOUNTER 2022-10-15 15:33 | Outpatient (RCR) | payer BC ==
[2022-10-15 15:59] LABS: BASOPHILS % (AUTO) 0 % (0-10); EOSINOPHILS # (AUTO) 0.6 10^3/uL (0.0-0.3); EOSINOPHILS % (AUTO) 7 % (0-10); HEMATOCRIT 35 % (40-54); HEMOGLOBIN 10.9 g/dL (13.3-17.7); LYMPHOCYTES % (AUTO) 22 % (12-44); MEAN CORPUSCULAR HEMOGLOBIN 30 pg (25-34); MEAN CORPUSCULAR HGB CONC 32 g/dL (32-36); MEAN CORPUSCULAR VOLUME 95 fL (80-99); MEAN PLATELET VOLUME 9.5 fL (9.0-12.2); MONOCYTES # (AUTO) 0.8 X 10^3 (0.0-1.0); MONOCYTES % (AUTO) 9 % (0-12); NEUTROPHILS # (AUTO) 5.5 X 10^3 (1.8-7.8); NEUTROPHILS % (AUTO) 62 % (42-75); PLATELET COUNT 219 10^3/uL (130-400)
[2022-10-15 16:15] LABS: ALBUMIN 4.1 GM/DL (3.2-4.5); BILIRUBIN,TOTAL 0.8 MG/DL (0.1-1.0); CALCIUM 9.3 MG/DL (8.5-10.1); CREATININE SERUM 1.54 MG/DL (0.60-1.30); POTASSIUM 4.1 MMOL/L (3.6-5.0); TOTAL PROTEIN 6.6 GM/DL (6.4-8.2)
== END 2022-10-31 | disposition home or self-care (01) ==
LOC: ONC 15:33
PROVIDERS: ATTEND Internal Medicine Hematology & Oncology
DX: Z51.11 Encounter for antineoplastic chemotherapy (principal); C64.2 Malignant neoplasm of left kidney, except renal pelvis; C78.01 Secondary malignant neoplasm of right lung; E11.22 Type 2 diabetes mellitus with diabetic chronic kidney disease; I12.9 Hypertensive chronic kidney disease with stage 1 through stage 4 chronic kidney disease, or unspecified chronic kidney disease; N18.30 Chronic kidney disease, stage 3 unspecified; D63.1 Anemia in chronic kidney disease; J44.9 Chronic obstructive pulmonary disease, unspecified; Z90.5 Acquired absence of kidney
CPT/HCPCS: 36415; 80053; 85025; 96413

== ENCOUNTER 2022-11-12 09:19 | Outpatient (RCR) | payer BC ==
[~2022-11-12 09:19] MED LIST changes: -IPRA3AMP31 IH; +IPRA3AMP31 NEB
[2022-11-12 16:02] LABS: BASOPHILS % (AUTO) 0 % (0-10); EOSINOPHILS # (AUTO) 0.7 10^3/uL (0.0-0.3); EOSINOPHILS % (AUTO) 8 % (0-10); HEMATOCRIT 35 % (40-54); LYMPHOCYTES # (AUTO) 1.5 X 10^3 (1.0-4.0); LYMPHOCYTES % (AUTO) 17 % (12-44); MEAN CORPUSCULAR HEMOGLOBIN 30 pg (25-34); MEAN CORPUSCULAR HGB CONC 32 g/dL (32-36); MEAN CORPUSCULAR VOLUME 94 fL (80-99); MEAN PLATELET VOLUME 9.9 fL (9.0-12.2); MONOCYTES # (AUTO) 0.8 X 10^3 (0.0-1.0); MONOCYTES % (AUTO) 9 % (0-12); NEUTROPHILS # (AUTO) 5.8 X 10^3 (1.8-7.8); NEUTROPHILS % (AUTO) 66 % (42-75); PLATELET COUNT 218 10^3/uL (130-400); WHITE BLOOD COUNT 8.9 10^3/uL (4.3-11.0)
[2022-11-12 16:27] LABS: ALBUMIN 4.1 GM/DL (3.2-4.5); BILIRUBIN,TOTAL 0.4 MG/DL (0.1-1.0); CALCIUM 9.1 MG/DL (8.5-10.1); CREATININE SERUM 1.42 MG/DL (0.60-1.30); POTASSIUM 4.6 MMOL/L (3.6-5.0); TOTAL PROTEIN 6.5 GM/DL (6.4-8.2)
== END 2022-11-30 | disposition home or self-care (01) ==
LOC: ONC 09:19
PROVIDERS: ATTEND Internal Medicine Hematology & Oncology
DX: Z51.11 Encounter for antineoplastic chemotherapy (principal); C64.2 Malignant neoplasm of left kidney, except renal pelvis; C78.01 Secondary malignant neoplasm of right lung; E11.22 Type 2 diabetes mellitus with diabetic chronic kidney disease; I12.9 Hypertensive chronic kidney disease with stage 1 through stage 4 chronic kidney disease, or unspecified chronic kidney disease; N18.30 Chronic kidney disease, stage 3 unspecified; D63.1 Anemia in chronic kidney disease; J44.9 Chronic obstructive pulmonary disease, unspecified; Z90.5 Acquired absence of kidney
CPT/HCPCS: 36415; 80053; 85025; 96413

== ENCOUNTER 2022-12-10 07:43 | Outpatient (RCR) | payer BC ==
[~2022-12-10] VITALS: Ht 187.7 cm; Wt 75.8 kg
[~2022-12-10 07:43] MED LIST changes: -HEParin (CENTRAL IV FLUSH) 500 UNIT/5 ML SYR IV PRN; -NIVOLUMAB 480 MG in NS (IVPB) 100 ML IV SCH; -NS (IVPB) 250 ML IV SCH; -NS IV 500 ML (CANCER CENTER) IV SCH
[2022-12-10] MEDS ORDERED: NS (IVPB) 250 ML 250 ML IV SCH (08:39)
[2022-12-10] MEDS ORDERED: HEParin (CENTRAL IV FLUSH) 500 UNIT/5 ML SYR IV PRN (08:39)
[2022-12-10] MEDS ORDERED: NIVOLUMAB 480 MG in NS (IVPB) 100 ML 100 ML IV SCH (08:39)
[2022-12-10] MEDS ORDERED: NS IV 500 ML (CANCER CENTER) IV SCH (08:39)
[2022-12-10 15:35] VITALS: BP 107/54
[2022-12-10 15:47] LABS: BASOPHILS % (AUTO) 0 % (0-10); EOSINOPHILS # (AUTO) 0.3 10^3/uL (0.0-0.3); EOSINOPHILS % (AUTO) 3 % (0-10); HEMATOCRIT 36 % (40-54); HEMOGLOBIN 11.4 g/dL (13.3-17.7); LYMPHOCYTES # (AUTO) 1.3 10^3/uL (1.0-4.0); LYMPHOCYTES % (AUTO) 11 % (12-44); MEAN CORPUSCULAR HEMOGLOBIN 30 pg (25-34); MEAN CORPUSCULAR HGB CONC 32 g/dL (32-36); MEAN CORPUSCULAR VOLUME 93 fL (80-99); MONOCYTES # (AUTO) 1.1 10^3/uL (0.0-1.0); MONOCYTES % (AUTO) 10 % (0-12); NEUTROPHILS # (AUTO) 8.8 10^3/uL (1.8-7.8); NEUTROPHILS % (AUTO) 76 % (42-75); PLATELET COUNT 232 10^3/uL (130-400); WHITE BLOOD COUNT 11.6 10^3/uL (4.3-11.0)
[2022-12-10 16:06] LABS: ALBUMIN 4.1 GM/DL (3.2-4.5); BILIRUBIN,TOTAL 0.5 MG/DL (0.1-1.0); CALCIUM 9.1 MG/DL (8.5-10.1); CREATININE SERUM 1.56 MG/DL (0.60-1.30); POTASSIUM 4.4 MMOL/L (3.6-5.0); TOTAL PROTEIN 6.8 GM/DL (6.4-8.2)
[2022-12-13] MEDS ORDERED: INSU100I88 SC (14:26)
[2022-12-17] MEDS ORDERED: AMOX1TAB12 PO (10:17)
[2022-12-17] MEDS ORDERED: CYCL10TA25 PO (10:17)
== END 2022-12-31 | disposition home or self-care (01) ==
LOC: ONC 07:43
PROVIDERS: ATTEND Internal Medicine Hematology & Oncology
DX: Z51.11 Encounter for antineoplastic chemotherapy (principal); C64.2 Malignant neoplasm of left kidney, except renal pelvis; C78.01 Secondary malignant neoplasm of right lung; E11.22 Type 2 diabetes mellitus with diabetic chronic kidney disease; I12.9 Hypertensive chronic kidney disease with stage 1 through stage 4 chronic kidney disease, or unspecified chronic kidney disease; N18.30 Chronic kidney disease, stage 3 unspecified; D63.1 Anemia in chronic kidney disease; J44.9 Chronic obstructive pulmonary disease, unspecified; Z90.5 Acquired absence of kidney
CPT/HCPCS: 36415; 80053; 85025; 96413

== ENCOUNTER 2022-12-13 06:04 | Inpatient (IN) | payer BC, MEDICARE ==
[~2022-12-13] VITALS: Ht 193 cm; Wt 77.6 kg
--- NOTE | 2022-12-13 06:38 | ED General ---
General Chief Complaint: Head/Cervical Problems Stated Complaint: NECK PAIN Nursing Triage Note: TO ED VIA POV AND AMBULATORY TO ROOM 5 WITH C/O NECK PAIN THAT STARTED YESTERDAY THAT SHOOTS DOWN HIS BACK. DENIES INJURY. Source of Information: Patient Exam Limitations: No Limitations History of Present Illness Date Seen by Provider: Dec 13, 2022 Time Seen by Provider: 06:15 Initial Comments Patient is a 67-year-old male with a history of lung cancer, diabetes, hypertension who presents to the emergency department with a chief complaint of left-sided neck pain, headache, left shoulder pain. He states he had mild symptoms yesterday, got up for work at 430 this morning was at work and had w orsening pain. He states at 1 point this morning just before coming to the emergency department he turned his head to the left and had a shooting pain and "blacked out" for a few seconds. He did not fall. He states that he had a leftover oxycodone that he took which has not been helping the pain. He has not taken any Tylenol or ibuprofen. He denies any numbness or weakness to the left upper extremity. He denies chest pain or shortness of breath. No nausea. He has had an increasingly productive cough over the last week with congestion. Multiple previous episodes of pneumonia, previous diagnosis of sepsis. Currently sees Dr. Espinosa as his oncologist (lung cancer). 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 Recent fevers or chills. He is currently being treated for right ear infection with eardrops by Dr. Francis. Timing/Duration: 24 Hours Severity: Moderate Modifying Factors: worse with Movement Associated Systoms: Cough, Headaches, Syncope Allergies and Home Medications Allergies Coded Allergies: meperidine (Verified Allergy, Mild, RASH, Pt has received Fentanyl w/o issue, 12/15/18) Patient Home Medication List Home Medication List Reviewed: Yes Amlodipine Besylate (Amlodipine Besylate) 10 Mg Tablet, 10 MG PO HS, (Reported) Entered as Reported by: ILA PAINTING on 03/06/22 0905 Ascorbic Acid (Vitamin C) 500 Mg Tablet, 500 MG PO TID, (Reported) Entered as Reported by: JADA KIMBALL on 09/21/15 1057 Cholecalciferol (Vitamin D3) (Vitamin D3) 25 Mcg Capsule, 25 MCG PO DAILY, (Reported) Entered as Reported by: ILA PAINTING on 07/10/21 1522 Colestipol HCl (Colestipol HCl) 1 Gram Tablet, 2 GM PO DAILY BEFORE BREAKFAST, (Reported) Entered as Reported by: JADA KIMBALL on 04/19/17 1519 Colestipol HCl (Colestipol HCl) 1 Gram Tablet, 2 GM PO 1800 AFTER DINNER, (Repor [place]) Entered as Reported by: ILA PAINTING on 03/06/22 0905 Fluticasone/Vilanterol (Breo Ellipta 200-25 Mcg INH) 1 Each Blst.w.dev, 1 EACH IH DAILY, (Reported) Entered as Reported by: ILA PAINTING on 07/10/21 153 Gabapentin (Neurontin) 300 Mg Capsule, 300 MG PO TID, (Reported) Entered as Reported by: ILA PAINTING on 03/06/22 09 Insulin Aspart (Novolog Flexpen) 100 Unit/Ml (3 Ml) Solution, 8 UNITS SQ AC, (Reported) Entered as Reported by: ILA PAINTING on 11/08/21 100 Insulin Detemir (Levemir Flextouch) 100 Unit/Ml (3 Ml) Insuln.pen, 23 UNIT SQ HS, (Reported) Entered as Reported by: ILA PAINTING on 11/08/21 1004 Ipratropium/Albuterol Sulfate (Iprat-Albut 0.5-3(2.5) mg/3 ml) 0.5 Mg-3 Mg (2.5 Mg Base)/3 Ml Ampul.neb, 3 ML IH TID, (Reported) Entered as Reported by: ILA PAINTING on 11/08/21 1004 Lisinopril (Lisinopril) 20 Mg Tablet, 20 MG PO DAILY, (Reported) Entered as Reported by: ILA PAINTING on 11/08/21 1109 Lutein (Lutein) 20 Mg Tablet, 20 MG PO DAILY, (Reported) Entered as Reported by: JADA KIMBALL on 09/21/15 1057 Prednisone (Prednisone) 20 Mg Tab, 40 MG PO DAILY@0700 Prescribed by: RYANNE ARAYA on 03/07/22 1024 Pyridoxine HCl (Vitamin B-6) 50 Mg Capsule, 50 MG PO DAILY, (Reported) Entered as Reported by: ILA PAINTING on 03/06/22 0905 Tramadol HCl (Tramadol HCl) 50 Mg Tablet, 50 MG PO Q4H PRN for PAIN-MODERATE (5- 7) Prescribed by: Joes Khalil on 06/12/22 1438 Review of Systems Review of Systems Constitutional: see HPI EENTM: other (right ear infection getting better; ear plug in place) Respiratory: cough, phlegm Cardiovascular: no symptoms reported Gastrointestinal: no symptoms reported Genitourinary: no symptoms reported Musculoskeletal: joint pain (left shoulder), neck pain Skin: no symptoms reported Psychiatric/Neurological: Headache; Denies Numbness, Denies Paresthesia; Other (syncope with head turn to the left) All Other Systems Reviewed Negative Unless Noted: Yes Past Tojnikk-Atdfka-Xrfcmu Hx Patient Social History Tobacco Use?: Yes Tobacco type used: Cigarettes Smoking Status: Current Everyday Smoker Substance use?: No Alcohol Use?: No Immunizations Up To Date Tetanus Booster (TDap): More than 5yrs First/Initial COVID19 Vaccinat: MAY 2021 Second COVID19 Vaccination Sal: JUNE 2021 Third COVID19 Vaccination Date: MAY 2021 Seasonal Allergies Seasonal Allergies: Yes Past Medical History Surgery/Hospitalization HX: pneumonia in june Surgeries: Yes (BILAT TKR, BMT, HERNIA X2;CATARACTS;THUMB SURGERY;L NEPHRECTOMY;LUNG BX) Abdominal, Ear Surgery, Eye Surgery, Gallbladder, Joint Replacement, Nephrectomy, Orthopedic Respiratory: Yes (LUNG BIOPSY/PNEUMOTHORAX; LUNG CANCER) Pneumonia, Chronic Bronchitis, COPD Currently Using CPAP: No Currently Using BIPAP: No Cardiac: Yes Hypertension, Rheumatic Fever Neurological: No Reproductive Disorders: No HIV/AIDS: No Genitourinary: Yes (RENAL CANCER--LEFT NEPHRECTOMY) Gastrointestinal: Yes Chronic Diarrhea, Polyps Musculoskeletal: Yes (FX L LEG,CLAVICLE,RIBS,FOOT; KNEE SX/SCREWS;OSTEOARTHRITIS KNEES/BILAT TKR) Degenerate Disk Disease, Arthritis, Chronic Back Pain, Fractures Endocrine: Yes (INSULIN + ORAL MEDICATIONS) Diabetes, Insulin dep HEENT: Yes (GLASSES, PARTIAL ) Cataract Loss of Vision: Denies Hearing Impairment: Hard of Hearing Cancer: Yes (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) Lung, Kidney Did You Recieve Any Treatments: Yes What Type of Treatment Did You: Chemotherapy, Surgical Intervention Psychosocial: No Integumentary: No Blood Disorders: No Adverse Reaction/Blood Tranf: No (N/A) Family Medical History Diabetes mellitus 19 FATHER 19 MOTHER G8 BROTHER FH: skin cancer 19 MOTHER Family history: Arthritis Family history: Coronary thrombosis Family history: Diabetes mellitus History of - respiratory disease No Family History of: Abdominal aortic aneurysm [place]'s disease Alcoholism Aphasia Cancer Cancer of colon Cataract Chest pain Congenital heart disease Congestive heart failure Cystic fibrosis Dementia Dysphagia Family history: Allergy Family history: Alzheimer's disease Family history: Asthma Family history: Breast disease Family history: Cardiovascular disease Family history: Gastrointestinal disease Family history: Glaucoma Family history: Hypertension Family history: Osteoporosis Family history: Thyroid disorder Headache Hearing loss Heart disease Hereditary disease History of - anemia History of - disorder History of drug abuse Human immunodeficiency virus (HIV) seropositivity Hypercholesterolemia Infertile Kidney disease Malignant neoplasm of lung Myocardial infarction Parkinson's disease Prostate cancer Psychotic disorder Seizure disorder Stroke Tuberculosis Visual impairment Heart Disease, Diabetes SOCIAL HISTORY: -ETOH--DENIES USE -SMOKES 1 PPD -DRUGS--DENIES USE PSH: -HERNIA REPAIR X 2 -BILATERAL MYRINGOTOMY TUBES -CARPAL TUNNEL SURGERY -BILATERAL CATARACT SURGERY -SCREWS IN KNEE AND LATER REMOVED -BILATERAL KNEE REPLACEMENTS 2013 -LEFT NEPHRECTOMY FOR CANCER 2013 -LUNG BIOPSY WITH PNEUMOTHORAX Physical Exam Vital Signs Vital Signs - First Documented 12/13/22 12/13/22 06:18 07:15 Temp 35.8 Pulse 87 Resp 18 B/P (MAP) 92/56 (68) Pulse Ox 91 O2 Delivery Room Air O2 Flow Rate 2.00 Capillary Refill : Less Than 3 Seconds Height, Weight, BMI Height: 6'4.00" Weight: 203lbs. 5.0oz. [id number]; 21.00 BMI Method:Stated General Appearance: No Apparent Distress, Chronically ill, Thin Eyes: Bilateral Eye Normal Inspection, Bilateral Eye PERRL, Bilateral Eye EOMI HEENT: Other (ear plug in place on the left) Neck: Other (tenderness to the left paraspinous musculature and left lateral neck; no appreciable swelling) Respiratory: Lungs Clear (anteriorly), No Accessory Muscle Use, No Respiratory Distress, Decreased Breath Sounds (posteriorly), Other (room air sats 89-93%) Cardiovascular: Regular Rate, Rhythm, Normal Peripheral Pulses Back: Normal Inspection Extremity: Normal Inspection, Normal Range of Motion, Non Tender, No Calf Tenderness, Other (LUE distal NVI) Neurologic/Psychiatric: Alert, Oriented x3, No Motor/Sensory Deficits, Normal Mood/Affect, 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 care director II-XII Norm as Tested Skin: Normal Color, Warm/Dry Focused Exam Lactate Level 12/13/22 07:02: Lactic Acid Level 0.68 Lactic Acid Level Laboratory Tests Test 12/13/22 07:02 Lactic Acid Level 0.68 MMOL/L (0.50-2.00) Procedures/Interventions Date of ETT Placement: Jul 07, 2021 Time of ETT Placement: 2236 Progress/Results/Core Measures Suspected Sepsis SIRS Temperature: Pulse: 87 Respiratory Rate: 18 Laboratory Tests 12/13/22 07:02: White Blood Count 10.6 Blood Pressure 92 /56 Mean: 68 12/13/22 07:02: Lactic Acid Level 0.68 Laboratory Tests 12/13/22 07:02: Creatinine 2.00H, INR Comment 1.0, Platelet Count 195, Total Bilirubin 0.6 Results/Orders Lab Results Laboratory Tests Test 12/13/22 07:02 Range/Units White Blood Count 10.6 4.3-11.0 10^3/uL Red Blood Count 3.99 L 4.30-5.52 10^6/uL Hemoglobin 11.8 L 13.3-17.7 g/dL Hematocrit 38 L 40-54 % Mean Corpuscular Volume 95 80-99 fL Mean Corpuscular Hemoglobin 30 25-34 pg Mean Corpuscular Hemoglobin Concent 31 L 32-36 g/dL Red Cell Distribution Width 14.0 10.0-14.5 % Platelet Count 195 130-400 10^3/uL Mean Platelet Volume 9.7 9.0-12.2 fL Immature Granulocyte % (Auto) 0 % Neutrophils (%) (Auto) 79 H 42-75 % Lymphocytes (%) (Auto) 10 L 12-44 % Monocytes (%) (Auto) 10 0-12 % Eosinophils (%) (Auto) 0 0-10 % Basophils (%) (Auto) 0 0-10 % Neutrophils # (Auto) 8.4 H 1.8-7.8 10^3/uL Lymphocytes # (Auto) 1.1 1.0-4.0 10^3/uL Monocytes # (Auto) 1.1 H 0.0-1.0 10^3/uL Eosinophils # (Auto) 0.0 0.0-0.3 10^3/uL Basophils # (Auto) 0.0 0.0-0.1 10^3/uL Immature Granulocyte # (Auto) 0.0 0.0-0.1 10^3/uL Prothrombin Time 13.0 12.2-14.7 SEC INR Comment 1.0 0.8-1.4 Activated Partial Thromboplast Time 33 24-35 SEC Sodium Level 136 135-145 MMOL/L Potassium Level 4.9 3.6-5.0 MMOL/L Chloride Level 101 98-107 MMOL/L Carbon Dioxide Level 26 21-32 MMOL/L Anion Gap 9 5-14 MMOL/L Blood Urea Nitrogen 32 H 7-18 MG/DL Creatinine 2.00 H 0.60-1.30 MG/DL Estimat Glomerular Filtration Rate 36 BUN/Creatinine Ratio 16 Glucose Level 222 H 70-105 MG/DL Lactic Acid Level 0.68 0.50-2.00 MMOL/L Calcium Level 8.8 8.5-10.1 MG/DL Corrected Calcium 8.9 8.5-10.1 MG/DL Total Bilirubin 0.6 0.1-1.0 MG/DL Aspartate Amino Transf (AST/SGOT) 20 5-34 U/L Alanine Aminotransferase (ALT/SGPT) 17 0-55 U/L Alkaline Phosphatase 55 40-136 U/L Total Protein 7.0 6.4-8.2 GM/DL Albumin 3.9 3.2-4.5 GM/DL My Orders Orders - TIERRA MOODY MD Cbc With Automated Diff (12/13/22 06:32) Comprehensive Metabolic Panel (12/13/22 06:32) Blood Culture (12/13/22 06:32) Sputum Culture (12/13/22 06:32) Urinalysis (12/13/22 06:32) Urine Culture (12/13/22 06:32) Protime With Inr (12/13/22 06:32) Partial Thromboplastin Time (12/13/22 06:32) Chest 1 View, Ap/Pa Only (12/13/22 06:32) Ed Iv/Invasive Line Start (12/13/22 06:32) Ed Iv/Invasive Line Start (12/13/22 06:32) Vital Signs Adult Sepsis Patie Q15M (12/13/22 06:32) O2 (12/13/22 06:32) Remove Rings In Anticipation O (12/13/22 06:32) Lactic Acid Analyzer (12/13/22 06:32) Ekg Tracing (12/13/22 06:32) Ns Iv 1000 Ml (Sodium Chloride 0.9%) (12/13/22 06:45) Us Carotid Mono Complete [id number] (12/13/22 07:42) Fentanyl Inj (Sublimaze Injection) (12/13/22 07:45) Cyclobenzaprine Tablet (Flexeril Tablet) (12/13/22 07:43) Cefepime Injection (Maxipime Injection) (12/13/22 08:00) Ns Iv 1000 Ml (Sodium Chloride 0.9%) (12/13/22 09:48) Ed Admission (Communication) (12/13/22 11:08) Medications Given in ED Current Medications Medications Dose Ordered Sig/Bonnie Route Start Time Stop Time Status Last Admin Dose Admin Cefepime HCl 1000 mg/Sodium Chloride 50 ml @ 100 mls/hr ONCE ONCE IV 12/13/22 08:00 12/13/22 08:29 DC 12/13/22 08:08 100 MLS/HR Fentanyl Citrate 25 mcg ONCE ONCE IVP 12/13/22 07:45 12/13/22 07:46 DC 12/13/22 07:51 25 MCG Vital Signs/I&O 12/13/22 12/13/22 12/13/22 06:18 07:15 07:51 Temp 35.8 35.8 Pulse 87 Resp 18 B/P (MAP) 92/56 (68) Pulse Ox 91 98 O2 Delivery Room Air Nasal Cannula O2 Flow Rate 2.00 Capillary Refill : Less Than 3 Seconds Blood Pressure Mean: 68 Progress Note #1: Time: 08:48 Progress Note Patient re-evaluated at this time. Neck pain better. BP 83/58. Not tachy. Sats 88%, placed on 2L O2 PNC. (wears 10L at night). Will discuss with Hospitalist - ICU admit. Progress Note #2: Time: 10:00 Progress Note Patient seen and evaluated by me. Evaluation today includes review of old medical records in the [employer] system, physical exam, "sepsis" work-up to include CBC, Chem-12, blood cultures, coags, urinalysis, lactic acid, single view chest x-ray, carotid ultrasound bilateral. Pertinent physical exam findings thin elderly male in no acute distress. Initially 98 systolic, not tac hycardic. Room air sats 89 to 92%. No increased work of breathing or respiratory distress. He appears adequately hydrated. His heart is regular, lungs diminished throughout with more expiratory wheeze noted on the right than the left side. His abdomen is soft. He moves all extremities equally. He has notable tenderness to the musculature of the left cervical spine approximately C6-7, across the top of the shoulder and down over the scapula. He is neurovascularly intact to the left upper extremity. No weakness is appreciated on physical exam. Diagnosis based on history and physical exam, musculoskeletal neck pain with radiculopathy, cervical stenosis, carotid occlusive disease, sepsis/pneumonia. Labs and imaging independently reviewed and interpreted by me. His CBC shows a white count of 10.6 with hemoglobin of 11.8, hematocrit of 38, platelet count of 195. 79% segmented neutrophils and 10% lymphs. Demonstrating remarkable for a BUN of 32 creatinine of 2.0 which is above his normal baseline. His serum glucose is 222. Coags are within normal limits. Lactic acid is 0.68. Chest x- ray reveals what appears to be a right lower lobe infiltrate/pneumonia. His carotid ultrasound was read by radiology as no significant disease. Patient is treated in the emergency department with a little fentanyl 25 mcg and 5 mg of Flexeril p.o. The patient continued to decline in his blood pressure throughout his stay. At 1 point in the low 80s systolic. IV fluids started for fluid resuscitation. He maintained somewhere in the upper 80s mid 90s systolic blood pressure. Objectively does not meet sepsis criteria however with his hypotension and pneumonia will be admitted to the ICU for further treatment. I did administer 1 g of cefepime. Case was discussed with Dr. Jacey Araya the hospitalist on for the hospitalist who accepts the patient for admission. ECG Initial ECG Impression Date: Dec 13, 2022 Initial ECG Impression Time: 06:38 Initial ECG Rate: 79 Initial ECG Rhythm: Normal Sinus Initial ECG Intervals NE 145 QRS 120 QTc 417 Comment RBBB; no ST elevation or depression; no ectopy Diagnostic Imaging Comments [email or web address] [place], [place] NAME: JAROD LOJA REC#: [id number] PT STATUS: REG ER : 1955 PHYSICIAN: TIERRA MOODY MD ADMIT DATE: 12/13/22/ER Draft Date of Exam:12/13/22 US CAROTID MONO COMPLETE [id number] CLINICAL INDICATION: Patient with severe left neck pain when patient turns head. Comparison: None Exam: Real-time ultrasound carotid Doppler duplex imaging is performed bilaterally with multiple real-time grayscale images obtained in various projections. Additional spectral analysis and color Doppler duple images were also obtained. Peak systolic velocity, ICA/CCA peak systolic ratio, spectral analysis, and vascular morphology are studied. Findings: ARTERY VELOCITY Right Left CCA 0.78 m/s 0.80 m/s ICA 0.94 m/s 0.95 m/s ECA 1.03 m/s 0.97 m/s ICA/CCA 1.2 1.2 VERT.ART Antegrade Antegrade There is mild bilateral carotid artery atherosclerotic disease. Impression: There is mild bilateral carotid artery atherosclerotic disease with no grayscale or Doppler evidence of significant vascular stenosis. Dictated on workstation # [id number] Dict: 12/13/22 0837 Trans: 12/13/22 0845 MARIAELENA [id number] Interpreted by: ZHANG NICE MD Electronically signed by: Siddharth Imaging: Xray Plain Films/CT/US/NM/MRI: chest Comments CXR independently reviewed and interpreted by wy - nikia RLL pneumonia Departure Communication (Admissions) Time/Spoke to Admitting Phy: 10:[address] Araya (hospitalist) Impression Primary Impression: Community acquired pneumonia Qualified Codes: J18.9 - Pneumonia, unspecified organism Additional Impressions: COPD exacerbation Neck pain, acute Disposition: ADMITTED INPATIENT Condition: Critical Admissions Decision to Admit Reason: Admit from ER (General) Decision to Admit/Date: Dec 13, 2022 Time/Decision to Admit Time: 08:48 Departure-Patient Inst. Referrals: SHAWN CALLEJAS MD (PCP/Family) Primary Care Physician Copy Copies To 1: SHAWN CALLEJAS MD, KATHRYN M MD Dec 13, 2022 06:38
[2022-12-13 07:14] LABS: BASOPHILS % (AUTO) 0 % (0-10); EOSINOPHILS % (AUTO) 0 % (0-10); HEMATOCRIT 38 % (40-54); HEMOGLOBIN 11.8 g/dL (13.3-17.7); LYMPHOCYTES # (AUTO) 1.1 10^3/uL (1.0-4.0); LYMPHOCYTES % (AUTO) 10 % (12-44); MEAN CORPUSCULAR HEMOGLOBIN 30 pg (25-34); MEAN CORPUSCULAR HGB CONC 31 g/dL (32-36); MEAN CORPUSCULAR VOLUME 95 fL (80-99); MEAN PLATELET VOLUME 9.7 fL (9.0-12.2); MONOCYTES # (AUTO) 1.1 10^3/uL (0.0-1.0); MONOCYTES % (AUTO) 10 % (0-12); NEUTROPHILS # (AUTO) 8.4 10^3/uL (1.8-7.8); NEUTROPHILS % (AUTO) 79 % (42-75); PLATELET COUNT 195 10^3/uL (130-400); WHITE BLOOD COUNT 10.6 10^3/uL (4.3-11.0)
[2022-12-13] MEDS: NS IV 1000 ML 1,000 ML IV SCH ×2 (07:16→14:59)
[2022-12-13 07:25] LABS: ALBUMIN 3.9 GM/DL (3.2-4.5); POTASSIUM 4.9 MMOL/L (3.6-5.0)
[2022-12-13 07:26] LABS: CALCIUM 8.8 MG/DL (8.5-10.1)
[2022-12-13 07:29] LABS: BILIRUBIN,TOTAL 0.6 MG/DL (0.1-1.0)
[2022-12-13] MEDS ORDERED: CYCLOBENZAPRINE 10 MG (FLEXERIL) TAB PO STA (07:43)
[2022-12-13] MEDS ORDERED: fentaNYL INJ 100 MCG/2 ML AMP IVP ONE (07:45)
[2022-12-13] MEDS ORDERED: CEFEPIME INJECTION 1,000 MG in NS (IVPB) 50 ML IV ONE (08:00)
--- NOTE | 2022-12-13 08:45 | Diagnostic Imaging Report ---
CLINICAL INDICATION: Patient with severe left neck pain when patient turns head. Comparison: None Exam: Real-time ultrasound carotid Doppler duplex imaging is performed bilaterally with multiple real-time grayscale images obtained in various projections. Additional spectral analysis and color Doppler duple images were also obtained. Peak systolic velocity, ICA/CCA peak systolic ratio, spectral analysis, and vascular morphology are studied. Findings: ARTERY VELOCITY Right Left CCA 0.78 m/s 0.80 m/s ICA 0.94 m/s 0.95 m/s ECA 1.03 m/s 0.97 m/s ICA/CCA 1.2 1.2 VERT.ART Antegrade Antegrade There is mild bilateral carotid artery atherosclerotic disease. Impression: There is mild bilateral carotid artery atherosclerotic disease with no grayscale or Doppler evidence of significant vascular stenosis. Dictated by: Dictated on workstation # [id number]
--- NOTE | 2022-12-13 09:00 | Diagnostic Imaging Report ---
EXAMINATION: Chest 1 view HISTORY: Cough COMPARISON: 03/06/2022 FINDINGS: There is right base airspace opacity. No pleural effusion or pneumothorax. Heart size is normal. IMPRESSION: 1. Right base airspace opacity may represent atelectasis or pneumonia. Dictated by: Dictated on workstation # [id number]
[2022-12-13] MEDS ORDERED: NS IV 1000 ML 1,000 ML IV STA (09:48)
[2022-12-13] MEDS: LACTATED RINGERS 1,000 ML IV SCH ×4 (13:02→21:22)
[2022-12-13] MEDS ORDERED: CYCLOBENZAPRINE 10 MG (FLEXERIL) TAB PO PRN (13:45)
[2022-12-13] MEDS ORDERED: HYDROcodone/APAP 5 MG/325 MG (LORTAB) TAB PO PRN (13:45)
--- NOTE | 2022-12-13 13:48 | History & Physical-Hospitalist ---
History of Present Illness HPI/Chief Complaint 67-year-old male with a past medical history of metastatic renal cancer status post nephrectomy, COPD, chronic kidney disease, hypertension, diabetes who presented to the emergency department due to syncope. He reports that he has had neck pain this morning and he was at work and turned his head and got worsening of his neck pain and then passed out. He decided to come in for evaluation and he was found to be slightly high hypotensive and hypoxic and imaging revealed a right-sided pneumonia. Source: patient Date Seen 12/13/22 Time Seen by a Provider: 13:40 Attending Physician Shawn Clayton MD PCP Admitting Physician: Ryanne Araya MD Attending Physician: Ryanne Araya MD Referring Physician Date of Admission Dec 13, 2022 at 11:27 Home Medications & Allergies Home Medications Reviewed patient Home Medication Reconciliation performed by pharmacy medication reconciliations technician automated equipment and/or nursing. Patients Allergies have been reviewed. Allergies Allergies Coded Allergies meperidine (Verified Allergy, Mild, RASH, Pt has received Fentanyl w/o issue, 12/15/18) Past Aocjqzt-Uuiyxo-Ehzvdu Hx Patient Social History Tobacco Use?: Yes Tobacco type used: Cigarettes Smoking Status: Current Everyday Smoker Substance use?: No Alcohol Use?: No Immunizations Up To Date Date of Influenza Vaccine: Mar 03, 2018 First/Initial COVID19 Vaccinat: MAY 2021 Second COVID19 Vaccination Sal: JUNE 2021 Tetanus Booster (TDap): Unknown Date of Pneumonia Vaccine: Sep 08, 2014 Seasonal Allergies Seasonal Allergies: Yes Current Status Primary Language: Pakistani Preferred Spoken Language: Pakistani Is interpretation needed?: No Past Medical History Surgeries: Abdominal, Ear Surgery, Eye Surgery, Gallbladder, Joint Replacement, Nephrectomy, Orthopedic Pneumonia, Chronic Bronchitis, COPD Currently Using CPAP: No Currently Using BIPAP: No Hypertension, Rheumatic Fever HIV/AIDS: No Chronic Diarrhea, Polyps Degenerate Disk Disease, Arthritis, Chronic Back Pain, Fractures Diabetes, Insulin dep Cataract Loss of Vision: Denies Hearing Impairment: Hard of Hearing Lung, Kidney Did You Recieve Any Treatments: Yes What Type of Treatment Did You: Chemotherapy, Surgical Intervention Blood Disorders: No Adverse Reaction/Blood Tranf: No (N/A) Family Medical History Diabetes mellitus 19 FATHER 19 MOTHER G8 BROTHER FH: skin cancer 19 MOTHER Family history: Arthritis Family history: Coronary thrombosis Family history: Diabetes mellitus History of - respiratory disease No Family History of: Abdominal aortic aneurysm Karlos's disease Alcoholism Aphasia Cancer Cancer of colon Cataract Chest pain Congenital heart disease Congestive heart failure Cystic fibrosis Dementia Dysphagia Family history: Allergy Family history: Alzheimer's disease Family history: Asthma Family history: Breast disease Family history: Cardiovascular disease Family history: Gastrointestinal disease Family history: Glaucoma Family history: Hypertension Family history: Osteoporosis Family history: Thyroid disorder Headache Hearing loss Heart disease Hereditary disease History of - anemia History of - disorder History of drug abuse Human immunodeficiency virus (HIV) seropositivity Hypercholesterolemia Infertile Kidney disease Malignant neoplasm of lung Myocardial infarction Parkinson's disease Prostate cancer Psychotic disorder Seizure disorder Stroke Tuberculosis Visual impairment Heart Disease, Diabetes SOCIAL HISTORY: -ETOH--DENIES USE -SMOKES 1 PPD -DRUGS--DENIES USE PSH: -HERNIA REPAIR X 2 -BILATERAL MYRINGOTOMY TUBES -CARPAL TUNNEL SURGERY -BILATERAL CATARACT SURGERY -SCREWS IN KNEE AND LATER REMOVED -BILATERAL KNEE REPLACEMENTS 2013 -LEFT NEPHRECTOMY FOR CANCER 2013 -LUNG BIOPSY WITH PNEUMOTHORAX Review of Systems Constitutional: see HPI Physical Exam Physical Exam Vital Signs Vital Signs - First Documented 12/13/22 12/13/22 06:18 07:15 Temp 35.8 Pulse 87 Resp 18 B/P (MAP) 92/56 (68) Pulse Ox 91 O2 Delivery Room Air O2 Flow Rate 2.00 Capillary Refill : Less Than 3 Seconds Height, Weight, BMI Height: 6'4.00" Weight: 203lbs. 5.0oz. 92.213621hj; 21.00 BMI Method:Stated General Appearance: No Apparent Distress Respiratory: Lungs Clear, Crackles Cardiovascular: No Murmur, Bradycardia Gastrointestinal: Normal Bowel Sounds, Soft Neurologic/Psychiatric: Alert, Oriented x3 Results Results/Procedures Labs Laboratory Tests 12/13/22 07:02 12/14/22 04:13 Patient resulted labs reviewed. Imaging: Reviewed Imaging Report Imaging [facility] [place] NAME: [facility] [place] NAME: JAROD LOJA MED REC#: [id number] PT STATUS: ADM IN : 1955 PHYSICIAN: TIERRA MOODY MD ADMIT DATE: 12/13/22/ICU Signed Date of Exam:12/13/22 US CAROTID MONO COMPLETE [id number] CLINICAL INDICATION: Patient with severe left neck pain when patient turns head. Comparison: None Exam: Real-time ultrasound carotid Doppler duplex imaging is performed bilaterally with multiple real-time grayscale images obtained in various projections. Additional spectral analysis and color Doppler duple images were also obtained. Peak systolic velocity, ICA/CCA peak systolic ratio, spectral analysis, and vascular morphology are studied. Findings: ARTERY VELOCITY Right Left CCA 0.78 m/s 0.80 m/s ICA 0.94 m/s 0.95 m/s ECA 1.03 m/s 0.97 m/s ICA/CCA 1.2 1.2 VERT.ART Antegrade Antegrade There is mild bilateral carotid artery atherosclerotic disease. Impression: There is mild bilateral carotid artery atherosclerotic disease with no grayscale or Doppler evidence of significant vascular stenosis. Dictated by: Dictated on workstation # [id number] Dict: 12/13/22 [id number] Trans: 12/13/22 174 MARIAELENA [id number] Interpreted by: ZHANG NICE MD Electronically signed by: ZHANG NICE MD 12/13/22 174 MED REC#: [id number] PT STATUS: ADM IN : 1955 PHYSICIAN: TIERRA MOODY MD ADMIT DATE: 12/13/22/ICU Signed Date of Exam:12/13/22 CHEST 1 VIEW, AP/PA ONLY EXAMINATION: Chest 1 view HISTORY: Cough COMPARISON: 03/06/2022 FINDINGS: There is right base airspace opacity. No pleural effusion or pneumothorax. Heart size is normal. IMPRESSION: 1. Right base airspace opacity may represent atelectasis or pneumonia. 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.5 Continue IVF Trend Monitor UOP Syncope Carotid usg with mild disease Noticed on telemetry to drop rate into the 30s Cardiology consulted, appreciate recs HTN Currently borderline hypotensive Hold home meds Recently double his lisinopril so likely contributing IDDMII Continue h/o metastatic renal cell carcinoma lung mets Follows with Dr Ewa GUILLEN ppx: Lovenox Diagnosis/Problems Diagnosis/Problems (1) Neck pain, acute Status: Acute (2) Community acquired pneumonia Status: Acute Qualifiers: Laterality: right Lung location: lower lobe of lung Qualified Codes: J18.9 - Pneumonia, unspecified organism (3) MARÍA (acute kidney injury) Status: Acute (4) Acute respiratory failure with hypoxia and hypercapnia Status: Acute (5) PNA (pneumonia) Onset Date: ~ 07/08/2021 Status: Acute (6) 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 (7) Insulin dependent diabetes mellitus Status: Chronic (8) COPD (chronic obstructive pulmonary disease) Status: Acute (9) Essential (primary) hypertension Status: Chronic Clinical Quality Measures Smoking Cessation Counseling: Counseling-Symptomatic: 3-10 Minutes Discussed Options Including: Nicotine Patch RYANNE ARAYA MD Dec 13, 2022 13:48
[2022-12-13] MEDS ORDERED: INSU100I88 SC (14:26)
[2022-12-13] MEDS ORDERED: AZITHROMYCIN INJECTION 500 MG in NS (IVPB) 250 ML IV NR (15:15)
--- NOTE | 2022-12-13 15:16 | Tele-ICU Consult ---
History of Present Illness History of Present Illness Date Seen by Provider: Dec 13, 2022 Time Seen by Provider: 15:15 Date of Admission History of Present Illness (Tele-ICU Physician , consultation as per request of PCP Service provided via interactive audio and video telecommunications E-CARE system to a patient admitted to ICU bed in [facility]. Available chart/ vitals / labs / Images reviewed H&P is from ER notes Patient's information available about PMH, Shx, Fhx allergy reviewed inEMR. ROS as per chart and RN report Now in ICU, hemodynamically stable Video assessment done using teleICU camera, rest of exam as per RN Discussed with RN. Hospital course: 67 y/o male c/o neck pain that radiates down back A/P PNA , right - abx started - will add atypical coverage ( given bradycardia consider mycoplasma , and legionella ) check for Ab/AG MARÍA / CKD (s/p nephrectomy after renal CA 2016 ) - cotn hydration Neck pain - US carodids - no vascular stenosis. Lethargy - ? 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 Discussed with RN to reach out if any questions or concerns A total of _31 minutes of critical care time was devoted to this patient today, required to treat and/or prevent further deterioration of critical care condition ( as above ) . I am remotely monitoring this patient from another state. I am unable to do the bedside exam, and history/physical and pertinent information is taken from other notes in the computer and bedside staff. . Allergies and Home Medications Allergies Coded Allergies: meperidine (Verified Allergy, Mild, RASH, Pt has received Fentanyl w/o issue, 12/15/18) Home Medications Ascorbic Acid 500 Mg Tablet, 500 MG PO DAILY, (Reported) Colestipol HCl 1 Gram Tablet, 2 GM PO DAILY, (Reported) TAKES 2 (1GM) TABLET Colestipol HCl 1 Gram Tablet, 1 GM PO 1400,2000, (Reported) Fluticasone/Vilanterol 1 Each Blst.w.dev, 1 EACH IH DAILY, (Reported) Gabapentin 300 Mg Capsule, 300 MG PO TID, (Reported) Insulin Aspart 100 Unit/Ml (3 Ml) Solution, 8 UNITS SQ AC, (Reported) Insulin Detemir 100 Unit/Ml (3 Ml) Insuln.pen, 22 UNITS SC BID, (Reported) Ipratropium/Albuterol Sulfate 0.5 Mg-3 Mg (2.5 Mg Base)/3 Ml Ampul.neb, 3 ML NEB TID, (Reported) Lisinopril 20 Mg Tablet, 40 MG PO DAILY, (Reported) TAKES 2 (20MG) TABS Pyridoxine HCl 50 Mg Capsule, 50 MG PO DAILY, (Reported) Past Medical/Social/Family Hx Patient Social History Tobacco Use?: Yes Tobacco type used: Cigarettes Smoking Status: Current Everyday Smoker Substance use?: No Alcohol Use?: No Immunizations Up To Date First/Initial COVID19 Vaccinat: MAY 2021 Second COVID19 Vaccination Sal: JUNE 2021 Tetanus Booster (TDap): Unknown Date of Pneumonia Vaccine: Sep 08, 2014 Current Status Primary Language: Albanian Preferred Spoken Language: Albanian Is interpretation needed?: No Family Medical History Family Hx: SOCIAL HISTORY: -ETOH--DENIES USE -SMOKES 1 PPD -DRUGS--DENIES USE PSH: -HERNIA REPAIR X 2 -BILATERAL MYRINGOTOMY TUBES -CARPAL TUNNEL SURGERY -BILATERAL CATARACT SURGERY -SCREWS IN KNEE AND LATER REMOVED -BILATERAL KNEE REPLACEMENTS 2013 -LEFT NEPHRECTOMY FOR CANCER 2013 -LUNG BIOPSY WITH PNEUMOTHORAX Review of Systems Constitutional: other Focused Exam Possible Source: Other Lactate Level 12/13/22 07:02: Lactic Acid Level 0.68 Height, Weight, BMI Height: 6'4.00" Weight: 203lbs. 5.0oz. 92.762039yj; 21.00 BMI Method:Stated Exam Exam Patient acknowledged, consented, and participated in this virtual visit which was conducted using real time audio/video Vital Signs Date Time Temp Pulse Resp B/P (MAP) Pulse Ox O2 Delivery O2 Flow Rate FiO2 12/13/22 14:00 69 7 96/48 (64) 94 Nasal Cannula 5.00 12/13/22 13:00 55 7 99/46 (63) 92 Nasal Cannula 4.00 12/13/22 12:00 35.8 57 19 83/50 (61) 92 Nasal Cannula 4.00 12/13/22 11:52 61 12/13/22 11:51 35.8 49 9 120/61 (80) 99 Nasal Cannula 2.00 12/13/22 11:30 36.6 72 18 111/53 99 Nasal Cannula 2.00 12/13/22 07:51 35.8 12/13/22 07:15 98 Nasal Cannula 2.00 12/13/22 06:18 35.8 87 18 92/56 (68) 91 Room Air Height & Weight Height: 6'4.00" Weight: 203lbs. 5.0oz. 92.031464dd; 21.00 BMI Method:Stated General Appearance: No Apparent Distress, Chronically ill, Thin HEENT: Other (ear plug in place on the left) Neck: Other (tenderness to the left paraspinous musculature and left lateral neck; no appreciable swelling) Respiratory: Lungs Clear (anteriorly), No Accessory Muscle Use, No Respiratory Distress, Decreased Breath Sounds (posteriorly), Other (room air sats 89-93%) Cardiovascular: Regular Rate, Rhythm, Normal Peripheral Pulses Capillary Refill: Less Than 3 Seconds Extremity: Normal Inspection, Normal Range of Motion, Non Tender, No Calf Tenderness, Other (LUE distal NVI) Neurologic/Psychiatric: Alert, Oriented x3, No Motor/Sensory Deficits, Normal Mood/Affect, broke handler II-XII Norm as Tested Skin: Normal Color, Warm/Dry Results Lab Laboratory Tests 12/13/22 07:02 Assessment/Plan Assessment/Plan 1 LISA LADD MD Dec 13, 2022 15:15
[2022-12-13 16:00] LABS: ABG BASE EXCESS 4.7 MMOL/L (-2.5-2.5); ABG OXYGEN SATURATION 91 % (94-100); ABG PCO2 66 MMHG (35-45); ABG PO2 66 MMHG (79-93); ABG TCO2 32.8 MMOL/L (21.0-31.0); ALLENS TEST YES-POS; INSPIRED O2 2L; VENTILATOR NO
[2022-12-13] MEDS ORDERED: inSUlin ASPART (NovoLOG) 1 UNIT/0.01 ML (CHARGE PER UNIT) SC SCH (16:00)
[2022-12-13 16:04] LABS: ABG PH 7.29 (7.37-7.43)
[2022-12-13] MEDS: inSUlin ASPART (NovoLOG) 1 UNIT/0.01 ML (CHARGE PER UNIT) SC SCH ×2 (16:32→20:49)
[2022-12-13] MEDS: CEFEPIME INJECTION 1,000 MG in NS (IVPB) 50 ML IV SCH ×2 (16:58→23:47)
--- NOTE | 2022-12-13 18:41 | Consultation-Cardiology ---
HPI-Cardiology Cardiology Consultation: Date of Consultation 12/13/22 Date of Admission Attending Physician Sha Clayton MD Admitting Physician Admitting Physician: Ryanne Dyson MD Attending Physician: Ryanne Dyson MD Consulting Physician Mikel PENG MD HPI: Time Seen by a Provider: 17:00 Chief Complaint: Syncope This is a 67-year-old gentleman who has previous history of renal cancer s/p right nephrectomy, pulmonary metastatic disease. A previous lung biopsy resulted in pneumothorax. According to the patient his cancer is in remission. Patient also has a history of COPD, chronic kidney disease, hypertension and diabetes. According to the patient he had significant neck pain especially on turning his head and during certain maneuvers he lost consciousness. He presented to the ER and was found to be hypoxic and chest x-ray showed possible right-sided pneumonia. Review of Systems-Cardiology Review of Systems Constitutional: no symptoms reported Eyes: no symptoms reported Ears/Nose/Throat: no symptoms reported Respiratory: shortness of breath Cardiovascular: syncope Gastrointestinal: no symptoms reported Genitourinary: no symptoms reported Musculoskeletal: neck pain Skin: no symptoms reported Psychiatric/Neurological: syncope Hematologic: no symptoms reported All Other Systems Reviewed Negative Unless Noted: Yes FXE-Mpomhx-Dowbqj Hx Patient Social History Smoking Status: Current Everyday Smoker 2nd Hand Smoke Exposure: Yes Alcohol Use?: No Tobacco type used: Cigarettes Immunizations Up To Date Tetanus Booster (TDap): More than 5yrs Date of Pneumonia Vaccine: Sep 08, 2014 Date of Influenza Vaccine: Mar 03, 2018 Past Medical History PMH As described under Assessment. Family Medical History Family Medical History: Niece reports family h/o cancer and diabetes. No reported family h/o CAD. Family History: Diabetes mellitus 19 FATHER 19 MOTHER G8 BROTHER FH: skin cancer 19 MOTHER Family history: Arthritis Family history: Coronary thrombosis Family history: Diabetes mellitus History of - respiratory disease No Family History of: Abdominal aortic aneurysm Andrews's disease Alcoholism Aphasia Cancer Cancer of colon Cataract Chest pain Congenital heart disease Congestive heart failure Cystic fibrosis Dementia Dysphagia Family history: Allergy Family history: Alzheimer's disease Family history: Asthma Family history: Breast disease Family history: Cardiovascular disease Family history: Gastrointestinal disease Family history: Glaucoma Family history: Hypertension Family history: Osteoporosis Family history: Thyroid disorder Headache Hearing loss Heart disease Hereditary disease History of - anemia History of - disorder History of drug abuse Human immunodeficiency virus (HIV) seropositivity Hypercholesterolemia Infertile Kidney disease Malignant neoplasm of lung Myocardial infarction Parkinson's disease Prostate cancer Psychotic disorder Seizure disorder Stroke Tuberculosis Visual impairment Allergies and Home Medications Allergies Coded Allergies: meperidine (Verified Allergy, Mild, RASH, Pt has received Fentanyl w/o issue, 12/15/18) Patient Home Medication List Home Medication List Reviewed: Yes Ascorbic Acid (Vitamin C) 500 Mg Tablet, 500 MG PO DAILY, (Reported) Entered as Reported by: JADA KIMBALL on 09/21/15 1057 Last Action: Continued Colestipol HCl (Colestipol HCl) 1 Gram Tablet, 2 GM PO DAILY, (Reported) Entered as Reported by: JADA KIMBALL on 04/19/17 1519 Last Action: Continued Colestipol HCl (Colestipol HCl) 1 Gram Tablet, 1 GM PO 1399,1999, (Reported) Entered as Reported by: ILA PAINTING on 03/06/22 09 Last Action: Continued Fluticasone/Vilanterol (Breo Ellipta 200-25 Mcg INH) 1 Each Blst.w.dev, 1 EACH IH DAILY, (Reported) Entered as Reported by: ILA PAINTING on 07/10/21 1533 Last Action: Continued Gabapentin (Neurontin) 300 Mg Capsule, 300 MG PO TID, (Reported) Entered as Reported by: ILA PAINTING on 03/06/22904 Last Action: Continued Insulin Aspart (Novolog Flexpen) 100 Unit/Ml (3 Ml) Solution, 8 UNITS SQ AC, (Reported) Entered as Reported by: ILA PAINTING on 11/08/21 100 Last Action: Held Insulin Detemir (Levemir Flexpen) 100 Unit/Ml (3 Ml) Insuln.pen, 22 UNITS SC BID, (Reported) Entered as Reported by: ILA PAINTING on 12/13/22 1426 Last Action: Reviewed Ipratropium/Albuterol Sulfate (Iprat-Albut 0.5-3(2.5) mg/3 ml) 0.5 Mg-3 Mg (2.5 Mg Base)/3 Ml Ampul.neb, 3 ML NEB TID, (Reported) Entered as Reported by: ILA PAINTING on 11/08/21 100 Last Action: Continued Lisinopril (Lisinopril) 20 Mg Tablet, 40 MG PO DAILY, (Reported) Entered as Reported by: ILA PAINTING on 11/08/21 1109 Last Action: Held Pyridoxine HCl (Vitamin B-6) 50 Mg Capsule, 50 MG PO DAILY, (Reported) Entered as Reported by: ILA PAINTING on 03/06/22904 Last Action: Held Discontinued Medications Amlodipine Besylate (Amlodipine Besylate) 10 Mg Tablet, 10 MG PO HS, (Reported) Discontinued Reason: No Longer Taking Entered as Reported by: ILA PAINTING on 03/06/22904 Last Action: Discontinued Cholecalciferol (Vitamin D3) (Vitamin D3) 25 Mcg Capsule, 25 MCG PO DAILY, (Reported) Discontinued Reason: No Longer Taking Entered as Reported by: ILA PAINTING on 07/10/21 1522 Last Action: Discontinued Insulin Detemir (Levemir Flextouch) 100 Unit/Ml (3 Ml) Insuln.pen, 23 UNIT SQ HS, (Reported) Discontinued Reason: No Longer Taking Entered as Reported by: ILA PAINTING on 11/08/21 1004 Last Action: Discontinued Lutein (Lutein) 20 Mg Tablet, 20 MG PO DAILY, (Reported) Discontinued Reason: No Longer Taking Entered as Reported by: JADA KIMBALL on 09/21/15 1057 Last Action: Discontinued Prednisone (Prednisone) 20 Mg Tab, 40 MG PO DAILY@0700 Discontinued Reason: No Longer Taking Prescribed by: RYANNE DYSON on 03/07/22 1024 Last Action: Discontinued Tramadol HCl (Tramadol HCl) 50 Mg Tablet, 50 MG PO Q4H PRN for PAIN-MODERATE (5- 7) Discontinued Reason: No Longer Taking Prescribed by: Jose Khalil on 06/12/22 1438 Last Action: Discontinued Exam Vital Signs Vital Signs Date Time Temp Pulse Resp B/P (MAP) Pulse Ox O2 Delivery O2 Flow Rate FiO2 12/14/22 12:35 69 12/14/22 12:00 36.6 12/14/22 12:00 18 144/81 (102) 96 Nasal Cannula 2.00 Physical Exam Constitutional exam: Stable. Chest: Bilateral air entry. No wheezing. CVS: Regular rhythm. No murmur. No pedal edema. Labs Laboratory Tests Test 12/13/22 15:18 12/13/22 15:50 12/13/22 20:46 12/13/22 21:21 Range/Units Glucometer 151 H 66 L 108 70-110 MG/DL Blood Gas Puncture Site LEFT RADIAL Blood Gas Patient Temperature 37.0 Arterial Blood pH 7.29 *L 7.37-7.43 Arterial Blood Partial Pressure CO2 66 H 35-45 MMHG Arterial Blood Partial Pressure O2 66 L 79-93 MMHG Arterial Blood HCO3 31 H 23-27 MMOL/L Arterial Blood Total CO2 32.8 H 21.0-31.0 MMOL/L Arterial Blood Oxygen Saturation 91 L 94-100 % Arterial Blood Base Excess 4.7 H -2.5-2.5 MMOL/L Ino Test YES-POS Blood Gas Ventilator Setting NO Blood Gas Inspired Oxygen 2L Test 12/14/22 04:13 12/14/22 05:53 12/14/22 11:00 Range/Units White Blood Count 7.5 4.3-11.0 10^3/uL Red Blood Count 3.36 L 4.30-5.52 10^6/uL Hemoglobin 9.8 L 13.3-17.7 g/dL Hematocrit 32 L 40-54 % Mean Corpuscular Volume 94 80-99 fL Mean Corpuscular Hemoglobin 29 25-34 pg Mean Corpuscular Hemoglobin Concent 31 L 32-36 g/dL Red Cell Distribution Width 14.2 10.0-14.5 % Platelet Count 173 130-400 10^3/uL Mean Platelet Volume 10.2 9.0-12.2 fL Immature Granulocyte % (Auto) 0 % Neutrophils (%) (Auto) 64 42-75 % Lymphocytes (%) (Auto) 22 12-44 % Monocytes (%) (Auto) 10 0-12 % Eosinophils (%) (Auto) 4 0-10 % Basophils (%) (Auto) 0 0-10 % Neutrophils # (Auto) 4.8 1.8-7.8 10^3/uL Lymphocytes # (Auto) 1.7 1.0-4.0 10^3/uL Monocytes # (Auto) 0.7 0.0-1.0 10^3/uL Eosinophils # (Auto) 0.3 0.0-0.3 10^3/uL Basophils # (Auto) 0.0 0.0-0.1 10^3/uL Immature Granulocyte # (Auto) 0.0 0.0-0.1 10^3/uL Sodium Level 140 135-145 MMOL/L Potassium Level 5.0 3.6-5.0 MMOL/L Chloride Level 109 H 98-107 MMOL/L Carbon Dioxide Level 25 21-32 MMOL/L Anion Gap 6 5-14 MMOL/L Blood Urea Nitrogen 27 H 7-18 MG/DL Creatinine 1.16 0.60-1.30 MG/DL Estimat Glomerular Filtration Rate 69 BUN/Creatinine Ratio 23 Glucose Level 43 *L 70-105 MG/DL Calcium Level 8.0 L 8.5-10.1 MG/DL Corrected Calcium 8.8 8.5-10.1 MG/DL Magnesium Level 2.0 1.6-2.4 MG/DL Total Bilirubin 0.3 0.1-1.0 MG/DL Aspartate Amino Transf (AST/SGOT) 17 5-34 U/L Alanine Aminotransferase (ALT/SGPT) 14 0-55 U/L Alkaline Phosphatase 41 40-136 U/L Total Protein 5.4 L 6.4-8.2 GM/DL Albumin 3.0 L 3.2-4.5 GM/DL Glucometer 128 H 157 H 70-110 MG/DL ECG Impression ECG Initial ECG Rhythm: Normal Sinus Comment Sinus rhythm with right bundle branch block. QRS duration of 120 ms. Left axis deviation. A/P-Cardiology Assessment/Admission Diagnosis Pneumonia Sinus Bradycardia syncope history of Renal carcinoma with mets to lung Plan Brief episode of bradycardia. however continues to be in 60-70s. EKG shows RBBB with QRS 120ms (evidence of mild distal conduction disease). Continue to monitor on telemetry. We will avoid any AV jenelle blocking agents. Syncope was situational with patient complaining of severe neck pain and spasm and during certain maneuvers the patient claims that he passed out. Mikel PENG MD Dec 13, 2022 18:41
[2022-12-13] MEDS: COLESTIPOL 1 GM (COLESTID) TAB PO SCH (20:00)
[2022-12-13] MEDS: ENOXAPARIN 40 MG/0.4 ML (LOVENOX) SYR SQ SCH (20:55)
[2022-12-13] MEDS ORDERED: LACTATED RINGERS 1,000 ML IV ONE (21:09)
[2022-12-13] MEDS: GABAPENTIN 300 MG (NEURONTIN) CAP PO SCH (22:44)
[2022-12-14] MEDS: RT-ALBUTEROL/IPRATROPIUM 3 ML (DUONEB) VIAL IH SCH ×4 (01:01→21:27)
[2022-12-14 04:28] LABS: BASOPHILS % (AUTO) 0 % (0-10); EOSINOPHILS # (AUTO) 0.3 10^3/uL (0.0-0.3); EOSINOPHILS % (AUTO) 4 % (0-10); HEMATOCRIT 32 % (40-54); HEMOGLOBIN 9.8 g/dL (13.3-17.7); LYMPHOCYTES # (AUTO) 1.7 10^3/uL (1.0-4.0); LYMPHOCYTES % (AUTO) 22 % (12-44); MEAN CORPUSCULAR HEMOGLOBIN 29 pg (25-34); MEAN CORPUSCULAR HGB CONC 31 g/dL (32-36); MEAN CORPUSCULAR VOLUME 94 fL (80-99); MEAN PLATELET VOLUME 10.2 fL (9.0-12.2); MONOCYTES # (AUTO) 0.7 10^3/uL (0.0-1.0); MONOCYTES % (AUTO) 10 % (0-12); NEUTROPHILS # (AUTO) 4.8 10^3/uL (1.8-7.8); NEUTROPHILS % (AUTO) 64 % (42-75); PLATELET COUNT 173 10^3/uL (130-400); WHITE BLOOD COUNT 7.5 10^3/uL (4.3-11.0)
[2022-12-14] MEDS ORDERED: RT-ALBUTEROL/IPRATROPIUM 3 ML (DUONEB) VIAL ONE (04:37)
[2022-12-14] MEDS ORDERED: RT-ALBUTEROL/IPRATROPIUM 3 ML (DUONEB) VIAL INH PRN (04:45)
[2022-12-14 04:52] LABS: TOTAL PROTEIN 5.4 GM/DL (6.4-8.2)
[2022-12-14 04:54] LABS: BILIRUBIN,TOTAL 0.3 MG/DL (0.1-1.0)
[2022-12-14 04:56] LABS: CREATININE SERUM 1.16 MG/DL (0.60-1.30)
[2022-12-14] MEDS ORDERED: NS IV 500 ML 500 ML IV PRN (05:30)
[2022-12-14] MEDS: POTASSIUM CL 10MEQ/50ML IVPB 50 ML IV SCH (05:45)
[2022-12-14] MEDS: KCL 20 MEQ TAB (K-DUR) PO SCH (05:45)
[2022-12-14] MEDS: inSUlin ASPART (NovoLOG) 1 UNIT/0.01 ML (CHARGE PER UNIT) SC SCH ×4 (05:46→20:51)
[2022-12-14] MEDS: MAGNESIUM 1 GM/100 ML IVPB 100 ML IV SCH (05:59)
[2022-12-14] MEDS: ASCORBIC ACID (VIT C) 500 MG TABLET PO SCH (07:56)
[2022-12-14] MEDS: GABAPENTIN 300 MG (NEURONTIN) CAP PO SCH ×3 (07:56→20:51)
[2022-12-14] MEDS: CEFEPIME INJECTION 1,000 MG in NS (IVPB) 50 ML IV SCH ×3 (07:56→19:42)
[2022-12-14] MEDS: COLESTIPOL 1 GM (COLESTID) TAB PO SCH ×3 (08:31→20:51)
[2022-12-14] MEDS ORDERED: AZITHROMYCIN INJECTION 250 MG in NS (IVPB) 250 ML IV SCH (09:00)
--- NOTE | 2022-12-14 11:12 | Tele-ICU Progress Note ---
Subjective Date Seen by a Provider: Dec 14, 2022 Time Seen by a Provider: 11:11 Subjective/Events-last exam (Tele-ICU Physician , Progress Note ) Service provided via interactive audio and video telecommunications E-CARE system to a patient admitted to ICU bed in [facility]. Patient is seen today due to persistent need of ICU care Available chart/ vitals / labs / Images reviewed Video assessment done using teleICU camera, rest of exam as per RN Discussed with RN Events overnight : Afebrile hemodynamically stable Respiratory - 2 l I/O = pos 3 L Drips: ns 100 A/P PNA , right , supected - abx started - will add atypical coverage ( given bradycardia consider mycoplasma , and legionella ) check for Ab/AG MARÍA / CKD (s/p nephrectomy after renal CA 2016 ) - recovered , stop IVF Neck pain - US carodids - no vascular stenosis. 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 Discussed with RN to reach out if any questions or concerns A total of 20 minutes of critical care time was devoted to this patient today, required to treat and/or prevent further deterioration of critical care condition ( as above ) . I am remotely monitoring this patient from another state. I am unable to do the bedside exam, and history/physical and pertinent information is taken from other notes in the computer and bedside staff. . Sepsis Event Evaluation Height, Weight, BMI Height: 6'4.00" Weight: 203lbs. 5.0oz. 92.635131qc; 21.26 BMI Method:Stated Focused Exam Lactate Level 12/13/22 07:02: Lactic Acid Level 0.68 Exam Exam Patient acknowledged, consented, and participated in this virtual visit which was conducted using real time audio/video Vital Signs Date Time Temp Pulse Resp B/P (MAP) Pulse Ox O2 Delivery O2 Flow Rate FiO2 12/14/22 11:00 69 19 125/75 (92) 93 Nasal Cannula 2.00 12/14/22 10:00 52 18 140/69 (92) 92 Nasal Cannula 2.00 12/14/22 09:00 54 20 148/68 (94) 91 Nasal Cannula 2.00 12/14/22 08:00 49 19 119/61 (80) 93 Nasal Cannula 2.00 12/14/22 08:00 95 Nasal Cannula 2.00 12/14/22 07:54 36.5 12/14/22 07:30 97 Nasal Cannula 2.00 12/14/22 07:00 57 20 114/63 (80) 93 Nasal Cannula 2.00 12/14/22 07:00 54 12/14/22 06:00 66 22 144/57 (86) 93 Nasal Cannula 2.00 12/14/22 05:00 56 21 138/63 (88) 91 Nasal Cannula 2.00 12/14/22 04:43 95 Nasal Cannula 2.00 12/14/22 04:00 36.8 12/14/22 04:00 52 16 110/56 (74) 92 Nasal Cannula 2.00 12/14/22 03:43 95 Nasal Cannula 2.00 12/14/22 03:00 48 16 110/54 (72) 93 Nasal Cannula 2.00 12/14/22 02:00 50 12 100/53 (69) 94 Nasal Cannula 2.00 12/14/22 01:00 52 12/14/22 01:00 53 15 90/47 (61) 95 Nasal Cannula 2.00 12/14/22 00:00 62 16 96/53 (67) 96 Nasal Cannula 2.00 12/13/22 23:52 95 Nasal Cannula 2.00 12/13/22 23:00 59 22 100/56 (71) 95 Nasal Cannula 2.00 12/13/22 22:00 66 25 134/61 (85) 94 Nasal Cannula 2.00 12/13/22 21:00 64 17 154/64 (94) 96 Nasal Cannula 2.00 12/13/22 20:00 69 17 136/69 (91) 96 Nasal Cannula 2.00 12/13/22 20:00 Nasal Cannula 2.00 12/13/22 20:00 37.1 12/13/22 19:00 63 12/13/22 19:00 57 22 131/63 (85) 94 Nasal Cannula 2.00 12/13/22 18:00 65 16 113/59 (77) 96 Nasal Cannula 2.00 12/13/22 17:00 59 12 128/62 (84) 91 Nasal Cannula 2.00 12/13/22 16:00 Nasal Cannula 2.00 12/13/22 16:00 69 7 119/62 (81) 90 Nasal Cannula 2.00 12/13/22 15:30 36.6 12/13/22 15:00 69 7 96/48 (64) 94 Nasal Cannula 5.00 12/13/22 14:00 69 7 96/48 (64) 94 Nasal Cannula 5.00 12/13/22 13:00 55 7 99/46 (63) 92 Nasal Cannula 4.00 12/13/22 12:00 Nasal Cannula 2.00 12/13/22 12:00 35.8 57 19 83/50 (61) 92 Nasal Cannula 4.00 12/13/22 11:52 61 12/13/22 11:51 35.8 49 9 120/61 (80) 99 Nasal Cannula 2.00 12/13/22 11:30 36.6 72 18 111/53 99 Nasal Cannula 2.00 I & O 12/14/22 07:00 Intake Total 5208 ml Output Total 1600 ml Balance 3608 ml Height & Weight Height: 6'4.00" Weight: 203lbs. 5.0oz. 92.245793tu; 21.26 BMI Method:Stated General Appearance: No Apparent Distress, Chronically ill, Thin HEENT: Other (ear plug in place on the left) Neck: Other (tenderness to the left paraspinous musculature and left lateral neck; no appreciable swelling) Respiratory: Lungs Clear (anteriorly), No Accessory Muscle Use, No Respiratory Distress, Decreased Breath Sounds (posteriorly), Other (room air sats 89-93%) Cardiovascular: Regular Rate, Rhythm, Normal Peripheral Pulses Capillary Refill: Less Than 3 Seconds Extremity: Normal Inspection, Normal Range of Motion, Non Tender, No Calf Tenderness, Other (LUE distal NVI) Neurologic/Psychiatric: Alert, Oriented x3, No Motor/Sensory Deficits, Normal Mood/Affect, 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
--- NOTE | 2022-12-14 12:55 | Cardiology Progress Note ---
Cardiology SOAP Progress Note Subjective: No significant cardiac complaints. Objective: I&O/Vital Signs 12/14/22 12/14/22 12/14/22 12/14/22 01:00 01:00 02:00 03:00 Pulse 53 52 50 48 Resp 15 12 16 B/P (MAP) 90/47 (61) 100/53 (69) 110/54 (72) Pulse Ox 95 94 93 O2 Delivery Nasal Cannula Nasal Cannula Nasal Cannula O2 Flow Rate 2.00 2.00 2.00 12/14/22 12/14/22 12/14/22 12/14/22 03:43 04:00 04:00 04:43 Temp 36.8 Pulse 52 Resp 16 B/P (MAP) 110/56 (74) Pulse Ox 95 92 95 O2 Delivery Nasal Cannula Nasal Cannula Nasal Cannula O2 Flow Rate 2.00 2.00 2.00 12/14/22 12/14/22 12/14/22 12/14/22 05:00 06:00 07:00 07:00 Pulse 56 66 54 57 Resp 21 22 20 B/P (MAP) 138/63 (88) 144/57 (86) 114/63 (80) Pulse Ox 91 93 93 O2 Delivery Nasal Cannula Nasal Cannula Nasal Cannula O2 Flow Rate 2.00 2.00 2.00 12/14/22 12/14/22 12/14/22 12/14/22 07:30 07:54 08:00 08:00 Temp 36.5 Pulse 49 Resp 19 B/P (MAP) 119/61 (80) Pulse Ox 97 95 93 O2 Delivery Nasal Cannula Nasal Cannula Nasal Cannula O2 Flow Rate 2.00 2.00 2.00 12/14/22 12/14/22 12/14/22 12/14/22 09:00 10:00 11:00 12:00 Pulse 54 52 69 Resp 20 18 19 B/P (MAP) 148/68 (94) 140/69 (92) 125/75 (92) Pulse Ox 91 92 93 97 O2 Delivery Nasal Cannula Nasal Cannula Nasal Cannula Nasal Cannula O2 Flow Rate 2.00 2.00 2.00 2.00 12/14/22 12/14/22 12/14/22 12:00 12:00 12:35 Temp 36.6 Pulse 82 69 Resp 18 B/P (MAP) 144/81 (102) Pulse Ox 96 O2 Delivery Nasal Cannula O2 Flow Rate 2.00 12/13/22 23:59 Intake Total 1858 ml Output Total 1050 ml Balance 808 ml Weight (Pounds): 203 Weight (Ounces): 5.0 Weight (Calculated Kilograms): 92.548220 Constitutional: AAO x 3 Respiratory: No accessory muscle use, No respiratory distress; chest expansion is symmetric, lungs clear to auscultation Cardiovascular: regular rate-rhythm, bradycardia; No diastolic murmur, No systolic murmur Gastrointestional: soft Neurologic/Psychiatric: alert, normal mood/affect, oriented x 3 Skin: normal color Results/Procedures: Labs Laboratory Tests 12/13/22 15:18: Glucometer 151H 12/13/22 15:50: Blood Gas Puncture Site LEFT RADIAL, Blood Gas Patient Temperature 37.0, Arterial Blood pH 7.29*L, Arterial Blood Partial Pressure CO2 66H, Arterial Blood Partial Pressure O2 66L, Arterial Blood HCO3 31H, Arterial Blood Total CO2 32.8H, Arterial Blood Oxygen Saturation 91L, Arterial Blood Base Excess 4.7H, Ino Test YES-POS, Blood Gas Ventilator Setting NO, Blood Gas Inspired Oxygen 2L 12/13/22 20:46: Glucometer 66L 12/13/22 21:21: Glucometer 108 12/14/22 04:13: White Blood Count 7.5, Red Blood Count 3.36L, Hemoglobin 9.8L, Hematocrit 32L, Mean Corpuscular Volume 94, Mean Corpuscular Hemoglobin 29, Mean Corpuscular Hemoglobin Concent 31L, Red Cell Distribution Width 14.2, Platelet Count 173, Mean Platelet Volume 10.2, Immature Granulocyte % (Auto) 0, Neutrophils (%) (Auto) 64, Lymphocytes (%) (Auto) 22, Monocytes (%) (Auto) 10, Eosinophils (%) (Auto) 4, Basophils (%) (Auto) 0, Neutrophils # (Auto) 4.8, Lymphocytes # (Auto) 1.7, Monocytes # (Auto) 0.7, Eosinophils # (Auto) 0.3, Basophils # (Auto) 0.0, Immature Granulocyte # (Auto) 0.0, Sodium Level 140, Potassium Level 5.0, Ch [place] Level 109H, Carbon Dioxide Level 25, Anion Gap 6, Blood Urea Nitrogen 27H , Creatinine 1.16, Estimat Glomerular Filtration Rate 69, BUN/Creatinine Ratio 23, Glucose Level 43*L, Calcium Level 8.0L, Corrected Calcium 8.8, Magnesium Level 2.0, Total Bilirubin 0.3, Aspartate Amino Transf (AST/SGOT) 17, Alanine Aminotransferase (ALT/SGPT) 14, Alkaline Phosphatase 41, Total Protein 5.4L, Albumin 3.0L 12/14/22 05:53: Glucometer 128H 12/14/22 11:00: Glucometer 157H Microbiology 12/13/22 MRSA Screen - Final, Complete MRSA not isolated 12/13/22 Blood Culture - Preliminary, Resulted No growth A/P: Assessment/Dx: Pneumonia Sinus Bradycardia syncope history of Renal carcinoma with mets to lung Plan: No further bradycardia. Lowest heart rate that I have seen on telemetry is in the 50s. No further symptoms. We will request an echocardiogram. EKG shows RBBB with QRS 120ms (evidence of mild distal conduction disease). Continue to monitor on telemetry. We will avoid any AV jenelle blocking agents. Syncope was situational with patient complaining of severe neck pain and spasm and during certain maneuvers the patient claims that he passed out. Focused Exam Lactate Level 12/13/22 07:02: Lactic Acid Level 0.68 Clinical Quality Measures Smoking Cessation Counseling: Counseling-Symptomatic: 3-10 Minutes Discussed Options Including: Nicotine Patch Mikel PENG MD Dec 14, 2022 12:55
[2022-12-14] MEDS: FLUTICASONE/VILANTEROL 200 MCG 14'S (BREO) IH SCH (14:53)
--- NOTE | 2022-12-14 16:04 | Progress Note - Hospitalist ---
Subjective HPI/CC On Admission Date Seen by Provider: Dec 14, 2022 67-year-old male with a past medical history of metastatic renal cancer status post nephrectomy, COPD, chronic kidney disease, hypertension, diabetes who presented to the emergency department due to syncope. He reports that he has had neck pain this morning and he was at work and turned his head and got worsening of his neck pain and then passed out. He decided to come in f or evaluation and he was found to be slightly high hypotensive and hypoxic and imaging revealed a right-sided pneumonia. Subjective/Events-last exam Pt reports feeling better today. No complaints. Neck pain improved. Discussed heart rate dropping into the 30s yesterday and cardiology evaluation. Focused Exam Lactate Level 12/13/22 07:02: Lactic Acid Level 0.68 Objective Exam Vital Signs Vital Signs Date Time Temp Pulse Resp B/P (MAP) Pulse Ox O2 Delivery O2 Flow Rate FiO2 12/14/22 19:41 37.4 Nasal Cannula 1.00 12/14/22 18:00 79 15 150/77 (101) 91 Capillary Refill : Less Than 3 Seconds General Appearance: No Apparent Distress Respiratory: Lungs Clear, No Respiratory Distress Cardiovascular: No Murmur, Bradycardia Gastrointestinal: Normal Bowel Sounds, Soft Neurologic/Psychiatric: Alert, Oriented x3 Results/Procedures Lab Laboratory Tests 12/14/22 04:13 Patient resulted labs reviewed. 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 DC IVF UOP adequate yesterday Syncope Bradycardia Carotid usg with mild disease Cardiology consulted, appreciate recs Still in the 40s or 50s Monitor on telemetry HTN BP improved Hold home meds Recently doubled his lisinopril so likely contributing IDDMII Continue SSI h/o metastatic renal cell carcinoma lung mets Follows with Dr Mcneil DVT ppx: Lovenox Diagnosis/Problems Diagnosis/Problems (1) Neck pain, acute Status: Acute (2) Community acquired pneumonia Status: Acute Qualifiers: Laterality: right Lung location: lower lobe of lung Qualified Codes: J18.9 - Pneumonia, unspecified organism (3) MARÍA (acute kidney injury) Status: Acute (4) Acute respiratory failure with hypoxia and hypercapnia Status: Acute (5) PNA (pneumonia) Onset Date: ~ 07/08/2021 Status: Acute (6) 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 (7) Insulin dependent diabetes mellitus Status: Chronic (8) COPD (chronic obstructive pulmonary disease) Status: Acute (9) Essential (primary) hypertension Status: Chronic Clinical Quality Measures Smoking Cessation Counseling: Counseling-Symptomatic: 3-10 Minutes Discussed Options Including: Nicotine Patch RYANNE DYSON MD Dec 14, 2022 16:04
[2022-12-14] MEDS: ENOXAPARIN 40 MG/0.4 ML (LOVENOX) SYR SQ SCH (20:52)
[2022-12-15] MEDS: CEFEPIME INJECTION 1,000 MG in NS (IVPB) 50 ML IV SCH ×4 (01:09→20:30)
[2022-12-15 05:13] LABS: BASOPHILS % (AUTO) 0 % (0-10); EOSINOPHILS # (AUTO) 0.6 10^3/uL (0.0-0.3); EOSINOPHILS % (AUTO) 6 % (0-10); HEMATOCRIT 34 % (40-54); HEMOGLOBIN 10.5 g/dL (13.3-17.7); LYMPHOCYTES # (AUTO) 1.4 10^3/uL (1.0-4.0); LYMPHOCYTES % (AUTO) 16 % (12-44); MEAN CORPUSCULAR HEMOGLOBIN 29 pg (25-34); MEAN CORPUSCULAR HGB CONC 31 g/dL (32-36); MEAN CORPUSCULAR VOLUME 94 fL (80-99); MEAN PLATELET VOLUME 10.3 fL (9.0-12.2); MONOCYTES # (AUTO) 0.9 10^3/uL (0.0-1.0); MONOCYTES % (AUTO) 10 % (0-12); NEUTROPHILS # (AUTO) 6.1 10^3/uL (1.8-7.8); NEUTROPHILS % (AUTO) 68 % (42-75); PLATELET COUNT 199 10^3/uL (130-400)
[2022-12-15 05:28] LABS: POTASSIUM 5.5 MMOL/L (3.6-5.0)
[2022-12-15 05:29] LABS: CALCIUM 8.8 MG/DL (8.5-10.1)
[2022-12-15 05:30] LABS: TOTAL PROTEIN 5.6 GM/DL (6.4-8.2)
[2022-12-15 05:32] LABS: BILIRUBIN,TOTAL 0.3 MG/DL (0.1-1.0)
[2022-12-15 05:36] LABS: MAGNESIUM 1.8 MG/DL (1.6-2.4)
[2022-12-15] MEDS: KCL 20 MEQ TAB (K-DUR) PO SCH (05:40)
[2022-12-15] MEDS: inSUlin ASPART (NovoLOG) 1 UNIT/0.01 ML (CHARGE PER UNIT) SC SCH ×4 (05:40→21:59)
[2022-12-15] MEDS: MAGNESIUM 1 GM/100 ML IVPB 100 ML IV SCH ×2 (05:40→06:05)
[2022-12-15] MEDS: POTASSIUM CL 10MEQ/50ML IVPB 50 ML IV SCH (05:40)
[2022-12-15] MEDS: RT-ALBUTEROL/IPRATROPIUM 3 ML (DUONEB) VIAL IH SCH ×3 (07:06→19:41)
[2022-12-15] MEDS: FLUTICASONE/VILANTEROL 200 MCG 14'S (BREO) IH SCH (07:07)
[2022-12-15] MEDS: AZITHROMYCIN 250 MG TAB (ZITHROMAX) PO SCH (08:32)
[2022-12-15] MEDS: GABAPENTIN 300 MG (NEURONTIN) CAP PO SCH ×3 (08:32→20:31)
[2022-12-15] MEDS: ASCORBIC ACID (VIT C) 500 MG TABLET PO SCH (08:32)
[2022-12-15] MEDS: COLESTIPOL 1 GM (COLESTID) TAB PO SCH ×3 (08:32→20:30)
--- NOTE | 2022-12-15 08:40 | Tele-ICU Progress Note ---
Progress Note video rounds completed 67 y/o male admitted with PNA and bradycardia (Tele-ICU Physician , Progress Note ) Service provided via interactive audio and video telecommunications E-CARE system to a patient admitted to ICU bed in [facility]. 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 I am unable to do the bedside exam, and history/physical and pertinent information is taken from other notes in the computer and bedside staff. . Sepsis Event Evaluation Height, Weight, BMI Height: 6'4.00" Weight: 203lbs. 5.0oz. 92.036779ao; 21.26 BMI Method:Stated Focused Exam Lactate Level 12/13/22 07:02: Lactic Acid Level 0.68 Exam Exam Patient acknowledged, consented, and participated in this virtual visit which was conducted using real time audio/video Vital Signs Date Time Temp Pulse Resp B/P (MAP) Pulse Ox O2 Delivery O2 Flow Rate FiO2 12/14/22 11:00 69 19 125/75 (92) 93 Nasal Cannula 2.00 12/14/22 10:00 52 18 140/69 (92) 92 Nasal Cannula 2.00 12/14/22 09:00 54 20 148/68 (94) 91 Nasal Cannula 2.00 12/14/22 08:00 49 19 119/61 (80) 93 Nasal Cannula 2.00 12/14/22 08:00 95 Nasal Cannula 2.00 12/14/22 07:54 36.5 12/14/22 07:30 97 Nasal Cannula 2.00 12/14/22 07:00 57 20 114/63 (80) 93 Nasal Cannula 2.00 12/14/22 07:00 54 12/14/22 06:00 66 22 144/57 (86) 93 Nasal Cannula 2.00 12/14/22 05:00 56 21 138/63 (88) 91 Nasal Cannula 2.00 12/14/22 04:43 95 Nasal Cannula 2.00 12/14/22 04:00 36.8 12/14/22 04:00 52 16 110/56 (74) 92 Nasal Cannula 2.00 12/14/22 03:43 95 Nasal Cannula 2.00 12/14/22 03:00 48 16 110/54 (72) 93 Nasal Cannula 2.00 12/14/22 02:00 50 12 100/53 (69) 94 Nasal Cannula 2.00 12/14/22 01:00 52 12/14/22 01:00 53 15 90/47 (61) 95 Nasal Cannula 2.00 12/14/22 00:00 62 16 96/53 (67) 96 Nasal Cannula 2.00 12/13/22 23:52 95 Nasal Cannula 2.00 12/13/22 23:00 59 22 100/56 (71) 95 Nasal Cannula 2.00 12/13/22 22:00 66 25 134/61 (85) 94 Nasal Cannula 2.00 12/13/22 21:00 64 17 154/64 (94) 96 Nasal Cannula 2.00 12/13/22 20:00 69 17 136/69 (91) 96 Nasal Cannula 2.00 12/13/22 20:00 Nasal Cannula 2.00 12/13/22 20:00 37.1 12/13/22 19:00 63 12/13/22 19:00 57 22 131/63 (85) 94 Nasal Cannula 2.00 12/13/22 18:00 65 16 113/59 (77) 96 Nasal Cannula 2.00 12/13/22 17:00 59 12 128/62 (84) 91 Nasal Cannula 2.00 12/13/22 16:00 Nasal Cannula 2.00 12/13/22 16:00 69 7 119/62 (81) 90 Nasal Cannula 2.00 12/13/22 15:30 36.6 12/13/22 15:00 69 7 96/48 (64) 94 Nasal Cannula 5.00 12/13/22 14:00 69 7 96/48 (64) 94 Nasal Cannula 5.00 12/13/22 13:00 55 7 99/46 (63) 92 Nasal Cannula 4.00 12/13/22 12:00 Nasal Cannula 2.00 12/13/22 12:00 35.8 57 19 83/50 (61) 92 Nasal Cannula 4.00 12/13/22 11:52 61 12/13/22 11:51 35.8 49 9 120/61 (80) 99 Nasal Cannula 2.00 12/13/22 11:30 36.6 72 18 111/53 99 Nasal Cannula 2.00 I & O 12/14/22 07:00 Intake Total 5208 ml Output Total 1600 ml Balance 3608 ml Height & Weight Height: 6'4.00" Weight: 203lbs. 5.0oz. 92.113154to; 21.26 BMI Method:Stated General Appearance: No Apparent Distress, Chronically ill, Thin HEENT: Other (ear plug in place on the left) Neck: Other (tenderness to the left paraspinous musculature and left lateral neck; no appreciable swelling) Respiratory: Lungs Clear (anteriorly), No Accessory Muscle Use, No Respiratory Distress, Decreased Breath Sounds (posteriorly), Other (room air sats 89-93%) Cardiovascular: Regular Rate, Rhythm, Normal Peripheral Pulses Capillary Refill: Less Than 3 Seconds Extremity: Normal Inspection, Normal Range of Motion, Non Tender, No Calf Tenderness, Other (LUE distal NVI) Neurologic/Psychiatric: Alert, Oriented x3, No Motor/Sensory Deficits, Normal Mood/Affect, rn progressive care unit II-XII Norm as Tested Skin: Normal Color, Warm/Dry Results Lab Laboratory Tests 12/13/22 07:02 12/14/22 04:13 Assessment/Plan Assessment/Plan Pneumonia, still on cefipime Cardiology following Time spent in review 15 minutes Focused Exam Lactate Level 12/13/22 07:02: Lactic Acid Level 0.68 Height, Weight, BMI Height: 6'4.00" Weight: 203lbs. 5.0oz. 92.514283so; 20.83 BMI Method:Stated Labs Laboratory Tests 12/15/22 04:45 Results Results/Procedures Lab Laboratory Tests 12/14/22 04:13 12/15/22 04:45 Results Labs Labs Laboratory Tests 12/14/22 11:00: Glucometer 157H 12/14/22 17:34: Glucometer 96 12/14/22 20:46: Glucometer 230H 12/15/22 04:45: White Blood Count 9.0, Red Blood Count 3.59L, Hemoglobin 10.5L, Hematocrit 34L, Mean Corpuscular Volume 94, Mean Corpuscular Hemoglobin 29, Mean Corpuscular Hemoglobin Concent 31L, Red Cell Distribution Width 13.8, Platelet Count 199, Mean Platelet Volume 10.3, Immature Granulocyte % (Auto) 0, Neutrophils (%) (Auto) 68, Lymphocytes (%) (Auto) 16, Monocytes (%) (Auto) 10, Eosinophils (%) (Auto) 6, Basophils (%) (Auto) 0, Neutrophils # (Auto) 6.1, Lymphocytes # (Auto) 1.4, Monocytes # (Auto) 0.9, Eosinophils # (Auto) 0.6H, Basophils # (Auto) 0.0, Immature Granulocyte # (Auto) 0.0, Sodium Level 139, Potassium Level 5.5H, Chloride Level 106, Carbon Dioxide Level 27, Anion Gap 6, Blood Urea Nitrogen 25H, Creatinine 1.00, Estimat Glomerular Filtration Rate 82, BUN/Creatinine Ratio 25, Glucose Level 108H, Calcium Level 8.8, Corrected Calcium 9.6, Phosphorus Level 3.0, Magnesium Level 1.8, Total Bilirubin 0.3, Aspartate Amino Transf (AST/SGOT) 16, Alanine Aminotransferase (ALT/SGPT) 15, Alkaline Phosphatase 51, Total Protein 5.6L, Albumin 3.0L Microbiology 12/13/22 MRSA Screen - Final, Complete MRSA not isolated 12/13/22 Blood Culture - Preliminary, Resulted No growth CHARITY CRUZ MD Dec 15, 2022 08:40
[2022-12-15] MEDS ORDERED: ACETAMINOPHEN 500 MG TAB (TYLENOL) PO PRN (09:15)
--- NOTE | 2022-12-15 09:15 | Progress Note - Hospitalist ---
Subjective HPI/CC On Admission Date Seen by Provider: Dec 15, 2022 67-year-old male with a past medical history of metastatic renal cancer status post nephrectomy, COPD, chronic kidney disease, hypertension, diabetes who presented to the emergency department due to syncope. He reports that he has had neck pain this morning and he was at work and turned his head and got worsening of his neck pain and then passed out. He decided to come in f or evaluation and he was found to be slightly high hypotensive and hypoxic and imaging revealed a right-sided pneumonia. Subjective/Events-last exam Pt reports feeling a lot better. Still some neck pain but improved. Discussed improving heart rate and plan to transfer out of ICU. Focused Exam Lactate Level 12/13/22 07:02: Lactic Acid Level 0.68 Objective Exam Vital Signs Vital Signs Date Time Temp Pulse Resp B/P (MAP) Pulse Ox O2 Delivery O2 Flow Rate FiO2 12/15/22 09:00 81 16 145/57 (86) 94 Nasal Cannula 3.00 12/15/22 07:35 36.9 Capillary Refill : Less Than 3 Seconds General Appearance: No Apparent Distress, Thin Respiratory: Lungs Clear, No Accessory Muscle Use, Other (on3lpm) Cardiovascular: Regular Rate, Rhythm, No Murmur Gastrointestinal: Normal Bowel Sounds, Soft Neurologic/Psychiatric: Alert, Oriented x3 Results/Procedures Lab Laboratory Tests 12/15/22 04:45 Patient resulted labs reviewed. 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 Syncope Bradycardia Carotid usg with mild disease Cardiology consulted, appreciate recs HR improved today Monitor on telemetry HTN BP improved Resume home Lisinopril at 20mg dose IDDMII Continue SSI BS was 43 yesterday AM but fasting better today, trend h/o metastatic renal cell carcinoma lung mets Follows with Dr Mcneil DVT ppx: Lovenox Diagnosis/Problems Diagnosis/Problems (1) Neck pain, acute Status: Acute (2) Community acquired pneumonia Status: Acute Qualifiers: Laterality: right Lung location: lower lobe of lung Qualified Codes: J18.9 - Pneumonia, unspecified organism (3) MARÍA (acute kidney injury) Status: Acute (4) Acute respiratory failure with hypoxia and hypercapnia Status: Acute (5) PNA (pneumonia) Onset Date: ~ 07/08/2021 Status: Acute (6) 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 (7) Insulin dependent diabetes mellitus Status: Chronic (8) COPD (chronic obstructive pulmonary disease) Status: Acute (9) Essential (primary) hypertension Status: Chronic Clinical Quality Measures Smoking Cessation Counseling: Counseling-Symptomatic: 3-10 Minutes Discussed Options Including: Nicotine Patch RYANNE DYSON MD Dec 15, 2022 09:15
--- NOTE | 2022-12-15 09:16 | Physical Therapy Evaluation ---
PT Evaluation-General Medical Diagnosis Admission Date Dec 13, 2022 at 11:27 Medical Diagnosis: pneumonia Onset Date: Dec 13, 2022 Therapy Diagnosis Therapy Diagnosis: debility Height/Weight Height (Feet): 6 Height (Inches): 4.00 Weight (Pounds): 203 Weight (Ounces): 5.0 Precautions Precautions/Isolations: Fall Prevention, Standard Precautions Weight Bear Status Right Lower Extremity: Right Weight Bearing/Tolerated Left Lower Extremity: Left Weight Bearing/Tolerated Referral Physician: Quiana Reason for Referral: Evaluation/Treatment Medical History Pertinent Medical History: Arthritis, DM, HTN, Smoking Additional Medical History lung cancer Current History ambulated into the ER due to neck pain Reviewed History: Yes Social History Home: Single Level Entry Into Home: Stairs With Railing PT Steps Into Home: 4 Prior Prior Level of Function SCALE: Activities may be completed with or without assistive devices. 3-Zmikogfltm-fynzhub completes the activity by him/herself with no assistance from a helper. 5-Set-up or Clean-up Assistance-helper sets up or cleans up; patient completes activity. [place] assists only prior to or following the activity. 4-Supervision or Touching Assistance-helper provides verbal cues and/or touching/steadying and/or contact guard assistance as patient completes activity. Assistance may be provided throughout the activity or intermittently. 3-Partial/Moderate Assistance-helper does LESS THAN HALF the effort. [place] lifts, holds or supports trunk or limbs, but provides less than half the effort. 2-Substantial/Maximal Assistance-helper does MORE THAN HALF the effort. [place] lifts or holds trunk or limbs and provides more than half the effort. 6-Mpazlfgam-dfyarb does ALL the effort. Patient does none of the effort to complete the activity. Or, the assistance of 2 or more helpers is required for the patient to complete the activity. If activity was not attempted, code reason: 7-Patient Refused. 9-Not Applicable-not attempted and the patient did not perform the activity before the current illness, exacerbation or injury. 10-Not Attempted due to Environmental Limitations-(lack of equipment, weather restraints, etc.). 88-Not Attempted due to Medical Conditions or Safety Concerns. Bed Mobility: 6 Transfers (B,C,W/C): 6 Gait: 6 Stairs: 6 Indoor Mobility (Ambulation): Independent Stairs: Independent Prior Devices Use: None PT Evaluation-Current Subjective Patient agrees to PT. Objective Patient Orientation: Normal For Age Attachments: Oxygen ROM/Strength ROM Lower Extremities bilateral LE WFL Strength Lower Extremities 4/5 grossly bilateral LE all planes Integumentary/Posture Bowel Incontinence: No Bladder Incontinence: No Posture WFL Neuromuscular (Tone, Coordination, Reflexes) grossly intact Sensory Vision: Wears Glasses Hearing: Functional Transfers Sit to Lying (QC): 6 Lying to Sitting/Side of Bed(Q: 6 Sit to Stand (QC): 6 Gait Mode of Locomotion: Walk Anticipated Mode of Locomotion: Walk Walk 10 feet (QC): 6 Walk 50 ft with 2 Turns(QC): 6 Distance: 50' in room Gait Assistive Device: None Balance Sitting Static: Normal Sitting Dynamic: Normal Standing Static: Normal Standing Dynamic: Normal Assessment/Needs Patient is currently at [facility] with all gross motor skills safely and does not require skilled PT intervention at this time. Rehab Potential: Fair PT Plan Treatment/Plan Treatment Plan: Discontinue PT Treatment Duration: Dec 15, 2022 Frequency: 1 time per week Estimated Hrs Per Day: .25 hour per day Patient and/or Family Agrees t: Yes Time Time In: 902 Time Out: 912 DATE: Dec 15, 2022 Total Billed Treatment Time: 10 Total Billed Treatment 1 visit EVLowC 10 min SUE CONTRERAS PT Dec 15, 2022 09:16
[2022-12-15] MEDS ORDERED: FUROSEMIDE 40 MG/4 ML INJ (LASIX) IVP NR (09:30)
[2022-12-15] MEDS ORDERED: lisINopril 20 MG (PRINIVIL) TABLET PO NR (09:30)
[2022-12-15] MEDS: IBUPROFEN 600 MG (MOTRIN) TAB PO SCH ×3 (10:26→20:32)
--- NOTE | 2022-12-15 14:11 | Cardiology Progress Note ---
Cardiology SOAP Progress Note Objective: I&O/Vital Signs 12/15/22 12/15/22 12/15/22 12/15/22 03:00 04:00 04:00 05:00 Pulse 60 61 62 Resp 20 19 22 B/P (MAP) 123/58 (79) 123/66 (85) 156/68 (97) Pulse Ox 94 96 96 96 O2 Delivery Nasal Cannula Nasal Cannula Nasal Cannula Nasal Cannula O2 Flow Rate 3.00 3.00 3.00 3.00 12/15/22 12/15/22 12/15/22 12/15/22 06:00 07:00 07:00 07:08 Pulse 59 58 64 Resp 13 21 B/P (MAP) 153/65 (94) 136/68 (90) Pulse Ox 93 96 97 O2 Delivery Nasal Cannula Nasal Cannula Nasal Cannula O2 Flow Rate 3.00 3.00 2.00 12/15/22 12/15/22 12/15/22 12/15/22 07:35 08:00 08:00 09:00 Temp 36.9 Pulse 83 81 Resp 25 16 B/P (MAP) 178/86 (116) 145/57 (86) Pulse Ox 91 96 94 O2 Delivery Nasal Cannula Nasal Cannula Nasal Cannula O2 Flow Rate 3.00 3.00 3.00 12/15/22 12/15/22 12:00 13:38 Temp 36.9 Pulse 69 80 Resp 24 16 B/P (MAP) 149/65 (93) 118/62 (80) Pulse Ox 94 93 O2 Delivery Nasal Cannula Nasal Cannula O2 Flow Rate 3.00 3.00 12/15/22 00:00 Intake Total 1150 ml Output Total 2000 ml Balance -850 ml Weight (Pounds): 203 Weight (Ounces): 5.0 Weight (Calculated Kilograms): [id number] Constitutional: AAO x 3 Respiratory: No accessory muscle use, No respiratory distress; chest expansion is symmetric, lungs clear to auscultation Cardiovascular: regular rate-rhythm, bradycardia; No diastolic murmur, No systolic murmur Gastrointestional: soft Neurologic/Psychiatric: alert, normal mood/affect, oriented x 3 Skin: normal color Results/Procedures: Labs Laboratory Tests 12/14/22 17:34: Glucometer 96 12/14/22 20:46: Glucometer 230H 12/15/22 04:45: White Blood Count 9.0, Red Blood Count 3.59L, Hemoglobin 10.5L, Hematocrit 34L, Mean Corpuscular Volume 94, Mean Corpuscular Hemoglobin 29, Mean Corpuscular Hemoglobin Concent 31L, Red Cell Distribution Width 13.8, Platelet Count 199, Mean Platelet Volume 10.3, Immature Granulocyte % (Auto) 0, Neutrophils (%) (Auto) 68, Lymphocytes (%) (Auto) 16, Monocytes (%) (Auto) 10, Eosinophils (%) (Auto) 6, Basophils (%) (Auto) 0, Neutrophils # (Auto) 6.1, Lymphocytes # (Auto) 1.4, Monocytes # (Auto) 0.9, Eosinophils # (Auto) 0.6H, Basophils # (Auto) 0.0, Immature Granulocyte # (Auto) 0.0, Sodium Level 139, Potassium Level 5.5H, Chloride Level 106, Carbon Dioxide Level 27, Anion Gap 6, Blood Urea Nitrogen 25H, Creatinine 1.00, Estimat Glomerular Filtration Rate 82, BUN/Creatinine Ratio 25, Glucose Level 108H, Calcium Level 8.8, Corrected Calcium 9.6, Phosphorus Level 3.0, Magnesium Level 1.8, Total Bilirubin 0.3, Aspartate Amino Transf (AST/SGOT) 16, Alanine Aminotransferase (ALT/SGPT) 15, Alkaline Phosphatase 51, Total Protein 5.6L, Albumin 3.0L 12/15/22 11:16: Glucometer 273H Microbiology 12/13/22 MRSA Screen - Final, Complete MRSA not isolated 12/13/22 Blood Culture - Preliminary, Resulted No growth A/P: Assessment/Dx: Pneumonia Sinus Bradycardia syncope history of Renal carcinoma with mets to lung Plan: No further bradycardia. Lowest heart rate that I have seen on telemetry is in the 50s. No further symptoms. EKG shows RBBB with QRS 120ms (evidence of mild distal conduction disease). Continue to monitor on telemetry. We will avoid any AV jenelle blocking agents. Patient to follow-up with Dr. Chiu as an outpatient for an event monitor for 30 days. Syncope was situational with patient complaining of severe neck pain and spasm and during certain maneuvers the patient claims that he passed out. Thank you for your consultation. Please call me if you have any questions. Kieran Booth MD, FACP, FACC, FSCAI, FHRS, CCDS Interventional Cardiology Cardiac Electrophysiology Vascular Medicine and Endovascular Interventions Focused Exam Lactate Level 12/13/22 07:02: Lactic Acid Level 0.68 Clinical Quality Measures Smoking Cessation Counseling: Counseling-Symptomatic: 3-10 Minutes Discussed Options Including: Nicotine Patch Mikel BOOTH MD Dec 15, 2022 14:11
[2022-12-15 15:22] VITALS: BP 119/55
[2022-12-15 20:04] VITALS: BP 127/59
[2022-12-15] MEDS: ENOXAPARIN 80 MG/0.8 ML (LOVENOX) SYR SC SCH (22:02)
[2022-12-15 23:32] VITALS: BP 122/53
[2022-12-16] MEDS: CEFEPIME INJECTION 1,000 MG in NS (IVPB) 50 ML IV SCH ×4 (02:59→19:51)
[2022-12-16] MEDS: IBUPROFEN 600 MG (MOTRIN) TAB PO SCH ×4 (03:02→19:51)
[2022-12-16 03:51] VITALS: BP 117/58
[2022-12-16 05:52] LABS: BASOPHILS % (AUTO) 0 % (0-10); EOSINOPHILS # (AUTO) 0.7 10^3/uL (0.0-0.3); EOSINOPHILS % (AUTO) 8 % (0-10); HEMATOCRIT 33 % (40-54); HEMOGLOBIN 10.5 g/dL (13.3-17.7); LYMPHOCYTES # (AUTO) 1.2 10^3/uL (1.0-4.0); LYMPHOCYTES % (AUTO) 15 % (12-44); MEAN CORPUSCULAR HEMOGLOBIN 29 pg (25-34); MEAN CORPUSCULAR HGB CONC 32 g/dL (32-36); MEAN CORPUSCULAR VOLUME 93 fL (80-99); MEAN PLATELET VOLUME 10.6 fL (9.0-12.2); MONOCYTES # (AUTO) 0.9 10^3/uL (0.0-1.0); MONOCYTES % (AUTO) 11 % (0-12); NEUTROPHILS # (AUTO) 5.1 10^3/uL (1.8-7.8); NEUTROPHILS % (AUTO) 65 % (42-75); PLATELET COUNT 216 10^3/uL (130-400); WHITE BLOOD COUNT 7.9 10^3/uL (4.3-11.0)
[2022-12-16 06:15] LABS: ALBUMIN 3.1 GM/DL (3.2-4.5)
[2022-12-16 06:18] LABS: TOTAL PROTEIN 5.8 GM/DL (6.4-8.2)
[2022-12-16] MEDS: POTASSIUM CL 10MEQ/50ML IVPB 50 ML IV SCH (06:18)
[2022-12-16] MEDS: KCL 20 MEQ TAB (K-DUR) PO SCH (06:19)
[2022-12-16 06:20] LABS: BILIRUBIN,TOTAL 0.3 MG/DL (0.1-1.0)
[2022-12-16] MEDS: inSUlin ASPART (NovoLOG) 1 UNIT/0.01 ML (CHARGE PER UNIT) SC SCH (06:20)
[2022-12-16 06:22] LABS: CREATININE SERUM 1.02 MG/DL (0.60-1.30)
[2022-12-16] MEDS: MAGNESIUM 1 GM/100 ML IVPB 100 ML IV SCH (06:29)
[2022-12-16 08:49] VITALS: BP 120/62
[2022-12-16] MEDS: ENOXAPARIN 80 MG/0.8 ML (LOVENOX) SYR SC SCH ×2 (09:02→19:52)
[2022-12-16] MEDS: AZITHROMYCIN 250 MG TAB (ZITHROMAX) PO SCH (09:02)
[2022-12-16] MEDS: GABAPENTIN 300 MG (NEURONTIN) CAP PO SCH ×3 (09:03→19:51)
[2022-12-16] MEDS: ASCORBIC ACID (VIT C) 500 MG TABLET PO SCH (09:04)
[2022-12-16] MEDS: lisINopril 20 MG (PRINIVIL) TABLET PO SCH (09:04)
[2022-12-16] MEDS: COLESTIPOL 1 GM (COLESTID) TAB PO SCH ×3 (09:07→19:52)
--- NOTE | 2022-12-16 11:07 | Progress Note - Hospitalist ---
Subjective HPI/CC On Admission Date Seen by Provider: Dec 16, 2022 67-year-old male with a past medical history of metastatic renal cancer status post nephrectomy, COPD, chronic kidney disease, hypertension, diabetes who presented to the emergency department due to syncope. He reports that he has had neck pain this morning and he was at work and turned his head and got worsening of his neck pain and then passed out. He decided to come in f or evaluation and he was found to be slightly high hypotensive and hypoxic and imaging revealed a right-sided pneumonia. Subjective/Events-last exam Pt reports feeling better. Breathing about the same. Denies pain. Still on 3pm. Objective Exam Vital Signs Vital Signs Date Time Temp Pulse Resp B/P (MAP) Pulse Ox O2 Delivery O2 Flow Rate FiO2 12/16/22 08:49 36.8 73 20 120/62 (81) 89 Nasal Cannula 3.00 Capillary Refill : Less Than 3 Seconds General Appearance: No Apparent Distress, Chronically ill, Thin Respiratory: No Accessory Muscle Use, No Respiratory Distress, Wheezing Cardiovascular: Regular Rate, Rhythm, No Murmur Gastrointestinal: Normal Bowel Sounds, Non Tender, Soft Neurologic/Psychiatric: Alert, Oriented x3 Results/Procedures Lab Laboratory Tests 12/16/22 05:06 Patient resulted labs reviewed. Imaging: Reviewed Imaging Report Assessment/Plan Assessment and Plan Assess & Plan/Chief Complaint CAP COPD Acute hypoxia respiratory failure Continue abx Blood cultures with NGTD Mycoplasma + IgG + but negative IgM, awaiting legionella oxygen up a little today, will do small dose of lasix CTA chest ordered to rule out underlying PE given elevated PA pressure on echo Chronic kidney disease s/p nephrectomy [employer] 1.02, resolved Syncope Bradycardia Carotid usg with mild disease Cardiology consulted, appreciate recs- planning to monitor- no intervention now that it's resolved Monitor on telemetry HTN BP improved Continue home Lisinopril but at normal 20mg dose IDDMII DC SSI BS labile, trend and try to avoid lows and tolerate highs for now h/o metastatic renal cell carcinoma lung mets Follows with Dr Mcneil DVT ppx: Lovenox Diagnosis/Problems Diagnosis/Problems (1) Neck pain, acute Status: Acute (2) Community acquired pneumonia Status: Acute Qualifiers: Laterality: right Lung location: lower lobe of lung Qualified Codes: J18.9 - Pneumonia, unspecified organism (3) MARÍA (acute kidney injury) Status: Acute (4) Acute respiratory failure with hypoxia and hypercapnia Status: Acute (5) PNA (pneumonia) Onset Date: ~ 07/08/2021 Status: Acute (6) 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 (7) Insulin dependent diabetes mellitus Status: Chronic (8) COPD (chronic obstructive pulmonary disease) Status: Acute (9) Essential (primary) hypertension Status: Chronic Clinical Quality Measures Smoking Cessation Counseling: Counseling-Symptomatic: 3-10 Minutes Discussed Options Including: Nicotine Patch RYANNE DYSON MD Dec 16, 2022 11:07
[2022-12-16] MEDS ORDERED: CATHETER FLUSH 10 ML SYR IV PRN (12:00)
[2022-12-16] MEDS ORDERED: NS 100 ML (IVPB) BAG IV ONE (12:00)
[2022-12-16] MEDS ORDERED: HOLD METFORMIN - RECEIVED CONTRAST 20 ML VIAL IV SCH (12:00)
[2022-12-16] MEDS ORDERED: IOHEXOL 350 MG/ML 100 ML (OMNIPAQUE 350) VIAL IV ONE (12:00)
--- NOTE | 2022-12-16 12:41 | Diagnostic Imaging Report ---
CT angiogram the chest with contrast. INDICATION: Pneumonia. Shortness of breath. Evaluate for pulmonary embolism. COMPARISON: Chest radiograph 12/13/2022. Chest CT, 07/23/2022. TECHNIQUE: After intravenous administration of contrast, thin section axial CT angiography of the chest was performed and multiple reconstructions were provided including reformats. FINDINGS: There is adequate opacification of the pulmonary artery also some for diagnostic assessment. Is no filling defect within the pulmonary arteries to suggest pulmonary embolism. There are no findings of right ventricular strain. Is atherosclerotic plaquing throughout the aorta without dissection or aneurysm. Is no filling defect evident in the left atrium. Heart size is normal. Lungs demonstrate some small bilateral pleural effusions. There are background features of interstitial lung disease with pulmonary hyperinflation and diaphragmatic air trapping. Paraseptal and centrilobular emphysematous changes are noted. There is some consolidation present at the right lung base most likely reflective of atelectasis. There are pleural calcifications at the right lung base. These are unchanged from prior exam. Rather stable small mediastinal lymph nodes. Is a large paraesophageal hiatal hernia. Upper abdomen demonstrates prior cholecystectomy changes as well as previous surgical changes related to left nephrectomy. Is a small degree of pneumobilia without biliary dilatation There are background degenerative features throughout the thoracic and lumbar spine. Is no acute fracture. No suspicious lytic or blastic lesion identified. IMPRESSION: 1. No CT angiographic evidence of pulmonary embolus or right ventricular strain 2. No acute aortic syndrome 3. Pulmonary emphysema and hyperinflation with small bilateral pleural effusions and right base atelectasis. Next number stable small mediastinal and hilar lymph nodes. Next number large paraesophageal hernia Next number operative changes of prior cholecystectomy and left nephrectomy. Dictated by: Dictated on workstation # [id number]
[2022-12-16 12:56] VITALS: BP 117/52
[2022-12-16] MEDS: RT-ALBUTEROL/IPRATROPIUM 3 ML (DUONEB) VIAL IH SCH ×3 (14:18→19:35)
[2022-12-16] MEDS: FLUTICASONE/VILANTEROL 200 MCG 14'S (BREO) IH SCH (14:21)
[2022-12-16 16:22] VITALS: BP 126/51
--- NOTE | 2022-12-16 17:05 | Cardiology Progress Note ---
Cardiology SOAP Progress Note Subjective: No significant cardiac complaints. Improved shortness of breath Objective: I&O/Vital Signs 12/17/22 12/17/22 12/17/22 12/17/22 08:17 08:22 10:15 12:13 Temp 36.4 36.9 Pulse 72 78 Resp 22 22 B/P (MAP) 116/55 (75) Pulse Ox 95 98 88 O2 Delivery Nasal Cannula Nasal Cannula Nasal Cannula Nasal Cannula O2 Flow Rate 3.00 3.00 3.00 3.00 12/17/22 00:00 Intake Total 1780 ml Output Total 1900 ml Balance -120 ml Weight (Pounds): 203 Weight (Ounces): 5.0 Weight (Calculated Kilograms): 92.030988 Constitutional: AAO x 3 Respiratory: No accessory muscle use, No respiratory distress; chest expansion is symmetric, lungs clear to auscultation Cardiovascular: regular rate-rhythm, bradycardia; No diastolic murmur, No systolic murmur Gastrointestional: soft Neurologic/Psychiatric: alert, normal mood/affect, oriented x 3 Skin: normal color Results/Procedures: Labs Laboratory Tests 12/16/22 16:11: Glucometer 172H 12/16/22 20:01: Glucometer 248H 12/17/22 05:16: White Blood Count 7.8, Red Blood Count 3.52L, Hemoglobin 10.2L, Hematocrit 33L, Mean Corpuscular Volume 94, Mean Corpuscular Hemoglobin 29, Mean Corpuscular Hemoglobin Concent 31L, Red Cell Distribution Width 14.0, Platelet Count 222, Mean Platelet Volume 9.8, Immature Granulocyte % (Auto) 0, Neutrophils (%) (Auto) 61, Lymphocytes (%) (Auto) 16, Monocytes (%) (Auto) 12, Eosinophils (%) (Auto) 11H, Basophils (%) (Auto) 0, Neutrophils # (Auto) 4.8, Lymphocytes # (Auto) 1.2, Monocytes # (Auto) 0.9, Eosinophils # (Auto) 0.9H, Basophils # (Auto) 0.0, Immature Granulocyte # (Auto) 0.0, Sodium Level 139, Potassium Level 5.0, Chloride Level 104, Carbon Dioxide Level 29, Anion Gap 6, Blood Urea Nitrogen 27H, Creatinine 1.20, Estimat Glomerular Filtration Rate 66, BUN/Creatinine Ratio 23, Glucose Level 167H, Calcium Level 8.8, Corrected Calcium 9.5, Magnesium Level 2.0, Total Bilirubin 0.2, Aspartate Amino Transf (AST/SGOT) 17, Alanine Aminotransferase (ALT/SGPT) 18, Alkaline Phosphatase 58, Total Protein 5.8L, Albumin 3.1L 12/17/22 05:41: Glucometer 153H 12/17/22 10:42: Glucometer 176H Microbiology 12/13/22 MRSA Screen - Final, Complete MRSA not isolated 12/13/22 Blood Culture - Preliminary, Resulted No growth A/P: Assessment/Dx: Pneumonia Sinus Bradycardia syncope history of Renal carcinoma with mets to lung Plan: No further bradycardia. Lowest heart rate that I have seen on telemetry is in the 50s. No further symptoms. EKG shows RBBB with QRS 120ms (evidence of mild distal conduction disease). Continue to monitor on telemetry. We will avoid any AV jenelle blocking agents. Patient to follow-up with Dr. Chiu as an outpatient for an event monitor for 30 days. Syncope was situational with patient complaining of severe neck pain and spasm and during certain maneuvers the patient claims that he passed out. Echocardiogram showed normal LV function with increased PA pressure. CT angiography done which did not show any pulmonary embolism. Thank you for your consultation. Please call me if you have any questions. Kieran Booth MD, FACP, FACC, FSCAI, FHRS, CCDS Interventional Cardiology Cardiac Electrophysiology Vascular Medicine and Endovascular Interventions Clinical Quality Measures Smoking Cessation Counseling: Counseling-Symptomatic: 3-10 Minutes Discussed Options Including: Nicotine Patch Mikel BOOTH MD Dec 16, 2022 17:05
[2022-12-16 20:02] VITALS: BP 131/61
[2022-12-16 23:17] VITALS: BP 118/56
[2022-12-17] MEDS: CEFEPIME INJECTION 1,000 MG in NS (IVPB) 50 ML IV SCH ×3 (02:16→14:02)
[2022-12-17] MEDS: IBUPROFEN 600 MG (MOTRIN) TAB PO SCH ×2 (02:17→08:47)
[2022-12-17 03:04] VITALS: BP 114/62
[2022-12-17 05:52] LABS: BASOPHILS % (AUTO) 0 % (0-10); EOSINOPHILS # (AUTO) 0.9 10^3/uL (0.0-0.3); EOSINOPHILS % (AUTO) 11 % (0-10); HEMATOCRIT 33 % (40-54); HEMOGLOBIN 10.2 g/dL (13.3-17.7); LYMPHOCYTES # (AUTO) 1.2 10^3/uL (1.0-4.0); LYMPHOCYTES % (AUTO) 16 % (12-44); MEAN CORPUSCULAR HEMOGLOBIN 29 pg (25-34); MEAN CORPUSCULAR HGB CONC 31 g/dL (32-36); MEAN CORPUSCULAR VOLUME 94 fL (80-99); MEAN PLATELET VOLUME 9.8 fL (9.0-12.2); MONOCYTES # (AUTO) 0.9 10^3/uL (0.0-1.0); MONOCYTES % (AUTO) 12 % (0-12); NEUTROPHILS # (AUTO) 4.8 10^3/uL (1.8-7.8); NEUTROPHILS % (AUTO) 61 % (42-75); PLATELET COUNT 222 10^3/uL (130-400); WHITE BLOOD COUNT 7.8 10^3/uL (4.3-11.0)
[2022-12-17 06:06] LABS: ALBUMIN 3.1 GM/DL (3.2-4.5)
[2022-12-17 06:08] LABS: CALCIUM 8.8 MG/DL (8.5-10.1)
[2022-12-17 06:09] LABS: TOTAL PROTEIN 5.8 GM/DL (6.4-8.2)
[2022-12-17 06:11] LABS: BILIRUBIN,TOTAL 0.2 MG/DL (0.1-1.0)
[2022-12-17 06:13] LABS: CREATININE SERUM 1.2 MG/DL (0.60-1.30)
[2022-12-17] MEDS: POTASSIUM CL 10MEQ/50ML IVPB 50 ML IV SCH (06:17)
[2022-12-17] MEDS: KCL 20 MEQ TAB (K-DUR) PO SCH (06:17)
[2022-12-17] MEDS: MAGNESIUM 1 GM/100 ML IVPB 100 ML IV SCH (06:17)
[2022-12-17 08:22] VITALS: BP 116/55
[2022-12-17] MEDS: GABAPENTIN 300 MG (NEURONTIN) CAP PO SCH ×2 (08:46→13:01)
[2022-12-17] MEDS: ASCORBIC ACID (VIT C) 500 MG TABLET PO SCH (08:46)
[2022-12-17] MEDS: lisINopril 20 MG (PRINIVIL) TABLET PO SCH (08:47)
[2022-12-17] MEDS: ENOXAPARIN 80 MG/0.8 ML (LOVENOX) SYR SC SCH (08:48)
[2022-12-17] MEDS: COLESTIPOL 1 GM (COLESTID) TAB PO SCH ×2 (08:50→14:03)
[2022-12-17] MEDS: AZITHROMYCIN 250 MG TAB (ZITHROMAX) PO SCH (08:52)
[2022-12-17] MEDS: RT-ALBUTEROL/IPRATROPIUM 3 ML (DUONEB) VIAL IH SCH (10:15)
[2022-12-17] MEDS: FLUTICASONE/VILANTEROL 200 MCG 14'S (BREO) IH SCH (10:15)
[2022-12-17] MEDS ORDERED: AMOX1TAB12 PO (10:17)
[2022-12-17] MEDS ORDERED: CYCL10TA25 PO (10:17)
--- NOTE | 2022-12-17 12:57 | Occupational Therapy Eval ---
OT Evaluation-General/PLF Medical Diagnosis Admission Date Dec 13, 2022 at 11:27 Medical Diagnosis: pneumonia Onset Date: Dec 13, 2022 Therapy Diagnosis Therapy Diagnosis: weakness Height/Weight Height (Feet): 6 Height (Inches): 4.00 Weight (Pounds): 203 Weight (Ounces): 5.0 Precautions Precautions/Isolations: Standard Precautions Weight Bear Status Weight Bearing Restriction: Full Weight Bearing Location Restriction: LE Bilateral, UE Bilateral Referral Physician: Quiana Referral Reason: Evaluation/Treatment Medical History Pertinent Medical History: Arthritis, DM, HTN, Smoking Social History Home: Single Level Entry Into Home: Stairs With Railing Steps Into Home: 4 ADL-Prior Level of Function SCALE: Activities may be completed with or without assistive devices. 8-Bgetuxpmoj-duegwie completes the activity by him/herself with no assistance from a helper. 5-Set-up or Clean-up Assistance-helper sets up or cleans up; patient completes activity. [place] assists only prior to or following the activity. 4-Supervision or Touching Assistance-helper provides verbal cues and/or touching/steadying and/or contact guard assistance as patient completes activity. Assistance may be provided throughout the activity or intermittently. 3-Partial/Moderate Assistance-helper does LESS THAN HALF the effort. [place] lifts, holds or supports trunk or limbs, but provides less than half the effort. 2-Substantial/Maximal Assistance-helper does MORE THAN HALF the effort. [place] lifts or holds trunk or limbs and provides more than half the effort. 1-Peujapcem-hvjvzf does ALL the effort. Patient does none of the effort to complete the activity. Or, the assistance of 2 or more helpers is required for the patient to complete the activity. If activity was not attempted, code reason: 7-Patient Refused. 9-Not Applicable-not attempted and the patient did not perform the activity before the current illness, exacerbation or injury. 10-Not Attempted due to Environmental Limitations-(lack of equipment, weather restraints, etc.). 88-Not Attempted due to Medical Conditions or Safety Concerns. Self Care: Independent Functional Cognition: Independent Drive Self: Yes OT Current Status Subjective Upright in bed, agreeable to OT Pain Numeric Pain Scale: 0-No Pain Mental Status/Objective Patient Orientation: Person, Place, Time, Situation Attachments: Oxygen Current Glasses/Contacts: Yes Upper Extremity ROM BUE ROM WFLS Upper Extremity Coordination BUE WFLS, INTACT Upper Extremity Strength 4/5 Grossly hand i cutter 5/5 ADL-Treatment Eating (QC): 6 Oral Hygiene (QC): 6 Shower/Bathe Self (QC): 7 Upper Body Dressing (QC): 6 Lower Body Dressing (QC): 6 On/Off Footwear (QC): 6 Toileting Hygiene (QC): 6 No use of ADs,moves bed tray table independently, manages 02 lines w/ assistance;y Education OT Patient Education: Correct positioning, Modified ADL techniques, Progress toward Goal/Update tx plan, Purpose of tx/functional activities, Reviewed preca utions, Rehab process, Safety issues, Use of adapted equipment Teaching Recipient: Patient Teaching Methods: Discussion Response to Teaching: Verbalize Understanding, Return Demonstration OT Make Ready Mechanic Goals Make Ready Mechanic Goals 1=Demonstrate adherence to instructed precautions during ADL tasks. 2=Patient will verbalize/demonstrate understanding of assistive devices/modifications for ADL. 3=Patient will improve strength/tolerance for activity to enable patient to perform ADL's. OT Education/Plan Problem List/Assessment Assessment: No Skilled OT Needs ID'd Discharge Recommendations Plan/Recommendations: Discontinue OT Treatment Plan/Plan of Care Treatment,Training & Education: Yes Patient would benefit from OT for education, treatment and training to promote independence in ADL's, mobility, safety and/or upper extremity function for ADL's. Plan of Care: OTHER (EVAL ONLY) Treatment Duration: Dec 17, 2022 Frequency: 1 time per week Estimated Hrs Per Day: .25 hour per day Agreement: Yes Rehab Potential: Good Time Start Time: 11:50 Stop Time: 12:05 DATE: Dec 17, 2022 Total Time Billed (hr/min): 15 Billed Treatment Time EVM 15 min CLEM EDWARDS OT Dec 17, 2022 12:57
--- NOTE | 2022-12-17 19:17 | Discharge Summary ---
Discharge Summary Hospital Course Problems/Dx: (1) Neck pain, acute Status: Acute (2) Community acquired pneumonia Status: Acute Qualifiers: Qualified Codes: J18.9 - Pneumonia, unspecified organism (3) MARÍA (acute kidney injury) Status: Acute (4) Acute respiratory failure with hypoxia and hypercapnia Status: Acute (5) PNA (pneumonia) Status: Acute (6) 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 (7) Insulin dependent diabetes mellitus Status: Chronic (8) COPD (chronic obstructive pulmonary disease) Status: Acute (9) Essential (primary) hypertension Status: Chronic Hospital Course Date of Admission: Dec 13, 2022 at 11:27 Admission Diagnosis : Pneumonia, syncope Family Physician/Provider: Shawn Callejas MD Date of Discharge: 12/17/22 Discharge Diagnosis: Pneumonia, syncope Hospital Course: Paul Mejía is a 67 year old male with PMH RCC s/p nephrectomy who was admitted after an episode of syncope. He had been having neck pain. He was found to have a pneumonia and was treated with antibiotics. He was also found to be bradycardic. Cardiology was consulted and assisted with his care. He was treated conservatively and his bradycardia resolved. An echo showed elevated pulmonary artery pressures. A CT was negative for pulmonary embolism. His elevated pulmonary pressures were thought to be due to chronic hypoxia due to non- compliance with his home oxygen. He was given a short course of Augmentin for his pneumonia. He was given a small supply of Flexeril for his neck pain. He was discharged home in stable condition. He should follow up with his PCP, Dr. Callejas, in about a week. Labs and Pending Lab Test: Laboratory Tests 12/16/22 20:01: Glucometer 248H 12/17/22 05:16: White Blood Count 7.8, Red Blood Count 3.52L, Hemoglobin 10.2L, Hematocrit 33L, Mean Corpuscular Volume 94, Mean Corpuscular Hemoglobin 29, Mean Corpuscular Hemoglobin Concent 31L, Red Cell Distribution Width 14.0, Platelet Count 222, Mean Platelet Volume 9.8, Immature Granulocyte % (Auto) 0, Neutrophils (%) (Auto) 61, Lymphocytes (%) (Auto) 16, Monocytes (%) (Auto) 12, Eosinophils (%) (Auto) 11H, Basophils (%) (Auto) 0, Neutrophils # (Auto) 4.8, Lymphocytes # (Auto) 1.2, Monocytes # (Auto) 0.9, Eosinophils # (Auto) 0.9H, Basophils # (Auto) 0.0, Immature Granulocyte # (Auto) 0.0, Sodium Level 139, Potassium Level 5.0, Chloride Level 104, Carbon Dioxide Level 29, Anion Gap 6, Blood Urea Nitrogen 27H, Creatinine 1.20, Estimat Glomerular Filtration Rate 66, BUN/Creatinine Ratio 23, Glucose Level 167H, Calcium Level 8.8, Corrected Calciu m 9.5, Magnesium Level 2.0, Total Bilirubin 0.2, Aspartate Amino Transf (AST/SGOT) 17, Alanine Aminotransferase (ALT/SGPT) 18, Alkaline Phosphatase 58, Total Protein 5.8L, Albumin 3.1L 12/17/22 05:41: Glucometer 153H 12/17/22 10:42: Glucometer 176H Microbiology 12/13/22 MRSA Screen - Final, Complete MRSA not isolated 12/13/22 Blood Culture - Preliminary, Resulted No growth Home Meds Active Amox Tr-K Clv 875-125 mg Tab (Amoxicillin/Potassium Clav) 875 Mg-125 Mg Tablet 1 Each PO DAILY 5 Days Cyclobenzaprine HCl 10 Mg Tablet 5 Mg PO TID PRN 5 Days Reported Levemir Flexpen (Insulin Detemir) 100 Unit/Ml (3 Ml) Insuln.pen 22 Units SC BID Vitamin B-6 (Pyridoxine HCl) 50 Mg Capsule 50 Mg PO DAILY Neurontin (Gabapentin) 300 Mg Capsule 300 Mg PO TID Colestipol HCl 1 Gram Tablet 1 Gm PO 1400,2000 Lisinopril 20 Mg Tablet 40 Mg PO DAILY TAKES 2 (20MG) TABS Novolog Flexpen (Insulin Aspart) 100 Unit/Ml (3 Ml) Solution 8 Units SQ AC Iprat-Albut 0.5-3(2.5) mg/3 ml (Ipratropium/Albuterol Sulfate) 0.5 Mg-3 Mg (2.5 Mg Base)/3 Ml Ampul.neb 3 Ml NEB TID Breo Ellipta 200-25 Mcg INH (Fluticasone/Vilanterol) 1 Each Blst.w.dev 1 Each IH DAILY Colestipol HCl 1 Gram Tablet 2 Gm PO DAILY TAKES 2 (1GM) TABLET Vitamin C (Ascorbic Acid) 500 Mg Tablet 500 Mg PO DAILY Assessment/Pt Instructions See instructions Discharge Planning: >30 minutes discharge planning Discharge Instructions Discharge Diet: No Restrictions, ADA Diet Activity as Tolerated: Yes Consultations Cardiology Discharge Physical Examination Vital Signs Vital Signs Date Time Temp Pulse Resp B/P (MAP) Pulse Ox O2 Delivery O2 Flow Rate FiO2 12/17/22 12:13 36.9 78 22 Nasal Cannula 3.00 12/17/22 10:15 88 General Appearance: No Apparent Distress, WD/WN Respiratory: Lungs Clear, No Respiratory Distress Cardiovascular: Regular Rate, Rhythm, No Murmur Gastrointestinal: Normal Bowel Sounds, Soft Extremity: Normal Inspection, No Pedal Edema Skin: Normal Color, Warm/Dry Neurologic/Psychiatric: Alert, Normal Mood/Affect Allergies: Coded Allergies: meperidine (Verified Allergy, Mild, RASH, Pt has received Fentanyl w/o issue, 12/15/18) Copy Copies To 1: SHAWN CALLEJAS MD Discharge Summary Date of Admission Dec 13, 2022 at 11:27 Date of Discharge Dec 17, 2022 at 14:22 Discharge Date: Dec 17, 2022 Discharge Time: 14:22 Admission Diagnosis CAP Consults/Procedures Consulations Cardiology Discharge Diagnosis (1) Neck pain, acute Status: Acute (2) Community acquired pneumonia Status: Acute Qualifiers: Qualified Codes: J18.9 - Pneumonia, unspecified organism (3) MARÍA (acute kidney injury) Status: Acute (4) Acute respiratory failure with hypoxia and hypercapnia Status: Acute (5) PNA (pneumonia) Onset Date: ~ 07/08/2021 Status: Acute (6) 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 (7) Insulin dependent diabetes mellitus Status: Chronic (8) COPD (chronic obstructive pulmonary disease) Status: Acute (9) Essential (primary) hypertension Status: Chronic Clinical Quality Measures Smoking Cessation Counseling: Counseling-Symptomatic: 3-10 Minutes Discussed Options Including: Nicotine Patch SHAKA THOMAS MD Dec 17, 2022 19:16
== END 2022-12-17 14:22 | disposition home or self-care (01) | DRG 193 ==
LOC: EDUNIT# 06:04 → ER 06:06 → ICU 11:27 → 4TH 12-15 13:38
PROVIDERS: ADMIT Family Medicine; ATTEND Internal Medicine
DX: J18.9 Pneumonia, unspecified organism (principal); J96.01 Acute respiratory failure with hypoxia; J96.02 Acute respiratory failure with hypercapnia; N17.9 Acute kidney failure, unspecified; C78.00 Secondary malignant neoplasm of unspecified lung; J44.0 Chronic obstructive pulmonary disease with (acute) lower respiratory infection; M54.2 Cervicalgia; Z90.5 Acquired absence of kidney; Z79.4 Long term (current) use of insulin; Z79.899 Other long term (current) drug therapy; F17.210 Nicotine dependence, cigarettes, uncomplicated; Z96.653 Presence of artificial knee joint, bilateral; M19.90 Unspecified osteoarthritis, unspecified site; G89.29 Other chronic pain; M54.9 Dorsalgia, unspecified; Z92.21 Personal history of antineoplastic chemotherapy; N18.9 Chronic kidney disease, unspecified; I12.9 Hypertensive chronic kidney disease with stage 1 through stage 4 chronic kidney disease, or unspecified chronic kidney disease; Z85.528 Personal history of other malignant neoplasm of kidney; E11.22 Type 2 diabetes mellitus with diabetic chronic kidney disease; R00.1 Bradycardia, unspecified; I27.20 Pulmonary hypertension, unspecified; D63.1 Anemia in chronic kidney disease
CPT/HCPCS: 36415; 71045; 71275; 80053; 82805; 82947; 83605; 83735; 84100; 85025; 85610; 85730; 86738; 87040; 87081; 93005; 93306; 93880; 94640; 94760

== ENCOUNTER 2023-01-07 15:38 | Outpatient (RCR) | payer BC ==
[~2023-01-07] VITALS: Ht 188 cm; Wt 77.0 kg
[~2023-01-07 15:38] MED LIST changes: +AMOX1TAB12 PO; +CYCL10TA25 PO; +HEParin (CENTRAL IV FLUSH) 500 UNIT/5 ML SYR IV PRN; +INSU100I88 SC; +NIVOLUMAB 480 MG in NS (IVPB) 100 ML 100 ML IV SCH; +NS (IVPB) 250 ML 250 ML IV SCH; +NS IV 500 ML (CANCER CENTER) IV SCH
[2023-01-07 16:09] LABS: BASOPHILS % (AUTO) 0 % (0-10); EOSINOPHILS # (AUTO) 0.7 10^3/uL (0.0-0.3); EOSINOPHILS % (AUTO) 9 % (0-10); HEMATOCRIT 34 % (40-54); HEMOGLOBIN 10.4 g/dL (13.3-17.7); LYMPHOCYTES # (AUTO) 2.1 X 10^3 (1.0-4.0); LYMPHOCYTES % (AUTO) 27 % (12-44); MEAN CORPUSCULAR HEMOGLOBIN 30 pg (25-34); MEAN CORPUSCULAR HGB CONC 31 g/dL (32-36); MEAN CORPUSCULAR VOLUME 96 fL (80-99); MEAN PLATELET VOLUME 9.7 fL (9.0-12.2); MONOCYTES # (AUTO) 0.7 X 10^3 (0.0-1.0); MONOCYTES % (AUTO) 9 % (0-12); NEUTROPHILS # (AUTO) 4.3 X 10^3 (1.8-7.8); NEUTROPHILS % (AUTO) 55 % (42-75); PLATELET COUNT 212 10^3/uL (130-400); WHITE BLOOD COUNT 7.8 10^3/uL (4.3-11.0)
[2023-01-07 16:25] VITALS: BP 110/62
[2023-01-07 16:28] LABS: ALBUMIN 4.1 GM/DL (3.2-4.5); BILIRUBIN,TOTAL 0.7 MG/DL (0.1-1.0); CREATININE SERUM 1.42 MG/DL (0.60-1.30); POTASSIUM 4.8 MMOL/L (3.6-5.0); TOTAL PROTEIN 6.7 GM/DL (6.4-8.2)
[2023-01-07 16:45] VITALS: BP 110/62
== END 2023-01-31 | disposition home or self-care (01) ==
LOC: ONC 15:38
PROVIDERS: ATTEND Internal Medicine Hematology & Oncology
DX: Z51.11 Encounter for antineoplastic chemotherapy (principal); C64.2 Malignant neoplasm of left kidney, except renal pelvis; R91.1 Solitary pulmonary nodule; N19 Unspecified kidney failure
CPT/HCPCS: 80053; 85025; 96413; G0463; 36415; 99214

== ENCOUNTER 2023-01-31 10:30 | Emergency (ER) | payer BC, MEDICARE ==
[~2023-01-31] VITALS: Ht 193 cm; Wt 80.0 kg
[~2023-01-31 10:30] MED LIST changes: -HEParin (CENTRAL IV FLUSH) 500 UNIT/5 ML SYR IV PRN; -NIVOLUMAB 480 MG in NS (IVPB) 100 ML 100 ML IV SCH; -NS (IVPB) 250 ML 250 ML IV SCH; -NS IV 500 ML (CANCER CENTER) IV SCH
[2023-01-31 10:58] LABS: BASOPHILS % (AUTO) 0 % (0-10); EOSINOPHILS # (AUTO) 0.3 10^3/uL (0.0-0.3); EOSINOPHILS % (AUTO) 4 % (0-10); HEMATOCRIT 35 % (40-54); LYMPHOCYTES # (AUTO) 0.9 10^3/uL (1.0-4.0); LYMPHOCYTES % (AUTO) 14 % (12-44); MEAN CORPUSCULAR HEMOGLOBIN 30 pg (25-34); MEAN CORPUSCULAR HGB CONC 31 g/dL (32-36); MEAN CORPUSCULAR VOLUME 97 fL (80-99); MEAN PLATELET VOLUME 9.8 fL (9.0-12.2); MONOCYTES # (AUTO) 0.6 10^3/uL (0.0-1.0); MONOCYTES % (AUTO) 9 % (0-12); NEUTROPHILS # (AUTO) 4.8 10^3/uL (1.8-7.8); NEUTROPHILS % (AUTO) 73 % (42-75); PLATELET COUNT 220 10^3/uL (130-400); WHITE BLOOD COUNT 6.6 10^3/uL (4.3-11.0)
[2023-01-31 11:04] LABS: PROTHROMBIN TIME PATIENT 13.2 SEC (12.2-14.7)
[2023-01-31 11:11] LABS: ALANINE AMINOTRANSFERASE 24 U/L (0-55); ALBUMIN 4.3 GM/DL (3.2-4.5); ALKALINE PHOSPHATASE 62 U/L (40-136); BILIRUBIN,TOTAL 0.5 MG/DL (0.1-1.0); BUN/CREATININE RATIO 15; CALCIUM 9.3 MG/DL (8.5-10.1); CARBON DIOXIDE 25 MMOL/L (21-32); CHLORIDE 106 MMOL/L (98-107); CREATININE SERUM 1.27 MG/DL (0.60-1.30); GFR ESTIMATED 62; POTASSIUM 4.3 MMOL/L (3.6-5.0); SODIUM 142 MMOL/L (135-145)
[2023-01-31 11:13] LABS: GLUCOSE 34 MG/DL (70-105)
[2023-01-31] MEDS ORDERED: DEXTROSE 50% 50 ML (IMS) SYR ONE (11:14)
--- NOTE | 2023-01-31 11:18 | ED Chest Pain ---
General Chief Complaint: Dizziness/Syncope Stated Complaint: HARD TIME BREATHING, STROKE LIKE SYMPTOMS PER PT Nursing Triage Note: PATIENT ARRIVES TO ROOM [address], [facility], WITH C/O ONE EPISODE OF CHEST PAIN, RESOLVED, DIZZINESS, SHORTNESS OF BREATH AND WEAKNESS THAT STARTED TODAY. Source: patient Exam Limitations: no limitations (ERIC STEPHENS) History of Present Illness Date Seen by Provider: Jan 31, 2023 Time Seen by Provider: 11:16 Initial Comments Patient is a 67-year-old male with a history of hypertension, type 2 diabetes, smoking, COPD, carotid artery disease, renal cell carcinoma, who presents to ED for episode of chest pain. This occurred 1 hour ago. Patient works at [employer]. Was working at the time. Started feeling dizzy he sat down felt a sharp substernal pain that lasted less than 1 second. No shortness of breath. He states right before the dizziness occurred he was drinking a new type of energy drink. He drinks energy drinks daily. Denies feeling nauseous at the time. Denies history of heart attack. History of rheumatic fever. Denies artificial or Bovine heart valve. Patient states symptoms are much better at this time. Does have a pain to his left foot. Does wear steel toe boots denies any trauma. Denies of any current chest pain, cough, shortness of breath, headache, dizziness, visual changes, unilateral muscle weakness or sensory changes. No history of stroke. Does take Levemir at night and in the morning. (ERIC STEPHENS) Allergies and Home Medications Allergies Coded Allergies: meperidine (Verified Allergy, Mild, RASH, Pt has received Fentanyl w/o issue, 01/31/23) Patient Home Medication List Home Medication List Reviewed: Yes (ERIC STEPHENS) Amoxicillin/Potassium Clav (Amox Tr-K Clv 875-125 mg Tab) 875 Mg-125 Mg Tablet, 1 EACH PO DAILY Prescribed by: SHAKA THOMAS on 12/17/22 1017 Ascorbic Acid (Vitamin C) 500 Mg Tablet, 500 MG PO DAILY, (Reported) Entered as Reported by: JADA KIMBALL on 09/21/15 1057 Colestipol HCl (Colestipol HCl) 1 Gram Tablet, 2 GM PO DAILY, (Reported) Entered as Reported by: JADA KIMBALL on 04/19/17 1519 Colestipol HCl (Colestipol HCl) 1 Gram Tablet, 1 GM PO 1399,1999, (Reported) Entered as Reported by: ILA PAINTING on 03/06/22 09 Cyclobenzaprine HCl (Cyclobenzaprine HCl) 10 Mg Tablet, 5 MG PO TID PRN for MUSCLE SPASMS Prescribed by: SAHKA THOMAS on 12/17/22 1017 Fluticasone/Vilanterol (Breo Ellipta 200-25 Mcg INH) 1 Each Blst.w.dev, 1 EACH IH DAILY, (Reported) Entered as Reported by: ILA PAINTING on 07/10/21 153 Gabapentin (Neurontin) 300 Mg Capsule, 300 MG PO TID, (Reported) Entered as Reported by: ILA PAINTING on 03/06/22 09 Insulin Aspart (Novolog Flexpen) 100 Unit/Ml (3 Ml) Solution, 8 UNITS SQ AC, (Reported) Entered as Reported by: ILA PAINTING on 11/08/21 1004 Insulin Detemir (Levemir Flexpen) 100 Unit/Ml (3 Ml) Insuln.pen, 22 UNITS SC BID, (Reported) Entered as Reported by: ILA PAINTING on 12/13/22 1426 Ipratropium/Albuterol Sulfate (Iprat-Albut 0.5-3(2.5) mg/3 ml) 0.5 Mg-3 Mg (2.5 Mg Base)/3 Ml Ampul.neb, 3 ML NEB TID, (Reported) Entered as Reported by: ILA PAINTING on 11/08/21 1004 Lisinopril (Lisinopril) 20 Mg Tablet, 40 MG PO DAILY, (Reported) Entered as Reported by: ILA PAINTING on 11/08/21 1109 Pyridoxine HCl (Vitamin B-6) 50 Mg Capsule, 50 MG PO DAILY, (Reported) Entered as Reported by: ILA PAINTING on 03/06/22 09 Review of Systems Review of Systems Constitutional: No chills, No diaphoresis; dizziness; No malaise, No weakness EENTM: No Eye Pain Respiratory: Denies Cough Cardiovascular: Chest Pain Gastrointestinal: Denies Nausea, Denies Vomiting Genitourinary: Denies Burning, Denies Discharge, Denies Drainage, Denies Frequency Musculoskeletal: No back pain, No joint pain (ERIC STEPHENS) All Other Systems Reviewed Negative Unless Noted: Yes (ERIC STEPHENS) Past Yrfwdzz-Yixmbv-Bczpki Hx Patient Social History Tobacco Use?: Yes Tobacco type used: Cigarettes Smoking Status: Current Everyday Smoker Use of E-Cig and/or Vaping dev: No Substance use?: No Alcohol Use?: No Pt feels they are or have been: No (ERIC STEPHENS) Immunizations Up To Date Tetanus Booster (TDap): More than 5yrs First/Initial COVID19 Vaccinat: MAY 2021 Second COVID19 Vaccination Sal: JUNE 2021 Third COVID19 Vaccination Date: MAY 2021 (ERIC STEPHENS) Seasonal Allergies Seasonal Allergies: Yes (ERIC STEPHENS) Past Medical History Surgery/Hospitalization HX: pneumonia in june 25 Surgeries: Yes (BILAT TKR, BMT, HERNIA X2;CATARACTS;THUMB SURGERY;L NEPHRECTOMY;LUNG BX) Abdominal, Ear Surgery, Eye Surgery, Gallbladder, Joint Replacement, Nephrectomy, Orthopedic Respiratory: Yes (LUNG BIOPSY/PNEUMOTHORAX; LUNG CANCER) Pneumonia, Chronic Bronchitis, COPD Currently Using CPAP: No Currently Using BIPAP: No Cardiac: Yes Hypertension, Rheumatic Fever Neurological: No Reproductive Disorders: No HIV/AIDS: No Genitourinary: Yes (RENAL CANCER--LEFT NEPHRECTOMY) Gastrointestinal: Yes Chronic Diarrhea, Polyps Musculoskeletal: Yes (FX L LEG,CLAVICLE,RIBS,FOOT; KNEE SX/SCREWS;OSTEOARTHRITIS KNEES/BILAT TKR) Degenerate Disk Disease, Arthritis, Chronic Back Pain, Fractures Endocrine: Yes (INSULIN + ORAL MEDICATIONS) Diabetes, Insulin dep HEENT: Yes (GLASSES, PARTIAL ) Cataract Loss of Vision: Denies Hearing Impairment: Hard of Hearing Cancer: Yes (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) Lung, Kidney Did You Recieve Any Treatments: Yes What Type of Treatment Did You: Chemotherapy, Surgical Intervention Psychosocial: No Integumentary: No Blood Disorders: No Adverse Reaction/Blood Tranf: No (N/A) (ERIC STEPHENS) Family Medical History Diabetes mellitus 19 FATHER 19 MOTHER G8 BROTHER FH: skin cancer 19 MOTHER Family history: Arthritis Family history: Coronary thrombosis Family history: Diabetes mellitus History of - respiratory disease No Family History of: Abdominal aortic aneurysm Karlos's disease Alcoholism Aphasia Cancer Cancer of colon Cataract Chest pain Congenital heart disease Congestive heart failure Cystic fibrosis Dementia Dysphagia Family history: Allergy Family history: Alzheimer's disease Family history: Asthma Family history: Breast disease Family history: Cardiovascular disease Family history: Gastrointestinal disease Family history: Glaucoma Family history: Hypertension Family history: Osteoporosis Family history: Thyroid disorder Headache Hearing loss Heart disease Hereditary disease History of - anemia History of - disorder History of drug abuse Human immunodeficiency virus (HIV) seropositivity Hypercholesterolemia Infertile Kidney disease Malignant neoplasm of lung Myocardial infarction Parkinson's disease Prostate cancer Psychotic disorder Seizure disorder Stroke Tuberculosis Visual impairment Heart Disease, Diabetes SOCIAL HISTORY: -ETOH--DENIES USE -SMOKES 1 PPD -DRUGS--DENIES USE PSH: -HERNIA REPAIR X 2 -BILATERAL MYRINGOTOMY TUBES -CARPAL TUNNEL SURGERY -BILATERAL CATARACT SURGERY -SCREWS IN KNEE AND LATER REMOVED -BILATERAL KNEE REPLACEMENTS 2013 -LEFT NEPHRECTOMY FOR CANCER 2013 -LUNG BIOPSY WITH PNEUMOTHORAX (ERIC STEPHENS) Physical Exam Vital Signs Vital Signs - First Documented 01/31/23 10:35 Temp 35.8 Pulse 63 Resp 12 B/P (MAP) 130/62 (84) Pulse Ox 97 O2 Delivery Room Air (TAD LINDSEY MD) Vital Signs Capillary Refill : Less Than 3 Seconds (ERIC STEPHENS) Height, Weight, BMI Height: 6'4.00" Weight: 203lbs. 5.0oz. 92.375385qa; 21.00 BMI Method:Stated General Appearance: No Apparent Distress, WD/WN HEENT: PERRL/EOMI, TMs Normal, Normal ENT Inspection, Pharynx Normal Neck: Full Range of Motion, Normal Inspection, Non Tender, Supple Respiratory: Chest Non Tender, Lungs Clear, Normal Breath Sounds, No Accessory Muscle Use, No Respiratory Distress Cardiovascular: Regular Rate, Rhythm, No Edema, No Gallop, No JVD, No Murmur Gastrointestinal: Normal Bowel Sounds, No Organomegaly, No Pulsatile Mass, Non Tender Extremity: Normal Capillary Refill, Normal Inspection, Normal Range of Motion, Non Tender Neurologic/Psychiatric: Alert, Oriented x3, No Motor/Sensory Deficits, Normal 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, 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 as Tested Skin: Normal Color, Warm/Dry (ERIC STEPHENS) Procedures/Interventions Date of ETT Placement: Jul 07, 2021 Time of ETT Placement: 2236 (ERIC STEPHENS) Progress/Results/Core Measures Results/Orders Lab Results Laboratory Tests Test 01/31/23 10:45 01/31/23 11:33 01/31/23 11:53 01/31/23 13:04 Range/Units White Blood Count 6.6 4.3-11.0 10^3/uL Red Blood Count 3.67 L 4.30-5.52 10^6/uL Hemoglobin 11.0 L 13.3-17.7 g/dL Hematocrit 35 L 40-54 % Mean Corpuscular Volume 97 80-99 fL Mean Corpuscular Hemoglobin 30 25-34 pg Mean Corpuscular Hemoglobin Concent 31 L 32-36 g/dL Red Cell Distribution Width 14.8 H 10.0-14.5 % Platelet Count 220 130-400 10^3/uL Mean Platelet Volume 9.8 9.0-12.2 fL Immature Granulocyte % (Auto) 0 % Neutrophils (%) (Auto) 73 42-75 % Lymphocytes (%) (Auto) 14 12-44 % Monocytes (%) (Auto) 9 0-12 % Eosinophils (%) (Auto) 4 0-10 % Basophils (%) (Auto) 0 0-10 % Neutrophils # (Auto) 4.8 1.8-7.8 10^3/uL Lymphocytes # (Auto) 0.9 L 1.0-4.0 10^3/uL Monocytes # (Auto) 0.6 0.0-1.0 10^3/uL Eosinophils # (Auto) 0.3 0.0-0.3 10^3/uL Basophils # (Auto) 0.0 0.0-0.1 10^3/uL Immature Granulocyte # (Auto) 0.0 0.0-0.1 10^3/uL Prothrombin Time 13.2 12.2-14.7 SEC INR Comment 1.0 0.8-1.4 Activated Partial Thromboplast Time 30 24-35 SEC Sodium Level 142 135-145 MMOL/L Potassium Level 4.3 3.6-5.0 MMOL/L Chloride Level 106 98-107 MMOL/L Carbon Dioxide Level 25 21-32 MMOL/L Anion Gap 11 5-14 MMOL/L Blood Urea Nitrogen 19 H 7-18 MG/DL Creatinine 1.27 0.60-1.30 MG/DL Estimat Glomerular Filtration Rate 62 BUN/Creatinine Ratio 15 Glucose Level 34 *L 70-105 MG/DL Calcium Level 9.3 8.5-10.1 MG/DL Corrected Calcium 9.1 8.5-10.1 MG/DL Magnesium Level 2.0 1.6-2.4 MG/DL Total Bilirubin 0.5 0.1-1.0 MG/DL Aspartate Amino Transf (AST/SGOT) 28 5-34 U/L Alanine Aminotransferase (ALT/SGPT) 24 0-55 U/L Alkaline Phosphatase 62 40-136 U/L Myoglobin 234.4 H 10.0-92.0 NG/ML Troponin I < 0.028 < 0.028 <0.028 NG/ML Total Protein 7.0 6.4-8.2 GM/DL Albumin 4.3 3.2-4.5 GM/DL Glucometer 141 H 169 H 70-110 MG/DL Test 01/31/23 13:19 Range/Units Glucometer 198 H 70-110 MG/DL (TAD LINDSEY MD) My Orders Orders - TAD LINDSEY MD Cbc With Automated Diff (01/31/23 10:51) Magnesium (01/31/23 10:51) Chest 1 View, Ap/Pa Only (01/31/23 10:51) Ekg Tracing (01/31/23 10:51) Comprehensive Metabolic Panel (01/31/23 10:51) Myoglobin Serum (01/31/23 10:51) Protime With Inr (01/31/23 10:51) Partial Thromboplastin Time (01/31/23 10:51) O2 (01/31/23 10:51) Monitor-Rhythm Ecg Trace Only (01/31/23 10:51) Ed Iv/Invasive Line Start (01/31/23 10:51) Troponin I [place] (01/31/23 10:51) D50w (Emergency) Syringe (Dextrose 50% 5 (01/31/23 11:14) (TAD LINDSEY MD) Medications Given in ED Current Medications Medications Dose Ordered Sig/Bonnie Route Start Time Stop Time Status Last Admin Dose Admin Dextrose 50 ml STK-MED ONCE .ROUTE 01/31/23 11:14 01/31/23 11:15 DC 01/31/23 11:18 50 ML (TAD LINDSEY MD) Vital Signs/I&O 01/31/23 01/31/23 01/31/23 10:35 10:35 13:56 Temp 35.8 36.0 Pulse 63 52 Resp 12 19 B/P (MAP) 130/62 (84) 115/60 Pulse Ox 97 95 O2 Delivery Room Air Room Air Room Air (TAD LINDSEY MD) Blood Pressure Mean: 84 Comment Sinus bradycardia, left axis deviation, right bundle branch block, 59 bpm, QRS duration 125 MS, QTc 478 MS (ERIC STEPHENS) Departure Communication (PCP) Reviewed previous ER visits, H&P, lab testing. Took over care for Dr. Escobar who initially put in acute orders when i came onto shift at 11. Patient was seen early in December and diagnosed with pneumonia and evaluated for syncope. Diagnosed with pneumonia, bradycardia carotid artery stenosis. susu nt has a history of lung cancer, diabetes, hypertension. Patient does follow Dr. Espinosa's's oncologist for lung cancer and nephrology due to solitary kidney secondary to renal cancer. Patient states he felt dizzy lightheaded and had to sit down while at work. [place] a sharp pain in his chest that lasted for a second with no associated shortness of breath, vomiting, headache, unilateral weakness or sensory changes.. Symptoms did seem to improve and he is currently asymptomatic. Denies of any known cardiac history. Does have a known history of bradycardia which was noted on arrival. Due to his current complaint cardiac work-up was initiated. States symptoms started right after he drank a different energy drink this morning. Drink energy drinks daily. EKG did note sinus bradycardia with right bundle branch block which appears chronic. CBC showed a hemoglobin 11 but otherwise stable. Chemistry was grossly stable but showed a blood sugar 34. Patient Was given D50. He did appear slightly sluggish when he was speaking. BS Imporved to 198. He has no focal neural deficits or strokelike symptoms on evaluation. NIH is 0. No slurred speech, aphasia dysarthria but was slightly sluggish. Initial troponin negative. Patient states he took a full aspirin today which was not given. He states he did have a pain in his left plantar foot but that did improve. Patient recently evaluated for his bradycardia with cardiology in december who recommend outpatient cardiology follow-up with a monitor. Stable bradycardia at that time. Patient has not followed up. Chest x-ray was obtained which note right hilar prominence may reflect edema, pneumonitis, or scarring. No pneumonia. The possibility of underlying adenopathy is not fully excluded. CT angio of the chest in early December noted some adenopathy. History of emphysema. Furthur outpatient follow up Due to his complaint and cardiac risk factors with a heart score of 3, a 3 hour delta troponin was ordered which was negative. Continue monitoring blood sugar which remained slightly high. Patient was feeling much better at this time. There is no evidence of strokelike symptoms. He is not tachycardic or hypoxic. Patient without any flulike symptoms such as cough, nasal congestion, ear pin, N/V/D. . Symptoms most likely secondary to hypoglycemia. Symptoms could have exacerbated with the energy drink with the dizziness and chest pain. Patient had a cardiac stress test in 2019 that showed some mild ischemic changes and EF of 49%. Due to remaining asymptomatic, nonspecific chest pain, cardiac outpatient follow-up at this time. (ERIC STEPHENS) Impression Primary Impression: Hypoglycemia Additional Impression: Chest pain Disposition: 01 HOME, SELF-CARE Condition: Stable Departure-Patient Inst. Decision time for Depature: 13:22 (ERIC STEPHENS) Referrals: SHAWN CALLEJAS MD (PCP/Family) Primary Care Physician Patient Instructions: Low Blood Sugar, Adult ED Add. Discharge Instructions: Continue monitoring blood pressure. Follow-up with your primary care physician 2 to 3 days for reevaluation. Cardiology outpatient follow-up for chest pain. If any worsening chest pain or shortness of breath return back to ED All discharge instructions reviewed with patient and/or family. Voiced understanding. ATTENDING PHYSICIAN NOTE: I was physically present as attending physician in the emergency department during the care of this patient. I received the initial report of chief complaint from registration and placed the chest pain order set accordingly as I was unable to immediately be present in the room due to multiple simultaneous patient needs. Care was then transitioned to MARIO Lieberman. I did not personally interview or examine this patient, and I was not otherwise directly involved in the decision making or delivery of care for this patient. (TAD LINDSEY MD) ERIC STEPHENS Jan 31, 2023 11:18 TAD LINDSEY MD Jan 31, 2023 19:53
--- NOTE | 2023-01-31 11:54 | Diagnostic Imaging Report ---
INDICATION: Chest pain. TECHNIQUE/COMPARISON: A single AP view of the chest was obtained with comparison made to the study of 12/13/2022. FINDINGS: There is continued background air trapping indicating emphysema. There is mild increased density in the right hilum; however, the right infrahilar region has shown improvement in aeration. No significant pleural fluid is seen. IMPRESSION: The right hilar prominence may reflect edema, pneumonitis, or scarring. The possibility of underlying adenopathy is not fully excluded. Otherwise, no acute abnormality or adverse change is seen. Consideration could be given to short-term radiographic followup to document ongoing stability. Dictated by: Dictated on workstation # [id number]
[2023-01-31 13:56] VITALS: BP 115/60
== END 2023-01-31 13:56 | disposition home or self-care (01) ==
LOC: EDUNIT# 10:30 → ER 10:34
DX: R07.2 Precordial pain (principal); E11.649 Type 2 diabetes mellitus with hypoglycemia without coma; C64.9 Malignant neoplasm of unspecified kidney, except renal pelvis; C78.00 Secondary malignant neoplasm of unspecified lung; I45.10 Unspecified right bundle-branch block; F17.210 Nicotine dependence, cigarettes, uncomplicated; Z79.4 Long term (current) use of insulin; Z79.84 Long term (current) use of oral hypoglycemic drugs; Z87.09 Personal history of other diseases of the respiratory system
CPT/HCPCS: 36415; 71045; 80053; 82947; 83735; 83874; 84484; 85025; 85610; 85730; 93005; 93041

== ENCOUNTER 2023-03-06 08:29 | Outpatient (RCR) | payer BC ==
[~2023-03-06] VITALS: Ht 188 cm; Wt 75.8 kg
[~2023-03-06 08:29] MED LIST changes: +HEParin (CENTRAL IV FLUSH) 500 UNIT/5 ML SYR IV PRN; +NIVOLUMAB 480 MG in NS (IVPB) 100 ML 100 ML IV SCH; +NS (IVPB) 250 ML 250 ML IV SCH; +NS IV 500 ML (CANCER CENTER) IV SCH
[2023-03-06 15:25] VITALS: BP 139/64
[2023-03-06 15:39] LABS: BASOPHILS % (AUTO) 0 % (0-10); EOSINOPHILS # (AUTO) 0.4 10^3/uL (0.0-0.3); EOSINOPHILS % (AUTO) 5 % (0-10); HEMATOCRIT 35 % (40-54); HEMOGLOBIN 10.9 g/dL (13.3-17.7); LYMPHOCYTES # (AUTO) 1.6 10^3/uL (1.0-4.0); LYMPHOCYTES % (AUTO) 19 % (12-44); MEAN CORPUSCULAR HEMOGLOBIN 30 pg (25-34); MEAN CORPUSCULAR HGB CONC 31 g/dL (32-36); MEAN CORPUSCULAR VOLUME 96 fL (80-99); MEAN PLATELET VOLUME 9.6 fL (9.0-12.2); MONOCYTES # (AUTO) 0.8 10^3/uL (0.0-1.0); MONOCYTES % (AUTO) 10 % (0-12); NEUTROPHILS # (AUTO) 5.4 10^3/uL (1.8-7.8); NEUTROPHILS % (AUTO) 66 % (42-75); PLATELET COUNT 212 10^3/uL (130-400); WHITE BLOOD COUNT 8.2 10^3/uL (4.3-11.0)
[2023-03-06 16:00] LABS: ALBUMIN 4.1 GM/DL (3.2-4.5); BILIRUBIN,TOTAL 0.5 MG/DL (0.1-1.0); CALCIUM 8.8 MG/DL (8.5-10.1); CREATININE SERUM 1.39 MG/DL (0.60-1.30); POTASSIUM 4.2 MMOL/L (3.6-5.0); TOTAL PROTEIN 6.6 GM/DL (6.4-8.2)
== END 2023-04-02 | disposition home or self-care (01) ==
LOC: ONC 08:29
PROVIDERS: ATTEND Internal Medicine Hematology & Oncology
DX: Z51.11 Encounter for antineoplastic chemotherapy (principal); C64.2 Malignant neoplasm of left kidney, except renal pelvis; C78.01 Secondary malignant neoplasm of right lung; E11.9 Type 2 diabetes mellitus without complications; I12.9 Hypertensive chronic kidney disease with stage 1 through stage 4 chronic kidney disease, or unspecified chronic kidney disease; N18.30 Chronic kidney disease, stage 3 unspecified; R19.7 Diarrhea, unspecified; Z72.0 Tobacco use
CPT/HCPCS: 80053; 85025; 96413; G0463; 36415; 99214

== ENCOUNTER → 2023-05-02 | Outpatient (RCR) | payer BC ==
[2023-04-04 15:30] VITALS: BP 138/53
[2023-04-04 15:41] LABS: BASOPHILS % (AUTO) 0 % (0-10); EOSINOPHILS # (AUTO) 0.2 10^3/uL (0.0-0.3); EOSINOPHILS % (AUTO) 2 % (0-10); HEMATOCRIT 35 % (40-54); HEMOGLOBIN 10.9 g/dL (13.3-17.7); LYMPHOCYTES # (AUTO) 1.8 10^3/uL (1.0-4.0); LYMPHOCYTES % (AUTO) 16 % (12-44); MEAN CORPUSCULAR HEMOGLOBIN 30 pg (25-34); MEAN CORPUSCULAR HGB CONC 31 g/dL (32-36); MEAN CORPUSCULAR VOLUME 95 fL (80-99); MONOCYTES # (AUTO) 0.8 10^3/uL (0.0-1.0); MONOCYTES % (AUTO) 7 % (0-12); NEUTROPHILS # (AUTO) 8.4 10^3/uL (1.8-7.8); NEUTROPHILS % (AUTO) 74 % (42-75); PLATELET COUNT 242 10^3/uL (130-400); WHITE BLOOD COUNT 11.3 10^3/uL (4.3-11.0)
[2023-04-04] MEDS: NIVOLUMAB 480 MG in NS (IVPB) 100 ML 100 ML IV SCH (15:47)
[2023-04-04 15:57] LABS: ALBUMIN 4.3 GM/DL (3.2-4.5); BILIRUBIN,TOTAL 0.4 MG/DL (0.1-1.0); CALCIUM 9.1 MG/DL (8.5-10.1); CREATININE SERUM 1.68 MG/DL (0.60-1.30); TOTAL PROTEIN 6.4 GM/DL (6.4-8.2)
[~2023-05-02] VITALS: Ht 188 cm; Wt 79.0 kg
[~2023-05-02] MED LIST changes: -NIVOLUMAB 480 MG in NS (IVPB) 100 ML 100 ML IV SCH
[2023-05-02 15:53] VITALS: BP 102/55
[2023-05-02] MEDS: NIVOLUMAB 480 MG in NS (IVPB) 100 ML 100 ML IV SCH (15:53)
[2023-05-02 16:18] LABS: ALBUMIN 4.1 GM/DL (3.2-4.5); BILIRUBIN,TOTAL 0.6 MG/DL (0.1-1.0); CALCIUM 8.9 MG/DL (8.5-10.1); CREATININE SERUM 1.63 MG/DL (0.60-1.30); POTASSIUM 5.2 MMOL/L (3.6-5.0); TOTAL PROTEIN 6.6 GM/DL (6.4-8.2)
[2023-05-02 16:23] LABS: BASOPHILS % (AUTO) 1 % (0-10); EOSINOPHILS # (AUTO) 0.5 10^3/uL (0.0-0.3); EOSINOPHILS % (AUTO) 6 % (0-10); HEMATOCRIT 34 % (40-54); HEMOGLOBIN 10.5 g/dL (13.3-17.7); LYMPHOCYTES # (AUTO) 1.8 10^3/uL (1.0-4.0); LYMPHOCYTES % (AUTO) 21 % (12-44); MEAN CORPUSCULAR HEMOGLOBIN 30 pg (25-34); MEAN CORPUSCULAR HGB CONC 31 g/dL (32-36); MEAN CORPUSCULAR VOLUME 96 fL (80-99); MEAN PLATELET VOLUME 10.1 fL (9.0-12.2); MONOCYTES # (AUTO) 0.9 10^3/uL (0.0-1.0); MONOCYTES % (AUTO) 10 % (0-12); NEUTROPHILS # (AUTO) 5.4 10^3/uL (1.8-7.8); NEUTROPHILS % (AUTO) 61 % (42-75); PLATELET COUNT 222 10^3/uL (130-400); WHITE BLOOD COUNT 8.8 10^3/uL (4.3-11.0)
== END | disposition home or self-care (01) ==
LOC: ONC 04-04 08:34
PROVIDERS: ATTEND Internal Medicine Hematology & Oncology
DX: Z51.11 Encounter for antineoplastic chemotherapy (principal); C64.2 Malignant neoplasm of left kidney, except renal pelvis; C78.01 Secondary malignant neoplasm of right lung; E11.9 Type 2 diabetes mellitus without complications; I12.9 Hypertensive chronic kidney disease with stage 1 through stage 4 chronic kidney disease, or unspecified chronic kidney disease; N18.30 Chronic kidney disease, stage 3 unspecified; R19.7 Diarrhea, unspecified; Z72.0 Tobacco use
CPT/HCPCS: 80053; 82274; 82728; 83540; 83550; 85025; 96413; G0463; 36415; 99214